=== PATIENT | male | born 1970 | race African-American/Black ===

== ENCOUNTER 2017-11-26 09:29 | Emergency (ER) | payer OTHER, SELFPAY ==
[2017-11-26 09:30] VITALS: BP 174/103; PULSE 100; RESP 16; TEMP 36.9; O2SAT 97; BMI 39.9
--- NOTE | 2017-11-26 09:45 | ED.DCSUM_ITS ---
- ER Visit Summary Date of Service: 11/26/17 Chief Complaint: Left groin pain History of Present Illness: The patient is a 47 M with left groin pain for the past couple of weeks. Patient was seen by a nurse practitioner at his PCPs office. He states he had a urinalysis and a testicular ultrasound done. He states he was called today and told that they saw something on ultrasound that requires follow-up with urology. Patient advised the pain was worse today so they had told him to come to the emergency room. He denies dysuria or hematuria. He denies fever or chills. Physical Examination: His are remarkable for a blood pressure 174/103, otherwise unremarkable. Head neck examination is unremarkable. Heart is regular rate and rhythm. Lung sounds are clear. Abdomen is soft with tenderness in the inferior aspect of the left lower quadrant. No masses are noted in the left inguinal region. He has active bowel sounds throughout. There is no CVA tenderness. Test Results: CBC and chemistry studies are significant only for a creatinine of 1.36. Urinalysis shows protein only. DT flank shows no acute process. There is mild colonic diverticulosis. There is no inguinal hernia. Emergency Department Course and Treatment: Patient was given morphine, Zofran, Toradol, and IV fluids. Ultrasound from the [facility] was obtained. There is prominent size of the epididymis bilaterally. There is a nodule in the tail of the epididymis on the right. There is calcification of the epididymis on the left. Small bilateral hydroceles are noted. On repeat evaluation the patient is resting comfortably. examination was performed he does have mild tenderness over the epididymis on the left. Patient now tells me that he did have antibiotics called into the pharmacy by the [facility]. I called the pharmacy and he has doxycycline as well as Cipro. I will write him a short course of Prosper to help cover pain. Treatment Plan: [] Disposition: Discharge Impression: Left-sided epididymitis This note was generated with [employer] dictation software. It may contain incorrect words, spelling, and punctuation that were not noted in review of the chart prior to signing ED Disposition - Plan for ED Patient: Chief Complaint: Other, Pain/Inj Referrals: Colton Hammond MD [Primary Care Provider] -
[2017-11-26] MEDS: Morphine 4 MG/ML Syringe IV (09:59)
[2017-11-26] MEDS: Ondansetron 4 MG/2 ML Vial IV (09:59)
[2017-11-26] MEDS: 0.9% Normal Saline 1,000 ML 150 ML IV (09:59)
[2017-11-26] MEDS: Ketorolac 30 MG/ML Syringe IV (09:59)
--- NOTE | 2017-11-26 10:05 | CT_ITS ---
STUDY: CT ABDOMEN AND PELVIS WITHOUT CONTRAST REASON FOR EXAM: Male, 47 years old. Groin pain for 2 weeks. RADIATION DOSAGE (If Supplied By Facility): CTDIvol = ( 22.58 ) mGy, DLP = ( 1212.81 ) mGycm TECHNIQUE: Transaxial images were obtained from the dome of the diaphragm to the symphysis pubis without oral contrast, and without intravenous contrast. Sagittal and coronal images were reconstructed. Individualized dose optimization techniques were used for this CT. COMPARISON: None. FINDINGS: The visualized lung bases are unremarkable. The visualized portions of the heart are within normal limits. Normal liver. Normal gallbladder and extrahepatic biliary system. Normal spleen. Normal pancreas. Normal bilateral adrenal glands. Normal right kidney. Normal left kidney. Normal visualized stomach. There is no evidence for dilated bowel, ascites or pneumoperitoneum. Small bowel has a grossly normal appearance. Stool is visible throughout the colon. There are scattered colonic diverticula. The appendix is visualized and appears normal. There is mild atherosclerotic calcification of the abdominal aorta, without a demonstrated aneurysm. Normal inferior vena cava. Normal retroperitoneum. Normal urinary bladder. Normal visualized prostate gland. Normal abdominal wall. Patient has had discectomy at L5-S1 and surgical fusion. CT/Abdomen/Pelvis without Cont IMPRESSION: 1. No CT evidence of acute intra-abdominal disease. 2. Mild colonic diverticulosis. 3. No CT evidence for inguinal hernia. Electronically Signed: Giselle Cordova MD at 10:53 EDT , Service support ,
[2017-11-26 10:15] LABS: Absolute Lymphocyte Count 2.91 X10^3/ul (0.83-4.51); Absolute Neutrophil Count 5.7 X10^3/uL (2.0-7.7); Anion Gap 7 (5-15); BUN 12 mg/dL (7-18); BUN/Creat Ratio 8.8 RATIO (10-20); Basophil# 0.02 X10^3/uL; Basophil% 0.2 % (0-1); Calcium,Total 9.2 mg/dL (8.5-10.1); Chloride 106 mmol/L (98-107); Creatinine, Serum 1.36 mg/dL (0.70-1.30); EST Glomerular Filtration Rate 60 mL/min (>60); Eosinophils% 1.1 % (0-5); Est Glom Filt Rate - Afr Amer 73 mL/min (>60); Estimated Creatinine Clearance 68.59 ml/min; Glucose 107 mg/dL (74-106); Hematocrit 43.3 % (40-54); Lymphocyte # 2.91 X10^3/ul (4.0); Lymphocyte % 31.1 % (19-41); Mean Corp Hgb Conc 34.6 g/gl (32-36); Mean Corpuscular Hgb 31.7 pg (27.0-32.0); Mean Corpuscular Volume 91.5 fL (80-94); Mean Platelet Vol. 11.1 fl (6.2-12.0); Monocyte# 0.59 X10^3/uL; Monocyte% 6.3 % (0-10); Neutrophil # 5.71 X10^3/uL (2.7-7.7); Platelet Count 241 K/mm3 (150-450); RBC Distribution Width CV 12.1 % (11.6-14.6); RBC Distribution Width SD 39.8 fl (35.1-43.9); Red Blood Count 4.73 M/mm3 (4.6-6.2); Sodium Level 140 mmol/L (136-145); White Blood Count 9.4 K/mm3 (4.4-11.0)
[2017-11-26 10:23] LABS: POSITIVE COUNT NO; POSITIVE DIFFERENTIAL NO; POSITIVE MORPHOLOGY NO
[2017-11-26 10:34] LABS: Bacteria 0 SEEN /hpf (None Seen); Mucous, Urine 0 SEEN /hpf (<or=2+); Red Blood Cells-Urine 0 SEEN /hpf (0-5); White Blood Cells 0 SEEN /hpf (0-5)
[2017-11-26 10:36] LABS: Color, Urine Yellow (Yellow); Glucose, Dipstick Normal (Normal); Ketone-Dipstick Negative (Negative); Leukocyte Esterase-Dipstick Negative /ul (Negative); Nitrite-Dipstick Negative (Negative); Occult Blood-Urine Negative /ul (Negative); Protein-Dipstick 15 mg/dl (Negative); Urine Bilirubin Dipstick Negative (Negative); Urine Clarity Clear (Clear); Urine Urobilinogen Normal (Normal)
[2017-11-26 10:51] LABS: Squamous Epithelial Cells - UA 0-5 SEEN /hpf (0-5)
--- NOTE | 2017-11-26 11:41 | DCINST.ED_ITS ---
ED Disposition - Plan for ED Patient: Disposition: Home or Assisted Living Chief Complaint: Other, Pain/Inj Instructions: ED Epididymitis Prescriptions: Hydrocodone Bitart/Apap 5-325 [[place] 5/325] 1 - 2 tablet PO Q6H PRN PRN 3 Days # 12 tablet PRN Reason: Pain Referrals: Colton Hammond MD [Primary Care Provider] - Stefano Enciso MD [STAFF PHYSICIAN] - 1-2 Weeks
[2017-11-26 12:14] VITALS: BP 135/89; PULSE 85; RESP 17
== END 2017-11-26 12:16 | disposition home or self-care (01) ==
PROVIDERS: Emergency Provider Emergency Medicine; Family Provider Family Medicine; PCP Family Medicine
DX: N45.1 Epididymitis (principal); N43.3 Hydrocele, unspecified; K57.30 Diverticulosis of large intestine without perforation or abscess without bleeding; E66.9 Obesity, unspecified; I10 Essential (primary) hypertension; Z86.39 Personal history of other endocrine, nutritional and metabolic disease; M54.9 Dorsalgia, unspecified; G89.29 Other chronic pain; Z79.899 Other long term (current) drug therapy; Z72.0 Tobacco use
CPT/HCPCS: 74176; 80048; 81001; 85025; 96361; 96374; 96375; 99283; J7030; A4216; J2405

== ENCOUNTER → 2020-06-05 17:16 | Outpatient (CLI) | payer BC, SELFPAY | PROVIDERS: PCP Family Medicine; Referring Provider Nurse Practitioner Family; Visit Provider Nurse Practitioner Family | DX: Z20.828 Contact with and (suspected) exposure to other viral communicable diseases (principal) | CPT/HCPCS: 87635; C9803; U0003 ==

== ENCOUNTER 2020-07-14 10:00 | Emergency (ER) | payer BC, SELFPAY ==
[2020-07-14 10:00] VITALS: BP 184/116; PULSE 91; RESP 16; TEMP 36.6; O2SAT 100; BMI 34.4
--- NOTE | 2020-07-14 10:18 | ED.VIS.GEN ---
History of Present Illness Informant: Patient Onset: Days Timing: Continuous Narrative: 49-year-old male with past medical history of hypertension presents with fever, chills, productive cough, body aches, and loss of taste and smell x3 days. He states last night and today he felt short of breath which is what brought him in. He feels wheezy like when he had childhood asthma but states he does not have asthma now or use any inhalers. He does smoke half pack per day. Denies sick contacts. Denies chest pain, nausea, vomiting, or abdominal pain. He did have minor loose stools. He is still eating and drinking normally. Denies recent surgery or travel, leg pain or swelling, hemoptysis, or history of DVT/PE. <Pam Bonner - Last Filed: 07/14/20 11:32> <Vincent Devi - Last Filed: 07/14/20 12:12> Chief Complaint: Shortness of Breath Past Medical History Past Medical History: - - Hypertension Surgical History: noncontributory Smoking Status: Current every day smoker <Pam Bonner - Last Filed: 07/14/20 11:32> <Vincent Devi - Last Filed: 07/14/20 12:12> - Allergies and Home Meds Allergies/Adverse Reactions: Allergies No Known Allergies Allergy (Verified 11/26/17 09:32) Primary Care Physician: Colton Hammond MD [Primary Care Provider] - Review of Systems General: Reports: Chills, Fever, Malaise. Denies: Sweats, Weight loss Eyes: Denies: Visual changes - bilaterally, Diplopia ENT: Denies: Rhinorrhea, Sore throat Cardiovascular: Denies: Chest pain, Palpitations Respiratory: Reports: Dyspnea, Cough, Sputum, Dyspnea on exertion. Denies: Orthopnea Gastrointestinal: Reports: Diarrhea. Denies: Abdominal pain, Nausea, Vomiting, Constipation, Melena, Hematochezia Genitourinary: Denies: Dysuria, Hematuria, Frequency Musculoskeletal: Reports: Myalgias. Denies: Swelling, Extremity Pain Skin: Denies: Rash, Wounds Neurological: Denies: Headache, Weakness, Parasthesia, Numbness <Pam Bonner - Last Filed: 07/14/20 11:32> Physical Exam Vital Signs/Narrative: Vital Signs Temp Pulse Resp BP Pulse Ox 07/14/20 10:00 97.8 F 91 16 184/116 H 100 General: Well nourished, Well developed, No Acute Distress Head: Normocephalic, Atraumatic Eyes: Perrl, EOMI ENT: Moist mucous membranes, No rhinorrhea Neck: Supple, Nontender Cardiovascular: Regular rate, Regular rhythm, No murmurs Respiratory: No distress, Chest nontender, - - Minor expiratory wheezing in right lung base, otherwise clear Abdomen: Soft, Nontender, Nondistended, Normal bowel sounds Back: Nontender, Normal Inspection Extremities: Nontender, No edema Skin: Normal color, No rash Neurological: Alert, Oriented x3, Cranial nerves II-XII grossly intact Psychological: Normal affect, Normal Mood <Pam Bonner - Last Filed: 07/14/20 11:32> Vital Signs/Narrative: Vital Signs Temp Pulse Resp BP Pulse Ox 07/14/20 11:28 81 16 168/84 H 99 07/14/20 10:00 97.8 F 91 16 184/116 H 100 <Vincent Devi - Last Filed: 07/14/20 12:12> Diagnostic/Tx/Re-eval Clinical Impression(s) from Imaging Studies Chest X-Ray 07/14/20 10:35 IMPRESSION: Normal x-ray examination of the chest. Electronically Signed: Davey Ghosh MD at 11:03 EST Tel , Service support , - Medical Decision Making Patient presented with symptoms consistent with Covid x3 days. He appears well nontoxic. Vital signs show BP of 184/116, otherwise normal. 100% on room air. He is conversing in full sentences in no respiratory distress. Lungs had very minor wheezing in the right lung base, otherwise normal exam. Chest x-ray was interpreted by ED attending and myself and shows no acute process. Radiology read agrees. Patient was given an albuterol inhaler and Tylenol. COVID-19 test is pending but I told him his symptoms are consistent with Covid and he needs to assume he has an self quarantine. I have no concern for ACS/PE with his history. He is also Wells and PERC negative. He is stable for outpatient management of his viral illness. I recommended rest, fluids, and [id number] pain medications. Return for new or worsening symptoms. He was agreeable and discharged home in stable condition. <Pam Bonner - Last Filed: 07/14/20 11:32> - Medical Decision Making Patient has cough and shortness of breath. He is a smoker. His vital signs all appear normal. His pulse ox is 100% on room air. Patient's chest x-ray is negative. He will be discharged home. His outpatient Covid test is pending. <Vincent Devi - Last Filed: 07/14/20 12:12> ED Disposition <Pam Bonner - Last Filed: 07/14/20 11:32> <Vincent Devi - Last Filed: 07/14/20 12:12> - Plan for ED Patient: Disposition: Home or Assisted Living Diagnosis: Viral respiratory illness Instructions: ED Upper Resp Infec No Abx Tx Referrals: Colton Hammond MD [Primary Care Provider] -
--- NOTE | 2020-07-14 10:35 | RAD_ITS ---
STUDY: X-RAY CHEST REASON FOR EXAM: Male, 49 years old. loss of taste and smell, sob TECHNIQUE: Single AP portable view of the chest. COMPARISON: 06/20/2016 FINDINGS: The lungs are clear and expanded. There is no demonstrated pleural abnormality. Normal size heart. Normal mediastinum and [place]. Normal visualized pulmonary arteries. Normal visualized aortic arch and descending thoracic aorta. Normal visualized thoracic spine. Normal visualized ribs, clavicles, and shoulders. There is no demonstrated abnormality of the visualized soft tissue structures of the upper abdomen. RAD/Chest 1 View (Portable) IMPRESSION: Normal x-ray examination of the chest. Electronically Signed: Davey Ghosh MD at 11:03 EST Tel , Service support ,
[2020-07-14] MEDS: Acetaminophen 500 MG Tablet 1000 MG PO (10:42)
[2020-07-14 11:28] VITALS: BP 168/84; PULSE 81; RESP 16; O2SAT 99
--- OUTSIDE RECORDS SUMMARY | 2020-08-21 05:23 | XMS RPT_ITS | CCD ---
:1970 External Reference #:[id number] Author Organization [facility] Care Team Providers Name Role Phone AMY VERDUGO Unavailable Unavailable Yocasta VERDUGO Unavailable Unavailable Unavailable Primary Care Provider Unavailable Allergies Reported Allergen Reaction(s) Severity Date of Onset Location LORazepam Translations: [ GI Upset 06-10-2016 - [facility] Other LORAZEPAM] [facility] PARoxetine Translations: GI Upset 12-25-2015 - [facility] Other [ PAROXETINE HCL] Dredge Runner ository sertraline Translations: GI Upset 06-10-2016 - [facility] Other [ SERTRALINE] [facility] Reposit ory Medications Medication Name Sig Date Prescriber Location Atenolol atenolol (TENORMIN) 50 01-19-2017 [facility] mg tablet Indications: (4419 5) Palpitations Take 1 tablet by mouth once daily. 90 tablet 3 01/19/2017 Active Comment: Take 1 tablet by mouth once daily. atorvastatin atorvastatin (LIPITOR) 01-19-2017 [facility] 80 mg tablet Take 1 (86920) tablet by mouth once daily. 90 tablet 1 01/19/2017 Active Comment: Take 1 tablet by mouth once daily. 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 30 capsule 1 02/29/2020 Active Comment: Take 1 capsule by mouth once daily. 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 30 tablet 1 02/29/2020 Active Comment: Take 1 tablet by mouth once daily. Problems Active Problems Category Problem Name Status Date Location Anxiety disorders Agoraphobia Active 01-24-2015 - [facility] ([id number]) Disorders of lipid Mixed hyperlipidemia Active 06-28-2014 [facility] metabolism (13585) Essential hypertension Essential hypertension Active 06-28-20 - [facility] (13073) Other liver diseases Steatosis of liver Active 03-28-2016 [facility] (66258) Substance-related Smoker Active 07-10-2016 - [facility] disorders (42718) Unclassified Unknown / UNK(Unknown) Active 07-02-2017 - [facility] (86392) Unclassified Patient encounter status Active 06-28-2014 - [facility] (64540) Past or Other Problems Category Problem Name Status Date Location Cardiac dysrhythmias Palpitations Completed 06-28-2014 - [facility] ([id number]) Other and unspecified Neurofibroma Completed 08-13-2014 - [facility] benign neoplasm (97455) Other screening for Liver function tests Completed 03-28-2016 - [facility] suspected conditions abnormal (02144) (not mental disorders or infectious disease) Residual codes; Current drinker Completed 07-10-2016 - [facility] unclassified (08654) Spondylosis; Low back pain Completed 07-03-2011 - [facility] ic intervertebral disc (62696) disorders; other back problems Results Result Name Value Range Unit Interpretation Flag Date Location [facility] on 2020-07-30 [facility] Telephone (FAMPWS) Normal 07-30-2020 [facility] JASON MOORE ([id number]) 1970 [facility] Date Time Provider Department ([id number]) 07/30/20 KOTA BARBA ([facility]) FAMPWS During your visit today, we recorded the following informati on about you: Jadon Martinez Cma 07/30/2020 12:49 PM Signed ----- Message from Kota (Dylan.Noel) BALBINA Barba DIMENSION STONE QUARRY SUPERVISOR sent at 07/30/2020 11:38 AM EST ----- Please inform the patient that their COVID19 test results ar e negative. No further testing is needed at this time. They should follow up with their PCP if they have additional concerns, questions or are still experiencing symptoms. Kota Barba DNP.CNP [facility] 07/30/2020 12:51 PM Signed Left message for patient to return call to office [facility] 07/31/2020 2:41 PM Signed No answer mychart message sent to patient [facility] Allergies As of Date: 07/30/2020 Noted Allergy Reaction ATIVAN (LORAZEPAM) 06/10/2016 8 - GI Upset PAXIL (PAROXETINE HCL) 12/25/2015 8 - GI Upset Comments: diarrhea ZOLOFT (SERTRALINE) 06/10/2016 8 - GI Upset Date Reviewed: 06/05/2020 Reviewed by: Oksana Sears LPN - Fully Assessed Reason for Visit: Results [95] Prescriptions as of 07/30/2020 Sig: HYDROCHLOROTHIAZIDE 12.5 MG C* Take 1 capsule by mouth once * LISINOPRIL 10 MG TABLET Take 1 tablet by mouth once d* ATENOLOL 50 MG TABLET Take 1 tablet by mouth once d* Patient not taking: Reported on 02/29/2020 ATORVASTATIN 80 MG TABLET Take 1 tablet by mouth once d* Patient not taking: Reported on 02/29/2020 Problem List As Of Date 07/30/2020 Noted Resolved Left-sided low back pain without sciatica [M54.*07/03/2011 Essential hypertension with goal blood pressure*06/28/2014 Palpitations [R00.2] 06/28/2014 More... Mixed hyperlipidemia [E78.2] 06/28/2014 Well adult exam [Z00.00] 06/28/2014 More... Neurofibroma [D36.10] 08/13/2014 More... Family history of malignant neoplasm of gastroi*09/28/2014 0 09/28/2014 Agoraphobia [F40.00] 01/24/2015 Situational anxiety [F41.8] 01/24/2015 Fatty liver [K76.0] 03/28/2016 Elevated LFTs [R79.89] 03/28/2016 Chronic bilateral low back pain without sciatic*06/10/2016 Prostate cancer screening [Z12.5] 07/10/2016 Smoker [F17.200] 07/10/2016 More... Alcohol use [Z72.89] 07/10/2016 More... Encounter Status:Closed by WORKMAN JADON WHITE on 07/31/20 progress on 2020-06 PROGRESS HNO ID: [id number] Normal 07-23-2020 [facility] Author: Kota (Dnp.Noel) JOSEE Barba [place] [facility] ([id number]) Service: ? Author Type: Nurse Practitioner Type: Progress Notes Filed: 07/23/2020 8:12 AM Note Text: Telemedicine Evaluation for Suspected COVID-19 Infection or COVID19 like symptoms. This Team Access Model visit is a virtual encounter. It requ ired patient-provider interaction for the medical decision making as documented below. Patient was offered a virtual/telemedicine appointmen t in lieu of an office visit due to recommendations to reduce patient exp osure to COVID-19. HIPAA secured video was used for evaluation of this patient. Patient agrees to the visit: Yes Patient Location: [place] Chief Complaint Patient presents with: Covid19 Concern SUBJECTIVE: Jason Moore is an 49 year old who presents with an illness that began 10 day(s) ago and are improving since that time. Reports: Seen at [facility] emergency room on July 15 for Covid-like symptoms. Had Covid symptoms that started on . Was treated at the emergency room at [facility] and tested positive for Covid. He was notified on the that he had tested positive. Had diarrhea, fever, cough, shortness of breath, l oss of taste and smell and just not feeling well. He has been fever free for over 72 hours. He just has a small amount of occasional loose stool/ diarrhea. Still has some loss of taste and smell but that is gradually returning. Currently needs a confirmatory test to return to work. Reque sting that to be completed. Otherwise he is recovering from his symptoms. He is on quarantine through today. Has the patient had any ill contacts? No Does the patient have the following symptoms or signs? *Fever: (Temp 100.4F or greater) No *Coughing: Yes *Shortness of breath: No Chills or shaking with chills: No Muscle aches/pain: No New loss of taste or smell: Yes Headache: No Decreased level of consciousness: No Nasal congestion: No Sore throat: No Vomiting: No Diarrhea: Yes Decreased appetite: No Signs of dehydration (low fluid intake or voiding, diarrhea, dry mucus membranes): No Past medical history, appointments, medications, allergies r miguel angel 07/23/2020 Previous Medical History PAST MEDICAL HISTORY Diagnosis Date - Back pain - Hypertension Previous Surgical History PAST SURGICAL HISTORY Procedure Laterality Date - APPL-INTERVERTEBRAL BIOMECHANICAL DEVICES - COLONOSCOP W/ OR W/O BRSH SPEC 09/28/14 Colonoscopy, repeat 5 yrs - INSERT VERT FIX DEV,ANT,3 SGMTS - PAST SURGICAL HISTORY OF back injections and disc biopsy - SPIN BONE ALLOGRFT STRUCTURAL 2012 FUSION AND REPLACED DISC Review of Symptoms GENERAL: No malaise or fatigue. No fevers. HEENT: Negative for headaches No earaches No sore throat Nose negative for congestion and nasal discharge NECK: Negative for pain or swelling. No lumps RESPIRATORY: No wheezing, SOB, Difficulty breathing. Minimal dry cough CARDIOVASCULAR: Negative for chest pain GI: No nausea, vomiting. Occ diarrhea/loose stool MUSCULOSKELETAL: Negative for bodyaches SKIN: Negative for rash or itching EXAM/OBJECTIVE: There were no vitals taken for this visit. Virtual visit completed using video, limited exam completed. Patient sounds or appears ill: No General Appearance: Well appearing, alert, in no acute distr ess, well-hydrated, well nourished. Skin: Skin color normal Head: Normocephalic. No facial swelling or redness. EENT: Eyes nonreddened. No discharge. External ears nonredde ellis and no swelling. Neck: No mass or lesions. No swelling. FROM Patient is not able to speak in complete sentences: No Patient has labored breathing: No. Is audibly coughing: No Psych: Attitude - Cooperative, easily engaged in conversatio n Affect - Euthymic, normal mood Mental status: Alert. Speech is clear and fluent with good r epetition, comprehension Appearance - Normal hygiene and grooming appropriate Coordination: No abnormal or extraneous movements. Gait/Stance: Posture is normal. Data reviewed Last 5 Encounter BP Readings: Date: BP: 06/05/2020 172/102 02/29/2020 156/100 11/22/2017 150/98 11/13/2016 132/90 07/10/2016 120/70 BMI Readings from Last 5 Encounters: 06/05/20 : 35.25 kg/m? 02/29/20 : 35.52 kg/m? 11/22/17 : 40.32 kg/m? 11/13/16 : 36.39 kg/m? 07/10/16 : 35.26 kg/m? Last 5 Encounter Wt Readings: Date: Wt: 06/05/2020 109.9 kg (242 lb 3.2 oz) 02/29/2020 110.7 kg (244 lb) 11/22/2017 125.6 kg (277 lb) 11/13/2016 113.4 kg (250 lb) 07/10/2016 110.7 kg (244 lb) Medication and allergy list reviewed, reconciled and updated 07/23/2020 ASSESSMENT/PLAN: See encounter diagnoses and orders for additional plan. This patient encounter involved the screening or treatment o f novel coronavirus infection (COVID-19). ASSESSMENT/PLAN: 1. Lab test positive for detection of COVID-19 virus - ICD9: 079.89, ICD10: U07.1 Tested positive at [facility] Symptoms are resolving/improving Needs confirmatory test to return to work - Off quarantine N ovember 25 He has been fever free for greater than 24 hours. Lab test ordered for [facility] to be comple alexandrea there. Orders faxed by nursing staff. Patient will be informed of test results once returned. Kota Barba DNP.PRESIDENT PRACTICING UROLOGIST This note was completed with [employer] dictation software. Note was reviewed for accuracy. There may be minor misspellings or gr ammar miscues with [employer]apter[employer] Dictation. [facility] [address], [place] [address] Total appointment time on virtual with patient = 12 minutes SIGNATURE: Kota Barba DNP.PRESIDENT PRACTICING UROLOGIST DATE: July 23, 2020 cnpn on 2020-07-22 CNPN Telephone (FAMPWS) Normal 07-22-2020 [place] [facility] JASON MOORE ([id number]) 1970 [facility] Date Time Provider Department ([id number]) 07/22/20 KOTA BARBA (DNP.PRESIDENT PRACTICING UROLOGIST) FAMPWS During your visit today, we recorded the following informati on about you: Zane Johnson RN 07/22/2020 11:25 AM Signed Pt called, verified by name and birthdate. Pt states h e was tested at [facility] on 07-14-2020 and was COVID +. Pt scheduled for follow up visit with PCP on 07-23-2020 Zane Johnson RN Allergies As of Date: 07/22/2020 Noted Allergy Reaction ATIVAN (LORAZEPAM) 06/10/2016 8 - GI Upset PAXIL (PAROXETINE HCL) 12/25/2015 8 - GI Upset Comments: diarrhea ZOLOFT (SERTRALINE) 06/10/2016 8 - GI Upset Date Reviewed: 06/05/2020 Reviewed by: Oksana Sears LPN - Fully Assessed Reason for Visit: COVID + [Other] Prescriptions as of 07/22/2020 Sig: HYDROCHLOROTHIAZIDE 12.5 MG C* Take 1 capsule by mouth once * LISINOPRIL 10 MG TABLET Take 1 tablet by mouth once d* ATENOLOL 50 MG TABLET Take 1 tablet by mouth once d* Patient not taking: Reported on 02/29/2020 ATORVASTATIN 80 MG TABLET Take 1 tablet by mouth once d* Patient not taking: Reported on 02/29/2020 Problem List As Of Date 07/22/2020 Noted Resolved Left-sided low back pain without sciatica [M54.*07/03/2011 Essential hypertension with goal blood pressure*06/28/2014 Palpitations [R00.2] 06/28/2014 More... Mixed hyperlipidemia [E78.2] 06/28/2014 Well adult exam [Z00.00] 06/28/2014 More... Neurofibroma [D36.10] 08/13/2014 More... Family history of malignant neoplasm of gastroi*09/28/2014 0 09/28/2014 Agoraphobia [F40.00] 01/24/2015 Situational anxiety [F41.8] 01/24/2015 Fatty liver [K76.0] 03/28/2016 Elevated LFTs [R79.89] 03/28/2016 Chronic bilateral low back pain without sciatic*06/10/2016 Prostate cancer screening [Z12.5] 07/10/2016 Smoker [F17.200] 07/10/2016 More... Alcohol use [Z72.89] 07/10/2016 More... Encounter Status:Closed by ZANE JOHNSON RN on 07/22/20 noeln on 2020-06-09 CNPN Telephone (UCWSTR) Normal 06-09-2020 [place] JASON Phillips ([id number]) 1970 [facility] Date Time Provider Department ([id number]) 06/09/20 YANY LUCERO UCWSTR During your visit today, we recorded the following informati on about you: Yany Lucero APRN.CNP 06/09/2020 9:23 AM Signed Please notify of negative covid test. Continue comfort measures for symptoms as you would for a cold. Any worsening symptoms follow up [facility] PCP or ER. JOSEE Chicas Ma 06/09/2020 10:54 AM Signed Patient notified of results, verbalizes understanding of instructions. Patient requesting a letter in [employer] to return to work. 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 Yany Lucero APRN.CNP 06/09/2020 10:59 AM Signed Letter generated and left at it help desk analyst for patient. Yany Lucero APRN.CNP Allergies As of Date: 06/09/2020 Noted Allergy Reaction ATIVAN (LORAZEPAM) 06/10/2016 8 - GI Upset PAXIL (PAROXETINE HCL) 12/25/2015 8 - GI Upset Comments: diarrhea ZOLOFT (SERTRALINE) 06/10/2016 8 - GI Upset Date Reviewed: 06/05/2020 Reviewed by: Oksana Sears LPN - Fully Assessed Reason for Visit: Results [95] Prescriptions as of 06/09/2020 Sig: HYDROCHLOROTHIAZIDE 12.5 MG C* Take 1 capsule by mouth once * LISINOPRIL 10 MG TABLET Take 1 tablet by mouth once d* ATENOLOL 50 MG TABLET Take 1 tablet by mouth once d* Patient not taking: Reported on 02/29/2020 ATORVASTATIN 80 MG TABLET Take 1 tablet by mouth once d* Patient not taking: Reported on 02/29/2020 Problem List As Of Date 06/09/2020 Noted Resolved Left-sided low back pain without sciatica [M54.*07/03/2011 Essential hypertension with goal blood pressure*06/28/2014 Palpitations [R00.2] 06/28/2014 More... Mixed hyperlipidemia [E78.2] 06/28/2014 Well adult exam [Z00.00] 06/28/2014 More... Neurofibroma [D36.10] 08/13/2014 More... Family history of malignant neoplasm of gastroi*09/28/2014 0 09/28/2014 Agoraphobia [F40.00] 01/24/2015 Situational anxiety [F41.8] 01/24/2015 Fatty liver [K76.0] 03/28/2016 Elevated LFTs [R79.89] 03/28/2016 Chronic bilateral low back pain without sciatic*06/10/2016 Prostate cancer screening [Z12.5] 07/10/2016 Smoker [F17.200] 07/10/2016 More... Alcohol use [Z72.89] 07/10/2016 More... Encounter Status:Closed by YANY LUCERO CNP on 06/09/20 cnco on 2020-06-09 [facility] Letter Text Normal 06-09-2020 [facility] ([id number]) cnpn on 2020-06-08 CNPN Telephone (FAMPWS) Normal 06-08-2020 [facility] JASON MOORE ([id number]) [address] [facility] Time Provider Department ([id number]) 06/08/20 [facility] FAMPWS During your visit today, we recorded the following informati on about you: Alisha Lawton Ma 06/08/2020 11:58 AM Signed Received negative covid test results from [facility] ordered by [facility] ent care Patient was notified Alisha Lawton Ma Allergies As of Date: 06/08/2020 Noted Allergy Reaction ATIVAN (LORAZEPAM) 06/10/2016 8 - GI Upset PAXIL (PAROXETINE HCL) 12/25/2015 8 - GI Upset Comments: diarrhea ZOLOFT (SERTRALINE) 06/10/2016 8 - GI Upset Date Reviewed: 06/05/2020 Reviewed by: Oksana Sears LPN - Fully Assessed Reason for Visit: Covid Follow Up [7216] Cmt: test results- neg Prescriptions as of 06/08/2020 Sig: HYDROCHLOROTHIAZIDE 12.5 MG C* Take 1 capsule by mouth once * LISINOPRIL 10 MG TABLET Take 1 tablet by mouth once d* ATENOLOL 50 MG TABLET Take 1 tablet by mouth once d* Patient not taking: Reported on 02/29/2020 ATORVASTATIN 80 MG TABLET Take 1 tablet by mouth once d* Patient not taking: Reported on 02/29/2020 Problem List As Of Date 06/08/2020 Noted Resolved Left-sided low back pain without sciatica [M54.*07/03/2011 Essential hypertension with goal blood pressure*06/28/2014 Palpitations [R00.2] 06/28/2014 More... Mixed hyperlipidemia [E78.2] 06/28/2014 Well adult exam [Z00.00] 06/28/2014 More... Neurofibroma [D36.10] 08/13/2014 More... Family history of malignant neoplasm of gastroi*09/28/2014 0 09/28/2014 Agoraphobia [F40.00] 01/24/2015 Situational anxiety [F41.8] 01/24/2015 Fatty liver [K76.0] 03/28/2016 Elevated LFTs [R79.89] 03/28/2016 Chronic bilateral low back pain without sciatic*06/10/2016 Prostate cancer screening [Z12.5] 07/10/2016 Smoker [F17.200] 07/10/2016 More... Alcohol use [Z72.89] 07/10/2016 More... Encounter Status:Closed by ALISHA LAWTON MA on 0 progress on 2020-05 PROGRESS HNO ID: [id number] Normal 06-05-2020 [facility] Author: Ronit Morin) [id number] Service: ? Author Type: Nurse Practitioner Type: Progress Notes Filed: 06/05/2020 9:23 AM Note Text: SUBJECTIVE Jason Moore is a 49 year old male who presents with 2 days of symptoms that are stable. Symptoms include: Fever (?100.4F): No or Chills: Yes Cough: Yes Shortness of breath: No or Difficulty breathing: No Fatigue: Yes Muscle aches: Yes Headache: Yes New loss of smell or taste: Yes Sore throat: Yes Nasal congestion: No or Rhinorrhea: No Nausea: Yes or Vomiting: No Diarrhea: No High risk category assessment Hypertension Exposures: Sick contacts? No Contact with anyone confirmed or probable COVID-19 infection in the last 14 days? No Family with confirmed COVID-19 infection? No Traveled or resided in an area with sustained or ongoing com munity transmission of COVID-19? Yes OTC meds/remedies that patient has tried: acetaminophen and NSAIDs. He reports that he has been smoking. He has a 10.50 pack-yea r smoking history. He has never used smokeless tobacco. BP 172/102 Pulse 82 Temp 36.7 ?C (98.1 ?F) (Tympanic) Resp 18 Wt 109.9 kg (242 lb 3.2 oz) BMI 35.25 kg/m? PAST MEDICAL HISTORY Diagnosis Date - Back pain - Hypertension PAST SURGICAL HISTORY Procedure Laterality Date - APPL-INTERVERTEBRAL BIOMECHANICAL DEVICES - COLONOSCOP W/ OR W/O BRSH SPEC 09/28/14 Colonoscopy, repeat 5 yrs - INSERT VERT FIX DEV,ANT,3 SGMTS - PAST SURGICAL HISTORY OF back injections and disc biopsy - SPIN BONE ALLOGRFT STRUCTURAL 2011 FUSION AND REPLACED DISC ALLERGIES Ativan [Lorazepam], Paxil [Paroxetine Hcl], and Zo loft [Sertraline] MEDICATIONS Hydrochlorothiazide 12.5 mg capsule Take 1 capsule by mouth once daily. lisinopril (ZESTRIL, PRINIVIL) 10 mg tablet Take 1 tablet by mouth once daily. atenolol (TENORMIN) 50 mg tablet Take 1 tablet by mouth once daily. atorvastatin (LIPITOR) 80 mg tablet Take 1 tablet by mouth o nce daily. FAMILY HISTORY Problem Relation Age of Onset - Colon Cancer Father 50 - Diabetes Father - Hypertension Father - Prostate Cancer Father 54 - Colon Cancer Paternal Grandfather - Diabetes Paternal Grandfather - Prostate Cancer Paternal Grandfather 50'S - Colon Cancer Paternal Uncle LATE 50'S - Coronary Artery Disease Maternal Aunt - Diabetes Paternal Uncle - Diabetes Paternal Aunt - Hypertension Paternal Grandmother - Hypertension Paternal Aunt - Hypertension Paternal Uncle - Hypertension Maternal Aunt - Hypertension Maternal Aunt - Prostate Cancer Paternal Uncle 50'S Social History Tobacco Use - Smoking status: Current Every Day Smoker Packs/day: 0.50 Years: 21.00 Pack years: 10.50 - Smokeless tobacco: Never Used Substance Use Topics - Alcohol use: Yes Comment: moderate amount of alcohol - Drug use: Not on file Physical Exam Constitutional: Appearance: Normal appearance. HENT: Nose: Nose normal. Mouth/Throat: Mouth: Mucous membranes are moist. Pharynx: Oropharynx is clear. Cardiovascular: Rate and Rhythm: Normal rate and regular rhythm. Heart sounds: Normal heart sounds. Pulmonary: Effort: Pulmonary effort is normal. No respiratory distress. Breath sounds: Normal breath sounds. No wheezing or rales. Skin: General: Skin is warm and dry. Neurological: Mental Status: He is alert. ASSESSMENT/PLAN No diagnosis found. ASSESSMENT/PLAN: 1. Suspected COVID-19 virus infection - ICD9: V01.79, ICD10: Z20.828 (primary diagnosis) - [facility] Advised self-isolation of patient for 10 days from symptom onset or until COVID 19 test is negative. 2. Viral URI with cough - ICD9: 465.9, ICD10: J06.9 - Discussed viral etiology and rationale for treatment. - Symptomatic treatment with prn analgesia - Supportive care with fluids and rest - The patient may also use warm salt water gargles, throat l ozenges and/or OTC throat spray as needed 3. Uncontrolled hypertension - ICD9: 401.9, ICD10: I10 - noncompliance - Recommend home blood pressure monitoring, to bring results in on next visit - Reviewed risks of HTN and principles of treatment - discussed with patient, he admits to not taking his HTN me dication in the last week. Encouraged compliance with medication. - Follow-up with your PCP in 3-5 days if symptoms have not i mproved or sooner if symptoms worsen - Discussed red flags and need for immediate medical evaluat ion if any occur. - Discussed supportive care treatment with fluids, rest and analgesia. - Discussed expected course of illness . Ronit Ghosh APRN.CNP Jason Moore appears to have COVID-19 infection and is high risk or with concerning symptoms, recommend COVID-19 testing. This patient encounter involved the screening or treatment o f novel coronavirus infection (COVID-19). - Red flags for in person care discussed - All questions answered SIGNATURE: Ronit Ghosh APRN.CNP PATIENT NAME: Jason Moore DATE: June 05, 2020 TIME: 9:00 AM cnov on 2020-06-05 CNOV Office Visit (UCWSTR) Normal 06-05-[address] [place] [address] [facility] JASON MOORE ([id number]) [address] [facility] Time Provider Department ([id number]) 06/05/20 8:45 AM RONIT GHOSH (PRESIDENT PRACTICING UROLOGIST) WSTR During your visit today, we recorded the following informati on about you: Temperature Pulse Respiration Blood pressure 98.1 degrees 82/minute 18/minute 172/102 Weight 109.9 kg Ronit Ghosh APRN.CNP 06/05/2020 9:23 AM Signed SUBJECTIVE Jason Moore is a 49 year old male who presents with 2 days of symptoms that are stable. Symptoms include: Fever (?100.4F): No or Chills: Yes Cough: Yes Shortness of breath: No or Difficulty breathing: No Fatigue: Yes Muscle aches: Yes Headache: Yes New loss of smell or taste: Yes Sore throat: Yes Nasal congestion: No or Rhinorrhea: No Nausea: Yes or Vomiting: No Diarrhea: No High risk category assessment Hypertension Exposures: Sick contacts? No Contact with anyone confirmed or probable COVID-19 infecti on in the last 14 days? No Family with confirmed COVID-19 infection? No Traveled or resided in an area with sustained or ongoing com munity transmission of COVID-19? Yes OTC meds/remedies that patient has tried: acetaminophen and NSAIDs. He reports that he has been smoking. He has a 10.50 pack-year smoking history. He has never used smokeless tobacco. BP 172/102 Pulse 82 Temp 36.7 ?C (98.1 ?F) (Tympanic) Resp 18 Wt 109.9 kg (242 lb 3.2 oz) BMI 35.25 kg/m? PAST MEDICAL HISTORY Diagnosis Date - Back pain - Hypertension PAST SURGICAL HISTORY Procedure Laterality Date - APPL-INTERVERTEBRAL BIOMECHANICAL DEVICES - COLONOSCOP W/ OR W/O BRSH SPEC 09/28/14 Colonoscopy, repeat 5 yrs - INSERT VERT FIX DEV,ANT,3 SGMTS - PAST SURGICAL HISTORY OF back injections and disc biopsy - SPIN BONE ALLOGRFT STRUCTURAL 2012 FUSION AND REPLACED DISC ALLERGIES Ativan [Lorazepam], Paxil [Paroxetine Hcl], and Zoloft [Sertraline] MEDICATIONS Hydrochlorothiazide 12.5 mg capsule Take 1 capsule by mouth once daily. lisinopril (ZESTRIL, PRINIVIL) 10 mg tab let Take 1 tablet by mouth once daily. atenolol (TENORMIN) 50 mg tablet Take 1 tablet by mouth once daily. atorvastatin (LIPITOR) 80 mg tablet Take 1 tablet by mouth o nce daily. FAMILY HISTORY Problem Relation Age of Onset - Colon Cancer Father 50 - Diabetes Father - Hypertension Father - Prostate Cancer Father 54 - Colon Cancer Paternal Grandfather - Diabetes Paternal Grandfather - Prostate Cancer Paternal Grandfather 50'S - Colon Cancer Paternal Uncle LATE 50'S - Coronary Artery Disease Maternal Aunt - Diabetes Paternal Uncle - Diabetes Paternal Aunt - Hypertension Paternal Grandmother - Hypertension Paternal Aunt - Hypertension Paternal Uncle - Hypertension Maternal Aunt - Hypertension Maternal Aunt - Prostate Cancer Paternal Uncle 50'S Social History Tobacco Use - Smoking status: Current Every Day Smoker Packs/day: 0.50 Years: 21.00 Pack years: 10.50 - Smokeless tobacco: Never Used Substance Use Topics - Alcohol use: Yes Comment: moderate amount of alcohol - Drug use: Not on file Physical Exam Constitutional: Appearance: Normal appearance. HENT: Nose: Nose normal. Mouth/Throat: Mouth: Mucous membranes are moist. Pharynx: Oropharynx is clear. Cardiovascular: Rate and Rhythm: Normal rate and regular rhythm. Heart sounds: Normal heart sounds. Pulmonary: Effort: Pulmonary effort is normal. No respiratory distress. Breath sounds: Normal breath sounds. No wheezing or rales. Skin: General: Skin is warm and dry. Neurological: Mental Status: He is alert. ASSESSMENT/PLAN No diagnosis found. ASSESSMENT/PLAN: 1. Suspected COVID-19 virus infection - ICD9: V0 1.79, ICD10: Z20.828 (primary diagnosis) - 2019 CORONAVIRUS- test ordered at [facility]. Advised self-isolation of patient fo r 10 days from symptom onset or until COVID 19 test is negative. 2. Viral URI with cough - ICD9: 465.9, ICD10: J06.9 - Discussed viral etiology and rationale for treatment. - Symptomatic treatment with prn analgesia - Supportive care with fluids and rest - The patient may also use warm salt haresh er gargles, throat lozenges and/or OTC throat spray as needed 3. Uncontrolled hypertension - ICD9: 401.9, ICD10: I10 - noncompliance - Recommend home blood pressure monitoring, to b ring results in on next visit - Reviewed risks of HTN and principles of treatment - discussed with patient, he admits to not taking his HTN medication in the last week. Encouraged compliance with medication. - Follow-up with your PCP in 3-5 days if symptom s have not improved or sooner if symptoms worsen - Discussed red flags and need for immediate med ical evaluation if any occur. - Discussed supportive care treatment with fluids, rest and analgesia. - Discussed expected course of illness . Ronit Ghosh APRN.PRESIDENT PRACTICING UROLOGIST Jason Moore appears to have COVID-19 infection and is high risk or with concerning symptoms, recommend COVID-19 testing. This patient encounter invol kiersten the screening or treatment of novel coronavirus infection (COVID-19). - Red flags for in person care discussed - All questions answered SIGNATURE: Ronit Ghosh APRN.CNP PATIENT NAME: Jason Moore DATE: June 05, 2020 TIME: 9:00 AM Ronit Ghosh APRN.CNP 06/05/2020 9:14 AM Signed ASSESSMENT/PLAN: 1. Suspected COVID-19 virus infection - ICD9: V0 1.79, ICD10: Z20.828 (primary diagnosis) - 2018 CORONAVIRUS- test ordered at [facility] [place] [facility]. Advised self-isolation of patient fo r 10 days from symptom onset or until COVID 19 test is negative. 2. Viral URI with cough - ICD9: 465.9, ICD10: J06.9 - Discussed viral etiology and rationale for treatment. - Symptomatic treatment with prn analgesia - Supportive care with fluids and rest - The patient may also use warm salt haresh er gargles, throat lozenges and/or OTC throat spray as needed - Follow-up with your PCP in 3-5 days if symptom s have not improved or sooner if symptoms worsen - Discussed red flags and need for immediate med ical evaluation if any occur. - Discussed supportive care treatment with fluids, rest and analgesia. - Discussed expected course of illness . Ronit Ghosh APRN.CNP Separate yourself from other people in your home, this is kn own as home isolation. Stay away from others: As mu ch as possible, you should stay in a specific ?sick room? and away from other people in your home. Use a separat e bathroom, if available. Limit contact with pets AND animals: You should restrict contact with pets and other animals, just like you would around other people. Although there have not been reports of pets or other anim als becoming sick with COVID-19, it is still r ecommended that people with the virus limit contact with animals until more information is known. When possible, have another member of your household care fo r your animals while you are sick with COVID-19. If you must care for your pet or be around animals while you are sick, wash your zayas nds before and after you interact with them. Treatment for Viral Upper Respiratory Tract Infections Your body will kill off the virus by itself. Add itionally, you can prime your body's immune system. This may help you get better more irma desai. 1. Drink lots of fluids - at least one gallon of non-caffeinated liquids per day 2. Make sure you are eating well 3. Get plenty of rest - at l east 8 hours of sleep per night for adults and more for children We do not have any medications that kill off these viruses . Antibiotics are used to treat bacterial infections; marie beth, they are not active against viral infections. There are some things that might help you feel b michael, though. 1. Vaporizers, humidifiers, hot showers, and hot fluids help open respiratory and sinus passages 2. Sudafed is a safe and effective decongestant 3. Ferry Nasal Amado may offer relief of nasal and head guido estion 4. Dick's Vapor Rub placed on a hot towe l and draped over the head may relieve congestion 5. Tylenol and Advil help control fevers and headaches 6. Salt water gargles help relieve sore throats 7. Chloraceptic spray or throat lozenges may also help relie ve sore throat symptoms 8. Robitussin DM will help loosen up sec retions and also provide relief from a cough Occasionally, viral infections turn into something more se rious. You should see your doctor or return to the Urgent Care if: 1. You have fevers for longer than five days 2. You have fevers above 102 degrees 3. You are still sick after 10 days 4. You have shortness of breath or wheezing 5. After several days you are getting worse rather than bett er Referring Provider: SELF [200] Allergies As of Date: 06/05/2020 Noted Allergy Reaction ATIVAN (LORAZEPAM) 06/10/2016 8 - GI Upset PAXIL (PAROXETINE HCL) 12/25/2015 8 - GI Upset Comments: diarrhea ZOLOFT (SERTRALINE) 06/10/2016 8 - GI Upset Date Reviewed: 06/05/2020 Reviewed by: Oksana Sears LPN - Fully Assessed Reason for Visit: Sore Throat [200] Cmt: ST, cough, ZAYAS, crampy x 2 days Primary Visit Diagnosis:Suspected COVID-19 virus infection [ Z20.828] Other Visit Diagnoses:Viral URI with cough [J06.9] Uncontrolled hypertension [I10] Order(s):2019 CORONAVIRUS [SQCOVID] Order #: [id number] [facility] 2019 CORONAVIRUS [SQCOVID] Order #: [id number] Prescriptions as of 06/05/2020 Sig: HYDROCHLOROTHIAZIDE 12.5 MG C* Take 1 capsule by mouth once * LISINOPRIL 10 MG TABLET Take 1 tablet by mouth once d* ATENOLOL 50 MG TABLET Take 1 tablet by mouth once d* Patient not taking: Reported on 02/29/2020 ATORVASTATIN 80 MG TABLET Take 1 tablet by mouth once d* Patient not taking: Reported on 02/29/2020 Problem List As Of Date 06/05/2020 Noted Resolved Left-sided low back pain without sciatica [M54.*07/03/2011 Essential hypertension with goal blood pressure*06/28/2014 Palpitations [R00.2] 06/28/2014 More... Mixed hyperlipidemia [E78.2] 06/28/2014 Well adult exam [Z00.00] 06/28/2014 More... Neurofibroma [D36.10] 08/13/2014 More... Family history of malignant neoplasm of gastroi*09/28/2014 0 09/28/2014 Agoraphobia [F40.00] 01/24/2015 Situational anxiety [F41.8] 01/24/2015 Fatty liver [K76.0] 03/28/2016 Elevated LFTs [R79.89] 03/28/2016 Chronic bilateral low back pain without sciatic*06/10/2016 Prostate cancer screening [Z12.5] 07/10/2016 Smoker [F17.200] 07/10/2016 More... Alcohol use [Z72.89] 07/10/2016 More... Other instructions from your clinician: ASSESSMENT/PLAN: 1. Suspected COVID-19 virus infection - ICD9: V01.79, ICD10: Z20.828 (primary diagnosis) - [facility] Advised self-isolation of patient for 10 days from symptom onset or until COVID 19 test is negative. 2. Viral URI with cough - ICD9: 465.9, ICD10: J06.9 - Discussed viral etiology and rationale for treatment. - Symptomatic treatment with prn analgesia - Supportive care with fluids and rest - The patient may also use warm salt water gargles, throat l ozenges and/or OTC throat spray as needed - Follow-up with your PCP in 3-5 days if symptoms have not i mproved or sooner if symptoms worsen - Discussed red flags and need for immediate medical evaluat ion if any occur. - Discussed supportive care treatment with fluids, rest and analgesia. - Discussed expected course of illness . Ronit Ghosh APRN.PRESIDENT PRACTICING UROLOGIST Separate yourself from other people in your home, this is kn own as home isolation. Stay away from others: As much as possible, you should stay in a specific ?sick room? and away from other people in your home. Use a s eparate bathroom, if available. Limit contact with pets AND animals: You should restrict con tact with pets and other animals, just like you would around other people. Although there have not been reports of pets or other animal s becoming sick with COVID-19, it is still recommended that people with the virus limit contact with animals until more information is known. When possible, have another member of your household care fo r your animals while you are sick with COVID-19. If you must care for your pet or be around animals while you are sick, wash your hands before an d after you interact with them. Treatment for Viral Upper Respiratory Tract Infections Your body will kill off the virus by itself. Additionally, y ou can prime your body's immune system. This may help you get better more quickly. 1. Drink lots of fluids - at least one gallon of non-caffein ated liquids per day 2. Make sure you are eating well 3. Get plenty of rest - at least 8 hours of sleep per night for adults and more for children We do not have any medications that kill off these viruses. Antibiotics are used to treat bacterial infections; however, they are no t active against viral infections. There are some things that might h elp you feel better, though. 1. Vaporizers, humidifiers, hot showers, and hot fluids help open respiratory and sinus passages 2. Sudafed is a safe and effective decongestant 3. Ferry Nasal Amado may offer relief of nasal and head guido estion 4. Dick's Vapor Rub placed on a hot towel and draped over th e head may relieve congestion 5. Tylenol and Advil help control fevers and headaches 6. Salt water gargles help relieve sore throats 7. Chloraceptic spray or throat lozenges may also help relie ve sore throat symptoms 8. Robitussin DM will help loosen up secretions and also pro vide relief from a cough Occasionally, viral infections turn into something more seri ous. You should see your doctor or return to the Urgent Care if: 1. You have fevers for longer than five days 2. You have fevers above 102 degrees 3. You are still sick after 10 days 4. You have shortness of breath or wheezing 5. After several days you are getting worse rather than bett er Disposition: Return if symptoms worsen or fail to improve. Follow-up and Disposition History Recorded Letter Text Encounter Status:Closed by RONIT GHOSH on 06/05/20 nusrat on 2020-03-13 NUSRAT Telephone (FAMPWS) Normal 03-13-2020 [facility] JASON MOORE ([id number]) 1970 [facility] Date Time Provider Department ([id number]) 03/13/20 KOTA BARBA (YOLI[facility] During your visit today, we recorded the following informati on about you: Kota Barba DNP.NOEL, AGRICULTURE SPECIALIST.NOEL 03/13/2020 9:14 AM Signed Team - He had a small amount of protein in his urine. Lara pizano have him repeat this in 1 week. ASSESSMENT/PLAN: 1. Proteinuria, unspecified type - ICD9: 791.0, ICD10: R80.9 Repeat in 1 week - URINALYSIS, WITH MICROSCOPIC Kota Barba DNP.CNP This note was completed with [employer] software. Note was reviewed for accuracy. There may be minor misspellings or gramm ar miscues with [employer] Dictation. [place] [id number] Elle Salazar CMA, MA 03/13/2020 9:41 AM Signed Detailed message left for patient. Elle Salazar CMA Allergies As of Date: 03/13/2020 Noted Allergy Reaction ATIVAN (LORAZEPAM) 06/10/2016 8 - GI Upset PAXIL (PAROXETINE HCL) 12/25/2015 8 - GI Upset Comments: diarrhea ZOLOFT (SERTRALINE) 06/10/2016 8 - GI Upset Date Reviewed: 02/29/2020 Reviewed by: Kota (Dylan.Tour Production Supervisor) JOSEE Barba - Fully Assesse d Reason for Visit: Results [95] Primary Visit Diagnosis:Proteinuria, unspecified type [R80.9 ] Order(s):URINALYSIS, WITH MICROSCOPIC [SQUAWMIC] Order #: [id number] FUTURE Prescriptions as of 03/13/2020 Sig: HYDROCHLOROTHIAZIDE 12.5 MG C* Take 1 capsule by mouth once * LISINOPRIL 10 MG TABLET Take 1 tablet by mouth once d* ATENOLOL 50 MG TABLET Take 1 tablet by mouth once d* Patient not taking: Reported on 02/29/2020 ATORVASTATIN 80 MG TABLET Take 1 tablet by mouth once d* Patient not taking: Reported on 02/29/2020 Problem List As Of Date 03/13/2020 Noted Resolved Left-sided low back pain without sciatica [M54.*07/03/2011 Essential hypertension with goal blood pressure*06/28/2014 Palpitations [R00.2] 06/28/2014 More... Mixed hyperlipidemia [E78.2] 06/28/2014 Well adult exam [Z00.00] 06/28/2014 More... Neurofibroma [D36.10] 08/13/2014 More... Family history of malignant neoplasm of gastroi*09/28/2014 0 09/28/2014 Agoraphobia [F40.00] 01/24/2015 Situational anxiety [F41.8] 01/24/2015 Fatty liver [K76.0] 03/28/2016 Elevated LFTs [R79.89] 03/28/2016 Chronic bilateral low back pain without sciatic*06/10/2016 Prostate cancer screening [Z12.5] 07/10/2016 Smoker [F17.200] 07/10/2016 More... Alcohol use [Z72.89] 07/10/2016 More... Encounter Status:Closed by ELLE SALAZAR CMA on 03/13/20 NUSRAT Telephone (FAMPWS) Normal 03-13-2020 [facility] JASON MOORE ([id number]) 1970 [facility] Date Time Provider Department ([id number]) 03/13/20 NOPCP (HISTORICAL) FAMPWS During your visit today, we recorded the following informati on about you: Viktoria Parrish LPN, CINTHIA 03/13/2020 11:17 AM Signed ----- Message from Kota Reed) JOSEE Barba t at 03/13/2020 9:09 AM EDT ----- Please inform the patient: Lab results show: Slight elevatio n in his liver enzymes but they are improved compared to his last rosa er enzyme check. lipid profile has improved compared to last lab draw and lipid pro file. Continue with therapeutic lifestyle changes. Adhere to a low-cholesterol, low-fat diet. Pleas e ensure that they are eating lots of fruits and vegetables, eat lean cuts of meat, and limit surgry drinks. Perform regular physical act ivity and limit fast food. Recheck cholesterol/labs in 12 months. The rest of his lab work was unremarkabl e. He has the diagnosis of fatty liver so at this point there is no indication to repeat a right up per quadrant ultrasound. YOLI Islas LPN, CINTHIA 03/13/2020 11:19 AM Signed Message sent via my chart. Allergies As of Date: 03/13/2020 Noted Allergy Reaction ATIVAN (LORAZEPAM) 06/10/2016 8 - GI Upset PAXIL (PAROXETINE HCL) 12/25/2015 8 - GI Upset Comments: diarrhea ZOLOFT (SERTRALINE) 06/10/2016 8 - GI Upset Date Reviewed: 02/29/2020 Reviewed by: Kota (Yoli) JOSEE Barba - Fully Assesse d Reason for Visit: Results [95] Prescriptions as of 03/13/2020 Sig: HYDROCHLOROTHIAZIDE 12.5 MG C* Take 1 capsule by mouth once * LISINOPRIL 10 MG TABLET Take 1 tablet by mouth once d* ATENOLOL 50 MG TABLET Take 1 tablet by mouth once d* Patient not taking: Reported on 02/29/2020 ATORVASTATIN 80 MG TABLET Take 1 tablet by mouth once d* Patient not taking: Reported on 02/29/2020 Problem List As Of Date 03/13/2020 Noted Resolved Left-sided low back pain without sciatica [M54.*07/03/2011 Essential hypertension with goal blood pressure*06/28/2014 Palpitations [R00.2] 06/28/2014 More... Mixed hyperlipidemia [E78.2] 06/28/2014 Well adult exam [Z00.00] 06/28/2014 More... Neurofibroma [D36.10] 08/13/2014 More... Family history of malignant neoplasm of gastroi*09/28/2014 0 09/28/2014 Agoraphobia [F40.00] 01/24/2015 Situational anxiety [F41.8] 01/24/2015 Fatty liver [K76.0] 03/28/2016 Elevated LFTs [R79.89] 03/28/2016 Chronic bilateral low back pain without sciatic*06/10/2016 Prostate cancer screening [Z12.5] 07/10/2016 Smoker [F17.200] 07/10/2016 More... Alcohol use [Z72.89] 07/10/2016 More... Encounter Status:Closed by VIKTORIA PARRISH LPN on 03/13/20 urinalysis with microscopic on 2020-03-12 Bilirubin, Urine Negative Negative Normal 03-12-2020 [facility] ([id number]) Comment: Performed By: #### UAWMIC ## ##[facility] [place], [place] [phone] Clarity (U) Clear Clear Normal 03-12-2020 [facility] ([id number]) Comment: Performed By: #### UAWMIC ## ##[facility] [id number] [facility] [phone]- [phone] Color (U) Yellow Yellow Normal 03-12-2020 [facility] ([id number]) Comment: Performed By: #### UAWMIC ## ##[place] [address] [address], [place] [id number]- [phone] Comments SEE COMMENT Normal 03-12-2020 [facility] (28003) Comment: Result Comment: N/A Performed By: #### UAWMIC ## ##[place] [address], [place] [phone]- [phone] Glucose Ql (U) Negative Negative Normal 03-12-2020 [facility] (89243) Comment: Performed By: #### UAWMIC ## ##[place] [address] [place], [place] [phone]- [phone] Hemoglobin/Blood,Ur Negative Negative Normal 03-12-2020 [facility] (96870) Comment: Performed By: #### UAWMIC ## ##[place] [address], [place] [phone]- [phone] Ketones Ql (U) Negative Negative Normal 03-12-2020 [facility] ([id number]) Comment: Performed By: #### UAWMIC ## ##[place] [address], [place] [phone]- [phone] Leukest Negative Negative Normal 03-12-2020 [facility] (54355) Comment: Performed By: #### UAWMIC ## ##[place] [address], [place] [phone] Nitrite Ql (U) Negative Negative Normal 03-12-2020 [facility] ([id number]) Comment: Performed By: #### UAWMIC ## ##[place] [address], [place] [phone]- [phone] pH (Bld) 6.0 5.0-8.0 Normal 03-12-2020 [facility] (40353) Comment: Performed By: #### UAWMIC ## ##[facility], [place] [phone] Protein (U) 2+ Negative Critically abnormal 03-12-20 20 [facility] [Mass/Vol] [place] ([address]) Comment: Performed By: #### UAWMIC ## ##[facility], [place] [phone] RBC (U) [#/Vol] 0-3 0-3 Normal 03-12-2020 [facility] (77875) Comment: Performed By: #### UAWMIC ## ##[place] [address], [place] [phone] Specific [place], Ur 1.023 1.005-1.030 Normal 020 [facility] (28501) Comment: Performed By: #### UAWMIC ## ##[place] [address], [place] [phone] Urine Andi Comment SEE COMMENT Normal 03-12-2020 [facility] (48891) Comment: Result Comment: N/A Performed By: #### UAWMIC ## ##[place] [address] [address], [place] [phone] Urobilinogen Qn (U) 1+ Negative E.U./dL Critically 0 [facility] (60183) Comment: Performed By: #### UAWMIC ## ##[place] [id number], [place] [phone] WBC (Bld) [#/Vol] 0-5 0-5 Normal 03-12-2020 [facility] (68076) Comment: Performed By: #### UAWMIC ## ##[facility], [place] [phone]- [phone] lipid panel, basic on 2020-03-12 Cholesterol [Mass/Vol] 265 <200 mg/dL High 020 [facility] (34463) Comment: Result Comment: <200 mg/dL, Desirable 200-239 mg/dL, Borderline hi gh >239 mg/dL, High Performed By: #### HIV12C, C BCDIF, CMP, LIPB, HBA1C ####[facility] [place], [place] [phone] Cholesterol in HDL 53 >39 mg/dL Normal 03-12-2020 [facility] [Mass/Vol] (43496) Comment: Result Comment: 40-59 mg/dL, Acceptable >59 mg/dL, High: Negative ri sk factor for coronary heart disease <40 mg/dL, Low: Positive ris k factor for coronary heart disease Performed By: #### HIV12C, C BCDIF, CMP, LIPB, HBA1C ####[facility] [place], [place] [phone] Cholesterol in LDL 172 <100 mg/dL High 03-12-2020 [facility] [Mass/Vol] (66134) Comment: Result Comment: <100 mg/dL, Optimal 100-129 mg/dL, Near optimal/ above optimal 130-159 mg/dL, Borderline hi gh 160-189 mg/dL, High >189 mg/dL, Very high Secondary prevention optimal LDL Cholesterol levels are recommended to be < 70 mg/dL Performed By: #### HIV12C, C BCDIF, CMP, LIPB, HBA1C ####[facility] [address] [place], [place] [phone] Fasting Time 12 hrs Normal 03-12-2020 [facility] (28254) Comment: Performed By: #### HIV12C, C BCDIF, CMP, LIPB, HBA1C ####[facility] [place], [place] [phone] LDL:HDL Ratio 3.25 <2.54 High 03-12-2020 [facility] [place] [facility] (39378) Comment: Result Comment: Reference: 1. National Cholesterol Educ ation Program ATP III Guideline At-A-Glance Quick Desk Reference: National Heart, Lung, and Blood [place]. National Institutes of Health. 2001: NIH Publication No. 01-3305. 2. An International Atherosc lerosis Society position paper: global recommendations for the management of dyslipidemia: executive summary, Atherosclerosis. 2014: 232(2):410-413. Performed By: #### HIV12C, C BCDIF, CMP, LIPB, HBA1C ####[facility] [place] [phone] Non HDL Cholesterol 212 <130 mg/dL High 03-12-2020 [facility] (23167) Comment: Result Comment: <130 mg/dL, Optimal 130-159 mg/dL, Near optimal/ above optimal 160-189 mg/dL, Borderline hi gh 190-219 mg/dL, High >219 mg/dL, Very high Secondary prevention optimal non HDL Cholesterol levels are recommended to be < 100 mg/dL Performed By: #### HIV12C, C BCDIF, CMP, LIPB, HBA1C ####[facility] [place] [phone] TC:HDL Ratio 5.00 <5.10 Normal 03-12-2020 [facility] ([id number]) Comment: Performed By: #### HIV12C, C BCDIF, CMP, LIPB, HBA1C ####[facility] [place] [phone] Triglyceride [Mass/Vol] 198 <150 mg/dL High 2019 [facility] ([id number]) Comment: Result Comment: <150 mg/dL, Normal 150-199 mg/dL, Borderline hi gh 200-499 mg/dL, High >499 mg/dL, Very high Performed By: #### HIV12C, C BCDIF, CMP, LIPB, HBA1C ####[facility] [address] [place] [phone] VLDL Cholesterol 40 <30 mg/dL High 03-12-2020 [facility] (72907) Comment: Performed By: #### HIV12C, C BCDIF, CMP, LIPB, HBA1C ####[facility] [place] [phone] [id number] ag +[id number] ab on 2020-03-12 HIV 12 Ag/Ab Non Reactive Non Reactive Normal 03-12-2020 [facility] ([id number]) Comment: Performed By: #### HIV12C, C BCDIF, CMP, LIPB, HBA1C ####[place] [address] [place], [place] [phone] HIV-1/2 Antibody Normal 03-12-2020 [facility] (37694) Comment: Result Comment: Test Not Ind icated Negative No evidence of HIV-1 or HIV- 2 infection. Should recent infection be suspected, repeat testing may be considered 2-3 weeks after this draw. HIV Information: [place] Rev. C ode 3701.243(E): This information has been di sclosed to you from confidential records protected from disclosure by state law. You shall make no further disclosure of this information without the specific, written, and i nformed release of the indiv idual to whom it pertains or as otherwise permitted by state law. A general authorization for the release of medical or other information is not sufficient for the purpose of the release of HIV test results or diagnoses. Performed By: #### HIV12C, C BCDIF, CMP, LIPB, HBA1C ####[place] [address] [place], [place] [phone] hemoglobin a1c on 2 HbA1c (Bld) [Mass fraction] 5.4 4.3-5.6 % Normal [facility] (49905) Comment: Result Comment: [place] Jeremiah betes Association guidelines indicate that patients with HgbA1c in the range 5.7-6.4% are at increased risk for development of diabetes, and intervention by lifestyle modification may be beneficial. HgbA1c greater o r equal to 6.5% is considered diagnostic of diabetes. Performed By: #### HIV12C, C BCDIF, CMP, LIPB, HBA1C ####[facility], [place] [phone] HbA1c (Bld) [Mass fraction] 108 mg/dL Normal [facility] ([id number]) Comment: Result Comment: eAG: (Estima alexandrea average glucose) is a calculated value from HgbA1c and is district representative of the average blood glucose level in the last 2-3 month period. Performed By: #### HIV12C, C BCDIF, CMP, LIPB, HBA1C ####[place] [address] [place], [place] [phone] comp metabolic panel on 2020-03-12 Albumin [Mass/Vol] 4.4 3.9-4.9 g/dL Normal 03-12-2020 [facility] (74482) Comment: Performed By: #### HIV12C, C BCDIF, CMP, LIPB, HBA1C ####[place] [address] [place], [place] [phone] ALP [Catalytic activity/Vol] 73 38-113 U/L Normal 0 03-12-2020 [facility] (96297) Comment: Performed By: #### HIV12C, C BCDIF, CMP, LIPB, HBA1C ####[place] [address] [place] [phone] ALT [Catalytic activity/Vol] 59 10-54 U/L High 0 03-12-2020 [facility] (82057) Comment: Performed By: #### HIV12C, C BCDIF, CMP, LIPB, HBA1C ####[place] [address] [place], [place] [phone] Anion gap [Moles/Vol] 12 9-18 mmol/L Normal 03-12-20 [facility] (69697) Comment: Performed By: #### HIV12C, C BCDIF, CMP, LIPB, HBA1C ####[place] [address] [place], [place] [phone] AST [Catalytic activity/Vol] 49 14-40 U/L High 0 03-12-2020 [facility] (02735) Comment: Performed By: #### HIV12C, C BCDIF, CMP, LIPB, HBA1C ####[facility] [place], [place] [phone] Bilirubin [Mass/Vol] 1.0 0.2-1.3 mg/dL Normal 0 [facility] (59550) Comment: Performed By: #### HIV12C, C BCDIF, CMP, LIPB, HBA1C ####[place] [address] [place] [phone] Calcium [Mass/Vol] 9.7 8.5-10.2 mg/dL Normal 03-12-2020 [facility] (45936) Comment: Performed By: #### HIV12C, C BCDIF, CMP, LIPB, HBA1C ####[place] [address] [place] [phone] Chloride [Moles/Vol] 102 97-105 mmol/L Normal 0 [facility] (71094) Comment: Performed By: #### HIV12C, C BCDIF, CMP, LIPB, HBA1C ####[place] [address] [place], [place] [phone] CO2 [Moles/Vol] 24 22-30 mmol/L Normal 03-12-2020 [facility] (16272) Comment: Performed By: #### HIV12C, C BCDIF, CMP, LIPB, HBA1C ####[place] [address] [place] [phone] Creatinine [Mass/Vol] 1.09 0.73-1.22 mg/dL Normal 03-12-20 20 [facility] (02102) Comment: Performed By: #### HIV12C, C BCDIF, CMP, LIPB, HBA1C ####[place] [address] [place], [place] [phone] eGFR- Amer. >60 Normal 03-12-2020 [facility] (82131) Comment: Performed By: #### HIV12C, C BCDIF, CMP, LIPB, HBA1C ####[facility] [address] [place], [place] [phone] GFR/1.73 sq M predicted >60 mL/min/{1.73_m2} Normal 03-12-2020 [facility] among non-blacks MDRD [place] (67766) (S/P/Bld) [Vol rate/Area] Comment: Result Comment: eGFR (Estima alexandrea GFR) Units of measure: mL/min/1.73 meters squared eGFR is derived from the ree xpressed MDRD Study equation using the following parameters: serum creatinine, age, gender and race. The creatinine assay has been calibrated to be traceable to IDMS. An eGFR <60 mL/min/1.73m2 fo r >3 months is consistent with chronic kidney disease. Refer to KDOQI guidelines for clinical interpretation. In patients with unstable re nal function, e.g. those with acute kidney injury, the eGFR may not accurately reflect actual GFR. Performed By: #### HIV12C, C BCDIF, CMP, LIPB, HBA1C ####[facility] [address] [place], [place] [phone] Glucose [Mass/Vol] 99 74-99 mg/dL Normal 03-12-2020 [facility] (68339) Comment: Result Comment: The [place] Diabetes Association (ADA) provides guidance for cutoff values for fasting glucose and random glucose. The ADA defines fasting as no caloric intake for at least 8 hours. Fas ting plasma glucose results between 100 to 125 mg/dL indicate increased risk for diabetes (prediabetes). Fasting plasma glucose resul ts greater than or equal to 126 mg/dL meet the criteria for diagnosis of diabetes. In the absence of unequivocal hyperglycemia, results should be confirmed by repeat testing. In a patient with classic s ymptoms of hyperglycemia or hyperglycemic crisis, random plasma glucose results greater than or equal to 200 mg/dL meet the criteria for diagnosis of diabetes. Reference: Standards of [facility] Care in Diabetes 2016, [place] Diabetes Association. Diabetes Care. 2016.39(Suppl 1). Performed By: #### HIV12C, C BCDIF, CMP, LIPB, HBA1C ####[facility] [address], [place] [phone] Potassium [Moles/Vol] 3.7 3.7-5.1 mmol/L Normal 03-12-20 [facility] (50037) Comment: Performed By: #### HIV12C, C BCDIF, CMP, LIPB, HBA1C ####[facility] [place], [place] [phone] Protein [Mass/Vol] 7.1 6.3-8.0 g/dL Normal 03-12-2020 [facility] (20531) Comment: Performed By: #### HIV12C, C BCDIF, CMP, LIPB, HBA1C ####[facility] [place] [phone] Sodium [Moles/Vol] 138 136-144 mmol/L Normal 03-12-2020 [facility] (74159) Comment: Performed By: #### HIV12C, C BCDIF, CMP, LIPB, HBA1C ####[facility] [place] [phone] Urea nitrogen [Mass/Vol] 9 9-24 mg/dL Normal 03-12 [facility] (29115) Comment: Performed By: #### HIV12C, C BCDIF, CMP, LIPB, HBA1C ####[place] [address] [place] [phone] cbc and differential on 2020-03-12 Abs Baso 0.05 <0.11 k/uL Normal 03-12-2020 [facility] (17284) Comment: Performed By: #### HIV12C, C BCDIF, CMP, LIPB, HBA1C ####[facility] [place] [phone] Abs Plumas 0.51 <0.87 k/uL Normal 03-12-2020 [facility] (87487) Comment: Performed By: #### HIV12C, C BCDIF, CMP, LIPB, HBA1C ####[facility] [place], [place] [phone] Abs Neut 4.11 1.45-7.50 k/uL Normal 03-12-2020 [facility] (95565) Comment: Performed By: #### HIV12C, C BCDIF, CMP, LIPB, HBA1C ####[facility] [place], [place] [phone] Absolute nRBC <0.01 <0.01 Normal 03-12-2020 [facility] [place] [facility] (25251) Comment: Performed By: #### HIV12C, C BCDIF, CMP, LIPB, HBA1C ####[facility] [place], [place] [phone] Basophils/100 WBC (Bld) 0.8 % Normal 2019 [facility] (65998) Comment: Performed By: #### HIV12C, C BCDIF, CMP, LIPB, HBA1C ####[facility] [place], [place] [phone] DTYPE Auto Diff Normal 03-12-2020 [facility] (23653) Comment: Performed By: #### HIV12C, C BCDIF, CMP, LIPB, HBA1C ####[facility] [place], [place] [phone] Eosinophils (Bld) [#/Vol] 0.05 <0.46 k/uL Normal 02-27 [facility] (94822) Comment: Performed By: #### HIV12C, C BCDIF, CMP, LIPB, HBA1C ####[facility] [place], [place] [phone] Eosinophils/100 WBC (Bld) 0.8 % Normal 02-27 [facility] (04277) Comment: Performed By: #### HIV12C, C BCDIF, CMP, LIPB, HBA1C ####[facility] [place], [place] [phone] Erythrocyte distribution 11.6 11.5-15.0 % Normal 03-12 [facility] width (RBC) [Ratio] [place] (32164) Comment: Performed By: #### HIV12C, C BCDIF, CMP, LIPB, HBA1C ####[facility] [address] [place], [place] [phone] Hematocrit (Bld) [Volume 45.4 39.0-51.0 % Normal 03-12 [facility] fraction] [place] (95816) Comment: Performed By: #### HIV12C, C BCDIF, CMP, LIPB, HBA1C ####[facility] [place] [phone] Hemoglobin (Bld) 15.6 13.0-17.0 g/dL Normal 03-12-2020 [facility] [place] [facility] [Mass/Vol] [place] (88866) Comment: Performed By: #### HIV12C, C BCDIF, CMP, LIPB, HBA1C ####[facility] [address] [place] [phone] Lymphocytes (Bld) [#/Vol] 1.61 1.00-4.00 k/uL Normal 02-27 [facility] (17504) Comment: Performed By: #### HIV12C, C BCDIF, CMP, LIPB, HBA1C ####[facility] [address] [place] [phone] Lymphocytes/100 WBC (Bld) 25.4 % Normal 02-27 [facility] (19422) Comment: Performed By: #### HIV12C, C BCDIF, CMP, LIPB, HBA1C ####[facility] [address] [place], [place] [phone] MCH (RBC) [Entitic mass] 33.2 26.0-34.0 pG Normal 03-12 [facility] (05519) Comment: Performed By: #### HIV12C, C BCDIF, CMP, LIPB, HBA1C ####[facility] [place], [place] [phone] MCHC (RBC) [Mass/Vol] 34.4 30.5-36.0 g/dL Normal 03-12-20 [facility] (25250) Comment: Performed By: #### HIV12C, C BCDIF, CMP, LIPB, HBA1C ####[facility] [place], [place] [phone] MCV (RBC) [Entitic vol] 96.6 80.0-100.0 fL Normal 03-12 [facility] (85769) Comment: Performed By: #### HIV12C, C BCDIF, CMP, LIPB, HBA1C ####[place] [address] [place], [place] [phone] Monocytes/100 WBC (Bld) 8.1 % Normal 2019 [facility] (79547) Comment: Performed By: #### HIV12C, C BCDIF, CMP, LIPB, HBA1C ####[facility] [place], [place] [phone] Neutrophils/100 WBC (Bld) 64.9 % Normal 02-27 [facility] (66590) Comment: Performed By: #### HIV12C, C BCDIF, CMP, LIPB, HBA1C ####[facility] [place], [place] [phone] NRBCs 0.0 0 /100 WBC Normal 03-12-2020 [facility] (39565) Comment: Performed By: #### HIV12C, C BCDIF, CMP, LIPB, HBA1C ####[facility] [place], [place] [phone] Platelet mean volume 12.1 9.0-12.7 fL Normal 0 [facility] (Bld) [Entitic vol] [place] (47110) Comment: Performed By: #### HIV12C, C BCDIF, CMP, LIPB, HBA1C ####[facility] [address] [place], [place] [phone] Platelets (Bld) [#/Vol] 184 150-400 k/uL Normal 2019 [facility] (65634) Comment: Performed By: #### HIV12C, C BCDIF, CMP, LIPB, HBA1C ####[facility] [address] [place], [place] [phone] RBC (Bld) [#/Vol] 4.70 4.20-6.00 m/uL Normal 03-12-2020 [facility] (12529) Comment: Performed By: #### HIV12C, C BCDIF, CMP, LIPB, HBA1C ####[facility] [address] [place], [place] [phone] WBC (Bld) [#/Vol] 6.33 3.70-11.00 k/uL Normal 03-12-2020 [facility] (63987) Comment: Performed By: #### HIV12C, C BCDIF, CMP, LIPB, HBA1C ####[facility] [address] [place], [place] [phone] progress on 2020-02 PROGRESS HNO ID: [id number] Normal 02-29-2020 [facility] Author: Kota (Dylan.Kai Barba APRN.[facility] ([id number]) Service: ? Author Type: Nurse Practitioner Type: Progress Notes Filed: 02/29/2020 5:02 PM Note Text: Chief Complaint Patient presents with: Physical HPI Jason Moore is a 49 year old male who presents here today f or a established physical exam. Presents to the [facility] as an established patient of Dr. Hammond, this is a new patient to me. No recent urgent care visits, ER visits, or hospitalizations. Has a past medical history of high blood pressure, high chol esterol and impaired fasting glucose. Additionally has a history of obes ity, tobacco use and alcohol use. Has been noncompliant with his blood pr essure and cholesterol medications. Has not taken them for several year s. Denies headaches, lightheadedness or dizziness. No chest ottoniel n, difficulty breathing or shortness of breath. No chronic pain or chronic muscle or joint pain. No history of chronic constipation or diarrhea. Last colonoscopy was 08/2014 and patient was advised to have a repeat colonoscopy in 5 years due to family history, but denies any abdominal pain, nausea/vomiting, weight loss, or blood in stools. Complains of acute left shoulder pain x2 weeks. Denies any r ecent injury, pain is described as sharp and worse with movement. No recen t injury or trauma to the left shoulder or arm. 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 He has been using Motrin for his back pain but has not noticed any improvement for his shoulder. Past medical history, appointments, medications, allergies r eviewed 02/29/2020 Previous Medical History PAST MEDICAL HISTORY Diagnosis Date - Back pain - Hypertension Previous Surgical History PAST SURGICAL HISTORY Procedure Laterality Date - APPL-INTERVERTEBRAL BIOMECHANICAL DEVICES - COLONOSCOP W/ OR W/O BRSH SPEC 09/28/14 Colonoscopy, repeat 5 yrs - INSERT VERT FIX DEV,ANT,3 SGMTS - PAST SURGICAL HISTORY OF back injections and disc biopsy - SPIN BONE ALLOGRFT STRUCTURAL 2012 FUSION AND REPLACED DISC Family History FAMILY HISTORY Problem Relation Age of Onset - Colon Cancer Father 50 - Diabetes Father - Hypertension Father - Prostate Cancer Father 54 - Colon Cancer Paternal Grandfather - Diabetes Paternal Grandfather - Prostate Cancer Paternal Grandfather 50'S - Colon Cancer Paternal Uncle LATE 50'S - Coronary Artery Disease Maternal Aunt - Diabetes Paternal Uncle - Diabetes Paternal Aunt - Hypertension Paternal Grandmother - Hypertension Paternal Aunt - Hypertension Paternal Uncle - Hypertension Maternal Aunt - Hypertension Maternal Aunt - Prostate Cancer Paternal Uncle 50'S Patient Allergies ALLERGIES Allergen Reactions - Ativan [Lorazepam] GI Upset - Paxil [Paroxetine H* GI Upset diarrhea - Zoloft [Sertraline] GI Upset Current Medications Current Outpatient Medications on File Prior to Visit Medication Sig - hydroCHLOROthiazide (HYDRODIURIL, ESIDRIX) 25 mg tablet Ta ke 1 tablet by mouth once daily. (Patient not taking: Reported on 02/29/2020 ) - atenolol (TENORMIN) 50 mg tablet Take 1 tablet by mouth on ce daily. (Patient not taking: Reported on 02/29/2020 ) - lisinopril (ZESTRIL, PRINIVIL) 20 mg tablet Take 1 tablet by mouth once daily. (Patient not taking: Reported on 02/29/2020 ) - atorvastatin (LIPITOR) 80 mg tablet Take 1 tablet by mouth once daily. (Patient not taking: Reported on 02/29/2020 ) No current facility-administered medications on file prior t o visit. Social History Social History Tobacco Use - Smoking status: Current Every Day Smoker Packs/day: 0.50 Years: 21.00 Pack years: 10.50 - Smokeless tobacco: Never Used Substance Use Topics - Alcohol use: Yes Comment: moderate amount of alcohol - Drug use: Not on file Review of Symptoms PAIN ASSESSMENT: CURRENTLY HAVING PAIN in the left shoulder with movement GENERAL: No unintentional weight loss, malaise or fevers. No night sweats HEENT: Negative for frequent or significant headaches No significant change in vision. No blurry vision, double vi ruben, or vision loss. No nasal discharge No sore throat, difficulty swallowing, mouth lesions or hoar seness No hearing loss. NECK: Negative for lumps, pain and significant neck swelling RESPIRATORY: Negative for cough or hemoptysis. No wheezing, dyspnea or shortness of breath CARDIOVASCULAR: Negative for chest pain, leg swelling, or pa lpitations GI: No nausea, vomiting, or diarrhea. No blood in stool MUSCULOSKELETAL: + left shoulder pain, negative for generali zed joint pain, swelling, back pain or muscle aches SKIN: Negative for lesions, rash, and itching EXAM: BP 156/100 (BP Site: Right Arm, BP Position: Sitting, BP Cuf f Size: Large Adult) Pulse 95 Temp 37.1 ?C (98.7 ?F) (Right Tympanic) Resp 16 Wt 110.7 kg (244 lb) SpO2 97% BMI 35.52 kg/m? General Appearance: Well appearing, alert, in no acute distr ess, well-hydrated, well nourished.. Skin: Skin color, texture, turgor normal, no suspicious rash es or lesions. Head: Normocephalic, no masses Eyes: Anicteric sclera. Pupils are equally round and reactiv e to light. Ears: External ears normal, canals clear, TM's clear with ad equate light reflex. Nose/Sinuses: Nares normal, septum midline, mucosa normal, n o drainage or sinus tenderness. Oropharynx: Lips, mucosa, and tongue normal, teeth and gums normal, oropharynx nonreddened. Neck: Supple, no adenopathy; thyroid symmetric, normal size Lymph Nodes: No cervical lymphadenopathy, No supraclavicular lymphadenopathy Lungs: Lungs clear to auscultation. No wheezing, rhonchi, ra les. Heart: RRR without murmur, gallop, or rubs. No ectopy. Eboni l S1 and S2. Abdomen: Abdomen soft, non-tender. Bowel sounds normal. No m asses, organomegaly. No epigastric tenderness. No upper quadrant ab dominal tenderness. No lower quadrant abdominal tenderness. No rebou nd tenderness. Extremities: No deformities, edema, skin discolo ration, clubbing or cyanosis. MSK: FROM of upper and lower extremities. No joint swelling or redness. Shoulder Exam (Bilateral) Inspection/Palpation UE (R/L): Non-tender bilaterally. No ma sses, swelling or bruise. No deformity noted. External Rotation and Internal Rotation motion: No pain FROM bilaterally Shoulder Tests: Cross Arm (L): neg Morgan Test (L): neg Neer Impingement Test (L): Pos Empty Can (L): neg Speeds (L): neg Lift Off Test (L): Pos Apprehension (L): neg Strength: Full on the Right and Left Abduction (R/L): 5/5 / 5/5 ER(R/L): 5/5 / 5/5 IR (R/L): 5/5 / 5/5 Biceps (R/L):5/5 / 5/5 Triceps (R/L):5/5 / 5/5 Sensation: Grossly intact bilaterally UE Skin (R/L): No rashes or lesions. C-spine Flexion: 45 C-spine Extension: 45 C-spine Right Rotation: 70 C-spine Left Rotation: 70 C-Spine Tenderness: non-tender Psych: Attitude - cooperative, easily engaged in conversatio n Appearance - normal, hygiene and grooming appropriate Affect - euthymic (normal mood), Mental status: Alert, attentive. Speech is clear and fluent with good repetition, comprehension Coordination: There are no abnormal or extraneous movements, reflexes 2+ at patella and achilles. Gait/Stance: Posture is normal. Gait is steady with normal s teps Health Maintenance List ANNUAL PCP TEAM CHRONIC DISEASE VISIT due on 1990 HIV SCREENING due on 1990 BP CONTROLLED (<130/80) due on 1990 ONE PNEUMOVAX PRIOR TO AGE 67 due on 11/19/1991 COLORECTAL CANCER SCREENING,SEE MODIFIER due on 09/28/2019 DIABETES SCREEN due on 11/14/2019 INFLUENZA(1) due on 04/30/2020 LIPID SCREEN due on 11/13/2021 DTAP,TDAP,TD(2 - Td) due on 06/28/2024 HEPATITIS C SCREENING Completed Data reviewed Last 5 Encounter BP Readings: Date: BP: 02/29/2020 156/100 11/22/2017 150/98 11/13/2016 132/90 07/10/2016 120/70 06/10/2016 142/94 BMI Readings from Last 5 Encounters: 02/29/20 : 35.52 kg/m? 11/22/17 : 40.32 kg/m? 11/13/16 : 36.39 kg/m? 07/10/16 : 35.26 kg/m? 06/10/16 : 35.74 kg/m? Last 5 Encounter Wt Readings: Date: Wt: 02/29/2020 110.7 kg (244 lb) 11/22/2017 125.6 kg (277 lb) 11/13/2016 113.4 kg (250 lb) 07/10/2016 110.7 kg (244 lb) 06/10/2016 109.8 kg (242 lb) Medication and allergy list reviewed, reconciled and updated 02/29/2020 [facility] Gastrointestinal Endoscopy Patient Name: Jason Moore Procedure Date: 09/28/2014 2:47 PM Date of : 1970 Admit Type: Ambulatory Age: 43 Gender: Male Note Status: Finalized Procedure: ? Colonoscopy Indications: ? FH of Colon Cancer - 1st degree relativ e Providers: ? Gerald Hillman MD Findings: ?? ? The colon (entire examined portion) appeared normal. Impression: ?- The entire examined colon is normal. Recommendation: ? ? ?- Discharge patient to home (ambulatory ). ? - Regular diet. ? - Continue present medications. ? - Return to primary care physician PRN. ? - Repeat colonoscopy in 5 years for scr eening purposes. ? - Refer to hereditary colon cancer prog chaz (Dr Woods) ? [facility]. ? - Patient has a contact number availabl e for ? emergencies. The signs and symptoms of potential delayed ? complications were discussed with the p atient. Return to ? normal activities tomorrow. Written dis charge ? instructions were provided to the patie nt. Attending Participation: ?? ? I personally performed the entire procedure. MD Gerald Gomez MD 09/28/2014 3:32 PM This report has been signed electronically by Gerald Hillman MD Number of Addenda: 0 Note Initiated On: 09/28/2014 2:47 PM Procedure Start: 3:12:24 PM Procedure End: 3:26:01 PM Component Latest Ref Rng AND Units 07/02/2017 11/22/2017 Glucose 74 - 106 mg/dL 113 (H) BUN 9 - 20 mg/dL 12 Sodium 137 - 145 mmol/L 137 Potassium 3.5 - 5.1 mmol/L 3.7 Chloride 98 - 107 mmol/L 100 CO2 22 - 30 mmol/L 25 Anion Gap 0 - 15 16 (H) Amylase 30 - 110 U/L 69 AST 17 - 59 U/L 54 ALT 21 - 72 U/L 71 Alkaline Phosphatase 38 - 125 U/L 67 GGT 15 - 73 U/L 199 (H) Bilirubin, Total 0.2 - 1.3 mg/dL 1.6 (H) Calcium 8.4 - 10.2 mg/dL 10.0 Phosphorus 2.5 - 4.5 mg/dL 2.9 Uric Acid 3.5 - 8.5 mg/dL 7.0 Cholesterol, Total 100 - 199 mg/dL 308 (H) Triglyceride 35 - 150 mg/dL 253 (H) Protein, Total 6.2 - 8.2 g/dL 7.9 Albumin 3.5 - 5.0 g/dL 4.5 LD 318 - 618 U/L 515 Creatinine 0.66 - 1.25 mg/dL 1.14 eGFR-All Other Races >60 mL/min/1.73 2 >60 eGFR- >60 mL/min/1.73 2 >60 WBC 4.5 - 11.0 k/uL 9.41 RBC 4.50 - 5.90 m/uL 4.71 Hemoglobin 13.5 - 17.5 g/dL 15.5 Hematocrit 41.0 - 53.0 % 45.1 MCV 80 - 100 fL 95.8 MCH 26 - 34 pG 32.9 MCHC 31 - 37 g/dL 34.4 RDW-CV 11.5 - 14.5 % 11.9 Platelet Count 150 - 450 k/uL 220 NRBC 0 - 0.9 /100 WBC 0 Neut% 40 - 70 % 67.3 Abs Neut (ANC) 1.8 - 7.7 k/uL 6.33 Lymph% 22 - 44 % 24.2 Abs Lymph 1.0 - 4.0 k/uL 2.28 Plumas% 4 - 12 % 6.6 Abs Plumas 0 - 0.8 k/uL 0.62 Eosin% 0 - 4 % 1.1 Abs Eosin 0 - 0.4 k/uL 0.10 Baso% 0 - 1 % 0.4 Abs Baso 0 - 0.2 k/uL 0.04 Immature Gran 0 - 1.9 % 0.40 Color Yellow Yellow Clarity Clear Clear Specific Buchanan, Ur 1.005 - 1.030 1.012 1.020 pH, Urine 4.5 - 8.0 6.0 6.0 Protein, Urine Neg mg/dL Negative Negative Glucose, Urine Neg mg/dL Negative Negative Ketones, Urine Neg Negative Negative Bilirubin, Urine Neg Negative Negative Hemoglobin/Blood,Ur Neg Negative Negative Nitrites Neg Negative Negative Urobilinogen 0.0 - 1.0 mg/dl <2.0 Leukest Negative Negative Comment MICROSCOPIC ANALYSIS NOT DONE ON URINES WITH NEGATIV E BIOCHEMICAL TESTS Urobilinogen, Urine Normal (<1.1) EU Normal Leukocytes Neg Negative Color/Appearance comment: Yellow/Clear Quality Check yes/no Yes GC/Chlam Amp Source Urine GC Amplification Negative for Neisseria gonorrhoeae by ampli fication. Chlamydia Amplification Negative for Chlamydia trachomatis b y amplification. PT Sec 11.8 - 14.1 sec 12.8 PT INR 0.6 - 1.1 1.0 RPR Nonreactive Nonreactive GB TSH 0.465 - 4.680 uU/mL 5.060 (H) Magnesium 1.3 - 2.3 mg/dL 1.8 Medication and allergy list reviewed, reconciled and updated 02/29/2020 ASSESSMENT/PLAN: 1. Well adult exam - ICD9: V70.0, ICD10: Z00.00 (primary jeremiah gnosis) - Check CBC with diff, CMP, HbA1C, fasting lipid panel, chol esterol, HDL and urinalysis - COMP METABOLIC PANEL - HGB A1C - URINALYSIS, WITH MICROSCOPIC - CBC + DIFF - LIPID PANEL BASIC - HIV 1 2 COMBO(AG/AB),WITH REFLEX TO DIFFERENTIATION 2. Essential hypertension with goal blood pressure less than 140/90 - ICD9: 401.9, ICD10: I10 - poor control - noncompliance - Begin HCTZ 12.5 mg PO daily, lisinopril (Zestril/Prinivil) 10 mg PO daily - Recommend home blood pressure monitoring, to bring results in on next visit - Follow up in 1 month for BP recheck. - Reviewed risks of HTN and principles of treatment - Goal of BP <130/80 - COMP METABOLIC PANEL - HGB A1C - URINALYSIS, WITH MICROSCOPIC - CBC + DIFF - LIPID PANEL BASIC - HIV 1 2 COMBO(AG/AB),WITH REFLEX TO DIFFERENTIATION - HYDROCHLOROTHIAZIDE 12.5 MG CAPSULE - LISINOPRIL 10 MG TABLET 3. Mixed hyperlipidemia - ICD9: 272.2, ICD10: E78.2 - noncompliance, will recheck lipid panel prior to starting any lipid agent - Check fasting lipid panel and ALT. - COMP METABOLIC PANEL - HGB A1C - URINALYSIS, WITH MICROSCOPIC - CBC + DIFF - LIPID PANEL BASIC - HIV 1 2 COMBO(AG/AB),WITH REFLEX TO DIFFERENTIATION 4. Obesity, Class II, BMI 35-39.9 - ICD9: 278.00, ICD10: E66 .9 Stable - Check labs, screen for diabetes, and cholesterol - Discussed excessive alcohol usage - COMP METABOLIC PANEL - HGB A1C - URINALYSIS, WITH MICROSCOPIC - CBC + DIFF - LIPID PANEL BASIC - HIV 1 2 COMBO(AG/AB),WITH REFLEX TO DIFFERENTIATION 5. Acute pain of left shoulder - ICD9: 719.41, ICD10: M25.51 2 - Probable supraspinatus tendinitis based off of exam findin gs. - Rest, ice or heat as needed for comfort. - Use Motrin or Aleve as needed for pain. Limit heavy liftin g and overuse repetitive actions. - Follow-up in 2 to 4 weeks if pain would continue. Consider left shoulder x-ray and physical therapy consultati on if no improvement 6. Alcohol use - ICD9: V49.89, ICD10: Z72.89 -Drink in moderation, recommendation of 2 drinks/day for mal es 7. Screening for HIV (human immunodeficiency virus) - ICD9: V73.89, ICD10: Z11.4 - Screening - HIV 1 2 COMBO(AG/AB),WITH REFLEX TO DIFFERENTIATION 8. Screening for colon cancer - ICD9: V76.51, ICD10: Z12.11 - Screening with family history of colon cancer - PEG 3350-ELECTROLYTES 236 GRAM-22.74 GRAM-6.74 GRAM-5.86 G CHAZ SOLUTION - INSERT IV ([place]) - IV DISCONTINUE 9. Tobacco use disorder - ICD9: 305.1, ICD10: F17.200 - Will address at follow up appointment Kota Barba DNP.PRESIDENT PRACTICING UROLOGIST This note was completed with Taptera dictation software. Note was reviewed for accuracy. There may be minor misspellings or gr ammar miscues with Taptera Dictation. [address] [place], [place] [address] cnov on 2020-02-29 CNOV Office Visit (FAMPWS) Normal 02-29-[address] [place] [address] JASON Phillips ([id number]) 1970 [facility] Date Time Provider Department ([id number]) 02/29/20 3:20 PM KOTA BARBA ([email or web address]) DEMETRA During your visit today, we recorded the following informati on about you: Temperature Pulse Respiration Blood pressure 98.7 degrees 95/minute 16/minute 156/100 Weight 110.7 kg Kota Barba DNP.NOEL, AGRICULTURE SPECIALIST.NOEL 02/29/2020 5:02 PM Signed Chief Complaint Patient presents with: Physical HPI Jason Moore is a 49 year old male who presents here t magdi for a established physical exam. Presents to the [facility] as an established patient of Dr. Hammond, this is a new patient to me. No recent [facility] care visits, ER visits, or hospitalizations. Has a past medical history of high blood pressure, high chol esterol and impaired fasting glucose. Additionally has a history o f obesity, tobacco use and alcohol use. Has been noncompliant w ith his blood pressure and cholesterol medications. Has not taken them for several years. Denies headaches, lightheadedness or dizziness. No chest ottoniel n, difficulty breathing or shortness of breath. No chronic pain or c hronic muscle or joint pain. No history of chronic constipation or diarrhea. Last colonoscopy was 08/2014 and patient was advised to have a repeat colonoscopy in 5 years due to family history, but roma es any abdominal pain, nausea/vomiting, weight loss, or blood in stools. Complains of acute left shoulder pain x2 weeks. Denies any recent injury, pain is described as sharp and worse with movement. No rece nt injury or trauma to the left shoulder or arm. 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 He has been using Motrin for his ba ck pain but has not noticed any improvement for his shoulder. Past medical history, appointments, medications, aller gies reviewed 02/29/2020 Previous Medical History PAST MEDICAL HISTORY Diagnosis Date - Back pain - Hypertension Previous Surgical History PAST SURGICAL HISTORY Procedure Laterality Date - APPL-INTERVERTEBRAL BIOMECHANICAL DEVICES - COLONOSCOP W/ OR W/O BRSH SPEC 09/28/14 Colonoscopy, repeat 5 yrs - INSERT VERT FIX DEV,ANT,3 SGMTS - PAST SURGICAL HISTORY OF back injections and disc biopsy - SPIN BONE ALLOGRFT STRUCTURAL 2012 FUSION AND REPLACED DISC Family History FAMILY HISTORY Problem Relation Age of Onset - Colon Cancer Father 50 - Diabetes Father - Hypertension Father - Prostate Cancer Father 54 - Colon Cancer Paternal Grandfather - Diabetes Paternal Grandfather - Prostate Cancer Paternal Grandfather 50'S - Colon Cancer Paternal Uncle LATE 50'S - Coronary Artery Disease Maternal Aunt - Diabetes Paternal Uncle - Diabetes Paternal Aunt - Hypertension Paternal Grandmother - Hypertension Paternal Aunt - Hypertension Paternal Uncle - Hypertension Maternal Aunt - Hypertension Maternal Aunt - Prostate Cancer Paternal Uncle 50'S Patient Allergies ALLERGIES Allergen Reactions - Ativan [Lorazepam] GI Upset - Paxil [Paroxetine H* GI Upset diarrhea - Zoloft [Sertraline] GI Upset Current Medications Current Outpatient Medications on File Prior to Visit Medication Sig - hydroCHLOROthiazide (HYDRODIURIL, ESIDRIX) 25 mg tablet Ta ke 1 tablet by mouth once daily. (Patient not taking: Reported on 02/29/2020 ) - atenolol (TENORMIN) 50 mg tablet Take 1 tablet by mouth once daily. (Patient not taking: Reported on 02/29/2020 ) - lisinopril (ZESTRIL, PRINIVIL) 20 mg tablet Take 1 tablet by mouth once daily. (Patient not taking: Reported on 02/29/2020 ) - atorvastatin (LIPITOR) 80 mg tablet Take 1 tablet by mouth once daily. (Patient not taking: Reported on 02/29/2020 ) No current facility-administered medications on file prior t o visit. Social History Social History Tobacco Use - Smoking status: Current Every Day Smoker Packs/day: 0.50 Years: 21.00 Pack years: 10.50 - Smokeless tobacco: Never Used Substance Use Topics - Alcohol use: Yes Comment: moderate amount of alcohol - Drug use: Not on file Review of Symptoms PAIN ASSESSMENT: CURRENTLY HAVING PAIN in the left shoulder with movement GENERAL: No unintentional weight loss, malaise or fevers. No night sweats HEENT: Negative for frequent or significant headaches No significant change in vision. No blurry vision, double vision, or vision loss. No nasal discharge No sore throat, difficulty swallowing, mouth lesions or hoar seness No hearing loss. NECK: Negative for lumps, pain and significant neck swelling RESPIRATORY: Negative for cough or hemoptysis. No wheezing, dyspnea or shortness of breath CARDIOVASCULAR: Negative for chest pain, leg swelling, or pa lpitations GI: No nausea, vomiting, or diarrhea. No blood in stool MUSCULOSKELETAL: + left shoulder pain, negative for genera lized joint pain, swelling, back pain or muscle aches SKIN: Negative for lesions, rash, and itching EXAM: BP 156/100 (BP Site: Right Arm, BP Position: Sitting, BP Cuf f Size: Large Adult) Pulse 95 Temp 37.1 ?C (98.7 ?F) (Right Tympanic) Resp 16 Wt 110.7 kg (244 lb) SpO2 97% BMI 35.52 kg/m? General Appearance: Well flaca earing, alert, in no acute distress, well-hydrated, well nourished.. Skin: Skin color, texture, turgor normal, no suspicious rash es or lesions. Head: Normocephalic, no masses Eyes: Anicteric sclera. Pupils are equally round and reactiv e to light. Ears: External ears normal, canals clear, TM's clear with adequate light reflex. Nose/Sinuses: Nares normal, septum midline, mucosa normal, no drainage or sinus tenderness. Oropharynx: Lips, mucosa, and tongue nor mal, teeth and gums normal, oropharynx nonreddened. Neck: Supple, no adenopathy; thyroid symmetric, normal size Lymph Nodes: No cervical lymphadenopathy, No supraclav icular lymphadenopathy Lungs: Lungs clear to auscultation. No wheezing, rhonchi, ra les. Heart: RRR without murmur, gallop, or rubs. No ectopy. Eboni l S1 and S2. Abdomen: Abdomen soft, non-tender. Bowel sounds normal. No m asses, organomegaly. No epigastric tenderness. No upper quadrant ab dominal tenderness. No lower quadrant abdominal tenderness. No rebou nd tenderness. Extremities: No deformities, edema, skin discolo ration, clubbing or cyanosis. MSK: FROM of upper and lower extremities. No joint swelling or redness. Shoulder Exam (Bilateral) Inspection/Palpation UE (R/L): Non-tender bilate rally. No masses, swelling or bruise. No deformity noted. External Rotation and Internal Rotation motion: No pain FROM bilaterally Shoulder Tests: Cross Arm (L): neg Morgan Test (L): neg Neer Impingement Test (L): Pos Empty Can (L): neg Speeds (L): neg Lift Off Test (L): Pos Apprehension (L): neg Strength: Full on the Right and Left Abduction (R/L): 5 / /5 ER(R/L): 01/01 IR (R/L): 01/01 Biceps (R/L):01/01 Triceps (R/L):01/01 Sensation: Grossly intact bilaterally UE Skin (R/L): No rashes or lesions. C-spine Flexion: 45 C-spine Extension: 45 C-spine Right Rotation: 70 C-spine Left Rotation: 70 C-Spine Tenderness: non-tender Psych: Attitude - cooperative, easily engaged in conversatio n Appearance - normal, hygiene and grooming appropriate Affect - euthymic (normal mood), Mental status: Alert, attentive. Speech is clear and fluent with good repetition, comprehension Coordination: There are no abnormal or extraneous movement s, reflexes 2+ at patella and achilles. Gait/Stance: Posture is normal. Gait is steady with normal s [facility] Health Maintenance List ANNUAL PCP TEAM CHRONIC DISEASE VISIT due on 1990 HIV SCREENING due on 1990 BP CONTROLLED (<130/80) due on 1990 ONE PNEUMOVAX PRIOR TO AGE 65 due on 11/19/1991 COLORECTAL CANCER SCREENING,SEE MODIFIER due on 09/28/2019 DIABETES SCREEN due on 11/14/2019 INFLUENZA(1) due on 04/30/2020 LIPID SCREEN due on 11/13/2021 DTAP,TDAP,TD(2 - Td) due on 06/28/2024 HEPATITIS C SCREENING Completed Data reviewed Last 5 Encounter BP Readings: Date: BP: 02/29/2020 156/100 11/22/2017 150/98 11/13/2016 132/90 07/10/2016 120/70 06/10/2016 142/94 BMI Readings from Last 5 Encounters: 02/29/20 : 35.52 kg/m? 11/22/17 : 40.32 kg/m? 11/13/16 : 36.39 kg/m? 07/10/16 : 35.26 kg/m? 06/10/16 : 35.74 kg/m? Last 5 Encounter Wt Readings: Date: Wt: 02/29/2020 110.7 kg (244 lb) 11/22/2017 125.6 kg (277 lb) 11/13/2016 113.4 kg (250 lb) 07/10/2016 110.7 kg (244 lb) 06/10/2016 109.8 kg (242 lb) Medication and allergy list reviewed, reconciled and updated 02/29/2020 Adrián [facility] Gastrointestinal Endoscopy Patient Name: Jason Moore Procedure Date: 09/28/2014 2:47 PM Date of : 1970 Admit Type: Ambulatory Age: 43 Gender: Male Note Status: Finalized Procedure: ? Colonoscopy Indications: ? FH of Colon Cancer - 1st degree relativ e Providers: ? Gerald Hillman MD Findings: ?? ? The colon (entire examined portion) appeared normal. Impression: ?- The entire examined colon is normal. Recommendation: ? ? ?- Discharge patient to home (ambulatory ). ? - Regular diet. ? - Continue present medications. ? - Return to primary care physician PRN. ? - Repeat colonoscopy in 5 years f or screening purposes. ? - Refer to hereditary colon cancer prog chaz (Dr Woods) ? [facility]. ? - Patient has a contact number availabl e for ? emergencies. The signs and symptoms of potential delayed ? complications were discusse d with the patient. Return to ? normal activities tomorrow. Written dis charge ? instructions were provided to the patie nt. Attending Participation: ?? ? I personally performed the entire procedure. MD Gerald Gomez MD 09/28/2014 3:32 PM This report has been signed electronically by Gerald Hillman MD Number of Addenda: 0 Note Initiated On: 09/28/2014 2:47 PM Procedure Start: 3:12:24 PM Procedure End: 3:26:01 PM Component Latest Ref Rng AND Units 07/02/2017 11/22/2017 Glucose 74 - 106 mg/dL 113 (H) BUN 9 - 20 mg/dL 12 Sodium 137 - 145 mmol/L 137 Potassium 3.5 - 5.1 mmol/L 3.7 Chloride 98 - 107 mmol/L 100 CO2 22 - 30 mmol/L 25 Anion Gap 0 - 15 16 (H) Amylase 30 - 110 U/L 69 AST 17 - 59 U/L 54 ALT 21 - 72 U/L 71 Alkaline Phosphatase 38 - 125 U/L 67 GGT 15 - 73 U/L 199 (H) Bilirubin, Total 0.2 - 1.3 mg/dL 1.6 (H) Calcium 8.4 - 10.2 mg/dL 10.0 Phosphorus 2.5 - 4.5 mg/dL 2.9 Uric Acid 3.5 - 8.5 mg/dL 7.0 Cholesterol, Total 100 - 199 mg/dL 308 (H) Triglyceride 35 - 150 mg/dL 253 (H) Protein, Total 6.2 - 8.2 g/dL 7.9 Albumin 3.5 - 5.0 g/dL 4.5 LD 318 - 618 U/L 515 Creatinine 0.66 - 1.25 mg/dL 1.14 eGFR-All Other Races >60 mL/min/1.73 2 >60 eGFR- >60 mL/min/1.73 2 >60 WBC 4.5 - 11.0 k/uL 9.41 RBC 4.50 - 5.90 m/uL 4.71 Hemoglobin 13.5 - 17.5 g/dL 15.5 Hematocrit 41.0 - 53.0 % 45.1 MCV 80 - 100 fL 95.8 MCH 26 - 34 pG 32.9 MCHC 31 - 37 g/dL 34.4 RDW-CV 11.5 - 14.5 % 11.9 Platelet Count 150 - 450 k/uL 220 NRBC 0 - 0.9 /100 WBC 0 Neut% 40 - 70 % 67.3 Abs Neut (ANC) 1.8 - 7.7 k/uL 6.33 Lymph% 22 - 44 % 24.2 Abs Lymph 1.0 - 4.0 k/uL 2.28 Plumas% 4 - 12 % 6.6 Abs Plumas 0 - 0.8 k/uL 0.62 Eosin% 0 - 4 % 1.1 Abs Eosin 0 - 0.4 k/uL 0.10 Baso% 0 - 1 % 0.4 Abs Baso 0 - 0.2 k/uL 0.04 Immature Gran 0 - 1.9 % 0.40 Color Yellow Yellow Clarity Clear Clear Specific Buchanan, Ur 1.005 - 1.030 1.012 1.020 pH, Urine 4.5 - 8.0 6.0 6.0 Protein, Urine Neg mg/dL Negative Negative Glucose, Urine Neg mg/dL Negative Negative Ketones, Urine Neg Negative Negative Bilirubin, Urine Neg Negative Negative Hemoglobin/Blood,Ur Neg Negative Negative Nitrites Neg Negative Negative Urobilinogen 0.0 - 1.0 mg/dl <2.0 Leukest Negative Negative Comment MICROSCOPIC ANALYSIS NOT DONE ON URINES WITH NEGATIV E BIOCHEMICAL TESTS Urobilinogen, Urine Normal (<1.1) EU Normal Leukocytes Neg Negative Color/Appearance comment: Yellow/Clear Quality Check yes/no Yes GC/Chlam Amp Source Urine GC Amplification Negative for Neisseria gonorrhoeae by ampli fication. Chlamydia Amplification Negative for Chlamydia trachom atis by amplification. PT Sec 11.8 - 14.1 sec 12.8 PT INR 0.6 - 1.1 1.0 RPR Nonreactive Nonreactive GB TSH 0.465 - 4.680 uU/mL 5.060 (H) Magnesium 1.3 - 2.3 mg/dL 1.8 Medication and allergy list reviewed, reconciled and updated 02/29/2020 ASSESSMENT/PLAN: 1. Well adult exam - ICD9: V70.0, ICD10: Z00.00 (primary jeremiah gnosis) - Check CBC with diff, CMP, HbA1C, fasting lipid panel , cholesterol, HDL and urinalysis - COMP METABOLIC PANEL - HGB A1C - URINALYSIS, WITH MICROSCOPIC - CBC + DIFF - LIPID PANEL BASIC - HIV 1 2 COMBO(AG/AB),WITH REFLEX TO DIFFERENTIATION 2. Essential hypertension with goal blood pressure less th an 140/90 - ICD9: 401.9, ICD10: I10 - poor control - noncompliance - Begin HCTZ 12.5 mg PO daily, lisinopril (Zestril/Prinivi l) 10 mg PO daily - Recommend home blood pressure monitoring, to b ring results in on next visit - Follow up in 1 month for BP recheck. - Reviewed risks of HTN and principles of treatment - Goal of BP <130/80 - COMP METABOLIC PANEL - HGB A1C - URINALYSIS, WITH MICROSCOPIC - CBC + DIFF - LIPID PANEL BASIC - HIV 1 2 COMBO(AG/AB),WITH REFLEX TO DIFFERENTIATION - HYDROCHLOROTHIAZIDE 12.5 MG CAPSULE - LISINOPRIL 10 MG TABLET 3. Mixed hyperlipidemia - ICD9: 272.2, ICD10: E78.2 - noncompliance, will recheck lipid panel prior to startin g any lipid agent - Check fasting lipid panel and ALT. - COMP METABOLIC PANEL - HGB A1C - URINALYSIS, WITH MICROSCOPIC - CBC + DIFF - LIPID PANEL BASIC - HIV 1 2 COMBO(AG/AB),WITH REFLEX TO DIFFERENTIATION 4. Obesity, Class II, BMI 35-39.9 - ICD9: 278.00, ICD10: E66 .9 Stable - Check labs, screen for diabetes, and cholesterol - Discussed excessive alcohol usage - COMP METABOLIC PANEL - HGB A1C - URINALYSIS, WITH MICROSCOPIC - CBC + DIFF - LIPID PANEL BASIC - HIV 1 2 COMBO(AG/AB),WITH REFLEX TO DIFFERENTIATION 5. Acute pain of left shoulder - ICD9: 719.41, ICD10: M25.51 2 - Probable supraspinatus tendinitis based off of exam findin gs. - Rest, ice or heat as needed for comfort. - Use Motrin or Aleve as needed for pain. Limit heavy liftin g and overuse repetitive actions. - Follow-up in 2 to 4 weeks if pain would continue. Consider left shoulder x-ray and physical therapy consultation if no improvement 6. Alcohol use - ICD9: V49.89, ICD10: Z72.89 -Drink in moderation, recommendation of 2 drinks/day for mal es 7. Screening for HIV (human immunodeficiency virus) - ICD9: V73.89, ICD10: Z11.4 - Screening - HIV 1 2 COMBO(AG/AB),WITH REFLEX TO DIFFERENTIATION 8. Screening for colon cancer - ICD9: V76.51, ICD10: Z12.11 - Screening with family history of colon cancer - PEG 3350-ELECTROLYTES 236 GRAM-22.74 GRAM-6.74 GRAM-5.86 G CHAZ SOLUTION - INSERT IV ([place]) - IV DISCONTINUE 9. Tobacco use disorder - ICD9: 305.1, ICD10: F17.200 - Will address at follow up appointment Kota Barba DNP.PRESIDENT PRACTICING UROLOGIST This note was completed with Dragon 360 dictatio n software. Note was reviewed for accuracy. There may be minor misspellings or gramm ar miscues with Taptera Dictation. [facility] [address] [id number] Kota Barba DNP.NOEL, JOSEE 02/29/2020 4:23 PM Addendum Restart lisinopril hydrochlorothiazide for blood pressure Continue to monitor blood pressure daily at home Perform fasting lab work. No appointment is needed for lab work. Please fast 12 hours prior to blood work. You may zayas ve water, medications and black coffee during that fasting time. Lab hours are from 7:30 - 5:30 pm - and from 8:00 am -12:0 0pm Wednesday. Clinic to call with lab results Complete colonoscopy and shira edule your appointment instructions are listed below For acute shoulder pain rest, ice or hea t as needed for comfort. Use Motrin or Aleve as needed for pain. Limit heavy lifting an d overuse repetitive actions. Follow-up in [address] Hammond or Kota Barba DNP.NOEL Return to the clinic for any worsening signs or symptoms. Fo r any fevers, chills, nausea, or diarrhea. Counseled patient on plan of care, medicaiton side effects and management. Patient verbalizes understanding. Bowel Preparation Instructions for: Golytely, Nulytely, Tril yte or Colyte (polyethylene glycol 3350 and electrolytes) IF YOU DO NOT FOLLOW THESE DIRECTIONS, YOUR COLONOSCOPY WILL BE CANCELLED. Yanez Instructions: ? Your bowel must be empty so that your doctor can clearly view your colon. Follow all of the instructions in this handout EXACTLY as they are written. ? Do NOT eat any solid food the ENTIRE d ay before your colonoscopy. Drink only clear liquids. ? Buy your bowel preparation at least 5 days before your col onoscopy. TRANSPORTATION on the Day of Your Exam A responsible person MUST be present with you at Check In pr ior to your colonoscopy and REMAIN in the endoscopy area until you are discharged. You are NOT ALLOWED to drive, take a taxi or bus , or leave the Endoscopy Center ALONE. If you do not have a responsible driver/refuse collector (family member or friend) with you to take you home, your exam cannot be done with sedation and will be cancelled. Please bring a list of all of your curre nt medications, including any Over-the Counter medications with you. Medications If you take insulin, diabetic medications or blood thi nners such as Coumadin (warfarin), Plavix (clopidogrel), Ticlid (ticlop idine hydrochloride), Agrylin (anagrelide), Xarelto (Rivaroxaban), Pra renan (Dabigatran), Eliquis (Apixaban), and Effient (Prasugrel). You MUST call the docto rs who orders those medicines for instructions on altering the dosage before your colonosc opy. All other medications should be taken the day of the exam with a sip of water including ASPIRIN. Five (5) Days Before Your Colonoscopy ? Do NOT take medicines that stop diarrhea - such as I modium, Kaopectate, or Pepto Bismol. ? Do NOT take fiber supplements - such as Metamucil, Citruce l, or Perdiem. ? Do NOT take products that contain iron - such as mul ti-vitamins (the label lists what is in the products). ? Do NOT take Vitamin E. Buy the prescription bowel preparation solution at your [facility] or drugstore pharmacy. 07/2019 Bowel Preparation Instructions for: Golytely, Nulytely, Tril yte or Colyte (polyethylene glycol 3350 and electrolytes) Three (3) Days Before Your Colonoscopy ? Do NOT eat high-fiber food s - such as popcorn, beans, seeds (flax, sunflower, quinoa), multigrain bread, nuts, salad/vegetables, or fresh and dried fruit. One (1) Day Before Your Colonoscopy ? Only drink clear liquids the ENTIRE DAY before your colonoscopy. Do NOT eat any solid foods. Drink at least 8 ounces of clear liquids ev sasha hour after waking up. The clear liquids you can drink include: Clear Liquid (NO RED LIQUIDS) DO NOT DRINK Gatorade, Pedialyte or Powerade Clear broth or bouillon Coffee or tea (no milk or non-dairy creamer) Carbonated and non-carbonated soft drinks Obdulio-Aid or other fruit flavored drinks Strained fruit juices (no pulp) Jell-O, popsicles, hard candy Water Alcohol Milk or non-dairy creamers Noodles or vegetables in soup Juice with pulp Liquid you cannot see through The bowel preparation solution will be consumed in two parts . Mix the solution the evening before your colonoscopy and r efrigerate before drinking. You may add the flavor pack th at came with the bowel preparation. Do NOT add ice, sugar or any other flavorings to the solution. Part 1 ? At 6:00 PM - Evening before your colonoscopy ? Drink an 8-oz glass of bowel preparation every 10 mi nutes for a total of 8 glasses. ? You may continue to drink clear liquids until midnight. Part 2 ? On the day of your colonoscopy you may drink clear l iquids up to (three) 3 hours before your procedure. ? 4 hours before your colonoscopy ? Drink an 8-oz glass of bowel preparation every 10 mi nutes for a total of 8 glasses. ? Fifteen (15) minutes later, drink an 8-oz glass of clear liquids every 15 minutes for a total of 2 glasses. ? You may continue to drink clear liquids up to (three) 3 hours before your exam. 3 07/2019 Referring Provider: SELF [200] Allergies As of Date: 02/29/2020 Noted Allergy Reaction ATIVAN (LORAZEPAM) 06/10/2016 8 - GI Upset PAXIL (PAROXETINE HCL) 12/25/2015 8 - GI Upset Comments: diarrhea ZOLOFT (SERTRALINE) 06/10/2016 8 - GI Upset Date Reviewed: 02/29/2020 Reviewed by: Kota (Dnp.Tour Production Supervisor) TACOS Barba.PRESIDENT PRACTICING UROLOGIST - Fully Assesse d Reason for Visit: Physical [83] Primary Visit Diagnosis:Well adult exam [Z00.00] Other Visit Diagnoses:Essential hypertension with goal blood pressure less than 140/90 [I10] Mixed hyperlipidemia [E78.2] Obesity, Class II, BMI 35-39.9 [E66.9] Acute pain of left shoulder [M25.512] Alcohol use [Z72.89] Screening for HIV (human immunodeficiency virus) [Z11.4] Screening for colon cancer [Z12.11] Tobacco use disorder [F17.200] Order(s):peg 3350-Electrolytes (GOLYTELY) 236-22.74-6.74 -5. 86 gram suspensionTake 4,000 mL by mouth one time only for 1 dose. R efer to printed prep instructions from your doctor.Disp: 1 BottleRfl : 0 INSERT IV ([place]) [3753450] Order #: [id number]: 1 FUTURE IV DISCONTINUE [2559803] Order #: [id number]: 1 FUTURE INSERT IV ([place]) [3296850] Order #: [id number]: 1 COMP METABOLIC PANEL [SQCMP] Order #: [id number] FUTURE HGB A1C [ERGBL6K] Order #: [id number] FUTURE URINALYSIS, WITH MICROSCOPIC [SQUAWMIC] Order #: [id number] CBC + DIFF [SQCBCDIF] Order #: [id number] FUTURE LIPID PANEL BASIC [SQLIPB] Order #: [id number] FUTURE HIV 1 2 COMBO(AG/AB),WITH REFLEX TO DIFFERENTIATION [SQHIV12 ] Order #: [id number] FUTURE Hydrochlorothiazide 12.5 mg capsuleTake 1 capsule by mouth o nce daily.Disp: 30 capsuleRfl: 1 lisinopril (ZESTRIL, PRINIVIL) 10 mg tabletTake 1 tablet by mouth once daily.Disp: 30 tabletRfl: 1 Prescriptions as of 02/29/2020 Sig: PEG 3350-ELECTROLYTES 236 GRA* Take 4,000 mL by mouth one ti * HYDROCHLOROTHIAZIDE 12.5 MG C* Take 1 capsule by mouth once * LISINOPRIL 10 MG TABLET Take 1 tablet by mouth once d* ATENOLOL 50 MG TABLET Take 1 tablet by mouth once d* Patient not taking: Reported on 02/29/2020 ATORVASTATIN 80 MG TABLET Take 1 tablet by mouth once d* Patient not taking: Reported on 02/29/2020 Problem List As Of Date 02/29/2020 Noted Resolved Left-sided low back pain without sciatica [M54.*07/03/2011 Essential hypertension with goal blood pressure*06/28/2014 Palpitations [R00.2] 06/28/2014 More... Mixed hyperlipidemia [E78.2] 06/28/2014 Well adult exam [Z00.00] 06/28/2014 More... Neurofibroma [D36.10] 08/13/2014 More... Family history of malignant neoplasm of gastroi*09/28/2014 0 09/28/2014 Agoraphobia [F40.00] 01/24/2015 Situational anxiety [F41.8] 01/24/2015 Fatty liver [K76.0] 03/28/2016 Elevated LFTs [R79.89] 03/28/2016 Chronic bilateral low back pain without sciatic*06/10/2016 Prostate cancer screening [Z12.5] 07/10/2016 Smoker [F17.200] 07/10/2016 More... Alcohol use [Z72.89] 07/10/2016 More... Other instructions from your clinician: Restart lisinopril hydrochlorothiazide for blood pressure Continue to monitor blood pressure daily at home Perform fasting lab work. No appointment is needed for lab w ork. Please fast 12 hours prior to blood work. You may have water, medic ations and black coffee during that fasting time. Lab hours are from 7:30 - 5:30 pm - and from 8:00 am -12:0 0pm Wednesday. Clinic to call with lab results Complete colonoscopy and schedule your appointment instructi ons are listed below For acute shoulder pain rest, ice or heat as needed for comf ort. Use Motrin or Aleve as needed for pain. Limit heavy lifting and overuse repetitive actions. Follow-up in [address] Hammond or Kota Barba DNP.PRESIDENT PRACTICING UROLOGIST Return to the clinic for any worsening signs or symptoms. Fo r any fevers, chills, nausea, or diarrhea. Counseled patient on plan of ca re, medicaiton side effects and management. Patient verbalizes martin moss Bowel Preparation Instructions for: Golytely, Nulytely, Tril yte or Colyte (polyethylene glycol 3350 and electrolytes) IF YOU DO NOT FOLLOW THESE DIRECTIONS, YOUR COLONOSCOPY WILL BE CANCELLED. Yanez Instructions: ? Your bowel must be empty so that your doctor can clearly v iew your colon. Follow all of the instructions in this handout EXACTL Y as they are written. ? Do NOT eat any solid food the ENTIRE day before your colon oscopy. Drink only clear liquids. ? Buy your bowel preparation at least 5 days before your col onoscopy. TRANSPORTATION on the Day of Your Exam A responsible person MUST be present with you at Check In pr ior to your colonoscopy and REMAIN in the endoscopy area until you are d ischarged. You are NOT ALLOWED to drive, take a taxi or bus, or leave [facility] ALONE. If you do not have a responsible driver/refuse collector (famil y member or friend) with you to take you home, your exam cannot be done with sedation and will be cancelled. Please bring a list of all of your current medications, incl uding any Over-the Counter medications with you. Medications If you take insulin, diabetic medications or blood thinners such as Coumadin (warfarin), Plavix (clopidogrel), Ticlid (ticlopidi ne hydrochloride), Agrylin (anagrelide), Xarelto (Rivaroxaban), Pradaxa (Dabigatran), Eliquis (Apixaban), and Effient (Prasugrel). Y ou MUST call the doctors who orders those medicines for instructions on a ltering the dosage before your colonoscopy. All other medications should be taken the day of the exam wi th a sip of water including ASPIRIN. Five (5) Days Before Your Colonoscopy ? Do NOT take medicines that stop diarrhea - such as Imodium , Kaopectate, or Pepto Bismol. ? Do NOT take fiber supplements - such as Metamucil, Citruce l, or Perdiem. ? Do NOT take products that contain iron - such as multi-vit amins (the label lists what is in the products). ? Do NOT take Vitamin E. Buy the prescription bowel preparation solution at your [facility] or drugstore pharmacy. 07/2019 Bowel Preparation Instructions for: Golytely, Nulytely, Tril yte or Colyte (polyethylene glycol 3350 and electrolytes) Three (3) Days Before Your Colonoscopy ? Do NOT eat high-fiber foods - such as popcorn, beans, seed s (flax, sunflower, quinoa), multigrain bread, nuts, salad/vegetables , or fresh and dried fruit. One (1) Day Before Your Colonoscopy ? Only drink clear liquids the ENTIRE DAY before your colono scopy. Do NOT eat any solid foods. Drink at least 8 ounces of clear liquid s every hour after waking up. The clear liquids you can drink include: Clear Liquid (NO RED LIQUIDS) DO NOT DRINK Gatorade, Pedialyte or Powerade Clear broth or bouillon Coffee or tea (no milk or non-dairy creamer) Carbonated and non-carbonated soft drinks Obdulio-Aid or other fruit flavored drinks Strained fruit juices (no pulp) Jell-O, popsicles, hard candy Water Alcohol Milk or non-dairy creamers Noodles or vegetables in soup Juice with pulp Liquid you cannot see through The bowel preparation solution will be consumed in two parts . Mix the solution the evening before your colonoscopy and ref rigerate before drinking. You may add the flavor pack that came with the bowel preparation. Do NOT add ice, sugar or any other flavorings t o the solution. Part 1 ? At 6:00 PM - Evening before your colonoscopy ? Drink an 8-oz glass of bowel preparation every 10 minutes for a total of 8 glasses. ? You may continue to drink clear liquids until midnight. Part 2 ? On the day of your colonoscopy you may drink clear liquids up to (three) 3 hours before your procedure. ? 4 hours before your colonoscopy ? Drink an 8-oz glass of bowel preparation every 10 minutes for a total of 8 glasses. ? Fifteen (15) minutes later, drink an 8-oz glass of clear l iquids every 15 minutes for a total of 2 glasses. ? You may continue to drink clear liquids up to (three) 3 ho urs before your exam. 3 07/2019 Prescriptions ordered this encounter Disp Refills Start End PEG 3350-ELECTROLYTES 236 GRAM-22.74* 1 Ru* 0 02/29/202009/2019 Route: ORAL Sig: Take 4,000 mL by mouth one time only for 1 dose. Refe r to printed prep instructions from your doctor. HYDROCHLOROTHIAZIDE 12.5 MG CAPSULE 30 c* 1 02/29/2020 Route: ORAL Sig: Take 1 capsule by mouth once daily. LISINOPRIL 10 MG TABLET 30 t* 1 02/29/2020 Route: ORAL Sig: Take 1 tablet by mouth once daily. Medications Discontinued During This Encounter hydroCHLOROthiazide (HYDRODIURIL, ES* 90 t* 3 01/19/20172019 Route: ORAL Sig: Take 1 tablet by mouth once daily. Patient not taking: Reported on 02/29/2020 Disc: Changing Therapy/Dosage Form lisinopril (ZESTRIL, PRINIVIL) 20 mg* 90 t* 3 01/19/20172019 Route: ORAL Sig: Take 1 tablet by mouth once daily. Patient not taking: Reported on 02/29/2020 Disc: Changing Therapy/Dosage Form Disposition: Return in about 4 weeks (around 03/28/2020). Follow-up and Disposition History Recorded Letter Text Encounter Status:Closed by KOTA BARBA DNP PRESIDENT PRACTICING UROLOGIST on 02/29/20 cnpn on 2019-12-20 CNPN Telephone (ASWSTR) Normal 12-20-2019 [place] [facility] SARATHJASON ([id number]) 1970 [facility] Date Time Provider Department ([id number]) 12/20/19 NOPCP (HISTORICAL) ASWSTR During your visit today, we recorded the following informati on about you: Kaylie Florian RN, RN 12/20/2019 7:47 AM Signed Pt is overdue for 5 yr colonoscopy due to family hx of colon cancer in his father. Patient needs to have consult with Mary corona rst please due to last visit >2 years ago to daniel plunkett weight and BP and update HANDP. Please call and schedule appt. ERASTO Fay Pss 12/21/2019 2:[address] failed attempt to contact patient. Left message to geneva gomez and schedule a colonoscopy consultation or update records if he had one done elsewhere. -Taylor Youngblood Pss Taylor Rylie Pss 12/25/2019 4:16 PM Signed 2 nd failed attempt to contact patient. Left message -Taylor ellison Pss Taylor Rylie Pss 01/16/2020 1:55 PM Signed 3rd failed attempt, patient is scheduled for a physical 2 with Fifi Villafuerte. -Taylor Rylie Pss Allergies As of Date: 12/20/2019 Noted Allergy Reaction ATIVAN (LORAZEPAM) 06/10/2016 8 - GI Upset PAXIL (PAROXETINE HCL) 12/25/2015 8 - GI Upset Comments: diarrhea ZOLOFT (SERTRALINE) 06/10/2016 8 - GI Upset Date Reviewed: 11/23/2017 Reviewed by: Fifi Pierre (Pa) - Fully Assessed Reason for Visit: Outpatient Colonoscopy [482] Prescriptions as of 12/20/2019 Sig: HYDROCHLOROTHIAZIDE 25 MG TAB* Take 1 tablet by mouth once d * ATENOLOL 50 MG TABLET Take 1 tablet by mouth once d* LISINOPRIL 20 MG TABLET Take 1 tablet by mouth once d* ATORVASTATIN 80 MG TABLET Take 1 tablet by mouth once d* Problem List As Of Date 12/20/2019 Noted Resolved Left-sided low back pain without sciatica [M54.*07/03/2011 Essential hypertension with goal blood pressure*06/28/2014 Palpitations [R00.2] 06/28/2014 More... Mixed hyperlipidemia [E78.2] 06/28/2014 Well adult exam [Z00.00] 06/28/2014 More... Neurofibroma [D36.10] 08/13/2014 More... Family history of malignant neoplasm of gastroi*09/28/2014 0 09/28/2014 Agoraphobia [F40.00] 01/24/2015 Situational anxiety [F41.8] 01/24/2015 Fatty liver [K76.0] 03/28/2016 Elevated LFTs [R79.89] 03/28/2016 Chronic bilateral low back pain without sciatic*06/10/2016 Prostate cancer screening [Z12.5] 07/10/2016 Smoker [F17.200] 07/10/2016 More... Alcohol use [Z72.89] 07/10/2016 More... Encounter Status:Closed by TAYLOR LASSITER on 01/16/20 progress on 2019-07 PROGRESS HNO ID: [id number] Normal 08-21-2019 [facility] Author: Lisa Parsons ([id number]) Service: ? Author Type: Armature Tester Type: Progress Notes Filed: 08/21/2019 11:35 AM Note Text: POPULATION HEALTH CHIEF DATA OFFICER QUICKNOTE Provider Action/FYI: Letter mailed to patient. Patient identified by name and . Lisa Parsons CMA PROGRESS HNO ID: [id number] Normal 08-21-2019 [facility] Author: Lisa Parsons ([id number]) Service: ? Author Type: Armature Tester Type: Progress Notes Filed: 08/21/2019 11:35 AM Note Text: POPULATION HEALTH CHIEF DATA OFFICER QUICKNOTE Provider Action/FYI: 3rd attempt - Left message for patient to return call #[phone] Mailing letter to patient. Patient identified by name and . Lisa Parsons CMA progress on 2019-07 PROGRESS HNO ID: [id number] Normal 08-18-2019 [facility] Author: Lisa Parsons ([id number]) Service: ? Author Type: Armature Tester Type: Progress Notes Filed: 08/21/2019 11:35 AM Note Text: POPULATION HEALTH CHIEF DATA OFFICER QUICKNOTE Provider Action/FYI: 2nd attempt - Left message for patient to return call #[phone] Patient identified by name and . Lisa Parsons CINDY progress on 2019-07 PROGRESS HNO ID: [id number] Normal 08-16-2019 [facility] Author: Lisa Parsons [place] ([id number]) Service: ? Author Type: Armature Tester Type: Progress Notes Filed: 08/21/2019 11:35 AM Note Text: POPULATION [facility] CHIEF DATA OFFICER QUICKNOTE Provider Action/FYI: 1st attempt - MyChart message sent. Patient identified by name and . Lisa Parsons CMA PROGRESS HNO ID: [id number] Normal 08-16-2019 [facility] Author: Lisa Parsons [place] ([id number]) Service: ? Author Type: Armature Tester Type: Progress Notes Filed: 08/21/2019 11:35 AM Note Text: PHMA CARE GAP REGISTRY DOCUMENTATION (OUTSIDE TEAMLET) Provider Action/FYI: PSR Action/FYI: - due for physical (last PCP appointment 10/2617) Health Maintenance Due: BP CONTROLLED (<130/80) due on 1990 ONE PNEUMOVAX PRIOR TO AGE 67 due on 11/19/1991 ANNUAL PCP TEAM CHRONIC DISEASE VISIT due on 11/22/2018 INFLUENZA(1) due on 04/30/2019 Patient identified by name and date of . Last BP/Labs: Blood Pressure: Last 3 Encounter BP Readings: Date: BP: 11/22/2017 150/98 11/13/2016 132/90 07/10/2016 120/70 Lipids: Cholesterol, Total (mg/dL) Date Value 07/02/2017 308 11/13/2016 277 HDL Cholesterol (mg/dL) Date Value 11/13/2016 66 01/15/2016 70 LDL Cholesterol (mg/dL) Date Value 11/13/2016 189 01/15/2016 166 Triglyceride (mg/dL) Date Value 07/02/2017 253 11/13/2016 109 HGB A1C: No results found for: HBA1C TSH: TSH (uU/mL) Date Value 02/18/2015 1.990 ) ? Patient has the following care gap registry disease diagno sis:HTN ? Patient has the following open care gaps: Health Maintenance Due: BP CONTROLLED (<130/80) due on 1990 ONE PNEUMOVAX PRIOR TO AGE 67 due on 11/19/1991 ANNUAL PCP TEAM CHRONIC DISEASE VISIT due on 11/22/2018 INFLUENZA(1) due on 04/30/2019 ? Last office visit: 11/22/2017 ? Future office visit: Physical next available with pcp or n p Lisa Parsons CMA cnptoutreafrannie on 05-11-18 CNPTOUTREACH Patient Outreach (FAMPWS) Normal 1 10-17-2018 [place] JASON Phillips ([id number]) 1970 [facility] Date Time Provider Department ([id number]) 08/16/19 LISA PARSONS (CINDY) FAMPWS During your visit today, we recorded the following informati on about you: Lisa Parsons CMA 08/21/2019 11:35 AM Signed [facility] CARE GAP REGISTRY DOCUMENTATION (OUTSIDE TEAMLET) Provider Action/FYI: PSR Action/FYI: - due for physical (last PCP appointment 10/2617) Health Maintenance Due: BP CONTROLLED (<130/80) due on 1990 ONE PNEUMOVAX PRIOR TO AGE 67 due on 11/19/1991 ANNUAL PCP TEAM CHRONIC DISEASE VISIT due on 11/22/2018 INFLUENZA(1) due on 04/30/2019 Patient identified by name and date of . Last BP/Labs: Blood Pressure: Last 3 Encounter BP Readings: Date: BP: 11/22/2017 150/98 11/13/2016 132/90 07/10/2016 120/70 Lipids: Cholesterol, Total (mg/dL) Date Value 07/02/2017 308 11/13/2016 277 HDL Cholesterol (mg/dL) Date Value 11/13/2016 66 01/15/2016 70 LDL Cholesterol (mg/dL) Date Value 11/13/2016 189 01/15/2016 166 Triglyceride (mg/dL) Date Value 07/02/2017 253 11/13/2016 109 HGB A1C: No results found for: HBA1C TSH: TSH (uU/mL) Date Value 02/18/2015 1.990 ) ? Patient has the following care gap registry disease diagno sis:HTN ? Patient has the following open care gaps: Health Maintenance Due: BP CONTROLLED (<130/80) due on 1990 ONE PNEUMOVAX PRIOR TO AGE 67 due on 11/19/1991 ANNUAL PCP TEAM CHRONIC DISEASE VISIT due on 11/22/2018 INFLUENZA(1) due on 04/30/2019 ? Last office visit: 11/22/2017 ? Future office visit: Physical next available with pcp or n p CINDY Doherty [facility] 08/21/2019 11:35 AM Signed [facility] ASSISTANT CrowdBouncerNOTE Provider Action/FYI: 1st attempt - MyChart message sent. Patient identified by name and . CINDY Doherty [facility] 08/21/2019 11:35 AM Signed [facility] ASSISTANT QUICKNOTE Provider Action/FYI: 2nd attempt - Left message for patient to return call #[phone] Patient identified by name and . CINDY Doherty [facility] 08/21/2019 11:35 AM Signed [facility] ASSISTANT VIGNESHNOTE Provider Action/FYI: 3rd attempt - Left message for patient to return call #[phone] Mailing letter to patient. Patient identified by name and . CINDY Doherty [facility] 08/21/2019 11:35 AM Signed [facility] ASSISTANT CrowdBouncerNOTE Provider Action/FYI: Letter mailed to patient. Patient identified by name and . Lisa Parsons [facility] Allergies As of Date: 08/16/2019 Noted Allergy Reaction ATIVAN (LORAZEPAM) 06/10/2016 8 - GI Upset PAXIL (PAROXETINE HCL) 12/25/2015 8 - GI Upset Comments: diarrhea ZOLOFT (SERTRALINE) 06/10/2016 8 - GI Upset Date Reviewed: 11/23/2017 Reviewed by: Fifi Guadalupe) Ignacio - Fully Assessed Reason for Visit: PHMA/Care Gap Outreach [[id number]] Prescriptions as of 08/16/2019 Sig: HYDROCHLOROTHIAZIDE 25 MG TAB* Take 1 tablet by mouth once d * ATENOLOL 50 MG TABLET Take 1 tablet by mouth once d* LISINOPRIL 20 MG TABLET Take 1 tablet by mouth once d* ATORVASTATIN 80 MG TABLET Take 1 tablet by mouth once d* Problem List As Of Date 08/16/2019 Noted Resolved Left-sided low back pain without sciatica [M54.*07/03/2011 Essential hypertension with goal blood pressure*06/28/2014 Palpitations [R00.2] 06/28/2014 More... Mixed hyperlipidemia [E78.2] 06/28/2014 Well adult exam [Z00.00] 06/28/2014 More... Neurofibroma [D36.10] 08/13/2014 More... Family history of malignant neoplasm of gastroi*09/28/2014 0 09/28/2014 Agoraphobia [F40.00] 01/24/2015 Situational anxiety [F41.8] 01/24/2015 Fatty liver [K76.0] 03/28/2016 Elevated LFTs [R94.5] 03/28/2016 Chronic bilateral low back pain without sciatic*06/10/2016 Prostate cancer screening [Z12.5] 07/10/2016 Smoker [F17.200] 07/10/2016 More... Alcohol use [Z72.89] 07/10/2016 More... Letter Text Encounter Status:Closed by LISA PARSONS CMA on 08/21/19 rpr on 2017-07-06 Reagin antibody Nonreactive Nonreactive Normal 07-06-2017 [facility] (00 000) Comment: Performed By: #### CBCDIF, U A, PT, GBCHEM, GBTSH, MG, RPR ####[facility] [id number] [address] [place], [place] [phone] urinalysis on 07-02 Bilirubin (total) Negative Negative mg/dL Normal 07-02-2017 [facility] ([id number]) Comment: Performed By: #### CBCDIF, U A, PT, GBCHEM, GBTSH, MG, RPR ####[facility] [id number] [place], [place] [phone] Comments MICROSCOPIC ANALYSIS NOT Normal 07-02 [facility] DONE ON URINES WITH NEGATIVE ([id number]) BIOCHEMICAL TESTS Comment: Performed By: #### CBCDIF, U A, PT, GBCHEM, GBTSH, MG, RPR ####[facility] [id number] [place], [place] [phone] Glucose mass conc Negative Negative mg/dL Normal 07-02-2017 [facility] (28206) Comment: Performed By: #### CBCDIF, U A, PT, GBCHEM, GBTSH, MG, RPR ####[facility] [id number] [place], [place] [phone] Hemoglobin mass conc Negative Negative g/dL Normal [address] [place] [address] ([facility]) [place] (00 000) Comment: Performed By: #### CBCDIF, U A, PT, GBCHEM, GBTSH, MG, RPR ####[facility] [id number] [place], [place] [phone] Ketone Negative Negative Normal 07-02-2017 [facility] ([id number]) Comment: Performed By: #### CBCDIF, U A, PT, GBCHEM, GBTSH, MG, RPR ####[facility] [id number] [place], [place] [phone] Leukest Negative Negative Normal 07-02-2017 [facility] ([id number]) Comment: Performed By: #### CBCDIF, U A, PT, GBCHEM, GBTSH, MG, RPR ####[facility] [id number] [place], [place] [phone] Protein Negative Negative g/dL Normal 07-02-2017 [facility] (13560) Comment: Performed By: #### CBCDIF, U A, PT, GBCHEM, GBTSH, MG, RPR ####[facility] [id number] [place], [place] [phone] Urine Spec [place] 1.012 1.005-1.030 Normal 7 [facility] ([id number]) Comment: Performed By: #### CBCDIF, U A, PT, GBCHEM, GBTSH, MG, RPR ####[facility] [id number] [place], [place] [phone] Urine, clarity Clear Clear Normal 07-02-2017 [facility] (82249) Comment: Performed By: #### CBCDIF, U A, PT, GBCHEM, GBTSH, MG, RPR ####[facility] [id number] [facility] [place], [place] [phone] Urine, color Yellow Yellow Normal 07-02-2017 [facility] (52342) Comment: Performed By: #### CBCDIF, U A, PT, GBCHEM, GBTSH, MG, RPR ####[facility] [id number] [facility] [place], [place] [phone] Urine, nitrite presence Negative Negative Normal 2016 [facility] (71937) Comment: Performed By: #### CBCDIF, U A, PT, GBCHEM, GBTSH, MG, RPR ####[facility] [id number] [place], [place] [phone] Urine, pH 6.0 5-7 [pH] Normal 07-02-2017 [facility] (65563) Comment: Performed By: #### CBCDIF, U A, PT, GBCHEM, GBTSH, MG, RPR ####[facility] [id number] [place], [place] [phone] Urine, urobilinogen <2.0 0.0-1.0 Normal 07-02-2017 [facility] ([id number]) Comment: Performed By: #### CBCDIF, U A, PT, GBCHEM, GBTSH, MG, RPR ####[facility] [id number] [place], [place] [phone] protime on INR Coag RelTime (Bld) 1.0 0.6-1.1 {INR} Normal 017 [facility] (49777) Comment: Result Comment: The PT/INR c an be used to monitor the therapeutic effect of oral anticoagulants, such as warfarin. The recommended therapeutic range is an INR of 2.0 to 3.0 for mos t applications, including treatment and prevention of venous thrombo sis,treatment of pulmonary embolism, prevention of strokes/TIA in patients w ith atrial fibrillation, prevention and treatment of thrombosis in p atients with a lupus anticoagulant and prevention of systemic embol ization in patients with heart valve disorders.There are certain conditions where clinicians may decide to use a lower or higher therapeutic range eg. 1.5 to 1.9 for secondary prevention of idiopathic venous thromboemb olism and an INR 2.5 to 3.5 for older generation mechanical heart valves.Laloe ll, et al. Chest 2004: 126:204S to 233S. Performed By: #### CBCDIF, U A, PT, GBCHEM, GBTSH, MG, RPR ####[facility] [id number] [place], [place] [phone] PT Sec 12.8 11.8-14.1 sec Normal 07-02-2017 [facility] ([id number]) Comment: Performed By: #### CBCDIF, U A, PT, GBCHEM, GBTSH, MG, RPR ####[facility] Vgc71589 [place], [place] [phone] magnesium on 2016-08 Magnesium 1.8 1.3-2.3 mg/dL Normal 07-02-2017 [facility] (67048) Comment: Performed By: #### CBCDIF, U A, PT, GBCHEM, GBTSH, MG, RPR ####[facility] Atq17837 [place], [place] [phone] [facility] tsh on 16-07-03 Thyroid stimulating 5.060 0.465-4.680 uU/mL High 07-02-20 [facility] (54435) Comment: Performed By: #### CBCDIF, U A, PT, GBCHEM, GBTSH, MG, RPR ####[facility] Fww73669 [place], [place] [phone] lola chem prof on 2017-07-02 Alanine aminotransferase (ALT) 71 21-72 U/L Normal 07-02-2017 [facility] (00 000) Comment: Performed By: #### CBCDIF, U A, PT, GBCHEM, GBTSH, MG, RPR ####[facility] Qwy42866 [place], [place] [phone] Albumin 4.5 3.5-5.0 g/dL Normal 07-02-2017 [facility] (34258) Comment: Performed By: #### CBCDIF, U A, PT, GBCHEM, GBTSH, MG, RPR ####[facility] Vir08409 [place], [place] [phone] Alkaline Phos 67 38-125 U/L Normal 07-02-2017 [facility] (98952) Comment: Performed By: #### CBCDIF, U A, PT, GBCHEM, GBTSH, MG, RPR ####[facility] Vel66399 [place], [place] [phone] Amylase 69 30-110 U/L Normal 07-02-2017 [facility] (33346) Comment: Performed By: #### CBCDIF, U A, PT, GBCHEM, GBTSH, MG, RPR ####[facility] Vmt22757 [place], [place] [phone] Anion gap 16 0-15 mmol/L High 07-02-2017 [facility] (22530) Comment: Performed By: #### CBCDIF, U A, PT, GBCHEM, GBTSH, MG, RPR ####[facility] Ftp49046 [place] [phone] Aspartate aminotransferase 54 17-59 U/L Normal [facility] ([facility] [place] (00 000) Comment: Performed By: #### CBCDIF, U A, PT, GBCHEM, GBTSH, MG, RPR ####[facility] Tcp19077 [place], [place] [phone] Bilirubin Ql (U) 1.6 0.2-1.3 mg/dL High 07-02-2017 [facility] (86265) Comment: Performed By: #### CBCDIF, U A, PT, GBCHEM, GBTSH, MG, RPR ####[facility] Wrq21334 [facility] [place], [place] [phone] Calcium 10.0 8.4-10.2 mg/dL Normal 07-02-2017 [facility] (66988) Comment: Performed By: #### CBCDIF, U A, PT, GBCHEM, GBTSH, MG, RPR ####[facility] Una19367 [place], [place] [phone] Chloride 100 98-107 mmol/L Normal 07-02-2017 [facility] (00006) Comment: Performed By: #### CBCDIF, U A, PT, GBCHEM, GBTSH, MG, RPR ####[facility] Wvk04985 [facility] [place], [place] [phone] Cholesterol 308 100-199 mg/dL High 07-02-2017 [facility] (33501) Comment: Performed By: #### CBCDIF, U A, PT, GBCHEM, GBTSH, MG, RPR ####[facility] Ifa63219 [facility] [place], [place] [phone] CO2 25 22-30 mmol/L Normal 07-02-2017 [facility] (73517) Comment: Performed By: #### CBCDIF, U A, PT, GBCHEM, GBTSH, MG, RPR ####[facility] Rgb18266 [place], [place] [phone] Creatinine 1.14 0.66-1.25 mg/dL Normal 07-02-2017 [facility] (10251) Comment: Performed By: #### CBCDIF, U A, PT, GBCHEM, GBTSH, MG, RPR ####[facility] Mef81061 [facility] [place], [place] [phone] eGFR (non-black) >60 >60 mL/min/{1.73_m2} Normal 2016 [facility] (25718) Comment: Performed By: #### CBCDIF, U A, PT, GBCHEM, GBTSH, MG, RPR ####[facility] Iqt83802 [place], [place] [phone] Result Comment: MDRD calcula tion used for eGFR results. GGT 199 15-73 U/L High 07-02-2017 [facility] (55678) Comment: Performed By: #### CBCDIF, U A, PT, GBCHEM, GBTSH, MG, RPR ####[facility] Wls93841 [place], [place] [phone] Glucose mass conc 113 74-106 mg/dL High 07-02-2017 [facility] (26296) Comment: Performed By: #### CBCDIF, U A, PT, GBCHEM, GBTSH, MG, RPR ####[facility] Urt90327 [facility] [place], [place] [phone] LDH 515 318-618 U/L Normal 07-02-2017 [facility] (32301) Comment: Performed By: #### CBCDIF, U A, PT, GBCHEM, GBTSH, MG, RPR ####[facility] Oaz44267 [place], [place] [phone] Phosphate 2.9 2.5-4.5 mg/dL Normal 07-02-2017 [facility] (01892) Comment: Performed By: #### CBCDIF, U A, PT, GBCHEM, GBTSH, MG, RPR ####[facility] Ekr15966 [place], [place] [phone] Potassium molar conc 3.7 3.5-5.1 mmol/L Normal 7 [facility] (91005) Comment: Performed By: #### CBCDIF, U A, PT, GBCHEM, GBTSH, MG, RPR ####[facility] Aui40956 [facility] [place], [place] [phone] Protein 7.9 6.2-8.2 g/dL Normal 07-02-2017 [facility] (87677) Comment: Performed By: #### CBCDIF, U A, PT, GBCHEM, GBTSH, MG, RPR ####[facility] Xki74366 [place], [place] [phone] Sodium 137 137-145 mmol/L Normal 07-02-2017 [facility] (31604) Comment: Performed By: #### CBCDIF, U A, PT, GBCHEM, GBTSH, MG, RPR ####[facility] Szd83730 [place], [place] [phone] Triglyceride 253 35-150 mg/dL High 07-02-2017 [facility] (71971) Comment: Performed By: #### CBCDIF, U A, PT, GBCHEM, GBTSH, MG, RPR ####[facility] Xdw67875 [place], [place] [phone] Urate 7.0 3.5-8.5 mg/dL Normal 07-02-2017 [facility] (70485) Comment: Performed By: #### CBCDIF, U A, PT, GBCHEM, GBTSH, MG, RPR ####[facility] Xis78658 [place], [place] [phone] Urea nitrogen 12 9-20 mg/dL Normal 07-02-2017 [facility] (03730) Comment: Performed By: #### CBCDIF, U A, PT, GBCHEM, GBTSH, MG, RPR ####[facility] Dur57726 [place], [place] [phone] cbcdif on 3 Abs Baso 0.04 0-0.2 k/uL Normal 07-02-2017 [facility] (81081) Comment: Performed By: #### CBCDIF, U A, PT, GBCHEM, GBTSH, MG, RPR ####[facility] Hoy55221 [place], [place] [phone] Abs Plumas 0.62 0-0.8 k/uL Normal 07-02-2017 [facility] (33391) Comment: Performed By: #### CBCDIF, U A, PT, GBCHEM, GBTSH, MG, RPR ####[facility] Clw30128 [place], [place] [phone] Abs Neut 6.33 1.8-7.7 k/uL Normal 07-02-2017 [facility] (05292) Comment: Performed By: #### CBCDIF, U A, PT, GBCHEM, GBTSH, MG, RPR ####[facility] Gzo21694 [place], [place] [phone] Basophils/100 WBC Auto (Bld) 0.4 0-1 % Normal 1 09-01-2016 [facility] (44530) Comment: Performed By: #### CBCDIF, U A, PT, GBCHEM, GBTSH, MG, RPR ####[facility] Ghg13817 [place], [place] [phone] Eosinophils 0.10 0-0.4 k/uL Normal 07-02-2017 [facility] (25451) Comment: Performed By: #### CBCDIF, U A, PT, GBCHEM, GBTSH, MG, RPR ####[facility] Rxv79376 [place], [place] [phone] Eosinophils/100 leukocytes 1.1 0-4 % Normal [facility] (65923) Comment: Performed By: #### CBCDIF, U A, PT, GBCHEM, GBTSH, MG, RPR ####[facility] Kfk44933 [place], [place] [phone] Erythrocyte distribution 11.9 11.5-14.5 % Normal 07-02 [facility] (27737) Comment: Performed By: #### CBCDIF, U A, PT, GBCHEM, GBTSH, MG, RPR ####[facility] Waq20207 [place] [phone] Erythrocytes (RBC) 0 0-0.9 /100 WBC Normal 07-02-2017 [facility] (46043) Comment: Performed By: #### CBCDIF, U A, PT, GBCHEM, GBTSH, MG, RPR ####[facility] Gxr32841 [facility] [place], [place] [phone] Erythrocytes (RBC) 4.71 4.50-5.90 m/uL Normal 07-02-2017 [facility] (22890) Comment: Performed By: #### CBCDIF, U A, PT, GBCHEM, GBTSH, MG, RPR ####[facility] Wfw77287 [facility] [place], [place] [phone] Hematocrit (HCT) 45.1 41.0-53.0 % Normal 07-02-2017 [facility] (03492) Comment: Performed By: #### CBCDIF, U A, PT, GBCHEM, GBTSH, MG, RPR ####[facility] Ekm40339 [facility] [place], [place] [phone] Hemoglobin mass conc 15.5 13.5-17.5 g/dL Normal 7 [facility] (B[facility] [place] (00 000) Comment: Performed By: #### CBCDIF, U A, PT, GBCHEM, GBTSH, MG, RPR ####[facility] Axo71256 [facility] [place], [place] [phone] Immature Gran 0.40 0-1.9 % Normal 07-02-2017 [facility] (46482) Comment: Performed By: #### CBCDIF, U A, PT, GBCHEM, GBTSH, MG, RPR ####[facility] Vrj66761 [facility] [place], [place] [phone] Lymphocytes 2.28 1.0-4.0 k/uL Normal 07-02-2017 [facility] (76030) Comment: Performed By: #### CBCDIF, U A, PT, GBCHEM, GBTSH, MG, RPR ####[facility] Uqw98542 [facility] [place], [place] [phone] Lymphocytes/100 leukocytes 24.2 22-44 % Normal [facility] (34121) Comment: Performed By: #### CBCDIF, U A, PT, GBCHEM, GBTSH, MG, RPR ####[facility] Opm33077 [facility] [place], [place] [phone] MCH 32.9 26-34 pG Normal 07-02-2017 [facility] (54705) Comment: Performed By: #### CBCDIF, U A, PT, GBCHEM, GBTSH, MG, RPR ####[facility] Loh47783 [place], [place] [phone] MCHC mass conc (RBC) 34.4 31-37 g/dL Normal 7 [facility] (70871) Comment: Performed By: #### CBCDIF, U A, PT, GBCHEM, GBTSH, MG, RPR ####[facility] Onm68338 [facility] [place], [place] [phone] MCV 95.8 80-100 fL Normal 07-02-2017 [facility] (78855) Comment: Performed By: #### CBCDIF, U A, PT, GBCHEM, GBTSH, MG, RPR ####[facility] Qse51970 [facility] [place], [place] [phone] Monocytes/100 leukocytes 6.6 4-12 % Normal 07-02 [facility] (64935) Comment: Performed By: #### CBCDIF, U A, PT, GBCHEM, GBTSH, MG, RPR ####[facility] Msh11880 [place], [place] [phone] Neutrophils/100 WBC Auto (Bld) 67.3 40-70 % Normal 07-02-2017 [facility] (57525) Comment: Performed By: #### CBCDIF, U A, PT, GBCHEM, GBTSH, MG, RPR ####[facility] Ozu57931 [place], [place] [phone] Platelets 220 150-450 k/uL Normal 07-02-2017 [facility] (17920) Comment: Performed By: #### CBCDIF, U A, PT, GBCHEM, GBTSH, MG, RPR ####[facility] Lrn97530 [place], [place] [phone] WBC (Leukocytes) 9.41 4.5-11.0 k/uL Normal 07-02-2017 [facility] (31419) Comment: Performed By: #### CBCDIF, U A, PT, GBCHEM, GBTSH, MG, RPR ####[facility] Zgb56203 [place], [place] [phone] Encounters Date Type Reason Provider Location 07-02-2017 [facility] (0000 0) 06-09-2020 - Letter encounter Yany Sampson [facility] ent Care 06-09-2020 08-06-2020 - Patient encounter External Provider [facility] 08-06-2020 procedure 08-06-2020 Results Only External Provider External-N on[facility] 07-30-2020 - Telephone encounter Kota (Dylan.Noel) [facility] Medicine 07-30-2020 Freda Sampson Comment: Results 07-22-2020 - Telephone encounter Kota (Yoli) Freda [facility] Medicine 07-22-2020 Adrián Comment: COVID + 06-09-2020 - 06-09-2020 Telephone encounter Yany Sampson [facility] Comment: Results 06-08-2020 - 06-08-2020 Telephone encounter Urgent Car [facility] Adrián Comment: Covid Follow Up (test result s- neg) Procedures Procedure Name Date Provider Location EXTERNAL LAB 08-06-2020 External Provider [facility] (66088) Colon[facility] 09-28-2014 - [facility]344[facility] Plan of Treatment Plan Description Date Location LIPID SCREEN LIPID SCREEN 03-12-2025 - [facility] 03-12-2025 ([id number]) DTAP,TDAP,TD (2 - Td) DTAP,TDAP,TD (2 - Td) 06-28-2024 - [facility] 06-28-2024 (12665) DIABETES SCREEN DIABETES SCREEN 03-12-2023 - [facility] 03-12-2023 (02475) INFLUENZA (#1) INFLUENZA (#1) 2020 - [facility] 04-30-2020 (40919) COLONOSCOPY COLONOSCOPY 09-28-2019 - [facility] 09-28-2019 (38918) COLONOSCOPY COLONOSCOPY 09-28-2019 [facility] (03301) ONE PNEUMOVAX PRIOR TO ONE PNEUMOVAX PRIOR TO 11-19-1991 - [facility] AGE 67 AGE 67 11-19-1991 ([id number]) ANNUAL PCP TEAM CHRONIC ANNUAL PCP TEAM CHRONIC 1990 - [facility] DISEASE VISIT DISEASE VISIT 1990 (45545) BP CONTROLLED (<130/80) BP CONTROLLED (<130/80) 1990 - [facility] 1990 (11510) no information [facility] (18878) Immunizations Vaccine Notes Status Date Location Tdap (Age 7+) tetanus toxoid, (completed) 06-28-2014 - [facility] linic reduced diphtheria 06-28-2014 (28677) toxoid, and acellular pertussis vaccine, adsorbed Payers Payer Name Policy Number Location [facility] [employer] [facility] (87 278) ANTHBARON [id number] [facility] ([id number] [id number]) The following information is from the original human readable contentNo Payer Records FoundNo Payer Records FoundNo Payer Records Found Social History Type Social History Date Location Description Tobacco smoking status Current every day smoker 06-05-2020 - [facility] NHIS 06-05-2020 (60419) Cigarettes smoked 06-05-2020 - [facility] current (pack per day) 06-05-2020 (49773) - Reported Tobacco use and Never used 06-05-2020 - [facility] exposure 06-05-2020 (03697) Alcohol intake Current drinker of 06-05-2020 - [facility] jo alcohol (finding) 06-05-2020 (89119) Alcohol Comment moderate amount of 07-03-2011 [facility] (81123) Sex Assigned At Not on file 1970 [facility] (48675) Exposure to SARS-CoV-2 Not sure [facility] (event) (27693) The following information is from the original human readable contentNo Social History Records FoundNo Social History Records FoundNo Social History Records Found Summary Purpose Family History No Family History Records FoundNo Family History Records Found Advance Directives No Advanced Directives Records FoundNo Advanced Directives Records Found History of Past Illness Problem Noted Date Resolved Date Family history of malignant neoplasm of gastrointestinal 09/28/2014 tract Problem Noted Date Resolved Date Family history of malignant neoplasm of gastrointestinal 09/28/2014 tract Additional Source Comments FOR RECORDS PERTAINING TO PATIENTS WHO ARE OR HAVE BEEN ENROLLED IN A CHEMICAL DEPENDENCY/SUBSTANCE ABUSE PROGRAM, SOME INFORMATION MAY BE OMITTED. This clinical summary was aggregated from multiple sources. Caution should be exercised in using it in the provision of clinical care. This summary normalizes information from multiple sources, and as a consequence, information in this document may materially changethe coding, format and clinical context of patient data. In addition, data may be omittedin some cases. CLINICAL DECISIONS SHOULD BE BASED ON THE PRIMARY CLINICAL RECORDS. [facility] provides no warranty or guarantee of the accuracy or completeness of information in this document. UNRECOGNIZED CONTENT PROVIDED BELOW FOR UNRECOGNIZED SECTION No Status Records FoundNo Status Records Found UNRECOGNIZED CONTENT PROVIDED BELOW FOR UNRECOGNIZED SECTION INFORMATION SOURCE DATE CREATED AUTHOR AUTHOR'S ORGANIZATIO N 02/22/2018 [facility] DATE CREATED AUTHOR AUTHOR'S ORGANIZATIO N 08/01/2020 [facility] UNRECOGNIZED CONTENT PROVIDED BELOW FOR UNRECOGNIZED SECTION Source Comments In the event this information is protected by the Federal Confidentiality of Alcohol and Drug Abuse Patient Records regulations: The Federal rules restrict any use of the information to criminally investigate or prosecute any alcohol or drug abuse patient.[facility] the event this information is protected by the Federal Confidentiality of Alcohol and Drug Abuse Patient Records regulations: The Federal rules restrict any use of the information to criminally investigate or prosecute any alcohol or drug abuse patient.[facility] the event this information is protected by the Federal Confidentiality of Alcohol and Drug Abuse Patient Records regulations: The Federal rules restrict any use of the information to criminally investigate or prosecute any alcohol or drug abuse patient.[facility] the event this information is protected by the Federal Confidentiality of Alcohol and Drug Abuse Patient Records regulations: The Federal rules restrict any use of the information to criminally investigate or prosecute any alcohol or drug abuse patient.[facility] the event this information is protected by the Federal Confidentiality of Alcohol and Drug Abuse Patient Records regulations: The Federal rules restrict any use of the information to criminally investigate or prosecute any alcohol or drug abuse patient.[facility] the event this information is protected by the Federal Confidentiality of Alcohol and Drug Abuse Patient Records regulations: The Federal rules restrict any use of the information to criminally investigate or prosecute any alcohol or drug abuse patient.[facility] the event this information is protected by the Federal Confidentiality of Alcohol and Drug Abuse Patient Records regulations: The Federal rules restrict any use of the information to criminally investigate or prosecute any alcohol or drug abuse patient.[facility] UNRECOGNIZED CONTENT PROVIDED BELOW FOR UNRECOGNIZED SECTION Reason for Visit Reason Comments Covid Follow Up test results- neg Reason Comments Results Reason Comments COVID + UNRECOGNIZED CONTENT PROVIDED BELOW FOR UNRECOGNIZED SECTION Miscellaneous Notes Telephone Encounter - Alisha Lawton Ma - 06/08/2020 11:56 AM EDTReceived negative covid test results from [facility] ordered by urgent care Patient was notified Alisha Lawton Ma documented in this encounterTelephone Encounter - Alisha Lawton Ma - 06/08/2020 11:56 AM EDTReceived negative covid test results from [facility] ordered by urgent care Patient was notified Alisha Lawton Ma documented in this encounterTelephone Encounter - Yany uLcero - 06/09/2020 10:59 AM EDTLetter generated and left at it help desk analyst for patient. Yany Lucero APRN.PRESIDENT PRACTICING UROLOGIST elephone Encounter - Jadon Starks Ma - 06/09/2020 10:52 AM EDTPatient notified of results, verbalizes understanding of instructions. Patient requesting a letter in writing to return to work. 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 elephone Encounter - Yany Lucero - 06/09/2020 9:23 AM EDTPlease notify of negative covid test. Continue comfort measures for symptoms as you would for a cold. Any worsening symptoms follow up with PCP or ER. Yany Lucero APRN.PRESIDENT PRACTICING UROLOGIST documented in this encounterTelephone Encounter - Zane Johnson RN - 07/22/2020 11:20 AM ESTPt called, verified by name and birthdate. Pt states he was tested at [facility] on 07-14-2020 and was COVID +. Pt scheduled for follow up visit with PCP on 07-23-2020 Zane Johnson RN documented in this encounterTelephone Encounter - Jadon Martinez Cma - 07/31/2020 2:40 PM ESTNo answer mychart message sent to patient Jadon Martinez Cma elephone Encounter - Jadon Martinez Cma - 07/30/2020 12:49 PM ESTLeft message for patient to return call to office Jadon Martinez Cma Telephone Encounter - Jadon Martinez Cma - 07/30/2020 12:49 PM EST----- Message from Kota PrestonDylan.Noel) TACOS Barba.NOEL sent at 07/30/2020 11:38 AM EST ----- Please inform the patient that their COVID19 test results are negative. No further testing is neededat this time. They should follow up with their PCP if they have additional concerns, questions or are still experiencing symptoms. Kota Barba DNP.NOEL documented in this encounter
--- OUTSIDE RECORDS SUMMARY | 2020-08-21 05:26 | XMS RPT_ITS | CCD ---
:1970 External Reference #:[id number] Author Organization [facility] Care Team Providers Name Role Phone AMY VERDUGO Unavailable Unavailable Yocasta VERDUGO Unavailable Unavailable Unavailable Primary Care Provider Unavailable Allergies Reported Allergen Reaction(s) Severity Date of Onset Location LORazepam Translations: [ GI Upset 06-10-2016 - [facility] Other LORAZEPAM] [place] PARoxetine Translations: GI Upset 12-25-2015 - [facility] Other [ PAROXETINE HCL] Harmonic Analyst ository sertraline Translations: GI Upset 06-10-2016 - [facility] Other [ SERTRALINE] [place] Reposit ory Medications Medication Name Sig Date Prescriber Location Atenolol atenolol (TENORMIN) 50 01-19-2017 [facility] mg tablet Indications: (4419 5) Palpitations Take 1 tablet by mouth once daily. 90 tablet 3 01/19/2017 Active Comment: Take 1 tablet by mouth once daily. atorvastatin atorvastatin (LIPITOR) 01-19-2017 [facility] 80 mg tablet Take 1 (19551) tablet by mouth once daily. 90 tablet 1 01/19/2017 Active Comment: Take 1 tablet by mouth once daily. hydroCHLOROthiazide Hydrochlorothiazide 12.5 02-29-2020 Kota Salcedo mg capsule Indications: (Dnp.Insurance Salesperson) [facility] (25791) Essential hypertension with goal blood pressure less than 140/90 Take 1 capsule by mouth once daily. 30 capsule 1 02/29/2020 Active Comment: Take 1 capsule by mouth once daily. Lisinopril lisinopril (ZESTRIL, 02-29-2020 Kota (Dnp.Insurance Salesperson) [facility] PRINIVIL) 10 mg tablet Blaz (4419 5) Indications: Essential hypertension with goal blood pressure less than 140/90 Take 1 tablet by mouth once daily. 30 tablet 1 02/29/2020 Active Comment: Take 1 tablet by mouth once daily. Problems Active Problems Category Problem Name Status Date Location Anxiety disorders Agoraphobia Active 01-24-2015 - [facility] (89126) Disorders of lipid Mixed hyperlipidemia Active 06-28-2014 [facility] metabolism (71896) Essential hypertension Essential hypertension Active 06-28-20 - [facility] (62112) Other liver diseases Steatosis of liver Active 03-28-2016 [facility] (47871) Substance-related Smoker Active 07-10-2016 - [facility] disorders (72868) Unclassified Unknown / UNK(Unknown) Active 07-02-2017 - [facility] (67429) Unclassified Patient encounter status Active 06-28-2014 - [facility] (42643) Past or Other Problems Category Problem Name Status Date Location Cardiac dysrhythmias Palpitations Completed 06-28-2014 - [facility] (74102) Other and unspecified Neurofibroma Completed 08-13-2014 [facility] (87454) Other screening for Liver function tests Completed 03-28-2016 - [facility] suspected conditions abnormal (73093) (not mental disorders or infectious disease) Residual codes; Current drinker Completed 07-10-2016 - [facility] unclassified (89200) Spondylosis; Low back pain Completed 07-03-2011 - [facility] ic intervertebral disc (05906) disorders; other back problems Results Result Name Value Range Unit Interpretation Flag Date Location [facility] on 2020-07-30 [facility] Telephone (FAMPWS) Normal 07-30-2020 [facility] JASON MOORE ([id number]) 1970 [place] [facility] Date Time Provider Department (28600) 07/30/20 KOTA BARBA ([facility]) FAMPWS During your visit today, we recorded the following informati on about you: Jadon Martinez Cma 07/30/2020 12:49 PM Signed ----- Message from Kota (Dylan.Noel) BALBINA Barba HOSTAGE NEGOTIATOR sent at 07/30/2020 11:38 AM EST ----- Please inform the patient that their COVID19 test results ar e negative. No further testing is needed at this time. They should follow up with their PCP if they have additional concerns, questions or are still experiencing symptoms. Kota Barba DNP.CNP Jadon Martinez [facility] 07/30/2020 12:51 PM Signed Left message for patient to return call to office [facility] 07/31/2020 2:41 PM Signed No answer mychart message sent to patient Jadon Martinez [facility] Allergies As of Date: 07/30/2020 Noted Allergy [...] 07/31/20 progress on 2020-06 PROGRESS HNO ID: [id number] Normal 07-23-2020 [facility] Author: Kota (Dnp.Noel) JOSEE Barba [place] (11227) Service: ? Author Type: Nurse Practitioner Type: [...] agrees to the visit: Yes Patient Location: [place] Chief Complaint Patient presents with: Covid19 Concern SUBJECTIVE: Jason Moore is an 49 year old who presents with an illness that began 10 day(s) ago and are improving since that time. Reports: Seen at [facility] emergency room on July 15 for Covid-like symptoms. Had Covid symptoms that started on . Was treated at the emergency room at [facility] and tested positive for Covid. He was [...] ICD9: 079.89, ICD10: U07.1 Tested positive at [facility] Symptoms are resolving/improving Needs confirmatory test to return to work - Off quarantine N ovember 25 He has been fever free for greater than 24 hours. Lab test ordered for [facility] to be comple alexandrea there. Orders faxed by nursing staff. Patient will be informed of test results once returned. Kota Barba DNP.LINOTYPIST This note was completed with Lionseek dictation software. Note was reviewed for accuracy. There may be minor misspellings or gr ammar miscues with Lionseek Dictation. [facility] [address] [place], [place] [address] Total appointment time on virtual with patient = 12 minutes SIGNATURE: Kota Barba DNP.LINOTYPIST DATE: July 23, 2020 cnpn on 2020-07-22 CNPN Telephone (FAMPWS) Normal 07-22-[address] [place] [facility] JASON MOORE ([id number]) 1970 [facility] Date Time Provider Department (68531) 07/22/20 KOTA BARBA (DNP.LINOTYPIST) FAMPWS During your visit today, we recorded the following informati on about you: Zane Johnson RN 07/22/2020 11:25 AM Signed Pt called, verified by name and birthdate. Pt states h e was tested at [facility] on 07-14-2020 and was COVID +. [...] on 2020-06-09 CNPN Telephone (UCWSTR) Normal 06-09-2020 [place] JASON Phillips ([id number]) 1970 [facility] Date Time Provider Department (37533) 06/09/20 YANY LUCERO UCWSTR During your visit today, we recorded the following informati on about you: Yany Lucero APRN.CNP 06/09/2020 9:23 AM Signed Please notify of negative covid test. Continue comfort measures for symptoms as you would for a cold. Any worsening symptoms follow up [facility] PCP or ER. JOSEE Chicas Ma 06/09/2020 10:54 AM Signed Patient notified of results, verbalizes understanding of instructions. Patient requesting a letter in [facility] to return to work. 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 Yany Lucero APRN.CNP 06/09/2020 10:59 AM Signed Letter 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 Yany Lucero APRN.CNP Allergies As [...] on 2020-06-09 [facility] Letter Text Normal 06-09-2020 [facility] (05486) cnpn on 2020-06-08 CNPN Telephone (FAMPWS) Normal 06-08-2020 [facility] JASON MOORE ([id number]) 1970 [facility] Time Provider Department (18797) 06/08/20 [facility]RG[facility]ARE FAMPWS During your visit today, we recorded the following informati on about you: Alisha Lawton Ma 06/08/2020 11:58 AM Signed Received negative covid test results from [facility] ordered by [facility] ent care Patient was notified Alisha Lawton Ma Allergies As of Date: 06/08/2020 Noted Allergy Reaction ATIVAN (LORAZEPAM) 06/10/2016 8 - GI Upset PAXIL (PAROXETINE HCL) 12/25/2015 8 - GI Upset Comments: diarrhea ZOLOFT (SERTRALINE) 06/10/2016 8 - GI Upset Date Reviewed: 06/05/2020 Reviewed by: Oksana Sears LPN - Fully Assessed Reason for Visit: Covid Follow Up [8992] Cmt: test results- neg Prescriptions as of [...] 0 progress on 2020-05 PROGRESS HNO ID: [id number] Normal 06-05-2020 [facility] Author: Ronit Morin) [facility] (06217[facility] Service: ? Author Type: Nurse Practitioner Type: [...] diagnosis) - [facility] Advised self-isolation of patient for [...] 2020-06-05 CNOV Office Visit (UCWSTR) Normal 06-05-[address] [place] [address] [facility] JASON MOORE ([id number]) 1970 [facility] Time Provider Department (08833) 06/05/20 8:45 AM RONIT GHOSH (LINOTYPIST) WSTR During your visit today, we recorded [...] diagnosis) - 2019 CORONAVIRUS- test ordered at [facility] Advised self-isolation of patient fo r 10 [...] expected course of illness . Ronit Ghosh APRN.LINOTYPIST Jason Moore appears to have COVID-19 infection [...] diagnosis) - 2018 CORONAVIRUS- test ordered at [facility]. Advised self-isolation of patient fo r [...] is a safe and effective decongestant 3. Isabela [place]al [place] may offer relief of nasal and head [...] hypertension [I10] Order(s):2019 CORONAVIRUS [SQCOVID] Order #: [id number] [facility] 2019 CORONAVIRUS [SQCOVID] Order #: [id number] Prescriptions as of 06/05/2020 Sig: HYDROCHLOROTHIAZIDE 12.5 [...] diagnosis) - 2019 [facility] Advised self-isolation of patient for [...] expected course of illness . Ronit Ghosh APRN.LINOTYPIST Separate yourself from other people in your [...] is a safe and effective decongestant 3. Isabela Nasal [place] may offer relief of nasal and head [...] on 2020-03-13 NUSRAT Telephone (FAMPWS) Normal 03-13-[address] [place] [facility] JASON MOORE ([id number]) 1970 [place] [facility] Date Time Provider Department (75730) 03/13/20 [facility]OLI[facility] During your visit today, we recorded the following informati on about you: Kota Barba DNP.NOEL, RELATIONSHIP COUNSELOR.NOEL 03/13/2020 9:14 AM Signed Team - He had a small amount of protein in his urine. Lara pizano have him repeat this in 1 week. ASSESSMENT/PLAN: 1. Proteinuria, unspecified type - ICD9: 791.0, ICD10: R80.9 Repeat in 1 week - URINALYSIS, WITH MICROSCOPIC Kota Barba DNP.CNP This note was completed with [employer] software. Note was reviewed for accuracy. There may be minor misspellings or gramm ar miscues with Lionseek Dictation. [place] [id number] Elle Salazar CMA, MA 03/13/2020 9:41 AM Signed Detailed message left for patient. Elle Salazar CMA Allergies As of Date: 03/13/2020 Noted Allergy Reaction ATIVAN (LORAZEPAM) 06/10/2016 8 - GI Upset PAXIL (PAROXETINE HCL) 12/25/2015 8 - GI Upset Comments: diarrhea ZOLOFT (SERTRALINE) 06/10/2016 8 - GI Upset Date Reviewed: 02/29/2020 Reviewed by: Kota (Dylan.Insurance Salesperson) JOSEE Barba - Fully Assesse d Reason for Visit: Results [95] Primary Visit Diagnosis:Proteinuria, unspecified type [R80.9 ] Order(s):URINALYSIS, WITH MICROSCOPIC [SQUAWMIC] Order #: [id number] FUTURE Prescriptions as of 03/13/2020 Sig: HYDROCHLOROTHIAZIDE [...] on 03/13/20 NUSRAT Telephone (FAMPWS) Normal 03-13-[address] [place] [facility] JASON MOORE ([id number]) 1970 [place] [facility] Date Time Provider Department (51615) 03/13/20 NOPCP (HISTORICAL) FAMPWS During your visit [...] 2020-03-12 Bilirubin, Urine Negative Negative Normal 03-12-2020 [facility] (90027) Comment: Performed By: #### UAWMIC ## ##[facility] [place], [place] [phone] Clarity (U) Clear Clear Normal 03-12-2020 [facility] (40131) Comment: Performed By: #### UAWMIC ## ##[facility] [id number] [facility] [place] [phone] Color (U) Yellow Yellow Normal 03-12-2020 [facility] (59736) Comment: Performed By: #### UAWMIC ## ##[place] [address] [place], [place] [phone] Comments SEE COMMENT Normal 03-12-2020 [facility] (75405) Comment: Result Comment: N/A Performed By: #### UAWMIC ## ##[place] [address] [place], [place] [phone] Glucose Ql (U) Negative Negative Normal 03-12-2020 [facility] (51582) Comment: Performed By: #### UAWMIC ## ##[place] [address] [place], [place] [phone] Hemoglobin/Blood,Ur Negative Negative Normal 03-12-2020 [facility] (88110) Comment: Performed By: #### UAWMIC ## ##[place] [address] [place], [place] [phone] Ketones Ql (U) Negative Negative Normal 03-12-2020 [facility] (10123) Comment: Performed By: #### UAWMIC ## ##[place] [address] [place], [place] [phone] Leukest Negative Negative Normal 03-12-2020 [facility] (39702) Comment: Performed By: #### UAWMIC ## ##[place] [address] [place], [place] [phone] Nitrite Ql (U) Negative Negative Normal 03-12-2020 [facility] (40418) Comment: Performed By: #### UAWMIC ## ##[place] [address] [place], [place] [phone] pH (Bld) 6.0 5.0-8.0 Normal 03-12-2020 [facility] (65051) Comment: Performed By: #### UAWMIC ## ##[facility] [place], [place] [phone] Protein (U) 2+ Negative Critically abnormal 03-12-[address] [facility] [Mass/Vol] [place] (17693) Comment: Performed By: #### UAWMIC ## ##[facility] [place], [place] [phone] RBC (U) [#/Vol] 0-3 0-3 Normal 03-12-2020 [facility] (18656) Comment: Performed By: #### UAWMIC ## ##[place] [address] [place], [place] [phone] Specific [place], Ur 1.023 1.005-1.030 Normal 020 [facility] (76478) Comment: Performed By: #### UAWMIC ## ##[place] [address] [place], [place] [phone] Urine Andi Comment SEE COMMENT Normal 03-12-2020 [facility] (20976) Comment: Result Comment: N/A Performed By: #### UAWMIC ## ##[place] [address] [place], [place] [phone] Urobilinogen Qn (U) 1+ Negative E.U./dL Critically 0 [facility] (32496) Comment: Performed By: #### UAWMIC ## ##[place] [address] [place], [place] [phone] WBC (Bld) [#/Vol] 0-5 0-5 Normal 03-12-2020 C [facility] (89336) Comment: Performed By: #### UAWMIC ## ##[facility] [place], [place] [phone] lipid panel, basic on 2020-03-12 Cholesterol [Mass/Vol] 265 <200 mg/dL High 020 [facility] (72485) Comment: Result Comment: <200 mg/dL, Desirable 200-239 mg/dL, Borderline hi gh >239 mg/dL, High Performed By: #### HIV12C, C BCDIF, CMP, LIPB, HBA1C ####[facility] [place], [place] [phone] Cholesterol in HDL 53 >39 mg/dL Normal 03-12-2020 [facility] [Mass/Vol] (29263) Comment: Result Comment: 40-59 mg/dL, Acceptable >59 mg/dL, High: Negative ri sk factor for coronary heart disease <40 mg/dL, Low: Positive ris k factor for coronary heart disease Performed By: #### HIV12C, C BCDIF, CMP, LIPB, HBA1C ####[facility] [place], [place] [phone] Cholesterol in LDL 172 <100 mg/dL High 03-12-2020 [facility] [Mass/Vol] (82263) Comment: Result Comment: <100 mg/dL, Optimal 100-129 mg/dL, Near optimal/ above optimal 130-159 mg/dL, Borderline hi gh 160-189 mg/dL, High >189 mg/dL, Very high Secondary prevention optimal LDL Cholesterol levels are recommended to be < 70 mg/dL Performed By: #### HIV12C, C BCDIF, CMP, LIPB, HBA1C ####[facility] [address] levelS[place], [place] [phone] Fasting Time 12 hrs Normal 03-12-2020 [facility] (67847) Comment: Performed By: #### HIV12C, C BCDIF, CMP, LIPB, HBA1C ####[facility] [place], [place] [phone] LDL:HDL Ratio 3.25 <2.54 High 03-12-2020 [facility] (54659) Comment: Result Comment: Reference: 1. National Cholesterol Educ ation Program ATP III Guideline At-A-Glance Quick Desk Reference: National Heart, Lung, and Blood [place]. National Institutes of Health. 2001: NIH Publication No. 01-3305. 2. An International Atherosc lerosis Society position paper: global recommendations for the management of dyslipidemia: executive summary, Atherosclerosis. 2014: 232(2):410-413. Performed By: #### HIV12C, C BCDIF, CMP, LIPB, HBA1C ####[facility] [place]Lau[place] [phone] Non HDL Cholesterol 212 <130 mg/dL High 03-12-2020 [facility] (68188) Comment: Result Comment: <130 mg/dL, Optimal 130-159 mg/dL, Near optimal/ above optimal 160-189 mg/dL, Borderline hi gh 190-219 mg/dL, High >219 mg/dL, Very high Secondary prevention optimal non HDL Cholesterol levels are recommended to be < 100 mg/dL Performed By: #### HIV12C, C BCDIF, CMP, LIPB, HBA1C ####[facility] [place] [phone] TC:HDL Ratio 5.00 <5.10 Normal 03-12-2020 [facility] (74822) Comment: Performed By: #### HIV12C, C BCDIF, CMP, LIPB, HBA1C ####[facility] [place] [phone] Triglyceride [Mass/Vol] 198 <150 mg/dL High 2019 [facility] (15386) Comment: Result Comment: <150 mg/dL, Normal 150-199 mg/dL, Borderline hi gh 200-499 mg/dL, High >499 mg/dL, Very high Performed By: #### HIV12C, C BCDIF, CMP, LIPB, HBA1C ####[facility] [address] levelandMatthew [place] [phone] VLDL Cholesterol 40 <30 mg/dL High 03-12-2020 [facility] (22158) Comment: Performed By: #### HIV12C, C BCDIF, CMP, LIPB, HBA1C ####[facility] levelandMatthew [place] [phone] [id number] ag +hiv12 ab on 2020-03-12 HIV 12 Ag/Ab Non Reactive Non Reactive Normal 03-12-2020 [facility] (31886) Comment: Performed By: #### HIV12C, C BCDIF, CMP, LIPB, HBA1C ####[place] [address] [place], [place] [phone] HIV-1/2 Antibody Normal 03-12-2020 [facility] (54552) Comment: Result Comment: Test Not Ind icated Negative No evidence of HIV-1 or HIV- 2 infection. Should recent infection be suspected, repeat testing may be considered 2-3 weeks after this draw. HIV Information: [place] Rev. C ode 3701.243(E): This information has [...] #### HIV12C, C BCDIF, CMP, LIPB, HBA1C ####[place] [address] [place], [place] [phone] hemoglobin a1c on 2 HbA1c (Bld) [Mass fraction] 5.4 4.3-5.6 % Normal [facility] (88621) Comment: Result Comment: [place] Jeremiah betes Association guidelines indicate that patients with HgbA1c in the range 5.7-6.4% are at increased risk for development of diabetes, and intervention by lifestyle modification may be beneficial. HgbA1c greater o r equal to 6.5% is considered diagnostic of diabetes. Performed By: #### HIV12C, C BCDIF, CMP, LIPB, HBA1C ####[facility], [place] [phone] HbA1c (Bld) [Mass fraction] 108 mg/dL Normal [facility] (51696) Comment: Result Comment: eAG: (Estima alexandrea average glucose) is a calculated value from HgbA1c and is chain sales representative of the average blood glucose level in the last 2-3 month period. Performed By: #### HIV12C, C BCDIF, CMP, LIPB, HBA1C ####[place] [address] [place], [place] [phone] comp metabolic panel on 2020-03-12 Albumin [Mass/Vol] 4.4 3.9-4.9 g/dL Normal 03-12-2020 [facility] (59693) Comment: Performed By: #### HIV12C, C BCDIF, CMP, LIPB, HBA1C ####[place] [address] [place], [place] [phone] ALP [Catalytic activity/Vol] 73 38-113 U/L Normal 0 03-12-2020 [facility] (44406) Comment: Performed By: #### HIV12C, C BCDIF, CMP, LIPB, HBA1C ####[place] [address] [place] [phone] ALT [Catalytic activity/Vol] 59 10-54 U/L High 0 03-12-2020 [facility] (66922) Comment: Performed By: #### HIV12C, C BCDIF, CMP, LIPB, HBA1C ####[place] [address] [place], [place] [phone] Anion gap [Moles/Vol] 12 9-18 mmol/L Normal 03-12-20 [facility] (76379) Comment: Performed By: #### HIV12C, C BCDIF, CMP, LIPB, HBA1C ####[place] [address] [place], [place] [phone] AST [Catalytic activity/Vol] 49 14-40 U/L High 0 03-12-2020 [facility] (18829) Comment: Performed By: #### HIV12C, C BCDIF, CMP, LIPB, HBA1C ####[facility] [place], [place] [phone] Bilirubin [Mass/Vol] 1.0 0.2-1.3 mg/dL Normal 0 [facility] (58356) Comment: Performed By: #### HIV12C, C BCDIF, CMP, LIPB, HBA1C ####[place] [address] [place]and[place] [phone] Calcium [Mass/Vol] 9.7 8.5-10.2 mg/dL Normal 03-12-2020 [facility] (87893) Comment: Performed By: #### HIV12C, C BCDIF, CMP, LIPB, HBA1C ####[place] [address] [place] [phone] Chloride [Moles/Vol] 102 97-105 mmol/L Normal 0 [facility] (35831) Comment: Performed By: #### HIV12C, C BCDIF, CMP, LIPB, HBA1C ####[place] [address] [place], [place] [phone] CO2 [Moles/Vol] 24 22-30 mmol/L Normal 03-12-2020 [facility] (14659) Comment: Performed By: #### HIV12C, C BCDIF, CMP, LIPB, HBA1C ####[place] [address] [place] [phone] Creatinine [Mass/Vol] 1.09 0.73-1.22 mg/dL Normal 03-12-20 20 [facility] (59705) Comment: Performed By: #### HIV12C, C BCDIF, CMP, LIPB, HBA1C ####[place] [address] [place], [place] [phone] eGFR- Amer. >60 Normal 03-12-2020 [facility] (56236) Comment: Performed By: #### HIV12C, C BCDIF, CMP, LIPB, HBA1C ####[facility] [address] [place], [place] [phone] GFR/1.73 sq M predicted >60 mL/min/{1.73_m2} Normal 03-12-2020 [facility] among non-blacks MDRD [place] (88346) (S/P/Bld) [Vol rate/Area] Comment: Result Comment: eGFR [...] #### HIV12C, C BCDIF, CMP, LIPB, HBA1C ####[facility] [address] [place], [place] [phone] Glucose [Mass/Vol] 99 74-99 mg/dL Normal 03-12-2020 [facility] (86887) Comment: Result Comment: The [place] Diabetes Association (ADA) provides guidance for cutoff [...] for diagnosis of diabetes. Reference: Standards of [facility] Care in Diabetes 2016, [place] Diabetes Association. Diabetes Care. 2016.39(Suppl 1). Performed By: #### HIV12C, C BCDIF, CMP, LIPB, HBA1C ####[facility] [address], [place] [phone] Potassium [Moles/Vol] 3.7 3.7-5.1 mmol/L Normal 03-12-20 [facility] (26750) Comment: Performed By: #### HIV12C, C BCDIF, CMP, LIPB, HBA1C ####[facility] [place], [place] [phone] Protein [Mass/Vol] 7.1 6.3-8.0 g/dL Normal 03-12-2020 [facility] [facility] ([address]69) Comment: Performed By: #### HIV12C, C BCDIF, CMP, LIPB, HBA1C ####[facility] [place] [phone] Sodium [Moles/Vol] 138 136-144 mmol/L Normal 03-12-2020 [facility] (39988) Comment: Performed By: #### HIV12C, C BCDIF, CMP, LIPB, HBA1C ####[facility] [place] [phone] Urea nitrogen [Mass/Vol] 9 9-24 mg/dL Normal 03-12 [facility] (84367) Comment: Performed By: #### HIV12C, C BCDIF, CMP, LIPB, HBA1C ####[place] [address] [place] [phone] cbc and differential on 2020-03-12 Abs Baso 0.05 <0.11 k/uL Normal 03-12-2020 [facility] (02955) Comment: Performed By: #### HIV12C, C BCDIF, CMP, LIPB, HBA1C ####[facility] [place] [phone] Abs [place] 0.51 <0.87 k/uL Normal 03-12-2020 [facility] (40113) Comment: Performed By: #### HIV12C, C BCDIF, CMP, LIPB, HBA1C ####[facility] [place], [place] [phone] Abs Neut 4.11 1.45-7.50 k/uL Normal 03-12-2020 [facility] (64674) Comment: Performed By: #### HIV12C, C BCDIF, CMP, LIPB, HBA1C ####[facility] [place], [place] [phone] Absolute nRBC <0.01 <0.01 Normal 03-12-2020 [facility] (31706) Comment: Performed By: #### HIV12C, C BCDIF, CMP, LIPB, HBA1C ####[facility] [place], [place] [phone] Basophils/100 WBC (Bld) 0.8 % Normal 2019 [facility] (77128) Comment: Performed By: #### HIV12C, C BCDIF, CMP, LIPB, HBA1C ####[facility] [place], [place] [phone] DTYPE Auto Diff Normal 03-12-2020 [facility] (28365) Comment: Performed By: #### HIV12C, C BCDIF, CMP, LIPB, HBA1C ####[facility] [place], [place] [phone] Eosinophils (Bld) [#/Vol] 0.05 <0.46 k/uL Normal 02-27 [facility] (39309) Comment: Performed By: #### HIV12C, C BCDIF, CMP, LIPB, HBA1C ####[facility] [place], [place] [phone] Eosinophils/100 WBC (Bld) 0.8 % Normal 02-27 [facility] (90726) Comment: Performed By: #### HIV12C, C BCDIF, CMP, LIPB, HBA1C ####[facility] [place], [place] [phone] Erythrocyte distribution 11.6 11.5-15.0 % Normal 03-12 [facility] width (RBC) [Ratio] [place] (10451) Comment: Performed By: #### HIV12C, C BCDIF, CMP, LIPB, HBA1C ####[facility] [address] [place], [place] [phone] Hematocrit (Bld) [Volume 45.4 39.0-51.0 % Normal 03-12 [facility] fraction] [place] (53150) Comment: Performed By: #### HIV12C, C BCDIF, CMP, LIPB, HBA1C ####[facility] [place] [phone] Hemoglobin (Bld) 15.6 13.0-17.0 g/dL Normal 03-12-2020 [facility] [Mass/Vol] [place] (87459) Comment: Performed By: #### HIV12C, C BCDIF, CMP, LIPB, HBA1C ####[facility] [address] [place] [phone] Lymphocytes (Bld) [#/Vol] 1.61 1.00-4.00 k/uL Normal 02-27 [facility] (08529) Comment: Performed By: #### HIV12C, C BCDIF, CMP, LIPB, HBA1C ####[facility] [address] [place] [phone] Lymphocytes/100 WBC (Bld) 25.4 % Normal 02-27 [facility] (32806) Comment: Performed By: #### HIV12C, C BCDIF, CMP, LIPB, HBA1C ####[facility] [address] [place], [place] [phone] MCH (RBC) [Entitic mass] 33.2 26.0-34.0 pG Normal 03-12 [facility] (81232) Comment: Performed By: #### HIV12C, C BCDIF, CMP, LIPB, HBA1C ####[facility] [place], [place] [phone] MCHC (RBC) [Mass/Vol] 34.4 30.5-36.0 g/dL Normal 03-12-20 [facility] (45184) Comment: Performed By: #### HIV12C, C BCDIF, CMP, LIPB, HBA1C ####[facility] [place], [place] [phone] MCV (RBC) [Entitic vol] 96.6 80.0-100.0 fL Normal 03-12 [facility] (54784) Comment: Performed By: #### HIV12C, C BCDIF, CMP, LIPB, HBA1C ####[place] [address] [place], [place] [phone] Monocytes/100 WBC (Bld) 8.1 % Normal 2019 [facility] (82543) Comment: Performed By: #### HIV12C, C BCDIF, CMP, LIPB, HBA1C ####[facility] [place], [place] [phone] Neutrophils/100 WBC (Bld) 64.9 % Normal 02-27 [facility] (45896) Comment: Performed By: #### HIV12C, C BCDIF, CMP, LIPB, HBA1C ####[facility] [place], [place] [phone] NRBCs 0.0 0 /100 WBC Normal 03-12-2020 [facility] (00489) Comment: Performed By: #### HIV12C, C BCDIF, CMP, LIPB, HBA1C ####[facility] [place], [place] [phone] Platelet mean volume 12.1 9.0-12.[address] [facility] (Bld) [Entitic vol] [place] (35664) Comment: Performed By: #### HIV12C, C BCDIF, CMP, LIPB, HBA1C ####[facility] [address] [place], [place] [phone] Platelets (Bld) [#/Vol] 184 150-400 k/uL Normal 2019 [facility] (45242) Comment: Performed By: #### HIV12C, C BCDIF, CMP, LIPB, HBA1C ####[facility] [address] [place], [place] [phone] RBC (Bld) [#/Vol] 4.70 4.20-6.00 m/uL Normal 03-12-2020 [facility] (32231) Comment: Performed By: #### HIV12C, C BCDIF, CMP, LIPB, HBA1C ####[facility] [address] [place], [place] [phone] WBC (Bld) [#/Vol] 6.33 3.70-11.00 k/uL Normal 03-12-2020 [facility] (23560) Comment: Performed By: #### HIV12C, C BCDIF, CMP, LIPB, HBA1C ####[facility] [address] [place], [place] [phone] progress on 2020-02 PROGRESS HNO ID: [id number] Normal 02-29-2020 [facility] Author: Kota (Dylan.Kai Barba APRN.[facility] ([id number]) Service: ? Author Type: Nurse Practitioner Type: Progress Notes Filed: 02/29/2020 5:02 PM Note Text: Chief Complaint Patient presents with: Physical HPI Jason Moore is a 49 year old male who presents here today f or a established physical exam. Pres[facility] as an established patient of [...] allergy list reviewed, reconciled and updated 02/29/2020 [facility] Gastrointestinal Endoscopy Patient Name: Jason Moore Procedure [...] cancer prog chaz (Dr Woods) ? [place]. ? - Patient has a contact number [...] Abs Lymph 1.0 - 4.0 k/uL 2.28 [place]% 4 - 12 % 6.6 Abs [place] 0 - 0.8 k/uL 0.62 Eosin% 0 - 4 % 1.1 Abs Eosin 0 - 0.4 k/uL 0.10 Baso% 0 - 1 % 0.4 Abs Baso 0 - 0.2 k/uL 0.04 Immature Gran 0 - 1.9 % 0.40 Color Yellow Yellow Clarity Clear Clear Specific Sula, Ur 1.005 - 1.030 1.012 1.020 pH, [...] GRAM-5.86 G CHAZ SOLUTION - INSERT IV ([place]) - IV DISCONTINUE 9. Tobacco use disorder - ICD9: 305.1, ICD10: F17.200 - Will address at follow up appointment Kota Barba DNP.LINOTYPIST This note was completed with Lionseek dictation software. Note was reviewed for accuracy. There may be minor misspellings or gr ammar miscues with Lionseek Dictation. [place] [address] [place], [place] [address] cnov on 2020-02-29 CNOV Office Visit (FAMPWS) Normal 02-29-[address] [place] [address] JASON Phillips ([id number]) 1970 [facility] Date Time Provider Department ([id number]) 02/29/20 3:20 PM KOTA BARBA (DYLAN.NOEL) DEMETRA During your visit today, we recorded the following informati on about you: Temperature Pulse Respiration Blood pressure 98.7 degrees 95/minute 16/minute 156/100 Weight 110.7 kg Kota Barba DNP.NOEL, RELATIONSHIP COUNSELOR.NOEL 02/29/2020 5:02 PM Signed Chief Complaint Patient presents with: Physical HPI Jason Moore is a 49 year old male who presents here t magdi for a established physical exam. Presents to the [facility] as an established patient of Dr. Hammond, this is a new patient to me. No recent [facility] care visits, ER visits, or hospitalizations. [...] normal. Gait is steady with normal s [facility] Health Maintenance List ANNUAL PCP TEAM CHRONIC [...] list reviewed, reconciled and updated 02/29/2020 Adrián [facility] Gastrointestinal Endoscopy Patient Name: Jason Moore [...] cancer prog chaz (Dr Woods) ? [place]. ? - Patient has a contact number [...] Abs Lymph 1.0 - 4.0 k/uL 2.28 [place]% 4 - 12 % 6.6 Abs [place] 0 - 0.8 k/uL 0.62 Eosin% 0 - 4 % 1.1 Abs Eosin 0 - 0.4 k/uL 0.10 Baso% 0 - 1 % 0.4 Abs Baso 0 - 0.2 k/uL 0.04 Immature Gran 0 - 1.9 % 0.40 Color Yellow Yellow Clarity Clear Clear Specific [place], Ur 1.005 - 1.030 1.012 1.020 pH, [...] address at follow up appointment Kota Barba DNP.LINOTYPIST This note was completed with Dragon 360 dictatio n software. Note was reviewed for accuracy. There may be minor misspellings or gramm ar miscues with Lionseek Dictation. [facility] [address] [place] [phone] Kota Barba DNP.NOEL, JOSEE 02/29/2020 4:23 PM [...] If you do not have a responsible courtesy driver (family member or friend) with you to [...] the prescription bowel preparation solution at your [facility] pharmacy or drugstore pharmacy. 07/2019 Bowel Preparation [...] Upset Date Reviewed: 02/29/2020 Reviewed by: Kota (Dnp.Insurance Salesperson) TACOS Barba.LINOTYPIST - Fully Assesse d Reason for Visit: [...] 1 BottleRfl : 0 INSERT IV ([place]) [3067761] Order #: [id number]: 1 FUTURE IV DISCONTINUE [[id number]] Order #: [id number]: 1 FUTURE INSERT IV ([place]) [[id number]] Order #: [id number]: 1 COMP METABOLIC PANEL [SQCMP] Order #: [id number] FUTURE HGB A1C [IIFQA8B] Order #: [id number] FUTURE URINALYSIS, WITH MICROSCOPIC [SQUAWMIC] Order #: [id number] CBC + DIFF [SQCBCDIF] Order #: [id number] FUTURE LIPID PANEL BASIC [SQLIPB] Order #: [id number] FUTURE HIV 1 2 COMBO(AG/AB),WITH REFLEX TO DIFFERENTIATION [SQHIV12 ] Order #: [id number] FUTURE Hydrochlorothiazide 12.5 mg capsuleTake 1 capsule [...] weeks with Dr. Hammond or Kota Barba DNP.LINOTYPIST Return to the clinic for any worsening [...] take a taxi or bus, or leave [facility] ALONE. If you do not have a responsible courtesy driver (famil y member or friend) with you [...] the prescription bowel preparation solution at your [facility] pharmacy or drugstore pharmacy. 07/2019 Bowel Preparation [...] Text Encounter Status:Closed by KOTA BARBA DNP LINOTYPIST on 02/29/20 cnpn on 2019-12-20 CNPN Telephone (ASWSTR) Normal 12-20-[address] [place] [facility] SARATHJASON ([id number]) 1970 [facility] Date Time Provider Department ([id number]) 12/20/19 NOPCP (HISTORICAL) ASWSTR During your visit [...] 01/16/20 progress on 2019-07 PROGRESS HNO ID: [id number] Normal 08-21-2019 [facility] Author: Lisa Parsons ([id number]) Service: ? Author Type: Safety Sealer Type: Progress Notes Filed: 08/21/2019 11:35 AM Note Text: POPULATION HEALTH HEAD OF HOUSEKEEPING QUICKNOTE Provider Action/FYI: Letter mailed to patient. Patient identified by name and . Lisa Parsons CMA PROGRESS HNO ID: [id number] Normal 08-21-2019 [facility] Author: Lisa Parsons ([id number]) Service: ? Author Type: Safety Sealer Type: Progress Notes Filed: 08/21/2019 11:35 AM Note Text: POPULATION HEALTH HEAD OF HOUSEKEEPING QUICKNOTE Provider Action/FYI: 3rd attempt - Left message for patient to return call #[phone] Mailing letter to patient. Patient identified by name and . Lisa Parsons CMA progress on 2019-07 PROGRESS HNO ID: [id number] Normal 08-18-2019 [facility] Author: Lisa Parsons ([id number]) Service: ? Author Type: Safety Sealer Type: Progress Notes Filed: 08/21/2019 11:35 AM Note Text: POPULATION HEALTH HEAD OF HOUSEKEEPING QUICKNOTE Provider Action/FYI: 2nd attempt - Left message for patient to return call #[phone] Patient identified by name and . Lisa Parsons CINDY progress on 2019-07 PROGRESS HNO ID: [id number] Normal 08-16-2019 [facility] Author: Lisa Parsons [place] ([id number]) Service: ? Author Type: Safety Sealer Type: Progress Notes Filed: 08/21/2019 11:35 AM Note Text: POPULATION [facility] HEAD OF HOUSEKEEPING QUICKNOTE Provider Action/FYI: 1st attempt - MyChart message sent. Patient identified by name and . Lisa Parsons CMA PROGRESS HNO ID: [id number] Normal 08-16-2019 [facility] Author: Lisa Parsons [place] ([id number]) Service: ? Author Type: Safety Sealer Type: Progress Notes Filed: 08/21/2019 11:35 AM [...] CNPTOUTREACH Patient Outreach (FAMPWS) Normal 1 10-17-2018 [place] JASON Phillips ([id number]) 1970 [facility] Date Time Provider Department ([id number]) 08/16/19 LISA PARSONS (CINDY) FAMPWS During your visit today, we recorded the following informati on about you: Lisa Parsons CMA 08/21/2019 11:35 AM Signed [facility] GAP REGISTRY DOCUMENTATION (OUTSIDE TEAMLET) [...] with pcp or n p CINDY Doherty [facility] 08/21/2019 11:35 AM Signed [facility] ASSISTANT TelensiusNOTE Provider Action/FYI: 1st attempt - MyChart message sent. Patient identified by name and . CINDY Doherty [facility] 08/21/2019 11:35 AM Signed [facility] ASSISTANT QUICKNOTE Provider Action/FYI: 2nd attempt - Left message for patient to return call #[phone] Patient identified by name and . CINDY Doherty [facility] 08/21/2019 11:35 AM Signed [facility] ASSISTANT VIGNESHNOTE Provider Action/FYI: 3rd attempt - Left message for patient to return call #[phone] Mailing letter to patient. Patient identified by name and . CINDY Doherty [facility] 08/21/2019 11:35 AM Signed [facility] ASSISTANT TelensiusNOTE Provider Action/FYI: Letter mailed to patient. Patient identified by name and . Lisa Parsnos [facility] Allergies As of Date: 08/16/2019 Noted Allergy [...] 2017-07-06 Reagin antibody Nonreactive Nonreactive Normal 07-06-2017 [facility] (00 000) Comment: Performed By: #### CBCDIF, U A, PT, GBCHEM, GBTSH, MG, RPR ####[facility] Mck62131 [address] [place], [place] [phone] urinalysis on 07-02 Bilirubin (total) Negative Negative mg/dL Normal 07-02-2017 [facility] (97068) Comment: Performed By: #### CBCDIF, U A, PT, GBCHEM, GBTSH, MG, RPR ####[facility] Psz62841 [place], [place] [phone] Comments MICROSCOPIC ANALYSIS NOT Normal 07-02 [facility] DONE ON URINES WITH NEGATIVE (97891) BIOCHEMICAL TESTS Comment: Performed By: #### CBCDIF, U A, PT, GBCHEM, GBTSH, MG, RPR ####[facility] Nmg31654 [place], [place] [phone] Glucose mass conc Negative Negative mg/dL Normal 07-02-2017 [facility] (90341) Comment: Performed By: #### CBCDIF, U A, PT, GBCHEM, GBTSH, MG, RPR ####[facility] Epj42763 [place], [place] [phone] Hemoglobin mass conc Negative Negative g/dL Normal [address] [place] [address] ([facility]) [place] (00 000) Comment: Performed By: #### CBCDIF, U A, PT, GBCHEM, GBTSH, MG, RPR ####[facility] Zaw41888 [place], [place] [phone] Ketone Negative Negative Normal 07-02-2017 [facility] (82294) Comment: Performed By: #### CBCDIF, U A, PT, GBCHEM, GBTSH, MG, RPR ####[facility] Wdw61515 [place], [place] [phone] Leukest Negative Negative Normal 07-02-2017 [facility] (50959) Comment: Performed By: #### CBCDIF, U A, PT, GBCHEM, GBTSH, MG, RPR ####[facility] Dcm31969 [place], [place] [phone] Protein Negative Negative g/dL Normal 07-02-2017 [facility] (54420) Comment: Performed By: #### CBCDIF, U A, PT, GBCHEM, GBTSH, MG, RPR ####[facility] [address] [place] [address] [place], [place] [phone] Urine Spec Sula 1.012 1.005-1.030 Normal 7 [facility] (40414) Comment: Performed By: #### CBCDIF, U A, PT, GBCHEM, GBTSH, MG, RPR ####[facility] Uvj[address] [place], [place] [phone] Urine, clarity Clear Clear Normal 07-02-2017 [facility] (89881) Comment: Performed By: #### CBCDIF, U A, PT, GBCHEM, GBTSH, MG, RPR ####[facility] Zxd75998 [facility] [place], [place] [phone] Urine, color Yellow Yellow Normal 07-02-2017 [facility] (00725) Comment: Performed By: #### CBCDIF, U A, PT, GBCHEM, GBTSH, MG, RPR ####[facility] Fdv09288 [facility] [place], [place] [phone] Urine, nitrite presence Negative Negative Normal 2016 [facility] (88963) Comment: Performed By: #### CBCDIF, U A, PT, GBCHEM, GBTSH, MG, RPR ####[facility] Oju26813 [place], [place] [phone] Urine, pH 6.0 5-7 [pH] Normal 07-02-2017 [facility] (84790) Comment: Performed By: #### CBCDIF, U A, PT, GBCHEM, GBTSH, MG, RPR ####[facility] Fzn15331 [place], [place] [phone] Urine, urobilinogen <2.0 0.0-1.0 Normal 07-02-2017 [facility] (71591) Comment: Performed By: #### CBCDIF, U A, PT, GBCHEM, GBTSH, MG, RPR ####[facility] Ywb05334 [place], [place] [phone] protime on INR Coag RelTime (Bld) 1.0 0.6-1.1 {INR} Normal 017 [facility] (60673) Comment: Result Comment: The PT/INR c an [...] PT, GBCHEM, GBTSH, MG, RPR ####[facility] Jmc04661 [place], [place] [phone] PT Sec 12.8 11.8-14.1 sec Normal 07-02-2017 [facility] (43266) Comment: Performed By: #### CBCDIF, U A, PT, GBCHEM, GBTSH, MG, RPR ####[facility] Nfu62912 [place], [place] [phone] magnesium on 2016-08 Magnesium 1.8 1.3-2.3 mg/dL Normal 07-02-2017 [facility] (30522) Comment: Performed By: #### CBCDIF, U A, PT, GBCHEM, GBTSH, MG, RPR ####[facility] Qaf08237 [place], [place] [phone] [facility] tsh on 16-07-03 Thyroid stimulating 5.060 0.465-4.680 uU/mL High 07-02-20 [facility] (72964) Comment: Performed By: #### CBCDIF, U A, PT, GBCHEM, GBTSH, MG, RPR ####[facility] Rjl36714 [place], [place] [phone] lola chem prof on 2017-07-02 Alanine aminotransferase (ALT) 71 21-72 U/L Normal 07-02-2017 [facility] (00 000) Comment: Performed By: #### CBCDIF, U A, PT, GBCHEM, GBTSH, MG, RPR ####[facility] Sod09323 [place], [place] [phone] Albumin 4.5 3.5-5.0 g/dL Normal 07-02-2017 [facility] (18575) Comment: Performed By: #### CBCDIF, U A, PT, GBCHEM, GBTSH, MG, RPR ####[facility] Hnm15276 [place] [phone] Alkaline Phos 67 38-125 U/L Normal 07-02-2017 [facility] (95681) Comment: Performed By: #### CBCDIF, U A, PT, GBCHEM, GBTSH, MG, RPR ####[facility] Hgl89809 [place] [phone] Amylase 69 30-110 U/L Normal 07-02-2017 [facility] (89909) Comment: Performed By: #### CBCDIF, U A, PT, GBCHEM, GBTSH, MG, RPR ####[facility] Txa64171 [place], [place] [phone] Anion gap 16 0-15 mmol/L High 07-02-2017 [facility] (47380) Comment: Performed By: #### CBCDIF, U A, PT, GBCHEM, GBTSH, MG, RPR ####[facility] Hfy37295 [place], [place] [phone] Aspartate aminotransferase 54 17-59 U/L Normal [facility] [place] (00 000) Comment: Performed By: #### CBCDIF, U A, PT, GBCHEM, GBTSH, MG, RPR ####[facility] Mgq07519 [place], [place] [phone] Bilirubin Ql (U) 1.6 0.2-1.3 mg/dL High 07-02-2017 [facility] (04960) Comment: Performed By: #### CBCDIF, U A, PT, GBCHEM, GBTSH, MG, RPR ####[facility] Obs98634 [facility] [place] [phone] Calcium 10.0 8.4-10.2 mg/dL Normal 07-02-2017 [facility] (22612) Comment: Performed By: #### CBCDIF, U A, PT, GBCHEM, GBTSH, MG, RPR ####[facility] Leq72126 [place], [place] [phone] Chloride 100 98-107 mmol/L Normal 07-02-2017 [facility] (30797) Comment: Performed By: #### CBCDIF, U A, PT, GBCHEM, GBTSH, MG, RPR ####[facility] Fgx92490 [facility] [place], [place] [phone] Cholesterol 308 100-199 mg/dL High 07-02-2017 [facility] (21890) Comment: Performed By: #### CBCDIF, U A, PT, GBCHEM, GBTSH, MG, RPR ####[facility] Voj80785 [facility] [place] [phone] CO2 25 22-30 mmol/L Normal 07-02-2017 [facility] (94443) Comment: Performed By: #### CBCDIF, U A, PT, GBCHEM, GBTSH, MG, RPR ####[facility] Uii07972 [place], [place] [phone] Creatinine 1.14 0.66-1.25 mg/dL Normal 07-02-2017 [facility] (53336) Comment: Performed By: #### CBCDIF, U A, PT, GBCHEM, GBTSH, MG, RPR ####[facility] Dbg49427 [facility] [place], [place] [phone] eGFR (non-black) >60 >60 mL/min/{1.73_m2} Normal 2016 [facility] (14402) Comment: Performed By: #### CBCDIF, U A, PT, GBCHEM, GBTSH, MG, RPR ####[facility] Xzh08669 [place], [place] [phone] Result Comment: MDRD calcula tion used for eGFR results. GGT 199 15-73 U/L High 07-02-2017 [facility] (58382) Comment: Performed By: #### CBCDIF, U A, PT, GBCHEM, GBTSH, MG, RPR ####[facility] Zce30841 [place], [place] [phone] Glucose mass conc 113 74-106 mg/dL High 07-02-2017 [facility] (56652) Comment: Performed By: #### CBCDIF, U A, PT, GBCHEM, GBTSH, MG, RPR ####[facility] Qtn47185 [facility] [place], [place] [phone] LDH 515 318-618 U/L Normal 07-02-2017 [facility] (68755) Comment: Performed By: #### CBCDIF, U A, PT, GBCHEM, GBTSH, MG, RPR ####[facility] Zkt40243 [place], [place] [phone] Phosphate 2.9 2.5-4.5 mg/dL Normal 07-02-2017 [facility] (22907) Comment: Performed By: #### CBCDIF, U A, PT, GBCHEM, GBTSH, MG, RPR ####[facility] Xnb40369 [place], [place] [phone] Potassium molar conc 3.7 3.5-5.1 mmol/L Normal 7 [facility] (23197) Comment: Performed By: #### CBCDIF, U A, PT, GBCHEM, GBTSH, MG, RPR ####[facility] Yhc17927 [facility] [place] [phone] Protein 7.9 6.2-8.2 g/dL Normal 07-02-2017 [facility] (67322) Comment: Performed By: #### CBCDIF, U A, PT, GBCHEM, GBTSH, MG, RPR ####[facility] [id number] [place], [place] [phone] Sodium 137 137-145 mmol/L Normal 07-02-2017 [facility] ([id number]) Comment: Performed By: #### CBCDIF, U A, PT, GBCHEM, GBTSH, MG, RPR ####[facility] [id number] [place], [place] [phone] Triglyceride 253 35-150 mg/dL High 07-02-2017 [facility] ([id number]) Comment: Performed By: #### CBCDIF, U A, PT, GBCHEM, GBTSH, MG, RPR ####[facility] [id number] [place], [place] [phone] Urate 7.0 3.5-8.5 mg/dL Normal 07-02-2017 [facility] ([id number]) Comment: Performed By: #### CBCDIF, U A, PT, GBCHEM, GBTSH, MG, RPR ####[facility] [id number] [place], [place] [phone] Urea nitrogen 12 9-20 mg/dL Normal 07-02-2017 [facility] ([id number]) Comment: Performed By: #### CBCDIF, U A, PT, GBCHEM, GBTSH, MG, RPR ####[facility] [id number] [place], [place] [phone] cbcdif on 3 Abs Baso 0.04 0-0.2 k/uL Normal 07-02-2017 [facility] ([id number]) Comment: Performed By: #### CBCDIF, U A, PT, GBCHEM, GBTSH, MG, RPR ####[facility] [id number] [place], [place] [phone] Abs [place] 0.62 0-0.8 k/uL Normal 07-02-2017 [facility] ([id number]) Comment: Performed By: #### CBCDIF, U A, PT, GBCHEM, GBTSH, MG, RPR ####[facility] [id number] [place], [place] [phone] Abs Neut 6.33 1.8-7.7 k/uL Normal 07-02-2017 [facility] ([id number]) Comment: Performed By: #### CBCDIF, U A, PT, GBCHEM, GBTSH, MG, RPR ####[facility] [id number] [place], [place] [phone] Basophils/100 WBC Auto (Bld) 0.4 0-1 % Normal 1 09-01-2016 [facility] ([id number]) Comment: Performed By: #### CBCDIF, U A, PT, GBCHEM, GBTSH, MG, RPR ####[facility] [id number] [place], [place] [phone] Eosinophils 0.10 0-0.4 k/uL Normal 07-02-2017 [facility] ([id number]) Comment: Performed By: #### CBCDIF, U A, PT, GBCHEM, GBTSH, MG, RPR ####[facility] [id number] [place], [place] [phone] Eosinophils/100 leukocytes 1.1 0-4 % Normal [facility] ([id number]) Comment: Performed By: #### CBCDIF, U A, PT, GBCHEM, GBTSH, MG, RPR ####[facility] [id number] [place], [place] [phone] Erythrocyte distribution 11.9 11.5-14.5 % Normal 07-02 [facility] ([id number]) Comment: Performed By: #### CBCDIF, U A, PT, GBCHEM, GBTSH, MG, RPR ####[facility] [id number] [place], [place] [phone] Erythrocytes (RBC) 0 0-0.9 /100 WBC Normal 07-02-2017 [facility] ([id number]) Comment: Performed By: #### CBCDIF, U A, PT, GBCHEM, GBTSH, MG, RPR ####[facility] [id number] [facility] [place], [place] [phone] Erythrocytes (RBC) 4.71 4.50-5.90 m/uL Normal 07-02-2017 [facility] ([id number]) Comment: Performed By: #### CBCDIF, U A, PT, GBCHEM, GBTSH, MG, RPR ####[facility] [id number] [facility] [place], [place] [phone] Hematocrit (HCT) 45.1 41.0-53.0 % Normal 07-02-2017 [facility] ([id number]) Comment: Performed By: #### CBCDIF, U A, PT, GBCHEM, GBTSH, MG, RPR ####[facility] [id number] [facility] [place], [place] [phone] Hemoglobin mass conc 15.5 13.5-17.5 g/dL Normal 7 [facility] (Bld) [place] (00 000) Comment: Performed By: #### CBCDIF, U A, PT, GBCHEM, GBTSH, MG, RPR ####[facility] [id number] [facility] [place], [place] [phone] Immature Gran 0.40 0-1.9 % Normal 07-02-2017 [facility] ([id number]) Comment: Performed By: #### CBCDIF, U A, PT, GBCHEM, GBTSH, MG, RPR ####[facility] [id number] [facility] [place], [place] [phone] Lymphocytes 2.28 1.0-4.0 k/uL Normal 07-02-2017 [facility] ([id number]) Comment: Performed By: #### CBCDIF, U A, PT, GBCHEM, GBTSH, MG, RPR ####[facility] [id number] [facility] [place], [place] [phone] Lymphocytes/100 leukocytes 24.2 22-44 % Normal [facility] (32289) Comment: Performed By: #### CBCDIF, U A, PT, GBCHEM, GBTSH, MG, RPR ####[facility] [id number] [facility] [place], [place] [phone] MCH 32.9 26-34 pG Normal 07-02-2017 [facility] ([id number]) Comment: Performed By: #### CBCDIF, U A, PT, GBCHEM, GBTSH, MG, RPR ####[facility] [id number] [place], [place] [phone] MCHC mass conc (RBC) 34.4 31-37 g/dL Normal 7 [facility] ([id number]) Comment: Performed By: #### CBCDIF, U A, PT, GBCHEM, GBTSH, MG, RPR ####[facility] [id number] [facility] [place], [place] [phone] MCV 95.8 80-100 fL Normal 07-02-2017 [facility] ([id number]) Comment: Performed By: #### CBCDIF, U A, PT, GBCHEM, GBTSH, MG, RPR ####[facility] [id number] [facility] [place], [place] [phone] Monocytes/100 leukocytes 6.6 4-12 % Normal 07-02 [facility] (66194) Comment: Performed By: #### CBCDIF, U A, PT, GBCHEM, GBTSH, MG, RPR ####[facility] [id number] [place], [place] [phone] Neutrophils/100 WBC Auto (Bld) 67.3 40-70 % Normal 07-02-2017 [facility] ([id number]) Comment: Performed By: #### CBCDIF, U A, PT, GBCHEM, GBTSH, MG, RPR ####[facility] [id number] [place], [place] [phone] Platelets 220 150-450 k/uL Normal 07-02-2017 [facility] ([id number]) Comment: Performed By: #### CBCDIF, U A, PT, GBCHEM, GBTSH, MG, RPR ####[facility] [id number] [place], [place] [phone] WBC (Leukocytes) 9.41 4.5-11.0 k/uL Normal 07-02-2017 [facility] (61252) Comment: Performed By: #### CBCDIF, U A, PT, GBCHEM, GBTSH, MG, RPR ####[facility] [id number] [place], [place] [phone] Encounters Date Type Reason Provider Location 07-02-2017 [facility] (0000 0) 06-09-2020 - Letter encounter Yany Sampson [facility] ent Care 06-09-2020 08-06-2020 - Patient encounter External Provider [facility] 08-06-2020 procedure 08-06-2020 Results Only External Provider External-N [facility] 07-30-2020 - Telephone encounter Kota (Dylan.Noel) [facility] Medicine 07-30-2020 Freda Sampson Comment: Results 07-22-2020 - Telephone encounter Kota (Yoli) Freda [facility] Medicine 07-22-2020 Adrián Comment: COVID + 06-09-2020 - 06-09-2020 Telephone encounter Yany Sampson [facility] Comment: Results 06-08-2020 - 06-08-2020 Telephone encounter Urgent [facility] Adrián Comment: Covid Follow Up (test result s- neg) Procedures Procedure Name Date Provider Location EXTERNAL LAB 08-06-2020 External Provider [facility] ([id number]) Colon[facility] 09-28-2014 [facility]90229[facility] Plan of Treatment Plan Description Date Location LIPID SCREEN LIPID SCREEN 03-12-2025 - [facility] 03-12-2025 ([id number]) DTAP,TDAP,TD (2 - Td) DTAP,TDAP,TD (2 - Td) 06-28-2024 - [facility] 06-28-2024 ([id number]) DIABETES SCREEN DIABETES SCREEN 03-12-2023 - [facility] 03-12-2023 ([id number]) INFLUENZA (#1) INFLUENZA (#1) 2020 - [facility] 04-30-2020 ([id number]) COLONOSCOPY COLONOSCOPY 09-28-2019 - [facility] 09-28-2019 ([id number]) COLONOSCOPY COLONOSCOPY 09-28-2019 [facility] (71771) ONE PNEUMOVAX PRIOR TO ONE PNEUMOVAX PRIOR TO 11-19-1991 - [facility] AGE 67 AGE 67 11-19-1991 ([id number]) ANNUAL PCP TEAM CHRONIC ANNUAL PCP TEAM CHRONIC 1990 - [facility] DISEASE VISIT DISEASE VISIT 1990 (23171) BP CONTROLLED (<130/80) BP CONTROLLED (<130/80) 1990 - [facility] 1990 (16246) no information [facility] (43082) Immunizations Vaccine Notes Status Date Location Tdap (Age 7+) tetanus toxoid, (completed) 06-28-2014 - [facility] reduced diphtheria 06-28-2014 (60313) toxoid, and acellular pertussis vaccine, adsorbed Payers Payer Name Policy Number [facility] ([id number]) ANTH[address] [id number] [facility] ([phone]) The following information is from the original human readable contentNo Payer Records FoundNo Payer Records FoundNo Payer Records Found Social History Type Social History Date Location Description Tobacco smoking status Current every day smoker 06-05-2020 - [facility] NHIS 06-05-2020 ([id number]) Cigarettes smoked 06-05-2020 - [facility] current (pack per day) 06-05-2020 ([id number]) - Reported Tobacco use and Never used 06-05-2020 - [facility] exposure 06-05-2020 (60219) Alcohol intake Current drinker of 06-05-2020 - [facility] jo alcohol (finding) 06-05-2020 (64397) Alcohol Comment [facility] (30181) Sex Assigned At Not on file 1970 [facility] (57523) Exposure to SARS-CoV-[address] [facility] (event) (49943) The following information is from the original [...] BE BASED ON THE PRIMARY CLINICAL RECORDS. [facility] provides no warranty or guarantee of the accuracy or completeness of information in this document. UNRECOGNIZED CONTENT PROVIDED BELOW FOR UNRECOGNIZED SECTION No Status Records FoundNo Status Records Found UNRECOGNIZED CONTENT PROVIDED BELOW FOR UNRECOGNIZED SECTION INFORMATION SOURCE DATE CREATED AUTHOR AUTHOR'S ORGANIZATIO N 02/22/2018 [facility] nter DATE CREATED AUTHOR AUTHOR'S ORGANIZATIO N 08/01/2020 [facility] UNRECOGNIZED CONTENT PROVIDED BELOW FOR UNRECOGNIZED SECTION Source Comments In the event this information is protected by the Federal Confidentiality of Alcohol and Drug Abuse Patient Records regulations: The Federal rules restrict any use of the information to criminally investigate or prosecute any alcohol or drug abuse patient.[facility] the event this information is protected by the Federal Confidentiality of Alcohol and Drug Abuse Patient Records regulations: The Federal rules restrict any use of the information to criminally investigate or prosecute any alcohol or drug abuse patient.[facility] the event this information is protected by the Federal Confidentiality of Alcohol and Drug Abuse Patient Records regulations: The Federal rules restrict any use of the information to criminally investigate or prosecute any alcohol or drug abuse patient.[facility] the event this information is protected by the Federal Confidentiality of Alcohol and Drug Abuse Patient Records regulations: The Federal rules restrict any use of the information to criminally investigate or prosecute any alcohol or drug abuse patient.[facility] the event this information is protected by the Federal Confidentiality of Alcohol and Drug Abuse Patient Records regulations: The Federal rules restrict any use of the information to criminally investigate or prosecute any alcohol or drug abuse patient.[facility] the event this information is protected by the Federal Confidentiality of Alcohol and Drug Abuse Patient Records regulations: The Federal rules restrict any use of the information to criminally investigate or prosecute any alcohol or drug abuse patient.[facility] the event this information is protected by the Federal Confidentiality of Alcohol and Drug Abuse Patient Records regulations: The Federal rules restrict any use of the information to criminally investigate or prosecute any alcohol or drug abuse patient.[facility] UNRECOGNIZED CONTENT PROVIDED BELOW FOR UNRECOGNIZED SECTION Reason for Visit Reason Comments Covid Follow Up test results- neg Reason Comments Results Reason Comments COVID + UNRECOGNIZED CONTENT PROVIDED BELOW FOR UNRECOGNIZED SECTION Miscellaneous Notes Telephone Encounter - Alisha Lawton Ma - 06/08/2020 11:56 AM EDTReceived negative covid test results from [facility] ordered by urgent care Patient was notified Alisha Lawton Ma documented in this encounterTelephone Encounter - Alisha Lawton Ma - 06/08/2020 11:56 AM EDTReceived negative covid test results from [facility] ordered by urgent care Patient was notified Alisha Lawton Ma documented in this encounterTelephone Encounter - Yany Lucero - 06/09/2020 10:59 AM EDTLetter 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 Yany Lucero APRN.LINOTYPIST elephone Encounter - Jadon Starks Ma - 06/09/2020 10:52 AM EDTPatient notified of results, verbalizes understanding of instructions. Patient requesting a letter in writing to return to work. 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 elephone Encounter - Yany Lucero - 06/09/2020 9:23 AM EDTPlease notify of negative covid test. Continue comfort measures for symptoms as you would for a cold. Any worsening symptoms follow up with PCP or ER. Yany Lucero APRN.LINOTYPIST documented in this encounterTelephone Encounter - Zane Johnson RN - 07/22/2020 11:20 AM ESTPt called, verified by name and birthdate. Pt states he was tested at [facility] on 07-14-2020 and was COVID +. [...]
== END 2020-07-14 11:29 | disposition home or self-care (01) ==
PROVIDERS: Emergency Provider Physician Assistant; PCP Family Medicine
DX: U07.1 COVID-19 (principal); I10 Essential (primary) hypertension; Z79.899 Other long term (current) drug therapy; F17.200 Nicotine dependence, unspecified, uncomplicated
CPT/HCPCS: 71045; 87635; 99282; U0003

== ENCOUNTER → 2020-07-23 17:27 | Outpatient (CLI) | payer BC, SELFPAY ==
[2020-07-14 10:00] VITALS: BMI 34.4
== END ==
PROVIDERS: PCP Nurse Practitioner Family; Referring Provider Nurse Practitioner Family; Visit Provider Nurse Practitioner Family
DX: Z20.828 Contact with and (suspected) exposure to other viral communicable diseases (principal)
CPT/HCPCS: 87635; C9803; U0003

== ENCOUNTER 2022-03-01 09:54 | Inpatient (IN) | payer BC, SELFPAY ==
[2022-03-01] VITALS (8 sets, daily range): BP systolic 134–152; BP diastolic 92–100; PULSE 106–144; RESP 16–40; TEMP 36.2–37.3; O2SAT 94–97; BMI 33.5; BMI 34.8
--- NOTE | 2022-03-01 10:11 | CT_ITS ---
STUDY: CT BRAIN WITHOUT CONTRAST REASON FOR EXAM: Male, 51 years old. Slurred speech RADIATION DOSAGE (If Supplied By Facility): CTDIvol = ( 47.06 ) mGy, DLP = ( 819.74 ) mGycm TECHNIQUE: Transaxial CT imaging of the brain was performed without administration of intravenous contrast material. Individualized dose optimization techniques were used for this CT. COMPARISON: No relevant priors. FINDINGS: Normal soft tissue structures. Normal calvarium. Normal size ventricles and extra-axial spaces for the patient''s age. Normal white matter tracts of the cerebral hemispheres. Normal basal ganglia and thalami. Normal brainstem. Normal cerebellum. There is no intracranial hemorrhage. There are no findings of an acute ischemic infarction. Normal visualized paranasal sinuses. CT/Brain/Head without Contrast IMPRESSION: No acute intracranial process. Electronically Signed: Lindsay Tamayo MD at 11:54 EDT ,
--- NOTE | 2022-03-01 10:11 | RAD_ITS ---
STUDY: X-RAY CHEST REASON FOR EXAM: Male, 51 years old. Shortness of breath TECHNIQUE: Single frontal view of the chest. COMPARISON: 06/20/2016 and 07/14/2020 FINDINGS: There are nonspecific vague opacities within the lower lungs. Normal size heart. Normal mediastinum and [place]. Normal visualized pulmonary arteries. Normal visualized aortic arch and descending thoracic aorta. Normal visualized thoracic spine. Normal visualized ribs, clavicles, and shoulders. There is no demonstrated abnormality of the visualized soft tissue structures of the upper abdomen. RAD/Chest 1 View (Portable) IMPRESSION: Indeterminate opacities within the lower lungs, may be secondary to confluence of shadows however cannot exclude underlying atelectasis and/or pneumonia. Electronically Signed: Lindsay Tamayo MD at 11:29 EDT ,
--- NOTE | 2022-03-01 10:12 | EKG12_ITS ---
Test Reason : Blood Pressure : / mmHG Vent. Rate : 126 BPM Atrial Rate : 126 BPM P-R Int : 158 ms QRS Dur : 084 ms QT Int : 312 ms P-R-T Axes : 040 -10 043 degrees QTc Int : 451 ms Sinus tachycardia Poor R wave progression Septal NM, age undetermined, cannot be excluded Confirmed by LASHELL CAZARES, RL ([id number]), health editor MAINOR SANCHEZ ([id number]) on 03/03/2022 9:45:47 AM Referred By: RICHARD Confirmed By:RL LOBO MD
--- NOTE | 2022-03-01 10:13 | EDS_ITS ---
HPI History of Present Illness Chief Complaint: Shortness of Breath Detail of Chief Complaint: Short of breath, diarrhea, slurred speech Informant: patient and spouse/S.O. Onset/Context/Timing Onset: Days Context: Gradual Onset Current Severity: Moderate Maximum Severity: Moderate Narrative Narrative: Patient presents for evaluation of shortness of breath, cough, diarrhea, slurred speech. Patient reportedly went to an urgent care last Wednesday secondary to back pain. He was given a prescription for steroids and cyclobenzaprine. states has had both of these in the past. The following day she started noticing some diarrhea and slurred speech. He was not wanting to eat and drink. She attributed this to the medication but symptoms have continued. He has not taken any of those medications since Wednesday. Patient denies fever. He does feel that his speech is slurred. He feels slightly short of breath with a productive cough. No chest pain. He denies abdominal pain or vomiting. He does report diarrhea. [facility] Medical History Agitated depression Benign essential HTN Chronic back pain HLD (hyperlipidemia) Home Medications hydrochlorothiazide 12.5 mg capsule 12.5 mg PO DAILY 12/10/15 [History Last Taken Unknown] lisinopril 10 mg tablet 10 mg PO DAILY 07/14/20 [History Last Taken Unknown] Allergy/AdvReac Type Severity Reaction Status Date / Time No Known Allergies Allergy Verified 03/01/22 09:57 Social History Smoking Status: Current every day smoker tobacco type: cigarettes ROS ROS ED Constitutional Constitutional ED: Denies chills or fever(s) Eyes Eyes: Denies change in vision or discharge from eye(s) ENT ENT ED: Denies discharge from eye(s), rhinorrhea or sore throat Cardiovascular Cardiovascular: Denies chest pain or palpitations Respiratory/Chest Respiratory/Chest: Reports cough and dyspnea Gastrointestinal Gastrointestinal: Reports diarrhea and nausea; Denies abdominal pain or vomiting Genitourinary Genitourinary ED: Denies difficulty urinating or dysuria Musculoskeletal Musculoskeletal: Reports back pain; Denies extremity pain Integumentary Denies Abrasions or rash Neurologic Neurologic: Reports other Details: Slurred speech ; Denies headache(s) or weakness Allergic/Immunologic Allergic/Immunologic ED: Denies lip swelling or urticaria EXAM Physical Exam Const Vital Signs: 03/01/22 09:55 03/01/22 10:48 03/01/22 10:48 Temperature 97.2 F L Temperature Source Temporal Pulse Rate 144 H 118 H Respiratory Rate 24 H 40 H Respiratory Effort Short of Breath Respiratory Depth Normal Respiratory Pattern Normal Blood Pressure 134/96 H 148/100 H Blood Pressure Mean 108 116 Pulse Ox 95 97 Oxygen Delivery Method Room Air Room Air Nasal Cannula Oxygen Flow Rate (L/min) 2 Positive well nourished and well developed General Appearance ED: well developed HEENT Reports normocephalic and head/scalp atraumatic Eyes PERRL and EOMs intact bilaterally Neck supple Chest Wall inspection of chest normal and palpation of chest normal Resp normal respiratory effort and clear to auscultation bilaterally Cardio regular rhythm Rate: tachycardic GI non-tender Auscultation: hypoactive bowel sounds Palpation: soft Extremity normal to inspection Neuro oriented x3 and no sensory deficits noted Neuro Narrative: Slight slurred speech noted. No facial droop. Strength and sensation normal throughout. Sensorium / Orientation: alert Motor Exam: strength 5/5 throughout Psych mental status grossly normal Skin no rashes or lesions noted MDM MDM MDM Narrative Medical decision making narrative: EKG and portable chest x-ray obtained. Head CT ordered secondary to report of slurred speech. Lab work obtained. Lab Data Attestation: I reviewed the patient's lab results. Labs: Laboratory Results - last 24 hr 03/01/22 03/01/22 03/01/22 10:38 10:38 10:38 WBC 16.9 H RBC 4.91 Hgb 16.5 Hct 47.7 MCV 97.1 H MCH 33.6 H MCHC 34.6 RDW Std Deviation 43.2 RDW Coeff of María 11.9 Plt Count 198 MPV 11.2 Immature Gran % (Auto) 1.400 H Neut % (Auto) 85.3 H Lymph % (Auto) 5.3 L [place] % (Auto) 7.0 Eos % (Auto) 0.4 Baso % (Auto) 0.6 Absolute Neuts (auto) 14.4 H Absolute Lymphs (auto) 0.90 Nucleated RBC % 0 D-Dimer Quant (PE/DVT) 3.16 H* Sodium 131 L Potassium 2.8 L Chloride 97 L Carbon Dioxide 17.0 L Anion Gap 17 H BUN 25 H Creatinine 2.55 H Estim Creat Clear Calc 36.18 Est GFR (MDRD) Af Amer 35 L Est GFR (MDRD) Non-Af 29 L BUN/Creatinine Ratio 9.8 L Glucose 132 H Calcium 9.2 Total Bilirubin 0.80 Direct Bilirubin 0.33 H AST 141 H ALT 79 H Alkaline Phosphatase 78 Troponin I High Sens 44 B-Natriuretic Peptide Total Protein 8.1 Albumin 2.6 L Globulin 5.5 H 03/01/22 10:38 WBC RBC Hgb Hct MCV MCH MCHC RDW Std Deviation RDW Coeff of María Plt Count MPV Immature Gran % (Auto) Neut % (Auto) Lymph % (Auto) [place] % (Auto) Eos % (Auto) Baso % (Auto) Absolute Neuts (auto) Absolute Lymphs (auto) Nucleated RBC % D-Dimer Quant (PE/DVT) Sodium Potassium Chloride Carbon Dioxide Anion Gap BUN Creatinine Estim Creat Clear Calc Est GFR (MDRD) Af Amer Est GFR (MDRD) Non-Af BUN/Creatinine Ratio Glucose Calcium Total Bilirubin Direct Bilirubin AST ALT Alkaline Phosphatase Troponin I High Sens B-Natriuretic Peptide 23.9 Total Protein Albumin Globulin Radiography Chest X-Ray - ED: 1 View, Read by ED Physician and Chronic Changes (Chronic changes with questionable left lower lobe infiltrate.) Diagnostic Testing: Clinical Impression(s) from Imaging Studies Brain CT 03/01/22 10:11 IMPRESSION: No acute intracranial process. Electronically Signed: Lindsay Tamayo MD at 11:54 EDT Reading Location ID and State: [facility] / [place] Tel , Service support , Chest X-Ray 03/01/22 10:11 IMPRESSION: Indeterminate opacities within the lower lungs, may be secondary to confluence of shadows however cannot exclude underlying atelectasis and/or pneumonia. Electronically Signed: Lindsay Tamayo MD at 11:29 EDT , EKG Initial EKG: Attestation: I personally reviewed and interpreted this EKG as follows: Interpretation: Sinus Tachycardia (Sinus tach at 126. No acute ST change.) Treatment and Re-Evaluation Narrative: Patient has been given IV fluids. Heart rate is now around 110. CBC reveals elevated white count at 16.9 with a left shift. Hemoglobin 16.5. Chemistry nena dies significant for dehydration with a BUN of 25 and a creatinine of 2.55. His bicarb is low at 17 and his sodium is 131. Potassium is low at 2.8. Anion gap is 17. Glucose is 132. D-dimer is elevated at 3.16. Troponin and BNP are both normal. While patient was in CT scan for head imaging a CTA of the chest was added as well. Patient is ordered blood cultures and Rocephin and Zithromax for left lower lobe infiltrate. Patient was given potassium replacement. He continues with IV fluid hydration. CT scan of the head reveals no acute findings. CTA of the chest reveals a left lower lobe infiltrate but no evidence of PE. Patient be discussed with hospitalist for admission. Discharge Plan Triage Chief Complaint: Shortness of Breath Other Complaint: General Illness ED Provider: Alexa Carbone Dx/Rx/DC Orders Clinical Impression: Acute renal failure, Pneumonia, Hypokalemia, Diarrhea Prescriptions: No Action hydrochlorothiazide 12.5 MG capsule 12.5 mg PO DAILY lisinopril 10 MG tablet 10 mg PO DAILY Primary Care Provider: Kota Barba NP Referrals: Kota Barba NP, SIGNAL HELPER-C [Primary Care Provider] - Disposition Disposition: Acute Care [facility]
[2022-03-01 10:49] LABS: Absolute Neutrophil Count 14.4 X10^3/uL (2.0-7.7); Basophil% 0.6 % (0-1); Eosinophil# 0.06 X10^3/uL; Eosinophils% 0.4 % (0-5); Hematocrit 47.7 % (40-54); Hemoglobin 16.5 g/dL (13.0-16.5); Lymphocyte % 5.3 % (19-41); Mean Corp Hgb Conc 34.6 g/dL (32-36); Mean Corpuscular Hgb 33.6 pg (27.0-32.0); Mean Corpuscular Volume 97.1 fL (80-94); Mean Platelet Vol. 11.2 fl (6.2-12.0); Monocyte# 1.18 X10^3/uL; NRBC Flagged by Analyzer 0 % (0-5); Neutrophil % 85.3 % (47-70); Platelet Count 198 K/mm3 (150-450); RBC Distribution Width CV 11.9 % (11.6-14.6); RBC Distribution Width SD 43.2 fl (35.1-43.9); Red Blood Count 4.91 M/mm3 (4.6-6.2); White Blood Count 16.9 K/mm3 (4.4-11.0)
[2022-03-01] MEDS: 0.9% Normal Saline 1,000 ML 1000 ML IV (10:50)
[2022-03-01 11:03] LABS: BNP,B-Type NATRIURETIC PEPTIDE 23.9 pg/mL (0-100)
[2022-03-01 11:04] LABS: D-Dimer Quantitative (DVT/PE) 3.16 FEU/ug/m (0.27-0.49)
[2022-03-01 11:07] LABS: AST(SGOT) 141 U/L (15-37); Alanine Aminotransfer ALT/SGPT 79 U/L (16-61); Albumin, Serum 2.6 g/dL (3.2-5.0); Alkaline Phosphatase 78 U/L (45-117); Anion Gap 17 (5-15); BUN 25 mg/dL (7-18); BUN/Creat Ratio 9.8 RATIO (10-20); Bilirubin, Direct 0.33 mg/dL (0.00-0.30); Calcium,Total 9.2 mg/dL (8.5-10.1); Chloride 97 mmol/L (98-107); Creatinine, Serum 2.55 mg/dL (0.70-1.30); EST Glomerular Filtration Rate 29 mL/min (>60); Est Glom Filt Rate - Afr Amer 35 mL/min (>60); Estimated Creatinine Clearance 36.18 ml/min; Globulin 5.5 g/dL (2.2-4.2); Glucose 132 mg/dL (74-106); Potassium 2.8 mmol/L (3.5-5.1); Protein, Total 8.1 g/dL (6.4-8.2); Sodium Level 131 mmol/L (136-145); Troponin-I HS (w/2H Reflex) 44 pg/mL (3.0-78.0)
--- NOTE | 2022-03-01 11:17 | CT_ITS ---
STUDY: CTA CHEST REASON FOR EXAM: Male, 51 years old. Shortness of breath, elevated d-dimer RADIATION DOSAGE (If Supplied By Facility): CTDIvol = ( 11.65 ) mGy, DLP = ( 456.38 ) mGycm TECHNIQUE: The examination was performed with the intravenous administration of IV 100mL Isovue-[id number]. Post-processing of the angiographic images was performed, with multiplanar reformation and 3D reconstruction. Individualized dose optimization techniques were used for this CT. COMPARISON: CT of the abdomen and pelvis dated 11/26/2017 FINDINGS: Motion artifact grades anatomic detail. There are patchy and groundglass opacities within the left lower lobe. Normal enhancement of the main pulmonary artery and right and left pulmonary arteries. Normal enhancement of the bilateral peripheral pulmonary arteries. There is no demonstrated pulmonary embolism. Normal thoracic aorta and visualized great vessels. There is no demonstrated aortic dissection. There are calcifications of the coronary arteries. There are enlarged mediastinal and left hilar lymph nodes. Normal visualized trachea and bronchi. Normal chest wall structures. Normal osseous structures. The limited images of the upper abdomen demonstrate a diffusely low in attenuation liver consistent with fatty infiltration. CT/CTA Chest W/WO Contrast IMPRESSION: No demonstrated pulmonary embolism or arterial dissection. Left lower lobe patchy and groundglass opacities concerning for underlying pneumonia and/or edema, recommend follow-up chest CT in 10-12 weeks to assess for resolution. Enlarged mediastinal and left hilar lymph nodes, likely reactive however cannot entirely exclude a neoplastic process. Atherosclerosis. Fatty infiltration of the liver. Electronically Signed: Lindsay Tamayo MD at 12:09 EDT ,
[2022-03-01] MEDS: 0.9% Normal Saline 1,000 ML 150 ML IV (11:45)
[2022-03-01] MEDS: Ceftriaxone 1 GM/50 ML BAG IV (12:39)
[2022-03-01 12:40] LABS: Allen Test Positive; Base Excess -8 mmol/L (-2 to +2); Bicarbonate 16.7 mmol/L (22-26); Blood Gas Specimen Type ART; O2 Delivery Device Cannula; PO2 79 mmHG (75-100); SITE R Radial; SO2 96 % (95-99); Total Carbon Dioxide 18 mmol/L; pCO2 25.2 mmHg (35-45); pH 7.43 (7.35-7.45)
[2022-03-01] MEDS: Potassium Chloride 10mEq/100mL 10 MEQ/100 ML IV.SOLN. 100 MEQ IV BOLUS ×8 (12:40→21:29)
[2022-03-01 12:45] LABS: Reflex Troponin-HS? (from REC) Y
[2022-03-01 13:08] LABS: Acetaminophen (Tylenol) Level < 2.0 ug/mL (10.0-30.0); Salicylate < 1.7 mg/dL (2.8-20.0)
[2022-03-01 13:18] LABS: Anion Gap 15 (5-15); BUN 24 mg/dL (7-18); BUN/Creat Ratio 10.7 RATIO (10-20); Calcium,Total 8.4 mg/dL (8.5-10.1); Chloride 102 mmol/L (98-107); Creatinine, Serum 2.24 mg/dL (0.70-1.30); EST Glomerular Filtration Rate 33 mL/min (>60); Est Glom Filt Rate - Afr Amer 40 mL/min (>60); Estimated Creatinine Clearance 41.19 ml/min; Glucose 118 mg/dL (74-106); Potassium 2.9 mmol/L (3.5-5.1); Sodium Level 135 mmol/L (136-145)
[2022-03-01 13:20] LABS: Troponin-I HS 48 pg/mL (3.0-78.0)
--- NOTE | 2022-03-01 13:25 | HP.PCM.HOS_ITS ---
Documented by User: Dr. Corry Tovar DO 03/01/22 15:51 HPI - General General Date of Admission: 03/01/22 Chief Complaint: Weakness/diarrhea/slurred speech HPI Narrative Dr. Tovar Mr. Clemens is a 51-year-old -[place] male who presented to emergency department [facility] on 03/01/2022 for weakness, diarrhea, and slurred speech. His presents with him and assist with most of the history. 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 They went to an urgent care and diagnosed him with a low back strain and put him on steroids as well as Flexeril. He states his back pain is since resolved but on 02/25/2022 he developed diarrhea and general malaise. He describes the diarrhea as severe and when I asked him how much he was having he stated a lot.. He did not remark on the particular smell of the diarrhea however he did report that it was green and yellow-colored. He had no nausea or vomiting but his p.o. intake has decreased as he reports when he eats or drinks he has severe diarrhea following so has been trying not to eat as much because of this. He was to be on lisinopril and hydrochlorothiazide at baseline for his blood pressure however he has been noncompliant with these for some time. Initially felt his symptoms were related to the medications given to him as he reports previous sensitivity to medications however symptoms were persistent and unresolving and worsening with time. His is concerned because he developed some slurred speech and was more sluggish and sleepy with increased weakness over time and they decided to present to the emergency department today because so. His last meal was yesterday where he ate a solid but they indicate overall his p.o. intake has been poor. He has been drinking some water and Gatorade as well however these have been on a limited basis secondary to them making him have worsening diarrhea per his thoughts. Per the he does drink alcohol daily with 3-4 beers and 2 shots of whiskey but has not had any alcoholic drink since of last week. He currently shows no sign of alcohol withdrawal. Upon presentation emergency department his temperature was 97.2 his heart rate was 144, blood pressure 134/96, respiratory rate 24, oxygen saturations were 95% on room air. He was placed on supplemental oxygen for comfort however the patient was never hypoxic during his time in the emergency department. His CBC shows a elevated white count at 16.9 with normal hemoglobin and an elevated MCV at 97.1 with platelet count of 198,000. His initial BMP showed a sodium of 131, potassium of 2.8, chloride of 97, carbon dioxide of 17, anion gap of 17, BUN of 25, serum creatinine of 1.55, glucose of 132, normal bilirubin, AST of 141, ALT of 79. A D-dimer was obtained secondary to his tachypnea and tachycardia and was elevated at 3.16 and therefore a CTA of his chest was performed and demonstrated no PE or arterial dissection a left lower lobe patchy infiltrate and enlarged mediastinal and hilar lymph nodes that were suspected to be reactive, atherosclerosis, and fatty liver. Request an ABG be done given his anion gap elevation and he was found to have a pH of 7.43 PCO2 of 25.2 and a PO2 of 79 on 2 L nasal cannula indicating somewhat of an AA mismatch and a compensated metabolic acidosis. In the emergency department he was hydrated aggressively with IV fluids, given 40 mill equivalents of IV potassium, and request for admission was made [employer] Student KRISTIN CLEMENS, is a 51 M who presents the hospital emergency department on 03/01/2022 for weakness, diarrhea, and slurred speech. Per the patient and , the symptoms began last 02/25/2022. 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 The back pain developed the following day, described as bilateral lower back pain. While the patient does have history of chronic back pain, this pain prompted a visit to the urgent care on 02/25/2022 where he received a prescription for steroid and cyclobenzaprine. The patient has also been taking ibuprofen at approximately 4 tablets twice per daily for the pain. This medication did not seem to improve the patient's pain however, and by Wednesday, the patient developed weakness, diarrhea, and slurred speech. The attributed this to a reaction to the prescriptions, although he has taken both in the past. She states that he is very sensitive to medications. The patient was becoming increasingly weak and tired with decreased intake. The patient's last meal was a salad yesterday, but he has been drinking water and Gatorade. The patient states he has been having diarrhea every hour, a green/yellow- colored stool. Today, the patient became increasingly weak and off balance, so he was brought to the emergency department. On arrival to the emergency department, the patient's vital signs as were temperature 97.2, blood pressure 134/96, heart rate 144, respiratory rate of 24, and 95% on room air. CBC was significant for white blood cell count of 16.9 with a left shift, neutrophils at 85%. CMP demonstrated a sodium of 131, potassium 2.8, bicarb of 17 with anion gap of 17. Renal function was decreased with a creatinine of 2.55 and BUN of 25. LFTs were elevated with AST at 141 and ALT at 79. Glucose was 132. D-dimer was elevated at 3.16. CTA of the chest, however, was negative for PE, but demonstrated left lower lobe patchy and groundglass opacities. This was consistent with a chest x-ray which also showed lower lobe opacities, but no other acute cardiopulmonary process. Rapid COVID was negative. Troponin and BNP were both normal. A CT of the head was also obtained which revealed no acute findings. The patient was given 1 L normal saline bolus with maintenance at 150 MLS per hour. Potassium was replaced with 40 mEq IV. Rocephin and azithromycin were also administered. Recent repeat vital signs show heart rate at 108 and respiratory rate at 35. Patient was placed on 2 L of oxygen for comfort, but was never hypoxic. The case was discussed with Dr. Carbone in the emergency department; a set of blood cultures and ABG will be obtained. The patient will be admitted to telemetry unit for further work-up and monitoring. 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 current occupational exposures/hazards: No Smoking Status: Current every day smoker tobacco type: cigarettes alcohol intake: current alcohol intake frequency: 3 or more drinks per day details: 3-4 beers and a few shots of whiskey per day on average substance use type: does not use ROS Constitutional Constitutional: Reports anorexia, fatigue and weakness; Denies change in weight, chills, fever(s), malaise, night sweats or other Eyes Eyes: Reports blurry vision; Denies change in eye color, change in vision, discharge from eye(s), double vision, erythema, eye pain, loss of vision or other ENT HEENT: Reports headache(s); Denies abnormal hearing, dysphagia, ear pain, epistaxis, hearing loss, nasal congestion, nasal discharge, post nasal drip, sinus pressure, sore throat or other Cardiovascular Cardiovascular: Denies chest pain, claudication, dyspnea on exertion, edema, l ightheadedness, orthopnea, palpitations, paroxysmal nocturnal dyspnea, rapid heart rate, syncope or other Respiratory/Chest Respiratory/Chest: Reports cough; Denies dyspnea, excessive phlegm production, hemoptysis, productive cough, shortness of breath at rest, shortness of breath with exertion, wheezing or other Gastrointestinal Gastrointestinal: Denies abdominal pain, coffee ground emesis, constipation, dyspepsia, hematemesis, hematochezia, loose stools, melena, nausea or vomiting Genitourinary Genitourinary: Reports other; Denies burning urination, difficulty urinating, dysuria, hematuria, nocturia, urinary frequency, urinary hesitancy, urinary incontinence or urinary urgency Musculoskeletal Musculoskeletal: Denies arthralgias, back pain, joint pain, joint stiffness, joint swelling, myalgias, neck pain or other Neurologic Neurologic: Reports abnormal gait, abnormal speech and disequilibrium; Denies confusion, dizziness, focal weakness, numbness, paresthesias, seizure-like activity, seizures, syncope, tingling, tremor(s) or other Psychiatric Psychiatric: Denies anxiety, depression, homicidal ideation, suicidal ideation or other Endocrine Endocrinology: Denies change in body appearance, cold intolerance, excessive sweating, heat intolerance, polydipsia, polyuria or other Hematologic/Lymphatic Hematologic/Lymphatic: Denies anemia, easy bleeding, easy bruising, lymphadenopathy or other Allergic/Immunologic Allergic/Immunologic: Denies rhinitis, hives, eczemia, asthma or other Vital Signs Vital Signs Vital Signs: 03/01/22 09:55 03/01/22 10:48 03/01/22 10:48 Temperature 97.2 F L Temperature Source Temporal Pulse Rate 144 H 118 H Respiratory Rate 24 H 40 H Respiratory Effort Short of Breath Respiratory Depth Normal Respiratory Pattern Normal Blood Pressure 134/96 H 148/100 H Blood Pressure Mean 108 116 Pulse Ox 95 97 Oxygen Delivery Method Room Air Room Air Nasal Cannula Oxygen Flow Rate (L/min) 2 03/01/22 12:57 Temperature 98.2 F Temperature Source Oral Pulse Rate 108 H Respiratory Rate 35 H Respiratory Effort Respiratory Depth Respiratory Pattern Blood Pressure 138/96 H Blood Pressure Mean 110 Pulse Ox 97 Oxygen Delivery Method Nasal Cannula Oxygen Flow Rate (L/min) 2 Weight Weight: 106.141 kg Body Mass Index (BMI) 33.5 Physical Exam Const alert, oriented x3, no apparent distress and well nourished Constitutional Narrative: Obese middle-aged -[place] male sitting up in bed, appears ill but nontoxic, at bedside, patient interacts appropriately however does not seem all that interested in giving a lot of history or talking much General Appearance: cooperative Orientation / Consciousness: Negative for confused, disoriented or lethargic HEENT normocephalic, head/scalp atraumatic, hearing grossly normal bilaterally, moist oral mucous membranes, oropharynx normal and dentition normal HEENT Narrative: Mallampati 2-3, no thrush Eyes PERRL, EOMs intact bilaterally and conjunctivae normal Neck no lymphadenopathy, supple, no JVD and no carotid bruits Resp normal respiratory effort, no retractions, no use of accessory muscles and clear to auscultation bilaterally Auscultation: Negative for crackles, rales, rhonchi or wheezes Cardio regular rhythm, S1 normal heart sound, S2 normal heart sound, no murmurs, no rub, no gallops, no clicks and no JVD; Negative for regular rate GI GI Narrative: Bowel sounds are markedly hyperactive Auscultation: hyperactive bowel sounds Palpation: Negative for tender, guarding or hernia Extremity normal to inspection, full ROM and no clubbing, cyanosis or edema Neuro oriented x3, CN's II-XII intact bilaterally, moves all extremities and no focal motor deficits Sensorium / Orientation: awake, alert, oriented to person, oriented to place and oriented to time Speech: speech normal Motor Exam: strength 5/5 throughout Psych Negative for affect normal Results Lab / Micro Data Attestation: I reviewed the patient's lab results. Result Diagrams: 03/01/22 10:38 03/01/22 12:55 Labs: Laboratory Results - last 24 hr 03/01/22 10:38: WBC 16.9 H, RBC 4.91, Hgb 16.5, Hct 47.7, MCV 97.1 H, MCH 33.6 H , MCHC 34.6, RDW Std Deviation 43.2, RDW Coeff of María 11.9, Plt Count 198, MPV 11.2, Immature Gran % (Auto) 1.400 H, Neut % (Auto) 85.3 H, Lymph % (Auto) 5.3 L , [place] % (Auto) 7.0, Eos % (Auto) 0.4, Baso % (Auto) 0.6, Absolute Neuts (auto) 14.4 H, Absolute Lymphs (auto) 0.90, Nucleated RBC % 0 03/01/22 10:38: D-Dimer Quant (PE/DVT) 3.16 H* 03/01/22 10:38: Sodium 131 L, Potassium 2.8 L, Chloride 97 L, Carbon Dioxide 17.0 L, Anion Gap 17 H, BUN 25 H, Creatinine 2.55 H, Estim Creat Clear Calc 36.18, Est GFR (MDRD) Af Amer 35 L, Est GFR (MDRD) Non-Af 29 L, BUN/Creatinine Ratio 9.8 L, Glucose 132 H, Calcium 9.2, Total Bilirubin 0.80, Direct Bilirubin 0.33 H, AST 141 H, ALT 79 H, Alkaline Phosphatase 78, Troponin I High Sens 44, Total Protein 8.1, Albumin 2.6 L, Globulin 5.5 H 03/01/22 10:38: B-Natriuretic Peptide 23.9 03/01/22 12:30: Salicylates < 1.7 L, Acetaminophen < 2.0 L 03/01/22 12:55: Sodium 135 L, Potassium 2.9 L, Chloride 102, Carbon Dioxide 18.0 L, Anion Gap 15, BUN 24 H, Creatinine 2.24 H, Estim Creat Clear Calc 41.19, Est GFR (MDRD) Af Amer 40 L, Est GFR (MDRD) Non-Af 33 L, BUN/Creatinine Ratio 10.7, Glucose 118 H, Calcium 8.4 L 03/01/22 12:55: Troponin I High Sens 48 Micro: Microbiology 03/01/22 11:04 Nasal Secretion SARS-CoV-2 Antigen (Rapid) - Final ABG Data ABG results: ABG 03/01/22 12:34 Specimen Type ART Sample Site R Radial pH 7.43 Bicarbonate Actual 16.7 L Total CO2 18 Base Excess -8 L O2 Saturation 96 ABG pCO2 25.2 L ABG pO2 79 Lei Test Positive O2 Delivery Device Cannula Liter Flow 2.[address] 03/01/22 10:11 IMPRESSION: No acute intracranial process. Electronically Signed: Lindsay Tamayo MD at 11:54 EDT , Chest X-Ray 03/01/22 10:11 IMPRESSION: Indeterminate opacities within the lower lungs, may be secondary to confluence of shadows however cannot exclude underlying atelectasis and/or pneumonia. Electronically Signed: Lindsay Tamayo MD at 11:29 EDT , Chest CTA 03/01/22 11:17 IMPRESSION: No demonstrated pulmonary embolism or arterial dissection. Left lower lobe patchy and groundglass opacities concerning for underlying pneumonia and/or edema, recommend follow-up chest CT in 10-12 weeks to assess for resolution. Enlarged mediastinal and left hilar lymph nodes, likely reactive however cannot entirely exclude a neoplastic process. Atherosclerosis. Fatty infiltration of the liver. Electronically Signed: Lindsay Tamayo MD at 12:09 EDT , Assessment & Plan Assessment/Plan (1) Acute renal failure: (2) Abnormal CT scan, chest: (3) Hypokalemia: (4) Diarrhea: (5) Metabolic acidosis: (6) High anion gap metabolic acidosis: (7) Transaminitis: (8) Metabolic encephalopathy: PLAN: Plan Dr. Tovar RTEVON -Baseline creatinine unknown however upon previous reviews from remote lab it appears his baseline creatinine runs between 1.1 and 1.3 -Creatinine admission was 2.55 -Likely related to severe dehydration from ongoing diarrhea and decreased p.o. intake -Aggressive hydration -We will not pursue any further work-up at this time however if serum creatinine does not appropriately come down with aggressive hydration would consider further work-up -Avoid nephrotoxins -Patient had lisinopril and hydrochlorothiazide on his initial med rec however he reports has not been compliant with these at home -Repeat lab in a.m. Severe diarrhea -Etiology unclear -Check C. difficile -Check enteric stool panel -Check ova and parasites/Giardia -Aggressive hydration -We will start empiric antibiotics with IV Flagyl and oral vancomycin -Discontinue if C. difficile is negative Anion gap metabolic acidosis -Likely related to TREVON and ongoing diarrhea -Should improve with hydration and improvement of his diarrhea -Continue to monitor -ABG shows no uncompensated acidosis however serum bicarb was low on presentation -May also have some starvation ketosis Abnormal chest CT -Suggestive of left lower lobe infiltrate -Patient with only mild cough and on oxygen for comfort however blood gas does demonstrate an AA gradient -If pneumonia present may blossom with time given need for aggressive hydration -We will start empiric azithromycin and ceftriaxone for now -COVID-19 negative-rapid -Check sputum culture if able Hypokalemia -Related to decreased p.o. intake and diarrhea losses -Aggressive supplementation -40 mill equivalents IV given in the emergency department and will give another 40 mill equivalents on top of that -Check a.m. magnesium level/Phos level -Repeat lab in a.m. Leukocytosis -Hemoconcentration/diarrheal illness/reactive -We will trend -Blood cultures and sputum culture pending -Empiric antibiotics ordered -Repeat CBC in a.m. Mild metabolic encephalopathy -Likely related to TREVON and diarrheal illness -Is alert and oriented x3 however mentation appears to be somewhat slowed -Speech is normal -Continue to monitor and anticipate resolution with improved renal function and hydration Transaminitis -CT of the abdomen pelvis is suggestive of hepatic steatosis -Patient does also consume alcohol on a regular basis however no intake since last -We will trend -Anticipate will improve with time -Repeat in a.m. Hypertension -Patient has history of hypertension however is not been compliant with his medications at home. Has previously been on hydrochlorothiazide and lisinopril -Will not restart these for now secondary to TREVON -May need to initiate antihypertensives prior to discharge or sooner depending on blood pressures -Monitor Alcohol abuse -Patient drinks 4-6 beers a day along with 2 shots of whiskey -Last drink was -No current signs of alcohol withdrawal -We will monitor Tobacco abuse -Recommend tobacco cessation -Patient declines need for nicotine replacement at this time will make available if patient desires Obesity -Complicates treatment, prognosis, outcomes -Recommend weight loss -BMI 34.8 DVT prophylaxis -Heparin subcu every 8 hours -SCDs CODE STATUS -Full code [employer]PER[employer] student TREVON ? Likely secondary to diarrhea/decreased intake and resulting dehydration ? Creatinine 2.55-->2.24 on repeat BMP ? Continue aggressive hydration with normal saline at 200 mL/hour ? Trend CMP Diarrhea ? Unclear etiology ? Enteric panel, ova and parasites, and C. difficile ? Start Flagyl IV ? Start Vanco p.o. ? NPO ? Contact precautions Metabolic acidosis with high anion gap ? Likely secondary to the above ? ABG shows compensated metabolic acidosis with pH of 7.43 ? KCl replacement continues ? Repeat BMP ? Aggressive hydration with normal saline at 200 mL/hr ? Check Mg/Phos/TSH and tox screen ? Salicylates/acetaminophen levels both normal ? Treat diarrhea as precipitating factor, see below ? Trend CMP Abnormal CTA of the chest with pneumonia ? CTA shows left lower lobe opacities concerning for pneumonia and/or edema ? There is also evidence of enlarged lymph nodes, with recommendation for follow-up chest CT in 10 to 12 weeks ? Patient remains largely asymptomatic, with only dry cough ? Continue azithromycin and ceftriaxone ? Obtain sputum culture, if cough becomes productive cough ? Guaifenesin as needed for cough Hypokalemia ? Suspect this is secondary to diarrhea and decreased intake ? K 2.8-->KCl 40 mEq in ED-->2.9 on repeat BMP ? KCl 40mEq IV ordered ? Trend CMP Leukocytosis ? WBC 16.9 ? Possibly secondary to pneumonia and/or diarrhea infectious process ? Patient is also hemoconcentrated ? Blood cultures ordered ? Sputum culture and enteric panel ordered ? Treating infectious empirically until, if/when, organisms identified ? Continue hydration ? Trend CBC Transaminitis ? Patient's previous AST/ALT in 2016 also elevated but not as severely ? Continue to follow on CMP Tobacco abuse ? Encourage smoking cessation ? Declines need for nicotine replacement Alcohol abuse ? Drinks 3-4 beers and couple shots of whiskey daily ? Last drink 02/26/2022 ? No signs of withdrawal Obesity ? BMI 34.8 ? Encourage weight loss DVT prophylaxis ? SCDs ? Heparin SQ twice daily, creatinine 2.24 CODE STATUS ? Full code Charges/Coding Visit Charges Inpatient E&M: 03517 Init Hosp L3 Documented by User: DELVIS ROMAN 03/01/22 15:30 HPI - General General Date of Admission: 03/01/22 Date of Service: 03/01/22 HPI Narrative [employer] Student KRISTIN CLEMENS, is a 51 M who presents the hospital emergency department on 03/01/2022 for weakness, diarrhea, and slurred speech. Per the patient and , the symptoms began last 02/25/2022. 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 The back pain developed the following day, described as bilateral lower back pain. While the patient does have history of chronic back pain, this pain prompted a visit to the urgent care on 02/25/2022 where he received a prescription for steroid and cyclobenzaprine. The patient has also been taking ibuprofen at approximately 4 tablets twice per daily for the pain. This medication did not seem to improve the patient's pain however, and by Wednesday, the patient developed weakness, diarrhea, and slurred speech. The attributed this to a reaction to the prescriptions, although he has taken both in the past. She states that he is very sensitive to medications. The patient was becoming increasingly weak and tired with decreased intake. The patient's last meal was a salad yesterday, but he has been drinking water and Gatorade. The patient states he has been having diarrhea every hour, a green/yellow- colored stool. Today, the patient became increasingly weak and off balance, so he was brought to the emergency department. On arrival to the emergency department, the patient's vital signs as were temperature 97.2, blood pressure 134/96, heart rate 144, respiratory rate of 24, and 95% on room air. CBC was significant for white blood cell count of 16.9 with a left shift, neutrophils at 85%. CMP demonstrated a sodium of 131, potassium 2.8, bicarb of 17 with anion gap of 17. Renal function was decreased with a creatinine of 2.55 and BUN of 25. LFTs were elevated with AST at 141 and ALT at 79. Glucose was 132. D-dimer was elevated at 3.16. CTA of the chest, however, was negative for PE, but demonstrated left lower lobe patchy and groundglass opacities. This was consistent with a chest x-ray which also showed lower lobe opacities, but no other acute cardiopulmonary process. Rapid COVID was negative. Troponin and BNP were both normal. A CT of the head was also obtained which revealed no acute findings. The patient was given 1 L normal saline bolus with maintenance at 150 MLS per hour. Potassium was replaced with 40 mEq IV. Rocephin and azithromycin were also administered. Recent repeat vital signs show heart rate at 108 and respiratory rate at 35. Patient was placed on 2 L of oxygen for comfort, but was never hypoxic. The case was discussed with Dr. Carbone in the emergency department; a set of blood cultures and ABG will be obtained. The patient will be admitted to telemetry unit for further work-up and monitoring. 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 current occupational exposures/hazards: No Smoking Status: Current every day smoker tobacco type: cigarettes alcohol intake: current alcohol intake frequency: 3 or more drinks per day details: 3-4 beers and a few shots of whiskey per day on average substance use type: does not use ROS Constitutional Constitutional: Reports anorexia, fatigue and weakness; Denies change in weight, chills, fever(s), malaise or night sweats Eyes Eyes: Reports blurry vision bilateral (Intermittently without consistent precipitating factor.); Denies discharge from eye(s), double vision, erythema, eye pain or loss of vision ENT HEENT: Reports headache(s); Denies abnormal hearing, dysphagia, ear pain, epistaxis, hearing loss, nasal congestion, nasal discharge, post nasal drip, sinus pressure or sore throat Cardiovascular Cardiovascular: Denies chest pain, claudication, dyspnea on exertion, edema, lightheadedness, orthopnea, palpitations, paroxysmal nocturnal dyspnea, rapid heart rate or syncope Respiratory/Chest Respiratory/Chest: Reports cough; Denies dyspnea, excessive phlegm production, hemoptysis, productive cough, shortness of breath at rest, shortness of breath with exertion or wheezing Gastrointestinal Gastrointestinal: Reports diarrhea, loose stools and other Details: Denies sick contacts, recent travel, recent antibiotic use. ; Denies abdominal pain, coffee ground emesis, constipation, dyspepsia, hematemesis, hematochezia, melena, nausea or vomiting Genitourinary Genitourinary: Denies burning urination, difficulty urinating, dysuria, hematuria, nocturia, urinary frequency, urinary hesitancy, urinary incontinence or urinary urgency Musculoskeletal Musculoskeletal: Reports back pain; Denies arthralgias, joint pain, joint stiffness, joint swelling, myalgias or neck pain Neurologic Neurologic: Reports abnormal gait, abnormal speech, disequilibrium and headache(s); Denies confusion, dizziness, focal weakness, numbness, paresthesias, seizure-like activity, seizures, syncope, tingling or tremor(s) Psychiatric Psychiatric: Denies anxiety, depression, homicidal ideation or suicidal ideation Endocrine Endocrinology: Denies change in body appearance, cold intolerance, excessive sweating, heat intolerance, polydipsia or polyuria Hematologic/Lymphatic Hematologic/Lymphatic: Denies anemia, easy bleeding, easy bruising or lymphadenopathy Allergic/Immunologic Allergic/Immunologic: Denies rhinitis, hives, eczemia or asthma Physical Exam Const alert, oriented x3, no apparent distress and well nourished Constitutional Narrative: Middle-aged obese male sitting upright in the bed. Patient appears tired and visibly tachypneic, but is alert and interactive. General Appearance: cooperative Orientation / Consciousness: Negative for confused, disoriented or lethargic HEENT normocephalic, head/scalp atraumatic, hearing grossly normal bilaterally, moist oral mucous membranes, oropharynx normal and dentition normal Eyes PERRL, EOMs intact bilaterally and conjunctivae normal Eyes Narrative: No scleral icterus Neck no lymphadenopathy, supple, no JVD and no carotid bruits Neck Narrative: Trachea midline, no thyroid enlargement. Resp normal respiratory effort, no retractions, no use of accessory muscles and clear to auscultation bilaterally Resp Narrative: Diminished lung sounds in the left lower base. Auscultation: Negative for crackles, rales, rhonchi or wheezes Cardio regular rhythm, S1 normal heart sound, S2 normal heart sound, no murmurs, no rub, no gallops, no clicks and no JVD Cardio Narrative: Tachycardic GI soft to palpation, non-tender and non-distended; Negative for hepatosplenomegaly Inspection: central obesity Auscultation: hyperactive bowel sounds Palpation: Negative for tender, guarding or hernia Extremity normal to inspection, full ROM and no clubbing, cyanosis or edema Extremity Narrative: Pedal pulses 2+ bilaterally Skin no rashes or lesions noted, no wounds, skin turgor normal, no jaundice, no pet echiae and no mottling Neuro oriented x3, CN's II-XII intact bilaterally, moves all extremities and no focal motor deficits Neuro Narrative: Patient speech is slow, but coherent and appropriate. Sensorium / Orientation: awake, alert, oriented to person, oriented to place and oriented to time Speech: speech normal Motor Exam: strength 5/5 throughout Psych affect normal Psych Narrative: Patient appears tired with flat affect. Results Lab / Micro Data Attestation: I reviewed the patient's lab results. Result Diagrams: 03/01/22 10:38 03/01/22 12:55 ABG Data Attestation: I personally reviewed and interpreted this ABG as follows: Interpretation: Fully compensated metabolic acidosis. 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 Likely secondary to diarrhea/decreased intake and resulting dehydration ? Creatinine 2.55-->2.24 on repeat BMP ? Continue aggressive hydration with normal saline at 200 mL/hour ? Trend CMP Diarrhea ? Unclear etiology ? Enteric panel, ova and parasites, and C. difficile ? Start Flagyl IV ? Start Vanco p.o. ? NPO ? Contact precautions Metabolic acidosis with high anion gap ? Likely secondary to the above ? ABG shows compensated metabolic acidosis with pH of 7.43 ? KCl replacement continues ? Repeat BMP ? Aggressive hydration with normal saline at 200 mL/hr ? Check Mg/Phos/TSH and tox screen ? Salicylates/acetaminophen levels both normal ? Treat diarrhea as precipitating factor, see below ? Trend CMP Abnormal CTA of the chest with pneumonia ? CTA shows left lower lobe opacities concerning for pneumonia and/or edema ? There is also evidence of enlarged lymph nodes, with recommendation for follow-up chest CT in 10 to 12 weeks ? Patient remains largely asymptomatic, with only dry cough ? Continue azithromycin and ceftriaxone ? Obtain sputum culture, if cough becomes productive cough ? Guaifenesin as needed for cough Hypokalemia ? Suspect this is secondary to diarrhea and decreased intake ? K 2.8-->KCl 40 mEq in ED-->2.9 on repeat BMP ? KCl 40mEq IV ordered ? Trend CMP Leukocytosis ? WBC 16.9 ? Possibly secondary to pneumonia and/or diarrhea infectious process ? Patient is also hemoconcentrated ? Blood cultures ordered ? Sputum culture and enteric panel ordered ? Treating infectious empirically until, if/when, organisms identified ? Continue hydration ? Trend CBC Transaminitis ? Patient's previous AST/ALT in 2016 also elevated but not as severely ? Continue to follow on CMP Tobacco abuse ? Encourage smoking cessation ? Declines need for nicotine replacement Alcohol abuse ? Drinks 3-4 beers and couple shots of whiskey daily ? Last drink 02/26/2022 ? No signs of withdrawal Obesity ? BMI 34.8 ? Encourage weight loss DVT prophylaxis ? SCDs ? Heparin SQ twice daily, creatinine 2.24 CODE STATUS ? Full code
[2022-03-01] MEDS: Heparin Injection (Vial) 5,000 UNIT/ML VIAL 5000 UNIT SC ×2 (14:50→20:23)
[2022-03-01] MEDS: metroNIDAZOLE 500 MG/100 ML BAG 100 MG IV ×2 (15:30→20:23)
[2022-03-01 16:23] LABS: Mucous, Urine 0 SEEN /hpf (<or=2+)
[2022-03-01 16:36] LABS: Color, Urine Yellow (Yellow); Glucose, Dipstick Normal (Normal); Ketone-Dipstick Negative (Negative); Leukocyte Esterase-Dipstick Negative /ul (Negative); Nitrite-Dipstick Negative (Negative); Occult Blood-Urine 250 /ul (Negative); Protein-Dipstick 100 mg/dl (Negative); Urine Bilirubin Dipstick Negative (Negative); Urine Clarity Sl. Cloudy (Clear); Urine Urobilinogen Normal (Normal)
[2022-03-01 16:49] LABS: White Blood Cells 0-5 SEEN /hpf (0-5)
[2022-03-01 16:50] LABS: Bacteria 1+ /hpf (None Seen); Coarse Granular Cast 5-10 SEEN /lpf (0-5 /lpf); Red Blood Cells-Urine 10-25 SEEN /hpf (0-5); Squamous Epithelial Cells - UA 0-5 SEEN /hpf (0-5)
[2022-03-01 17:02] LABS: Amphetamine Urine VISTA NEGATIVE (<1000 ng/mL); Barbiturate Urine VISTA NEGATIVE (< 200 ng/mL); Benzodiazepine Urine VISTA NEGATIVE (< 200 ng/mL); Cocaine Urine VISTA NEGATIVE (< 300 ng/mL); Ecstacy Urine VISTA NEGATIVE (< 500 ng/mL); Methadone Urine VISTA NEGATIVE (< 300 ng/mL); PCP Urine VISTA NEGATIVE (< 25 ng/mL); THC Urine VISTA NEGATIVE (< 50 ng/mL); Vista UDS pH Range 5
[2022-03-01] MEDS: Vancomycin 125 MG/5 ML Susp PO.SYRINGE PO ×2 (17:40→23:48)
[2022-03-01] MEDS: 0.9% Saline Lock 10 ML Syringe IV (20:31)
[2022-03-01] MEDS: 0.9% Normal Saline 1,000 ML 200 ML IV (22:50)
[2022-03-02] VITALS (10 sets, daily range): BP systolic 130–150; BP diastolic 68–98; PULSE 82–103; RESP 16–18; TEMP 36.4–37.5; O2SAT 95–99
[2022-03-02] MEDS: 0.9% Normal Saline 1,000 ML 200 ML IV ×2 (03:56→09:03)
[2022-03-02 05:44] LABS: Absolute Lymphocyte Count 1.03 X10^3/uL (0.83-4.51); Absolute Neutrophil Count 9.1 X10^3/uL (2.0-7.7); Basophil# 0.04 X10^3/uL; Basophil% 0.4 % (0-1); Hematocrit 40.8 % (40-54); Lymphocyte # 1.03 X10^3/ul (0.83-4.51); Lymphocyte % 9.1 % (19-41); Mean Corp Hgb Conc 34.3 g/dL (32-36); Mean Corpuscular Volume 96.2 fL (80-94); Mean Platelet Vol. 11.1 fl (6.2-12.0); Monocyte# 1.01 X10^3/uL; Monocyte% 8.9 % (0-10); NRBC Flagged by Analyzer 0 % (0-5); Neutrophil # 9.06 X10^3/uL (2.7-7.7); Neutrophil % 80.1 % (47-70); Platelet Count 186 K/mm3 (150-450); RBC Distribution Width CV 12.4 % (11.6-14.6); Red Blood Count 4.24 M/mm3 (4.6-6.2); White Blood Count 11.3 K/mm3 (4.4-11.0)
--- NOTE | 2022-03-02 06:15 | PCM.HOSP.N ---
Hospitalist Note Cdiff assay negative, enteric pathogens negative. Will d/c oral vanc and IV flagyl and add loperamide.
[2022-03-02] MEDS: Heparin Injection (Vial) 5,000 UNIT/ML VIAL 5000 UNIT SC ×3 (06:25→21:00)
[2022-03-02 06:27] LABS: ALB/GLOB Ratio 0.4 RATIO (0.9-2.4); AST(SGOT) 129 U/L (15-37); Alanine Aminotransfer ALT/SGPT 76 U/L (16-61); Albumin, Serum 2.1 g/dL (3.2-5.0); Alkaline Phosphatase 64 U/L (45-117); Anion Gap 10 (5-15); BUN 25 mg/dL (7-18); BUN/Creat Ratio 10.9 RATIO (10-20); Calcium,Total 9.1 mg/dL (8.5-10.1); Chloride 104 mmol/L (98-107); EST Glomerular Filtration Rate 32 mL/min (>60); Est Glom Filt Rate - Afr Amer 39 mL/min (>60); Estimated Creatinine Clearance 38.85 ml/min; Globulin 4.9 g/dL (2.2-4.2); Glucose 111 mg/dL (74-106); Magnesium 2.1 mg/dL (1.6-2.6); Phosphorus 2.5 mg/dL (2.5-4.9); Potassium 3.5 mmol/L (3.5-5.1); Sodium Level 133 mmol/L (136-145); Thyroid Stim Hormone (TSH) 2.67 uIU/mL (0.358-3.74)
[2022-03-02] MEDS: Loperamide 2 MG Capsule PO (06:35)
[2022-03-02] MEDS: 0.9% Saline Lock 10 ML Syringe IV (09:04)
[2022-03-02] MEDS: 0.9% Normal Saline 1,000 ML 150 ML IV ×2 (15:23→22:01)
--- NOTE | 2022-03-02 15:23 | PN.HOSP_ITS ---
Subjective Subjective Follow-up on acute kidney injury/acute gastroenteritis: Patient was seen and examined. He has had 2 large bowel movement. He received loperamide this morning. Denied any nausea or vomiting. Objective Data Objective Data Vital Signs: Vital Signs Temp Pulse Resp BP Pulse Ox O2 Del Method O2 Flow Rate 98.9 F 89 18 150/98 H 98 Room Air 2 03/02/22 15:22 03/02/22 15:22 03/02/22 15:22 03/02/22 15:22 03/02/22 15:22 03/02/22 15:22 03/01/22 18:25 Oxygen Flow Rate (L/min) 2 Oxygen Delivery Method Room Air Weight: 106.9 kg Body Mass Index (BMI) 34.8 Intake & Output: Intake and Output for Last 24 Hours 02/28/22 03/01/22 03/02/22 23:59 23:59 23:59 Intake Total 3305 / 3305 2974.16 / 2974.16 Balance 3305 / 3305 2974.16 / 2974.16 Lab / Micro Data Result Diagrams: 03/02/22 05:34 03/02/22 05:34 Labs: Laboratory Results - last 24 hr 03/01/22 16:00: Urine Opiates Screen NEGATIVE, Urine Methadone Screen NEGATIVE, Ur Barbiturates Screen NEGATIVE, Ur Phencyclidine Scrn NEGATIVE, Ur Amphetamines Screen NEGATIVE, MDMA (Ecstasy) Screen NEGATIVE, U Benzodiazepines Scrn NEGATIVE, Urine Cocaine Screen NEGATIVE, U Cannabinoids Screen NEGATIVE, Ur Drug Screen Comment 03/01/22 16:00: Urine Color Yellow, Urine Clarity Sl. Cloudy, Urine pH 5.0, Ur Specific [place] 1.020, Urine Protein 100 H, Urine Glucose (UA) Normal, Urine Ketones Negative, Urine Occult Blood 250 H, Urine Nitrite Negative, Urine Bilirubin Negative, Urine Urobilinogen Normal, Ur Leukocyte Esterase Negative, Urine RBC 10-25 SEEN, Urine WBC 0-5 SEEN, Ur Squamous Epith Cells 0-5 SEEN, Urine Bacteria 1+, Coarse Granular Casts 5-10 SEEN, Urine Mucus 0 SEEN 03/02/22 05:34: WBC 11.3 H, RBC 4.24 L, Hgb 14.0, Hct 40.8, MCV 96.2 H, MCH 33.0 H, MCHC 34.3, RDW Std Deviation 44.0 H, RDW Coeff of María 12.4, Plt Count 186, MPV 11.1, Immature Gran % (Auto) 1.500 H, Neut % (Auto) 80.1 H, Lymph % (Auto) 9.1 L, [place] % (Auto) 8.9, Eos % (Auto) 0.0, Baso % (Auto) 0.4, Absolute Neuts (auto) 9.1 H, Absolute Lymphs (auto) 1.03, Nucleated RBC % 0 03/02/22 05:34: Sodium 133 L, Potassium 3.5, Chloride 104, Carbon Dioxide 19.0 L , Anion Gap 10, BUN 25 H, Creatinine 2.30 H, Estim Creat Clear Calc 38.85, Est GFR (MDRD) Af Amer 39 L, Est GFR (MDRD) Non-Af 32 L, BUN/Creatinine Ratio 10.9, Glucose 111 H, Calcium 9.1, Phosphorus 2.5, Magnesium 2.1, Total Bilirubin 0.40, AST 129 H, ALT 76 H, Alkaline Phosphatase 64, Total Protein 7.0, Albumin 2.1 L, Globulin 4.9 H, Albumin/Globulin Ratio 0.4 L, TSH 2.67 Micro: Microbiology 03/01/22 16:00 Stool C. difficile DNA Amplification - Final 03/01/22 16:00 Stool Enteric Bacteriology - Final 03/01/22 16:00 Stool Stool Lactoferrin - Final 03/01/22 11:04 Nasal Secretion SARS-CoV-2 Antigen (Rapid) - Final Physical Exam Narrative Physical exam: General: Alert, Oriented x3, Cooperative, not on oxygen, not pale HEENT: Atraumatic Oral: Moist Mucosa Neck: Supple Lungs: Diminsihed to auscultation Cardiovascular: HS I+II, regular, no murmurs Abdomen: Bowel Sounds Present, Soft, Non Tender Extremities: No edema Skin: No rashes, No breakdown Neurological: Grossly intact Psych/Mental Status: Appropriate Assessment & Plan Assessment/Plan (1) Acute renal failure: (2) Abnormal CT scan, chest: (3) Hypokalemia: (4) Diarrhea: (5) Metabolic acidosis: (6) High anion gap metabolic acidosis: (7) Transaminitis: (8) Metabolic encephalopathy: PLAN: Plan 1. TREVON, prerenal likely secondary to dehydration from diarrhea Creatinine was 2.30, creatinine admission was 2.55, baseline creatinine between 1.2-1.3 Continue to hold lisinopril and hydrochlorothiazide Continue IV fluids, repeat blood work in a.m. 2. Acute gastroenteritis, unclear etiology, stool for enteric panel and C. difficile negative. Stool for ova and parasites are pending Continue loperamide as needed 3. Anion gap metabolic acidosis, likely secondary to #1 Slowly improving, continue to monitor Repeat blood work in a.m. 4. Pneumonia, continue on IV ceftriaxone and azithromycin 5. Hypokalemia, resolved, repeat blood in a.m. 6. Mild metabolic encephalopathy secondary to #1 and 2, resolved 7. Mild transaminitis, CT of the abdomen and pelvis shows hepatic steatosis, improving 8. Alcohol abuse, monitor for acute alcohol withdrawal 9. Nicotine abuse, declines replacement 10. DVT prophylaxis?heparin subcu Charges/Coding Visit Charges Inpatient E&M: 62131 Subs Hosp L2
[2022-03-03 02:59] VITALS: BP 152/65; PULSE 87; RESP 17; TEMP 36.6; O2SAT 99
[2022-03-03 03:07] VITALS: PULSE 86
[2022-03-03] MEDS: 0.9% Normal Saline 1,000 ML 150 ML IV (04:51)
[2022-03-03] MEDS: Heparin Injection (Vial) 5,000 UNIT/ML VIAL 5000 UNIT SC (04:53)
[2022-03-03 07:00] VITALS: PULSE 96
[2022-03-03 07:22] VITALS: O2SAT 98
[2022-03-03 08:47] LABS: Absolute Neutrophil Count 6.3 X10^3/uL (2.0-7.7); Basophil# 0.06 X10^3/uL; Basophil% 0.7 % (0-1); Eosinophil# 0.05 X10^3/uL; Eosinophils% 0.6 % (0-5); Hematocrit 36.2 % (40-54); Hemoglobin 12.5 g/dL (13.0-16.5); Lymphocyte % 12.9 % (19-41); Mean Corp Hgb Conc 34.5 g/dL (32-36); Mean Corpuscular Hgb 33.6 pg (27.0-32.0); Mean Corpuscular Volume 97.3 fL (80-94); Mean Platelet Vol. 11.6 fl (6.2-12.0); Monocyte# 0.75 X10^3/uL; Monocyte% 8.8 % (0-10); NRBC Flagged by Analyzer 0 % (0-5); Neutrophil # 6.33 X10^3/uL (2.7-7.7); Neutrophil % 74.3 % (47-70); POSITIVE MORPHOLOGY YES; Platelet Count 211 K/mm3 (150-450); RBC Distribution Width CV 12.6 % (11.6-14.6); RBC Distribution Width SD 44.9 fl (35.1-43.9); Red Blood Count 3.72 M/mm3 (4.6-6.2); White Blood Count 8.5 K/mm3 (4.4-11.0)
[2022-03-03 08:50] LABS: Differential Indicated SCAN CRITERIA MET
[2022-03-03 09:17] LABS: ALB/GLOB Ratio 0.4 RATIO (0.9-2.4); AST(SGOT) 111 U/L (15-37); Alanine Aminotransfer ALT/SGPT 79 U/L (16-61); Alkaline Phosphatase 57 U/L (45-117); Anion Gap 8 (5-15); BUN 20 mg/dL (7-18); BUN/Creat Ratio 14.5 RATIO (10-20); Calcium,Total 9.1 mg/dL (8.5-10.1); Chloride 108 mmol/L (98-107); Creatinine, Serum 1.38 mg/dL (0.70-1.30); EST Glomerular Filtration Rate 58 mL/min (>60); Est Glom Filt Rate - Afr Amer 70 mL/min (>60); Estimated Creatinine Clearance 64.75 ml/min; Globulin 4.6 g/dL (2.2-4.2); Glucose 107 mg/dL (74-106); Potassium 3.5 mmol/L (3.5-5.1); Protein, Total 6.6 g/dL (6.4-8.2); Sodium Level 135 mmol/L (136-145)
[2022-03-03 10:17] VITALS: BP 141/92; PULSE 86; RESP 18; TEMP 37.1; O2SAT 99
--- NOTE | 2022-03-03 10:40 | CASEMGMT ---
RN LAURO Face to Face with patient for initial transition planning/care coordination assessment. RN CM introduced self and role at [facility]. Patient lying in bed, alert and oriented, at bedsdie. Patient willing to participate in assessment and is able to answer all questions appropriately. Care providers, pharmacy, and demographics verified. Patient wishes to discharge home, denies need for home health at this time. Patient states he has no further needs or concerns at this time. CM to follow for discharge planning needs that may arise. PCP: Freda BENAVIDES Specialists: none Preferred Pharmacy: [facility] Insurance: [employer] Prescription Benefit: yes Living Will/HPOA: none LNOK: Living Arrangements: Patient lives in a single story home with 2 steps to enter. Patient states he is independent at home. Transportation: self, DME/HHC: Patient states he has grab bars at home. No previous HHC Disposition Plan: Patient to discharge home with family support and follow-up plans in place. Taylor CURRAN, RN, CM
--- NOTE | 2022-03-03 10:46 | PCM.DC ---
Discharge Instructions Diet Discharge Diet: 2000 mg Sodium Diet Activity Discharge Activity: Return to Normal Activity Weight Bearing Status: Weight bearing as tolerated Follow Up Care Test Results: Test results from this visit will be discussed in further detail at your follow-up appointment, if applicable. Discharge Plan Admission Admit Date/Time: 03/01/22 12:18 Primary Reason for Your Visit: TREVON/acute gastroenteritis Attending Provider: Katherin Nixon Primary Care Provider: Kota Barba NP Consulting Providers: Corry Tovar Instructions Additional Instructions / Restrictions: Continue to keep yourself hydrated. Follow-up with your primary care doctor within 1 week to have repeat blood work to check on your kidneys. Take note of your new blood pressure medication and measure blood pressure every day. Show a log of her blood pressure readings to your primary care doctor. Discharge Orders/Prescriptions Prescriptions: New amoxicillin-pot clavulanate [Augmentin] 500-125 mg tablet 1 tab PO BID 5 Days Qty: 10 0RF Referrals / Follow Up: Kota Barba NP, EDITING COMPUTER PUBLISHER[employer] [Primary Care Provider] - In 1 Week Disposition Disposition (needs filled in before D/C Order can be placed): Home, Self Care
--- NOTE | 2022-03-03 10:52 | DS.PCM_ITS ---
Providers Date of Admission: 03/01/22 Date of Discharge: 03/03/22 Primary Care Physician: CHARLENE Islas Reason For Visit: TREVON/PNEUMONIA Diagnosis Discharge Diagnosis (1) Acute renal failure: Status: Acute Code(s): N17.9 - Acute kidney failure, unspecified (2) Abnormal CT scan, chest: Status: Acute Code(s): R93.89 - Abnormal findings on diagnostic imaging of other specified body structures (3) Hypokalemia: Status: Resolved Code(s): E87.6 - Hypokalemia (4) Diarrhea: Status: Resolved Code(s): R19.7 - Diarrhea, unspecified (5) Metabolic acidosis: Status: Deleted Code(s): E87.2 - Acidosis (6) High anion gap metabolic acidosis: Status: Acute Code(s): E87.2 - Acidosis (7) Transaminitis: Status: Resolved Code(s): R74.01 - Elevation of levels of liver transaminase levels (8) Metabolic encephalopathy: Status: Resolved Code(s): G93.41 - Metabolic encephalopathy Medications at Discharge Home Medications amlodipine 5 mg tablet 5 mg PO DAILY 30 days #30 tabs 03/03/22 amoxicillin 500 mg-potassium clavulanate 125 mg tablet (Augmentin) 1 tab PO BID 5 days #10 tabs 03/03/22 Hospital Course Operations None Procedures None Summary of Care Provided Minutes Spent on Discharge: 40 Hospital Course: 51-year-old male who presented with weakness, diarrhea and slurred speech. 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 He was seen in the urgent care or diagn osed with back strain and put on steroids as well as Flexeril. His back pain has resolved at time of being admitted but he had diarrhea with generalized weakness. He denied any recent travel or eating anything unusual or any sick contact. Patient was found to be very weak and having some slurred speech as well as lethargy. He had poor p.o. intake and drinking some water. In the emergency department, he was tachycardic, his admitting blood work showed leukocytosis of 16.9, sodium was 131, potassium 2.8, BUN 25, creatinine 1.55. A D-dimer was obtained because of his tachypnea and tachycardia and it was elevated at 3.16. CTA of the chest was negative for acute PE but showed left lower lobe patchy infiltrate. Patient was admitted to the progressive care unit and received IV hydration and replacement of electrolytes. Patient continued to improve. Stool studies were negative for acute C. diff or enteric organisms. Creatinine came down from 2.55 to 1.38 at discharge. He was discharged on Augmentin for 5 more days making a total of 1 week antibiotics treatment. Patient had slight elevated blood pressure. He has not been taking his losartan or hydrochlorothiazide. Patient was started on amlodipine and discharged home. He was asked to measure his blood pressure. He knows to follow-up with his primary care doctor within a week Physical Exam Narrative Physical exam: General: Alert, Oriented x3, Cooperative, not on oxygen, not pale HEENT: Atraumatic Oral: Moist Mucosa Neck: Supple Lungs: Diminsihed to auscultation Cardiovascular: HS I+II, regular, no murmurs Abdomen: Bowel Sounds Present, Soft, Non Tender Extremities: No edema Skin: No rashes, No breakdown Neurological: Grossly intact Psych/Mental Status: Appropriate Weight / BMI Weight Weight: 106.9 kg Body Mass Index (BMI) 34.8 ABG / Lab / Microbiology Data Result Diagrams: 03/03/22 08:25 03/03/22 08:25 Laboratory: Laboratory Results - last 24 hr 03/03/22 08:25: WBC 8.5, RBC 3.72 L, Hgb 12.5 L, Hct 36.2 L, MCV 97.3 H, MCH 33.6 H, MCHC 34.5, RDW Std Deviation 44.9 H, RDW Coeff of María 12.6, Plt Count 211, MPV 11.6, Immature Gran % (Auto) 2.700 H, Neut % (Auto) 74.3 H, Lymph % (Auto) 12.9 L, [place] % (Auto) 8.8, Eos % (Auto) 0.6, Baso % (Auto) 0.7, Absolute Neuts (auto) 6.3, Absolute Lymphs (auto) 1.10, Nucleated RBC % 0 03/03/22 08:25: Sodium 135 L, Potassium 3.5, Chloride 108 H, Carbon Dioxide 19.0 L, Anion Gap 8, BUN 20 H, Creatinine 1.38 H, Estim Creat Clear Calc 64.75, Est GFR (MDRD) Af Amer 70, Est GFR (MDRD) Non-Af 58 L, BUN/Creatinine Ratio 14.5, Glucose 107 H, Calcium 9.1, Total Bilirubin 0.40, AST 111 H, ALT 79 H, Alkaline Phosphatase 57, Total Protein 6.6, Albumin 2.0 L, Globulin 4.6 H, Albumin/Globulin Ratio 0.4 L Microbiology: Microbiology 03/02/22 11:35 Sputum, Expectorated/Coughed Gram Stain - Final 03/02/22 11:35 Sputum, Expectorated/Coughed Respiratory Culture - Preliminary Staphylococcus species 03/01/22 12:30 Blood Culture (Wb) - Left Forearm Blood Culture - Preliminary No growth in 48 hours. 03/01/22 12:20 Blood Culture (Wb) - Right Forearm Blood Culture - Preliminary No growth in 48 hours. 03/01/22 16:00 Stool C. difficile DNA Amplification - Final 03/01/22 16:00 Stool Enteric Bacteriology - Final 03/01/22 16:00 Stool Stool Lactoferrin - Final 03/01/22 11:04 Nasal Secretion SARS-CoV-2 Antigen (Rapid) - Final D/C Instructions Discharge Diet: 2000 mg Sodium Diet Weight Bearing Status: Weight bearing as tolerated Meaningful Use Info Meaningful Use Diagnoses (Choose all that apply): None applicable Discharge Plan Admission Admit Date/Time: 03/01/22 12:18 Primary Reason for Your Visit: TREVON/acute gastroenteritis Attending Provider: Katherin Nixon Primary Care Provider: Kota Barba NP Consulting Providers: Corry Tovar Instructions Additional Instructions / Restrictions: Continue to keep yourself hydrated. Follow-up with your primary care doctor within 1 week to have repeat blood work to check on your kidneys. Take note of your new blood pressure medication and measure blood pressure every day. Show a log of her blood pressure readings to your primary care doctor. Discharge Orders/Prescriptions Prescriptions: New amoxicillin-pot clavulanate [Augmentin] 500-125 mg tablet 1 tab PO BID 5 Days Qty: 10 0RF amlodipine 5 mg Tablet 5 mg PO DAILY 30 Days Qty: 30 0RF Referrals / Follow Up: Kota Barba NP, MANAGER INSIDE[employer] [Primary Care Provider] - In 1 Week Disposition Disposition (needs filled in before D/C Order can be placed): Home, Self Care Charges/Coding Visit Charges Inpatient E&M: 35547 Disch Hosp
[2022-03-03] MEDS: amLODIPine 5 MG Tablet PO (11:21)
--- NOTE | 2022-03-03 12:01 | PHA.DC.MC ---
Pharmacy Service has performed discharge medication reconciliation and counseling for this patient. 1. AMLODIPINE 5MG PO DAILY 2. AUGMENTIN 500/125MG PO BID X 5 DAYS The patient's discharge medication list was reviewed for discrepancies and discrepancies were resolved. Home Medications amlodipine 5 mg tablet 5 mg PO DAILY 30 days #30 tabs 03/03/22 amoxicillin 500 mg-potassium clavulanate 125 mg tablet (Augmentin) 1 tab PO BID 5 days #10 tabs 03/03/22 The patient was counseled on the following discharge medications and changes in medications for homegoing were reviewed. The Reason for Use, instructions for use, and potential side effects were reviewed for all new medications. The patient's questions regarding all of their medications were answered. The patient was able to verbally demonstrate an understanding of their discharge medications.
[2022-03-04 20:43] LABS: Giardia Lamblia, Stool EIA Negative (Negative)
== END 2022-03-03 13:14 | disposition home or self-care (01) | DRG 391 ==
LOC: ED 12:10 → PCU 12:32
PROVIDERS: Admitting Provider Internal Medicine; Emergency Provider Emergency Medicine; PCP Nurse Practitioner Family; Visit Provider Internal Medicine
DX: A09 Infectious gastroenteritis and colitis, unspecified (principal); G93.41 Metabolic encephalopathy; J18.9 Pneumonia, unspecified organism; N17.9 Acute kidney failure, unspecified; E87.2 Acidosis; K76.0 Fatty (change of) liver, not elsewhere classified; E86.0 Dehydration; E78.5 Hyperlipidemia, unspecified; M54.9 Dorsalgia, unspecified; I10 Essential (primary) hypertension; F17.210 Nicotine dependence, cigarettes, uncomplicated; E87.6 Hypokalemia; F10.10 Alcohol abuse, uncomplicated; G89.29 Other chronic pain; Z79.899 Other long term (current) drug therapy; E66.9 Obesity, unspecified; Z68.33 Body mass index [BMI] 33.0-33.9, adult
CPT/HCPCS: 36415; 36600; 70450; 71045; 71275; 80048; 80053; 80076; 80307; 80329; 81001; 82803; 83630; 83735; 83880; 84100; 84443; 84484; 85025; 85379; 87040; 87070; 87077; 87177; 87186; 87205; 87209; 87329; 87493; 87506; 87811; 93005; 99285; 99406; J7030; J7040; J7050; Q9967; A4216; G0480; J0696

== ENCOUNTER 2022-10-06 08:06 | Inpatient (IN) | payer OTHER, SELFPAY ==
[2022-10-06] VITALS (10 sets, daily range): BP systolic 173–206; BP diastolic 88–130; PULSE 70–95; RESP 14–24; TEMP 36.4–36.9; O2SAT 96–99; BMI 37.5; BMI 38.2
--- NOTE | 2022-10-06 08:18 | EKG12_ITS ---
Test Reason : ABN EKG Blood Pressure : / mmHG Vent. Rate : 085 BPM Atrial Rate : 085 BPM P-R Int : 174 ms QRS Dur : 086 ms QT Int : 382 ms P-R-T Axes : 028 -24 113 degrees QTc Int : 454 ms Normal sinus rhythm Nonspecific T wave abnormality Abnormal ECG Confirmed by JUDY CAZARES, BASSAM ([id number]), videotape editor MAINOR SANCHEZ ([id number]) on 10/08/2022 11:33:37 AM Referred By: Confirmed By:BASSAM KIM MD
--- NOTE | 2022-10-06 08:20 | EX.ED.DYSGE1 ---
HPI History of Present Illness Chief Complaint: Hypertension Detail of Chief Complaint: High blood pressure and abnormal EKG Informant: patient Narrative Narrative: Patient presents the emergency department with complaint of elevated blood pressure. Patient states that he was having a yearly checkup at the primary care physician's office where they noticed he had elevated blood pressure and they did an EKG which appeared abnormal so he was referred to the emergency department. Patient denies chest pain. He denies shortness of breath out of the ordinary other than he is put on some weight and he attributes some mild dyspnea to that. Patient has no heart history. Patient states that he was supposed to be on blood pressure medicine including hydrochlorothiazide and amlodipine but has not been taking it for months. Patient denies recent illness. 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 current occupational exposures/hazards: No Smoking Status: Current every day smoker tobacco type: cigarettes alcohol intake: current alcohol intake frequency: 3 or more drinks per day details: 3-4 beers and a few shots of whiskey per day on average substance use type: does not use ROS ROS ED Review of Systems ROS Unobtainable: other Constitutional Constitutional ED: Reports lethargy; Denies chills, fever(s), sweats or weight loss Eyes Eyes: Denies blurry vision, change in vision or diplopia ENT ENT ED: Denies rhinorrhea or sore throat Cardiovascular Cardiovascular: Denies chest pain, orthopnea or racing heartbeat Respiratory/Chest Respiratory/Chest: Reports dyspnea on exertion; Denies cough, dyspnea, orthopnea or sputum Gastrointestinal Gastrointestinal: Denies abdominal pain, diarrhea, nausea or vomiting Genitourinary Genitourinary ED: Denies dysuria, hematuria or urinary frequency Musculoskeletal Musculoskeletal: Denies arthralgias, back pain, myalgias or neck pain Integumentary Denies abscess, Abrasions or rash Neurologic Neurologic: Denies headache(s) or weakness Psychiatric Psychiatric: Denies anxiety, depression or suicidal thoughts Endocrine Endocrinology: Denies polydipsia, polyphagia or polyuria Hematologic/Lymphatic Hematologic/Lymphatic: Denies easy bleeding, easy bruising or lymphadenopathy Allergic/Immunologic Allergic/Immunologic ED: Denies mouth swelling, tongue swelling or urticaria EXAM Physical Exam Const Vital Signs: 10/06/22 08:08 10/06/22 08:42 10/06/22 09:22 Temperature 97.6 F L Temperature Source Temporal Pulse Rate 95 88 Respiratory Rate 14 Respiratory Pattern Normal Blood Pressure 186/125 H 199/130 H Blood Pressure Mean 145 153 Pulse Ox 98 Oxygen Delivery Method Room Air Positive well nourished and well developed General Appearance ED: well developed and NAD HEENT Reports TM's clear and moist mucous membranes normocephalic and atraumatic; Negative for trauma or tenderness Tympanic Membrane ED: Yes TM's clear Eyes PERRL and EOMs intact bilaterally General Eye ED: Negative for pale conjunctiva or scleral icterus Neck no lymphadenopathy, supple and no JVD General: Negative for tenderness Chest Wall inspection of chest normal and palpation of chest normal Chest: Negative for tenderness Resp normal respiratory effort and clear to auscultation bilaterally Effort and Inspection: Negative for respiratory distress or pain with movement Auscultation: Negative for rhonchi, wheezes or diminished lung sounds Cardio regular rate, regular rhythm, S1 normal heart sound, S2 normal heart sound and no murmurs Peripheral Pulses: pulses 2+ throughout GI normal to inspection, nondistended, normoactive bowel sounds, soft to palpation, non-tender, non-distended and no masses Back/Spine no CVA tenderness and no thoracic nor lumbar tenderness Extremity normal to inspection General Extremety ED: Negative for edema General Extremity: Negative for edema Neuro oriented x3, CN's II-XII intact bilaterally, no sensory deficits noted and gait normal Sensorium / Orientation: awake, alert, oriented to person, oriented to place and oriented to time Motor Exam: strength 5/5 throughout and strength abnormal Psych mental status grossly normal Skin no rashes or lesions noted and no wounds MDM MDM MDM Narrative Medical decision making narrative: InterimLine established on arrival. Patient placed on a vehicle monitor technician. Showed sinus rhythm with a rate of [address] changes noted laterally and when compared with prior EKG from 2020 these changes are new. Patient was given hydralazine 5 mg IV. CBC with differential was unremarkable. Chemistries were unremarkable. He did have some chronic renal insufficiency with a creatinine 1.36. Troponin was normal at 49. Despite 5 mg of hydralazine blood pressure systolic still in the low 200s and diastolic in the 120s. He was given another dose of hydralazine. At this point Case will be discussed with hospitalist evaluate patient for admission for hypertensive urgency and abnormal EKG changes. Lab Data Attestation: I reviewed the patient's lab results. Labs: Laboratory Results - last 24 hr 10/06/22 10/06/22 08:30 08:30 WBC 6.9 RBC 5.27 Hgb 17.8 H Hct 50.5 MCV 95.8 H MCH 33.8 H MCHC 35.2 RDW Std Deviation 41.6 RDW Coeff of María 11.9 Plt Count 212 MPV 11.0 Immature Gran % (Auto) 0.400 Neut % (Auto) 63.7 Lymph % (Auto) 28.2 [place] % (Auto) 6.6 Eos % (Auto) 0.4 Baso % (Auto) 0.7 Absolute Neuts (auto) 4.4 Absolute Lymphs (auto) 1.95 Nucleated RBC % 0 Sodium 138 Potassium 3.4 L Chloride 106 Carbon Dioxide 25.0 Anion Gap 7 BUN 15 Creatinine 1.36 H Estim Creat Clear Calc 65.70 Est GFR (MDRD) Af Amer 71 Est GFR (MDRD) Non-Af 59 L BUN/Creatinine Ratio 11.0 Glucose 117 H Calcium 9.6 Troponin I High Sens 49 EKG Initial EKG: Attestation: I personally reviewed and interpreted this EKG as follows: Comments: Sinus rhythm with a ventricular rate of [address] changes Prior EKG tracings: available for review Prior: Changed Discharge Plan Triage Chief Complaint: Hypertension ED Provider: Willie Terry Dx/Rx/DC Orders Clinical Impression: Hypertensive urgency, Abnormal ECG, Chronic renal insufficiency Prescriptions: No Action amlodipine 5 mg Tablet 5 mg PO DAILY 30 Days Qty: 30 0RF Primary Care Provider: Colton Hammond Referrals: Kota Barba RN CLINICAL DOCUMENTATION SPECIALIST, RN CLINICAL DOCUMENTATION SPECIALIST-C [Non-Staff] - Disposition Disposition: Acute Care [facility]
[2022-10-06 08:40] LABS: Absolute Lymphocyte Count 1.95 X10^3/uL (0.83-4.51); Absolute Neutrophil Count 4.4 X10^3/uL (2.0-7.7); Basophil# 0.05 X10^3/uL; Basophil% 0.7 % (0-1); Eosinophil# 0.03 X10^3/uL; Eosinophils% 0.4 % (0-5); Hematocrit 50.5 % (40-54); Hemoglobin 17.8 g/dL (13.0-16.5); Lymphocyte # 1.95 X10^3/ul (0.83-4.51); Lymphocyte % 28.2 % (19-41); Mean Corp Hgb Conc 35.2 g/dL (32-36); Mean Corpuscular Hgb 33.8 pg (27.0-32.0); Mean Corpuscular Volume 95.8 fL (80-94); Monocyte# 0.46 X10^3/uL; Monocyte% 6.6 % (0-10); NRBC Flagged by Analyzer 0 % (0-5); Neutrophil % 63.7 % (47-70); Platelet Count 212 K/mm3 (150-450); RBC Distribution Width CV 11.9 % (11.6-14.6); RBC Distribution Width SD 41.6 fl (35.1-43.9); Red Blood Count 5.27 M/mm3 (4.6-6.2); White Blood Count 6.9 K/mm3 (4.4-11.0)
[2022-10-06 08:59] LABS: Anion Gap 7 (5-15); BUN 15 mg/dL (7-18); Calcium,Total 9.6 mg/dL (8.5-10.1); Chloride 106 mmol/L (98-107); Creatinine, Serum 1.36 mg/dL (0.70-1.30); EST Glomerular Filtration Rate 59 mL/min (>60); Est Glom Filt Rate - Afr Amer 71 mL/min (>60); Glucose 117 mg/dL (74-106); Potassium 3.4 mmol/L (3.5-5.1); Sodium Level 138 mmol/L (136-145); Troponin-I HS 49 pg/mL (3.0-78.0)
[2022-10-06] MEDS: 0.9% Normal Saline 1,000 ML 150 ML IV ×2 (09:19→13:42)
[2022-10-06] MEDS: hydrALAZINE 20 MG/ML Vial 5 MG IV ×2 (09:19→09:57)
[2022-10-06] MEDS: Labetalol (Prefilled) 20 MG/4 ML IV (14:34)
--- NOTE | 2022-10-06 15:13 | HP.PCM.HOS_ITS ---
[facility] - General General Date of Admission: 10/06/22 Date of Service: 10/06/22 HPI Narrative KRISTIN CLEMENS, is a 51 M with a PMH as outlined who presents via the ED on after being referred from his PCPs office with markedly elevated blood pressure. Patient has a history of high blood pressure but has not been compliant with his medication for at least 6 months. He states he was in his usual state of health and went to her PCP appointment because his made him go. When he went that his blood pressure was checked and his blood pressure was markedly elevated with a systolic over 200. He was therefore referred to the ED. He denied any headaches, blurred vision, chest pain, palpitations, dizziness, nausea vomiting or diarrhea. Review of systems otherwise negative. Vitals in the ED with blood pressure of 194/123, pulse rate of 75 respirate rate of 18 and he was on room air. CBC showed hemoglobin of 17.8 but was otherwise unremarkable. Chemistry was significant for potassium of 3.4 and creatinine of 1.36. Initial troponin was 49. Has been admitted to be managed for hypertensive urgency due to noncompliance. 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 current occupational exposures/hazards: No Smoking Status: Current every day smoker tobacco type: cigarettes alcohol intake: current alcohol intake frequency: 3 or more drinks per day details: 3-4 beers and a few shots of whiskey per day on average substance use type: does not use ROS Constitutional Constitutional: Denies anorexia, chills, fatigue, fever(s), malaise or weakness ENT HEENT: Denies dysphagia or headache(s) Cardiovascular Cardiovascular: Denies chest pain, dyspnea on exertion, edema, lightheadedness, orthopnea, palpitations, rapid heart rate or syncope Respiratory/Chest Respiratory/Chest: Denies cough, dyspnea, shortness of breath at rest or shortness of breath with exertion Gastrointestinal Gastrointestinal: Denies abdominal pain, constipation, nausea or vomiting Genitourinary Genitourinary: Denies burning urination or dysuria Musculoskeletal Musculoskeletal: Denies arthralgias Neurologic Neurologic: Denies confusion, dizziness, focal weakness, headache(s), seizures or syncope Psychiatric Psychiatric: Denies anxiety or depression Endocrine Endocrinology: Denies change in body appearance Vital Signs Vital Signs Vital Signs: 10/06/22 08:08 10/06/22 08:42 10/06/22 09:22 Temperature 97.6 F L Temperature Source Temporal Pulse Rate 95 88 Respiratory Rate 14 Respiratory Pattern Normal Blood Pressure 186/125 H 199/130 H Blood Pressure Mean 145 153 Pulse Ox 98 Oxygen Delivery Method Room Air 10/06/22 09:57 10/06/22 11:13 10/06/22 13:00 Temperature 97.6 F L Temperature Source Temporal Pulse Rate 74 88 75 Respiratory Rate 17 16 18 Respiratory Pattern Blood Pressure 206/124 H 188/110 H 194/123 H Blood Pressure Mean 151 136 146 Pulse Ox 96 Oxygen Delivery Method Room Air Room Air Weight Weight: 254 lb Body Mass Index (BMI) 37.5 Physical Exam Const alert, oriented x3 and no apparent distress General Appearance: cooperative HEENT normocephalic, head/scalp atraumatic, hearing grossly normal bilaterally and moist oral mucous membranes Mouth: oral and palatal mucosa normal Eyes PERRL and EOMs intact bilaterally Neck no lymphadenopathy and supple Resp normal respiratory effort, no retractions, no use of accessory muscles and clear to auscultation bilaterally Cardio regular rate, regular rhythm, S1 normal heart sound and S2 normal heart sound GI normal to inspection, nondistended, normoactive bowel sounds, soft to palpation, non-tender and non-distended Extremity normal to inspection, full ROM and no clubbing, cyanosis or edema Neuro oriented x3, CN's II-XII intact bilaterally, moves all extremities and no focal motor deficits Sensorium / Orientation: awake and alert Motor Exam: strength 5/5 throughout Psych affect normal Results Lab / Micro Data Result Diagrams: 10/07/22 06:35 10/07/22 06:35 Labs: Laboratory Results - last 24 hr 10/06/22 08:30: WBC 6.9, RBC 5.27, Hgb 17.8 H, Hct 50.5, MCV 95.8 H, MCH 33.8 H, MCHC 35.2, RDW Std Deviation 41.6, RDW Coeff of María 11.9, Plt Count 212, MPV 11.0, Immature Gran % (Auto) 0.400, Neut % (Auto) 63.7, Lymph % (Auto) 28.2, [place] % (Auto) 6.6, Eos % (Auto) 0.4, Baso % (Auto) 0.7, Absolute Neuts (auto) 4.4, Absolute Lymphs (auto) 1.95, Nucleated RBC % 0 10/06/22 08:30: Sodium 138, Potassium 3.4 L, Chloride 106, Carbon Dioxide 25.0, Anion Gap 7, BUN 15, Creatinine 1.36 H, Estim Creat Clear Calc 65.70, Est GFR (MDRD) Af Amer 71, Est GFR (MDRD) Non-Af 59 L, BUN/Creatinine Ratio 11.0, Glucose 117 H, Calcium 9.6, Troponin I High Sens 49 Assessment & Plan Assessment/Plan (1) Hypertensive urgency: PLAN: Plan #Hypertensive urgency due to noncompliance * admit to PCU * resume patient's BP meds- lisinopril, HCTZ and metoprolol * IV hydralazine prn * 2D echo ordered * EKG showed some t wave inversions in the lateral leads not present in previous EKGs * cycle troponins * #Hypokalemia: K is 3.4. Will replace and trend #CKD IIIa: Cr is 1.36, which is around his baseline from 2018. Will monitor #Nicotine dependence: smokes at least half a pack daily. counseled to quit. Nicotine patch 21mg daily. DVT prophylaxis: lovenox COde status: full code * Patient counseled extensively about different types of CODE STATUS including full code, DNR CCA and DNR CCA. Patient elects to be full code. * Total [id number] time 17 minutes. Charges/Coding Visit Charges Inpatient E&M: 85588 Init Hosp L3 Procedures Hospitalists Procedures: 99003 Advncd Care Plan 30 Min
--- NOTE | 2022-10-06 15:43 | ECHOD_ITS ---
Reason For Study: HYPERTENSION Procedure This was a 2D Doppler, Color Flow transthoracic echocardiogram. Myocardial strain analysis was performed in this exam to aid in the assessment of cardiac function. Exam performed portable in patient room. Left Ventricle Normal LV size. Severe concentric left ventricular hypertrophy. Left ventricular systolic function is normal. The estimated ejection fraction is 65 %. Stage 1 diastolic dysfunction. No regional wall motion abnormalities noted. Right Ventricle Normal RV size. Normal systolic function. Atria The left atrium is mildly enlarged. Normal right atrium. Mitral Valve Normal mitral valve. Tricuspid Valve Normal tricuspid valve. Aortic Valve Trisinus/trileaflet aortic valve. Pulmonic Valve Normal pulmonic valve. Great Vessels Normal aortic root. The pulmonary artery is normal size. Normal inferior vena cava. Pericardium/Pleural No pericardial effusion. MMode/2D Measurements & Calculations LVIDd: 4.1 cm IVSd: 1.8 cm Ao root diam: 3.2 cm LVIDs: 1.9 cm LVPWd: 1.8 cm RVDd: 2.6 cm FS: 54.7 % LAV(MOD-bp): 55.6 ml LVAd ap4: 22.4 cm2 LVAd ap2: 19.2 cm2 LAV(MOD-bp) Indexed: 24.3 ml/m2 LVLd ap4: 8.4 cm LVLd ap2: 8.0 cm LAV(MOD-sp2): 38.8 ml EDV(MOD-sp4): 53.9 ml EDV(MOD-sp2): 42.2 ml LAV(MOD-sp4): 71.8 ml EDV(sp4-el): 51.1 ml EDV(sp2-el): 39.5 ml LVAs ap4: 10.6 cm2 LVAs ap2: 9.5 cm2 LVLs ap4: 7.1 cm LVLs ap2: 6.8 cm ESV(MOD-sp4): 13.7 ml ESV(MOD-sp2): 12.1 ml ESV(sp4-el): 13.4 ml ESV(sp2-el): 11.2 ml EF(MOD-sp4): 74.6 % EF(MOD-sp2): 71.2 % EF(sp4-el): 73.8 % SV(MOD-sp4): 40.2 ml SV(MOD-sp2): 30.1 ml SV(sp4-el): 37.7 ml LA dimension(2D): 4.1 cm LA A4 area: 23.0 cm2 RA A4 area: 11.4 cm2 Time Measurements MV dec time: 0.22 sec Doppler Measurements & Calculations MV E max raman: 76.2 cm/sec Lat Peak E' Raman: 6.8 cm/sec Med Peak E' Raman: 6.4 cm/sec MV A max raman: 91.1 cm/sec E/E' lat: 11.2 E/E' med: 11.9 MV E/A: 0.84 MV dec slope: 341.8 cm/sec2 Ao V2 max: 196.2 cm/sec LV V1 max: 154.5 cm/sec Ao max P.4 mmHg LV V1 max P.5 mmHg PA V2 max: 103.1 cm/sec ECHO/Echo Complete Interpretation Summary Normal LV size. Severe concentric left ventricular hypertrophy. Left ventricular systolic function is normal. The estimated ejection fraction is 65 %. Stage 1 diastolic dysfunction. Apical sparing noted on the myocardial strain pattern. Cannot completely exclud e amyloid. The global longitudinal strain = -12.4% (abnormal). The global longitudinal str ain is severely abnormal. Apical sparing noted on the myocardial strain pattern. Cannot complet ayaz exclude amyloid. Ordering Physician: Ludy Salazar Performed By: Lona Zepeda
[2022-10-06] MEDS: amLODIPine 10 MG Tablet PO (16:38)
[2022-10-06 17:24] LABS: Troponin-I HS 29 pg/mL (3.0-78.0)
[2022-10-06] MEDS: hydrALAZINE 20 MG/ML Vial 10 MG IV (20:01)
[2022-10-06 20:27] LABS: Troponin-I HS 27 pg/mL (3.0-78.0)
[2022-10-06 23:14] LABS: Troponin-I HS 27 pg/mL (3.0-78.0)
[2022-10-07] VITALS (11 sets, daily range): BP systolic 114–179; BP diastolic 75–108; PULSE 73–93; RESP 16–17; TEMP 36.6–36.9; O2SAT 95–98
[2022-10-07] MEDS: hydrALAZINE 20 MG/ML Vial 10 MG IV ×3 (01:20→08:14)
[2022-10-07 06:53] LABS: Absolute Neutrophil Count 3.9 X10^3/uL (2.0-7.7); Basophil# 0.03 X10^3/uL; Basophil% 0.5 % (0-1); Eosinophil# 0.05 X10^3/uL; Eosinophils% 0.8 % (0-5); Hemoglobin 16.8 g/dL (13.0-16.5); Lymphocyte % 27.9 % (19-41); Mean Corp Hgb Conc 34.3 g/dL (32-36); Mean Corpuscular Hgb 33.3 pg (27.0-32.0); Mean Platelet Vol. 11.2 fl (6.2-12.0); Monocyte# 0.34 X10^3/uL; Monocyte% 5.6 % (0-10); NRBC Flagged by Analyzer 0 % (0-5); Neutrophil # 3.94 X10^3/uL (2.7-7.7); Neutrophil % 64.5 % (47-70); Platelet Count 200 K/mm3 (150-450); RBC Distribution Width CV 11.9 % (11.6-14.6); RBC Distribution Width SD 42.4 fl (35.1-43.9); Red Blood Count 5.05 M/mm3 (4.6-6.2); White Blood Count 6.1 K/mm3 (4.4-11.0)
[2022-10-07 07:20] LABS: Anion Gap 7 (5-15); BUN 8 mg/dL (7-18); BUN/Creat Ratio 7.6 RATIO (10-20); Calcium,Total 9.4 mg/dL (8.5-10.1); Chloride 108 mmol/L (98-107); Creatinine, Serum 1.05 mg/dL (0.70-1.30); EST Glomerular Filtration Rate 80 mL/min (>60); Est Glom Filt Rate - Afr Amer 96 mL/min (>60); Glucose 116 mg/dL (74-106); Potassium 3.5 mmol/L (3.5-5.1); Sodium Level 138 mmol/L (136-145)
[2022-10-07] MEDS: oxyCODONE 5 MG Tablet PO ×2 (08:14→14:11)
[2022-10-07] MEDS: amLODIPine 10 MG Tablet PO (08:14)
[2022-10-07] MEDS: Lisinopril 40 MG Tablet PO (09:50)
[2022-10-07] MEDS: hydroCHLOROthiazide 25 MG Tablet PO (09:50)
--- NOTE | 2022-10-07 10:50 | PN.HOSP_ITS ---
Reason for Visit Reason for Visit: Patient seen and examined. He had no active complaints and had an uneventful night. BP still not very well controlled. REview of systems is otherwise negative. Objective Data Objective Data Vital Signs: Vital Signs Temp Pulse Resp BP Pulse Ox O2 Del Method 97.9 F 93 16 158/90 H 98 Room Air 10/07/22 09:49 10/07/22 09:49 10/07/22 09:49 10/07/22 09:49 10/07/22 09:49 10/07/22 09:49 Oxygen Delivery Method Room Air Weight: 259 lb 0.69 oz Body Mass Index (BMI) 38.2 Intake & Output: Intake and Output for Last 24 Hours 10/05/22 10/06/22 10/07/22 23:59 23:59 23:59 Intake Total 1490.0 / 1490.0 Balance 1490.0 / 1490.0 Lab / Micro Data Result Diagrams: 10/07/22 06:35 10/07/22 06:35 Labs: Laboratory Results - last 24 hr 10/06/22 16:56: Troponin I High Sens 29 10/06/22 19:30: Troponin I High Sens 27 10/06/22 22:45: Troponin I High Sens 27 10/07/22 06:35: WBC 6.1, RBC 5.05, Hgb 16.8 H, Hct 49.0, MCV 97.0 H, MCH 33.3 H, MCHC 34.3, RDW Std Deviation 42.4, RDW Coeff of María 11.9, Plt Count 200, MPV 11.2, Immature Gran % (Auto) 0.700, Neut % (Auto) 64.5, Lymph % (Auto) 27.9, [place] % (Auto) 5.6, Eos % (Auto) 0.8, Baso % (Auto) 0.5, Absolute Neuts (auto) 3.9, Absolute Lymphs (auto) 1.70, Nucleated RBC % 0 10/07/22 06:35: Sodium 138, Potassium 3.5, Chloride 108 H, Carbon Dioxide 23.0, Anion Gap 7, BUN 8, Creatinine 1.05, Estim Creat Clear Calc 85.10, Est GFR (MDRD) Af Amer 96, Est GFR (MDRD) Non-Af 80, BUN/Creatinine Ratio 7.6 L, Glucose 116 H, Calcium 9.4 Physical Exam Const alert, oriented x3 and no apparent distress General Appearance: cooperative HEENT normocephalic, head/scalp atraumatic, hearing grossly normal bilaterally and moist oral mucous membranes Head and Scalp: normocephalic Mouth: oral and palatal mucosa normal Eyes PERRL, EOMs intact bilaterally and conjunctivae normal Neck no lymphadenopathy and supple Resp normal respiratory effort, no retractions, no use of accessory muscles and clear to auscultation bilaterally Cardio regular rate, regular rhythm, S1 normal heart sound and S2 normal heart sound GI normal to inspection, nondistended, normoactive bowel sounds, soft to palpation, non-tender and non-distended Extremity normal to inspection, full ROM and no clubbing, cyanosis or edema Neuro oriented x3, CN's II-XII intact bilaterally, moves all extremities and no focal motor deficits Sensorium / Orientation: awake and alert Motor Exam: strength 5/5 throughout Psych affect normal Assessment & Plan Assessment/Plan (1) Hypertensive urgency: PLAN: Plan #Hypertensive urgency due to noncompliance * BP still remains poorly controlled * on amlodipine 10mg daily; started on lisinopril 40mg daily and HCTZ 25mg daily. * 2D echo ordered and pending * IV hydralazine prn * troponins x 3 were negative * * #Hypokalemia: resolved. potassiuim is 3.5 today. #CKD IIIa: Cr has trended down to 1.05. He may therefore have had TREVON rather than CKD III though his baseline has been ~ 1.3 #Nicotine dependence: smokes at least half a pack daily. counseled to quit. Nicotine patch 21mg daily. DVT prophylaxis; lovenox Charges/Coding Visit Charges Inpatient E&M: 14489 Subs Hosp L2
--- NOTE | 2022-10-07 11:50 | CASEMGMT ---
ERASTO RESTREPO DC Planning Assessment: Face to Face with patient for initial transition planning/care coordination. ERASTO RESTREPO introduced self and role at [facility], pt's at bedside and voiced understanding. Pt sleeping soundly and woke up briefly but returned back to sleep. Pt's agreeable to participating in the assessment. Care providers, pharmacy and demographics verified. Admitting Dx: HTN PCP: Stephany Specialists: none Preferred Pharmacy: [facility] Insurance: [employer] with prescription benefit Living will/HPOA: none LNOK: [place] Living arrangements: Pt lives with his and 11yo son in a single story home with 2steps to enter. Pt is independent with all ADLs including self care and household tasks. Transportation:pt drives, is able to drive if needed DME/HHC/SNF: denies Plan: Per pt's , the plan is for pt to return home at discharge. No discharge needs are anticipated. Pt's denies any needs or concerns at this time. Janis Castillo RN CM
--- NOTE | 2022-10-07 16:34 | CHAPLAIN ---
Type of Pastoral Visit _x__ Initial Visit ___ Follow-up Visit ___ On-call Visit ___ General Patient Visit ___ Spiritual Assessment ___ Family Conference ___ Bereavement ___ Rapid Response ___ Code Blue ___ Other (describe below) Pastoral Care Referral From _x__ Patient ___ Family ___ Nurse ___ Physician ___ Armored Machine Operator ___ Health And Safety Tech ___ Other (describe below) Sacrament/Intervention ___ Active listening ___ Anointing ___ Adventism ___ Bereavement ___ Communion ___ Kendy exploration ___ ___ Life review _x__ Prayer ___ Reconciliation ___ Sacrament of Sick ___ Supportive presence ___ Wedding ___ Other (describe below) Pastoral Comments patient was sleeping but awoke easily to his name; pt states that he needs sleep but would welcome a prayer at this time; pt is pleasant but states no other needs at this time
[2022-10-08 03:15] VITALS: BP 147/99; PULSE 67; RESP 15; TEMP 36.8; O2SAT 99
[2022-10-08 06:40] LABS: Absolute Lymphocyte Count 1.55 X10^3/uL (0.83-4.51); Absolute Neutrophil Count 4.5 X10^3/uL (2.0-7.7); Basophil# 0.04 X10^3/uL; Basophil% 0.6 % (0-1); Eosinophil# 0.09 X10^3/uL; Eosinophils% 1.3 % (0-5); Hematocrit 48.3 % (40-54); Hemoglobin 16.5 g/dL (13.0-16.5); Lymphocyte # 1.55 X10^3/ul (0.83-4.51); Lymphocyte % 22.9 % (19-41); Mean Corp Hgb Conc 34.2 g/dL (32-36); Mean Corpuscular Hgb 33.5 pg (27.0-32.0); Mean Corpuscular Volume 98.2 fL (80-94); Monocyte# 0.51 X10^3/uL; Monocyte% 7.5 % (0-10); NRBC Flagged by Analyzer 0 % (0-5); Neutrophil # 4.54 X10^3/uL (2.7-7.7); Platelet Count 201 K/mm3 (150-450); RBC Distribution Width CV 11.9 % (11.6-14.6); RBC Distribution Width SD 42.9 fl (35.1-43.9); Red Blood Count 4.92 M/mm3 (4.6-6.2); White Blood Count 6.8 K/mm3 (4.4-11.0)
[2022-10-08 07:15] LABS: Anion Gap 6 (5-15); BUN 9 mg/dL (7-18); BUN/Creat Ratio 7.4 RATIO (10-20); Calcium,Total 9.6 mg/dL (8.5-10.1); Chloride 102 mmol/L (98-107); Creatinine, Serum 1.22 mg/dL (0.70-1.30); EST Glomerular Filtration Rate 67 mL/min (>60); Est Glom Filt Rate - Afr Amer 81 mL/min (>60); Estimated Creatinine Clearance 73.24 ml/min; Glucose 105 mg/dL (74-106); Potassium 3.4 mmol/L (3.5-5.1); Sodium Level 135 mmol/L (136-145)
[2022-10-08 08:37] VITALS: BP 150/96; PULSE 89; RESP 17; TEMP 36.6; O2SAT 96
[2022-10-08] MEDS: Potassium Chloride Oral Tablet 20 MEQ 40 MEQ PO (08:40)
[2022-10-08] MEDS: hydroCHLOROthiazide 25 MG Tablet PO (08:40)
[2022-10-08] MEDS: amLODIPine 10 MG Tablet PO (08:40)
[2022-10-08] MEDS: Lisinopril 40 MG Tablet PO (08:40)
--- NOTE | 2022-10-08 09:28 | DS.PCM_ITS ---
Providers Date of Admission: 10/06/22 Date of Discharge: 10/08/22 Primary Care Physician: Dr. Colton Hammond MD Reason For Visit: HYPERTENSIVE URGENCY Diagnosis Discharge Diagnosis (1) Hypertensive urgency: Status: Acute Code(s): I16.0 - Hypertensive urgency Plan #Hypertensive urgency due to noncompliance * admit to PCU * resume patient's BP meds- lisinopril, HCTZ and metoprolol * IV hydralazine prn * 2D echo ordered * EKG showed some t wave inversions in the lateral leads not present in previous EKGs * cycle troponins * #Hypokalemia: K is 3.4. Will replace and trend #CKD IIIa: Cr is 1.36, which is around his baseline from 2018. Will monitor #Nicotine dependence: smokes at least half a pack daily. counseled to quit. Nicotine patch 21mg daily. DVT prophylaxis: lovenox COde status: full code * Patient counseled extensively about different types of CODE STATUS including full code, DNR CCA and DNR CCA. Patient elects to be full code. * Total [id number] time 17 minutes. Medications at Discharge Home Medications amlodipine 10 mg tablet 10 mg PO DAILY #30 tabs 10/08/22 hydrochlorothiazide 25 mg tablet 25 mg PO DAILY #30 tabs 10/08/22 lisinopril 40 mg tablet 40 mg PO DAILY #30 tabs 10/08/22 Hospital Course Procedures 2-D Echocardiogram Summary of Care Provided Minutes Spent on Discharge: 47 Hospital Course: KRISTIN CLEMENS, is a 51 M with a PMH as outlined who presents via the ED on 10/06/2022 after being referred from his PCPs office with markedly elevated blood pressure.? Patient has a history of high blood pressure but has not been compliant with his medication for at least 6 months.? He states he was in his usual state of health and went to her PCP appointment because his made him go.? When he went that his blood pressure was checked and his blood pressure was markedly elevated with a systolic over 200.? He was therefore referred to the ED.? He denied any headaches, blurred vision, chest pain, palpitations, dizziness, nausea vomiting or diarrhea.? Review of systems otherwise negative. Vitals in the ED with blood pressure of 194/123, pulse rate of 75 respirate rate of 18 and he was on room air.? CBC showed hemoglobin of 17.8 but was otherwise unremarkable.? Chemistry was significant for potassium of 3.4 and creatinine of 1.36.? Initial troponin was 49.?He was admitted to be managed for hypertensive urgency due to noncompliance. He was started on amlodipine, lisinopril and HCTZ. He had a 2D echo which showed severe left ventricular hypertrophy and EF of 65% and normal LVSF as well as stage I diastolic function, and apical sparing noted on the myocardial strain pattern; cannot completely exclude amyloid. he remained stable and was discharged home on 10/08/2022. He was counseled to follow up with his PCP and was referred to cardiology o/.a of the abnormal 2D echo. HE was also counseled to keep a twice daily BP log and to present it to his PCP for a djustment of his BP meds as needed. Patient seen and examined prior to discharge. He felt much better and had no active complaints. BP had improved. Review of systems was otherwise negative. Labs and vitals reviewed Home meds reviewed and reconciled. Physical Exam Const alert, oriented x3 and no apparent distress General Appearance: cooperative and comfortable Orientation / Consciousness: awake Exam Limitations: no limitations HEENT normocephalic, head/scalp atraumatic, hearing grossly normal bilaterally and moist oral mucous membranes Mouth: oral and palatal mucosa normal Eyes PERRL, EOMs intact bilaterally and conjunctivae normal Neck no lymphadenopathy and supple Resp normal respiratory effort, no retractions, no use of accessory muscles and clear to auscultation bilaterally Cardio regular rate, regular rhythm, S1 normal heart sound and S2 normal heart sound GI normal to inspection, nondistended, normoactive bowel sounds, soft to palpation, non-tender and non-distended Extremity normal to inspection, full ROM and no clubbing, cyanosis or edema Skin no rashes or lesions noted Neuro oriented x3, CN's II-XII intact bilaterally, moves all extremities and no focal motor deficits Sensorium / Orientation: awake and alert Motor Exam: strength 5/5 throughout Psych affect normal Weight / BMI Weight Weight: 259 lb 0.69 oz Body Mass Index (BMI) 38.2 ABG / Lab / Microbiology Data Result Diagrams: 10/08/22 06:20 10/08/22 06:20 Laboratory: Laboratory Results - last 24 hr 10/08/22 06:20: WBC 6.8, RBC 4.92, Hgb 16.5, Hct 48.3, MCV 98.2 H, MCH 33.5 H, MCHC 34.2, RDW Std Deviation 42.9, RDW Coeff of María 11.9, Plt Count 201, MPV 11.0, Immature Gran % (Auto) 0.700, Neut % (Auto) 67.0, Lymph % (Auto) 22.9, Stone % (Auto) 7.5, Eos % (Auto) 1.3, Baso % (Auto) 0.6, Absolute Neuts (auto) 4.5, Absolute Lymphs (auto) 1.55, Nucleated RBC % 0 10/08/22 06:20: Sodium 135 L, Potassium 3.4 L, Chloride 102, Carbon Dioxide 27.0, Anion Gap 6, BUN 9, Creatinine 1.22, Estim Creat Clear Calc 73.24, Est GFR (MDRD) Af Amer 81, Est GFR (MDRD) Non-Af 67, BUN/Creatinine Ratio 7.4 L, Glucose 105, Calcium 9.6 Radiography Diagnostic Testing: Radiology Impression Echocardiogram 10/06/22 15:43 Interpretation Summary Normal LV size. Severe concentric left ventricular hypertrophy. Left ventricular systolic function is normal. The estimated ejection fraction is 65 %. Stage 1 diastolic dysfunction. Apical sparing noted on the myocardial strain pattern. Cannot completely exclude amyloid. The global longitudinal strain = -12.4% (abnormal). The global longitudinal strain is severely abnormal. Apical sparing noted on the myocardial strain pattern. Cannot completely exclude amyloid. Ordering Physician: Ludy Salazar Performed By: Lona Zepeda D/C Instructions Discharge Diet: Low fat / Low cholesterol Discharge Activity: Return to Normal Activity Weight Bearing Status: Weight bearing as tolerated Call your doctor if you observe: Fever of 101 or Higher, Shortness of breath, Dizziness, Swelling in the ankles, Chest pain and Increased palpitations (irregular heartbeat) Meaningful Use Info Meaningful Use Diagnoses (Choose all that apply): None applicable Discharge Plan Admission Admit Date/Time: 10/06/22 10:58 Primary Reason for Your Visit: hypertensive urgency Attending Provider: Ludy Salazar Primary Care Provider: Colton Hammond Instructions Patient Instructions: ED Hypertension, Established, ED High Blood Pressure Hypertension Discharge Orders/Prescriptions Prescriptions: New amlodipine 10 mg Tablet 10 mg PO DAILY Qty: 30 2RF hydrochlorothiazide 25 mg Tablet 25 mg PO DAILY Qty: 30 2RF lisinopril 40 mg Tablet 40 mg PO DAILY Qty: 30 2RF Discontinued amlodipine 5 mg tablet 5 mg PO DAILY Referrals / Follow Up: Colton Hammond MD [Primary Care Provider] - Within 2 Weeks Kota Barba NP, [employer] [Non-Staff] - Natanael Dunn MD [Med Staff - Active Staff] - Within 1 Month (follow for abnormal 2D echo, with concern for amyloid.) Disposition Disposition (needs filled in before D/C Order can be placed): Home, Self Care Charges/Coding Visit Charges Inpatient E&M: 46540 Disch Hosp >30min
--- NOTE | 2022-10-08 09:28 | DCINST_ITS ---
Discharge Instructions Diet Discharge Diet: Low fat / Low cholesterol Activity Discharge Activity: Return to Normal Activity Weight Bearing Status: Weight bearing as tolerated Dressing / Incision Call your doctor if you observe: Fever of 101 or Higher, Shortness of breath, Dizziness, Swelling in the ankles, Chest pain and Increased palpitations (irregular heartbeat) Follow Up Care Test Results: Test results from this visit will be discussed in further detail at your follow- up appointment, if applicable. Discharge Plan Admission Admit Date/Time: 10/06/22 10:58 Primary Reason for Your Visit: hypertensive urgency Attending Provider: Ludy Salazar Primary Care Provider: Colton Hammond Instructions Patient Instructions: ED Hypertension, Established, ED High Blood Pressure Hypertension Discharge Orders/Prescriptions Prescriptions: New amlodipine 10 mg Tablet 10 mg PO DAILY Qty: 30 2RF hydrochlorothiazide 25 mg Tablet 25 mg PO DAILY Qty: 30 2RF lisinopril 40 mg Tablet 40 mg PO DAILY Qty: 30 2RF Discontinued amlodipine 5 mg tablet 5 mg PO DAILY Referrals / Follow Up: Colton Hammond MD [Primary Care Provider] - Within 2 Weeks Kota Barba NP, [employer] [Non-Staff] - Disposition Disposition (needs filled in before D/C Order can be placed): Home, Self Care
== END 2022-10-08 11:24 | disposition home or self-care (01) | DRG 305 ==
LOC: ED 09:53 → PCU 14:25
PROVIDERS: Admitting Provider Student in an Organized Health Care Education/Training Program; Emergency Provider Emergency Medicine; PCP Family Medicine; Visit Provider Student in an Organized Health Care Education/Training Program
DX: I16.0 Hypertensive urgency (principal); E78.5 Hyperlipidemia, unspecified; N18.31 Chronic kidney disease, stage 3a; E87.6 Hypokalemia; F17.210 Nicotine dependence, cigarettes, uncomplicated; I12.9 Hypertensive chronic kidney disease with stage 1 through stage 4 chronic kidney disease, or unspecified chronic kidney disease; R94.31 Abnormal electrocardiogram [ECG] [EKG]; Z66 Do not resuscitate; Z91.14 Patient's other noncompliance with medication regimen
CPT/HCPCS: 36415; 80048; 84484; 85025; 93005; 93306; 99285; 99406; J7030; A4216

== ENCOUNTER 2025-02-08 19:58 | Emergency (ER) | payer BC, SELFPAY ==
[2025-02-08 19:59] VITALS: BP 173/108; PULSE 93; RESP 15; TEMP 36.2; O2SAT 100; BMI 36.2
[2025-02-08 20:55] VITALS: BP 155/99; PULSE 91; RESP 18; O2SAT 100
[2025-02-08 21:49] VITALS: BP 146/98; PULSE 85; RESP 18; O2SAT 98
[2025-02-08 22:00] VITALS: BP 133/83; PULSE 85; RESP 18; O2SAT 100
--- NOTE | 2025-02-08 22:00 | CT_ITS ---
PROCEDURE: SPINE LUMBAR WITHOUT CONTRAST 02/08/2025 REASON FOR EXAM: BACK PAIN TECHNIQUE: Lumbar spine CT without contrast. Coronal and Sagittal reconstruction series were provided. One or more dose reduction techniques were used (e.g., Automated exposure control, adjustment of the mA and/or kV according to patient size, use of iterative reconstruction technique COMPARISON: None. RADIATION DOSE SUMMARY: CTDlvol: 26.35 mGy DLP: A 1029.24 mGycm FINDINGS: No evidence of acute fracture or dislocation. L5-S1 anterior fusion and discectomy. Mild discogenic degenerative changes of the non fused levels. Vertebral body heights are maintained. Moderate atherosclerosis. CT/Spine Lumbar without Contrast IMPRESSION: L5-S1 fusion. Spondylosis. Reading Location: [place] [id number]
--- OUTSIDE RECORDS SUMMARY | 2025-02-08 22:01 | XMS RPT_ITS | CCD ---
Author Organization [facility] ion [facility] Care Team Providers Care Molder Shoulder Pad Name Role Phone AMY VERDUGO Unavailable Unavailable AMY VERDUGO Unavailable Unavailable Freda INTRAVENOUS THERAPY NURSE.YDLAN TORRES Daniel Primary Care Provider Freda BENAVIDES, CHARLENE Escudero Primary Care Provider Dr. Alexa Carbone Emergency Provider Dr. Corry Tovar Admit Provider Dr. Corry Tovar Attending Provider Dr. Corry Tovar Other Provider Dr. Josefa Bautista Attending Provider Freda INTRAVENOUS THERAPY NURSE.DYLAN TORRES Daniel Primary Care Provider Freda INTRAVENOUS THERAPY NURSE.DYLAN TORRES Daniel Primary Care Provider Colton Rosario MD Primary Care Provider [phone] Dr. Willie Terry Emergency Provider Dr. Colton Rosaroi Primary Care Provider Dr. Ludy Salazar Admit Provider Dr. Ludy Salazar Attending Provider Dr. Ludy Salazar Other Provider Dr. Natanael Dunn Attending Provider COLTON ROSARIO Primary Care Unavailable SHUN HOUSTON Attending Unavailable MAINOR PANDEY Referring Unavailable Rachel Morales Attending Unavail able Colton Rosario Referring Unavailable Stephany, Colton Primary Care Unavailable Rachel Morales Attending Unavail able Rachel Morales Referring Unavail able Stephany, Colton Primary Care Unavailable Koram, Ludy Juliana Attending Unavailable Koram, Ludy Juliana Admitting Unavailable Stephany, Colton Primary Care Unavailable Natanael Dunn Attending Unavailable Stephany, Colton Referring Unavailable Stephany, Colton Primary Care Unavailable Mona, [place] Attending Unavailable Stephany, Colton Primary Care Unavailable Koram, Ludy Juliana Admitting Unavailable Stephany, Colton Primary Care Unavailable Koram, Ludy Juliana Consulting Unavailable Koram, Ludy Juliana Attending Unavailable Colton Rosario MD A Primary Care Provider Colton Rosario MD A Primary Care Provider Natanael Dunn MD Unavailable Provider Quinn CAZARES Unavailable Unavailable Freda INTRAVENOUS THERAPY NURSE.SONOGRAPHY TECHNICIAN, Kota RICHARDSON Primary Care Provider Lexy INTRAVENOUS THERAPY NURSE.Ashley TORERS Unavailable Fifi Pierre PA-C Unavailable STEPHANY, COLTON A Primary Care Unavailable ZENAIDA, PELON E Attending Unavailable ZENAIDA, PELON E Referring Unavailable STEPHANY, COLTON A Primary Care Unavailable STEPHANY, COLTON A Attending Unavailable STEPHANY, COLTON A Primary Care Unavailable STEPHANY, COLTON A Primary Care Unavailable ZENAIDA, PELON E Attending Unavailable ZENAIDA, PELON E Referring Unavailable ZENAIDA, PELON E Attending Unavailable ZENAIDA, PELON E Admitting Unavailable STEPHANY, COLTON A Primary Care Unavailable STEPHANY, COLTON A Primary Care Unavailable LEXY, ASHLEY Referring Unavailable STEPHANY, COLTON A Primary Care Unavailable KNOBLE, ASHLEY Attending Unavailable STEPHANY, COLTON A Primary Care Unavailable STEPHANY, COLTON A Attending Unavailable STEPHANY, COLTON A Primary Care Unavailable STEPHANY, COLTON A Attending Unavailable ZENAIDA, PEOLN E Referring Unavailable LEONEL LONGO Attending Unavailable STEPHANY, COLTON A Primary Care Unavailable STEPHANY, COLTON A Primary Care Unavailable ZENAIDA, PELON E Referring Unavailable ZENAIDA, PELON E Attending Unavailable STEPHANY, COLTON A Primary Care Unavailable STEPHANY, COLTON A Primary Care Unavailable TARIK ZHENG Referring Unavailable STEPHANY, COLTON A Primary Care Unavailable CLAUS HINTON Referring Unavailable STEPHANY, COLTON A Primary Care Unavailable LEONEL LONGO Referring Unavailable COLTON ROSARIO Primary Care Unavailable ASHLEY PUGH Attending Unavailable COLTON ROSARIO Primary Care Unavailable COLTON ROSARIO Primary Care Unavailable COLTON ROSARIO Primary Care Unavailable COLTON ROSARIO Referring Unavailable COLTON ROSARIO Primary Care Unavailable COLTON ROSARIO Attending Unavailable COLTON ROSARIO Referring Unavailable COLTON ROSARIO Primary Care Unavailable PELON [place] Referring Unavailable COLTON ROSARIO Primary Care Unavailable Colton Rosario MD Primary Care Provider [phone] Lexy INTRAVENOUS THERAPY NURSE.MELISSA, Ashley Unavailable Fifi Pierre PA-C Unavailable Allergies Allergy Classification Reported Allergen(s) Allergy Type Date of Onset Reaction(s) Facility Benzodiazepines (2 sources) LORazepam Drug Allergy 6 GI Upset [facility] Serotonin Reuptake Inhibitors (SSRIs) (4 sources) PARoxetine Drug Allergy 6 GI Upset [facility] Unclassified (20 sources) Thiazides; Translations: [THIAZIDES] Drug Intolerance 4 Other: See [facility] (20 sources) LORazepam; Translations: [LORAZEPAM] Drug Allergy 6 GI Upset [facility] (20 sources) PARoxetine; Translations: [PAROXETINE HCL] Drug Allergy 6 GI Upset [facility] (20 sources) sertraline; Translations: [SERTRALINE] Drug Allergy 6 GI Upset [facility] (1 source) PARoxetine Drug Allergy 3 [facility] Repository Medications Current Medications Medication Drug Class(es) Dates Sig (Normalized) Sig (Original) amLODIPine 10 mg oral tablet (20 sources) Dihydropyridine Calcium Channel Bhavin Start: 12-21-2024 take 1 tablet by mouth once daily amLODIPine (NORVASC) 10 mg tablet Indications: Hypertension, essential Take 1 tablet by mouth once daily. 90 tablet 1 12/21/2024 Active Start: 01-28-2023 End: 09-17-2024 take 1 tablet by mouth once daily amLODIPine (NORVASC) 10 mg tablet Take 1 tablet by mouth once daily. 90 tablet 1 09/18/2024 Active Start: 10-08-2022 take 10 mg by mouth once daily Amlodipine Active 10 MG PO DAILY October 08, 2022 12:00am Start: 03-03-2022 End: 01-28-2023 take 5 mg by mouth once daily Amlodipine Discontinued 5 MG PO DAILY October 06, 2022 12:48pm October 08, 2022 9:26am Comment on above: Take by mouth once d aily. Take 1 tablet daily Take 1 tablet by tomeka th once daily. amoxicillin 500 mg oral capsule (1 source) Penicillin-class Antibacterial Start: End: take 1 capsule by mouth twice daily amoxicillin (AMOXIL) 500 mg capsule Indications: Strep throat Take 1 capsule by mouth two times a day for 10 days. 20 capsule 07/17/2024 07/27/2024 Active amoxicillin 500 mg / clavulanate 125 mg oral tablet (1 source) Penicillin-class Antibacterial Start: take 1 tablet by mouth twice daily Amoxicillin-Pot Clavulanate (Augmentin) 500-125 mg tablet Active 1 TABLET PO TWICE A DAY 10 March 03, 2022 12:00am cyclobenzaprine hydrochloride 10 mg oral tablet (14 sources) Muscle Relaxant Start: End: take 1 tablet by mouth every eight hours as needed cyclobenzaprine (FLEXERIL) 10 mg tablet Take 1 tablet by mouth three times daily as needed for muscle spasm. 15 tablet 0 02/26/2022 10/06/2022 Discontinued Start: 06-18-2021 End: 10-06-2022 take 1 tablet by mouth every eight hours as needed cyclobenzaprine (FLEXERIL) 5 mg tablet Take 1 tablet by mouth three times daily as needed for muscle spasm. 12 tablet 06/18/2021 10/06/2022 Discontinued Start: 12-16-2020 End: 12-31-2020 take 1 tablet by mouth three times daily as needed for muscle spasms cyclobenzaprine (FLEXERIL) 10 mg tablet Indications: Cervical radiculopathy , Acute pain of right shoulder Take 1 tablet by mouth three times daily as needed for Muscle Spasm for up to 15 days. 45 tablet 12/16/2020 12/31/2020 Comment on above: Take 1 tablet by tomeka th three times daily as needed for muscle spasm. diazePAM 5 mg oral tablet (8 sources) Benzodiazepine Start: 10-22-2023 End: 11-12-2023 diazePAM (VALIUM) 5 mg tablet Indications: Claustrophobia Take one tablet one hour prior to MRI. May repeat times one if needed. Will need airport driver. 2 tablet 0 10/22/2023 11/12/2023 Active Start: 09-24-2023 End: 10-15-2023 diazePAM (VALIUM) 5 mg table t Indications: Claustrophobia Take one tablet one hour prior to MRI. May repeat times one if needed. Will need airport driver. 2 tablet 0 09/24/2023 10/15/2023 Active Start: 06-30-2023 End: 07-21-2023 diazePAM (VALIUM) 5 mg table t Indications: Claustrophobia Take one tablet one hour prior to MRI. May repeat times one if needed. Will need airport driver. 2 tablet 0 06/30/2023 07/21/2023 Active Comment on above: Take one tablet one hour prior to MRI. May repeat times one if needed. Will need airport driver. lisinopril 40 mg oral tablet (20 sources) Angiotensin Converting Enzyme Inhibitor Start: 12-21-2024 take 1 tablet by mouth once daily lisinopril (ZESTRIL) 40 mg tablet Indications: Hypertension, essential Take 1 tablet by mouth once daily. 90 tablet 1 12/21/2024 Active Start: 01-28-2023 End: 09-17-2024 take 1 tablet by mouth once daily lisinopril (ZESTRIL) 40 mg tablet Take 1 tablet by mouth once daily. 90 tablet 1 09/18/2024 Active Start: 10-08-2022 take 40 mg by mouth once daily Lisinopril Active 40 MG PO DAILY October 08, 2022 12:00am Start: 07-14-2020 take 10 mg by mouth once daily Lisinopril Active 10 MG PO DAILY July 14, 2020 1:00am Comment on above: Take 1 tablet by tomeka th once daily. methocarbamol 750 mg oral tablet (18 sources) Muscle Relaxant Start: take 1 tablet by mouth every eight hours as needed for muscle spasms methocarbamol (ROBAXIN) 750 mg tablet Indications: Chronic bilateral low back pain without sciatica , Degeneration of intervertebral disc of lumbar region, unspecified whether pain present 1 tablet by ORAL/FEEDING TUBE route every 8 hours as needed (muscle spasms). 40 tablet 12/21/2024 Active Start: 03-04-2024 take 1 tablet entera l route every eight hours as needed methocarbamol (ROBAXIN) 750 mg tablet 1 tablet by ORAL/FEEDING TUBE route every 8 hours as needed (muscle spasms). 40 tablet 03/04/2024 Active oxyCODONE hydrochloride 5 mg oral tablet (1 source) Opioid Agonist Start: 03-04-2024 End: 03-11-2024 take 1 tablet by mouth every four hours as needed for pain oxyCODONE IR (ROXICODONE) 5 mg immediate release tablet Indications: Post-op pain Take 1 tablet by mouth every 4 hours as needed (severe pain) for up to 30 doses. 30 tablet 0 03/04/2024 03/11/2024 Active rosuvastatin calcium 10 mg oral tablet (20 sources) HMG-CoA Reductase Inhibitor Start: 12-21-2024 take 1 tablet by mouth once daily at bedtime rosuvastatin (CRESTOR) 10 mg tablet Indications: Hypertension, essential Take 1 tablet by mouth daily at bedtime. 30 tablet 5 12/21/2024 Active Start: 02-25-2024 End: 09-17-2024 take 1 tablet by mouth once daily at bedtime rosuvastatin (CRESTOR) 10 mg tablet Take 1 tablet by mouth daily at bedtime. 30 tablet 5 09/18/2024 Active sildenafil 100 mg oral tablet (20 sources) Phosphodiesterase 5 Inhibitor Start: 02-21-2024 End: 09-17-2024 take 1 tablet by mouth once daily as needed sildenafil (VIAGRA) 100 mg tablet Take 1 tablet by mouth once daily as needed. Take 30-60 minutes before sexual activity. 30 tablet 3 09/18/2024 Active spironolactone 50 mg oral tablet (20 sources) Aldosterone Antagonist Start: 12-21-2024 take 1 tablet by mouth once daily spironolactone (ALDACTONE) 50 mg tablet Indications: Bilateral leg edema , Hypertension, essential Take 1 tablet by mouth once daily. 30 tablet 12/21/2024 Active Start: 04-20-2024 End: 09-17-2024 take 1 tablet by mouth once daily spironolactone (ALDACTONE) 50 mg tablet Indications: Bilateral leg edema Take 1 tablet by mouth once daily. 30 tablet 09/18/2024 Active Start: 02-25-2024 End: 04-20-2024 take 1 tablet by mouth once daily spironolactone (ALDACTONE) 25 mg tablet Take 1 tablet by mouth once daily. 30 tablet 5 02/25/2024 04/20/2024 Discontinued Completed/Discontinued Medications Medication Drug Class(es) Dates Sig (Normalized) Sig (Original) atenolol 50 mg oral tablet (1 source) beta-Adrenergic Bhavin Start: 01-19-2017 End: 02-18-2021 take 1 tablet by mouth once daily atenolol (TENORMIN) 50 mg tablet Indications: Palpitations Take 1 tablet by mouth once daily. 90 tablet 3 01/19/2017 02/18/2021 Discontinued atorvastatin 80 mg oral tablet (1 source) HMG-CoA Reductase Inhibitor Start: 01-19-2017 End: 03-17-2021 take 1 tablet by mouth once daily atorvastatin (LIPITOR) 80 mg tablet Take 1 tablet by mouth once daily. 90 tablet 1 01/19/2017 03/17/2021 Discontinued (Course of therapy completed) gabapentin 300 mg oral capsule (20 sources) Anti-epileptic Agent Start: 03-04-2024 End: 11-02-2024 take 1 capsule by mouth three times daily gabapentin (NEURONTIN) 300 mg capsule Take 1 capsule by mouth three times a day for 30 days. 90 capsule 06/21/2024 11/02/2024 Discontinued (Course of therapy completed) Start: 05-05-2023 End: 09-27-2024 take 1 capsule by mouth once daily at bedtime, then take 1 capsule by mouth twice daily, then take 1 capsule by mouth three times daily gabapentin (NEURONTIN) 300 mg capsule Take 1 capsule by mouth daily at bedtime. For 3 days and then one twice a day for three days and then one three times a day as tolerated. 90 capsule 2 09/28/2023 09/27/2024 Active Start: 06-09-2021 End: 10-06-2022 take 1 capsule by mouth three times daily gabapentin (NEURONTIN) 300 mg capsule Indications: Cervical radiculopathy Take 1 capsule by mouth three times daily for 90 days. 90 capsule 2 06/09/2021 10/06/2022 Discontinued Comment on above: Take 1 capsule by mo uth three times daily for 90 days. Take 1 capsule by mo uth daily at bedtime. For 3 days and then one twice a day for three days and then one three times a day as tolerated. hydroCHLOROthiazide 25 mg oral tablet (20 sources) Thiazide Diuretic Start: End: take 1 tablet by mouth once daily hydroCHLOROthiazide 25 mg tablet Take 1 tablet by mouth once daily. 90 tablet 1 01/28/2023 12/08/2023 Discontinued Start: 10-08-2022 take 25 mg by mouth once daily Hydrochlorothiazide Active 25 MG PO DAILY October 08, 2022 12:00am Start: 12-10-2015 take 12.5 mg by mout h once daily Hydrochlorothiazide Active 12.5 MG PO DAILY December 10, 2015 12:00am Comment on above: Take 1 tablet by tomeka th once daily. hydroCHLOROthiazide 12.5 mg / lisinopril 20 mg oral tablet (12 sources) Thiazide Diuretic, Angiotensin Converting Enzyme Inhibitor Start: End: take 1 tablet by mouth once daily in the morning lisinopril-hydroCHL OROthiazide (PRINZIDE,ZESTORETI C) 20-12.5 mg per tablet Indications: Essential hypertension with goal blood pressure less than 140/90 Take 1 tablet by mouth every morning. 90 tablet 1 03/31/2021 10/06/2022 Discontinued Start: 12-16-2020 End: 02-27-2021 take 1 tablet by mouth once daily in the morning lisinopril-hydroCHLOROthiazide (PRINZIDE,ZESTORETIC) 20-12.5 mg per tablet Indications: Essential hypertension with goal blood pressure less than 140/90 Take 1 tablet by mouth every morning. 30 tablet 2 12/16/2020 02/27/2021 Discontinued Comment on above: Take 1 tablet by tomeka th every morning. 2 ml ketorolac tromethamine 30 mg/ml injection (1 source) Nonsteroidal Anti-inflammatory Drug, Cyclooxygenase Inhibitor Start: 04-13-2023 End: 04-13-2023 keTORolac 60 mg injection (Toradol) Start: 04-13-2023 End: 04-13-2023 keTORolac 60 mg injection (T oradol) meloxicam 15 mg oral tablet (1 source) Nonsteroidal Anti-inflammatory Drug Start: 12-16-2020 End: 02-14-2021 take 1 tablet by mouth once daily at mealtime meloxicam (MOBIC) 15 mg tablet Indications: Cervical radiculopathy , Acute pain of right shoulder Take 1 tablet by mouth once daily. With food. 30 tablet 1 12/16/2020 02/14/2021 24 hr metoprolol succinate 50 mg extended release oral tablet (6 sources) beta-Adrenergic Bhavin Start: 06-09-2021 End: 11-05-2022 take 1 tablet by mouth once daily metoprolol succinate ER (TOPROL XL) 50 mg 24 hr tablet Indications: Essential hypertension with goal blood pressure less than 140/90 , Tachycardia, unspecified Take 1 tablet by mouth once daily. 90 tablet 1 06/09/2021 11/05/2022 Discontinued Comment on above: Take 1 tablet by tomeka once daily. polyethylene glycol 3350 430331 mg / potassium chloride 2970 mg / sodium bicarbonate 6740 mg / sodium chloride 5860 mg / sodium sulfate 82512 mg powder for oral solution (1 source) Osmotic Laxative Start: 11-17-2022 End: 11-17-2022 peg 3350-Electrolytes (GOLYTELY) 236-22.74-6.74 -5.86 gram suspension Take 4,000 mL by mouth one time only for 1 dose. 1 Each 0 11/17/2022 11/17/2022 Comment on above: Take 4,000 mL by tomeka one time only for 1 dose. predniSONE 10 mg oral tablet (7 sources) Start: 09-20-2024 End: 11-02-2024 predniSONE (DELTASONE) 10 mg tablet Take 6 tabs by mouth for 3 days then 4 tabs a day for 3 days then 2 tabs a day for 3 days and then 1 tab a day for 3 days. 39 tablet 09/20/2024 11/02/2024 Discontinued (Course of therapy completed) Start: 04-13-2023 End: 04-25-2023 predniSONE (DELTASONE) 10 mg tablet Indications: Acute midline low back pain without sciatica Take 6 tabs for 3 days, then 4 tabs for 3 days, then 2 tabs for 3 days then 1 tab for 3 days with food. 39 tablet 0 04/13/2023 04/25/2023 Active Start: 03-31-2023 End: 04-09-2023 predniSONE (DELTASONE) 10 mg tablet Take 4 tabs daily for 3 days, then 2 tabs daily for 3 days, then 1 tab daily for 3 days with food. 21 tablet 03/31/2023 04/09/2023 Start: 02-26-2022 End: 03-03-2022 take 2 tablets by mouth once daily predniSONE (DELTASONE) 20 mg tablet Take 2 tablets by mouth once daily for 5 days. 10 tablet 0 02/26/2022 03/03/2022 Active Start: 12-07-2020 End: 12-16-2020 predniSONE (DELTASONE) 10 mg tablet Take 4 tabs daily for 3 days, then 2 tabs daily for 3 days, then 1 tab daily for 3 days with food. 21 tablet 12/07/2020 12/16/2020 Comment on above: Take 2 tablets by [facility] once daily for 5 days. Take 6 tabs for 3 da ys, then 4 tabs for 3 days, then 2 tabs for 3 days then 1 tab for 3 days with food. tadalafil 20 mg oral tablet (20 sources) Phosphodiesterase 5 Inhibitor Start: 11-06-19 End: 02-21-20 24 take 1 tablet by mouth once daily as needed Tadalafil (CIALIS) 20 mg tablet Take 1 tablet by mouth once daily. As needed. 30 tablet 2 09/14/2023 02/21/2024 Discontinued (Changing Therapy/Dosage Form) Comment on above: Take [address] [facility] once daily. As needed. varenicline 1 mg oral tablet (14 sources) Partial Cholinergic Nicotinic Agonist Start: 01-19-20 End: 02-21-20 24 take 1 tablet by mouth once daily varenicline (CHANTIX STARTING MONTH BOX) 0.5 mg (11)- 1 mg (42) tablet Take 0.5 mg by mouth once daily on Days 1 through 3, THEN 0.5 mg twice daily on Days 4 through 7, THEN 1 mg twice daily on Day 8 and thereafter 53 tablet 0 01/19/2024 02/21/2024 Discontinued Start: 01-19-2024 End: 02-21-2024 take 1 tablet by mouth twice daily at mealtime varenicline (CHANTIX CONTINUING MONTH BOX) 1 mg tablet Take 1 tablet by mouth two times a day with meals. Start the month after the starter pack 60 tablet 4 01/19/2024 02/21/2024 Discontinued Problems Active Problems Problem Classification Problem Date Documented Da te Episodic/Chronic Acute and unspecified renal failure (6 sources) Acute renal failure syndrome; Translations: [Acute kidney failure, unspecified] Episodic Administrative/social admission (1 source) Patient encounter status; Translations: [Tobacco abuse counseling] 01-19-2024 Episodic Anxiety disorders (20 sources) Agoraphobia; Translations: [Agoraphobia, unspecified] Onset: 01-24-2015 02-20-2015 Chronic Chronic kidney disease (20 sources) Chronic renal insufficiency; Translations: [Chronic kidney disease, unspecified] Onset: 03-03-2024 10-06-2022 Chronic Disorders of lipid metabolism (20 sources) Mixed hyperlipidemia; Translations: [Mixed hyperlipidemia] Onset: 06-28-2014 12-25-2015 Chronic Essential hypertension (20 sources) Essential hypertension; Translations: [Essential (primary) hypertension] Onset: 06-28-2014 12-25-2015 Chronic Fluid and electrolyte disorders (10 sources) Hypokalemia; Translations: [Hypokalemia] Episodic Hepatitis (20 sources) Steatohepatitis; Translations: [Nonalcoholic steatohepatitis (TORRES)] Onset: 03-28-2016 02-21-2024 Chronic Hypertension with complications and secondary hypertension (6 sources) Hypertensive urgency ; Translations: [Hypertensive urgency] Onset: 10-08-2022 10-06-2022 Chronic Immunizations and screening for infectious disease (2 sources) Vaccination needed; Translations: [Encounter for immunization] Onset: 11-02-2024 11-02-2024 Episodic Mood disorders (4 sources) Agitated depression; Translations: [Major depressive disorder, single episode, severe without psychotic features] 03-01-2022 Chronic Other and ill-defined heart disease (20 sources) Left ventricular hypertrophy; Translations: [Cardiomegaly] Onset: 11-05-2022 11-05-2022 Chronic Other and ill-defined heart disease (1 source) Cardiomegaly; Translations: [LVH (left ventricular hypertrophy)] Onset: 11-05-2022 Chronic Other connective tissue disease (1 source) Pain in left lower limb; Translations: [Pain in left leg] 04-08-2023 Episodic Other connective tissue disease (1 source) Diastasis recti; Translations: [Separation of muscle (nontraumatic), other site] 09-20-2024 Episodic Other connective tissue disease (1 source) Tendonitis of left shoulder; Translations: [Other enthesopathies, not elsewhere classified] 09-20-2024 Episodic Other fractures (4 sources) Pseudoarthrosis of spine; Translations: [Fracture of neck, unspecified, subsequent encounter] 01-14-2024 Episodic Other gastrointestinal disorders (4 sources) Diarrhea; Translations: [Diarrhea, unspecified] 03-11-2022 Episodic Other gastrointestinal disorders (2 sources) Diarrhea, unspecified; Translations: [Diarrhea] Episodic Other hematologic conditions (1 source) Erythrocytosis; Translations: [Secondary polycythemia] Episodic Other liver diseases (4 sources) Enzyme level - finding; Translations: [Elevated transaminase measurement] Episodic Other lower respiratory disease (4 sources) Viral respiratory infection; Translations: [Other specified respiratory disorders] 07-15-2020 Episodic Other lower respiratory disease (2 sources) Dyspnea; Translations: [Shortness of breath] 04-20-2024 Episodic Other lower respiratory disease (2 sources) Cough; Translations: [Acute cough] 07-17-2024 Episodic Other male genital disorders (20 sources) Secondary erectile dysfunction; Translations: [Male erectile dysfunction, unspecified] Onset: 11-05-2022 11-05-2022 Chronic Other nervous system disorders (3 sources) Metabolic encephalopathy; Translations: [Metabolic encephalopathy] 03-03-2022 Chronic Other nervous system disorders (1 source) Metabolic encephalopathy; Translations: [Metabolic encephalopathy] Chronic Other nervous system disorders (1 source) Slurred speech; Translations: [Slurred speech] Episodic Other nervous system disorders (1 source) Paresthesia; Translations: [Paresthesia of skin] 05-28-2023 Episodic Other non-traumatic joint disorders (1 source) Pain in left shoulder; Translations: [Pain in joint, shoulder region] 09-20-2024 Episodic Other nutritional; endocrine; and metabolic disorders (20 sources) Obese class II; Translations: [Obesity, unspecified] Onset: 12-16-2020 12-16-2020 Chronic Other nutritional; endocrine; and metabolic disorders (4 sources) Obesity; Translations: [Obesity, unspecified] 03-01-2022 Chronic Other nutritional; endocrine; and metabolic disorders (1 source) Amyloidosis, unspecified; Translations: [Amyloidosis, unspecified] Onset: 07-13-2023 Chronic Other nutritional; endocrine; and metabolic disorders (20 sources) Morbid obesity; Translations: [Morbid (severe) obesity due to excess calories] Onset: 02-16-2024 02-16-2024 Chronic Other nutritional; endocrine; and metabolic disorders (20 sources) Hypercalcemia; Translations: [Hypercalcemia] Onset: 02-23-2024 02-21-2024 Chronic Other nutritional; endocrine; and metabolic disorders (1 source) Morbid (severe) obesity due to excess calories; Translations: [Morbid obesity (HCC)] Onset: 02-16-2024 Chronic Other nutritional; endocrine; and metabolic disorders (1 source) Hypercalcemia; Translations: [Hypercalcemia] Onset: 02-23-2024 Chronic Other screening for suspected conditions (not mental disorders or infectious disease) (4 sources) CT of chest abnormal; Translations: [Abnormal findings on diagnostic imaging of other specified body structures] Chronic Other upper respiratory infections (2 sources) Sore throat symptom; Translations: [Acute pharyngitis, unspecified] 07-17-2024 Episodic Pneumonia (except that caused by tuberculosis or sexually transmitted disease) (2 sources) Pneumonia; Translations: [Pneumonia, unspecified organism] Episodic Residual codes; unclassified (20 sources) Obstructive sleep apnea syndrome; Translations: [Obstructive sleep apnea (adult) (pediatric)] 04-29-2021 Chronic Residual codes; unclassified (1 source) Obstructive sleep apnea (adult) (pediatric); Translations: [JOSELITO (obstructive sleep apnea)] Onset: 04-29-2021 Chronic Residual codes; unclassified (3 sources) Tobacco user; Translations: [Tobacco use] 03-01-2022 Episodic Residual codes; unclassified (1 source) Family history of prostate cancer; Translations: [Family history of malignant neoplasm of prostate] Episodic Residual codes; unclassified (1 source) Family history of malignant neoplasm of digestive organs; Translations: [Family history of colon cancer] Onset: 02-03-2023 Episodic Residual codes; unclassified (1 source) History of operative procedure on lumbosacral spinal structure; Translations: [Other specified postprocedural states] 12-15-2023 Episodic Residual codes; unclassified (3 sources) Bilateral lower limb edema; Translations: [Localized edema] 04-20-2024 Episodic Spondylosis; intervertebral disc disorders; other back problems (20 sources) Degeneration of lumbar intervertebral disc; Translations: [Other intervertebral disc degeneration, lumbar region] Onset: 05-17-2023 04-08-2023 Chronic Substance-related disorders (20 sources) Smoker; Translations: [Nicotine dependence, unspecified, uncomplicated] Onset: 07-10-2016 08-26-2021 Chronic Unclassified (1 source) Unknown / UNK(Unknown) Onset: 07-02-2017 Unclassified (1 source) Obesity, Class II, BMI 35-39.9; Translations: [Obesity, Class II, BMI 35-39.9] Onset: 11-02-2024 Unclassified (1 source) Acute cough; Translations: [Acute cough] Onset: 07-17-2024 Viral infection (1 source) Viral disease; Translations: [Viral infection, unspecified] Episodic Past or Other Problems Problem Classification Problem Date Documented Date Episodic/Chronic Acute posthemorrhagic anemia (18 sources) Acute posthemorrhagic anemia; Translations: [Acute posthemorrhagic anemia] Onset: 03-03-2024 03-03-2024 Episodic Alcohol-related disorders (1 source) Current drinker; Translations: [Alcohol use] Onset: 07-10-2016 Resolved: 01-22-2023 01-22-2023 Chronic Cardiac dysrhythmias (20 sources) Palpitations; Translations: [Palpitations] Onset: 06-28-2014 Resolved: 01-22-2023 08-25-2021 Episodic Complications of surgical procedures or medical care (18 sources) Pulmonary insufficiency following surgery; Translations: [Acute pulmonary insufficiency following nonthoracic surgery] Onset: 03-03-2024 Resolved: 03-04-2024 03-04-2024 Episodic Diabetes mellitus without complication (20 sources) Abnormal glucose tolerance test; Translations: [Other abnormal glucose] Onset: 02-16-2024 02-09-2024 Episodic Other and unspecified benign neoplasm (20 sources) Neurofibroma; Translations: [Benign neoplasm of peripheral nerves and autonomic nervous system, unspecified] Onset: 08-13-2014 08-25-2021 Episodic Other connective tissue disease (20 sources) Mass of forearm; Translations: [Other specified soft tissue disorders] Onset: 05-17-2023 05-05-2023 Episodic Other liver diseases (20 sources) Steatosis of liver; Translations: [Fatty (change of) liver, not elsewhere classified] Onset: 03-28-2016 Resolved: 02-21-2024 03-28-2016 Chronic Other lower respiratory disease (1 source) Shortness of breath; Translations: [SOB (shortness of breath)] Onset: 04-20-2024 Episodic Other nervous system disorders (20 sources) Numbness of hand; Translations: [Anesthesia of skin] Onset: 05-17-2023 05-05-2023 Episodic Other nervous system disorders (18 sources) Postoperative pain ; Translations: [Other acute postprocedural pain] Onset: 03-03-2024 03-03-2024 Episodic Other nervous system disorders (1 source) Other acute postprocedural pain; Translations: [Post-op pain] Onset: 03-03-2024 Episodic Other non-traumatic joint disorders (20 sources) Pain in right shoulder; Translations: [Pain in joint, shoulder region] Onset: 12-18-2020 Resolved: 03-28-2021 03-28-2021 Episodic Other nutritional; endocrine; and metabolic disorders (18 sources) Body mass index 40+ - severely obese; Translations: [Morbid (severe) obesity due to excess calories] Onset: 03-02-2024 Resolved: 11-02-2024 03-02-2024 Chronic Other screening for suspected conditions (not mental disorders or infectious disease) (20 sources) Other specified abnormal findings of blood chemistry; Translations: [Other abnormal blood chemistry] Onset: 03-28-2016 03-28-2016 Episodic Residual codes; unclassified (20 sources) Current drinker; Translations: [Other problems related to lifestyle] Onset: 07-10-2016 Resolved: 01-22-2023 08-26-2021 Episodic Residual codes; unclassified (20 sources) Family history of cancer of colon; Translations: [Family history of malignant neoplasm of digestive organs] Onset: 09-28-2014 Episodic Residual codes; unclassified (20 sources) History of surgical procedure on cervical spine; Translations: [Other specified postprocedural states] Onset: 06-17-2021 05-05-2023 Episodic Residual codes; unclassified (1 source) Localized edema; Translations: [Bilateral leg edema] Onset: 04-20-2024 Episodic Screening and history of mental health and substance abuse codes (20 sources) Ex-smoker; Translations: [Personal history of nicotine dependence] Onset: 02-16-2024 02-16-2024 Episodic Shock (18 sources) Cardiogenic shock; Translations: [Cardiogenic shock] Onset: 03-03-2024 Resolved: 03-04-2024 03-04-2024 Episodic Spondylosis; intervertebral disc disorders; other back problems (20 sources) Acute back pain with sciatica; Translations: [Lumbago with sciatica, left side] Onset: 07-03-2011 Resolved: 01-22-2023 Episodic Results Test Name Value Interpretation Reference Range Facility [facility] 12-21-2024 CN Office Visit (DEMETRA ) -- JASON MOORE CLAYTON ([id number]) 1970 M Date Time Provider Department 12/21/24 11:00 AM ASHLEY PUGH During your visit today, we recorded the following information about you: Pulse Blood pressure Weight 89/minute 171/107 116 kg Ashley Pugh APRN.SONOGRAPHY TECHNICIAN 12/21/2024 11:21 AM Signed Chief Complaint Patient presents with: Back Pain: Low back pain X 6 days HPI Jason Moore is a 54 year old male who presents here today for Above Complaints.. Patient presents for acute on chronic low back pain x6 days. Upon initial eval BP 171/107. Patient reports he has not taken his BP meds for over a week as he has been out of them. Reports he has been using biofreeze, ibuprofen, heat and foam roller with no improvement in symptoms. Denies numbness/tingling to lower extremities. Past medical history, appointments, medications, allergies reviewed. Previous Medical History PAST MEDICAL HISTORY Diagnosis Date Abnormal echocardiogram 02/16/2024 Alcohol use 07/10/2016 3-5 day Back pain Cervical radiculopathy 12/16/2020 DDD (degenerative disc disease), lumbar 05/17/2023 ED (erectile dysfunction) of organic origin 11/05/2022 Elevated hemoglobin A1c 02/21/2024 Family history of colon cancer 09/28/2014 Fatty liver 03/28/2016 Former smoker 02/16/2024 H/O cervical spine surgery 06/17/2021 Heart rate fast on BB Hypercalcemia 02/23/2024 Possibly HCTZ related Hypertension Hypertension, essential 06/28/2014 LVH (left ventricular hypertrophy) 11/05/2022 With grade 1 Solomon dysfunction. Metabolic dysfunction-associated steatohepatitis (MASH) 03/28/2016 Mixed hyperlipidemia 06/28/2014 Morbid obesity (HCC) 02/16/2024 Obesity, Class II, BMI 35-39.9 12/16/2020 JOSELITO (obstructive sleep apnea) resolved with weight loss Spinal stenosis in cervical region Spinal stenosis of cervical region 03/26/2021 Tachycardia, unspecified on BB Previous Surgical History PAST SURGICAL HISTORY Procedure Laterality Date ALLOGRAFT FOR SPINE SURGERY ONLY STRUCTURAL 08/30/2011 FUSION AND REPLACED DISC lumbar ANTERIOR INSTRUMENTATION 2-3 VERTEBRAL SEGMENTS APPL-INTERVERTEBRAL BIOMECHANICAL DEVICES COLONOSCOPY FLX DX W/COLLJ SPEC WHEN PFRMD 09/28/2014 Colonoscopy, repeat 5 yrs PAST SURGICAL HISTORY OF back injections and disc biopsy PAST SURGICAL HISTORY OF 06/17/2021 C5-C6, C6-C7 anterior cervical discectomy and fusion, Insertion of intervertebral interbody device at C5-C6, C6-C7, anterior spinal instrumentation C5-C7, Use of structural allograft Family History FAMILY HISTORY Problem Relation Age of Onset Colon Cancer Father 50 Diabetes Father Hypertension Father Prostate Cancer Father 54 Colon Cancer Paternal Grandfather Diabetes Paternal Grandfather Prostate Cancer Paternal Grandfather 50'S Hypertension Paternal Grandmother Coronary Artery Disease Maternal Aunt Hypertension Maternal Aunt Hypertension Maternal Aunt Diabetes Paternal Aunt Hypertension Paternal Aunt Colon Cancer Paternal Uncle LATE 50'S Diabetes Paternal Uncle Hypertension Paternal Uncle Prostate Cancer Paternal Uncle 50'S Anesthesia Problems No Family History Patient Allergies ALLERGIES Allergen Reactions Ativan [Lorazepam] GI Upset Hctz [Thiazides] Other: See Comments hypercalcemia Paxil [Paroxetine H* GI Upset diarrhea Zoloft [Sertraline] GI Upset Current Medications Current Outpatient Medications on File Prior to Visit Medication Sig sildenafil (VIAGRA) 100 mg tablet Take 1 tablet by mouth once daily as needed. Take 30-60 minutes before sexual activity. methocarbamol (ROBAXIN) 750 mg tablet 1 tablet by ORAL/FEEDING TUBE route every 8 hours as needed (muscle spasms). No current facility-administered medications on file prior to visit. Social History Social History Tobacco Use Smoking status: Former Current packs/day: 0.00 Average packs/day: 0.5 packs/day for 21.0 years (10.5 ttl pk-yrs) Types: Cigarettes Start date: 01/13/2003 Quit date: 01/14/2024 Years since quittin.9 Smokeless tobacco: Never Vaping Use Vaping status: Never Used Substance Use Topics Alcohol use: Yes Alcohol/week: 12.0 standard drinks of alcohol Types: 12 Cans of Beer (12oz) per week Comment: x 1 day ago, 2 cocktails and beer Drug use: Never Review of Symptoms REVIEW OF SYSTEMS SEE HPI EXAM: BP 171/107 Pulse 89 Wt 116 kg (255 lb 11.7 oz) BMI 37.22 kg/m? General Appearance: Well appearing, alert, in no acute distress, well-hydrated, well nourished.. Back:Full ROM with flexion, extension limited. Tenderness with palpation of bilateral muscles of the lumbar region. reflexes are 2+ and symmetric, motor and sensory appear to be normal, negative SLR test Health Maintenance List Depression Screening Never done Pneumococcal Vaccine: 50+ (more content not included)... [facility] CNOVon 11-02-2024 CNOV Office Visit (FAMPWS ) -- JASON MOORE ([id number]) 1970 M Date Time Provider Department 3/6/25 3:20 PM COLTON ROSARIO During your visit today, we recorded the following information about you: Pulse Blood pressure Weight Height 90/minute 90/64 117.5 kg 1.765 m Colton Rosario MD 11/02/2024 8:19 PM Signed Chief Complaint [facility] presents with[facility] 53 [facility] who presents here today for routine f/u PMHx: HTN, high cholesterol, impaired fasting glucose, obesity, tobacco use and alcohol use. At last appt patient was placed on prednisone and referred to PHYSICAL THERAPY for left shoulder pain. Patient started doing a HEP program his son gave him who is in PHYSICAL THERAPY school. This has helped and slowly continues to improve. The steroid burst was also helpful. Currently pleased with progression and want to continue with the HEP Patient otherwise has been doing well. Past medical history, appointments, medications, allergies reviewed. Previous Medical History PAST MEDICAL HISTORY Diagnosis Date Abnormal echocardiogram 02/16/2024 Alcohol use 07/10/2016 3-5 day Back pain Cervical radiculopathy 12/16/2020 DDD (degenerative disc disease), lumbar 05/17/2023 ED (erectile dysfunction) of organic origin 11/05/2022 Elevated hemoglobin A1c 02/21/2024 Family history of colon cancer 09/28/2014 Fatty liver 03/28/2016 Former smoker 02/16/2024 H/O cervical spine surgery 06/17/2021 Heart rate fast on BB Hypercalcemia 02/23/2024 Possibly HCTZ related Hypertension Hypertension, essential 06/28/2014 LVH (left ventricular hypertrophy) 11/05/2022 With grade 1 Solomon dysfunction. Metabolic dysfunction-associated steatohepatitis (MASH) 03/28/2016 Mixed hyperlipidemia 06/28/2014 Morbid obesity (HCC) 02/16/2024 Obesity, Class II, BMI 35-39.9 12/16/2020 JOSELITO (obstructive sleep apnea) resolved with weight loss Spinal stenosis in cervical region Spinal stenosis of cervical region 03/26/2021 Tachycardia, unspecified on BB Previous Surgical History PAST SURGICAL HISTORY Procedure Laterality Date ALLOGRAFT FOR SPINE SURGERY ONLY STRUCTURAL 08/30/2011 FUSION AND REPLACED DISC lumbar ANTERIOR INSTRUMENTATION 2-3 VERTEBRAL SEGMENTS APPL-INTERVERTEBRAL BIOMECHANICAL DEVICES COLONOSCOPY FLX DX W/COLLJ SPEC WHEN PFRMD 09/28/2014 Colonoscopy, repeat 5 yrs PAST SURGICAL HISTORY OF back injections and disc biopsy PAST SURGICAL HISTORY OF 06/17/2021 C5-C6, C6-C7 anterior cervical discectomy and fusion, Insertion of intervertebral interbody device at C5-C6, C6-C7, anterior spinal instrumentation C5-C7, Use of structural allograft Family History FAMILY HISTORY Problem Relation Age of Onset Colon Cancer Father 50 Diabetes Father Hypertension Father Prostate Cancer Father 54 Colon Cancer Paternal Grandfather Diabetes Paternal Grandfather Prostate Cancer Paternal Grandfather 50'S Hypertension Paternal Grandmother Coronary Artery Disease Maternal Aunt Hypertension Maternal Aunt Hypertension Maternal Aunt Diabetes Paternal Aunt Hypertension Paternal Aunt Colon Cancer Paternal Uncle LATE 50'S Diabetes Paternal Uncle Hypertension Paternal Uncle Prostate Cancer Paternal Uncle 50'S Anesthesia Problems No Family History Patient Allergies ALLERGIES Allergen Reactions Ativan [Lorazepam] GI Upset Hctz [Thiazides] Other: See Comments hypercalcemia Paxil [Paroxetine H* GI Upset diarrhea Zoloft [Sertraline] GI Upset Current Medications Current Outpatient Medications on File Prior to Visit Medication Sig predniSONE (DELTASONE) 10 mg tablet Take 6 tabs by mouth for 3 days then 4 tabs a day for 3 days then 2 tabs a day for 3 days and then 1 tab a day for 3 days. sildenafil (VIAGRA) 100 mg tablet Take 1 tablet by mouth once daily as needed. Take 30-60 minutes before sexual activity. rosuvastatin (CRESTOR) 10 mg tablet Take 1 tablet by mouth daily at bedtime. amLODIPine (NORVASC) 10 mg tablet Take 1 tablet by mouth once daily. lisinopril (ZESTRIL) 40 mg tablet Take 1 tablet by mouth once daily. spironolactone (ALDACTONE) 50 mg tablet Take 1 tablet by mouth once daily. gabapentin (NEURONTIN) 300 mg capsule Take 1 capsule by mouth three times a day for 30 days. methocarbamol (ROBAXIN) 750 mg tablet 1 tablet by ORAL/FEEDING TUBE route every 8 hours as needed (muscle spasms). No current facility-administered medications on file prior to visit. Social History Social History Tobacco Use Smoking status: Former Current packs/day: 0.00 Average packs/day: 0.5 packs/day for 21.0 years (10.5 ttl pk-yrs) Types: Cigarettes Start date: 01/13/2003 Quit date: 01/14/2024 Years since quittin.8 Smokeless tobacco: Never Vaping Use Vaping status: Never Used Substance Use Topics Alcoh (more content not included)... [facility] CNOVon 09-20-2024 CNOV Office Visit (FAMPWS ) -- JASON MOORE ([id number]) 1970 M Date Time Provider Department 09/20/24 3:40 PM COLTON ROSARIO During your visit today, we recorded the following information about you: Pulse Respiration Blood pressure Weight 92/minute 18/minute 140/88 121.6 kg Colton Rosario MD 09/20/2024 6:58 PM Signed Chief Complaint Patient presents with: Pain: Left shoulder pain HPI Jason Moore is a 53 year old male who presents here today for 6 month follow up PMHx: HTN, high cholesterol, impaired fasting glucose, obesity, tobacco use and alcohol use. Patient has been having left shoulder; stomach swelling. Pain has been 0-1 and up to 5/10 at it's worse. The pain starts in the front of his left shoulder and then crainal nerves be in the upper back (pointing to the supraspinatus area). Certain movent will make it hurt more but not with lifting tings. No arm weakness or numbness. Picu Nurse strength seems ok but if he cardroom plastic card grader something he can feel the discomfort. No pain with laying on it and wont wake him up at night. Has taken ibuprofen, and a bio freeze like roll on. This helps ease up the pain but it has not resolved. Has a bulge from his abdomen when he sits up. Not sure what it is and doesn't hurt. Procedure: ARTHRODESIS CERVICAL POSTERIOR, BELOW C2 1ST SINGLE LEVEL with Surgeon Dr. Pelon Greenfield on 03/03/2024 Past medical history, appointments, medications, allergies reviewed. Previous Medical History PAST MEDICAL HISTORY Diagnosis Date Abnormal echocardiogram 02/16/2024 Alcohol use 07/10/2016 3-5 day Back pain Cervical radiculopathy 12/16/2020 DDD (degenerative disc disease), lumbar 05/17/2023 ED (erectile dysfunction) of organic origin 11/05/2022 Elevated hemoglobin A1c 02/21/2024 Family history of colon cancer 09/28/2014 Fatty liver 03/28/2016 Former smoker 02/16/2024 H/O cervical spine surgery 06/17/2021 Heart rate fast on BB Hypercalcemia 02/23/2024 Possibly HCTZ related Hypertension Hypertension, essential 06/28/2014 LVH (left ventricular hypertrophy) 11/05/2022 With grade 1 Solomon dysfunction. Metabolic dysfunction-associated steatohepatitis (MASH) 03/28/2016 Mixed hyperlipidemia 06/28/2014 Morbid obesity (HCC) 02/16/2024 Obesity, Class II, BMI 35-39.9 12/16/2020 JOSELITO (obstructive sleep apnea) resolved with weight loss Spinal stenosis in cervical region Spinal stenosis of cervical region 03/26/2021 Tachycardia, unspecified on BB Previous Surgical History PAST SURGICAL HISTORY Procedure Laterality Date ALLOGRAFT FOR SPINE SURGERY ONLY STRUCTURAL 08/30/2011 FUSION AND REPLACED DISC lumbar ANTERIOR INSTRUMENTATION 2-3 VERTEBRAL SEGMENTS APPL-INTERVERTEBRAL BIOMECHANICAL DEVICES COLONOSCOPY FLX DX W/COLLJ SPEC WHEN PFRMD 09/28/2014 Colonoscopy, repeat 5 yrs PAST SURGICAL HISTORY OF back injections and disc biopsy PAST SURGICAL HISTORY OF 06/17/2021 C5-C6, C6-C7 anterior cervical discectomy and fusion, Insertion of intervertebral interbody device at C5-C6, C6-C7, anterior spinal instrumentation C5-C7, Use of structural allograft Family History FAMILY HISTORY Problem Relation Age of Onset Colon Cancer Father 50 Diabetes Father Hypertension Father Prostate Cancer Father 54 Colon Cancer Paternal Grandfather Diabetes Paternal Grandfather Prostate Cancer Paternal Grandfather 50'S Hypertension Paternal Grandmother Coronary Artery Disease Maternal Aunt Hypertension Maternal Aunt Hypertension Maternal Aunt Diabetes Paternal Aunt Hypertension Paternal Aunt Colon Cancer Paternal Uncle LATE 50'S Diabetes Paternal Uncle Hypertension Paternal Uncle Prostate Cancer Paternal Uncle 50'S Anesthesia Problems No Family History Patient Allergies ALLERGIES Allergen Reactions Ativan [Lorazepam] GI Upset Hctz [Thiazides] Other: See Comments hypercalcemia Paxil [Paroxetine H* GI Upset diarrhea Zoloft [Sertraline] GI Upset Current Medications Current Outpatient Medications on File Prior to Visit Medication Sig sildenafil (VIAGRA) 100 mg tablet Take 1 tablet by mouth once daily as needed. Take 30-60 minutes before sexual activity. rosuvastatin (CRESTOR) 10 mg tablet Take 1 tablet by mouth daily at bedtime. amLODIPine (NORVASC) 10 mg tablet Take 1 tablet by mouth once daily. lisinopril (ZESTRIL) 40 mg tablet Take 1 tablet by mouth once daily. spironolactone (ALDACTONE) 50 mg tablet Take 1 tablet by mouth once daily. gabapentin (NEURONTIN) 300 mg capsule Take 1 capsule by mouth three times a day for 30 days. methocarbamol (ROBAXIN) 750 mg tablet 1 tablet by ORAL/FEEDING TUBE route every 8 hours as needed (muscle spasms). No current facility-administered medications on file prior to visit. Social History Social History Tobacco Use Smoking status: Former Current packs/day: 0.00 (more content not included)... [facility] CNOVon 07-17-2024 [facility] Office Visit (UCWSTR ) -- JASON MOORE SHANEPAM ([id number]) 1970 M Date Time Provider Department 07/17/24 9:00 AM TARIK ZHENG [facility] During your visit today, we recorded the following information about you: Temperature Pulse Respiration Blood pressure 99.1 degrees 88/minute 18/minute 168/102 Weight 122.9 kg Tarik Zheng APRN.CNP 07/17/2024 9:46 AM Signed CC: Patient presents with: Chest Congestion: cough and sore throat x 2 weeks HPI: Jason Moore is a 53 year old male who presents to the office with complaint of chest congestion, cough, nonproductive, and sore throat for 2 weeks. Symptoms are staying the same. Associated symptoms includes wheezing and dyspnea. Denies nausea, vomiting , and diarrhea. Treatments tried include nothing so far. with no relief of symptoms. Sick contacts: unknown. History of asthma, frequent episodes of bronchitis, chronic bronchitis, bronchiectasis or COPD: No Smoker: No Seasonal/environmental allergies: No The ROS is otherwise negative. The patient's pmh, medications, allergies, and past visits are reviewed. PHYSICAL EXAM: BP 168/102 Pulse 88 Temp 37.3 ?C (99.1 ?F) Resp 18 Wt 122.9 kg (270 lb 15.1 oz) SpO2 95% BMI 39.44 kg/m? General appearance: alert, cooperative, pleasant, in no acute distress Head: Normocephalic Eyes: EOM's intact, conjunctiva pink and moist, no icterus, sclera white, non-injected Ears: Right ear: External ear/canal- Normal, TM - clear with good landmarks. Left ear: External ear/canal- Normal, TM - clear with good landmarks Oropharynx:mild erythema, without exudates present Heart: Negative. RRR without obvious murmur, gallop, or rubs. No ectopy. Lungs: moderate wheezing diffusely PAST MEDICAL HISTORY Diagnosis Date Abnormal echocardiogram 02/16/2024 Alcohol use 07/10/2016 3-5 day Back pain Cervical radiculopathy 12/16/2020 DDD (degenerative disc disease), lumbar 05/17/2023 ED (erectile dysfunction) of organic origin 11/05/2022 Elevated hemoglobin A1c 02/21/2024 Family history of colon cancer 09/28/2014 Fatty liver 03/28/2016 Former smoker 02/16/2024 H/O cervical spine surgery 06/17/2021 Heart rate fast on BB Hypercalcemia 02/23/2024 Possibly HCTZ related Hypertension Hypertension, essential 06/28/2014 LVH (left ventricular hypertrophy) 11/05/2022 With grade 1 Solomon dysfunction. Metabolic dysfunction-associated steatohepatitis (MASH) 03/28/2016 Mixed hyperlipidemia 06/28/2014 Morbid obesity (HCC) 02/16/2024 Obesity, Class II, BMI 35-39.9 12/16/2020 JOSELITO (obstructive sleep apnea) resolved with weight loss Spinal stenosis in cervical region Spinal stenosis of cervical region 03/26/2021 Tachycardia, unspecified on BB PAST SURGICAL HISTORY Procedure Laterality Date ALLOGRAFT FOR SPINE SURGERY ONLY STRUCTURAL 08/30/2011 FUSION AND REPLACED DISC lumbar ANTERIOR INSTRUMENTATION 2-3 VERTEBRAL SEGMENTS APPL-INTERVERTEBRAL BIOMECHANICAL DEVICES COLONOSCOPY FLX DX W/COLLJ SPEC WHEN PFRMD 09/28/2014 Colonoscopy, repeat 5 yrs PAST SURGICAL HISTORY OF back injections and disc biopsy PAST SURGICAL HISTORY OF 06/17/2021 C5-C6, C6-C7 anterior cervical discectomy and fusion, Insertion of intervertebral interbody device at C5-C6, C6-C7, anterior spinal instrumentation C5-C7, Use of structural allograft ALLERGIES Ativan [Lorazepam], Hctz [Thiazides], Paxil [Paroxetine Hcl], and Zoloft [Sertraline] MEDICATIONS gabapentin (NEURONTIN) 300 mg capsule Take 1 capsule by mouth three times a day for 30 days. spironolactone (ALDACTONE) 50 mg tablet Take 1 tablet by mouth once daily. methocarbamol (ROBAXIN) 750 mg tablet 1 tablet by ORAL/FEEDING TUBE route every 8 hours as needed (muscle spasms). rosuvastatin (CRESTOR) 10 mg tablet Take 1 tablet by mouth daily at bedtime. sildenafil (VIAGRA) 100 mg tablet Take 1 tablet by mouth once daily as needed. Take 30-60 minutes before sexual activity. amLODIPine (NORVASC) 10 mg tablet Take 1 tablet by mouth once daily. lisinopril (ZESTRIL) 40 mg tablet Take 1 tablet by mouth once daily. FAMILY HISTORY Problem Relation Age of Onset Colon Cancer Father 50 Diabetes Father Hypertension Father Prostate Cancer Father 54 Colon Cancer Paternal Grandfather Diabetes Paternal Grandfather Prostate Cancer Paternal Grandfather 50'S Hypertension Paternal Grandmother Coronary Artery Disease Maternal Aunt Hypertension Maternal Aunt Hypertension Maternal Aunt Diabetes Paternal Aunt Hypertension Paternal Aunt Colon Cancer Paternal Uncle LATE 50'S Diabetes Paternal Uncle Hypertension Paternal Uncle Prostate Cancer Paternal Uncle 50'S Anesthesia Problems No Family History Social History Tobacco Use Smoking status: Former Current packs/day: 0.00 Average packs/day: 0.5 packs/day for 21.0 years (10.5 ttl pk-yrs) (more content not included)... [facility] STREP A MOLECULAR (POC)on Interpretation and review of laboratory results Abnormal [facility] Procedural Control Valid [facility] Strep A (POCT) Positive Abnormal Negative [facility] XR CHEST 2V FRONTAL/LATon XR CHEST 2V FRONTAL/LAT * * *Final Report* * * DATE OF EXAM: Jul 17 2024 9:36AM WOX [id number] - XR CHEST 2V FRONTAL/LAT / PROCEDURE REASON: Acute cough * * * * Physician Interpretation * * * * EXAMINATION: CHEST RADIOGRAPH (2 VIEW FRONTAL and LATERAL) CLINICAL HISTORY: Acute cough MQ: XC2_6 EXAM DATE/TIME: 07/17/2024 9:36 AM COMPARISON: Chest x-ray 04/20/2024 RESULT: Lines, tubes, and devices: None. Lungs and pleura: No consolidation. No lung mass. No pleural effusion. No pneumothorax. Cardiomediastinal silhouette: Normal cardiomediastinal silhouette. Bones and soft tissues: Unremarkable. IMPRESSION: No acute radiographic abnormality. Parachute Manufacturing Supervisor: [facility] Transcribe Date/Time: Jul 17 2024 9:38A Dictated by : PAVEL SCOTT MD This examination was interpreted and the report reviewed and electronically signed by: PAVEL SCOTT MD on Jul 17 2024 9:39AM EST [id number] [facility] XR Chest PA and Lateralon IMPRESSION: No acute radiographic abnormality. [employer]achute Manufacturing Supervisor[facility] Transcribe Date/Time: Jul 17 2024 9:38A Dictated by : PAVEL SCOTT MD This examination was interpreted and the report reviewed and electronically signed by: PAVEL SCOTT MD on Jul 17 2024 9:39AM EST DIVISION OF RADIOLOGY * * *Final Report* * * DATE OF EXAM: Jul 17 2024 9:36AM WOX [id number] - XR CHEST 2V FRONTAL/LAT / PROCEDURE REASON: Acute cough * * * * Physician Interpretation * * * * EXAMINATION: CHEST RADIOGRAPH (2 VIEW FRONTAL & LATERAL) CLINICAL HISTORY: Acute cough MQ: XC2_6 EXAM DATE/TIME: 07/17/2024 9:36 AM COMPARISON: Chest x-ray 04/20/2024 RESULT: Lines, tubes, and devices: None. Lungs and pleura: No consolidation. No lung mass. No pleural effusion. No pneumothorax. Cardiomediastinal silhouette: Normal cardiomediastinal silhouette. Bones and soft tissues: Unremarkable. DIVISION OF RADIOLOGY Provider, [facility] - 07/17/2024 * * *Final Report* * * DATE OF EXAM: Jul 17 2024 9:36AM WOX [id number] - XR CHEST 2V FRONTAL/LAT / PROCEDURE REASON: Acute cough * * * * Physician Interpretation * * * * EXAMINATION: CHEST RADIOGRAPH (2 VIEW FRONTAL & LATERAL) CLINICAL HISTORY: Acute cough MQ: XC2_6 EXAM DATE/TIME: 07/17/2024 9:36 AM COMPARISON: Chest x-ray 04/20/2024 RESULT: Lines, tubes, and devices: None. Lungs and pleura: No consolidation. No lung mass. No pleural effusion. No pneumothorax. Cardiomediastinal silhouette: Normal cardiomediastinal silhouette. Bones and soft tissues: Unremarkable. IMPRESSION IMPRESSION: No acute radiographic abnormality. Parachute Manufacturing Supervisor: [facility] Transcribe Date/Time: Jul 17 2024 9:38A Dictated by : PAVEL SCOTT MD This examination was interpreted and the report reviewed and electronically signed by: PAVEL SCOTT MD on Jul 17 2024 9:39AM EST [facility] Radiology Study observation (narrative) [facility] XR Chest PA and LateralOrder ed By: [facility] JASON MOORE CLAYTON ([id number]) 1970 M Date Time Provider Department 06/20/24 [facility] During your visit today, we recorded the following information about you: Mainor Maldonado, ERASTO 06/20/2024 4:49 PM Signed Pt states he was weaning himself off the medication and he thinks he weaned himself off too early. He states Dr Rosario and his surgeon told him not to get off too early. Pt states he has been off for a month, and he isn't ok any more. Pt reports the nerve pain is a 4/10 tingling and the muscle pain is a 5/10 pulsating/jumping. Pt states if provider needs to see him that is fine. Pt asks that provider call and leave hi a VM or MyChart message to let him know if he called in medication, or if he needs an appointment. The patient has been identified by name and date of : Yes Caregiver verified no other encounters exist for this prescription request: Yes Caregiver confirmed with patient/requestor that no other refills are due, in the near future, with this provider at this time: Yes The last office visit in the department: 04/20/2024 Does the patient have a future office visit with this provider/department: Yes 08/14/2024 Requested Prescriptions Pending Prescriptions Disp Refills gabapentin (NEURONTIN) 300 mg capsule 90 capsule 0 Sig: Take 1 capsule by mouth three times a day for 30 days. Mainor Maldonado RN June 20, 2024 4:45 PM Colton Rosario MD 06/21/2024 8:43 AM Signed This should be addressed by [facility]. Will forward. Mainor Maldonado RN 06/21/2024 10:18 AM Signed Called and left a detailed voicemail notifying patient of providers message that medication should be addressed by [facility]. I let hi know that the message had been sent to his spine surgery team that he is still working with. Clinic phone number was left in case patient had any questions. ERASTO Trivedi Alfred J, PA-C 06/21/2024 1:48 PM Signed Contacted patient to discuss issues with stopping gabapentin, advised to contact our office to discuss symptoms and re-starting gabapentin. Refill sent to pharmacy as requested by patient Patient's request for medication is as follows: Requested Prescriptions Pending Prescriptions Disp Refills gabapentin (NEURONTIN) 300 mg capsule 90 capsule 0 Sig: Take 1 capsule by mouth three times a day for 30 days. Leonel Longo PA-C Spine Surgery ЮлияAraseli 06/21/2024 3:31 PM Signed Pt returned call. Please call back. [phone] Oksana Diaz RN 06/22/2024 10:50 AM Signed Neuro SPINE CARE COORDINATION QUICK NOTE Returned call to patient with no answer. Left message on identified VM. Informed patient that gabapentin was sent to pharmacy. Requested call back to office for update on symptoms. Allergies As of Date: 06/20/2024 Noted Allergy Reaction ATIVAN (LORAZEPAM) 06/10/2016 8 - GI Upset HCTZ (THIAZIDES) 02/25/2024 14 - Other: See Comments Comments: hypercalcemia PAXIL (PAROXETINE HCL) 12/25/2015 8 - GI Upset Comments: diarrhea ZOLOFT (SERTRALINE) 06/10/2016 8 - GI Upset Date Reviewed: 04/20/2024 Reviewed by: Jadon Martinez MA - Fully Assessed Reason for Visit: Refill Request [94] Order(s):gabapentin (NEURONTIN) 300 mg capsuleTake 1 capsule by mouth three times a day for 30 days.Disp: 90 capsuleRfl: 0 Prescriptions as of 06/26/2024 - gabapentin (NEURONTIN) 300 mg capsule Take 1 capsule by mouth three times a day for 30 days. - spironolactone (ALDACTONE) 50 mg tablet Take 1 tablet by mouth once daily. - methocarbamol (ROBAXIN) 750 mg tablet 1 tablet by ORAL/FEEDING TUBE route every 8 hours as needed (muscle spasms). - rosuvastatin (CRESTOR) 10 mg tablet Take 1 tablet by mouth daily at bedtime. - sildenafil (VIAGRA) 100 mg tablet Take 1 tablet by mouth once daily as needed. Take 30-60 minutes before sexual activity. - amLODIPine (NORVASC) 10 mg tablet Take 1 tablet by mouth once daily. - lisinopril (ZESTRIL) 40 mg tablet Take 1 tablet by mouth once daily. Problem List As Of Date 06/20/2024 Noted Resolved Left-sided low back pain without sciatica [M54.*07/03/2011 Hypertension, essential [I10] 06/28/2014 Palpitations [R00.2] 06/28/2014 01/22/2023 Mixed hyperlipidemia [E78.2] 06/28/2014 Well adult exam [Z00.00] 06/28/2014 Neurofibroma [D36.10] 08/13/2014 Family history of colon cancer [Z80.0] 09/28/2014 Agoraphobia [F40.00] 01/24/2015 Situational anxiety [F41.8] 01/24/2015 Fatty liver [K76.0] 03/28/2016 02/21/2024 Metabolic dysfunction-associated steatohepatiti*03/28/2016 Chronic bilateral low back pain without sciatic*06/10/2016 Prostate cancer screening [Z12.5] 07/10/2016 Smoker [F17.200] 07/10/2016 Alcohol use [Z78.9] 07/10/2016 01/22/2023 Cervical radiculopathy [M54.12] 12/16/2020 Acute pain of right shoulder [M25.511] 12/18/2020 03/28/2021 Spinal (more content not included)... [facility] JASON MOORE ([id number]) 1970 M Date Time Provider Department 04/25/24 [facility]SHLEY PUGH [facility] During your visit today, we recorded the following information about you: Ashley Pugh APRN.[facility] 04/25/2024 9:48 AM Signed Please let patient know his labs are stable. His potassium is slightly low at 3.6. I would encourage him to increase intake of potassium rich foods. Jadon Martinez MA 04/25/2024 9:54 AM Signed Left message for patient to return call to office DANIELLE Calderon Lori, LPN 04/25/2024 3:31 PM Signed Pt was given results AND voiced understanding. Pt states the swelling is more in his ankles AND feet now AND not so much in his legs, denies any pain. States he has been back to work X 2 days AND maybe up AND moving around is help reduce the swelling. Pt is asking what his next step is? CINTHIA Salvador Danielle, APRN.[facility] 04/25/2024 3:34 PM Signed Would encourage patient to continue to stay active as this seems to be helping the swelling. When sitting patient should have legs elevated. Supports socks can also be very helpful with swelling. Jadon Martinez MA 04/25/2024 4:01 PM Signed Pt notified and verbalized understanding Jadon Martinez MA Allergies As of Date: 04/25/2024 Noted Allergy Reaction ATIVAN (LORAZEPAM) 06/10/2016 8 - GI Upset HCTZ (THIAZIDES) 02/25/2024 14 - Other: See Comments Comments: hypercalcemia PAXIL (PAROXETINE HCL) 12/25/2015 8 - GI Upset Comments: diarrhea ZOLOFT (SERTRALINE) 06/10/2016 8 - GI Upset Date Reviewed: 04/20/2024 Reviewed by: Jadon Martinez MA - Fully Assessed Reason for Visit: Results [95] Prescriptions as of 04/25/2024 - spironolactone (ALDACTONE) 50 mg tablet Take 1 tablet by mouth once daily. - methocarbamol (ROBAXIN) 750 mg tablet 1 tablet by ORAL/FEEDING TUBE route every 8 hours as needed (muscle spasms). - gabapentin (NEURONTIN) 300 mg capsule Take 1 capsule by mouth three times a day for 30 days. - gabapentin (NEURONTIN) 300 mg capsule Take 1 capsule by mouth three times a day for 30 days. - rosuvastatin (CRESTOR) 10 mg tablet Take 1 tablet by mouth daily at bedtime. - sildenafil (VIAGRA) 100 mg tablet Take 1 tablet by mouth once daily as needed. Take 30-60 minutes before sexual activity. - amLODIPine (NORVASC) 10 mg tablet Take 1 tablet by mouth once daily. - lisinopril (ZESTRIL) 40 mg tablet Take 1 tablet by mouth once daily. Problem List As Of Date 04/25/2024 Noted Resolved Left-sided low back pain without sciatica [M54.*07/03/2011 Hypertension, essential [I10] 06/28/2014 Palpitations [R00.2] 06/28/2014 01/22/2023 Mixed hyperlipidemia [E78.2] 06/28/2014 Well adult exam [Z00.00] 06/28/2014 Neurofibroma [D36.10] 08/13/2014 Family history of colon cancer [Z80.0] 09/28/2014 Agoraphobia [F40.00] 01/24/2015 Situational anxiety [F41.8] 01/24/2015 Fatty liver [K76.0] 03/28/2016 02/21/2024 Metabolic dysfunction-associated steatohepatiti*03/28/2016 Chronic bilateral low back pain without sciatic*06/10/2016 Prostate cancer screening [Z12.5] 07/10/2016 Smoker [F17.200] 07/10/2016 Alcohol use [Z78.9] 07/10/2016 01/22/2023 Cervical radiculopathy [M54.12] 12/16/2020 Acute pain of right shoulder [M25.511] 12/18/2020 03/28/2021 Spinal stenosis of cervical region [M48.02] 03/26/2021 Tachycardia, unspecified [R00.0] 01/22/2023 JOSELITO (obstructive sleep apnea) [G47.33] H/O cervical spine surgery [Z98.890] 06/17/2021 LVH (left ventricular hypertrophy) [I51.7] 11/05/2022 ED (erectile dysfunction) of organic origin [N5*11/05/2022 DDD (degenerative disc disease), lumbar [M51.36]05/17/2023 Hand numbness [R20.0] 05/17/2023 Former smoker [Z87.891] 02/16/2024 Morbid obesity (HCC) [E66.01] 02/16/2024 Abnormal echocardiogram [R93.1] 02/16/2024 Screening for prostate cancer [Z12.5] 02/21/2024 Elevated hemoglobin A1c [R73.09] 02/21/2024 Hypercalcemia [E83.52] 02/23/2024 Obesity, Class III, BMI >= 40 [E66.01] 03/02/2024 Cervical radicular pain [M54.12] 03/03/2024 Cardiogenic shock (HCC) [R57.0] 03/03/2024 03/04/2024 Acute postoperative pulmonary insufficiency (HC*03/03/2024 03/04/2024 Stress hyperglycemia [R73.9] 03/03/2024 Acute blood loss anemia [D62] 03/03/2024 Acute postop pain NEC [G89.18] 03/03/2024 Chronic kidney disease [N18.9] 03/03/2024 Encounter Status:Closed by WORKMAN JADON WHITE on 04/25/24 [facility] CNOVon 04-20-2024 CNOV Office Visit (FAMPWS ) -- JASON MOORE ([id number]) 1970 M Date Time Provider Department 04/20/24 1:40 PM [facility] During your visit today, we recorded the following information about you: Pulse Respiration Blood pressure Weight 102/minute 16/minute 135/82 134.3 kg Ashley Pugh APRN.[facility] 04/20/2024 2:04 PM Signed Chief Complaint Patient presents with: Edema: Leg/ feet swelling X 1.5 weeks HPI Jason Moore is a 53 year old male who presents here today for Above Complaints.. Patient presents for leg swelling for a week and a half. Patient denies any changes to medications. Patient was started on spironolactone in January. Previously on HCTZ which caused hypercalcemia and was discontinued. Past medical history, appointments, medications, allergies reviewed. Previous Medical History PAST MEDICAL HISTORY 02/16/2024: Abnormal echocardiogram 07/10/2016: Alcohol use Comment: 3-5 day No date: Back pain 12/16/2020: Cervical radiculopathy 05/17/2023: DDD (degenerative disc disease), lumbar 11/05/2022: ED (erectile dysfunction) of organic origin 02/21/2024: Elevated hemoglobin A1c 09/28/2014: Family history of colon cancer 03/28/2016: Fatty liver 02/16/2024: Former smoker 06/17/2021: H/O cervical spine surgery No date: Heart rate fast Comment: on BB 02/23/2024: Hypercalcemia Comment: Possibly HCTZ related No date: Hypertension 06/28/2014: Hypertension, essential 11/05/2022: LVH (left ventricular hypertrophy) Comment: With grade 1 Solomon dysfunction. 03/28/2016: Metabolic dysfunction-associated steatohepatitis (MASH) 06/28/2014: Mixed hyperlipidemia 02/16/2024: Morbid obesity (HCC) 12/16/2020: Obesity, Class II, BMI 35-39.9 No date: JOSELITO (obstructive sleep apnea) Comment: resolved with weight loss No date: Spinal stenosis in cervical region 03/26/2021: Spinal stenosis of cervical region No date: Tachycardia, unspecified Comment: on BB Previous Surgical History PAST SURGICAL HISTORY 08/30/2011: ALLOGRAFT FOR SPINE SURGERY ONLY STRUCTURAL Comment: FUSION AND REPLACED DISC lumbar No date: ANTERIOR INSTRUMENTATION 2-3 VERTEBRAL SEGMENTS No date: APPL-INTERVERTEBRAL BIOMECHANICAL DEVICES 09/28/2014: COLONOSCOPY FLX DX W/COLLJ SPEC WHEN PFRMD Comment: Colonoscopy, repeat 5 yrs No date: PAST SURGICAL HISTORY OF Comment: back injections and disc biopsy 06/17/2021: PAST SURGICAL HISTORY OF Comment: C5-C6, C6-C7 anterior cervical discectomy and fusion, Insertion of intervertebral interbody device at C5-C6, C6-C7, anterior spinal instrumentation C5-C7, Use of structural allograft Family History FAMILY HISTORY Problem Relation Age of Onset Colon Cancer Father 50 Diabetes Father Hypertension Father Prostate Cancer Father 54 Colon Cancer Paternal Grandfather Diabetes Paternal Grandfather Prostate Cancer Paternal Grandfather 50'S Hypertension Paternal Grandmother Coronary Artery Disease Maternal Aunt Hypertension Maternal Aunt Hypertension Maternal Aunt Diabetes Paternal Aunt Hypertension Paternal Aunt Colon Cancer Paternal Uncle LATE 50'S Diabetes Paternal Uncle Hypertension Paternal Uncle Prostate Cancer Paternal Uncle 50'S Anesthesia Problems No Family History Patient Allergies ALLERGIES Allergen Reactions Ativan [Lorazepam] GI Upset Hctz [Thiazides] Other: See Comments hypercalcemia Paxil [Paroxetine H* GI Upset diarrhea Zoloft [Sertraline] GI Upset Current Medications Current Outpatient Medications on File Prior to Visit Medication Sig methocarbamol (ROBAXIN) 750 mg tablet 1 tablet by ORAL/FEEDING TUBE route every 8 hours as needed (muscle spasms). gabapentin (NEURONTIN) 300 mg capsule Take 1 capsule by mouth three times a day for 30 days. gabapentin (NEURONTIN) 300 mg capsule Take 1 capsule by mouth three times a day for 30 days. rosuvastatin (CRESTOR) 10 mg tablet Take 1 tablet by mouth daily at bedtime. spironolactone (ALDACTONE) 25 mg tablet Take 1 tablet by mouth once daily. sildenafil (VIAGRA) 100 mg tablet Take 1 tablet by mouth once daily as needed. Take 30-60 minutes before sexual activity. amLODIPine (NORVASC) 10 mg tablet Take 1 tablet by mouth once daily. lisinopril (ZESTRIL) 40 mg tablet Take 1 tablet by mouth once daily. No current facility-administered medications on file prior to visit. Social History Social History Tobacco Use Smoking status: Former Current packs/day: 0.00 Average packs/day: 0.5 packs/day for 21.0 years (10.5 ttl pk-yrs) Types: Cigarettes Start date: 01/13/2003 Quit date: 01/14/2024 Years since quittin.2 Smokeless tobacco: Never Vaping Use Vaping status: Never Used Substance Use Topics Alcohol use: Yes Alcohol/week: 12.0 standard drinks of alcohol Types: 12 Cans of Beer (12oz) per week Comment: x 1 day ago, 2 cocktails and be (more content not included)... [facility] CNOV Office Visit (SPNSST ) -- JASON MOORE ([id number]) 1970 M Date Time Provider Department 04/20/24 10:10 AM PELON GREENFIELD During your visit today, we recorded the following information about you: Weight Height 127 kg 1.765 m Leonel Longo PA-C 04/20/2024 11:10 AM Signed Spine Surgery Post-Op Visit HPI: Returns to clinic 6 weeks s/p cervical foraminotomy DATE OF SURGERY/PROCEDURE: 03/03/2024 SURGEON: Pelon Greenfield M.D. SURGERY/PROCEDURE: 1. Right C5-6 and C6-7 posterior foraminotomy with the use of operating microscope. 2. Exploration of fusion SURGERY/PROCEDURE DATE: 06/17/2021 SURGEON: Flip Gonzalez MD - Primary SURGERY/PROCEDURE(S): C5-C6, C6-C7 anterior cervical discectomy and fusion, Insertion of intervertebral interbody device at C5-C6, C6-C7, anterior spinal instrumentation C5-C7, Use of structural allograft; INSTRUMENTATION: 6mm structural allograft at C5-C6, C6-C7 with a K2M anterior plate. Doing great, RUE pain/numbness resolved since surgery Mild neck/trap pain, likely more muscle pain, manageable, he is not taking any medications Working with his internal medicine MD for his BP issues, improving Exam: Incision is well-healed Motor: 5/5 SILT Assessment/Plan: 6 weeks s/p R C5-6, C6-7 foraminotomy; doing great Continue with neck exercises RTW planned for next week Follow-up 6 months post-op NACHO Coyne MD Spine Surgery Referring Provider: PELON GREENFIELD [[id number]] Allergies As of Date: 04/20/2024 Noted Allergy Reaction ATIVAN (LORAZEPAM) 06/10/2016 8 - GI Upset HCTZ (THIAZIDES) 02/25/2024 14 - Other: See Comments Comments: hypercalcemia PAXIL (PAROXETINE HCL) 12/25/2015 8 - GI Upset Comments: diarrhea ZOLOFT (SERTRALINE) 06/10/2016 8 - GI Upset Date Reviewed: 04/20/2024 Reviewed by: Stephen Baeza OCCA - Fully Assessed Reason for Visit: Follow Up [171] Post Op [174] Neck Pain [135] Cmt: Patient states having 0/10 pain. ROM is good. Primary Visit Diagnosis:Radiculopathy, cervical region [M54.12] Prescriptions as of 04/20/2024 - methocarbamol (ROBAXIN) 750 mg tablet 1 tablet by ORAL/FEEDING TUBE route every 8 hours as needed (muscle spasms). - gabapentin (NEURONTIN) 300 mg capsule Take 1 capsule by mouth three times a day for 30 days. - gabapentin (NEURONTIN) 300 mg capsule Take 1 capsule by mouth three times a day for 30 days. - rosuvastatin (CRESTOR) 10 mg tablet Take 1 tablet by mouth daily at bedtime. - spironolactone (ALDACTONE) 25 mg tablet Take 1 tablet by mouth once daily. - sildenafil (VIAGRA) 100 mg tablet Take 1 tablet by mouth once daily as needed. Take 30-60 minutes before sexual activity. - amLODIPine (NORVASC) 10 mg tablet Take 1 tablet by mouth once daily. - lisinopril (ZESTRIL) 40 mg tablet Take 1 tablet by mouth once daily. Problem List As Of Date 04/20/2024 Noted Resolved Left-sided low back pain without sciatica [M54.*07/03/2011 Hypertension, essential [I10] 06/28/2014 Palpitations [R00.2] 06/28/2014 01/22/2023 Mixed hyperlipidemia [E78.2] 06/28/2014 Well adult exam [Z00.00] 06/28/2014 Neurofibroma [D36.10] 08/13/2014 Family history of colon cancer [Z80.0] 09/28/2014 Agoraphobia [F40.00] 01/24/2015 Situational anxiety [F41.8] 01/24/2015 Fatty liver [K76.0] 03/28/2016 02/21/2024 Metabolic dysfunction-associated steatohepatiti*03/28/2016 Chronic bilateral low back pain without sciatic*06/10/2016 Prostate cancer screening [Z12.5] 07/10/2016 Smoker [F17.200] 07/10/2016 Alcohol use [Z78.9] 07/10/2016 01/22/2023 Cervical radiculopathy [M54.12] 12/16/2020 Acute pain of right shoulder [M25.511] 12/18/2020 03/28/2021 Spinal stenosis of cervical region [M48.02] 03/26/2021 Tachycardia, unspecified [R00.0] 01/22/2023 JOSELITO (obstructive sleep apnea) [G47.33] H/O cervical spine surgery [Z98.890] 06/17/2021 LVH (left ventricular hypertrophy) [I51.7] 11/05/2022 ED (erectile dysfunction) of organic origin [N5*11/05/2022 DDD (degenerative disc disease), lumbar [M51.36]05/17/2023 Hand numbness [R20.0] 05/17/2023 Former smoker [Z87.891] 02/16/2024 Morbid obesity (HCC) [E66.01] 02/16/2024 Abnormal echocardiogram [R93.1] 02/16/2024 Screening for prostate cancer [Z12.5] 02/21/2024 Elevated hemoglobin A1c [R73.09] 02/21/2024 Hypercalcemia [E83.52] 02/23/2024 Obesity, Class III, BMI >= 40 [E66.01] 03/02/2024 Cervical radicular pain [M54.12] 03/03/2024 Cardiogenic shock (HCC) [R57.0] 03/03/2024 03/04/2024 Acute postoperative pulmonary insufficiency (HC*03/03/2024 03/04/2024 Stress hyperglycemia [R73.9] 03/03/2024 Acute blood loss anemia [D62] 03/03/2024 Acute postop pain NEC [G89.18] 03/03/2024 Chronic kidney disease [N18.9] 03/03/2024 Encounter Status:Closed by LEONEL LONGO on 04/20/24 [facility] CNPNon 04-20-2024 CNPN Telephone [facility] -- JASON MOORE ([id number]) 1970 M Date Time Provider Department 04/20/24 ASHLEY PUGH [facility] During your visit today, we recorded the following information about you: Ashley Pugh APRN.[employer] TECHNICIAN 04/20/2024 5:16 PM Signed Please let patient know their xray is normal. Jadon Martinez MA 04/20/2024 5:23 PM Signed Pt notified and verbalized understanding Jadon Martinez MA Allergies As of Date: 04/20/2024 Noted Allergy Reaction ATIVAN (LORAZEPAM) 06/10/2016 8 - GI Upset HCTZ (THIAZIDES) 02/25/2024 14 - Other: See Comments Comments: hypercalcemia PAXIL (PAROXETINE HCL) 12/25/2015 8 - GI Upset Comments: diarrhea ZOLOFT (SERTRALINE) 06/10/2016 8 - GI Upset Date Reviewed: 04/20/2024 Reviewed by: Jadon Martinez MA - Fully Assessed Reason for Visit: Results [95] Prescriptions as of 04/20/2024 - spironolactone (ALDACTONE) 50 mg tablet Take 1 tablet by mouth once daily. - methocarbamol (ROBAXIN) 750 mg tablet 1 tablet by ORAL/FEEDING TUBE route every 8 hours as needed (muscle spasms). - gabapentin (NEURONTIN) 300 mg capsule Take 1 capsule by mouth three times a day for 30 days. - gabapentin (NEURONTIN) 300 mg capsule Take 1 capsule by mouth three times a day for 30 days. - rosuvastatin (CRESTOR) 10 mg tablet Take 1 tablet by mouth daily at bedtime. - sildenafil (VIAGRA) 100 mg tablet Take 1 tablet by mouth once daily as needed. Take 30-60 minutes before sexual activity. - amLODIPine (NORVASC) 10 mg tablet Take 1 tablet by mouth once daily. - lisinopril (ZESTRIL) 40 mg tablet Take 1 tablet by mouth once daily. Problem List As Of Date 04/20/2024 Noted Resolved Left-sided low back pain without sciatica [M54.*07/03/2011 Hypertension, essential [I10] 06/28/2014 Palpitations [R00.2] 06/28/2014 01/22/2023 Mixed hyperlipidemia [E78.2] 06/28/2014 Well adult exam [Z00.00] 06/28/2014 Neurofibroma [D36.10] 08/13/2014 Family history of colon cancer [Z80.0] 09/28/2014 Agoraphobia [F40.00] 01/24/2015 Situational anxiety [F41.8] 01/24/2015 Fatty liver [K76.0] 03/28/2016 02/21/2024 Metabolic dysfunction-associated steatohepatiti*03/28/2016 Chronic bilateral low back pain without sciatic*06/10/2016 Prostate cancer screening [Z12.5] 07/10/2016 Smoker [F17.200] 07/10/2016 Alcohol use [Z78.9] 07/10/2016 01/22/2023 Cervical radiculopathy [M54.12] 12/16/2020 Acute pain of right shoulder [M25.511] 12/18/2020 03/28/2021 Spinal stenosis of cervical region [M48.02] 03/26/2021 Tachycardia, unspecified [R00.0] 01/22/2023 JOSELITO (obstructive sleep apnea) [G47.33] H/O cervical spine surgery [Z98.890] 06/17/2021 LVH (left ventricular hypertrophy) [I51.7] 11/05/2022 ED (erectile dysfunction) of organic origin [N5*11/05/2022 DDD (degenerative disc disease), lumbar [M51.36]05/17/2023 Hand numbness [R20.0] 05/17/2023 Former smoker [Z87.891] 02/16/2024 Morbid obesity (HCC) [E66.01] 02/16/2024 Abnormal echocardiogram [R93.1] 02/16/2024 Screening for prostate cancer [Z12.5] 02/21/2024 Elevated hemoglobin A1c [R73.09] 02/21/2024 Hypercalcemia [E83.52] 02/23/2024 Obesity, Class III, BMI >= 40 [E66.01] 03/02/2024 Cervical radicular pain [M54.12] 03/03/2024 Cardiogenic shock (HCC) [R57.0] 03/03/2024 03/04/2024 Acute postoperative pulmonary insufficiency (HC*03/03/2024 03/04/2024 Stress hyperglycemia [R73.9] 03/03/2024 Acute blood loss anemia [D62] 03/03/2024 Acute postop pain NEC [G89.18] 03/03/2024 Chronic kidney disease [N18.9] 03/03/2024 Encounter Status:Closed by WORKMAN JADON WHITE on 04/20/24 Normal [facility] Comprehensive metabolic 2000 panelon 04-20-2024 Albumin [Mass/Vol] 4.3 g/dL Normal 3.9-4.9 [facility] Comment on above: Order Comment: Speci men Type: SWAB Ordering Facility: [facility] Address: [address] [place] [address] [place] [address] Performed By: #### S APCR #### [facility] CLIA [id number] [address] [place] [address] [place] ALP [Catalytic activity/Vol] 114 U/L High 38-113 [facility] Comment on above: Order Comment: Speci men Type: SWAB Ordering Facility: [facility] Address: [address] [place] [address] Performed By: #### S APCR #### [facility] CLIA [id number] [address] [place] [address] [place] ALT [Catalytic activity/Vol] 47 U/L Normal 10-54 [facility] Comment on above: Order Comment: Speci men Type: SWAB Ordering Facility: [facility] Address: [address] [place] [address] Performed By: #### S APCR #### [facility] CLIA [id number] [address] [place] [address] [place] Anion gap [Moles/Vol] 14 mmol/L Normal 8-15 [facility] Comment on above: Order Comment: Speci men Type: SWAB Ordering Facility: [facility] Address: [address] [place] [address] Performed By: #### S APCR #### [facility] CLIA [id number] [address] [place] [address] [place] AST [Catalytic activity/Vol] 52 U/L High 14-40 [facility] Comment on above: Order Comment: Speci men Type: SWAB Ordering Facility: [facility] Address: [address] [place] [address] Performed By: #### S APCR #### [facility] CLIA [id number] [address] [place] [address] [place] Bilirubin [Mass/Vol] 0.9 mg/dL Normal 0.2-1.3 [facility] Comment on above: Order Comment: Speci men Type: SWAB Ordering Facility: [facility] Address: [address] [place] [address] Performed By: #### S APCR #### [facility] CLIA [id number] [address] [place] [address] [place] Calcium [Mass/Vol] 9.7 mg/dL Normal 8.5-10.2 [facility] Comment on above: Order Comment: Speci men Type: SWAB Ordering Facility: [facility] Address: [address] [place] [address] Performed By: #### S APCR #### [facility] CLIA [id number] [address] [place] [address] [place] Chloride [Moles/Vol] 102 mmol/L Normal 98-107 [facility] Comment on above: Order Comment: Speci men Type: SWAB Ordering Facility: [facility] Address: [address] [place] [address] Performed By: #### S APCR #### [facility] CLIA [id number] [address] [place] [address] [place] CO2 [Moles/Vol] 23 mmol/L Normal 22-30 [facility] Comment on above: Order Comment: Speci men Type: SWAB Ordering Facility: [facility] Address: [address] [place] [address] Performed By: #### S APCR #### [facility] CLIA [id number] [address] [place] [address] [place] Creatinine [Mass/Vol] 1.08 mg/dL Normal 0.73-1.22 [facility] Comment on above: Order Comment: Speci men Type: SWAB Ordering Facility: [facility] Address: [address] [place] [address] Performed By: #### S APCR #### [facility] CLIA [id number] [address] [place] [address] [place] Creatinine and Glomerular filtration rate.predicted panel (S/P/Bld) 83 mL/min/1.73m??? Normal >=60 [facility] Comment on above: Order Comment: Althea romo Type: SWAB Ordering Facility: [facility] Address: [address] [place] [address] Result Comment: Yvette mated Glomerular Filtration Rate (eGFR) is calculated using the 2020 CKD-EPI creatinine equation. This equation utilizes serum creatinine, sex, and age as parameters. The creatinine assay has traceable calibration to isotope dilution-mass spectrometry. Refer to KDIGO guidelines for clinical interpretation. In patients with unstable renal function, e.g. those with acute kidney injury, the eGFR may not accurately reflect actual GFR. Performed By: #### S APCR #### [facility] CLIA [id number] [address] [place] [address] [place] Glucose [Mass/Vol] 127 mg/dL High 74-99 [facility] Comment on above: Order Comment: Althea romo Type: SWAB Ordering Facility: [facility] Address: [address] [place] [address] Result Comment: The [place] Diabetes [employer] (ADA) provides guidance for cutoff values for fasting glucose and random glucose. The ADA defines fasting as no caloric intake for at least 8 hours. Fasting plasma glucose results between 100 to 125 mg/dL indicate increased risk for diabetes (prediabetes). Fasting plasma glucose results greater than or equal to 126 mg/dL meet the criteria for diagnosis of diabetes. In the absence of unequivocal hyperglycemia, results should be confirmed by repeat testing. In a patient with classic symptoms of hyperglycemia or hyperglycemic crisis, random plasma glucose results greater than or equal to 200 mg/dL meet the criteria for diagnosis of diabetes. Reference: Standards of Medical Care in Diabetes 2016, [place] [employer] Association. Diabetes Care. 2016.39(Suppl 1). Performed By: #### S APCR #### [facility] CLIA [id number] [address] [place] [address] [place] Potassium [Moles/Vol] 3.6 mmol/L Low 3.7-5.1 [facility] Comment on above: Order Comment: Althea romo Type: SWAB Ordering Facility: [facility] Address: [address] [place] [address] Performed By: #### S APCR #### [facility] CLIA [id number] [address] [place] [address] [place] Protein [Mass/Vol] 7.2 g/dL Normal 6.3-8.0 [facility] Comment on above: Order Comment: Speci men Type: SWAB Ordering Facility: [facility] Address: [address] [place] [address] Performed By: #### S APCR #### [facility] CLIA [id number] [address] [place] [address] [place] Sodium [Moles/Vol] 139 mmol/L Normal 136-144 [facility] Comment on above: Order Comment: Speci men Type: SWAB Ordering Facility: [facility] Address: [address] [place] [address] Performed By: #### S APCR #### [facility] CLIA [id number] [address] [place] [address] [place] Urea nitrogen [Mass/Vol] 10 mg/dL Normal 9-24 [facility] Comment on above: Order Comment: Speci men Type: SWAB Ordering Facility: [facility] Address: [address] [place] [address] Performed By: #### S APCR #### [facility] CLIA [id number] [address] [place] [address] [place] ECG COMPLETEon 04-20-2024 ECG COMPLETE Ventricular Rate : 9 5 BPM Atrial Rate : 95 BPM P-R Interval : 168 ms QRS Duration : 80 ms Q-T Interval : 388 ms QTC Calculation(Bazett) : 487 ms Calculated P Noel : 36 degrees Calculated R Noel : 8 degrees Calculated T Noel : 34 degrees NORMAL SINUS RHYTHM PROLONGED QT INTERVAL OR TU FUSION, CONSIDER HYPOKALEMIA ABNORMAL ECG Confirmed by MD DAVID, QARAB ([id number]) on 04/21/2024 11:05:35 AM NAME : JASON MOORE PID : [id number] : 1970 Gender : Male Race : ORD : [id number] Procedure Date : Apr 20 2024 14:19:12 Edit Date : Apr 21 2024 11:05:40 Diagnosis: NORMAL SINUS RHYTHM PROLONGED QT INTERVAL OR TU FUSION, CONSIDER HYPOKALEMIA ABNORMAL ECG Confirmed by MD HERNANDEZ QARAB ([id number]) on 04/21/2024 11:05:35 AM Test Reason : R06.02 SOB (shortness of breath) Location : [address] : [place] Overread By : MD HERNANDEZ QARAB Edited By : MD HERNANDEZ QARAB Referred By : ASHLEY PUGH Acquired by : Sari SANTIAGO [facility] Natriuretic peptide.B prohormone N-Terminal [Mass/Vol] 50 pg/mL Normal <125 [facility] Comment on above: Order Comment: Speci men Type: ARTERIAL BLOOD SPECIMEN Ordering Facility: [facility] Address: [address] [place] [address] Performed By: #### A LLMG #### [facility] CLIA [id number] [address] [place] [address] [place] XR CHEST 2V FRONTAL/LATon XR CHEST 2V FRONTAL/LAT * * *Final Report* * * DATE OF EXAM: Apr 20 2024 2:35PM WOX [id number] - XR CHEST 2V FRONTAL/LAT / PROCEDURE REASON: multiple diagnoses * * * * Physician Interpretation * * * * EXAMINATION: CHEST RADIOGRAPH (2 VIEW FRONTAL and LATERAL) CLINICAL HISTORY: SOB (shortness of breath) Bilateral leg edema MQ: XC2_6 EXAM DATE/TIME: 04/20/2024 2:35 PM COMPARISON: Chest x-ray on 03/03/2024 RESULT: Lines, tubes, and devices: None. Lungs and pleura: No consolidation. No lung mass. No pleural effusion. No pneumothorax. Cardiomediastinal silhouette: Unremarkable cardiomediastinal silhouette. Bones and soft tissues: Status post cervical spinal fusion. IMPRESSION: No acute radiographic abnormality. [employer] Supervisor: LAURENT Transcribe Date/Time: Apr 20 2024 4:37P Dictated by : NORTH LABOY MD This examination was interpreted and the report reviewed and electronically signed by: NORTH LABOY MD on Apr 20 2024 4:38PM EST [id number] Normal [facility] XR Chest PA and Lateralon IMPRESSION: No acute radiographic abnormality. [employer] Supervisor: LAURENT Transcribe Date/Time: Apr 20 2024 4:37P Dictated by : NORTH LABOY MD This examination was interpreted and the report reviewed and electronically signed by: NORTH LABOY MD on Apr 20 2024 4:38PM EST DIVISION OF RADIOLOGY * * *Final Report* * * DATE OF EXAM: Apr 20 2024 2:35PM WOX [id number] - XR CHEST 2V FRONTAL/LAT / PROCEDURE REASON: multiple diagnoses * * * * Physician Interpretation * * * * EXAMINATION: CHEST RADIOGRAPH (2 VIEW FRONTAL & LATERAL) CLINICAL HISTORY: SOB (shortness of breath) Bilateral leg edema MQ: XC2_6 EXAM DATE/TIME: 04/20/2024 2:35 PM COMPARISON: Chest x-ray on 03/03/2024 RESULT: Lines, tubes, and devices: None. Lungs and pleura: No consolidation. No lung mass. No pleural effusion. No pneumothorax. Cardiomediastinal silhouette: Unremarkable cardiomediastinal silhouette. Bones and soft tissues: Status post cervical spinal fusion. DIVISION OF RADIOLOGY Provider, [facility] - 04/20/2024 * * *Final Report* * * DATE OF EXAM: Apr 20 2024 2:35PM WOX [id number] - XR CHEST 2V FRONTAL/LAT / PROCEDURE REASON: multiple diagnoses * * * * Physician Interpretation * * * * EXAMINATION: CHEST RADIOGRAPH (2 VIEW FRONTAL & LATERAL) CLINICAL HISTORY: SOB (shortness of breath) Bilateral leg edema MQ: XC2_6 EXAM DATE/TIME: 04/20/2024 2:35 PM COMPARISON: Chest x-ray on 03/03/2024 RESULT: Lines, tubes, and devices: None. Lungs and pleura: No consolidation. No lung mass. No pleural effusion. No pneumothorax. Cardiomediastinal silhouette: Unremarkable cardiomediastinal silhouette. Bones and soft tissues: Status post cervical spinal fusion. IMPRESSION IMPRESSION: No acute radiographic abnormality. [employer] Supervisor: PSCB Transcribe Date/Time: Apr 20 2024 4:37P Dictated by : NORTH LABOY MD This examination was interpreted and the report reviewed and electronically signed by: NORTH LABOY MD on Apr 20 2024 4:38PM EST [facility] Radiology Study observation (narrative) [facility] XR Chest PA and LateralOrder ed By: [facility] Provider on 04-20-2024 [facility] CNCOon 04-06-2024 CNCO Letter Text Normal [facility] CNPNon 03-21-2024 CNPN Telephone (PODCCP) -- JASON MOORE ([id number]) 1970 M Date Time Provider Department 03/21/24 COLTON ROSARIO PODCCP During your visit today, we recorded the following information about you: Irasema Cao 03/21/2024 2:32 PM Signed Transitional Care Management (TCM) [facility] Provider Action / FYI: N/A SUMMARY: Outreach type: INITIAL OUTREACH Discharge Network Status: In-Network Discharge Source of Patient: [facility] TCM Discharge Report Patient discharged from [facility] on 03/04/24. Admitted for Cervical radicular pain. Contact made with patient: No - next outreach attempt will be on next . Irasema Cao March 21, 2024 2:31 PM Allergies As of Date: 03/21/2024 Noted Allergy Reaction ATIVAN (LORAZEPAM) 06/10/2016 8 - GI Upset HCTZ (THIAZIDES) 02/25/2024 14 - Other: See Comments Comments: hypercalcemia PAXIL (PAROXETINE HCL) 12/25/2015 8 - GI Upset Comments: diarrhea ZOLOFT (SERTRALINE) 06/10/2016 8 - GI Upset Date Reviewed: 03/04/2024 Reviewed by: Es Cameron, ERASTO - Fully Assessed Reason for Visit: Transition Of Care [4074] Prescriptions as of 03/21/2024 - methocarbamol (ROBAXIN) 750 mg tablet 1 tablet by ORAL/FEEDING TUBE route every 8 hours as needed (muscle spasms). - gabapentin (NEURONTIN) 300 mg capsule Take 1 capsule by mouth three times a day for 30 days. - gabapentin (NEURONTIN) 300 mg capsule Take 1 capsule by mouth three times a day for 30 days. - rosuvastatin (CRESTOR) 10 mg tablet Take 1 tablet by mouth daily at bedtime. - spironolactone (ALDACTONE) 25 mg tablet Take 1 tablet by mouth once daily. - sildenafil (VIAGRA) 100 mg tablet Take 1 tablet by mouth once daily as needed. Take 30-60 minutes before sexual activity. - amLODIPine (NORVASC) 10 mg tablet Take 1 tablet by mouth once daily. - lisinopril (ZESTRIL) 40 mg tablet Take 1 tablet by mouth once daily. Problem List As Of Date 03/21/2024 Noted Resolved Left-sided low back pain without sciatica [M54.*07/03/2011 Hypertension, essential [I10] 06/28/2014 Palpitations [R00.2] 06/28/2014 01/22/2023 Mixed hyperlipidemia [E78.2] 06/28/2014 Well adult exam [Z00.00] 06/28/2014 Neurofibroma [D36.10] 08/13/2014 Family history of colon cancer [Z80.0] 09/28/2014 Agoraphobia [F40.00] 01/24/2015 Situational anxiety [F41.8] 01/24/2015 Fatty liver [K76.0] 03/28/2016 02/21/2024 Metabolic dysfunction-associated steatohepatiti*03/28/2016 Chronic bilateral low back pain without sciatic*06/10/2016 Prostate cancer screening [Z12.5] 07/10/2016 Smoker [F17.200] 07/10/2016 Alcohol use [Z78.9] 07/10/2016 01/22/2023 Cervical radiculopathy [M54.12] 12/16/2020 Acute pain of right shoulder [M25.511] 12/18/2020 03/28/2021 Spinal stenosis of cervical region [M48.02] 03/26/2021 Tachycardia, unspecified [R00.0] 01/22/2023 JOSELITO (obstructive sleep apnea) [G47.33] H/O cervical spine surgery [Z98.890] 06/17/2021 LVH (left ventricular hypertrophy) [I51.7] 11/05/2022 ED (erectile dysfunction) of organic origin [N5*11/05/2022 DDD (degenerative disc disease), lumbar [M51.36]05/17/2023 Hand numbness [R20.0] 05/17/2023 Former smoker [Z87.891] 02/16/2024 Morbid obesity (HCC) [E66.01] 02/16/2024 Abnormal echocardiogram [R93.1] 02/16/2024 Screening for prostate cancer [Z12.5] 02/21/2024 Elevated hemoglobin A1c [R73.09] 02/21/2024 Hypercalcemia [E83.52] 02/23/2024 Obesity, Class III, BMI >= 40 [E66.01] 03/02/2024 Cervical radicular pain [M54.12] 03/03/2024 Cardiogenic shock (HCC) [R57.0] 03/03/2024 03/04/2024 Acute postoperative pulmonary insufficiency (HC*03/03/2024 03/04/2024 Stress hyperglycemia [R73.9] 03/03/2024 Acute blood loss anemia [D62] 03/03/2024 Acute postop pain NEC [G89.18] 03/03/2024 Chronic kidney disease [N18.9] 03/03/2024 Encounter Status:Closed by IRASEMA CAO on 03/21/24 Normal [facility] Rohan 03-09-2024 CNPN Telephone (PODCCP) -- JASON MOORE ([id number]) 1970 M Date Time Provider Department 03/09/24 COLTON ROSARIO PODCCP During your visit today, we recorded the following information about you: DoyleAnn 03/09/2024 12:54 PM Signed Transitional Care Management (TCM) [facility] Provider Action / FYI: N/a SUMMARY: Outreach type: INITIAL OUTREACH Discharge Network Status: In-Network Discharge Source of Patient: [facility] TCM Discharge Report Patient discharged from [facility] on 03/04/2024. Admitted for Cervical radicular pain. Contact made with patient: No - next outreach attempt will be on next . Ann Berrios March 09, 2024 12:53 PM Allergies As of Date: 03/09/2024 Noted Allergy Reaction ATIVAN (LORAZEPAM) 06/10/2016 8 - GI Upset HCTZ (THIAZIDES) 02/25/2024 14 - Other: See Comments Comments: hypercalcemia PAXIL (PAROXETINE HCL) 12/25/2015 8 - GI Upset Comments: diarrhea ZOLOFT (SERTRALINE) 06/10/2016 8 - GI Upset Date Reviewed: 03/04/2024 Reviewed by: Es Cameron, RN - Fully Assessed Reason for Visit: Transition Of Care [4074] Prescriptions as of 03/09/2024 - methocarbamol (ROBAXIN) 750 mg tablet 1 tablet by ORAL/FEEDING TUBE route every 8 hours as needed (muscle spasms). - oxyCODONE IR (ROXICODONE) 5 mg immediate release tablet Take 1 tablet by mouth every 4 hours as needed (severe pain) for up to 30 doses. - gabapentin (NEURONTIN) 300 mg capsule Take 1 capsule by mouth three times a day for 30 days. - gabapentin (NEURONTIN) 300 mg capsule Take 1 capsule by mouth three times a day for 30 days. - rosuvastatin (CRESTOR) 10 mg tablet Take 1 tablet by mouth daily at bedtime. - spironolactone (ALDACTONE) 25 mg tablet Take 1 tablet by mouth once daily. - sildenafil (VIAGRA) 100 mg tablet Take 1 tablet by mouth once daily as needed. Take 30-60 minutes before sexual activity. - amLODIPine (NORVASC) 10 mg tablet Take 1 tablet by mouth once daily. - lisinopril (ZESTRIL) 40 mg tablet Take 1 tablet by mouth once daily. Problem List As Of Date 03/09/2024 Noted Resolved Left-sided low back pain without sciatica [M54.*07/03/2011 Hypertension, essential [I10] 06/28/2014 Palpitations [R00.2] 06/28/2014 01/22/2023 Mixed hyperlipidemia [E78.2] 06/28/2014 Well adult exam [Z00.00] 06/28/2014 Neurofibroma [D36.10] 08/13/2014 Family history of colon cancer [Z80.0] 09/28/2014 Agoraphobia [F40.00] 01/24/2015 Situational anxiety [F41.8] 01/24/2015 Fatty liver [K76.0] 03/28/2016 02/21/2024 Metabolic dysfunction-associated steatohepatiti*03/28/2016 Chronic bilateral low back pain without sciatic*06/10/2016 Prostate cancer screening [Z12.5] 07/10/2016 Smoker [F17.200] 07/10/2016 Alcohol use [Z78.9] 07/10/2016 01/22/2023 Cervical radiculopathy [M54.12] 12/16/2020 Acute pain of right shoulder [M25.511] 12/18/2020 03/28/2021 Spinal stenosis of cervical region [M48.02] 03/26/2021 Tachycardia, unspecified [R00.0] 01/22/2023 JOSELITO (obstructive sleep apnea) [G47.33] H/O cervical spine surgery [Z98.890] 06/17/2021 LVH (left ventricular hypertrophy) [I51.7] 11/05/2022 ED (erectile dysfunction) of organic origin [N5*11/05/2022 DDD (degenerative disc disease), lumbar [M51.36]05/17/2023 Hand numbness [R20.0] 05/17/2023 Former smoker [Z87.891] 02/16/2024 Morbid obesity (HCC) [E66.01] 02/16/2024 Abnormal echocardiogram [R93.1] 02/16/2024 Screening for prostate cancer [Z12.5] 02/21/2024 Elevated hemoglobin A1c [R73.09] 02/21/2024 Hypercalcemia [E83.52] 02/23/2024 Obesity, Class III, BMI >= 40 [E66.01] 03/02/2024 Cervical radicular pain [M54.12] 03/03/2024 Cardiogenic shock (HCC) [R57.0] 03/03/2024 03/04/2024 Acute postoperative pulmonary insufficiency (HC*03/03/2024 03/04/2024 Stress hyperglycemia [R73.9] 03/03/2024 Acute blood loss anemia [D62] 03/03/2024 Acute postop pain NEC [G89.18] 03/03/2024 Chronic kidney disease [N18.9] 03/03/2024 Encounter Status:Closed by ANN BERRIOS on 03/09/24 Normal [facility] CNCOon 03-06-2024 CNCO Letter Text Normal [facility] CBC panel Auto (Bld)on 03-04 Erythrocyte distribution width (RBC) [Ratio] 11.9 % Normal 11.5-15.0 [facility] Comment on above: Order Comment: Speci men Type: BLOOD SPECIMEN Ordering Facility: [facility] Address: [address] [place] [address] Performed By: #### 5 8410-2 #### [facility] CLIA [id number] [address] [place] [address] [place] Hematocrit (Bld) [Volume fraction] 40.2 % Normal 39.0-51.0 [facility] Comment on above: Order Comment: Speci men Type: BLOOD SPECIMEN Ordering Facility: [facility] Address: [address] [place] [address] Performed By: #### 5 8410-2 #### [facility] CLIA [id number] [address] [place] [address] [place] Hemoglobin (Bld) [Mass/Vol] 13.7 g/dL Normal 13.0-17.0 [facility] Comment on above: Order Comment: Speci men Type: BLOOD SPECIMEN Ordering Facility: [facility] Address: [address] [place] [address] Performed By: #### 5 8410-2 #### [facility] CLIA [id number] [address] [place] [address] [place] MCH (RBC) [Entitic mass] 33.3 pg Normal 26.0-34.0 [facility] Comment on above: Order Comment: Speci men Type: BLOOD SPECIMEN Ordering Facility: [facility] Address: [address] [place] [address] Performed By: #### 5 8410-2 #### [facility] CLIA [id number] [address] [place] [address] [place] MCHC (RBC) [Mass/Vol] 34.1 g/dL Normal 30.5-36.0 [facility] [facility] Comment on above: Order Comment: Speci men Type: BLOOD SPECIMEN Ordering Facility: [facility] Address: [address] [place] [address] Performed By: #### 5 8410-2 #### [facility] CLIA [id number] [address] [place] [address] [place] MCV (RBC) [Entitic vol] 97.6 fL Normal 80.0-100.0 [facility] Comment on above: Order Comment: Speci men Type: BLOOD SPECIMEN Ordering Facility: [facility] Address: [address] [place] [address] Performed By: #### 5 8410-2 #### [facility] CLIA [id number] [address] [place] [address] [place] Nucleated RBC (Bld) [#/Vol] 10*3/uL Normal <0.01 [facility] Comment on above: Order Comment: Speci men Type: BLOOD SPECIMEN Ordering Facility: [facility] Address: [address] [place] [address] Performed By: #### 5 8410-2 #### [facility] CLIA [id number] [address] [place] [address] [place] Platelet mean volume (Bld) [Entitic vol] 10.1 fL Normal 9.0-12.7 [facility] Comment on above: Order Comment: Speci men Type: BLOOD SPECIMEN Ordering Facility: [facility] Address: [address] [place] [address] Performed By: #### 5 8410-2 #### [facility] CLIA [id number] [address] [place] [address] [place] Platelets (Bld) [#/Vol] 227 10*3/uL Normal 150-400 [facility] Comment on above: Order Comment: Speci men Type: BLOOD SPECIMEN Ordering Facility: [facility] Address: [address] [place] [address] Performed By: #### 5 8410-2 #### [facility] CLIA [id number] [address] [place] [address] [place] RBC (Bld) [#/Vol] 4.12 10*6/uL Low 4.20-6.00 [facility] Comment on above: Order Comment: Speci men Type: BLOOD SPECIMEN Ordering Facility: [facility] Address: [address] [place] [address] Performed By: #### 5 8410-2 #### [facility] CLIA [id number] [address] [place] [address] [place] WBC (Bld) [#/Vol] 10.98 10*3/uL Normal 3.70-11.00 [facility] Comment on above: Order Comment: Speci men Type: BLOOD SPECIMEN Ordering Facility: [facility] Address: [address] [place] [address] Performed By: #### 5 8410-2 #### [facility] CLIA [id number] [address] [place] [address] [place] CNDSon 03-04-2024 CNDS HNO ID: [id number] Author: PELON GREENFIELD MD Service: Neurosurgery Author Type: Resident Type: Discharge Summary Filed: 03/14/2024 08:56 Note Text: -- Attestation signed by Pelon Greenfield MD at 03/14/2024 8:56 AM STAFF NOTE: I agree with the above assessment and plan. Pelon Greenfield MD -- [facility] [place] [phone] or [phone]) [facility] C O N F I D E N T I A L I N F O R M A T I O N -- --------- [facility]ICAL [facility] DISCHARGE SUMMARY PATIENT NAME: Jason Moore ADMISSION DATE: 03/03/2024 DISCHARGE DATE: 03/04/2024 Location: G053 003/G053-03 Discharged Against Medical Advice? No Attending Physician: ePlon Greenfield M.D.- PCP: Colton Rosario MD [phone] Reason for Hospitalization: elective surgery Transitions of Care Critical Issues: NEW BASELINE FOR PATIENT: none IMAGING FOLLOW-UP: none LAB MONITORING NEEDED: none SPECIALIST FOLLOW-UP: none RODRIGUEZ MEDICATION CHANGES: post op pain control PROCEDURES SCHEDULED: none Final Diagnoses: Principal Problem: Cervical radicular pain (POA: Yes) Active Problems: Cervical radiculopathy (POA: Yes) Obesity, Class III, BMI >= 40 (POA: Unknown) Stress hyperglycemia (POA: Unknown) Acute blood loss anemia (POA: Unknown) Acute postop pain NEC (POA: Unknown) Chronic kidney disease (POA: Unknown) Resolved Problems: Cardiogenic shock (HCC) (POA: Unknown) Acute postoperative pulmonary insufficiency (HCC) (POA: Unknown) Operations During Hospitalization: 03/03/2024: Procedure: ARTHRODESIS CERVICAL POSTERIOR, BELOW C2 1ST SINGLE LEVEL CPT(R) Code: 70399 - ARTHRD PST/PSTLAT TQ 1NTRSPC CRV BELW C2 SEGMENT Procedure: ARTHRODESIS CERVICAL BELOW C2, 2ND CERVICAL LEVEL CPT(R) Code: 51742 - ARTHRODESIS PST/PSTLAT TQ 1NTRSPC EA ADDL NTRSPC Procedure: POSTERIOR SEGMENTAL INSTRUMENTATION FOLLOWING CERVICAL FUSION 3-6 LEVELS CPT(R) Code: 52610 - POSTERIOR SEGMENTAL INSTRUMENTATION 3-6 VRT SEG Operative Duration: 3 Hr 51 Min 41 Sec Implants Used for Surgery: * No implants in log * Surgical Specimens: * No specimens in log * Incision/Procedure Start Time: 8:56 AM Incision Close/Procedure End Time: 10:16 AM Surgeon(s) and Role: * Pelon Greenfield MD - Primary * Dory Gaffney MD - Resident - Assisting Admissions Director: Es Coyle RN Admissions Director (Relief): Carola Guzman RN Scrub Person: Phylicia Gandhi ST Scrub Person (Relief): Vianney Everett RN Procedures During Hospitalization: none Hospital Course: The patient was [facility] to [facility] 03[facility] for elective surgery of R sided C5-7 foraminotomy. Post operatively, he experienced hypotension requiring brief pressors. Patient was transferred to SICU for closer observation. He was quickly taken off pressors and maintained normal BP. He was also quickly extubated and tolerated room air. His pain was well controlled on PO agents. The patient was discharged on POD # 1 Day Post-Op in stable condition. Complete and comprehensive discharge instructions were provided to the patient as well as necessary prescriptions. The patient had no further questions and was advised to call with any questions, concerns, or problems. Consulting Teams During Hospitalization: None Patient's pain was well controlled with Oral Pain Medications. PT/OT deferred by patient Relevant labs included: CBC: Recent Labs 03/04/24 0037 03/03/24 1158 WBC 10.98 12.49* HB 13.7 13.3 HCT 40.2 39.8 PLT 227 234 MCV 97.6 101.3* RDWCV 11.9 11.9 COAG: Recent Labs 03/04/24 00303/03/24 1158 APTT 25.5 -- INR -- 1.1 BMP: Recent Labs 03/04/24 00303/03/24 1158 GLUC 120* 188* NA 136 138 K 4.8 4.2 CHLOR 102 100 CO2 20* 16* ANION 14 22* BUN 16 23 CREAT 1.25* 1.89* CHEM: Recent Labs 03/04/24 0037 03/03/24 1158 ALB 4.4 4.5 TPROT 7.1 6.8 CA 10.4* 9.0 MG 2.2 1.7 P 2.5* 5.1* HEPATIC: Recent Labs 03/04/24 0037 03/03/24 1158 ALKPHOS 78 79 ALT 39 43 AST 45* 44* TBILI 0.6 0.3 URINALYSIS: Recent Labs 03/03/24 1412 03/03/24 1240 03/03/24 1143 03/03/24 1003 03/03/24 0920 PH 7.34* 7.23* 7.13* 7.25* 7.27* CARDIAC: Recent Labs 03/03/24 1047 PBNP <36 HbA1C: Hemoglobin A1C (%) Date Value 02/16/2024 6.4 03/12/2020 5.4 Blood Glucose Checks: Recent Labs 03/04/24 1137 03/04/24 0541 03/03/24 2342 03/03/24 1747 03/03/24 1248 PCGLUCOSE 123* 125* 129* 125* 148* Vitamin D: No results found for: VITD25 ESR: No results found for: WSR CRP: No results found for: CRP Estimated Creatinine (more content not included)... Normal [facility] Comprehensive metabolic 2000 panelon 03-04-2024 Albumin [Mass/Vol] 4.4 g/dL Normal 3.9-4.9 [facility] Comment on above: Order Comment: Speci men Type: BLOOD SPECIMENOrdering Facility: [facility] Address: [address] [place] [address] Performed By: #### 2 4323-8, , 2776-08 ####[facility] [id number] [place] [address] [place] ALP [Catalytic activity/Vol] 78 U/L Normal 38-113 [facility] Comment on above: Order Comment: Speci men Type: BLOOD SPECIMENOrdering Facility: [facility] Address: [address] [place] [address] Performed By: #### 2 4323-8, , 2776-08 ####[facility] [id number] [place] [address] [place] ALT [Catalytic activity/Vol] 39 U/L Normal 10-54 [facility] Comment on above: Order Comment: Speci men Type: BLOOD SPECIMENOrdering Facility: [facility] Address: [address] [place] [address] Performed By: #### 2 4323-8, , 2776-08 ####[facility] [id number] [address] [address] [place] Anion gap [Moles/Vol] 14 mmol/L Normal 8-15 [facility] Comment on above: Order Comment: Speci men Type: BLOOD SPECIMENOrdering Facility: [facility] Address: [address] [place] [address] Performed By: #### 2 4323-8, 99919-3, 2776- ####[facility] [id number] [place] [address] [place] AST [Catalytic activity/Vol] 45 U/L High 14-40 [facility] Comment on above: Order Comment: Speci men Type: BLOOD SPECIMENOrdering Facility: [facility] Address: [address] [place] [address] Performed By: #### 2 4323-8, , 2776-08 ####[facility] [id number] [place] [address] [place] Bilirubin [Mass/Vol] 0.6 mg/dL Normal 0.2-1.3 [facility] Comment on above: Order Comment: Speci men Type: BLOOD SPECIMENOrdering Facility: [facility] Address: [address] [place] [address] Performed By: #### 2 4323-8, , 2776-08 ####[facility] [id number] [place] [address] [place] Calcium [Mass/Vol] 10.4 mg/dL High 8.5-10.2 [facility] Comment on above: Order Comment: Speci men Type: BLOOD SPECIMENOrdering Facility: [facility] Address: [address] [place] [address] Performed By: #### 2 4323-8, , 2776-08 ####[facility] [id number] [place] [address] [place] Chloride [Moles/Vol] 102 mmol/L Normal 98-107 [facility] Comment on above: Order Comment: Speci men Type: BLOOD SPECIMENOrdering Facility: [facility] Address: [address] [place] [address] Performed By: #### 2 4323-8, , 2776-08 ####[facility] [id number] [place] [address] [place] CO2 [Moles/Vol] 20 mmol/L Low 22-30 [facility] Comment on above: Order Comment: Speci men Type: BLOOD SPECIMENOrdering Facility: [facility] Address: [address] [place] [address] Performed By: #### 2 4323-8, 07057-1, 2776-08 ####[facility] [id number] [place] [address] [place] Creatinine [Mass/Vol] 1.25 mg/dL High 0.73-1.22 [facility] Comment on above: Order Comment: Speci men Type: BLOOD SPECIMENOrdering Facility: [facility] Address: [address] [place] [address] Performed By: #### 2 4323-8, , 2776-08 ####[facility] [id number] [place] [address] [place] Creatinine and Glomerular filtration rate.predicted panel (S/P/Bld) 70 mL/min/1.73m??? Normal >=60 [facility] Comment on above: Order Comment: Speci men Type: BLOOD SPECIMENOrdering Facility: [facility] Address: [address] [place] [address] Result Comment: Yvette mated Glomerular Filtration Rate (eGFR) is calculated using the 2020 CKD-EPI creatinine equation. This equation utilizes serum creatinine, sex, and age as parameters. The creatinine assay has traceable calibration to isotope dilution-mass spectrometry. Refer to KDIGO guidelines for clinical interpretation. In patients with unstable renal function, e.g. those with acute kidney injury, the eGFR may not accurately reflect actual GFR. Performed By: #### 2 4323-8, , 2776-08 ####[facility] [id number] [place] [address] [place] Glucose [Mass/Vol] 120 mg/dL High 74-99 [facility] Comment on above: Order Comment: Speci men Type: BLOOD SPECIMENOrdering Facility: [facility] Address: [address] [place], [place] [address] Result Comment: The [place] Diabetes Association (ADA) provides guidance for cutoff values for fasting glucose and random glucose. The ADA defines fasting as no caloric intake for at least 8 hours. Fasting plasma glucose results between 100 to 125 mg/dL indicate increased risk for diabetes (prediabetes). Fasting plasma glucose results greater than or equal to 126 mg/dL meet the criteria for diagnosis of diabetes. In the absence of unequivocal hyperglycemia, results should be confirmed by repeat testing. In a patient with classic symptoms of hyperglycemia or hyperglycemic crisis, random plasma glucose results greater than or equal to 200 mg/dL meet the criteria for diagnosis of diabetes. Reference: Standards of Medical Care in Diabetes 2016, [place] [employer] Association. Diabetes Care. 2016.39(Suppl 1). Performed By: #### 2 4323-8, , 2776-08 ####[facility] [id number] [place] [address] [place] Potassium [Moles/Vol] 4.8 mmol/L Normal 3.7-5.1 [facility] Comment on above: Order Comment: Speci men Type: BLOOD SPECIMENOrdering Facility: [facility] Address: [address] [place], [place] [address] Performed By: #### 2 4323-8, , 2776-08 ####[facility] [id number] [place] [address] [place] Protein [Mass/Vol] 7.1 g/dL Normal 6.3-8.0 [facility] Comment on above: Order Comment: Speci men Type: BLOOD SPECIMENOrdering Facility: [facility] Address: [address] [place], [place] [address] Performed By: #### 2 4323-8, , 2776-08 ####[facility] [id number] [place] [id number] [place] Sodium [Moles/Vol] 136 mmol/L Normal 136-144 [facility] Comment on above: Order Comment: Speci men Type: BLOOD SPECIMENOrdering Facility: [facility] Address: [address] [place] [id number] Performed By: #### 2 4323-8, 31265-4, 2777-1 ####[facility] [id number] [address] [address] [place] Urea nitrogen [Mass/Vol] 16 mg/dL Normal 9-24 [facility] Comment on above: Order Comment: Speci men Type: BLOOD SPECIMENOrdering Facility: [facility] Address: [address] [place] [id number] Performed By: #### 2 4323-8, 37263-7, 2777-1 ####[facility] [id number] [address] [address] [place] ECHOon 03-04-2024 Echocardiography Echocardiography Rep ort: Transthoracic Echo [facility] Bedside Date of service: 03/04/2024 11:09:27 AM UNLOADER Ordering physician: ADRIANNA SUTTON Indication: Evaluation of known cardiomyopathy with a change in clinical status Technologist: Abiodun Timmons [facility] Interpreting physician: Svetlana Manuel MD PATIENT: Name: MR. JASON MOORE : 1970 Age: 53 years Gender: M History of hypertension and dyslipidemia. Primary rhythm: sinus. Height: 176.50 cm BSA: 2.50 m Weight: 127.01 kg BMI: 40.8 kg/m Heart rate 84 bpm Blood pressure 160/76 mmHg Color Doppler was utilized to interrogate the cardiac valves assessed and spectral Doppler was utilized to determine the flow velocities and pressure gradients reported in this exam. MEASUREMENTS: Value Indexed Normal Max aortic dimension 3.6 cm Ao < 3.8 Left atrial volume 77 ml (4ch A-L) 31 ml/m Namita <= 34 LV ID (diastole) 5.2 cm (2D) 2.08 cm/m LV ID (systole) 3.9 cm (2D) 1.55 cm/m IVS, leaflet tips 1.2 cm (2D) Posterior wall thickness 1.2 cm (2D) Left ventricular mass 257 g (2D) 103 g/m Ejection Fraction 55 % (visual est.) EF > 52 FINDINGS: LEFT VENTRICLE The left ventricle is normal in size. There is mild concentric left ventricular hypertrophy. Left ventricular systolic function is normal. Grade I left ventricular diastolic dysfunction. Mitral annular lateral E/e': 8.5. Mitral annular septal E/e': 9.5. Wall Motion: All scored segments are normal. RIGHT VENTRICLE The right ventricle is normal in size. Right ventricular systolic function is normal. RV systolic tissue Doppler velocity is 18.0 cm/s. Estimated right ventricular systolic pressure is not reported due to an insufficient tricuspid regurgitation signal. Estimated right atrial pressure is 8 mmHg based on IVC assessment. LEFT ATRIUM The left atrial cavity is normal in size. RIGHT ATRIUM The right atrial cavity is normal in size. Inferior Vena Cava: The inferior vena cava appears dilated measuring 2.5 cm. The vessel decreases greater than 50 percent with inspiration. MITRAL VALVE The mitral valve leaflets are structurally normal. There is trace mitral valve regurgitation. The pressure half time is 64 msec. The peak mitral E/A ratio is 0.99. The average mitral E/e' ratio is 9.0. The mitral flow deceleration time is 221 msec. TRICUSPID VALVE The tricuspid valve leaflets are structurally normal. There is trace tricuspid valve regurgitation. The hepatic venous pattern showed normal systolic flow. AORTIC VALVE The aortic valve cusps are structurally normal. There is trace aortic valve regurgitation. Tricuspid aortic valve. PULMONIC VALVE The pulmonic valve cusps are structurally normal. There is trace pulmonic valve regurgitation. AORTA The visualized aorta is normal in size. Measurements - Sinus: 3.6 cm. Mid ascending aorta 3.1 cm. PULMONARY ARTERIES The pulmonary arteries are unseen or not interrogated. PERICARDIUM There is no pericardial effusion. There is an epicardial fat pad. CONCLUSIONS: - Exam indication: Evaluation of known cardiomyopathy with a change in clinical status - The left ventricle is normal in size. There is mild concentric left ventricular hypertrophy. Left ventricular systolic function is normal. EF = 55 5% (visual est.) Grade I left ventricular diastolic dysfunction. - The right ventricle is normal in size. Right ventricular systolic function is normal. - There are no significant valvular abnormalities. - The patient has not had a prior CC echocardiographic exam for comparison. * * * Final * * * [facility] [employer] ([employer]) Medical Image : [id number] Normal [facility] Magnesium SerPl-mCncon 03-04 Magnesium [Mass/Vol] 2.2 mg/dL Normal 1.7-2.3 [facility] Comment on above: Order Comment: Speci men Type: BLOOD SPECIMENOrdering Facility: [facility] Address: [address] [place] [address] Performed By: #### 2 4323-8, 55855-5, 2777-1 ####[facility] [id number] [address] [place] NURSING PROGon 03-04-2024 NURSING PROG HNO ID: [id number] Author: ALEXA SHERMAN RN Service: ? Author Type: Registered Nurse Type: Nursing Progress Note Filed: 03/04/2024 13:48 Note Text: 1345 Patient left unit via bed to transfer to 0 bed 41, accompanied by CT Mulugeta and transporter. Family present at bedside. All belongings returned. Normal [facility] Phosphate SerPl-ncon 03-04 Phosphate [Mass/Vol] 2.5 mg/dL Low 2.7-4.8 [facility] Comment on above: Order Comment: Speci men Type: SWAB Ordering Facility: [facility] Address: [address] [place] [address] Result Comment: Resu lt rechecked. Performed By: #### S APCR #### [facility] CLIA [id number] [address] [place], [place] [address] [address] [place] THERAPY NTon 03-04-2024 THERAPY NT HNO ID: [id number] Author: CHRISTINE FOY, OT/L Service: Occupational Therapy Author Type: Occupational Therapist Type: Therapy (PT/OT/Speech/Resp) Filed: 03/04/2024 10:02 Note Text: Occupational Therapy Evaluation Summary SERVICE DATE: 03/04/2024 SERVICE TIME: 929 to 952 ROOM: [place] [address] OT 6 Clicks Score: 21 DISCHARGE RECOMMENDATIONS Home Recommended Discharge Disposition Comments: Assistance all IADLs; SPV during bathing Anticipated Discharge Needs: Physical Assist at Home Physical Assist at Home for: Laundry, Meals, Medication Management, Transportation, Wheelchair Mobility, Cleaning ASSESSMENT Response to Therapy Interventions: Good Participation in Activities AANDOx3 and CAM- on exam. Reports improvement in RUE numbness. Reviewed FM exercises, and UE AROM exercises. Therasponge provided. PRECAUTIONS Spine CURRENT HOSPITAL COURSE 53 y/o M presents with neck pain and RUE pain/paraesthesias; S/p R C5/6, C6/7 foraminotomy on (03/03) Relevant Past Medical History: HTN, HLD, LVH, EtOH use, former smoker (quit 01/14/2024), morbid obesity, JOSELITO, prior C5-7 ACDF HOME LIVING Patient Lives With: Family Assistance Available: 24-Hour Entry To Home: Stairs, Without Rail Number Of Stairs Into Home: 2 Number Of Stairs To Bed/Bath: 0 Equipment Owned: Grab Bars- Shower PRIOR FUNCTIONAL LEVEL Within Functional Limits Reports indepedence all ADLs/IADLs; No AD. SUBJECTIVE Agreeable to OT COGNITION Communication Deficits: Other: See Comment (Intact) Orientation Deficits: Other: See Comment (AANDOx3) Responsiveness: Alert, Awake Follows Commands: 3-step Commands Cog 6 Start of Session Total Points (Max Score = 24): 24 (03/04/24) Cog 6 End of Session Total Points (Max Score = 24): 24 (03/04/24) Confusion Assessment Method (CAM - ICU Score): Negative (03/04/24) THERAPY DIAGNOSIS Muscle Weakness (generalized) TREATMENT INTERVENTIONS Evaluation, Therapeutic Exercise (54864) Timed Code Treatment (minutes): 8 Skilled Treatment Time (minutes): 23 TRAINING AND EDUCATION PROVIDED Exercise Program, Disease Specific Education, Fine Motor Coordination, Health Management of Chronic Conditions, Positioning, Role of Occupational Therapy, Treatment Protocol THERAPEUTIC SKILLS USED Assessment of Tolerance Including Vitals Response to Activity, Activity Dosing, Cuing Tactile, Cuing Verbal, Cues for Sequencing/Proper Technique for Activity, Facilitation of Joint Range of Motion, Management of Critical Lines, Tubes and/or Drains, Physical Assist, Therapeutic Use of Self FUNCTIONAL STATUS Activities of Daily Living Assist Level Additional Information Feeding Modified Independent Grooming Set Up Bathing Upper Body Stand By Assistance Bathing Lower Body Minimal Assistance Dressing Upper Body Stand By Assistance Dressing Lower Body Minimal Assistance Toileting Minimal Assistance Mobility Assist Level Additional Information Bed Mobility Sit to Stand Stand to Sit Bed to Chair Toilet/Commode Shower Functional Mobility GOALS Patient will demonstrate progress with self-care, cognitive and/or coping needs identified to allow safe discharge to home with available support and/or physical assistance. Progress Toward Goals: Progressing as expected Rehab Potential: Good PLAN OT Frequency: Discontinue Therapy Services Reasons Therapy Services Discontinued: Goals met Treatment Interventions: Education, Self Care/Home Management, Energy Conservation Training, Strengthening, Functional Mobility Training, Balance Training, Neuromuscular Re-education, Pain Management, Coping Strategy Education, Dressing Change/Management, Cognitive Training SIGNATURE: Christine Foy OT/L PATIENT NAME: Jason Moore DATE: March 04, 2024 TIME: 10:01 AM Normal [facility] THERAPY NT HNO ID: [id number] Author: ACACIA RIBEIRO, PT Service: Physical Therapy Author Type: Physical Therapist Type: Therapy (PT/OT/Speech/Resp) Filed: 03/04/2024 08:45 Note Text: Physical Therapy Evaluation Summary SERVICE DATE: 03/04/2024 SERVICE TIME: 802 to 834 ROOM: [place] [address] PT 6 Clicks Score: 24 DISCHARGE RECOMMENDATIONS Home ASSESSMENT Response to Therapy Interventions: Good Participation in Activities Progressed from CGA to SBA with mobility training. Therapist provided all post op mobility education. VSS with activity. The patient is safe to mobilize with nursing. No further skilled PT needs. DC PT. PRECAUTIONS Spine CURRENT HOSPITAL COURSE Presents with neck pain and RUE pain/paraesthesias. S/p R C5/6, C6/7 foraminotomy on 03/03/24. Relevant Past Medical History: HTN, HLD, LVH, EtOH use, former smoker (quit 01/14/2024), morbid obesity, JOSELITO, prior C5-7 ACDF HOME LIVING Patient Lives With: Family Assistance Available: 24-Hour Entry To Home: Stairs, Without Rail Number Of Stairs Into Home: 2 Number Of Stairs To Bed/Bath: 0 Equipment Owned: Grab Bars- Shower PRIOR FUNCTIONAL LEVEL Within Functional Limits Did not drive long distances SUBJECTIVE Agreeable to PT THERAPY DIAGNOSIS Reduced mobility-other TREATMENT INTERVENTIONS Evaluation, Therapeutic Activity (89736), Gait Training (02116) Timed Code Treatment (minutes): 17 Skilled Treatment Time (minutes): 32 TRAINING AND EDUCATION PROVIDED Bed Mobility, Curb Step Navigation, Discharge Planning, Disease Specific Education, Exercise Program, Gait Pattern, Reduction of Deviations, Handout Issued, Patient Exercise/Therapy Program Support Needs, Positioning, Precautions/Restrictions, Role of Physical Therapy, Stair Navigation, Transfers, Treatment Protocol THERAPEUTIC SKILLS USED Assessment of Tolerance Including Vitals Response to Activity, Cues for Sequencing/Proper Technique for Activity, Cuing Verbal, Cuing Tactile, Management of Critical Lines, Tubes and/or Drains, Physical Assist FUNCTIONAL STATUS Bed Mobility Rolling: Verbal Cues Only Supine To Sit: Verbal Cues Only Sit to Supine: Verbal Cues Only Scooting: Stand By Assistance Transfers Sit To Stand: Stand By Assistance, Additional Information Progressed from CGA to SBA Stand To Sit: Stand By Assistance Bed to Chair Stand By Assistance, Additional Information Bed To Chair Transfer Type: Stepping Bed To Chair Transfer Equipment: Gait Belt Progressed from CGA to SBA Gait Stand By Assistance Gait Device: None Gait Distance (feet): 400ft Stairs Curb Step: Stand By Assistance, Additional Information Device: Rail Performed 3x to simulate steps GOALS Patient will demonstrate progress with functional mobility to allow safe discharge to home with available support and/or physical assistance. Rehab Potential: Good Progress Toward Goals: Progressing as expected PLAN PT Frequency: Discontinue Therapy Services Reasons Therapy Services Discontinued: Goals met SIGNATURE: Acacia Ribeiro, PT PATIENT NAME: Jason Moore DATE: March 04, 2024 TIME: 8:45 AM Normal [facility] aPTT PPPon 03-04-2024 aPTT Coag (PPP) [Time] 25.5 s Normal 23.0-32.4 [facility] Comment on above: Order Comment: Speci men Type: SWAB Ordering Facility: [facility] Address: [address] [place] [address] Performed By: #### S APCR #### [facility] CLIA [id number] [address] [place] [address] [place] [address] [place] ANES POSTPROC EVALon 024 ANES POSTPROC EVAL HNO ID: [id number] Author: TITA SIMMS MD Service: ? Author Type: Anesthesiologist Type: Anesthesia Postprocedure Evaluation Filed: 03/03/2024 12:23 Note Text: POST ANESTHESIA EVALUATION NOTE : 1970 Procedure Summary Date: 03/03/24 Room / Location: [address] [facility] Anesthesia Start: 732 Anesthesia Stop: 1126 Procedures: ARTHRODESIS CERVICAL POSTERIOR, BELOW C2 1ST SINGLE LEVEL (Spine Cervical) ARTHRODESIS CERVICAL BELOW C2, 2ND CERVICAL LEVEL (Spine Cervical) POSTERIOR SEGMENTAL INSTRUMENTATION FOLLOWING CERVICAL FUSION 3-6 LEVELS (Spine Cervical) Diagnosis: Pseudoarthrosis of cervical spine, subsequent encounter Radiculopathy, cervical region (Pseudoarthrosis of cervical spine, subsequent encounter [S12.9XXD]) (Radiculopathy, cervical region [M54.12]) Surgeons: Pelon Greenfield MD Responsible Provider: Tita Simms MD Anesthesia Type: general ASA Status: 3 Anesthesia Type: general Airway Type: ETT Last Vitals Vitals Value Taken Time BP 89/48 03/03/24 1150 Temp 37 ?C (98.6 ?F) 03/03/24 1124 Pulse 108 03/03/24 1203 Resp 24 03/03/24 1203 SpO2 95 % 03/03/24 1203 Vitals shown include unfiled device data. Post Anesthesia Patient Status Patient Evaluation: ICU. PACU/ICU Patient Condition: guarded. Anticipated Disposition: ICU planned admission. Neurological Status: sedated. Pulmonary Status: on mechanical ventilation (invasive ventilation) Airway Control: intubated on mechanical ventilation. Cardiovascular Status: guarded. medication administered: inotropes vasopressors Pain Management: clinically adequate Postoperative Hydration: acceptable. Post Operative Nausea/Vomiting Status: no significant post operative nausea or vomiting Recommendation: continue current plan of care, further care per PACU/ICU/floor team and pain control. Other Remarks: Required inotropic support throughout case (Epi gtt 4-6mcg/min combined with norepi 8-12mcg/min). Ararat utilized with initial CI of 1.8 SV 75 and SVR 900-1050). Improved CI (2.5-2.8) with Epi Unable to wean support at conclusion of case. No arrhythmias/ST changes noted intraop. Min. EBL.. Lactate climbing/ PH 7.2 Further cardiac workup warranted. . Anesthesia Observations No notable events were associated with this procedure. Documented by Christiano Hugo SRNA 03/03/2024 11:55 AM EDT SIGNATURE: Tita Simms MD PATIENT NAME: Jason Moore DATE: March 03, 2024 TIME: 12:04 PM CSN: [id number] Normal [facility] ANES PRE-OPon 03-03-2024 ANES PRE-OP HNO ID: [id number] Author: TITA SIMMS MD Service: ? Author Type: Anesthesiologist Type: Anesthesia Preprocedure Evaluation Filed: 03/03/2024 07:14 Note Text: ANESTHESIOLOGY DAY OF SURGERY NOTE : 1970 Procedure Information Date/Time: 03/03/2430 Procedures: ARTHRODESIS CERVICAL POSTERIOR, BELOW C2 1ST SINGLE LEVEL (Spine Cervical) ARTHRODESIS CERVICAL BELOW C2, 2ND CERVICAL LEVEL (Spine Cervical) POSTERIOR SEGMENTAL INSTRUMENTATION FOLLOWING CERVICAL FUSION 3-6 LEVELS (Spine Cervical) Location: [place] [address] / [facility] Surgeons: Pelon Greenfield MD Estimated body mass index is 40.76 kg/m? as calculated from the following: Height as of 02/16/24: 176.5 cm (5' 9.5). Weight as of 02/21/24: 127 kg (280 lb). Most recent hematocrit and potassium results: Hematocrit 46.6 02/16/2024 Potassium 4.3 02/16/2024 Relevant Problems ANESTHESIA (+) JOSELITO (obstructive sleep apnea) CARDIO (+) Hypertension, essential -RENAL (+) Metabolic dysfunction-associated steatohepatitis (MASH) PULMONARY (+) JOSELITO (obstructive sleep apnea) I - PHYSICAL EVALUATION AIRWAY Patient intubated: No. Tracheostomy tube not present Mallampati: IV. TM distance: >3 FB. Neck ROM: full ROM without neurological symptoms. Mouth opening: adequate. Short neck: no. Thick neck: no II - ANESTHESIA PLAN ASA Score: 3 Anesthetic Plan: general Airway type: ETT NPO Status: adequate Beta Bhavin Monitoring Plan Monitoring plan: standard ASA and invasive hemodynamic monitoring. Monitoring method: arterial Line Post Procedure Analgesic Plan Postoperative analgesic plan: multimodal analgesia. Informed Consent Anesthetic risks, benefits, alternatives, personnel and consent discussed: yes. Patient / Responsible Libertarian agrees to proceed: yes Patient / Surrogate agrees to blood products: blood products not planned DNR status not reviewed with patient and/or family prior to surgery. Significant changes in the patient condition since the History and Physical, not otherwise documented in primary service progress note: no. Potential Anesthesia issues that may suggest increased risk of complications or contraindication to planned procedure: none. No vitals data found for the desired time range. No current facility-administered medications on file as of 03/03/2024. Outpatient Medications as of 03/03/2024 Medication Sig amLODIPine (NORVASC) 10 mg tablet Take 1 tablet by mouth once daily. lisinopril (ZESTRIL) 40 mg tablet Take 1 tablet by mouth once daily. gabapentin (NEURONTIN) 300 mg capsule Take 1 capsule by mouth daily at bedtime. For 3 days and then one twice a day for three days and then one three times a day as tolerated. I have interviewed and examined the patient. I have reviewed the medical record and/or the pre-anesthesia evaluation, pertinent labs, and test results. This contains updated information obtained within 48 hours of Surgery/Procedure. SIGNATURE: Tita Simms MD PATIENT NAME: Jason Moore DATE: March 03, 2024 TIME: 7:14 AM CSN: [id number] Normal [facility] ARTERIAL BLOOD GASESon 03-03 Base deficit (BldA) [Moles/Vol] -3 mmol/L Low -2-0 [facility] Comment on above: Order Comment: Althea romo Type: ARTERIAL BLOOD SPECIMEN Ordering Facility: [facility] Address: [address] [place] [address] Performed By: #### A LLMG #### [facility] CLIA [id number] [address] [place], [place] [address] [address] [place] Body temperature 98.6 [degF] Normal [facility] Comment on above: Order Comment: Althea romo Type: ARTERIAL BLOOD SPECIMEN Ordering Facility: [facility] Address: [address] [place] [address] Performed By: #### A LLMG #### [facility] CLIA [id number] [address] [place] [address] [place] Calcium.ionized (Bld) [Mass/Vol] 1.26 mmol/L Normal 1.08-1.30 [facility] Comment on above: Order Comment: Speci men Type: ARTERIAL BLOOD SPECIMEN Ordering Facility: [facility] Address: [address] [place] [address] Performed By: #### A LLMG #### [facility] CLIA [id number] [address] [place] [address] [place] Calcium.ionized adjusted to pH 7.4 (BldA) [Moles/Vol] 1.22 mmol/L Normal 1.08-1.30 [facility] Comment on above: Order Comment: Speci men Type: ARTERIAL BLOOD SPECIMEN Ordering Facility: [facility] Address: [address] [place] [address] Performed By: #### A LLMG #### [facility] CLIA [id number] [address] [place] [address] [place] Carboxyhemoglobin (BldA) [Mass fraction] 1.3 % Normal 0.0-2.0 [facility] Comment on above: Order Comment: Speci men Type: ARTERIAL BLOOD SPECIMEN Ordering Facility: [facility] Address: [address] [place] [address] Result Comment: Carb oxyhemoglobin Reference Range for Smokers: 2.0-8.0% Performed By: #### A LLMG #### [facility] CLIA [id number] [address] [place] [address] [place] CO2 (Bld) [Partial pressure] 42 mm Hg Normal 36-46 [facility] Comment on above: Order Comment: Speci men Type: ARTERIAL BLOOD SPECIMEN Ordering Facility: [facility] Address: [address] [place] [address] Performed By: #### A LLMG #### [facility] CLIA [id number] [address] [place] [address] [place] FIO2 40 % Normal [facility] Comment on above: Order Comment: Speci men Type: ARTERIAL BLOOD SPECIMEN Ordering Facility: [facility] Address: [address] [place] [address] Performed By: #### A LLMG #### [facility] CLIA [id number] [address] [place] [address] [place] Glucose [Mass/Vol] 136 mg/dL High 60-105 [facility] Comment on above: Order Comment: Speci men Type: ARTERIAL BLOOD SPECIMEN Ordering Facility: [facility] Address: [address] [place] [address] Performed By: #### A LLMG #### [facility] CLIA [id number] [address] [place] [address] [place] HCO3 (Bld) [Moles/Vol] 22 mmol/L Normal 22-26 [facility] Comment on above: Order Comment: Speci men Type: ARTERIAL BLOOD SPECIMEN Ordering Facility: [facility] Address: [address] [place] [address] Performed By: #### A LLMG #### [facility] CLIA [id number] [address] [place] [address] [place] Hematocrit (Bld) [Volume fraction] 40.1 % Normal 39.0-51.0 [facility] Comment on above: Order Comment: Speci men Type: ARTERIAL BLOOD SPECIMEN Ordering Facility: [facility] Address: [address] [place] [address] Performed By: #### A LLMG #### [facility] CLIA [id number] [address] [place] [address] [place] Hemoglobin (Bld) [Mass/Vol] 13.1 g/dL Normal 13.0-17.0 [facility] Comment on above: Order Comment: Speci men Type: ARTERIAL BLOOD SPECIMEN Ordering Facility: [facility] Address: [address] [place] [address] Performed By: #### A LLMG #### [facility] CLIA [id number] [address] [place] [address] [place] Lactate [Moles/Vol] 3.0 mmol/L High 0.5-2.2 [facility] Comment on above: Order Comment: Speci men Type: ARTERIAL BLOOD SPECIMEN Ordering Facility: [facility] Address: [address] [place] [address] Performed By: #### A LLMG #### [facility] CLIA [id number] [address] [place] [id number] [place] Methemoglobin (Bld) [Mass fraction] 1.4 % Normal 0.0-1.5 [facility] Comment on above: Order Comment: Speci men Type: ARTERIAL BLOOD SPECIMEN Ordering Facility: [facility] Address: [address] [place] [address] Performed By: #### A LLMG #### [facility] CLIA [id number] [address] [place] [address] [place] O2 THERAPY Ventilator Normal [facility] Comment on above: Order Comment: Speci men Type: ARTERIAL BLOOD SPECIMEN Ordering Facility: [facility] Address: [address] [place] [address] Performed By: #### A LLMG #### [facility] CLIA [id number] [address] [place], [place] [id number] [place] Oxygen (Bld) [Partial pressure] 77 mm Hg Low 85-95 [facility] Comment on above: Order Comment: Speci men Type: ARTERIAL BLOOD SPECIMEN Ordering Facility: [facility] Address: [address] [place], [place] [id number] Performed By: #### A LLMG #### [facility] CLIA [id number] [address] [place], [place] [address] [place] Oxyhemoglobin (BldA) [Mass fraction] 92 % Low 95-98 [facility] Comment on above: Order Comment: Speci men Type: ARTERIAL BLOOD SPECIMEN Ordering Facility: [facility] Address: [address] [place] [address] Performed By: #### A LLMG #### [facility] CLIA [id number] [address] [place] [address] [place] pH (Bld) 7.34 [pH] Low 7.35-7.45 [facility] Comment on above: Order Comment: Speci men Type: ARTERIAL BLOOD SPECIMEN Ordering Facility: [facility] Address: [address] [place] [address] Performed By: #### A LLMG #### [facility] CLIA [id number] [address] [place] [address] [place] PO2 / FIO2 RATIO 193 mmHg Low >300 [facility] Comment on above: Order Comment: Speci men Type: ARTERIAL BLOOD SPECIMEN Ordering Facility: [facility] Address: [address] [place] [address] Performed By: #### A LLMG #### [facility] CLIA [id number] [address] [place] [address] [place] Potassium [Moles/Vol] 4.8 mmol/L Normal 3.5-5.0 [facility] Comment on above: Order Comment: Speci men Type: ARTERIAL BLOOD SPECIMEN Ordering Facility: [facility] Address: [address] [place] [address] Performed By: #### A LLMG #### [facility] CLIA [id number] [address] [place] [address] [place] Sodium [Moles/Vol] 137 mmol/L Normal 136-144 [facility] Comment on above: Order Comment: Speci men Type: ARTERIAL BLOOD SPECIMEN Ordering Facility: [facility] Address: [address] [place] [address] Performed By: #### A LLMG #### [facility] CLIA [id number] [address] [place] [address] [place] Base deficit (BldA) [Moles/Vol] -10 mmol/L Low -2-0 [facility] Comment on above: Order Comment: Speci men Type: ARTERIAL BLOOD SPECIMEN Ordering Facility: [facility] Address: [address] [place] [address] Performed By: #### A LLMG #### [facility] CLIA [id number] [address] [place] [address] [place] Body temperature 98.6 [degF] Normal [facility] Comment on above: Order Comment: Speci men Type: ARTERIAL BLOOD SPECIMEN Ordering Facility: [facility] Address: [address] [place] [address] Performed By: #### A LLMG #### [facility] CLIA [id number] [address] [place] [address] [place] Calcium.ionized (Bld) [Mass/Vol] 1.27 mmol/L Normal 1.08-1.30 [facility] Comment on above: Order Comment: Speci men Type: ARTERIAL BLOOD SPECIMEN Ordering Facility: [facility] Address: [address] [place] [address] Performed By: #### A LLMG #### [facility] CLIA [id number] [address] [place] [address] [place] Calcium.ionized adjusted to pH 7.4 (BldA) [Moles/Vol] 1.15 mmol/L Normal 1.08-1.30 [facility] Comment on above: Order Comment: Speci men Type: ARTERIAL BLOOD SPECIMEN Ordering Facility: [facility] Address: [address] [place] [address] Performed By: #### A LLMG #### [facility] CLIA [id number] [address] [place] [address] [place] Carboxyhemoglobin (BldA) [Mass fraction] 1.0 % Normal 0.0-2.0 [facility] Comment on above: Order Comment: Speci men Type: ARTERIAL BLOOD SPECIMEN Ordering Facility: [facility] Address: [address] [place] [address] Result Comment: Carb oxyhemoglobin Reference Range for Smokers: 2.0-8.0% Performed By: #### A LLMG #### [facility] CLIA [id number] [address] [place] [address] [place] CO2 (Bld) [Partial pressure] 42 mm Hg Normal 36-46 [facility] Comment on above: Order Comment: Speci men Type: ARTERIAL BLOOD SPECIMEN Ordering Facility: [facility] Address: [address] [place] [address] Performed By: #### A LLMG #### [facility] CLIA [id number] [address] [place] [address] [place] FIO2 60 % Normal [facility] Comment on above: Order Comment: Speci men Type: ARTERIAL BLOOD SPECIMEN Ordering Facility: [facility] Address: [address] [place] [address] Performed By: #### A LLMG #### [facility] CLIA [id number] [address] [place] [address] [place] Glucose [Mass/Vol] 172 mg/dL High 60-105 [facility] Comment on above: Order Comment: Speci men Type: ARTERIAL BLOOD SPECIMEN Ordering Facility: [facility] Address: [address] [place] [address] Performed By: #### A LLMG #### [facility] CLIA [id number] [address] [place] [address] [place] HCO3 (Bld) [Moles/Vol] 17 mmol/L Low 22-26 [facility] Comment on above: Order Comment: Speci men Type: ARTERIAL BLOOD SPECIMEN Ordering Facility: [facility] Address: [address] [place] [address] Performed By: #### A LLMG #### [facility] CLIA [id number] [address] [place] [address] [place] Hematocrit (Bld) [Volume fraction] 39.9 % Normal 39.0-51.0 [facility] Comment on above: Order Comment: Speci men Type: ARTERIAL BLOOD SPECIMEN Ordering Facility: [facility] Address: [address] [place] [address] Performed By: #### A LLMG #### [facility] CLIA [id number] [address] [place] [address] [place] Hemoglobin (Bld) [Mass/Vol] 13.0 g/dL Normal 13.0-17.0 [facility] Comment on above: Order Comment: Speci men Type: ARTERIAL BLOOD SPECIMEN Ordering Facility: [facility] Address: [address] [place] [address] Performed By: #### A LLMG #### [facility] CLIA [id number] [address] [place] [address] [place] Lactate [Moles/Vol] 6.3 mmol/L High 0.5-2.2 [facility] Comment on above: Order Comment: Speci men Type: ARTERIAL BLOOD SPECIMEN Ordering Facility: [facility] Address: [address] [place] [address] Performed By: #### A LLMG #### [facility] CLIA [id number] [address] [place] [address] [place] Methemoglobin (Bld) [Mass fraction] 1.4 % Normal 0.0-1.5 [facility] Comment on above: Order Comment: Speci men Type: ARTERIAL BLOOD SPECIMEN Ordering Facility: [facility] Address: [address] [place] [address] Performed By: #### A LLMG #### [facility] CLIA [id number] [address] [place] [address] [place] O2 THERAPY Ventilator Normal [facility] Comment on above: Order Comment: Speci men Type: ARTERIAL BLOOD SPECIMEN Ordering Facility: [facility] Address: [address] [place] [address] Performed By: #### A LLMG #### [facility] CLIA [id number] [address] [place] [address] [place] Oxygen (Bld) [Partial pressure] 140 mm Hg High 85-95 [facility] Comment on above: Order Comment: Speci men Type: ARTERIAL BLOOD SPECIMEN Ordering Facility: [facility] Address: [address] [place] [address] Performed By: #### A LLMG #### [facility] CLIA [id number] [address] [place] [address] [place] Oxyhemoglobin (BldA) [Mass fraction] 96 % Normal 95-98 [facility] Comment on above: Order Comment: Speci men Type: ARTERIAL BLOOD SPECIMEN Ordering Facility: [facility] Address: [address] [place] [address] Performed By: #### A LLMG #### [facility] CLIA [id number] [address] [place] [address] [place] PEEP/CPAP 10 cmH2O Normal [facility] Comment on above: Order Comment: Speci men Type: ARTERIAL BLOOD SPECIMEN Ordering Facility: [facility] Address: [address] [place] [address] Performed By: #### A LLMG #### [facility] CLIA [id number] [address] [place] [address] [place] pH (Bld) 7.23 [pH] Low 7.35-7.45 [facility] Comment on above: Order Comment: Speci men Type: ARTERIAL BLOOD SPECIMEN Ordering Facility: [facility] Address: [address] [place] [address] Performed By: #### A LLMG #### [facility] CLIA [id number] [address] [place] [address] [place] PO2 / FIO2 RATIO 233 mmHg Low >300 [facility] Comment on above: Order Comment: Speci men Type: ARTERIAL BLOOD SPECIMEN Ordering Facility: [facility] Address: [address] [place] [address] Performed By: #### A LLMG #### [facility] CLIA [id number] [address] [place] [address] [place] Potassium [Moles/Vol] 4.5 mmol/L Normal 3.5-5.0 [facility] Comment on above: Order Comment: Speci men Type: ARTERIAL BLOOD SPECIMEN Ordering Facility: [facility] Address: [address] [place] [address] Performed By: #### A LLMG #### [facility] CLIA [id number] [address] [place] [address] [place] Sodium [Moles/Vol] 139 mmol/L Normal 136-144 [facility] Comment on above: Order Comment: Speci men Type: ARTERIAL BLOOD SPECIMEN Ordering Facility: [facility] Address: [address] [place] [address] Performed By: #### A LLMG #### [facility] CLIA [id number] [address] [place] [address] [place] Base deficit (BldA) [Moles/Vol] -12 mmol/L Low -2-0 [facility] Comment on above: Order Comment: Speci men Type: SWAB Ordering Facility: [facility] Address: [address] [place] [address] Performed By: #### S APCR #### [facility] CLIA [id number] [address] [place] [address] [place] Body temperature 98.6 [degF] Normal [facility] Comment on above: Order Comment: Speci men Type: SWAB Ordering Facility: [facility] Address: [address] [place] [address] Performed By: #### S APCR #### [facility] CLIA [id number] [address] [place] [address] [place] Calcium.ionized (Bld) [Mass/Vol] 1.24 mmol/L Normal 1.08-1.30 [facility] Comment on above: Order Comment: Speci men Type: SWAB Ordering Facility: [facility] Address: [address] [place] [address] Performed By: #### S APCR #### [facility] CLIA [id number] [address] [place] [address] [place] Calcium.ionized adjusted to pH 7.4 (BldA) [Moles/Vol] Normal [facility] Comment on above: Order Comment: Speci men Type: SWAB Ordering Facility: [facility] Address: [address] [place] [address] Result Comment: Susie ured pH is <7.20. Unable to report normalized Calcium. Performed By: #### S APCR #### [facility] CLIA [id number] [address] [place] [address] [place] Carboxyhemoglobin (BldA) [Mass fraction] 0.7 % Normal 0.0-2.0 [facility] Comment on above: Order Comment: Speci men Type: SWAB Ordering Facility: [facility] Address: [address] [place] [address] Result Comment: Carb oxyhemoglobin Reference Range for Smokers: 2.0-8.0% Performed By: #### S APCR #### [facility] CLIA [id number] [address] [place] [address] [place] CO2 (Bld) [Partial pressure] 53 mm Hg High 36-46 [facility] Comment on above: Order Comment: Speci men Type: SWAB Ordering Facility: [facility] Address: [address] [place] [address] Performed By: #### S APCR #### [facility] CLIA [id number] [address] [place] [address] [place] COMMENTS Critical Value: PH Normal [facility] Comment on above: Order Comment: Speci men Type: SWAB Ordering Facility: [facility] Address: [address] [place] [address] Performed By: #### S APCR #### [facility] CLIA [id number] [address] [place] [address] [place] DATE/TIME NOTIFIED [id number] AM Normal [facility] Comment on above: Order Comment: Speci men Type: SWAB Ordering Facility: [facility] Address: [address] [place] [address] Performed By: #### S APCR #### [facility] CLIA [id number] [address] [place] [address] [place] FIO2 50 % Normal [facility] Comment on above: Order Comment: Speci men Type: SWAB Ordering Facility: [facility] Address: [address] [place] [address] Performed By: #### S APCR #### [facility] CLIA [id number] [address] [place] [address] [place] Glucose [Mass/Vol] 189 mg/dL High 60-105 [facility] Comment on above: Order Comment: Speci men Type: SWAB Ordering Facility: [facility] Address: [address] [place] [address] Performed By: #### S APCR #### [facility] CLIA [id number] [address] [place] [address] [place] HCO3 (Bld) [Moles/Vol] 17 mmol/L Low 22-26 [facility] Comment on above: Order Comment: Speci men Type: SWAB Ordering Facility: [facility] Address: [address] [place] [address] Performed By: #### S APCR #### [facility] CLIA [id number] [address] [place] [address] [place] Hematocrit (Bld) [Volume fraction] 42.0 % Normal 39.0-51.0 [facility] Comment on above: Order Comment: Speci men Type: SWAB Ordering Facility: [facility] Address: [address] [place] [address] Performed By: #### S APCR #### [facility] CLIA [id number] [address] [place] [address] [place] Hemoglobin (Bld) [Mass/Vol] 13.7 g/dL Normal 13.0-17.0 [facility] Comment on above: Order Comment: Speci men Type: SWAB Ordering Facility: [facility] Address: [address] [place] [address] Performed By: #### S APCR #### [facility] CLIA [id number] [address] [place] [address] [place] Lactate [Moles/Vol] 7.4 mmol/L High 0.5-2.2 [facility] Comment on above: Order Comment: Speci men Type: SWAB Ordering Facility: [facility] Address: [address] [place] [address] Performed By: #### S APCR #### [facility] CLIA [id number] [address] [place] [address] [place] Methemoglobin (Bld) [Mass fraction] 0.7 % Normal 0.0-1.5 [facility] Comment on above: Order Comment: Speci men Type: SWAB Ordering Facility: [facility] Address: [address] [place] [address] Performed By: #### S APCR #### [facility] CLIA [id number] [address] [place] [address] [place] NOTIFIED WHOM Karina Polo RN [id number] Ferdinand Mcneal Normal [facility] Comment on above: Order Comment: Speci men Type: SWAB Ordering Facility: [facility] Address: [address] [place] [id number] Performed By: #### S APCR #### [facility] CLIA [id number] [address] [place] [address] [place] O2 THERAPY Ventilator Normal [facility] Comment on above: Order Comment: Speci men Type: SWAB Ordering Facility: [facility] Address: [address] [place] [address] Performed By: #### S APCR #### [facility] CLIA [id number] [address] [place] [id number] [place] Oxygen (Bld) [Partial pressure] 98 mm Hg High 85-95 [facility] Comment on above: Order Comment: Speci men Type: SWAB Ordering Facility: [facility] Address: [address] [place] [address] Performed By: #### S APCR #### [facility] CLIA [id number] [address] [place] [address] [place] Oxyhemoglobin (BldA) [Mass fraction] 93 % Low 95-98 [facility] Comment on above: Order Comment: Speci men Type: SWAB Ordering Facility: [facility] Address: [address] [place] [address] Performed By: #### S APCR #### [facility] CLIA [id number] [address] [place] [address] [place] pH (Bld) 7.13 [pH] Critically low 7.35-7.45 [facility] Comment on above: Order Comment: Speci men Type: SWAB Ordering Facility: [facility] Address: [address] [place] [address] Performed By: #### S APCR #### [facility] CLIA [id number] [address] [place], [place] [id number] [place] PO2 / FIO2 RATIO 196 mmHg Low >300 [facility] Comment on above: Order Comment: Speci men Type: SWAB Ordering Facility: [facility] Address: [address] [place] [address] Performed By: #### S APCR #### [facility] CLIA [id number] [address] [place] [address] [place] Potassium [Moles/Vol] 4.1 mmol/L Normal 3.5-5.0 [facility] Comment on above: Order Comment: Speci men Type: SWAB Ordering Facility: [facility] Address: [address] [place] [address] Performed By: #### S APCR #### [facility] CLIA [id number] [address] [place] [address] [place] Sodium [Moles/Vol] 137 mmol/L Normal 136-144 [facility] Comment on above: Order Comment: Speci men Type: SWAB Ordering Facility: [facility] Address: [address] [place] [address] Performed By: #### S APCR #### [facility] CLIA [id number] [address] [place] [address] [place] Base deficit (BldA) [Moles/Vol] -9 mmol/L Low -2-0 [facility] Comment on above: Order Comment: Speci men Type: ARTERIAL BLOOD SPECIMENOrdering Facility: [facility] Address: [address] [place] [address] Performed By: #### A LLBG ####[facility] [id number] [place] [address] [place] Calcium.ionized (Bld) [Mass/Vol] 1.29 mmol/L Normal 1.08-1.30 [facility] Comment on above: Order Comment: Speci men Type: ARTERIAL BLOOD SPECIMENOrdering Facility: [facility] Address: [address] [place] [address] Performed By: #### A LLBG ####[facility] [id number] [place] [address] [place] Calcium.ionized adjusted to pH 7.4 (BldA) [Moles/Vol] 1.18 mmol/L Normal 1.08-1.30 [facility] Comment on above: Order Comment: Speci men Type: ARTERIAL BLOOD SPECIMENOrdering Facility: [facility] Address: [address] [place] [address] Performed By: #### A LLBG ####[facility] [id number] [place] [address] [place] Carboxyhemoglobin (BldA) [Mass fraction] 0.9 % Normal 0.0-2.0 [facility] Comment on above: Order Comment: Speci men Type: ARTERIAL BLOOD SPECIMENOrdering Facility: [facility] Address: [address] [place] [address] Result Comment: Carb oxyhemoglobin Reference Range for Smokers: 2.0-8.0% Performed By: #### A LLBG ####[facility] [id number] [place] [address] [place] CO2 (Bld) [Partial pressure] 41 mm Hg Normal 36-46 [facility] Comment on above: Order Comment: Speci men Type: ARTERIAL BLOOD SPECIMENOrdering Facility: [facility] Address: [address] [place] [address] Performed By: #### A LLBG ####[facility] [id number] [place] [address] [place] CO2 adjusted to patient's actual temperature (Bld) [Partial pressure] 41 mmHg Normal 36-46 [facility] Comment on above: Order Comment: Speci men Type: ARTERIAL BLOOD SPECIMENOrdering Facility: [facility] Address: [address] [place] [address] Performed By: #### A LLBG ####[facility] [id number] [place] [address] [place] Glucose [Mass/Vol] 154 mg/dL High 60-105 [facility] Comment on above: Order Comment: Speci men Type: ARTERIAL BLOOD SPECIMENOrdering Facility: [facility] Address: [address] [place] [address] Performed By: #### A LLBG ####[facility] [id number] [place] [address] [place] HCO3 (Bld) [Moles/Vol] 17 mmol/L Low 22-26 [facility] Comment on above: Order Comment: Speci men Type: ARTERIAL BLOOD SPECIMENOrdering Facility: [facility] Address: [address] [place] [address] Performed By: #### A LLBG ####[facility] [id number] [place] [address] [place] Hematocrit (Bld) [Volume fraction] 40.9 % Normal 39.0-51.0 [facility] Comment on above: Order Comment: Speci men Type: ARTERIAL BLOOD SPECIMENOrdering Facility: [facility] Address: [address] [place] [address] Performed By: #### A LLBG ####[facility] [id number] [place] [address] [place] Hemoglobin (Bld) [Mass/Vol] 13.3 g/dL Normal 13.0-17.0 [facility] Comment on above: Order Comment: Speci men Type: ARTERIAL BLOOD SPECIMENOrdering Facility: [facility] Address: [address] [place] [address] Performed By: #### A LLBG ####[facility] [id number] [place] [address] [place] Lactate [Moles/Vol] 5.6 mmol/L High 0.5-2.2 [facility] Comment on above: Order Comment: Speci men Type: ARTERIAL BLOOD SPECIMENOrdering Facility: [facility] Address: [address] [place] [address] Performed By: #### A LLBG ####[facility] [id number] [place] [address] [place] Methemoglobin (Bld) [Mass fraction] 0.8 % Normal 0.0-1.5 [facility] Comment on above: Order Comment: Speci men Type: ARTERIAL BLOOD SPECIMENOrdering Facility: [facility] Address: [address] [place] [address] Performed By: #### A LLBG ####[facility] [id number] [place] [address] [place] Oxygen (Bld) [Partial pressure] 216 mm Hg High 85-95 [facility] Comment on above: Order Comment: Speci men Type: ARTERIAL BLOOD SPECIMENOrdering Facility: [facility] Address: [address] [place] [address] Performed By: #### A LLBG ####[facility] [id number] [place] [address] [place] Oxygen adjusted to patient's actual temperature (Bld) [Partial pressure] 216 mmHg High 85-95 [facility] Comment on above: Order Comment: Speci men Type: ARTERIAL BLOOD SPECIMENOrdering Facility: [facility] Address: [address] [place] [address] Performed By: #### A LLBG ####[facility] [id number] [place] [address] [place] Oxyhemoglobin (BldA) [Mass fraction] 98 % Normal 95-98 [facility] Comment on above: Order Comment: Speci men Type: ARTERIAL BLOOD SPECIMENOrdering Facility: [facility] Address: [address] [place] [address] Performed By: #### A LLBG ####[facility] [id number] [place] [address] [place] pH (Bld) 7.25 [pH] Low 7.35-7.45 [facility] Comment on above: Order Comment: Speci men Type: ARTERIAL BLOOD SPECIMENOrdering Facility: [facility] Address: [address] [place] [address] Performed By: #### A LLBG ####[facility] [id number] [place] [address] [place] pH adjusted to patient's actual temperature (Bld) 7.25 Low 7.35-7.45 [facility] Comment on above: Order Comment: Speci men Type: ARTERIAL BLOOD SPECIMENOrdering Facility: [facility] Address: [address] [place] [address] Performed By: #### A LLBG ####[facility] [id number] [place] [address] [place] Potassium [Moles/Vol] 4.1 mmol/L Normal 3.5-5.0 [facility] Comment on above: Order Comment: Speci men Type: ARTERIAL BLOOD SPECIMENOrdering Facility: [facility] Address: [address] [place] [address] Performed By: #### A LLBG ####[facility] [id number] [place] [address] [place] Sodium [Moles/Vol] 138 mmol/L Normal 136-144 [facility] Comment on above: Order Comment: Speci men Type: ARTERIAL BLOOD SPECIMENOrdering Facility: [facility] Address: [address] [place] [address] Performed By: #### A LLBG ####[facility] [id number] [place] [address] [place] ARTERIAL BLOOD GASES WITH IO NIZED MAGNESIUMon 03-03-2024 Base deficit (BldA) [Moles/Vol] -8 mmol/L Low -2-0 [facility] Comment on above: Order Comment: Speci men Type: ARTERIAL BLOOD SPECIMEN Ordering Facility: [facility] Address: [address] [place] [address] Performed By: #### A LLMG #### [facility] CLIA [id number] [address] [place] [address] [place] Calcium.ionized (Bld) [Mass/Vol] 1.22 mmol/L Normal 1.08-1.30 [facility] Comment on above: Order Comment: Speci men Type: ARTERIAL BLOOD SPECIMEN Ordering Facility: [facility] Address: [address] [place] [address] Performed By: #### A LLMG #### [facility] IA [id number] [address] [place] [address] [place] Calcium.ionized adjusted to pH 7.4 (BldA) [Moles/Vol] 1.14 mmol/L Normal 1.08-1.30 [facility] Comment on above: Order Comment: Speci men Type: ARTERIAL BLOOD SPECIMEN Ordering Facility: [facility] Address: [address] [place] [address] Performed By: #### A LLMG #### [facility] IA [id number] [address] [place] [address] [place] Carboxyhemoglobin (BldA) [Mass fraction] 0.5 % Normal 0.0-2.0 [facility] Comment on above: Order Comment: Speci men Type: ARTERIAL BLOOD SPECIMEN Ordering Facility: [facility] Address: [address] [place] [address] Result Comment: Carb oxyhemoglobin Reference Range for Smokers: 2.0-8.0% Performed By: #### A LLMG #### [facility] IA [id number] [address] [place] [address] [place] CO2 (Bld) [Partial pressure] 40 mm Hg Normal 36-46 [facility] Comment on above: Order Comment: Speci men Type: ARTERIAL BLOOD SPECIMEN Ordering Facility: [facility] Address: [address] [place] [address] Performed By: #### A LLMG #### [facility] CLIA [id number] [address] [place] [address] [place] CO2 adjusted to patient's actual temperature (Bld) [Partial pressure] 40 mmHg Normal 36-46 [facility] Comment on above: Order Comment: Speci men Type: ARTERIAL BLOOD SPECIMEN Ordering Facility: [facility] Address: [address] [place] [address] Performed By: #### A LLMG #### [facility] CLIA [id number] [address] [place] [address] [place] Glucose [Mass/Vol] 131 mg/dL High 60-105 [facility] Comment on above: Order Comment: Speci men Type: ARTERIAL BLOOD SPECIMEN Ordering Facility: [facility] Address: [address] [place] [address] Performed By: #### A LLMG #### [facility] CLIA [id number] [address] [place] [address] [place] HCO3 (Bld) [Moles/Vol] 18 mmol/L Low 22-26 [facility] Comment on above: Order Comment: Speci men Type: ARTERIAL BLOOD SPECIMEN Ordering Facility: [facility] Address: [address] [place] [address] Performed By: #### A LLMG #### [facility] CLIA [id number] [address] [place] [address] [place] Hematocrit (Bld) [Volume fraction] 42.8 % Normal 39.0-51.0 [facility] Comment on above: Order Comment: Speci men Type: ARTERIAL BLOOD SPECIMEN Ordering Facility: [facility] Address: [address] [place] [address] Performed By: #### A LLMG #### [facility] CLIA [id number] [address] [place] [address] [place] Hemoglobin (Bld) [Mass/Vol] 13.9 g/dL Normal 13.0-17.0 [facility] Comment on above: Order Comment: Speci men Type: ARTERIAL BLOOD SPECIMEN Ordering Facility: [facility] Address: [address] [place] [address] Performed By: #### A LLMG #### [facility] CLIA [id number] [address] [place] [address] [place] Lactate [Moles/Vol] 3.6 mmol/L High 0.5-2.2 [facility] Comment on above: Order Comment: Speci men Type: ARTERIAL BLOOD SPECIMEN Ordering Facility: [facility] Address: [address] [place] [address] Performed By: #### A LLMG #### [facility] CLIA [id number] [address] [place] [address] [place] Magnesium [Moles/Vol] 0.60 mmol/L Normal 0.45-0.60 [facility] Comment on above: Order Comment: Speci men Type: ARTERIAL BLOOD SPECIMEN Ordering Facility: [facility] Address: [address] [place] [address] Performed By: #### A LLMG #### [facility] CLIA [id number] [address] [place] [address] [place] Methemoglobin (Bld) [Mass fraction] 0.8 % Normal 0.0-1.5 [facility] Comment on above: Order Comment: Speci men Type: ARTERIAL BLOOD SPECIMEN Ordering Facility: [facility] Address: [address] [place] [address] Performed By: #### A LLMG #### [facility] CLIA [id number] [address] [place] [address] [place] Oxygen (Bld) [Partial pressure] 139 mm Hg High 85-95 [facility] Comment on above: Order Comment: Speci men Type: ARTERIAL BLOOD SPECIMEN Ordering Facility: [facility] Address: [address] [place] [address] Performed By: #### A LLMG #### [facility] CLIA [id number] [address] [place] [address] [place] Oxygen adjusted to patient's actual temperature (Bld) [Partial pressure] 139 mmHg High 85-95 [facility] Comment on above: Order Comment: Speci men Type: ARTERIAL BLOOD SPECIMEN Ordering Facility: [facility] Address: [address] [place] [address] Performed By: #### A [facility]MG #### [facility] CLIA [id number] [address] [place] [address] [place] Oxyhemoglobin (BldA) [Mass fraction] 97 % Normal 95-98 [facility] Comment on above: Order Comment: Speci men Type: ARTERIAL BLOOD SPECIMEN Ordering Facility: [facility] Address: [address] [place] [address] Performed By: #### A LLMG #### [facility] CLIA [id number] [address] [place] [address] [place] pH (Bld) 7.27 [pH] Low 7.35-7.45 [facility] Comment on above: Order Comment: Speci men Type: ARTERIAL BLOOD SPECIMEN Ordering Facility: [facility] Address: [address] [place] [address] Performed By: #### A LLMG #### [facility] CLIA [id number] [address] [place] [address] [place] pH adjusted to patient's actual temperature (Bld) 7.27 Low 7.35-7.45 [facility] Comment on above: Order Comment: Speci men Type: ARTERIAL BLOOD SPECIMEN Ordering Facility: [facility] Address: [address] [place] [address] Performed By: #### A LLMG #### [facility] CLIA [id number] [address] [place] [address] [place] Potassium [Moles/Vol] 4.2 mmol/L Normal 3.5-5.0 [facility] Comment on above: Order Comment: Speci men Type: ARTERIAL BLOOD SPECIMEN Ordering Facility: [facility] Address: [address] [place] [address] Performed By: #### A LLMG #### [facility] CLIA [id number] [address] [place] [address] [place] Sodium [Moles/Vol] 139 mmol/L Normal 136-144 [facility] Comment on above: Order Comment: Speci men Type: ARTERIAL BLOOD SPECIMEN Ordering Facility: [facility] Address: [address] [place] [address] Performed By: #### A LLMG #### [facility] CLIA [id number] [address] [place] [address] [place] B-HYDROXYBUTYRATEon 03-03-20 24 Beta hydroxybutyrate [Moles/Vol] 0.34 mmol/L High <0.28 [facility] Comment on above: Order Comment: Speci men Type: BLOOD SPECIMEN Ordering Facility: [facility] Address: [address] [place] [address] Result Comment: This test was developed and its performance characteristics determined by [facility] ([facility]). It has not been cleared or approved by the FDA. [facility] is regulated under CLIA as qualified to perform high-complexity testing. This test is used for clinical purposes. It should not be regarded as investigational or for research. Performed By: #### B HB #### [facility] CLIA [id number] [address] [place] [address] [place] BRIEF OP NOTon 03-03-2024 BRIEF OP NOT HNO ID: [id number] Author: DORY GAFFNEY MD Service: Neurosurgery Author Type: Resident Type: Brief Op Note Filed: 03/03/2024 10:20 Note Text: BRIEF OPERATIVE / PROCEDURE NOTE LOG ID: [id number] SURGERY/PROCEDURE DATE: 03/03/2024 INCISION/PROCEDURE START TIME: 8:56 AM INCISION CLOSE/PROCEDURE END TIME: 10:16 AM SURGEON(S)/PROCEDURALIST(S ) AND ROUTE JUMPER(S): Surgeon(s) and Role: * Pelon Greenfield MD - Primary * Dory Gaffney MD - Resident - Assisting No Additional Staff SURGERY/PROCEDURE(S): 1) Right C5/6 and C6/7 foraminotomy ANESTHESIA: General FINDINGS: 1) Satisfactory foraminotomy 2) No abnormal motion noted between C5/6 and C6/7; appears to be fused ESTIMATED BLOOD LOSS: 50 mls SPECIMENS: None COMPLICATIONS: None None CLOSURE TECHNIQUE: Primary PRE-OP/PRE-PROCEDURE DIAGNOSIS: Cervical radiculopathy POST-OP/POST-PROCEDURE DIAGNOSIS: Same as Preop SIGNATURE: Dory Gaffney MD PATIENT NAME: Jason Moore DATE: March 03, 2024 TIME: 10:19 AM Normal [facility] CBC panel Auto (Bld)on 03-03 Erythrocyte distribution width (RBC) [Ratio] 11.9 % Normal 11.5-15.0 [facility] Comment on above: Order Comment: Speci men Type: ARTERIAL BLOOD SPECIMEN Ordering Facility: [facility] Address: [address] [place] [address] Performed By: #### A LLMG #### [facility] CLIA [id number] [address] [place] [address] [place] Hematocrit (Bld) [Volume fraction] 39.8 % Normal 39.0-51.0 [facility] Comment on above: Order Comment: Speci men Type: ARTERIAL BLOOD SPECIMEN Ordering Facility: [facility] Address: [address] [place] [address] Performed By: #### A LLMG #### [facility] CLIA [id number] [address] [place] [address] [place] Hemoglobin (Bld) [Mass/Vol] 13.3 g/dL Normal 13.0-17.0 [facility] Comment on above: Order Comment: Speci men Type: ARTERIAL BLOOD SPECIMEN Ordering Facility: [facility] Address: [address] [place] [address] Performed By: #### A LLMG #### [facility] CLIA [id number] [address] [place] [address] [place] MCH (RBC) [Entitic mass] 33.8 pg Normal 26.0-34.0 [facility] Comment on above: Order Comment: Speci men Type: ARTERIAL BLOOD SPECIMEN Ordering Facility: [facility] Address: [address] [place] [address] Performed By: #### A LLMG #### [facility] CLIA [id number] [address] [place] [address] [place] MCHC (RBC) [Mass/Vol] 33.4 g/dL Normal 30.5-36.0 [facility] Comment on above: Order Comment: Speci men Type: ARTERIAL BLOOD SPECIMEN Ordering Facility: [facility] Address: [address] [place] [address] Performed By: #### A LLMG #### [facility] CLIA [id number] [address] [place] [address] [place] MCV (RBC) [Entitic vol] 101.3 fL High 80.0-100.0 [facility] Comment on above: Order Comment: Speci men Type: ARTERIAL BLOOD SPECIMEN Ordering Facility: [facility] Address: [address] [place] [address] Performed By: #### A LLMG #### [facility] CLIA [id number] [address] [place] [address] [place] Nucleated RBC (Bld) [#/Vol] 10*3/uL Normal <0.01 [facility] Comment on above: Order Comment: Speci men Type: ARTERIAL BLOOD SPECIMEN Ordering Facility: [facility] Address: [address] [place] [address] Performed By: #### A LLMG #### [facility] CLIA [id number] [address] [place] [address] [place] Platelet mean volume (Bld) [Entitic vol] 10.6 fL Normal 9.0-12.7 [facility] Comment on above: Order Comment: Speci men Type: ARTERIAL BLOOD SPECIMEN Ordering Facility: [facility] Address: [address] [place] [address] Performed By: #### A LLMG #### [facility] CLIA [id number] [address] [place] [address] [place] Platelets (Bld) [#/Vol] 234 10*3/uL Normal 150-400 [facility] Comment on above: Order Comment: Speci men Type: ARTERIAL BLOOD SPECIMEN Ordering Facility: [facility] Address: [address] [place] [address] Performed By: #### A LLMG #### [facility] CLIA [id number] [address] [place] [address] [place] RBC (Bld) [#/Vol] 3.93 10*6/uL Low 4.20-6.00 [facility] Comment on above: Order Comment: Speci men Type: ARTERIAL BLOOD SPECIMEN Ordering Facility: [facility] Address: [address] [place] [address] Performed By: #### A LLMG #### [facility] CLIA [id number] [address] [place] [address] [place] WBC (Bld) [#/Vol] 12.49 10*3/uL High 3.70-11.00 [facility] Comment on above: Order Comment: Speci men Type: ARTERIAL BLOOD SPECIMEN Ordering Facility: [facility] Address: [address] [place] [address] Performed By: #### A LLMG #### [facility] CLIA [id number] [address] [place] [address] [place] Comprehensive metabolic 2000 panelon 03-03-2024 Albumin [Mass/Vol] 4.5 g/dL Normal 3.9-4.9 [facility] Comment on above: Order Comment: Speci men Type: SWAB Ordering Facility: [facility] Address: [address] [place] [address] Performed By: #### S APCR #### [facility] CLIA [id number] [address] [place] [address] [place] ALP [Catalytic activity/Vol] 79 U/L Normal 38-113 [facility] Comment on above: Order Comment: Speci men Type: SWAB Ordering Facility: [facility] Address: [address] [place] [address] Performed By: #### S APCR #### [facility] CLIA [id number] [address] [place] [address] [place] ALT [Catalytic activity/Vol] 43 U/L Normal 10-54 [facility] Comment on above: Order Comment: Speci men Type: SWAB Ordering Facility: [facility] Address: [address] [place] [address] Performed By: #### S APCR #### [facility] CLIA [id number] [address] [place] [address] [place] Anion gap [Moles/Vol] 22 mmol/L High 8-15 [facility] Comment on above: Order Comment: Speci men Type: SWAB Ordering Facility: [facility] Address: [address] [place] [address] Performed By: #### S APCR #### [facility] CLIA [id number] [address] [place] [address] [place] AST [Catalytic activity/Vol] 44 U/L High 14-40 [facility] Comment on above: Order Comment: Speci men Type: SWAB Ordering Facility: [facility] Address: [address] [place] [address] Performed By: #### S APCR #### [facility] CLIA [id number] [address] [place] [address] [place] Bilirubin [Mass/Vol] 0.3 mg/dL Normal 0.2-1.3 [facility] Comment on above: Order Comment: Speci men Type: SWAB Ordering Facility: [facility] Address: [address] [place] [address] Performed By: #### S APCR #### [facility] CLIA [id number] [address] [place] [address] [place] Calcium [Mass/Vol] 9.0 mg/dL Normal 8.5-10.2 [facility] Comment on above: Order Comment: Speci men Type: SWAB Ordering Facility: [facility] Address: [address] [place] [address] Performed By: #### S APCR #### [facility] CLIA [id number] [address] [place] [address] [place] Chloride [Moles/Vol] 100 mmol/L Normal 98-107 [facility] Comment on above: Order Comment: Speci men Type: SWAB Ordering Facility: [facility] Address: [address] [place] [address] Performed By: #### S APCR #### [facility] CLIA [id number] [address] [place] [address] [place] CO2 [Moles/Vol] 16 mmol/L Low 22-30 [facility] Comment on above: Order Comment: Speci men Type: SWAB Ordering Facility: [facility] Address: [address] [place] [address] Performed By: #### S APCR #### [facility] CLIA [id number] [address] [place] [address] [place] Creatinine [Mass/Vol] 1.89 mg/dL High 0.73-1.22 [facility] Comment on above: Order Comment: Speci men Type: SWAB Ordering Facility: [facility] Address: [address] [place], [place] [id number] Performed By: #### S APCR #### [facility] CLIA [id number] [address] [place] [address] [place] Creatinine and Glomerular filtration rate.predicted panel (S/P/Bld) 42 mL/min/1.73m??? Low >=60 [facility] Comment on above: Order Comment: Speci men Type: SWAB Ordering Facility: [facility] Address: [address] [place] [address] Result Comment: Yvette mated Glomerular Filtration Rate (eGFR) is calculated using the 2020 CKD-EPI creatinine equation. This equation utilizes serum creatinine, sex, and age as parameters. The creatinine assay has traceable calibration to isotope dilution-mass spectrometry. Refer to KDIGO guidelines for clinical interpretation. In patients with unstable renal function, e.g. those with acute kidney injury, the eGFR may not accurately reflect actual GFR. Performed By: #### S APCR #### [facility] CLIA [id number] [address] [place] [address] [place] Glucose [Mass/Vol] 188 mg/dL High 74-99 [facility] Comment on above: Order Comment: Davidi men Type: SWAB Ordering Facility: [facility] Address: [address] [place] [address] Result Comment: The [place] [employer] (ADA) provides guidance for cutoff values for fasting glucose and random glucose. The ADA defines fasting as no caloric intake for at least 8 hours. Fasting plasma glucose results between 100 to 125 mg/dL indicate increased risk for diabetes (prediabetes). Fasting plasma glucose results greater than or equal to 126 mg/dL meet the criteria for diagnosis of diabetes. In the absence of unequivocal hyperglycemia, results should be confirmed by repeat testing. In a patient with classic symptoms of hyperglycemia or hyperglycemic crisis, random plasma glucose results greater than or equal to 200 mg/dL meet the criteria for diagnosis of diabetes. Reference: Standards of Medical Care in Diabetes 2016, [place] [employer]. Diabetes Care. 2016.39(Suppl 1). Performed By: #### S APCR #### [facility] CLIA [id number] [address] [place] [address] [place] Potassium [Moles/Vol] 4.2 mmol/L Normal 3.7-5.1 [facility] Comment on above: Order Comment: Speci men Type: SWAB Ordering Facility: [facility] Address: [address] [place] [address] Performed By: #### S APCR #### [facility] CLIA [id number] [address] [place] [address] [place] Protein [Mass/Vol] 6.8 g/dL Normal 6.3-8.0 [facility] Comment on above: Order Comment: Speci men Type: SWAB Ordering Facility: [facility] Address: [address] [place] [address] Performed By: #### S APCR #### [facility] CLIA [id number] [address] [place] [address] [place] Sodium [Moles/Vol] 138 mmol/L Normal 136-144 [facility] Comment on above: Order Comment: Speci men Type: SWAB Ordering Facility: [facility] Address: [address] [place] [address] Performed By: #### S APCR #### [facility] CLIA [id number] [address] [place] [address] [place] Urea nitrogen [Mass/Vol] 23 mg/dL Normal 9-24 [facility] Comment on above: Order Comment: Speci men Type: SWAB Ordering Facility: [facility] Address: [address] [place] [address] Performed By: #### S APCR #### [facility] CLIA [id number] [address] [place] [address] [place] ECG COMPLETEon 03-03-2024 ECG COMPLETE Ventricular Rate : 1 11 BPM Atrial Rate : 111 BPM P-R Interval : 172 ms QRS Duration : 90 ms Q-T Interval : 332 ms QTC Calculation(Bazett) : 451 ms Calculated P Noel : 144 degrees Calculated R Noel : -20 degrees Calculated T Noel : 130 degrees UNUSUAL P AXIS, POSSIBLE ECTOPIC ATRIAL TACHYCARDIA NONSPECIFIC T WAVE ABNORMALITY ABNORMAL ECG Confirmed by MIYA MIX MD ([id number]) on 03/19/2024 8:59:28 AM NAME : JASON MOORE PID : [id number] : 1970 Gender : Male Race : ORD : [id number] Procedure Date : Mar 03 2024 12:20:53 Edit Date : Mar 19 2024 08:59:29 Diagnosis: UNUSUAL P AXIS, POSSIBLE ECTOPIC ATRIAL TACHYCARDIA NONSPECIFIC T WAVE ABNORMALITY ABNORMAL ECG Confirmed by MIYA MIX MD ([id number]) on 03/19/2024 8:59:28 AM Test Reason : Post-OP Location : 542 : [id number] Overread By : MIYA MIX MD Edited By : MIYA MIX MD Referred By : , Acquired by : Sari prado [facility] Gas and Carbon monoxide pane l (BldV)on 03-03-2024 BASE DEFICIT, VENOUS -12 mmol/L Low -2-0 [facility] Comment on above: Order Comment: Speci men Type: SWAB Ordering Facility: [facility] Address: [address] [place] [address] Performed By: #### S APCR #### [facility] CLIA [id number] [address] [place] [address] [place] Body temperature 98.6 [degF] Normal [facility] Comment on above: Order Comment: Speci men Type: SWAB Ordering Facility: [facility] Address: [address] [place] [address] Performed By: #### S APCR #### [facility] CLIA [id number] [address] [place] [address] [place] Calcium.ionized (Bld) [Mass/Vol] 1.26 mmol/L Normal 1.08-1.30 [facility] Comment on above: Order Comment: Speci men Type: SWAB Ordering Facility: [facility] Address: [address] [place] [address] Performed By: #### S APCR #### [facility] CLIA [id number] [address] [place] [address] [place] Calcium.ionized adjusted to pH 7.4 (BldA) [Moles/Vol] Normal [facility] Comment on above: Order Comment: Speci men Type: SWAB Ordering Facility: [facility] Address: [address] [place] [address] Result Comment: Susie ured pH is <7.20. Unable to report normalized Calcium. Performed By: #### S APCR #### [facility] CLIA [id number] [address] [place] [address] [place] Carboxyhemoglobin (BldV) [Mass fraction] 0.8 % Normal 0.0-2.0 [facility] Comment on above: Order Comment: Speci men Type: SWAB Ordering Facility: [facility] Address: [address] [place] [address] Result Comment: Carb oxyhemoglobin Reference Range for Smokers: 2.0-8.0% Performed By: #### S APCR #### [facility] CLIA [id number] [address] [place] [address] [place] CO2 (BldV) [Partial pressure] 54 mm[Hg] Normal 42-55 [facility] Comment on above: Order Comment: Speci men Type: SWAB Ordering Facility: [facility] Address: [address] [place] [address] Performed By: #### S APCR #### [facility] CLIA [id number] [address] [place] [address] [place] COMMENTS Critical Value: ph Normal [facility] Comment on above: Order Comment: Speci men Type: SWAB Ordering Facility: [facility] Address: [address] [place] [address] Performed By: #### S APCR #### [facility] CLIA [id number] [address] [place] [address] [place] DATE/TIME NOTIFIED [id number] PM Normal [facility] Comment on above: Order Comment: Speci men Type: SWAB Ordering Facility: [facility] Address: [address] [place] [address] Performed By: #### S APCR #### [facility] CLIA [id number] [address] [place] [address] [place] FIO2 60 % Normal [facility] Comment on above: Order Comment: Speci men Type: SWAB Ordering Facility: [facility] Address: [address] [place] [address] Performed By: #### S APCR #### [facility] CLIA [id number] [address] [place] [address] [place] Glucose [Mass/Vol] 190 mg/dL High 60-105 [facility] Comment on above: Order Comment: Speci men Type: SWAB Ordering Facility: [facility] Address: [address] [place] [address] Performed By: #### S APCR #### [facility] CLIA [id number] [address] [place] [address] [place] HCO3 (Bld) [Moles/Vol] 17 mmol/L Low 24-28 [facility] Comment on above: Order Comment: Speci men Type: SWAB Ordering Facility: [facility] Address: [address] [place] [address] Performed By: #### S APCR #### [facility] CLIA [id number] [address] [place] [address] [place] Hematocrit (Bld) [Volume fraction] 40.4 % Normal 39.0-51.0 [facility] Comment on above: Order Comment: Speci men Type: SWAB Ordering Facility: [facility] Address: [address] [place] [address] Performed By: #### S APCR #### [facility] CLIA [id number] [address] [place] [address] [place] Hemoglobin (Bld) [Mass/Vol] 13.2 g/dL Normal 13.0-17.0 [facility] Comment on above: Order Comment: Speci men Type: SWAB Ordering Facility: [facility] Address: [address] [place] [address] Performed By: #### S APCR #### [facility] CLIA [id number] [address] [place] [address] [place] Lactate [Moles/Vol] 7.2 mmol/L High 0.5-2.2 [facility] Comment on above: Order Comment: Speci men Type: SWAB Ordering Facility: [facility] Address: [address] [place] [address] Performed By: #### S APCR #### [facility] CLIA [id number] [address] [place] [address] [place] Methemoglobin (Bld) [Mass fraction] 0.6 % Normal 0.0-1.5 [facility] Comment on above: Order Comment: Speci men Type: SWAB Ordering Facility: [facility] Address: [address] [place] [address] Performed By: #### S APCR #### [facility] CLIA [id number] [address] [place] [address] [place] NOTIFIED WHOM Ferdinand STILL RN G53 Karina ROJAS Normal [facility] Comment on above: Order Comment: Speci men Type: SWAB Ordering Facility: [facility] Address: [address] [place] [address] Performed By: #### S APCR #### [facility] CLIA [id number] [address] [place] [address] [place] O2 THERAPY Ventilator Normal [facility] Comment on above: Order Comment: Speci men Type: SWAB Ordering Facility: [facility] Address: [address] [place] [address] Performed By: #### S APCR #### [facility] CLIA [id number] [address] [place] [address] [place] Oxygen (BldV) [Partial pressure] 69 mm[Hg] High 35-45 [facility] Comment on above: Order Comment: Speci men Type: SWAB Ordering Facility: [facility] Address: [address] [place] [address] Performed By: #### S APCR #### [facility] CLIA [id number] [address] [place] [address] [place] Oxygen saturation in Venous blood 84 % Normal 60-85 [facility] Comment on above: Order Comment: Speci men Type: SWAB Ordering Facility: [facility] Address: [address] [place] [address] Performed By: #### S APCR #### [facility] CLIA [id number] [address] [place] [address] [place] Oxyhemoglobin (BldV) [Mass fraction] 83 % Normal 60-85 [facility] Comment on above: Order Comment: Speci men Type: SWAB Ordering Facility: [facility] Address: [address] [place] [address] Performed By: #### S APCR #### [facility] CLIA [id number] [address] [place] [address] [place] pH (BldV) 7.13 [pH] Critically low 7.32-7.42 [facility] Comment on above: Order Comment: Speci men Type: SWAB Ordering Facility: [facility] Address: [address] [place] [address] Performed By: #### S APCR #### [facility] CLIA [id number] [address] [place] [address] [place] Potassium [Moles/Vol] 4.3 mmol/L Normal 3.5-5.0 [facility] Comment on above: Order Comment: Speci men Type: SWAB Ordering Facility: [facility] Address: [address] [place] [address] Performed By: #### S APCR #### [facility] CLIA [id number] [address] [place] [address] [place] SET VENTILATOR RESPIRATORY RATE (BPM) 22 BPM Normal [facility] Comment on above: Order Comment: Speci men Type: SWAB Ordering Facility: [facility] Address: [address] [place] [address] Performed By: #### S APCR #### [facility] CLIA [id number] [address] [place] [address] [place] Sodium [Moles/Vol] 137 mmol/L Normal 136-144 [facility] Comment on above: Order Comment: Speci men Type: SWAB Ordering Facility: [facility] Address: [address] [place] [address] Performed By: #### S APCR #### [facility] CLIA [id number] [address] [place] [address] [place] HIGH SENSITIVITY TROPONIN To n 03-03-2024 Troponin T.cardiac High sensitivity method [Mass/Vol] 18 ng/L High <12 [facility] Comment on above: Order Comment: Speci men Type: SWAB Ordering Facility: [facility] Address: [address] [place] [address] Performed By: #### S APCR #### [facility] CLIA [id number] [address] [place] [address] [place] Troponin T.cardiac High sensitivity method [Mass/Vol] 22 ng/L High <12 [facility] Comment on above: Order Comment: Speci men Type: BLOOD SPECIMEN Ordering Facility: [facility] Address: [address] [place] [address] Performed By: #### H STNT #### [facility] CLIA [id number] [address] [place] [address] [place] Magnesium SerPl-mCncon 03-03 Magnesium [Mass/Vol] 1.7 mg/dL Normal 1.7-2.3 [facility] Comment on above: Order Comment: Speci men Type: SWAB Ordering Facility: [facility] Address: [address] [place] [address] Performed By: #### S APCR #### [facility] CLIA [id number] [address] [place] [address] [place] NT-proBNP SerPl-mCncon 03-03 Natriuretic peptide.B prohormone N-Terminal [Mass/Vol] <36 Normal <125 [facility] Comment on above: Order Comment: Speci men Type: ARTERIAL BLOOD SPECIMEN Ordering Facility: [facility] Address: [address] [place] [address] Performed By: #### A LLMG #### [facility] CLIA [id number] [address] [place] [address] [place] OPERATIVE NOon 03-03-2024 OPERATIVE NO HNO ID: [id number] Author: PELON GREENFIELD MD Service: Neurosurgery Author Type: Physician Type: Operative Report Filed: 03/08/2024 16:24 Note Text: [facility] - Operative Report [address] [place] [address] [place] JASON MOORE : 1970 AGE: 53. SEX: M PATIENT TYPE: I HOSP SV: [facility] LOCATION: [id number] ATTENDING PHYSICIAN: Pelon Greenfield M.D. CSN NUMBER: [id number] DATE OF SURGERY/PROCEDURE: 03/03/2024 INCISION/PROCEDURE START TIME: 8:56 a.m. INCISION CLOSE/PROCEDURE END TIME: 10:16 a.m. PREOPERATIVE DIAGNOSIS: Cervical radiculopathy C6 and C7, right with possible nonunion. POSTOPERATIVE DIAGNOSIS: Right C6 and C7 radiculopathy. SURGEON: Pelon Greenfield M.D. ROUTE JUMPER: Dory Gaffney M.D., resident. I did the surgery with Dr. Gaffney as my airplane first officer. SURGERY/PROCEDURE: 1. Right C5-6 and C6-7 posterior foraminotomy with the use of operating microscope. 2. Exploration of fusion. ANESTHESIA: General. COMPLICATIONS: None. DESCRIPTION OF PROCEDURE: The patient was taken to the operating room, where a team huddle was performed. He was intubated without difficulty and then cranial tongs were applied. He was very carefully transferred into the prone position and secured on the operative table. The posterior neck was then prepped and draped in usual sterile fashion and an x-ray was taken with a spinal needle in place to help guide the approach. At this point, we then in a subperiosteal manner exposed the C5 to C7 levels in a very meticulous manner. Deep retractors were placed. I then placed a clamp on what I believed to be C5 and then a Highland #4 into the C5-6 facet joint. An x-ray was taken and the staff radiologist called into the room and confirmed that we were at the appropriate levels. I then marked the C5 spinous process on the right side with a blue marking pen as well as a high-speed bur on to the C6 lamina communicated with the team in the room that we were at the appropriate levels and demonstrated to my personnel security assistant the precise levels to be operated upon.. At this point, I then applied a Lorene clamps to C5 and C6, distracted, but there was no motion between the facet joints. I did the same thing between C6 and C7 and there was no motion between the facet joint indicating that this was a solid fusion. Therefore, there was no need for additional fusion. At this point, a microscope was brought in the field and then in an uncomplicated manner, a right C5-6 laminal foraminotomy using my standard L-type technique out to the pedicle of C6 was performed without difficulty under high-power magnification. At no time was there any pressure placed on the neural elements. We then directed our attention to the C6-7 level, at which time an uncomplicated laminoforaminotomy using my standard L-type technique was performed out to the pedicle of C7 without difficulty. There was a very nice decompression of both the C6 and C7 nerve roots was placed. Hemostasis was excellent. There was no leakage of CSF. At no time was there any pressure or traction placed upon the neural elements at either level. We then removed deep retractors and inspected all soft tissues. There was hemostasis at this point was excellent. We then irrigated one more time, placed vancomycin powder and then closed in a layered fashion. All sponge and instrument counts were correct. We then transferred the patient into the supine position. This was the termination of surgery. Pelon Greenfield M.D. TM:[id number] /[id number] Normal [facility] PT panel Coag (PPP)on 2023 INR Coag (PPP) [Relative time] 1.1 {INR} Normal 0.9-1.3 [facility] Comment on above: Order Comment: Speci men Type: ARTERIAL BLOOD SPECIMEN Ordering Facility: [facility] Address: [address] [place] [address] Result Comment: Kimberly min K Antagonist (VKA) Therapeutic Range: INR 2 to 3 (Target INR of 2.5) Note: For patients treated with VKA drugs, such as warfarin, the [employer] 2012 Guideline recommends a therapeutic INR range of 2 to 3 (target INR of 2.5). This recommendation includes high-risk patients with antiphospholipid syndrome with previous arterial or venous thromboembolism, current-generation mechanical or bioprosthetic aortic heart valve replacement. Note: Patients with mechanical aortic valve replacement and additional risk factors for thromboembolic events (atrial fibrillation, previous thromboembolism, LV dysfunction, hypercoagulable conditions) or an older generation mechanical AVR (i.e., ball in-Cage) or any mechanical MVR should have a INR therapeutic range of 2.5 to 3.5 (target INR of 3). Bob GH, et al. Chest 2012, 141:7S-47S Annetta RA et al. [facility] 2017, 70: 252-289 Performed By: #### A [facility] #### [facility] CLIA [id number] [address] [place] [address] OF [facility] PT Coag (PPP) [Time] 11.4 s Normal 9.7-13.0 [facility] Comment on above: Order Comment: Speci men Type: ARTERIAL BLOOD SPECIMEN Ordering Facility: [facility] Address: [address] [place] [address] Performed By: #### A LLMG #### [facility] CLIA [id number] [address] [place] [address] [place] Phosphate SerPl-mCncon 03-03 Phosphate [Mass/Vol] 5.1 mg/dL High 2.7-4.8 [facility] Comment on above: Order Comment: Speci men Type: SWAB Ordering Facility: [facility] Address: [address] [place] [address] Performed By: #### S APCR #### [facility] CLIA [id number] [address] [place] [address] [place] STAPHYLOCOCCUS AUREUS AND MR SA SCREEN, PCR, NASALon 03-03-2024 S. aureus and MRSA panel REINALDO+probe (Nose) Not detected Normal Not Detected [facility] Comment on above: Order Comment: Speci men Type: SWAB Ordering Facility: [facility] Address: [address] [place] [address] Performed By: #### S APCR #### [facility] CLIA [id number] [address] [place] [address] [place] TYPE + SCREENon 03-03-2024 ABO B Normal [facility] Comment on above: Order Comment: Speci men Type: BLOOD SPECIMENOrdering Facility: [facility] Address: [address] [place] [address] Performed By: #### T SCR ####[facility] B[facility] BANKCLIA [id number] [place] [address] [place] HISTORICAL AB SCR STATUS Negative Normal [facility] Comment on above: Order Comment: Speci men Type: BLOOD SPECIMENOrdering Facility: [facility] Address: [address] [place] [address] Performed By: #### T SCR ####[facility] BANKCLIA [id number] [address] Rh Nom (Bld) Positive Normal [facility] Comment on above: Order Comment: Speci men Type: BLOOD SPECIMENOrdering Facility: [facility] Address: [address] [place] [address] Performed By: #### T SCR ####[facility] BANKCLIA [id number] [address] [place] TYPE AND SCREEN EXPIRATION 03/06/2024 23:59 Normal [facility] Comment on above: Order Comment: Speci men Type: BLOOD SPECIMENOrdering Facility: [facility] Address: [address] [place] [address] Performed By: #### T SCR ####[facility] BANKCLIA [id number] [address] OF [place] XR CHEST 1V FRONTAL PORTon 0 03-03-2024 XR CHEST 1V FRONTAL PORT * * *Final Report* * * DATE OF EXAM: Mar 03 2024 2:49PM JANES [id number] - XR CHEST 1V FRONTAL PORT / PROCEDURE REASON: Evaluate tube, line, or lead position * * * * Physician Interpretation * * * * EXAMINATION: CHEST RADIOGRAPH (PORTABLE SINGLE VIEW AP) Exam Date/Time: 03/03/2024 2:49 PM Clinical History: Evaluate tube, line, or lead position MQ: [id number] Comparison: None RESULT: Lines, tubes, and devices: ET tube is satisfactory . Right IJ catheter terminates in the proximal SVC. Lungs and pleura: Lungs are hypoinflated with partial atelectasis at bases. Superimposed infiltrates/infection or edema cannot be entirely excluded. Right hemidiaphragm is mildly elevated. Trace pleural effusions or pleural thickening are present. Cardiomediastinal silhouette: Heart is enlarged. Thoracic aorta is tortuous. Pulmonary vascular redistribution could be secondary to positioning or mild PVH. Other: . IMPRESSION: See result. [employer] Supervisor: LAURENT Transcribe Date/Time: Mar 03 2024 3:21P Dictated by : HUGO SEE MD This examination was interpreted and the report reviewed and electronically signed by: HUGO SEE MD on Mar 03 2024 3:22PM EST [id number] Normal [facility] XR VERIFY LEVEL [id number] 03-03-2024 XR VERIFY LEVEL C-SPINE-NB * * *Final Report* * * DATE OF EXAM: Mar 03 2024 9:14AM ESX [id number] - XR VERIFY LEVEL C-SPINE-NB / PROCEDURE REASON: 24 - localization * * * * Physician Interpretation * * * * INTRAOPERATIVE RADIOGRAPH(S) FOR SPINE LEVEL LOCALIZATION EXAMINATION: XR VERIFY LEVEL C-SPINE-NB HISTORY: 24 - localization. TECHNIQUE: XR VERIFY LEVEL C-SPINE-NB Intraoperative radiologist-surgeon verbal discussion with live image presentation was performed to confirm level of spine localization. COMPARISON: RESULT: Counting reference: Craniocervical junction. Anatomic Variants: None. Surgical instrument seen at the posterior C5-6 level with clamp on the C5 spinous process. IMPRESSION: Intraoperative spine level localization. CRITICAL TEST/RESULTS: Communicated with PELON GREENFIELD on 03/03/2024 9:16 AM. [employer]ach[employer] Supervisor: PSCB Transcribe Date/Time: Mar 03 2024 9:16A Dictated by : ABIODUN NGO MD This examination was interpreted and the report reviewed and electronically signed by: ABIODUN NGO MD on Mar 03 2024 9:20AM EST [id number] CRITICAL!! Invalid Interpretation Code [facility] JASON MOORE ([id number]) 1970 M Date Time Provider Department 02/23/24 [facility] During your visit today, we recorded the following information about you: Colton Rosario MD 02/23/2024 9:01 PM Signed Let patient know lipid panel showed Trigs elevated at 354 (goal<150 and was 652) HDL ok at 45 and LDL elevated at 196 (goal<130). With the liver concerns we definitely need to start a statin. I would like to put him on Crestor 10 mg a day to start. If ok I will send in a script and place orders for a lipid panel and LFT's to be done in 4 months. Prostate lab was good. His parathyroid level is ok. The calcium is improved but still elevated. This maybe due to his water pill, Hydrochlorothiazide. I would like to stop this and put him on aldactone 25 mg a day. If ok will send in a scrip. I would want a repeat calcium panel in a month and order would be placed. Jennifer Plaza MA 02/24/2024 12:09 PM Signed Left message for return call. DANIELLE Flores Laurie Lynn, LPN 02/25/2024 10:14 AM Signed Left a message for pt to call the office and ask to speak to a nurse. CINTHIA Peguero Stephanie, RN 02/25/2024 12:26 PM Signed Patient notified of results and provider's instructions. Patient verbalizes understanding. Patient will to start both medications and stop hydrochlorothiazide. Please place orders for medications and labs. ERASTO Holden Jeffrey A, MD 02/25/2024 12:41 PM Signed The following approved medication requests have been transmitted electronically. Requested Prescriptions Signed Prescriptions Disp Refills rosuvastatin (CRESTOR) 10 mg tablet 30 tablet 5 Sig: Take 1 tablet by mouth daily at bedtime. Authorizing Provider: COLTON ROSARIO spironolactone (ALDACTONE) 25 mg tablet 30 tablet 5 Sig: Take 1 tablet by mouth once daily. Authorizing Provider: COLTON ROSARIO MD Allergies As of Date: 02/23/2024 Noted Allergy Reaction ATIVAN (LORAZEPAM) 06/10/2016 8 - GI Upset PAXIL (PAROXETINE HCL) 12/25/2015 8 - GI Upset Comments: diarrhea ZOLOFT (SERTRALINE) 06/10/2016 8 - GI Upset Date Reviewed: 02/21/2024 Reviewed by: Colton Rosario MD - Fully Assessed Reason for Visit: Results [95] Primary Visit Diagnosis:Mixed hyperlipidemia [E78.2] Other Visit Diagnoses:Metabolic dysfunction-associated steatohepatitis (MASH) [K75.81] Hypertension, essential [I10] Hypercalcemia [E83.52] Order(s):rosuvastatin (CRESTOR) 10 mg tabletTake 1 tablet by mouth daily at bedtime.Disp: 30 tabletRfl: 5 HEPATIC FUNCTION PNL [SQHFP] Order #: [id number] FUTURE LIPID PANEL, NONFASTING [SQLIPNF] Order #: [id number] FUTURE spironolactone (ALDACTONE) 25 mg tabletTake 1 tablet by mouth once daily.Disp: 30 tabletRfl: 5 BASIC METABOLIC PANEL [SQBMP] Order #: [id number] FUTURE Prescriptions as of 02/25/2024 - rosuvastatin (CRESTOR) 10 mg tablet Take 1 tablet by mouth daily at bedtime. - spironolactone (ALDACTONE) 25 mg tablet Take 1 tablet by mouth once daily. - sildenafil (VIAGRA) 100 mg tablet Take 1 tablet by mouth once daily as needed. Take 30-60 minutes before sexual activity. - amLODIPine (NORVASC) 10 mg tablet Take 1 tablet by mouth once daily. - lisinopril (ZESTRIL) 40 mg tablet Take 1 tablet by mouth once daily. - gabapentin (NEURONTIN) 300 mg capsule Take 1 capsule by mouth daily at bedtime. For 3 days and then one twice a day for three days and then one three times a day as tolerated. Medication notes this encounter HYDROCHLOROTHIAZIDE 25 MG TABLET >> Colton Rosario MD 02/25/2024 12:41 PM hypercalcemia Problem List As Of Date 02/23/2024 Noted Resolved Left-sided low back pain without sciatica [M54.*07/03/2011 Hypertension, essential [I10] 06/28/2014 Palpitations [R00.2] 06/28/2014 01/22/2023 Mixed hyperlipidemia [E78.2] 06/28/2014 Well adult exam [Z00.00] 06/28/2014 Neurofibroma [D36.10] 08/13/2014 Family history of colon cancer [Z80.0] 09/28/2014 Agoraphobia [F40.00] 01/24/2015 Situational anxiety [F41.8] 01/24/2015 Fatty liver [K76.0] 03/28/2016 02/21/2024 Metabolic dysfunction-associated steatohepatiti*03/28/2016 Chronic bilateral low back pain without sciatic*06/10/2016 Prostate cancer screening [Z12.5] 07/10/2016 Smoker [F17.200] 07/10/2016 Alcohol use [Z78.9] 07/10/2016 01/22/2023 Cervical radiculopathy [M54.12] 12/16/2020 01/22/2023 Acute pain of right shoulder [M25.511] 12/18/2020 03/28/2021 Spinal stenosis of cervical region [M48.02] 03/26/2021 Tachycardia, unspecified [R00.0] 01/22/2023 JOSELITO (obstructive sleep apnea) [G47.33] H/O cervical spine surgery [Z98.890] 06/17/2021 LVH (left ventricular hypertrophy) [I51.7] 11/05/2022 ED (erectile dysfunction) of organic origin [N5*11/05/2022 DDD (degenerative disc disease), lumbar [M51.36] (more content not included)... Normal [facility] CNOVon 02-21-2024 CNOV Office Visit ([facility] ) -- JASON MOORE CLAYTON ([id number]) 1970 M Date Time Provider Department 02/21/24 10:00 AM COLTON ROSARIO [facility] During your visit today, we recorded the following information about you: Pulse Respiration Blood pressure Weight 82/minute 18/minute 122/70 127 kg Colton Rosario MD 02/21/2024 3:52 PM Signed Chief Complaint Patient presents with: Physical HPI Jason Sadiasolis sOcar is a 53 year old male who presents here today for Physical/pre op. PMHx: HTN, high cholesterol, impaired fasting glucose, obesity, tobacco use and alcohol use. Procedure: ARTHRODESIS CERVICAL POSTERIOR, BELOW C2 1ST SINGLE LEVEL with Surgeon Dr. Pelon Greenfield on 03/03/2024 No new issues or concerns. Patient can walk a flight of stairs and push a piece of furniture without chest pain. Past medical history, appointments, medications, allergies reviewed. Previous Medical History PAST MEDICAL HISTORY Diagnosis Date Abnormal echocardiogram 02/16/2024 Alcohol use 07/10/2016 3-5 day Back pain Cervical radiculopathy 12/16/2020 Fatty liver 03/28/2016 Former smoker 02/16/2024 Heart rate fast on BB Hypertension Hypertension, essential 06/28/2014 LVH (left ventricular hypertrophy) 11/05/2022 With grade 1 Solomon dysfunction. Mixed hyperlipidemia 06/28/2014 Morbid obesity (HCC) 02/16/2024 Obesity, Class II, BMI 35-39.9 12/16/2020 JOSELITO (obstructive sleep apnea) resolved with weight loss Spinal stenosis in cervical region Tachycardia, unspecified on BB Previous Surgical History PAST SURGICAL HISTORY Procedure Laterality Date ALLOGRAFT FOR SPINE SURGERY ONLY STRUCTURAL 08/30/2011 FUSION AND REPLACED DISC lumbar ANTERIOR INSTRUMENTATION 2-3 VERTEBRAL SEGMENTS APPL-INTERVERTEBRAL BIOMECHANICAL DEVICES COLONOSCOPY FLX DX W/COLLJ SPEC WHEN PFRMD 09/28/2014 Colonoscopy, repeat 5 yrs PAST SURGICAL HISTORY OF back injections and disc biopsy PAST SURGICAL HISTORY OF 06/17/2021 C5-C6, C6-C7 anterior cervical discectomy and fusion, Insertion of intervertebral interbody device at C5-C6, C6-C7, anterior spinal instrumentation C5-C7, Use of structural allograft Family History FAMILY HISTORY Problem Relation Age of Onset Colon Cancer Father 50 Diabetes Father Hypertension Father Prostate Cancer Father 54 Colon Cancer Paternal Grandfather Diabetes Paternal Grandfather Prostate Cancer Paternal Grandfather 50'S Hypertension Paternal Grandmother Coronary Artery Disease Maternal Aunt Hypertension Maternal Aunt Hypertension Maternal Aunt Diabetes Paternal Aunt Hypertension Paternal Aunt Colon Cancer Paternal Uncle LATE 50'S Diabetes Paternal Uncle Hypertension Paternal Uncle Prostate Cancer Paternal Uncle 50'S Anesthesia Problems No Family History Patient Allergies ALLERGIES Allergen Reactions Ativan [Lorazepam] GI Upset Paxil [Paroxetine H* GI Upset diarrhea Zoloft [Sertraline] GI Upset Current Medications Current Outpatient Medications on File Prior to Visit Medication Sig varenicline (CHANTIX STARTING MONTH BOX) 0.5 mg (11)- 1 mg (42) tablet Take 0.5 mg by mouth once daily on Days 1 through 3, THEN 0.5 mg twice daily on Days 4 through 7, THEN 1 mg twice daily on Day 8 and thereafter varenicline (CHANTIX CONTINUING MONTH BOX) 1 mg tablet Take 1 tablet by mouth two times a day with meals. Start the month after the starter pack amLODIPine (NORVASC) 10 mg tablet Take 1 tablet by mouth once daily. lisinopril (ZESTRIL) 40 mg tablet Take 1 tablet by mouth once daily. hydroCHLOROthiazide 25 mg tablet Take 1 tablet by mouth once daily. gabapentin (NEURONTIN) 300 mg capsule Take 1 capsule by mouth daily at bedtime. For 3 days and then one twice a day for three days and then one three times a day as tolerated. Tadalafil (CIALIS) 20 mg tablet Take 1 tablet by mouth once daily. As needed. No current facility-administered medications on file prior to visit. Social History Social History Tobacco Use Smoking status: Former Packs/day: 0.50 Years: 21.00 Additional pack years: 0.00 Total pack years: 10.50 Types: Cigarettes Quit date: 01/14/2024 Years since quittin.1 Smokeless tobacco: Never Vaping Use Vaping Use: Never used Substance Use Topics Alcohol use: Yes Alcohol/week: 12.0 standard drinks of alcohol Types: 12 Cans of Beer (12oz) per week Comment: x 1 day ago, 2 cocktails and beer Drug use: Never Review of Symptoms REVIEW OF SYSTEMS GENERAL: No weight loss, malaise or fevers HEENT: Negative for frequent or significant headaches, No changes in hearing or vision, no nose bleeds or other nasal problems NECK: Negative for lumps, goiter, pain and significant neck swelling RESPIRATORY: Negative for cough, hemoptysis, wheezing, COPD, dyspnea or shortness of breath CARDIOVASCULAR: Negative for chest pain, leg swel (more content not included)... Normal [facility] Calcium SerPl-ncon 02-20- 024 Calcium [Mass/Vol] 10.6 mg/dL High 8.5-10.2 [facility] Comment on above: Order Comment: Speci men Type: ARTERIAL BLOOD SPECIMEN Ordering Facility: [facility] Address: [address] [place] [address] Performed By: #### A LLMG #### [facility] CLIA [id number] [address] [place] [address] [facility] [place] LIPID PANEL, NONFASTINGon Cholesterol [Mass/Vol] 312 mg/dL High <200 [facility] Comment on above: Order Comment: Davidi men Type: BLOOD SPECIMEN Ordering Facility: [facility] Address: [address] [place] [address] Result Comment: <200 mg/dL, Desirable 200-239 mg/dL, Borderline high >239 mg/dL, High Performed By: #### B HB #### [facility] CLIA [id number] [address] [place] [address] [place] HDL CHOLESTEROL, NF 45 mg/dL Normal >39 [facility] Comment on above: Order Comment: Althea men Type: BLOOD SPECIMEN Ordering Facility: [facility] Address: [address] [place] [address] Result Comment: 40-5 9 mg/dL, Acceptable >59 mg/dL, High: Negative risk factor for coronary heart disease <40 mg/dL, Low: Positive risk factor for coronary heart disease Performed By: #### B HB #### [facility] CLIA [id number] [address] [place] [address] [place] LDL CHOLESTEROL, NF 196 mg/dL High <100 [facility] Comment on above: Order Comment: Althea men Type: BLOOD SPECIMEN Ordering Facility: [facility] Address: [address] [place] [address] Result Comment: <100 mg/dL, Optimal 100-129 mg/dL, Near optimal/above optimal 130-159 mg/dL, Borderline high 160-189 mg/dL, High >189 mg/dL, Very high Secondary prevention optimal LDL Cholesterol levels are recommended to be < 70 mg/dL Performed By: #### B HB #### [facility] CLIA [id number] [address] [place] [address] [place] LDL/HDL RATIO, NF 4.36 mg/dL High <2.54 [facility] Comment on above: Order Comment: Althea romo Type: BLOOD SPECIMEN Ordering Facility: [facility] Address: [address] [place] [address] Result Comment: Sonny chan: 1. National Cholesterol Education Program ATP III Guideline At-A-Glance Quick Desk Reference: National Heart, Lung, and Blood Keeler. National Institutes of Health. 2001: NIH Publication No. 01-3305. 2. An International Atherosclerosis Society position paper: global recommendations for the management of dyslipidemia: executive summary, Atherosclerosis. 2014: 232(2):410-413. Performed By: #### B HB #### [facility] CLIA [id number] [address] [place] [address] [place] NON HDL CHOL, NF 267 mg/dL High <130 [facility] Comment on above: Order Comment: Althea romo Type: BLOOD SPECIMEN Ordering Facility: [facility] Address: [address] [place] [address] Result Comment: <130 mg/dL, Optimal 130-159 mg/dL, Near optimal/above optimal 160-189 mg/dL, Borderline high 190-219 mg/dL, High >219 mg/dL, Very high Secondary prevention optimal non HDL Cholesterol levels are recommended to be <100 mg/dL Performed By: #### B HB #### [facility] CLIA [id number] [address] [place] [address] [place] T CHOL/HDL RATIO NF 6.93 mg/dL High <5.10 [facility] Comment on above: Order Comment: Althea romo Type: BLOOD SPECIMEN Ordering Facility: [facility] Address: [address] [place] [address] Performed By: #### B HB #### [facility] CLIA [id number] [address] [place] [address] [place] TRIGLYCERIDES, NF 354 mg/dL High <150 [facility] Comment on above: Order Comment: Speci men Type: BLOOD SPECIMEN Ordering Facility: [facility] Address: [address] [place] [address] Result Comment: <150 mg/dL, Normal 150-199 mg/dL, Borderline high 200-499 mg/dL, High >499 mg/dL, Very high Performed By: #### B HB #### [facility] CLIA [id number] [address] [place] [address] [place] VLDL CHOLESTEROL, NF 71 mg/dL High <30 [facility] Comment on above: Order Comment: Speci men Type: BLOOD SPECIMEN Ordering Facility: [facility] Address: [address] [place] [address] Performed By: #### B HB #### [facility] CLIA [id number] [address] [place] [address] [place] PSA SerPl-ncon 02-21-2024 Prostate specific Ag [Mass/Vol] 0.87 ng/mL Normal <2.60 [facility] Comment on above: Order Comment: Speci men Type: BLOOD SPECIMENOrdering Facility: [facility] Address: [address] [place] [address] Result Comment: Tota l PSA test methodology used is the Electrochemiluminescence Immunoassay by [employer]. Total PSA values by differing methodologies cannot be interchanged. Performed By: #### 2 857-1 ####[facility] [id number] [place] [address] [place] PTH-Intact SerPl-mCncon - Parathyrin.intact [Mass/Vol] 61 pg/mL Normal 15-65 [facility] Comment on above: Order Comment: Speci men Type: BLOOD SPECIMEN Ordering Facility: [facility] Address: [address] [place] [address] Performed By: #### B HB #### [facility] CLIA [id number] [address] [place] [address] [place] CBC panel Auto (Bld)on 02-15 Erythrocyte distribution width (RBC) [Ratio] 12.0 % 11.5 - 15.0 % [facility] Hematocrit (Bld) [Volume fraction] 46.6 % 39.0 - 51.0 % [facility] Hemoglobin (Bld) [Mass/Vol] 15.9 g/dL 13.0 - 17.0 g/dL [facility] Interpretation and review of laboratory results Normal [facility] MCH (RBC) [Entitic mass] 33.5 pg 26.0 - 34.0 pg [facility] MCHC (RBC) [Mass/Vol] 34.1 g/dL 30.5 - 36.0 g/dL [facility] MCV (RBC) [Entitic vol] 98.1 fL 80.0 - 100.0 fL [facility] Nucleated RBC (Bld) [#/Vol] NINF [facility] Platelet mean volume (Bld) [Entitic vol] 10.5 fL 9.0 - 12.7 fL [facility] Platelets (Bld) [#/Vol] 282 10*3/uL [facility] RBC (Bld) [#/Vol] 4.75 10*6/uL 4.20 - 6.0 0 m/uL [facility] WBC (Bld) [#/Vol] 8.46 10*3/uL [facility] Erythrocyte distribution width (RBC) [Ratio] 12.0 % Normal 11.5-15.0 [facility] Comment on above: Order Comment: Speci men Type: ARTERIAL BLOOD SPECIMEN Ordering Facility: [facility] Address: [address] [place] [address] Performed By: #### A LLMG #### [facility] CLIA [id number] [address] [place] [address] [place] Hematocrit (Bld) [Volume fraction] 46.6 % Normal 39.0-51.0 [facility] Comment on above: Order Comment: Speci men Type: ARTERIAL BLOOD SPECIMEN Ordering Facility: [facility] Address: [address] [place] [address] Performed By: #### A LLMG #### [facility] CLIA [id number] [address] [place] [address] [place] Hemoglobin (Bld) [Mass/Vol] 15.9 g/dL Normal 13.0-17.0 [facility] Comment on above: Order Comment: Speci men Type: ARTERIAL BLOOD SPECIMEN Ordering Facility: [facility] Address: [address] [place] [address] Performed By: #### A LLMG #### [facility] CLIA [id number] [address] [place] [address] [place] MCH (RBC) [Entitic mass] 33.5 pg Normal 26.0-34.0 [facility] Comment on above: Order Comment: Speci men Type: ARTERIAL BLOOD SPECIMEN Ordering Facility: [facility] Address: [address] [place] [address] Performed By: #### A LLMG #### [facility] CLIA [id number] [address] [place] [address] [place] MCHC (RBC) [Mass/Vol] 34.1 g/dL Normal 30.5-36.0 [facility] Comment on above: Order Comment: Speci men Type: ARTERIAL BLOOD SPECIMEN Ordering Facility: [facility] Address: [address] [place] [address] Performed By: #### A LLMG #### [facility] CLIA [id number] [address] [place] [address] [place] MCV (RBC) [Entitic vol] 98.1 fL Normal 80.0-100.0 [facility] Comment on above: Order Comment: Speci men Type: ARTERIAL BLOOD SPECIMEN Ordering Facility: [facility] Address: [address] [place] [address] Performed By: #### A LLMG #### [facility] CLIA [id number] [address] [place] [address] [place] Nucleated RBC (Bld) [#/Vol] 10*3/uL Normal <0.01 [facility] Comment on above: Order Comment: Speci men Type: ARTERIAL BLOOD SPECIMEN Ordering Facility: [facility] Address: [address] [place] [address] Performed By: #### A LLMG #### [facility] CLIA [id number] [address] [place] [address] [place] Platelet mean volume (Bld) [Entitic vol] 10.5 fL Normal 9.0-12.7 [facility] Comment on above: Order Comment: Speci men Type: ARTERIAL BLOOD SPECIMEN Ordering Facility: [facility] Address: [address] [place] [address] Performed By: #### A LLMG #### [facility] CLIA [id number] [address] [place] [address] [place] Platelets (Bld) [#/Vol] 282 10*3/uL Normal 150-400 [facility] Comment on above: Order Comment: Speci men Type: ARTERIAL BLOOD SPECIMEN Ordering Facility: [facility] Address: [address] [place] [address] Performed By: #### A LLMG #### [facility] CLIA [id number] [address] [place] [address] [place] RBC (Bld) [#/Vol] 4.75 10*6/uL Normal 4.20-6.00 [facility] Comment on above: Order Comment: Speci men Type: ARTERIAL BLOOD SPECIMEN Ordering Facility: [facility] Address: [address] [place] [address] Performed By: #### A LLMG #### [facility] CLIA [id number] [address] [place] [address] [place] WBC (Bld) [#/Vol] 8.46 10*3/uL Normal 3.70-11.00 [facility] Comment on above: Order Comment: Speci men Type: ARTERIAL BLOOD SPECIMEN Ordering Facility: [facility] Address: [address] [place] [address] Performed By: #### A LLMG #### [facility] CLIA [id number] [address] [place] [address] OF [facility] CNOVon 02-16-2024 CNOV Office Visit ([facility] ) -- JASON MOORE ([id number]) 1970 M Date Time Provider Department 02/16/24 11:00 AM PELON GREENFIELD [facility] During your visit today, we recorded the following information about you: Pulse Respiration Blood pressure Weight 100/minute 17/minute 141/85 126.7 kg Height 1.765 m Pelon Greenfield MD 02/16/2024 12:02 PM Signed EST SURGERY/PROCEDURE DATE: 06/17/2021 SURGEON(S)/PROCEDURALIST(S ) AND ROUTE JUMPER(S): Surgeon(s) and Role: * Flip Gonzalez MD - Primary * Doyle Patel MD - Resident - Assistin SURGERY/PROCEDURE(S): C5-C6, C6-C7 anterior cervical discectomy and fusion, Insertion of intervertebral interbody device at C5-C6, C6-C7, anterior spinal instrumentation C5-C7, Use of structural allograft. INSTRUMENTATION: 6mm structural allograft at C5-C6, C6-C7 with a K2M anterior plate. Neck pain: no Weakness: Yes, RUE weakness Arm pain: yes, RIGHT arm, C6 and C7 distribution Arm numbness: yes, RIGHT arm, C6 and C7 distribution Imbalance: no Hand dexterity loss: no OBJECTIVE: PHYSICAL EXAM: BP 141/85 Pulse 100 Resp 17 Ht 5' 9.5 (1.77m) Wt 279 lb 4.8 oz (126.7kg) SpO2 95% BMI 40.67 kg/(m2). GENERAL APPEARANCE: Well nourished, well developed, and no apparent distress. NEURO PSYCH: Patient oriented to person, place, and time. Mood pleasant. Benign affect. MUSCULOSKELETAL VISUAL INSPECTION CERVICAL: WNL THORACIC: WNL LUMBAR: WNL MOTOR: 5/5 in all muscle groups. SENSORY: Normal sensory exam GAIT: Normal. REFLEXES: 1+ UE and absent LE HOFFMANS: no Babinski:no AP: RIGHT C6 and C7 radiculopathies due to foraminal stenosis secondary to subsidence; possible nonunion; neuro as above. Surgery offered; has stopped smoking Consent routed Pelon Greenfield MD Referring Provider: PELON GREENFIELD [[id number]] Allergies As of Date: 02/16/2024 Noted Allergy Reaction ATIVAN (LORAZEPAM) 06/10/2016 8 - GI Upset PAXIL (PAROXETINE HCL) 12/25/2015 8 - GI Upset Comments: diarrhea ZOLOFT (SERTRALINE) 06/10/2016 8 - GI Upset Date Reviewed: 02/16/2024 Reviewed by: Xu Rojas MA - Fully Assessed Reason for Visit: Pre-Op Exam [87] Primary Visit Diagnosis:Pseudoarthrosis of cervical spine, subsequent encounter [S12.9XXD] Other Visit Diagnosis:Radiculopathy, cervical region [M54.12] Prescriptions as of 02/16/2024 - varenicline (CHANTIX STARTING MONTH BOX) 0.5 mg (11)- 1 mg (42) tablet Take 0.5 mg by mouth once daily on Days 1 through 3, THEN 0.5 mg twice daily on Days 4 through 7, THEN 1 mg twice daily on Day 8 and thereafter - varenicline (CHANTIX CONTINUING MONTH BOX) 1 mg tablet Take 1 tablet by mouth two times a day with meals. Start the month after the starter pack - amLODIPine (NORVASC) 10 mg tablet Take 1 tablet by mouth once daily. - lisinopril (ZESTRIL) 40 mg tablet Take 1 tablet by mouth once daily. - hydroCHLOROthiazide 25 mg tablet Take 1 tablet by mouth once daily. - gabapentin (NEURONTIN) 300 mg capsule Take 1 capsule by mouth daily at bedtime. For 3 days and then one twice a day for three days and then one three times a day as tolerated. - Tadalafil (CIALIS) 20 mg tablet Take 1 tablet by mouth once daily. As needed. Problem List As Of Date 02/16/2024 Noted Resolved Left-sided low back pain without sciatica [M54.*07/03/2011 Hypertension, essential [I10] 06/28/2014 Palpitations [R00.2] 06/28/2014 01/22/2023 Mixed hyperlipidemia [E78.2] 06/28/2014 Well adult exam [Z00.00] 06/28/2014 Neurofibroma [D36.10] 08/13/2014 Family history of colon cancer [Z80.0] 09/28/2014 Agoraphobia [F40.00] 01/24/2015 Situational anxiety [F41.8] 01/24/2015 Fatty liver [K76.0] 03/28/2016 Elevated LFTs [R79.89] 03/28/2016 Chronic bilateral low back pain without sciatic*06/10/2016 Prostate cancer screening [Z12.5] 07/10/2016 Smoker [F17.200] 07/10/2016 Alcohol use [Z78.9] 07/10/2016 01/22/2023 Obesity, Class II, BMI 35-39.9 [E66.9] 12/16/2020 Cervical radiculopathy [M54.12] 12/16/2020 01/22/2023 Acute pain of right shoulder [M25.511] 12/18/2020 03/28/2021 ABDULAZIZ (generalized anxiety disorder) [F41.1] 03/17/2021 Spinal stenosis of cervical region [M48.02] 03/26/2021 Tachycardia, unspecified [R00.0] 01/22/2023 JOSELITO (obstructive sleep apnea) [G47.33] H/O cervical spine surgery [Z98.890] 06/17/2021 LVH (left ventricular hypertrophy) [I51.7] 11/05/2022 ED (erectile dysfunction) of organic origin [N5*11/05/2022 DDD (degenerative disc disease), lumbar [M51.36]05/17/2023 Mass of soft tissue of forearm [M79.89] 05/17/2023 Hand numbness [R20.0] 05/17/2023 Encounter Status:Closed by PELON GREENFIELD on 02/16/24 [facility] CNPTosha 02-16-2024 CNPN Telephone ([facility]) -- JASON MOORE ([id number]) 1970 M Date Time Provider Department 02/16/24 CLAUS HINTON [facility] During your visit today, we recorded the following information about you: Claus Hinton PA-C 02/16/2024 5:04 PM Signed Hello, I have sent 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 Dunn for clearance prior to upcoming procedure. Can you please call to make sure this fax was received, and assist in follow-up? Thank you. NACHO Arredondo Tiffany L 02/22/2024 10:27 AM Signed received and scanned into pt's chart Allergies As of Date: 02/16/2024 Noted Allergy Reaction ATIVAN (LORAZEPAM) 06/10/2016 8 - GI Upset PAXIL (PAROXETINE HCL) 12/25/2015 8 - GI Upset Comments: diarrhea ZOLOFT (SERTRALINE) 06/10/2016 8 - GI Upset Date Reviewed: 02/16/2024 Reviewed by: Claus Hinton PA-C - Fully Assessed Reason for Visit: Follow Up [171] Received Outside Medical Records [0851] Cmt: cardiology Prescriptions as of 02/22/2024 - sildenafil (VIAGRA) 100 mg tablet Take 1 tablet by mouth once daily as needed. Take 30-60 minutes before sexual activity. - amLODIPine (NORVASC) 10 mg tablet Take 1 tablet by mouth once daily. - lisinopril (ZESTRIL) 40 mg tablet Take 1 tablet by mouth once daily. - hydroCHLOROthiazide 25 mg tablet Take 1 tablet by mouth once daily. - gabapentin (NEURONTIN) 300 mg capsule Take 1 capsule by mouth daily at bedtime. For 3 days and then one twice a day for three days and then one three times a day as tolerated. Problem List As Of Date 02/16/2024 Noted Resolved Left-sided low back pain without sciatica [M54.*07/03/2011 Hypertension, essential [I10] 06/28/2014 Palpitations [R00.2] 06/28/2014 01/22/2023 Mixed hyperlipidemia [E78.2] 06/28/2014 Well adult exam [Z00.00] 06/28/2014 Neurofibroma [D36.10] 08/13/2014 Family history of colon cancer [Z80.0] 09/28/2014 Agoraphobia [F40.00] 01/24/2015 Situational anxiety [F41.8] 01/24/2015 Fatty liver [K76.0] 03/28/2016 Elevated LFTs [R79.89] 03/28/2016 Chronic bilateral low back pain without sciatic*06/10/2016 Prostate cancer screening [Z12.5] 07/10/2016 Smoker [F17.200] 07/10/2016 Alcohol use [Z78.9] 07/10/2016 01/22/2023 Obesity, Class II, BMI 35-39.9 [E66.9] 12/16/2020 Cervical radiculopathy [M54.12] 12/16/2020 01/22/2023 Acute pain of right shoulder [M25.511] 12/18/2020 03/28/2021 ABDULAZIZ (generalized anxiety disorder) [F41.1] 03/17/2021 Spinal stenosis of cervical region [M48.02] 03/26/2021 Tachycardia, unspecified [R00.0] 01/22/2023 JOSELITO (obstructive sleep apnea) [G47.33] H/O cervical spine surgery [Z98.890] 06/17/2021 LVH (left ventricular hypertrophy) [I51.7] 11/05/2022 ED (erectile dysfunction) of organic origin [N5*11/05/2022 DDD (degenerative disc disease), lumbar [M51.36]05/17/2023 Mass of soft tissue of forearm [M79.89] 05/17/2023 Hand numbness [R20.0] 05/17/2023 Former smoker [Z87.891] 02/16/2024 Morbid obesity (HCC) [E66.01] 02/16/2024 Abnormal echocardiogram [R93.1] 02/16/2024 Encounter Status:Closed by ROSE LEVINE on 02/22/24 Normal [facility] metabolic 2000 panelon 02-16-2024 Albumin [Mass/Vol] 4.4 g/dL 3.9 - 4.9 g/dL [facility] ALP [Catalytic activity/Vol] 93 U/L 38 - 113 U/L [facility] ALT [Catalytic activity/Vol] 92 U/L High 10 - 54 U/L [facility] Anion gap [Moles/Vol] 12 mmol/L 8 - 15 mmol/L [facility] AST [Catalytic activity/Vol] 83 U/L High 14 - 40 U/L [facility] Bilirubin [Mass/Vol] 0.9 mg/dL 0.2 - 1 .3 mg/dL [facility] Calcium [Mass/Vol] 10.9 mg/dL High 8.5 - 10. 2 mg/dL [facility] Chloride [Moles/Vol] 99 mmol/L 98 - 10 7 mmol/L [facility] CO2 [Moles/Vol] 23 mmol/L 22 - 30 mmol/L [facility] Creatinine [Mass/Vol] 1.36 mg/dL High 0.73 - 1.22 mg/dL [facility] GFR/1.73 sq M.predicted among non-blacks MDRD (S/P/Bld) [Vol rate/Area] 63 mL/min/{1.73_m2} - PINF [facility] Comment on above: Estimated Glomerular Filtration Rate (eGFR) is calculated using the 2020 CKD-EPI creatinine equation. This equation utilizes serum creatinine, sex, and age as parameters. The creatinine assay has traceable calibration to isotope dilution-mass spectrometry. Refer to KDIGO guidelines for clinical interpretation. In patients with unstable renal function, e.g. those with acute kidney injury, the eGFR may not accurately reflect actual GFR. Glucose [Mass/Vol] 104 mg/dL High 74 - 99 mg/dL [facility] Comment on above: The [place] Diab[employer] s Association (ADA) provides guidance for cutoff values for fasting glucose and random glucose. The ADA defines fasting as no caloric intake for at least 8 hours. Fasting plasma glucose results between 100 to 125 mg/dL indicate increased risk for diabetes (prediabetes). Fasting plasma glucose results greater than or equal to 126 mg/dL meet the criteria for diagnosis of diabetes. In the absence of unequivocal hyperglycemia, results should be confirmed by repeat testing. In a patient with classic symptoms of hyperglycemia or hyperglycemic crisis, random plasma glucose results greater than or equal to 200 mg/dL meet the criteria for diagnosis of diabetes. Reference: Standards of Medical Care in Diabetes 2016, [place] Diabetes Association. Diabetes Care. 2016.39(Suppl 1). Interpretation and review of laboratory results Abnormal [facility] Potassium [Moles/Vol] 4.3 mmol/L 3.7 - 5.1 mmol/L [facility] Protein [Mass/Vol] 7.4 g/dL 6.3 - 8.0 g/dL [facility] Sodium [Moles/Vol] 134 mmol/L Low 136 - 144 mmol/L [facility] Urea nitrogen [Mass/Vol] 13 mg/dL 9 - 24 mg/dL [facility] Albumin [Mass/Vol] 4.4 g/dL Normal 3.9-4.9 [facility] Comment on above: Order Comment: Speci men Type: SWAB Ordering Facility: [facility] Address: [address] [place] [address] Performed By: #### S APCR #### [facility] CLIA [id number] [address] [place] [address] [place] ALP [Catalytic activity/Vol] 93 U/L Normal 38-113 [facility] Comment on above: Order Comment: Speci men Type: SWAB Ordering Facility: [facility] Address: [address] [place] [address] Performed By: #### S APCR #### [facility] CLIA [id number] [address] [place] [address] [place] ALT [Catalytic activity/Vol] 92 U/L High 10-54 [facility] Comment on above: Order Comment: Speci men Type: SWAB Ordering Facility: [facility] Address: [address] [place] [address] Performed By: #### S APCR #### [facility] CLIA [id number] [address] [place] [address] [place] Anion gap [Moles/Vol] 12 mmol/L Normal 8-15 [facility] Comment on above: Order Comment: Speci men Type: SWAB Ordering Facility: [facility] Address: [address] [place] [address] Performed By: #### S APCR #### [facility] CLIA [id number] [address] [place] [address] [place] AST [Catalytic activity/Vol] 83 U/L High 14-40 [facility] Comment on above: Order Comment: Speci men Type: SWAB Ordering Facility: [facility] Address: [address] [place] [address] Performed By: #### S APCR #### [facility] CLIA [id number] [address] [place] [address] [place] Bilirubin [Mass/Vol] 0.9 mg/dL Normal 0.2-1.3 [facility] Comment on above: Order Comment: Speci men Type: SWAB Ordering Facility: [facility] Address: [address] [place] [address] Performed By: #### S APCR #### [facility] CLIA [id number] [address] [place] [address] [place] Calcium [Mass/Vol] 10.9 mg/dL High 8.5-10.2 [facility] Comment on above: Order Comment: Speci men Type: SWAB Ordering Facility: [facility] Address: [address] [place] [address] Performed By: #### S APCR #### [facility] CLIA [id number] [address] [place] [address] [place] [place] Chloride [Moles/Vol] 99 mmol/L Normal 98-107 [facility] Comment on above: Order Comment: Speci men Type: SWAB Ordering Facility: [facility] Address: [address] [place] [address] Performed By: #### S APCR #### [facility] CLIA [id number] [address] [place] [address] [place] CO2 [Moles/Vol] 23 mmol/L Normal 22-30 [facility] Comment on above: Order Comment: Speci men Type: SWAB Ordering Facility: [facility] Address: [address] [place] [address] Performed By: #### S APCR #### [facility] CLIA [id number] [address] [place] [address] [place] Creatinine [Mass/Vol] 1.36 mg/dL High 0.73-1.22 [facility] Comment on above: Order Comment: Speci men Type: SWAB Ordering Facility: [facility] Address: [address] [place] [address] Performed By: #### S APCR #### [facility] CLIA [id number] [address] [place] [address] [place] Creatinine and Glomerular filtration rate.predicted panel (S/P/Bld) 63 mL/min/1.73m??? Normal >=60 [facility] Comment on above: Order Comment: Speci men Type: SWAB Ordering Facility: [facility] Address: [address] [place] [address] Result Comment: Yvette mated Glomerular Filtration Rate (eGFR) is calculated using the 2020 CKD-EPI creatinine equation. This equation utilizes serum creatinine, sex, and age as parameters. The creatinine assay has traceable calibration to isotope dilution-mass spectrometry. Refer to KDIGO guidelines for clinical interpretation. In patients with unstable renal function, e.g. those with acute kidney injury, the eGFR may not accurately reflect actual GFR. Performed By: #### S APCR #### [facility] CLIA [id number] [address] [place] [address] [place] Glucose [Mass/Vol] 104 mg/dL High 74-99 [facility] Comment on above: Order Comment: Speci men Type: SWAB Ordering Facility: [facility] Address: [address] [place] [address] Result Comment: The [place] Diabetes Association (ADA) provides guidance for cutoff values for fasting glucose and random glucose. The ADA defines fasting as no caloric intake for at least 8 hours. Fasting plasma glucose results between 100 to 125 mg/dL indicate increased risk for diabetes (prediabetes). Fasting plasma glucose results greater than or equal to 126 mg/dL meet the criteria for diagnosis of diabetes. In the absence of unequivocal hyperglycemia, results should be confirmed by repeat testing. In a patient with classic symptoms of hyperglycemia or hyperglycemic crisis, random plasma glucose results greater than or equal to 200 mg/dL meet the criteria for diagnosis of diabetes. Reference: Standards of Medical Care in Diabetes 2016, [place] Diabetes Association. Diabetes Care. 2016.39(Suppl 1). Performed By: #### S APCR #### [facility] CLIA [id number] [address] [place] [address] [place] Potassium [Moles/Vol] 4.3 mmol/L Normal 3.7-5.1 [facility] Comment on above: Order Comment: Speci men Type: SWAB Ordering Facility: [facility] Address: [address] [place] [address] Performed By: #### S APCR #### [facility] CLIA [id number] [address] [place] [address] [place] Protein [Mass/Vol] 7.4 g/dL Normal 6.3-8.0 [facility] Comment on above: Order Comment: Speci men Type: SWAB Ordering Facility: [facility] Address: [address] [place] [address] Performed By: #### S APCR #### [facility] CLIA [id number] [address] [place] [address] [place] Sodium [Moles/Vol] 134 mmol/L Low 136-144 [facility] Comment on above: Order Comment: Speci men Type: SWAB Ordering Facility: [facility] Address: [address] [place] [address] Performed By: #### S APCR #### [facility] CLIA [id number] [address] [place] [address] [place] Urea nitrogen [Mass/Vol] 13 mg/dL Normal 9-24 [facility] Comment on above: Order Comment: Speci men Type: SWAB Ordering Facility: [facility] Address: [address] [place] [address] Performed By: #### S APCR #### [facility] IA [id number] [address] [place] [address] [place] ECG COMPLETEon 02-16-2024 ECG COMPLETE Ventricular Rate : 8 8 BPM Atrial Rate : 88 BPM P-R Interval : 166 ms QRS Duration : 90 ms Q-T Interval : 364 ms QTC Calculation(Bazett) : 440 ms Calculated P Noel : 40 degrees Calculated R Noel : -7 degrees Calculated T Noel : 72 degrees NORMAL SINUS RHYTHM NONSPECIFIC T WAVE ABNORMALITY ABNORMAL ECG Confirmed by TYRON AREVALO MD ([id number]) on 02/21/2024 5:17:27 PM NAME : JASON MOORE PID : [id number] : 1970 Gender : Male Race : ORD : [id number] Procedure Date : Feb 16 2024 13:19:26 Edit Date : Feb 21 2024 17:17:30 Diagnosis: NORMAL SINUS RHYTHM NONSPECIFIC T WAVE ABNORMALITY ABNORMAL ECG Confirmed by TYRON AREVALO MD ([id number]) on 02/21/2024 5:17:27 PM Test Reason : Location : 119 : A17 A17 Overread By : TYRON AREVALO MD Edited By : TYRON AREVALO MD Referred By : CLAUS HINTON Acquired by : ENRRIQUE WHITE [facility] HISTORY PHYSICALon HISTORY PHYSICAL HNO ID: [id number] Author: CLAUS HINTON PA-C Service: ? Author Type: Physician Track Mechanic Type: H&P Filed: 02/22/2024 12:44 Note Text: HISTORY AND PHYSICAL EXAMINATION SERVICE DATE: 02/16/2024 SERVICE TIME: 12:35 PM PRIMARY CARE PHYSICIAN: Colton Rosario MD Assessment Patient has the following medical conditions which may affect marlena-operative course: LVH (left ventricular hypertrophy) -Per echo 10/13/22 severe concentric LVH Stage 1 diastolic dysfunction -Patient with >4 METS, denies cardiac symptoms -EKG pending Hypertension, essential -Managed on amlodipine, lisinopril, hctz -BP today 145/78 -Denies cardiac symptoms -EKG pending Former smoker -Recently quit smoking 01/14/24 -Smoked 1/2 PPD for 21 years Morbid obesity (HCC) -Body mass index is 40.63 kg/m?. JOSELITO (obstructive sleep apnea) -Patient denies, resolved with weight loss, does not use CPAP Abnormal echocardiogram -Reviewed echo from 10/13/22 Apical scaring noted on the myocardial strain pattern. Cannot completely exclude amyloid. The global longitudinal strain is severely abnormal. -Patient follows OP with highway engineering teacher Dr. Dunn of [facility], OV with physician on 12/17/22 We will consider obtaining a technetium PYP scan to exclude amyloid. I would recommend that we screen him for cardiac amyloid. -Most recent OV with Rachel Chinchilla PA-C on 06/15/23, does not appear that patient was yet worked up for amyloid. Called cardiology office, spoke with staff and no imaging found. -Will send optimization request to Dr. Dunn's office. Dang Activity Status Index: METS: Walk indoors, such as around the house (1.75 METs) Do light work around the house, such as dusting or washing dishes (2.70 METs) Take care of self; that is eating, dressing, bathing, using the toilet (2.75 METs) Walk a block or two on level ground (2.75 METs) Do moderate work around the house, such as vacuuming, sweeping floors, or carrying in groceries (3.50 METs) Do yardwork, such as raking leaves, weeding, or pushing a power mower (4.50 METs) Climb a flight of stairs or walk up a hill (5.50 METs) DASI Score: 23.45 (Limited with neck pain/neuropathy) Patient denies any chest pain or undue shortness of breath with the above physical activity. Clinical Frailty Scale: 3. Well, with treated comorbid disease STOP-Bang Score: Has or is being treated for high blood pressure BMI greater than 35 kg/m2 Patient over 50 years old Has a large neck Male patient Denies snoring loudly Denies feeling tired, fatigued, or sleepy during the daytime Has not been observed to stop breathing or choking/gasping during sleep STOP-Bang Score: 5 ANESTHESIA FINDINGS: Intubation History: No history of difficult intubation Significant Anesthesia Considerations: none Airway History: No history of difficult airway I - PHYSICAL EVALUATION AIRWAY Patient intubated: No. Tracheostomy tube not present Mallampati: IV. TM distance: <3 FB. Neck ROM: full ROM without neurological symptoms. Mouth opening: non-adequate. Short neck: no. Thick neck: yes Fernandez present: yes Lip Bite Test: II Microretrognathia/Micronag thia/Recessed Chin: No DENTAL Dental findings: teeth intact. Additional comments: +cap upper left. II - ANESTHESIA PLAN Anesthetic plan additional comments: *PACC/TCI - anesthesia choice. Beta Bhavin Monitoring Plan Post Procedure Analgesic Plan Prepared for Surgery: optimally prepared for surgery. Pending EKG, labs Pending cardiac clearance ADDENDUM 02/22/24: TANDS ordered for DOS EKG, labs reviewed and accepted Cardiac clearance received and copied into note below CONSULTS: The following consults have been initiated at this time: anesthesia (reviewed echo results with staff anesthesiologist Dr. Lexi Tavera, cardiac clearance is requested) and cardiology (letter faxed to Dr. Dunn). Planned Anesthetic: anesthesia choice ADDENDUM 02/22/24: Cardiac clearance received The Following Tests/Procedures Have Been Initiated: Orders Placed This Encounter Comprehensive Metabolic Panel Standing Status: Future Number of Occurrences: 1 Standing Expiration Date: 05/17/2024 Complete Blood Count Standing Status: Future Number of Occurrences: 1 Standing Expiration Date: 05/17/2024 Type and Screen Standing Status: Future Number of Occurrences: 1 Standing Expiration Date: 05/17/2024 ECG (FUTURE) Standing Status: Future Number of Occurrences: 1 Standing Expiration Date: 02/15/2025 REASON FOR VISIT: Jason Moore is a 53 year old male who is scheduled for Procedure(s): ARTHRODESIS CERVICAL POSTERIOR, BELOW C2 1ST SINGLE LEVEL (N/A) ARTHRODESIS CERVICAL BELOW C2, 2ND CERVICAL LEVEL (N/A) POSTERIOR SEGMENTAL INSTRUMENTATION FOLLOWING CERVICAL FUSION 3-6 LEVELS (N/A) at the request of Pelon García MD for consultation. My final recommendation will be communicate (more content not included)... Normal [facility] HbA1c (Bld)on 02-16-2024 Average glucose Estimated from glycated hemoglobin (Bld) [Mass/Vol] 137 mg/dL Normal [facility] Comment on above: Order Comment: Althea romo Type: ARTERIAL BLOOD SPECIMEN Ordering Facility: [facility] Address: [address] [place] [address] Result Comment: eAG: (Estimated average glucose) is a calculated value from HgbA1c and is loan servicing representative of the average blood glucose level in the last 2-3 month period. Performed By: #### A LLMG #### [facility] CLIA [id number] [address] [place] [address] [place] HbA1c (Bld) [Mass fraction] 6.4 % High 4.3-5.6 [facility] Comment on above: Order Comment: Alhtea romo Type: ARTERIAL BLOOD SPECIMEN Ordering Facility: [facility] Address: [address] [place] [address] Result Comment: [place] Diabetes Association guidelines indicate that patients with HgbA1c in the range 5.7-6.4% are at increased risk for development of diabetes, and intervention by lifestyle modification may be beneficial. HgbA1c greater or equal to 6.5% is considered diagnostic of diabetes. Performed By: #### A LLMG #### [facility] CLIA [id number] [address] [place] [address] [place] NICOTINE/COTININEon 02-16-20 24 Cotinine [Mass/Vol] <2 Normal <2 [facility] Comment on above: Order Comment: Althea romo Type: BLOOD SPECIMENOrdering Facility: [facility] Address: [address] [place] [address] Result Comment: Acti ve tobacco product user: Nicotine concentration: 30 - 50 ng/mL Cotinine concentration: 200 - 800 ng/mL Passive exposure to tobacco: Nicotine concentration: < 2 ng/mL Cotinine concentration: < 8 ng/mL Unexposed non-tobacco user or abstinent user for > 2 weeks: Nicotine concentration: < 2 ng/mL Cotinine concentration: < 2 ng/mL This test was developed and its performance characteristics determined by [facility]'s Obdulio Pastor [facility] ([facility]). It has not been cleared or approved by the FDA. [facility] is regulated under CLIA as qualified to perform high-complexity testing. This test is used for clinical purposes. It should not be regarded as investigational or for research. Performed By: #### N ICOT ####[facility] [id number] [place] [address] [place] Nicotine [Mass/Vol] <2 Normal <2 [facility] Comment on above: Order Comment: Speci men Type: BLOOD SPECIMENOrdering Facility: [facility] Address: [address] [place] [address] Performed By: #### N ICOT ####[facility] [id number] [place] [address] [place] STAPHYLOCOCCUS AUREUS AND MR SA SCREEN, PCR, NASALon 02-16-2024 S. aureus and MRSA panel REINALDO+probe (Nose) Not detected Normal Not Detected [facility] Comment on above: Order Comment: Speci men Type: ARTERIAL BLOOD SPECIMEN Ordering Facility: [facility] Address: [address] [place] [address] Performed By: #### A LLMG #### [facility] CLIA [id number] [address] [place] [address] [place] TYPE + SCREENon 02-16-2024 ABO group Nom (Bld) B [facility] Blood group antibody screen Ql Negative [facility] HIstorical Ab Scr Status Negative [facility] Rh Nom (Bld) Positive [facility] Type and Screen Expiration 02/19/2024 23:59 [facility] ABO B Normal [facility] Comment on above: Order Comment: Speci men Type: BLOOD SPECIMENOrdering Facility: [facility] Address: [address] [place] [address] Performed By: #### T SCR ####[facility] B[facility] BANKCLIA [id number] [address] [address] HISTORICAL AB SCR STATUS Negative Normal [facility] Comment on above: Order Comment: Speci men Type: BLOOD SPECIMENOrdering Facility: [facility] Address: [address] [place] [address] Performed By: #### T SCR ####[facility] BANKCLIA [id number] [address] Rh Nom (Bld) Positive Normal [facility] Comment on above: Order Comment: Speci men Type: BLOOD SPECIMENOrdering Facility: [facility] Address: [address] [place] [address] Performed By: #### T SCR ####[facility] BANKCLIA [id number] [address] TYPE AND SCREEN EXPIRATION 02/19/2024 23:59 Normal [facility] Comment on above: Order Comment: Speci men Type: BLOOD SPECIMENOrdering Facility: [facility] Address: [address] [place] [address] Performed By: #### T SCR ####[facility] BANKCLIA [id number] [address] Rohan 02-08-2024 CNPN Telephone (SPNSMN) -- JASON MOORE ([id number]) 1970 M Date Time Provider Department 02/08/24 PELON GREENFIELD [facility] During your visit today, we recorded the following information about you: Oksana Diaz RN 02/08/2024 1:57 PM Signed Called patient to schedule surgery 03/03/[address] Greenfield. No answer, left message on identified VM for patient to return call to office. Neetu Pereira 02/09/2024 9:26 AM Signed Pt returned call; he accepts 03/03/24 for surgery, please call him back to discuss further. Oksana Diaz RN 02/09/2024 9:44 AM Signed Neuro SPINE CARE COORDINATION SURGERY SCHEDULING Patient accepts surgery date of 03/03/[address] Greenfield at [facility]. Planned procedure: Posterior cervical fusion Length of Surgery:3 hours Expected Length of Hospital Stay:3 days Patient's Home Address: [address] [place], [place] [id number] Medications reviewed : Yes. Meds to be stopped prior to surgery : NSAIDS and Vitamins and supplements. Additional pre op clearances needed : None. . Letter Sent: No Any implanted devices (Stimulator, Defibrillator, etc.): No. Transplant History No. Nicotine use: Yes Patient will complete optimization lab work : HgbA1C and nicotine test. Education Sent Via Mail/ ToutApphart: [employer] PACC Questionnaire Completed: Yes Patient placed on cancellation list: No Pre op appts: Hari Chandler: ANUSHA PACC: [facility] 02/16/24 IC: 02/[address] Greenfield Education: VSEA 02/23 @ 2:00 Imaging: N/A Post-op Dates: 2 week Virtual Visit with Kirill Longo PA-C on 03/17/24 at 9 am 6 week post-op with Dr. Greenfield on 04/20/24 at 10:10 am. Questions answered. Patient verbalizes understanding via teach back. Additional comments : none Preoperative Needs Assessment Do you live alone or with someone that can help you? Lives with caregiver Will you have assistance available at home after your surgery to help with physical activities such a toileting or dressing? Always How many steps do you need to climb to get into your home? 0 Once in your home, how many steps do you need to climb to access your bedroom or bathroom? 0 Do you use a mobility aid for walking/getting around? (note, if more than one type of aid is used, select the one that is used more frequently) None Anticipated LOS > 5 days: No Significant home social issues or Current history or past history of substance abuse: No Wheelchair baseline, Homebound baseline, Significant gait instability, or History of significant falls: No Thora/lumbar fusion any level planned or 2+ level posterior cervical fusion planned: Yes Myelopathic or Spine tumor: No Probability of non-home discharge disposition : Low [4.5] Oksana Diaz RN Allergies As of Date: 02/08/2024 Noted Allergy Reaction ATIVAN (LORAZEPAM) 06/10/2016 8 - GI Upset PAXIL (PAROXETINE HCL) 12/25/2015 8 - GI Upset Comments: diarrhea ZOLOFT (SERTRALINE) 06/10/2016 8 - GI Upset Date Reviewed: 01/20/2024 Reviewed by: Colton Rosario MD - Fully Assessed Reason for Visit: Schedule Surgery [1330] Prescriptions as of 02/09/2024 - varenicline (CHANTIX STARTING MONTH BOX) 0.5 mg (11)- 1 mg (42) tablet Take 0.5 mg by mouth once daily on Days 1 through 3, THEN 0.5 mg twice daily on Days 4 through 7, THEN 1 mg twice daily on Day 8 and thereafter - varenicline (CHANTIX CONTINUING MONTH BOX) 1 mg tablet Take 1 tablet by mouth two times a day with meals. Start the month after the starter pack - amLODIPine (NORVASC) 10 mg tablet Take 1 tablet by mouth once daily. - lisinopril (ZESTRIL) 40 mg tablet Take 1 tablet by mouth once daily. - hydroCHLOROthiazide 25 mg tablet Take 1 tablet by mouth once daily. - gabapentin (NEURONTIN) 300 mg capsule Take 1 capsule by mouth daily at bedtime. For 3 days and then one twice a day for three days and then one three times a day as tolerated. - Tadalafil (CIALIS) 20 mg tablet Take 1 tablet by mouth once daily. As needed. Problem List As Of Date 02/08/2024 Noted Resolved Left-sided low back pain without sciatica [M54.*07/03/2011 Hypertension, essential [I10] 06/28/2014 Palpitations [R00.2] 06/28/2014 01/22/2023 Mixed hyperlipidemia [E78.2] 06/28/2014 Well adult exam [Z00.00] 06/28/2014 Neurofibroma [D36.10] 08/13/2014 Family history of colon cancer [Z80.0] 09/28/2014 Agoraphobia [F40.00] 01/24/2015 Situational anxiety [F41.8] 01/24/2015 Fatty liver [K76.0] 03/28/2016 Elevated LFTs [R79.89] 03/28/2016 Chronic bilateral low back pain without sciatic*06/10/2016 Prostate cancer screening [Z12.5] 07/10/2016 Smoker [F17.200] 07/10/2016 Alcohol use [Z78.9] 07/10/2016 01/22/2023 Obesity, Class II, BMI 35-39.9 [E66.9] 12/16/2020 Cervical radiculopathy [M54.12] 12/16/2020 01/22/2023 Acute pain of right shoulder [M25.511] 12/18/2020 03/28/2021 ABDULAZIZ (generalized anxiety disorder) [F41.1] 02/27 (more content not included)... Normal [facility] CNOVon 01-19-2024 CNOV Office Visit (FAMPWS ) -- JASON MOORE SHANEPAM ([id number]) 1970 M Date Time Provider Department 01/19/24 8:00 AM COLTON ROSARIOCATHIE During your visit today, we recorded the following information about you: Pulse Respiration Blood pressure Weight 82/minute 16/minute 122/82 124.3 kg Colton Rosario MD 01/20/2024 8:36 AM Signed Chief Complaint Patient presents with: Follow Up HPI Jason Merritt Oscar is a 53 year old male who presents here today is ready to quit smoking.. Patient is here today because he needs to quit smoking before he can have his surgery. What other methods have you tried in the past? maybe years ago he tried. Does not remember if he was on any medication to aid. How often and how much do you currently smoke a day. Has not been smoking in 3 days. Normally smokes every day; 1/2 pack a day Past medical history, appointments, medications, allergies reviewed. Previous Medical History PAST MEDICAL HISTORY Diagnosis Date Alcohol use 07/10/2016 3-5 day Back pain Cervical radiculopathy 12/16/2020 Fatty liver 03/28/2016 Heart rate fast on BB Hypertension Hypertension, essential 06/28/2014 LVH (left ventricular hypertrophy) 11/05/2022 With grade 1 Solomon dysfunction. Mixed hyperlipidemia 06/28/2014 Obesity, Class II, BMI 35-39.9 12/16/2020 JOSELITO (obstructive sleep apnea) resolved with weight loss Spinal stenosis in cervical region Tachycardia, unspecified on BB Previous Surgical History PAST SURGICAL HISTORY Procedure Laterality Date ALLOGRAFT FOR SPINE SURGERY ONLY STRUCTURAL 08/30/2011 FUSION AND REPLACED DISC lumbar ANTERIOR INSTRUMENTATION 2-3 VERTEBRAL SEGMENTS APPL-INTERVERTEBRAL BIOMECHANICAL DEVICES COLONOSCOPY FLX DX W/COLLJ SPEC WHEN PFRMD 09/28/2014 Colonoscopy, repeat 5 yrs PAST SURGICAL HISTORY OF back injections and disc biopsy PAST SURGICAL HISTORY OF 06/17/2021 C5-C6, C6-C7 anterior cervical discectomy and fusion, Insertion of intervertebral interbody device at C5-C6, C6-C7, anterior spinal instrumentation C5-C7, Use of structural allograft Family History FAMILY HISTORY Problem Relation Age of Onset Colon Cancer Father 50 Diabetes Father Hypertension Father Prostate Cancer Father 54 Colon Cancer Paternal Grandfather Diabetes Paternal Grandfather Prostate Cancer Paternal Grandfather 50'S Colon Cancer Paternal Uncle LATE 50'S Coronary Artery Disease Maternal Aunt Diabetes Paternal Uncle Diabetes Paternal Aunt Hypertension Paternal Grandmother Hypertension Paternal Aunt Hypertension Paternal Uncle Hypertension Maternal Aunt Hypertension Maternal Aunt Prostate Cancer Paternal Uncle 50'S Patient Allergies ALLERGIES Allergen Reactions Ativan [Lorazepam] GI Upset Paxil [Paroxetine H* GI Upset diarrhea Zoloft [Sertraline] GI Upset Current Medications Current Outpatient Medications on File Prior to Visit Medication Sig amLODIPine (NORVASC) 10 mg tablet Take 1 tablet by mouth once daily. lisinopril (ZESTRIL) 40 mg tablet Take 1 tablet by mouth once daily. hydroCHLOROthiazide 25 mg tablet Take 1 tablet by mouth once daily. gabapentin (NEURONTIN) 300 mg capsule Take 1 capsule by mouth daily at bedtime. For 3 days and then one twice a day for three days and then one three times a day as tolerated. Tadalafil (CIALIS) 20 mg tablet Take 1 tablet by mouth once daily. As needed. No current facility-administered medications on file prior to visit. Social History Social History Tobacco Use Smoking status: Every Day Packs/day: 0.50 Years: 21.00 Additional pack years: 0.00 Total pack years: 10.50 Types: Cigarettes Smokeless tobacco: Never Vaping Use Vaping Use: Never used Substance Use Topics Alcohol use: Yes Alcohol/week: 12.0 standard drinks of alcohol Types: 12 Cans of Beer (12oz) per week Drug use: Never Review of Symptoms REVIEW OF SYSTEMS See HPI EXAM: BP 122/82 (BP Site: Left Arm, BP Position: Sitting, BP Cuff Size: Large Adult) Pulse 82 Resp 16 Wt 124.3 kg (274 lb) BMI 40.46 kg/m? General Appearance: Well appearing, alert, in no acute distress, well-hydrated, well nourished.. Lungs: Lungs clear to auscultation. No wheezing, rhonchi, rales.. Health Maintenance List Pneumococcal Vaccine(1 of 2 - PCV) Never done Shingrix Vaccine(1 of 2) Never done Covid-19 Vaccine(3 - season) due on 04/30/2023 Behavioral Health Screening Never done BP Controlled (<130/80) due on 11/06/2023 Annual PCP Team Chronic Disease Visit due on 04/13/2024 Influenza Vaccine(Season Ended) due on 04/30/2024 DTaP,Tdap,Td Vaccine(2 - Td or Tdap) due on 06/28/2024 Diabetes Screening due on 04/08/2026 Lipid Screening due on 10/05/2027 Colorectal Cancer Screening due on 02/04/2028 Hepatitis C Screening Completed HIV Screening Completed Hepatitis B Vaccine Discon (more content not included)... [facility] Rohan 01-18-2024 CNPN Telephone (FAMPWS) -- JASON MOORE ([id number]) 1970 M Date Time Provider Department 01/18/24 JAYLAN ZHENG During your visit today, we recorded the following information about you: Jaylan Zheng MA 01/18/2024 4:45 PM Signed Left message for patient that we will only be seeing him for the smoking. He is actually due for physical. We can assist with scheduling a 40 minute visit for that. DANIELLE Franklin Roxanne, MA 01/19/2024 8:49 AM Signed Patient came in today for his appointment and we were able to schedule his physical. Jaylan Zheng MA Allergies As of Date: 01/18/2024 Noted Allergy Reaction ATIVAN (LORAZEPAM) 06/10/2016 8 - GI Upset PAXIL (PAROXETINE HCL) 12/25/2015 8 - GI Upset Comments: diarrhea ZOLOFT (SERTRALINE) 06/10/2016 8 - GI Upset Date Reviewed: 12/15/2023 Reviewed by: Mackenzie Simon MA - Fully Assessed Reason for Visit: Appointment [[id number]] Prescriptions as of 01/19/2024 - varenicline (CHANTIX STARTING MONTH BOX) 0.5 mg (11)- 1 mg (42) tablet Take 0.5 mg by mouth once daily on Days 1 through 3, THEN 0.5 mg twice daily on Days 4 through 7, THEN 1 mg twice daily on Day 8 and thereafter - varenicline (CHANTIX CONTINUING MONTH BOX) 1 mg tablet Take 1 tablet by mouth two times a day with meals. Start the month after the starter pack - amLODIPine (NORVASC) 10 mg tablet Take 1 tablet by mouth once daily. - lisinopril (ZESTRIL) 40 mg tablet Take 1 tablet by mouth once daily. - hydroCHLOROthiazide 25 mg tablet Take 1 tablet by mouth once daily. - gabapentin (NEURONTIN) 300 mg capsule Take 1 capsule by mouth daily at bedtime. For 3 days and then one twice a day for three days and then one three times a day as tolerated. - Tadalafil (CIALIS) 20 mg tablet Take 1 tablet by mouth once daily. As needed. Problem List As Of Date 01/18/2024 Noted Resolved Left-sided low back pain without sciatica [M54.*07/03/2011 Hypertension, essential [I10] 06/28/2014 Palpitations [R00.2] 06/28/2014 01/22/2023 Mixed hyperlipidemia [E78.2] 06/28/2014 Well adult exam [Z00.00] 06/28/2014 Neurofibroma [D36.10] 08/13/2014 Family history of colon cancer [Z80.0] 09/28/2014 Agoraphobia [F40.00] 01/24/2015 Situational anxiety [F41.8] 01/24/2015 Fatty liver [K76.0] 03/28/2016 Elevated LFTs [R79.89] 03/28/2016 Chronic bilateral low back pain without sciatic*06/10/2016 Prostate cancer screening [Z12.5] 07/10/2016 Smoker [F17.200] 07/10/2016 Alcohol use [Z78.9] 07/10/2016 01/22/2023 Obesity, Class II, BMI 35-39.9 [E66.9] 12/16/2020 Cervical radiculopathy [M54.12] 12/16/2020 01/22/2023 Acute pain of right shoulder [M25.511] 12/18/2020 03/28/2021 ABDULAZIZ (generalized anxiety disorder) [F41.1] 03/17/2021 Spinal stenosis of cervical region [M48.02] 03/26/2021 Tachycardia, unspecified [R00.0] 01/22/2023 JOSELITO (obstructive sleep apnea) [G47.33] H/O cervical spine surgery [Z98.890] 06/17/2021 LVH (left ventricular hypertrophy) [I51.7] 11/05/2022 ED (erectile dysfunction) of organic origin [N5*11/05/2022 DDD (degenerative disc disease), lumbar [M51.36]05/17/2023 Mass of soft tissue of forearm [M79.89] 05/17/2023 Hand numbness [R20.0] 05/17/2023 Encounter Status:Closed by JAYLAN ZHENG on 01/19/24 [facility] MR Lumbar spine WO contrasto n 11-12-2023 [facility] CT Cervical spine by reconst ruction WO contraston 10-07-2023 [facility] No Panel Informationon 10-07 [facility] Cardiology Visit Reporton 10 -17-2023 Cardiology Visit Report [facility] [address] [place] [address] OFFICE VISIT Date of Service: 06/15/23 MR#: [id number] Acct: [id number] Name: JASON MOORE Jr. Rep #: [id number] : 1970 Provider: MIKE Alonzo Age/Sex: 52/M Location: [facility] Status: Signed HPI HPI History of Present Illness Details: Jason Moore is a 52-year-old man with a known history of hypertension who presented to the emergency room recently with markedly elevation in his blood pressure. It was recorded at 194/123 mmHg with a pulse rate of 75 bpm. Hemoglobin was normal potassium was mildly reduced. He had not been taking his medications. He had an echocardiogram performed which demonstrated severe left ventricular hypertrophy, stage I diastolic dysfunction and abnormal myocardial strain pattern with apical sparing suggestive but not diagnostic of amyloid. Pt has been taking his medications. He just took them prior to coming in. He sts that his pressures have been okay at home but can not recall what they have been. From a cardiac standpoint, patient is doing well. He does not have any chest discomfort/heaviness/tight ness. His exercise tolerance is stable for his age. He does not have any worsening symptoms of shortness of breath. He denies any PND. He does not have any orthopnea. He does not have any symptoms of congestive heart failure. He does not have any palpitations that he is aware of. He does not have any lightheadedness or dizziness. He does not have any near-syncope or syncope. He does not have any lower extremity edema. He does not have any symptoms of claudication. Intake Vital Signs 12/17/22 09:28 06/15/23 08:43 06/15/23 09:07 Height 5 ft 9 in 5 ft 9 in Weight: 260 lb BMI 38.4 BP 160/73 H 140/90 H Blood Pressure Location Lt brachial Position Sitting Respiration 18 Pulse 83 Pulse Source Auscultation Intake Visit Reasons: 6 M FU Salvage Determiner Required: No Accompanied by: Self Is patient in pain?: No Allergies lorazepam [From Ativan] Allergy (Unknown, Verified 06/15/23 08:44) GI upset paroxetine [From Paxil] Allergy (Unknown, Verified 06/15/23 08:44) Diarrhea sertraline [From Zoloft] Allergy (Unknown, Verified 06/15/23 08:44) GI Upset Medications amlodipine 10 mg tablet 10 mg PO DAILY #30 tabs 10/08/22 [Rx Confirmed 06/15/23] hydrochlorothiazide 25 mg tablet 25 mg PO DAILY #30 tabs 10/08/22 [Rx Confirmed 06/15/23] lisinopril 40 mg tablet 40 mg PO DAILY #30 tabs 10/08/22 [Rx Confirmed 06/15/23] Ejection fraction %: 65 to 70 PFSH Medical History Abnormal ECG Agitated depression Cervical disc disease Chronic back pain Chronic renal insufficiency Essential hypertension Fatty liver Irregular heart beat Obesity JOSELITO (obstructive sleep apnea) Tobacco abuse Surgical History H/O Spinal surgery History of colonoscopy Family History Father Prostate cancer Diabetes Colon cancer Hypertension Grandfather Colon cancer Diabetes Prostate cancer Grandmother Hypertension Social History household members: family 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 current occupational exposures/hazards: No Smoking Status: Current every day smoker tobacco type: cigarettes alcohol intake: current alcohol intake frequency: 3 or more drinks per day details: 3-4 beers and a few shots of whiskey per day on average substance use type: does not use ROS Const Const: Negative for fatigue, weakness, fever(s) or headache(s) Eyes Eyes: Negative for blind spots, loss of peripheral vision or transient loss of vision ENT ENT: Negative for headache(s), dizziness, tinnitus, Nosebleed/epistaxis or balance problems Cardio Chest Pain: No Palpitations: No Edema: None Muscle aches with walking: None Resp Respiratory: Negative for SOB with activity, SOB at rest, SOB orthopnea SOB lying down or Cough GI GI: Negative nausea, vomiting, heartburn or vomiting blood/hematemesis : Negative for hematuria Musc Musc: Negative for muscle aches/ myalgia, muscle weakness, joint pain or balance problems Neuro Neuro: Negative for dizziness, lightheadedness, near syncope, syncope, orthostatic symptoms, headache(s) or weakness Gaetano Hematologic/Lymphatic: Negative for easy bleeding Endo Endo: Negative for fatigue Cardiology Exam Const Appearance: cooperative, healthy appearing, comfortable, no acute distress and well developed Orientation: alert, awake and oriented x3 Head Head: normal to inspection Ears: hearing grossly normal bilaterally Nose: external nose normal Face and Sinus: face symmetric Mouth: oral mucosae normal, li (more content not included)... [facility] EMG(NEURO/NI)on 05-28-2023 [facility] XR CERV OTHER 4V AP/LAT/FLX/ EXTon 05-05-2023 [facility] XR Lumbar spine Views W flex ion and W extensionon 04-08-2023 IMPRESSION: Postoperative and degenerative changes as described. [employer] Supervisor: LAURENT Transcribe Date/Time: Apr 08 2023 8:39A Dictated by : MICHELLE WARREN DO This examination was interpreted and the report reviewed and electronically signed by: MICHELLE WARREN DO on Apr 08 2023 8:42AM [facility] DIVISION OF RADIOLOGY * * *Final Report* * * DATE OF EXAM: Apr 08 2023 8:34AM WOX [id number] - XR LUMBAR 4V AP/LAT/ FLEX/EXT / PROCEDURE REASON: Left leg pain * * * * Physician Interpretation * * * * EXAMINATION: XR LUMBAR 4V AP/LAT/ FLEX/EXT PATIENT/TECHNOLOGIST PROVIDED HISTORY: Hx of spinal surgery in the past, Left leg numbness x 2 days without injury CLINICAL INFORMATION: 52 years old Male with Left leg pain TECHNIQUE: XR LUMBAR 4V AP/LAT/ FLEX/EXT Laterality: NOT APPLICABLE Number of different views (projections): 4 COMPARISON: Radiographs 02/26/2022 RESULT: Lumbar spine: Counting reference: Lumbosacral junction. For the purposes of this report, L4-5 is considered the level of the iliac crest and there are 5 lumbar-type vertebrae. Anatomic Variants: None. Post-op assessment: Status post L5-S1 anterior discectomy and interbody fusion. 2 additional screws are noted in the region of the L5-S1 posterior elements. Alignment: Alignment is satisfactory and maintained with flexion and extension. Vertebral bodies: Vertebral body heights are maintained. Spine articulations: Interbody graft at L5-S1. Mild disc space narrowing L4-L5 with small endplate osteophytes. Moderate facet degenerative changes in the lower lumbar spine. Other: Sacroiliac joints are symmetric and maintained. Partially assessed hip joint spaces are maintained. DIVISION OF RADIOLOGY Provider, Nelia Murphy - 04/08/2023 * * *Final Report* * * DATE OF EXAM: Apr 08 2023 8:34AM WOX [id number] - XR LUMBAR 4V AP/LAT/ FLEX/EXT / PROCEDURE REASON: Left leg pain * * * * Physician Interpretation * * * * EXAMINATION: XR LUMBAR 4V AP/LAT/ FLEX/EXT PATIENT/TECHNOLOGIST PROVIDED HISTORY: Hx of spinal surgery in the past, Left leg numbness x 2 days without injury CLINICAL INFORMATION: 52 years old Male with Left leg pain TECHNIQUE: XR LUMBAR 4V AP/LAT/ FLEX/EXT Laterality: NOT APPLICABLE Number of different views (projections): 4 COMPARISON: Radiographs 02/26/2022 RESULT: Lumbar spine: Counting reference: Lumbosacral junction. For the purposes of this report, L4-5 is considered the level of the iliac crest and there are 5 lumbar-type vertebrae. Anatomic Variants: None. Post-op assessment: Status post L5-S1 anterior discectomy and interbody fusion. 2 additional screws are noted in the region of the L5-S1 posterior elements. Alignment: Alignment is satisfactory and maintained with flexion and extension. Vertebral bodies: Vertebral body heights are maintained. Spine articulations: Interbody graft at L5-S1. Mild disc space narrowing L4-L5 with small endplate osteophytes. Moderate facet degenerative changes in the lower lumbar spine. Other: Sacroiliac joints are symmetric and maintained. Partially assessed hip joint spaces are maintained. IMPRESSION IMPRESSION: Postoperative and degenerative changes as described. [employer] Supervisor: PSCAngelica Transcribe Date/Time: Apr 08 2023 8:39A Dictated by : MICHELLE WARREN DO This examination was interpreted and the report reviewed and electronically signed by: MICHELLE WARREN DO on Apr 08 2023 8:42AM EST [facility] Radiology Study observation (narrative) [facility] XR Lumbar spine Views W flex ion and W extensionOrdered By: Ccf Provider on 04-08-2023 [facility] ANES POSTPROC EVALon 023 ANES POSTPROC EVAL HNO ID: [id number] Author: Anthony Ocampo MD Service: ? Author Type: Anesthesiologist Type: Anesthesia Postprocedure Evaluation Filed: 02/03/2023 12:55 PM Note Text: POST ANESTHESIA EVALUATION NOTE : 1970 Procedure Summary Date: 02/03/23 Room / Location: [facility] Endoscopy Anesthesia Start: 935 Anesthesia Stop: 957 Procedure: COLONOSCOPY SCREENING Diagnosis: Family history of colon cancer (Screening for colorectal malignant neoplasm) Scheduled Providers: Viktoria Tavera MD; Anthony Ocampo MD; Shun Houston APRN.CRITICAL CARE SPECIALIST Responsible Provider: Anthony Ocampo MD Anesthesia Type: MAC ASA Status: 2 Anesthesia Type: MAC Last Vitals Vitals Value Taken Time BP 153/92 02/03/23 1030 Temp 37 ?C (98.6 ?F) 02/03/23 1003 Pulse 81 02/03/23 1033 Resp 18 02/03/23 1033 SpO2 97 % 02/03/23 1033 Vitals shown include unvalidated device data. Post Anesthesia Patient Status Patient Evaluation: bedside. Anticipated Disposition: phase 2 then home. Neurological Status: aware and responsive. Pulmonary Status: breathing comfortably on room air Airway Control: returned to baseline unsupported. Cardiovascular Status: stable. Pain Management: clinically adequate Postoperative Hydration: acceptable. Intraoperative Events: no significant anesthesia events Post Operative Nausea/Vomiting Status: no significant post operative nausea or vomiting Recommendation: continue current plan of care. Anesthesia Observations No Documentation SIGNATURE: Anthony Ocampo MD PATIENT NAME: Jason Moore DATE: February 03, 2023 TIME: 12:55 PM CSN: [id number] Normal [facility] ANES PRE-OPon 02-03-2023 ANES PRE-OP HNO ID: [id number] Author: Anthony Ocampo MD Service: ? Author Type: Anesthesiologist Type: Anesthesia Preprocedure Evaluation Filed: 02/03/2023 9:43 AM Note Text: ANESTHESIOLOGY DAY OF SURGERY NOTE : 1970 Procedure Information Anesthesia Start Date/Time: 02/03/2336 Scheduled providers: Viktoria Tavera MD; Anthony Ocampo MD; Shun Houston APRN.CRITICAL CARE SPECIALIST Procedure: COLONOSCOPY SCREENING Location: [facility] Endoscopy Estimated body mass index is 36.77 kg/m? as calculated from the following: Height as of this encounter: 175.3 cm (5' 9). Weight as of this encounter: 112.9 kg (249 lb). Most recent hematocrit and potassium results: Hematocrit 54.3 10/05/2022 Potassium 3.9 10/05/2022 Relevant Problems ANESTHESIA (+) JOSELITO (obstructive sleep apnea) CARDIO (+) Hypertension, essential (-) Angina at rest (HCC) (-) Angina of effort (HCC) -RENAL (+) Fatty liver PULMONARY (+) JOSELITO (obstructive sleep apnea) (-) Asthma I - PHYSICAL EVALUATION AIRWAY Patient intubated: No. Tracheostomy tube not present Mallampati: II. Neck ROM: limited extension. Mouth opening: adequate. Short neck: yes. Thick neck: yes Fernandez present: no DENTAL Dental findings: teeth intact. Additional exam findings: yes. CARDIOVASCULAR Rhythm: regular Rate: normal PULMONARY Breath sounds clear to auscultation. II - ANESTHESIA PLAN ASA Score: 2 Anesthetic Plan: MAC The patient is not a current smoker. NPO Status: adequate Beta Bhavin Monitoring Plan Monitoring plan: standard ASA. Post Procedure Analgesic Plan Postoperative analgesic plan: multimodal analgesia. Informed Consent Anesthetic risks, benefits, alternatives, personnel and consent discussed: yes. Patient / Responsible Libertarian agrees to proceed: yes Patient / Surrogate agrees to blood products: Yes DNR status not reviewed with patient and/or family prior to surgery. Significant changes in the patient condition since the History and Physical, not otherwise documented in primary service progress note: no. Potential Anesthesia issues that may suggest increased risk of complications or contraindication to planned procedure: none. Vitals Value Taken Time BP 151/97 02/03/23923 Pulse Resp 20 02/03/23923 Temp 36.8 ?C (98.2 ?F) 02/03/23923 SpO2 99 % 02/03/23923 Outpatient Medications as of 02/03/2023 Medication Sig - amLODIPine (NORVASC) 10 mg tablet Take 1 tablet by mouth once daily. - lisinopril (ZESTRIL) 40 mg tablet Take 1 tablet by mouth once daily. - hydroCHLOROthiazide 25 mg tablet Take 1 tablet by mouth once daily. - Tadalafil (CIALIS) 20 mg tab(s) Take 1 tablet by mouth once daily. As needed. Facility-Administered Medications as of 02/03/2023 Medication Dose Route Frequency - lidocaine (PF) 10 mg/mL (1 %) 1-2 mg injection (XYLOCAINE) 0.1-0.2 mL INTRADERMAL PRN - lactated ringers iv infusion 75 mL/hr INTRAVENOUS CONTINUOUS I have interviewed and examined the patient. I have reviewed the medical record and/or the pre-anesthesia evaluation, pertinent labs, and test results. This contains updated information obtained within 48 hours of Surgery/Procedure. SIGNATURE: Anthony Ocampo MD PATIENT NAME: Jason Moore DATE: February 03, 2023 TIME: 9:43 AM CSN: [id number] [facility] COLONOSCOPY SCREENINGon [facility] Colonoscopyon 02-03-2023 Colonoscopy [facility] Gastrointestinal Endoscopy Patient Name: Jason Moore Procedure Date: 02/03/2023 9:19 AM Date of : 1970 Admit Type: Outpatient Age: 52 Room: [facility] Gender: Male Note Status: Finalized Attending MD: Viktoria Tavera MD Procedure: Colonoscopy Indications: Screening for colorectal malignant neoplasm, Screening in patient at increased risk: Family history of 1st-degree relative with colorectal cancer Providers: Viktoria Tavera MD Patient Profile: Refer to note in patient chart for documentation of history and physical. Last Colonoscopy: 2014. Referring Physician: Mainor Pandey (pa) (Referring MD) Medicines: See the Anesthesia note for documentation of the administered medications Complications: No immediate complications. Requesting Provider: Procedure: Pre-Anesthesia Assessment: - Monitored anesthesia care under the supervision of a CRITICAL CARE SPECIALIST was determined to be medically necessary for this procedure based on review of the patient's medical history, medications, and prior anesthesia history. After I obtained informed consent, the scope was passed under direct vision. Throughout the procedure, the patient's blood pressure, pulse, and oxygen saturations were monitored continuously. The Colonoscope was introduced through the anus and advanced to the cecum, identified by the appendiceal orifice, ileocecal valve and palpation. The colonoscopy was performed without difficulty. The patient tolerated the procedure well. The quality of the bowel preparation was suboptimal. There was still retained fecal material which required lavage and aspiration to visualize the mills adequately. This was done, but took some time, however, the mills were visualized adequately. The appendiceal orifice and the rectum were photographed. Scope Withdrawal Time: 0 hours 7 minutes 20 seconds Moderate Sedation: MAC anesthesia was administered by the anesthesia team. Total Procedure Duration: 0 hours 14 minutes 58 seconds Findings: The perianal and digital rectal examinations were normal. Non-bleeding internal hemorrhoids were found. Multiple small and large-mouthed diverticula were found in the entire colon. Impression: - Non-bleeding internal hemorrhoids. - Diverticulosis in the entire examined colon. - No specimens collected. Recommendation: - Discharge patient to home (ambulatory). - Resume previous diet. - Continue present medications. - Return to primary care physician PRN. - Patient has a contact number available for emergencies. The signs and symptoms of potential delayed complications were discussed with the patient. Return to normal activities tomorrow. Written discharge instructions were provided to the patient. - Repeat colonoscopy in 5 years for screening purposes. - Resume anticoagulant at prior dose. Procedure Code(s): --- Professional --- 12508, Colonoscopy, flexible; diagnostic, including collection of specimen(s) by brushing or washing, when performed (separate procedure) Diagnosis Code(s): --- Professional --- K57.30, Diverticulosis of large intestine without perforation or abscess without bleeding K64.8, Other hemorrhoids CPT copyright 2020 [employer]. All rights reserved. The codes documented in this report are preliminary and upon frit coater review may be revised to meet current compliance requirements. Attending Participation: I personally performed the entire procedure. Scope In: 9:41:36 AM Scope Out: 9:56:34 AM MD Viktoria Chapa MD 02/03/2023 10:01:06 AM This report has been signed electronically by Viktoria Tavera MD Number of Addenda: 0 Note Initiated On: 02/03/2023 9:19 AM Estimated Blood Loss: Estimated blood loss: none. Normal [facility] HISTORY PHYSICALon HISTORY PHYSICAL HNO ID: [id number] Author: Viktoria Tavera MD Service: General Surgery Author Type: Physician Type: HANDP Filed: 02/03/2023 9:27 AM Note Text: HISTORY AND PHYSICAL Jason Merritt Moore 1970 REFERRING PHYSICIAN: Fifi Pierre PA-C CHIEF COMPLAINT: Consult (Colonoscopy consult) HPI: The patient is a 51 year old male referred for endoscopy. Jason notes no colon complaints. Patient denies any change in bowel habits, weight changes, blood in stools, black tarry stools or abdominal pain. Notes family history of colon cancer in father, uncle and grandfather. The patient notes no upper GI complaints. Jason has undergone prior endoscopy. Last colonoscopy 09/28/[address] Hillman. No concerning findings, 5 year repeat colonoscopy recommended based on family history. Patient was sent to ED after recent family med visit on 10/06/22 at which time he had abnormal EKG findings. Notes reviewed. Patient had echo showing severe LVH and normal EF, per patient was felt to be related to his elevated blood pressure. He was advised to follow up with cardiology and have stress test completed, has not yet had this done. Patient denies problems with sedation in the past. PAST MEDICAL HISTORY PAST MEDICAL HISTORY Diagnosis Date Alcohol use 07/10/2016 3-5 day Back pain Cervical radiculopathy 12/16/2020 Fatty liver 03/28/2016 Heart rate fast on BB Hypertension Hypertension, essential 06/28/2014 LVH (left ventricular hypertrophy) 11/05/2022 With grade 1 Solomon dysfunction. Mixed hyperlipidemia 06/28/2014 Obesity, Class II, BMI 35-39.9 12/16/2020 JOSELITO (obstructive sleep apnea) resolved with weight loss Spinal stenosis in cervical region Tachycardia, unspecified on BB PAST SURGICAL HISTORY PAST SURGICAL HISTORY Procedure Laterality Date ALLOGRAFT FOR SPINE SURGERY ONLY STRUCTURAL 08/30/2011 FUSION AND REPLACED DISC lumbar ANTERIOR INSTRUMENTATION 2-3 VERTEBRAL SEGMENTS APPL-INTERVERTEBRAL BIOMECHANICAL DEVICES COLONOSCOPY FLX DX W/COLLJ SPEC WHEN PFRMD 09/28/2014 Colonoscopy, repeat 5 yrs PAST SURGICAL HISTORY OF back injections and disc biopsy PAST SURGICAL HISTORY OF 06/17/2021 C5-C6, C6-C7 anterior cervical discectomy and fusion, Insertion of intervertebral interbody device at C5-C6, C6-C7, anterior spinal instrumentation C5-C7, Use of structural allograft CURRENT MEDICATIONS Current Outpatient Medications Medication Sig amLODIPine (NORVASC) 5 mg tablet Take by mouth once daily. Take 1 tablet daily Tadalafil (CIALIS) 20 mg tab(s) Take 1 tablet by mouth once daily. As needed. lisinopril-hydroCHLOROthia zide (PRINZIDE,ZESTORETIC) 20-12.5 mg per tablet Take 1 tablet by mouth every morning. No current facility-administered medications for this visit. ALLERGIES: Ativan [Lorazepam], Paxil [Paroxetine Hcl], and Zoloft [Sertraline] PERSONAL HISTORY: SOCIAL HISTORY Social History Tobacco Use Smoking status: Every Day Packs/day: 0.50 Years: 21.00 Pack years: 10.50 Types: Cigarettes Smokeless tobacco: Never Vaping Use Vaping Use: Never used Substance Use Topics Alcohol use: Yes Alcohol/week: 8.0 - 12.0 standard drinks Types: 8 - 12 Cans of Beer (12oz) per week Comment: 3-4 beers per day Drug use: Never FAMILY HISTORY: FAMILY HISTORY FAMILY HISTORY Problem Relation Age of Onset Colon Cancer Father 50 Diabetes Father Hypertension Father Prostate Cancer Father 54 Colon Cancer Paternal Grandfather Diabetes Paternal Grandfather Prostate Cancer Paternal Grandfather 50'S Colon Cancer Paternal Uncle LATE 50'S Coronary Artery Disease Maternal Aunt Diabetes Paternal Uncle Diabetes Paternal Aunt Hypertension Paternal Grandmother Hypertension Paternal Aunt Hypertension Paternal Uncle Hypertension Maternal Aunt Hypertension Maternal Aunt Prostate Cancer Paternal Uncle 50'S REVIEW OF SYMPTOMS: The review of systems data was entered by the nurse and reviewed by fl Nursing Notes: Tiana Grissom RN 2022 9:43 AM Signed REVIEW OF SYSTEMS: General: The patient denies fatigue, denies weight loss, denies weight gain, denies feeling hot, and denies feelings of cold. Eyes: The patient denies glaucoma, denies eye injury/surgery, wears glasses or contacts. Ear/Nose/Throat: The patient denies allergies, denies hayfever, denies ear infections, and denies bloody noses. Cardiovascular: The patient denies chest pain, denies heart disease, NOTES high blood pressure,denies cardiac stent, denies prior heart attack, denies irregular heart beat, NOTES high cholesterol, denies poor circulation, NOTES heart failure, other cardiac issues, denies claudication, denies cold feet, denies peripheral arterial stent. Respiratory: The patient denies tuberculosis, denies pneumonia, denies frequent cough, denies pulmonary embolism, denies shortness of breath, and denies coughing up blood. Gastrointestinal: The patient (more content not included)... Normal [facility] Cardiology Visit Reporton Cardiology Visit Report [facility] [address] [place] [address] OFFICE VISIT Date of Service: 12/17/22 MR#: [id number] Acct: [id number] Name: JASON MOORE Jr. Rep #: [id number] : 1970 Provider: Dr. Natanael Dunn MD Age/Sex: 52/M Location: [facility] [place] Status: Signed HPI HPI History of Present Illness Details: 52-year-old man with a known history of hypertension who presented to the emergency room recently with markedly elevation in his blood pressure. It was recorded at 194/123 mmHg with a pulse rate of 75 bpm. Hemoglobin was normal potassium was mildly reduced. He apparently had not been taking his medications. He had an echocardiogram performed which demonstrated severe left ventricular hypertrophy, stage I diastolic dysfunction and abnormal myocardial strain pattern with apical sparing suggestive but not diagnostic of amyloid. He has been back on his blood pressure medications and he says that it has been doing much better. He denies any dizziness or diaphoresis near syncope or syncope. His physical exam demonstrates clear lung min regular rate and rhythm and no pedal edema. His electrocardiogram demonstrates normal sinus rhythm with a rate of 85 bpm no LVH is noted. Intake Vital Signs 10/06/22 15:46 12/17/22 09:28 12/17/22 15:57 Height 5 ft 9 in 5 ft 9 in Weight: 254 lb BP 135/82 H Blood Pressure Location Lt brachial Position Sitting Respiration 16 Pulse 103 H Pulse Source Monitor Intake Visit Reasons: HTN [facility] 10/22 (PREV [employer] PT) Salvage Determiner Required: No Accompanied by: None Is patient in pain?: No Allergies lorazepam [From Ativan] Allergy (Unknown, Verified 12/17/22 15:56) GI upset paroxetine [From Paxil] Allergy (Unknown, Verified 12/17/22 15:56) Diarrhea sertraline [From Zoloft] Allergy (Unknown, Verified 12/17/22 15:56) GI Upset Medications amlodipine 10 mg tablet 10 mg PO DAILY #30 tabs 10/08/22 [Rx Confirmed 12/17/22] hydrochlorothiazide 25 mg tablet 25 mg PO DAILY #30 tabs 10/08/22 [Rx Confirmed 12/17/22] lisinopril 40 mg tablet 40 mg PO DAILY #30 tabs 10/08/22 [Rx Confirmed 12/17/22] Ejection fraction %: 65 to 70 PFSH Medical History Abnormal ECG Agitated depression Cervical disc disease Chronic back pain Chronic renal insufficiency Essential hypertension Fatty liver Irregular heart beat Obesity JOSELITO (obstructive sleep apnea) Tobacco abuse Surgical History H/O Spinal surgery History of colonoscopy Family History Father Prostate cancer Diabetes Colon cancer Hypertension Grandfather Colon cancer Diabetes Prostate cancer Grandmother Hypertension Social History household members: family 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 current occupational exposures/hazards: No Smoking Status: Current every day smoker tobacco type: cigarettes alcohol intake: current alcohol intake frequency: 3 or more drinks per day details: 3-4 beers and a few shots of whiskey per day on average substance use type: does not use ROS Const Const: Negative for fatigue, weakness, headache(s), frequent falls, difficulty sleeping or excessive sweating Eyes Eyes: Negative for loss of peripheral vision, transient loss of vision, blurry vision, double vision or tunnel vision ENT ENT: Negative for headache(s), dizziness, Nosebleed/epistaxis or balance problems Cardio Chest Pain: No Palpitations: No Edema: None Muscle aches with walking: None Resp Respiratory: Negative for SOB with activity, SOB at rest, SOB orthopnea SOB lying down, Cough or paroxysmal nocturnal dyspnea GI GI: Negative nausea, vomiting or heartburn : Negative for hematuria Musc Musc: Negative for muscle aches/ myalgia, muscle weakness, joint pain or balance problems Skin Skin: Negative non-healing lesions, rash or unusual bruising Neuro Neuro: Negative for dizziness, lightheadedness, near syncope, syncope, orthostatic symptoms, frequent falls, headache(s), weakness, confusion, memory loss, blurry vision, double vision, vertigo or lack of coordination Gaetano Hematologic/Lymphatic: Negative for easy bleeding or easy bruising Endo Endo: Negative for fatigue, excessive sweating, flushing or increased thirst/drinking Psych Psych: Negative for anxiety or depression Allergy Allergy/Immunology: Negative for hives and Negative for rash Cardiology Exam Const Appearance: cooperative, healthy appearing, no acute distress, well developed and well groomed Nutritional Appearance: average body habitus and well nourished Orientation: alert, awake and oriented x3 Head Head: normal to (more content not included)... Normal [facility] Basic Metabolic Profile (BMP )on 10-15-2022 BUN Normal 7-18 [facility] Comment on above: Result Comment: Canc elled via OM: Order cancelled - Patient discharged Performed By: #### L 500.2500, L100.0100 #### [facility] [address] [place], [address] BUN/CRE Normal 10-20 [facility] Comment on above: Result Comment: Canc elled via OM: Order cancelled - Patient discharged Performed By: #### L 500.2500, L100.0100 #### [facility] [address] [place], [address] CA,Total Normal 8.5-10.1 [facility] Comment on above: Result Comment: Canc elled via OM: Order cancelled - Patient discharged Performed By: #### L 500.2500, L100.0100 #### [facility] [address] [place], [address] CL Normal 98-107 [facility] Comment on above: Result Comment: Canc elled via OM: Order cancelled - Patient discharged Performed By: #### L 500.2500, L100.0100 #### [facility] [address] [place], [address] CO2 Normal 21.0-32.0 [facility] Comment on above: Result Comment: Canc elled via OM: Order cancelled - Patient discharged Performed By: #### L 500.2500, L100.0100 #### [facility] [address] [place], [address] CREAT,SERUM Normal 0.70-1.30 [facility] Comment on above: Result Comment: Canc elled via OM: Order cancelled - Patient discharged Performed By: #### L 500.2500, L100.0100 #### [facility] [address] [place], [address] EST GFR Normal >60 [facility] Comment on above: Result Comment: Canc elled via OM: Order cancelled - Patient discharged Performed By: #### L 500.2500, L100.0100 #### [facility] [address] [place], [address] EST GFR - AA Normal >60 [facility] Comment on above: Result Comment: Canc elled via OM: Order cancelled - Patient discharged Performed By: #### L 500.2500, L100.0100 #### [facility] [address] [place], [address] GAP Normal 5-15 [facility] Comment on above: Result Comment: Canc elled via OM: Order cancelled - Patient discharged Performed By: #### L 500.2500, L100.0100 #### [facility] [address] [place], [address] GLU Normal 74-106 [facility] Comment on above: Result Comment: Canc elled via OM: Order cancelled - Patient discharged Performed By: #### L 500.2500, L100.0100 #### [facility] [address] [place], [address] Potassium Normal 3.5-5.1 [facility] Comment on above: Result Comment: Canc elled via OM: Order cancelled - Patient discharged Performed By: #### L 500.2500, L100.0100 #### [facility] [address] [place], [address] Basic Metabolic Profile (BMP) Normal 136-145 [facility] Comment on above: Result Comment: Canc elled via OM: Order cancelled - Patient discharged Performed By: #### L 500.2500, L100.0100 #### [facility] [address] [place], [address] CBC W/Diff, Automatedon 09-30 Absolute Neut Normal 2.0-7.7 [facility] Comment on above: Result Comment: Canc elled via OM: Order cancelled - Patient discharged Performed By: #### L 500.2500, L100.0100 #### [facility] [address] [place], [address] HCT Normal 40-54 [facility] Comment on above: Result Comment: Canc elled via OM: Order cancelled - Patient discharged Performed By: #### L 500.2500, L100.0100 #### [facility] [address] [place], [address] HGB Normal 13.0-16.5 [facility] Comment on above: Result Comment: Canc elled via OM: Order cancelled - Patient discharged Performed By: #### L 500.2500, L100.0100 #### [facility] [address] [place], [address] MCH Normal 27.0-32.0 [facility] Comment on above: Result Comment: Canc elled via OM: Order cancelled - Patient discharged Performed By: #### L 500.2500, L100.0100 #### [facility] [address] [place], [address] MCHC Normal 32-36 [facility] Comment on above: Result Comment: Canc elled via OM: Order cancelled - Patient discharged Performed By: #### L 500.2500, L100.0100 #### [facility] [address] [place], [address] MCV Normal 80-94 [facility] Comment on above: Result Comment: Canc elled via OM: Order cancelled - Patient discharged Performed By: #### L 500.2500, L100.0100 #### [facility] [address] [place], [address] NEUT% Normal 47-70 [facility] Comment on above: Result Comment: Canc elled via OM: Order cancelled - Patient discharged Performed By: #### L 500.2500, L100.0100 #### [facility] [address] [place], [address] PLT Normal 150-450 [facility] Comment on above: Result Comment: Canc elled via OM: Order cancelled - Patient discharged Performed By: #### L 500.2500, L100.0100 #### [facility] [address] [place], [address] RBC Normal 4.6-6.2 [facility] Comment on above: Result Comment: Canc elled via OM: Order cancelled - Patient discharged Performed By: #### L 500.2500, L100.0100 #### [facility] [address] [place], [address] RDW CV Normal 11.6-14.6 [facility] Comment on above: Result Comment: Canc elled via OM: Order cancelled - Patient discharged Performed By: #### L 500.2500, L100.0100 #### [facility] [address] [place], [address] RDW SD Normal 35.1-43.9 [facility] Comment on above: Result Comment: Canc elled via OM: Order cancelled - Patient discharged Performed By: #### L 500.2500, L100.0100 #### [facility] [address] [place], [address] WBC Normal 4.4-11.0 [facility] Comment on above: Result Comment: Canc elled via OM: Order cancelled - Patient discharged Performed By: #### L 500.2500, L100.0100 #### [facility] [address] [place], [address] Basic Metabolic Profile (BMP )on 10-14-2022 BUN Normal 7-18 [facility] Comment on above: Result Comment: Canc elled via OM: Order cancelled - Patient discharged Performed By: #### L 100.0100, L500.2500 #### [facility] [address] [place], [address] BUN/CRE Normal 10-20 [facility] Comment on above: Result Comment: Canc elled via OM: Order cancelled - Patient discharged Performed By: #### L 100.0100, L500.2500 #### [facility] [address] [place], [address] CA,Total Normal 8.5-10.1 [facility] Comment on above: Result Comment: Canc elled via OM: Order cancelled - Patient discharged Performed By: #### L 100.0100, L500.2500 #### [facility] [address] [place], [address] CL Normal 98-107 [facility] Comment on above: Result Comment: Canc elled via OM: Order cancelled - Patient discharged Performed By: #### L 100.0100, L500.2500 #### [facility] [address] [place], [address] CO2 Normal 21.0-32.0 [facility] Comment on above: Result Comment: Canc elled via OM: Order cancelled - Patient discharged Performed By: #### L 100.0100, L500.2500 #### [facility] [address] [place], [address] CREAT,SERUM Normal 0.70-1.30 [facility] Comment on above: Result Comment: Canc elled via OM: Order cancelled - Patient discharged Performed By: #### L 100.0100, L500.2500 #### [facility] [address] [place], [address] EST GFR Normal >60 [facility] Comment on above: Result Comment: Canc elled via OM: Order cancelled - Patient discharged Performed By: #### L 100.0100, L500.2500 #### [facility] [address] [place], [address] EST GFR - AA Normal >60 [facility] Comment on above: Result Comment: Canc elled via OM: Order cancelled - Patient discharged Performed By: #### L 100.0100, L500.2500 #### [facility] [address] [place], [address] GAP Normal 5-15 [facility] Comment on above: Result Comment: Canc elled via OM: Order cancelled - Patient discharged Performed By: #### L 100.0100, L500.2500 #### [facility] [address] [place], [address] GLU Normal 74-106 [facility] Comment on above: Result Comment: Canc elled via OM: Order cancelled - Patient discharged Performed By: #### L 100.0100, L500.2500 #### [facility] [address] [place], [address] Potassium Normal 3.5-5.1 [facility] Comment on above: Result Comment: Canc elled via OM: Order cancelled - Patient discharged Performed By: #### L 100.0100, L500.2500 #### [facility] [address] [place], [address] Basic Metabolic Profile (BMP) Normal 136-145 [facility] Comment on above: Result Comment: Canc elled via OM: Order cancelled - Patient discharged Performed By: #### L 100.0100, L500.2500 #### [facility] [address] [place], [address] CBC W/Diff, Automatedon 09-30 Absolute Neut Normal 2.0-7.7 [facility] Comment on above: Result Comment: Canc elled via OM: Order cancelled - Patient discharged Performed By: #### L 100.0100, L500.2500 #### [facility] [address] [place], [address] HCT Normal 40-54 [facility] Comment on above: Result Comment: Canc elled via OM: Order cancelled - Patient discharged Performed By: #### L 100.0100, L500.2500 #### [facility] [address] [place], [address] HGB Normal 13.0-16.5 [facility] Comment on above: Result Comment: Canc elled via OM: Order cancelled - Patient discharged Performed By: #### L 100.0100, L500.2500 #### [facility] [address] [place], [address] MCH Normal 27.0-32.0 [facility] Comment on above: Result Comment: Canc elled via OM: Order cancelled - Patient discharged Performed By: #### L 100.0100, L500.2500 #### [facility] [address] [place], [address] MCHC Normal 32-36 [facility] Comment on above: Result Comment: Canc elled via OM: Order cancelled - Patient discharged Performed By: #### L 100.0100, L500.2500 #### [facility] [address] [place], [address] MCV Normal 80-94 [facility] Comment on above: Result Comment: Canc elled via OM: Order cancelled - Patient discharged Performed By: #### L 100.0100, L500.2500 #### [facility] [address] [place], [address] NEUT% Normal 47-70 [facility] Comment on above: Result Comment: Canc elled via OM: Order cancelled - Patient discharged Performed By: #### L 100.0100, L500.2500 #### [facility] [address] [place], [address] PLT Normal 150-450 [facility] Comment on above: Result Comment: Canc elled via OM: Order cancelled - Patient discharged Performed By: #### L 100.0100, L500.2500 #### [facility] [address] [place], [address] RBC Normal 4.6-6.2 [facility] Comment on above: Result Comment: Canc elled via OM: Order cancelled - Patient discharged Performed By: #### L 100.0100, L500.2500 #### [facility] [address] [place], [address] RDW CV Normal 11.6-14.6 [facility] Comment on above: Result Comment: Canc elled via OM: Order cancelled - Patient discharged Performed By: #### L 100.0100, L500.2500 #### [facility] [address] [place], [address] RDW SD Normal 35.1-43.9 [facility] Comment on above: Result Comment: Canc elled via OM: Order cancelled - Patient discharged Performed By: #### L 100.0100, L500.2500 #### [facility] [address] [place], [address] WBC Normal 4.4-11.0 [facility] Comment on above: Result Comment: Canc elled via OM: Order cancelled - Patient discharged Performed By: #### L 100.0100, L500.2500 #### [facility] [address] [place], [address] Basic Metabolic Profile (BMP )on 10-13-2022 BUN Normal 7-18 [facility] Comment on above: Result Comment: Canc elled via OM: Order cancelled - Patient discharged Performed By: #### L 500.2500, L100.0100 #### [facility] [address] [place], [address] BUN/CRE Normal 10-20 [facility] Comment on above: Result Comment: Canc elled via OM: Order cancelled - Patient discharged Performed By: #### L 500.2500, L100.0100 #### [facility] [address] [place], [address] CA,Total Normal 8.5-10.1 [facility] Comment on above: Result Comment: Canc elled via OM: Order cancelled - Patient discharged Performed By: #### L 500.2500, L100.0100 #### [facility] [address] [place], [address] CL Normal 98-107 [facility] Comment on above: Result Comment: Canc elled via OM: Order cancelled - Patient discharged Performed By: #### L 500.2500, L100.0100 #### [facility] [address] [place], [address] CO2 Normal 21.0-32.0 [facility] Comment on above: Result Comment: Canc elled via OM: Order cancelled - Patient discharged Performed By: #### L 500.2500, L100.0100 #### [facility] [address] [place], [address] CREAT,SERUM Normal 0.70-1.30 [facility] Comment on above: Result Comment: Canc elled via OM: Order cancelled - Patient discharged Performed By: #### L 500.2500, L100.0100 #### [facility] [address] [place], [address] EST GFR Normal >60 [facility] Comment on above: Result Comment: Canc elled via OM: Order cancelled - Patient discharged Performed By: #### L 500.2500, L100.0100 #### [facility] [address] [place], [address] EST GFR - AA Normal >60 [facility] Comment on above: Result Comment: Canc elled via OM: Order cancelled - Patient discharged Performed By: #### L 500.2500, L100.0100 #### [facility] [address] [place], [address] GAP Normal 5-15 [facility] Comment on above: Result Comment: Canc elled via OM: Order cancelled - Patient discharged Performed By: #### L 500.2500, L100.0100 #### [facility] [address] [place], [address] GLU Normal 74-106 [facility] Comment on above: Result Comment: Canc elled via OM: Order cancelled - Patient discharged Performed By: #### L 500.2500, L100.0100 #### [facility] [address] [place], [address] Potassium Normal 3.5-5.1 [facility] Comment on above: Result Comment: Canc elled via OM: Order cancelled - Patient discharged Performed By: #### L 500.2500, L100.0100 #### [facility] [address] [place], [address] Basic Metabolic Profile (BMP) Normal 136-145 [facility] Comment on above: Result Comment: Canc elled via OM: Order cancelled - Patient discharged Performed By: #### L 500.2500, L100.0100 #### [facility] [address] [place], [address] CBC W/Diff, Automatedon 02- Absolute Neut Normal 2.0-7.7 [facility] Comment on above: Result Comment: Canc elled via OM: Order cancelled - Patient discharged Performed By: #### L 500.2500, L100.0100 #### [facility] [address] [place], [address] HCT Normal 40-54 [facility] Comment on above: Result Comment: Canc elled via OM: Order cancelled - Patient discharged Performed By: #### L 500.2500, L100.0100 #### [facility] [address] [place], [address] HGB Normal 13.0-16.5 [facility] Comment on above: Result Comment: Canc elled via OM: Order cancelled - Patient discharged Performed By: #### L 500.2500, L100.0100 #### [facility] [address] [place], [address] MCH Normal 27.0-32.0 [facility] Comment on above: Result Comment: Canc elled via OM: Order cancelled - Patient discharged Performed By: #### L 500.2500, L100.0100 #### [facility] [address] [place], [address] MCHC Normal 32-36 [facility] Comment on above: Result Comment: Canc elled via OM: Order cancelled - Patient discharged Performed By: #### L 500.2500, L100.0100 #### [facility] [address] [place], [address] MCV Normal 80-94 [facility] Comment on above: Result Comment: Canc elled via OM: Order cancelled - Patient discharged Performed By: #### L 500.2500, L100.0100 #### [facility] [address] [place], [address] NEUT% Normal 47-70 [facility] Comment on above: Result Comment: Canc elled via OM: Order cancelled - Patient discharged Performed By: #### L 500.2500, L100.0100 #### [facility] [address] [place], [address] PLT Normal 150-450 [facility] Comment on above: Result Comment: Canc elled via OM: Order cancelled - Patient discharged Performed By: #### L 500.2500, L100.0100 #### [facility] [address] [place], [address] RBC Normal 4.6-6.2 [facility] Comment on above: Result Comment: Canc elled via OM: Order cancelled - Patient discharged Performed By: #### L 500.2500, L100.0100 #### [facility] [address] [place], [address] RDW CV Normal 11.6-14.6 [facility] Comment on above: Result Comment: Canc elled via OM: Order cancelled - Patient discharged Performed By: #### L 500.2500, L100.0100 #### [facility] [address] [place], [address] RDW SD Normal 35.1-43.9 [facility] Comment on above: Result Comment: Canc elled via OM: Order cancelled - Patient discharged Performed By: #### L 500.2500, L100.0100 #### [facility] [address] [place], [address] WBC Normal 4.4-11.0 [facility] Comment on above: Result Comment: Canc elled via OM: Order cancelled - Patient discharged Performed By: #### L 500.2500, L100.0100 #### [facility] [address] [place], [address] Basic Metabolic Profile (BMP )on 10-12-2022 BUN Normal 7-18 [facility] Comment on above: Result Comment: Canc elled via OM: Order cancelled - Patient discharged Performed By: #### L 500.2500, L100.0100 #### [facility] [address] [place], [address] BUN/CRE Normal 10-20 [facility] Comment on above: Result Comment: Canc elled via OM: Order cancelled - Patient discharged Performed By: #### L 500.2500, L100.0100 #### [facility] [address] [place], [address] CA,Total Normal 8.5-10.1 [facility] Comment on above: Result Comment: Canc elled via OM: Order cancelled - Patient discharged Performed By: #### L 500.2500, L100.0100 #### [facility] [address] [place], [address] CL Normal 98-107 [facility] Comment on above: Result Comment: Canc elled via OM: Order cancelled - Patient discharged Performed By: #### L 500.2500, L100.0100 #### [facility] [address] [place], [address] CO2 Normal 21.0-32.0 [facility] Comment on above: Result Comment: Canc elled via OM: Order cancelled - Patient discharged Performed By: #### L 500.2500, L100.0100 #### [facility] [address] [place], [address] CREAT,SERUM Normal 0.70-1.30 [facility] Comment on above: Result Comment: Canc elled via OM: Order cancelled - Patient discharged Performed By: #### L 500.2500, L100.0100 #### [facility] [address] [place] [place], [address] EST GFR Normal >60 [facility] Comment on above: Result Comment: Canc elled via OM: Order cancelled - Patient discharged Performed By: #### L 500.2500, L100.0100 #### [facility] [address] [place], [address] EST GFR - AA Normal >60 [facility] Comment on above: Result Comment: Canc elled via OM: Order cancelled - Patient discharged Performed By: #### L 500.2500, L100.0100 #### [facility] [address] [place], [address] GAP Normal 5-15 [facility] Comment on above: Result Comment: Canc elled via OM: Order cancelled - Patient discharged Performed By: #### L 500.2500, L100.0100 #### [facility] [address] [place], [address] GLU Normal 74-106 [facility] Comment on above: Result Comment: Canc elled via OM: Order cancelled - Patient discharged Performed By: #### L 500.2500, L100.0100 #### [facility] [address] [place], [address] Potassium Normal 3.5-5.1 [facility] Comment on above: Result Comment: Canc elled via OM: Order cancelled - Patient discharged Performed By: #### L 500.2500, L100.0100 #### [facility] [address] [place], [address] Basic Metabolic Profile (BMP) Normal 136-145 [facility] Comment on above: Result Comment: Canc elled via OM: Order cancelled - Patient discharged Performed By: #### L 500.2500, L100.0100 #### [facility] [address] [place], [address] CBC W/Diff, Automatedon - Absolute Neut Normal 2.0-7.7 [facility] Comment on above: Result Comment: Canc elled via OM: Order cancelled - Patient discharged Performed By: #### L 500.2500, L100.0100 #### [facility] [address] [place], [address] HCT Normal 40-54 [facility] Comment on above: Result Comment: Canc elled via OM: Order cancelled - Patient discharged Performed By: #### L 500.2500, L100.0100 #### [facility] [address] [place], [address] HGB Normal 13.0-16.5 [facility] Comment on above: Result Comment: Canc elled via OM: Order cancelled - Patient discharged Performed By: #### L 500.2500, L100.0100 #### [facility] [address] [place], [address] MCH Normal 27.0-32.0 [facility] Comment on above: Result Comment: Canc elled via OM: Order cancelled - Patient discharged Performed By: #### L 500.2500, L100.0100 #### [facility] [address] [place], [address] MCHC Normal 32-36 [facility] Comment on above: Result Comment: Canc elled via OM: Order cancelled - Patient discharged Performed By: #### L 500.2500, L100.0100 #### [facility] [address] [place], [address] MCV Normal 80-94 [facility] Comment on above: Result Comment: Canc elled via OM: Order cancelled - Patient discharged Performed By: #### L 500.2500, L100.0100 #### [facility] [address] [place], [address] NEUT% Normal 47-70 [facility] Comment on above: Result Comment: Canc elled via OM: Order cancelled - Patient discharged Performed By: #### L 500.2500, L100.0100 #### [facility] [address] [place], [address] PLT Normal 150-450 [facility] Comment on above: Result Comment: Canc elled via OM: Order cancelled - Patient discharged Performed By: #### L 500.2500, L100.0100 #### [facility] [address] [place], [address] RBC Normal 4.6-6.2 [facility] Comment on above: Result Comment: Canc elled via OM: Order cancelled - Patient discharged Performed By: #### L 500.2500, L100.0100 #### [facility] [address] [place], [address] RDW CV Normal 11.6-14.6 [facility] Comment on above: Result Comment: Canc elled via OM: Order cancelled - Patient discharged Performed By: #### L 500.2500, L100.0100 #### [facility] [address] [place], [address] RDW SD Normal 35.1-43.9 [facility] Comment on above: Result Comment: Canc elled via OM: Order cancelled - Patient discharged Performed By: #### L 500.2500, L100.0100 #### [facility] [address] [place], [address] WBC Normal 4.4-11.0 [facility] Comment on above: Result Comment: Canc elled via OM: Order cancelled - Patient discharged Performed By: #### L 500.2500, L100.0100 #### [facility] [address] [place], [address] Basic Metabolic Profile (BMP )on 10-11-2022 BUN Normal 7-18 [facility] Comment on above: Result Comment: Canc elled via OM: Order cancelled - Patient discharged Performed By: #### L 500.2500, L100.0100 #### [facility] [address] [place], [address] BUN/CRE Normal 10-20 [facility] Comment on above: Result Comment: Canc elled via OM: Order cancelled - Patient discharged Performed By: #### L 500.2500, L100.0100 #### [facility] [address] [place], [address] CA,Total Normal 8.5-10.1 [facility] Comment on above: Result Comment: Canc elled via OM: Order cancelled - Patient discharged Performed By: #### L 500.2500, L100.0100 #### [facility] [address] [place], [address] CL Normal 98-107 [facility] Comment on above: Result Comment: Canc elled via OM: Order cancelled - Patient discharged Performed By: #### L 500.2500, L100.0100 #### [facility] [address] [place], [address] CO2 Normal 21.0-32.0 [facility] Comment on above: Result Comment: Canc elled via OM: Order cancelled - Patient discharged Performed By: #### L 500.2500, L100.0100 #### [facility] [address] [place], [address] CREAT,SERUM Normal 0.70-1.30 [facility] Comment on above: Result Comment: Canc elled via OM: Order cancelled - Patient discharged Performed By: #### L 500.2500, L100.0100 #### [facility] [address] [place], [address] EST GFR Normal >60 [facility] Comment on above: Result Comment: Canc elled via OM: Order cancelled - Patient discharged Performed By: #### L 500.2500, L100.0100 #### [facility] [address] [place], [address] EST GFR - AA Normal >60 [facility] Comment on above: Result Comment: Canc elled via OM: Order cancelled - Patient discharged Performed By: #### L 500.2500, L100.0100 #### [facility] [address] [place], [address] GAP Normal 5-15 [facility] Comment on above: Result Comment: Canc elled via OM: Order cancelled - Patient discharged Performed By: #### L 500.2500, L100.0100 #### [facility] [address] [place], [address] GLU Normal 74-106 [facility] Comment on above: Result Comment: Canc elled via OM: Order cancelled - Patient discharged Performed By: #### L 500.2500, L100.0100 #### [facility] [address] [place], [address] Potassium Normal 3.5-5.1 [facility] Comment on above: Result Comment: Canc elled via OM: Order cancelled - Patient discharged Performed By: #### L 500.2500, L100.0100 #### [facility] [address] [place], [address] Basic Metabolic Profile (BMP) Normal 136-145 [facility] Comment on above: Result Comment: Canc elled via OM: Order cancelled - Patient discharged Performed By: #### L 500.2500, L100.0100 #### [facility] [address] [place], [address] CBC W/Diff, Automatedon - Absolute Neut Normal 2.0-7.7 [facility] Comment on above: Result Comment: Canc elled via OM: Order cancelled - Patient discharged Performed By: #### L 500.2500, L100.0100 #### [facility] [address] [place], [address] HCT Normal 40-54 [facility] Comment on above: Result Comment: Canc elled via OM: Order cancelled - Patient discharged Performed By: #### L 500.2500, L100.0100 #### [facility] [address] [place], [address] HGB Normal 13.0-16.5 [facility] Comment on above: Result Comment: Canc elled via OM: Order cancelled - Patient discharged Performed By: #### L 500.2500, L100.0100 #### [facility] [address] [place], [address] MCH Normal 27.0-32.0 [facility] Comment on above: Result Comment: Canc elled via OM: Order cancelled - Patient discharged Performed By: #### L 500.2500, L100.0100 #### [facility] [address] [place], [address] MCHC Normal 32-36 [facility] Comment on above: Result Comment: Canc elled via OM: Order cancelled - Patient discharged Performed By: #### L 500.2500, L100.0100 #### [facility] [address] [place], [address] MCV Normal 80-94 [facility] Comment on above: Result Comment: Canc elled via OM: Order cancelled - Patient discharged Performed By: #### L 500.2500, L100.0100 #### [facility] [address] [place], [address] NEUT% Normal 47-70 [facility] Comment on above: Result Comment: Canc elled via OM: Order cancelled - Patient discharged Performed By: #### L 500.2500, L100.0100 #### [facility] [address] [place], [address] PLT Normal 150-450 [facility] Comment on above: Result Comment: Canc elled via OM: Order cancelled - Patient discharged Performed By: #### L 500.2500, L100.0100 #### [facility] [address] [place], [address] RBC Normal 4.6-6.2 [facility] Comment on above: Result Comment: Canc elled via OM: Order cancelled - Patient discharged Performed By: #### L 500.2500, L100.0100 #### [facility] [address] [place], [address] RDW CV Normal 11.6-14.6 [facility] Comment on above: Result Comment: Canc elled via OM: Order cancelled - Patient discharged Performed By: #### L 500.2500, L100.0100 #### [facility] [address] [place], [address] RDW SD Normal 35.1-43.9 [facility] Comment on above: Result Comment: Canc elled via OM: Order cancelled - Patient discharged Performed By: #### L 500.2500, L100.0100 #### [facility] [address] [place], [address] WBC Normal 4.4-11.0 [facility] Comment on above: Result Comment: Canc elled via OM: Order cancelled - Patient discharged Performed By: #### L 500.2500, L100.0100 #### [facility] [address] [place], [address] Basic Metabolic Profile (BMP )on 10-10-2022 BUN Normal 7-18 [facility] Comment on above: Result Comment: Canc elled via OM: Order cancelled - Patient discharged Performed By: #### L 500.2500, L100.0100 #### [facility] [address] [place], [address] BUN/CRE Normal 10-20 [facility] Comment on above: Result Comment: Canc elled via OM: Order cancelled - Patient discharged Performed By: #### L 500.2500, L100.0100 #### [facility] [address] [place], [address] CA,Total Normal 8.5-10.1 [facility] Comment on above: Result Comment: Canc elled via OM: Order cancelled - Patient discharged Performed By: #### L 500.2500, L100.0100 #### [facility] [address] [place], [address] CL Normal 98-107 [facility] Comment on above: Result Comment: Canc elled via OM: Order cancelled - Patient discharged Performed By: #### L 500.2500, L100.0100 #### [facility] [address] [place], [address] CO2 Normal 21.0-32.0 [facility] Comment on above: Result Comment: Canc elled via OM: Order cancelled - Patient discharged Performed By: #### L 500.2500, L100.0100 #### [facility] [address] [place], [address] CREAT,SERUM Normal 0.70-1.30 [facility] Comment on above: Result Comment: Canc elled via OM: Order cancelled - Patient discharged Performed By: #### L 500.2500, L100.0100 #### [facility] [address] [place], [address] EST GFR Normal >60 [facility] Comment on above: Result Comment: Canc elled via OM: Order cancelled - Patient discharged Performed By: #### L 500.2500, L100.0100 #### [facility] [address] [place], [address] EST GFR - AA Normal >60 [facility] Comment on above: Result Comment: Canc elled via OM: Order cancelled - Patient discharged Performed By: #### L 500.2500, L100.0100 #### [facility] [address] [place], [address] GAP Normal 5-15 [facility] Comment on above: Result Comment: Canc elled via OM: Order cancelled - Patient discharged Performed By: #### L 500.2500, L100.0100 #### [facility] [address] [place], [address] GLU Normal 74-106 [facility] Comment on above: Result Comment: Canc elled via OM: Order cancelled - Patient discharged Performed By: #### L 500.2500, L100.0100 #### [facility] [address] [place], [address] Potassium Normal 3.5-5.1 [facility] Comment on above: Result Comment: Canc elled via OM: Order cancelled - Patient discharged Performed By: #### L 500.2500, L100.0100 #### [facility] [address] [place], [address] Basic Metabolic Profile (BMP) Normal 136-145 [facility] Comment on above: Result Comment: Canc elled via OM: Order cancelled - Patient discharged Performed By: #### L 500.2500, L100.0100 #### [facility] [address] [place], [address] CBC W/Diff, Automatedon 02- Absolute Neut Normal 2.0-7.7 [facility] Comment on above: Result Comment: Canc elled via OM: Order cancelled - Patient discharged Performed By: #### L 500.2500, L100.0100 #### [facility] [address] [place], [address] HCT Normal 40-54 [facility] Comment on above: Result Comment: Canc elled via OM: Order cancelled - Patient discharged Performed By: #### L 500.2500, L100.0100 #### [facility] [address] [place], [address] HGB Normal 13.0-16.5 [facility] Comment on above: Result Comment: Canc elled via OM: Order cancelled - Patient discharged Performed By: #### L 500.2500, L100.0100 #### [facility] [address] [place], [address] MCH Normal 27.0-32.0 [facility] Comment on above: Result Comment: Canc elled via OM: Order cancelled - Patient discharged Performed By: #### L 500.2500, L100.0100 #### [facility] [address] [place], [address] MCHC Normal 32-36 [facility] Comment on above: Result Comment: Canc elled via OM: Order cancelled - Patient discharged Performed By: #### L 500.2500, L100.0100 #### [facility] [address] [place], [address] MCV Normal 80-94 [facility] Comment on above: Result Comment: Canc elled via OM: Order cancelled - Patient discharged Performed By: #### L 500.2500, L100.0100 #### [facility] [address] [place], [address] NEUT% Normal 47-70 [facility] Comment on above: Result Comment: Canc elled via OM: Order cancelled - Patient discharged Performed By: #### L 500.2500, L100.0100 #### [facility] [address] [place], [address] PLT Normal 150-450 [facility] Comment on above: Result Comment: Canc elled via OM: Order cancelled - Patient discharged Performed By: #### L 500.2500, L100.0100 #### [facility] [address] [place], [address] RBC Normal 4.6-6.2 [facility] Comment on above: Result Comment: Canc elled via OM: Order cancelled - Patient discharged Performed By: #### L 500.2500, L100.0100 #### [facility] [address] [place], [address] RDW CV Normal 11.6-14.6 [facility] Comment on above: Result Comment: Canc elled via OM: Order cancelled - Patient discharged Performed By: #### L 500.2500, L100.0100 #### [facility] [address] [place], [address] RDW SD Normal 35.1-43.9 [facility] Comment on above: Result Comment: Canc elled via OM: Order cancelled - Patient discharged Performed By: #### L 500.2500, L100.0100 #### [facility] [address] [place], [address] WBC Normal 4.4-11.0 [facility] Comment on above: Result Comment: Canc elled via OM: Order cancelled - Patient discharged Performed By: #### L 500.2500, L100.0100 #### [facility] [address] [place], [address] Basic Metabolic Profile (BMP )on 10-09-2022 BUN Normal 7-18 [facility] Comment on above: Result Comment: Canc elled via OM: Order cancelled - Patient discharged Performed By: #### L 500.2500, L100.0100 #### [facility] [address] [place], [address] BUN/CRE Normal 10-20 [facility] Comment on above: Result Comment: Canc elled via OM: Order cancelled - Patient discharged Performed By: #### L 500.2500, L100.0100 #### [facility] [address] [place], [address] CA,Total Normal 8.5-10.1 [facility] Comment on above: Result Comment: Canc elled via OM: Order cancelled - Patient discharged Performed By: #### L 500.2500, L100.0100 #### [facility] [address] [place], [address] CL Normal 98-107 [facility] Comment on above: Result Comment: Canc elled via OM: Order cancelled - Patient discharged Performed By: #### L 500.2500, L100.0100 #### [facility] [address] [place], [address] CO2 Normal 21.0-32.0 [facility] Comment on above: Result Comment: Canc elled via OM: Order cancelled - Patient discharged Performed By: #### L 500.2500, L100.0100 #### [facility] [address] [place], [address] CREAT,SERUM Normal 0.70-1.30 [facility] Comment on above: Result Comment: Canc elled via OM: Order cancelled - Patient discharged Performed By: #### L 500.2500, L100.0100 #### [facility] [address] [place], [address] EST GFR Normal >60 [facility] Comment on above: Result Comment: Canc elled via OM: Order cancelled - Patient discharged Performed By: #### L 500.2500, L100.0100 #### [facility] [address] [place], [address] EST GFR - AA Normal >60 [facility] Comment on above: Result Comment: Canc elled via OM: Order cancelled - Patient discharged Performed By: #### L 500.2500, L100.0100 #### [facility] [address] [place], [address] GAP Normal 5-15 [facility] Comment on above: Result Comment: Canc elled via OM: Order cancelled - Patient discharged Performed By: #### L 500.2500, L100.0100 #### [facility] [address] [place], [address] GLU Normal 74-106 [facility] Comment on above: Result Comment: Canc elled via OM: Order cancelled - Patient discharged Performed By: #### L 500.2500, L100.0100 #### [facility] [address] [place], [address] Potassium Normal 3.5-5.1 [facility] Comment on above: Result Comment: Canc elled via OM: Order cancelled - Patient discharged Performed By: #### L 500.2500, L100.0100 #### [facility] [address] [place], [address] Basic Metabolic Profile (BMP) Normal 136-145 [facility] Comment on above: Result Comment: Canc elled via OM: Order cancelled - Patient discharged Performed By: #### L 500.2500, L100.0100 #### [facility] [address] [place], [address] CBC W/Diff, Automatedon 02- 0-2022 Absolute Neut Normal 2.0-7.7 [facility] Comment on above: Result Comment: Canc elled via OM: Order cancelled - Patient discharged Performed By: #### L 500.2500, L100.0100 #### [facility] [address] [place], [address] HCT Normal 40-54 [facility] Comment on above: Result Comment: Canc elled via OM: Order cancelled - Patient discharged Performed By: #### L 500.2500, L100.0100 #### [facility] [address] [place], [address] HGB Normal 13.0-16.5 [facility] Comment on above: Result Comment: Canc elled via OM: Order cancelled - Patient discharged Performed By: #### L 500.2500, L100.0100 #### [facility] [address] [place], [address] MCH Normal 27.0-32.0 [facility] Comment on above: Result Comment: Canc elled via OM: Order cancelled - Patient discharged Performed By: #### L 500.2500, L100.0100 #### [facility] [address] [place], [address] MCHC Normal 32-36 [facility] Comment on above: Result Comment: Canc elled via OM: Order cancelled - Patient discharged Performed By: #### L 500.2500, L100.0100 #### [facility] [address] [place], [address] MCV Normal 80-94 [facility] Comment on above: Result Comment: Canc elled via OM: Order cancelled - Patient discharged Performed By: #### L 500.2500, L100.0100 #### [facility] [address] [place], [address] NEUT% Normal 47-70 [facility] Comment on above: Result Comment: Canc elled via OM: Order cancelled - Patient discharged Performed By: #### L 500.2500, L100.0100 #### [facility] [address] [place], [address] PLT Normal 150-450 [facility] Comment on above: Result Comment: Canc elled via OM: Order cancelled - Patient discharged Performed By: #### L 500.2500, L100.0100 #### [facility] [address] [place], [address] RBC Normal 4.6-6.2 [facility] Comment on above: Result Comment: Canc elled via OM: Order cancelled - Patient discharged Performed By: #### L 500.2500, L100.0100 #### [facility] [address] [place], [address] RDW CV Normal 11.6-14.6 [facility] Comment on above: Result Comment: Canc elled via OM: Order cancelled - Patient discharged Performed By: #### L 500.2500, L100.0100 #### [facility] [address] [place], [address] RDW SD Normal 35.1-43.9 [facility] Comment on above: Result Comment: Canc elled via OM: Order cancelled - Patient discharged Performed By: #### L 500.2500, L100.0100 #### [facility] [address] [place], [address] WBC Normal 4.4-11.0 [facility] Comment on above: Result Comment: Canc elled via OM: Order cancelled - Patient discharged Performed By: #### L 500.2500, L100.0100 #### [facility] [address] [place], [address] Absolute lymphocyte countOrd ered By: Dr. Salazar on 10-08-2022 Lymphocytes Auto (Unsp spec) [#/Vol] 1.55 10*3/uL 0.83-4.51 [facility] Basic Metabolic Profile (BMP )on 10-08-2022 BUN/CRE 7.4 RATIO Low 10-20 [facility] Comment on above: Performed By: #### L 500.2500, L100.0100 #### [facility] [address] [place], [address] CA,Total 9.6 mg/dL Normal 8.5-10.1 [facility] Comment on above: Performed By: #### L 500.2500, L100.0100 #### [facility] [address] [place], [address] Chloride [Moles/Vol] 102 mmol/L Normal 98-107 [facility] Comment on above: Performed By: #### L 500.2500, L100.0100 #### [facility] [address] [place], [address] CO2 [Moles/Vol] 27.0 mmol/L Normal 21.0-32.0 [facility] Comment on above: Performed By: #### L 500.2500, L100.0100 #### [facility] [address] [place], [address] Creatinine [Mass/Vol] 1.22 mg/dL Normal 0.70-1.30 [facility] Comment on above: Result Comment: The validity of the calculated GFR GFRAA in patients over 70 years has not been determined. Clinical correlation is essential. Performed By: #### L 500.2500, L100.0100 #### [facility] [address] [place], [address] ECRCL 73.24 ml/min Normal [facility] Comment on above: Performed By: #### L 500.2500, L100.0100 #### [facility] [address] [place], [address] EST GFR - AA 81 mL/min Normal >60 [facility] Comment on above: Result Comment: Afri can Polish GFR Calc Performed By: #### L 500.2500, L100.0100 #### [facility] [address] [place], [address] GAP 6 Normal 5-15 [facility] Comment on above: Performed By: #### L 500.2500, L100.0100 #### [facility] [address] [place], [address] GFR/1.73 sq M.predicted among non-blacks MDRD (S/P/Bld) [Vol rate/Area] 67 mL/min/{1.73_m2} Normal >60 [facility] Comment on above: Result Comment: Non- GFR Calc Performed By: #### L 500.2500, L100.0100 #### [facility] [address] [place], [address] Glucose [Mass/Vol] 105 mg/dL Normal 74-106 [facility] Comment on above: Result Comment: Fast ing Glucose result from 100 to 125 mg/dL suggests IMPAIRED HOMEOSTASIS per A.D.A. criteria. Performed By: #### L 500.2500, L100.0100 #### [facility] [address] [place], [address] Potassium [Moles/Vol] 3.4 mmol/L Low 3.5-5.1 [facility] Comment on above: Result Comment: Slig ht Hemolysis, Result may be falsely increased. Performed By: #### L 500.2500, L100.0100 #### [facility] [address] [place], [address] Sodium [Moles/Vol] 135 mmol/L Low 136-145 [facility] Comment on above: Performed By: #### L 500.2500, L100.0100 #### [facility] [address] [place], [address] Urea nitrogen [Mass/Vol] 9 mg/dL Normal 7-18 [facility] Comment on above: Performed By: #### L 500.2500, L100.0100 #### [facility] [address] [place], [address] Basophil percentageOrdered B y: Dr. Salazar on 10-08-2022 Basophils/100 WBC (Bld) 0.6 % 0-1 [facility] Chloride [Moles/Vol] 102 mmol/L 98-107 [facility] Eosinophils/100 WBC (Bld) 1.3 % 0-5 [facility] Glucose [Mass/Vol] 105 mg/dL 74-106 [facility] Comment on above: Fasting Glucose resu lt from 100 to 125 mg/dL suggests IMPAIRED HOMEOSTASIS per A.D.A. criteria. Neutrophils (Bld) [#/Vol] 4.5 10*3/uL 2.0-7.7 [facility] Neutrophils/100 WBC (Bld) 67.0 % 47-70 [facility] Potassium [Moles/Vol] 3.4 mmol/L 3.5-5.1 [facility] Comment on above: Slight Hemolysis, Re sult may be falsely increased. Sodium [Moles/Vol] 135 mmol/L 136-145 [facility] WBC (Bld) [#/Vol] 6.8 10*3/uL 4.4-11.0 [facility] Blood erythrocytes count (nu mber/volume)Ordered By: Dr. Salazar on 10-08-2022 RBC (Bld) [#/Vol] 4.92 10*6/uL 4.6-6.2 [facility] Blood hemoglobin measurement (mass/volume)Ordered By: Dr. Salazar on 10-08-2022 Hemoglobin (Bld) [Mass/Vol] 16.5 g/dL 13.0-16.5 [facility] Blood lymphocytes/100 leukoc ytesOrdered By: Dr. Salazar on 10-08-2022 Lymphocytes/100 WBC (Bld) 22.9 % 19-41 [facility] Blood monocytes/100 leukocyt esOrdered By: Dr. Salazar on 10-08-2022 Monocytes/100 WBC (Bld) 7.5 % 0-10 [facility] Blood platelet mean volumeOr dered By: Dr. Salazar on 10-08-2022 Platelet mean volume (Bld) [Entitic vol] 11.0 fL 6.2-12.0 [facility] CBC W/Diff, Automatedon 02-0 Absolute Lymph 1.55 X10 3/uL Normal 0.83-4.51 [facility] Comment on above: Performed By: #### L 500.2500, L100.0100 #### [facility] [address] [place], [address] Absolute Neut 4.5 X10 3/uL Normal 2.0-7.7 [facility] Comment on above: Performed By: #### L 500.2500, L100.0100 #### [facility] [address] [place], [address] Basophils/100 WBC (Bld) 0.6 % Normal 0-1 [facility] Comment on above: Performed By: #### L 500.2500, L100.0100 #### [facility] [address] [place], [address] Eosinophils/100 WBC (Bld) 1.3 % Normal 0-5 [facility] Comment on above: Performed By: #### L 500.2500, L100.0100 #### [facility] [address] [place], [address] Erythrocyte distribution width (RBC) [Ratio] 11.9 % Normal 11.6-14.6 [facility] Comment on above: Performed By: #### L 500.2500, L100.0100 #### [facility] [address] [place], [address] Hematocrit (Bld) [Volume fraction] 48.3 % Normal 40-54 [facility] Comment on above: Performed By: #### L 500.2500, L100.0100 #### [facility] [address] [place], [address] Hemoglobin (Bld) [Mass/Vol] 16.5 g/dL Normal 13.0-16.5 [facility] Comment on above: Performed By: #### L 500.2500, L100.0100 #### [facility] [address] [place], [address] IG% 0.700 Normal 0.0-0.9 [facility] Comment on above: Result Comment: IG% - Immature Granulocytes (promyelocytes, myelocytes and metamyelocytes) > 1% indicates that a LEFT SHIFT is Present. Performed By: #### L 500.2500, L100.0100 #### [facility] [address] [place], [address] Lymphocytes/100 WBC (Bld) 22.9 % Normal 19-41 [facility] Comment on above: Performed By: #### L 500.2500, L100.0100 #### [facility] [address] [place], [address] MCH (RBC) [Entitic mass] 33.5 pg High 27.0-32.0 [facility] Comment on above: Performed By: #### L 500.2500, L100.0100 #### [facility] [address] [place], [address] MCHC (RBC) [Mass/Vol] 34.2 g/dL Normal 32-36 [facility] Comment on above: Performed By: #### L 500.2500, L100.0100 #### [facility] [address] [place], [address] MCV (RBC) [Entitic vol] 98.2 fL High 80-94 [facility] Comment on above: Performed By: #### L 500.2500, L100.0100 #### [facility] [address] [place], [address] Monocytes/100 WBC (Bld) 7.5 % Normal 0-10 [facility] Comment on above: Performed By: #### L 500.2500, L100.0100 #### [facility] [address] [place], [address] Neutrophils/100 WBC (Bld) 67.0 % Normal 47-70 [facility] Comment on above: Performed By: #### L 500.2500, L100.0100 #### [facility] [address] [place], [address] Nucleated RBC (Bld) [#/Vol] 0 10*3/uL Normal 0-5 [facility] Comment on above: Performed By: #### L 500.2500, L100.0100 #### [facility] [address] [place], [address] Platelet mean volume (Bld) [Entitic vol] 11.0 fL Normal 6.2-12.0 [facility] Comment on above: Performed By: #### L 500.2500, L100.0100 #### [facility] [address] [place], [address] Platelets (Bld) [#/Vol] 201 10*3/uL Normal 150-450 [facility] Comment on above: Performed By: #### L 500.2500, L100.0100 #### [facility] [address] [place], [address] RBC (Bld) [#/Vol] 4.92 10*6/uL Normal 4.6-6.2 [facility] Comment on above: Performed By: #### L 500.2500, L100.0100 #### [facility] [address] [place], [address] RDW SD 42.9 fl Normal 35.1-43.9 [facility] Comment on above: Performed By: #### L 500.2500, L100.0100 #### [facility] [address] [place], [address] WBC (Bld) [#/Vol] 6.8 10*3/uL Normal 4.4-11.0 [facility] Comment on above: Performed By: #### L 500.2500, L100.0100 #### [facility] [address] [place], [address] Determination of erythrocyte mean corpuscular volume (MCV)Ordered By: Dr. Salazar on 10-08-2022 MCV (RBC) [Entitic vol] 98.2 fL 80-94 [facility] Discharge Instructionon Discharge Instruction [facility] Medical Records Department [address] [place] [address] Instructions for Home/Discharge Instructions 10/08/22 0928 MR#: [id number] Acct: [id number] Name: OSCARJASON Jr. Rep #: [id number] : 1970 51 From: Ludy Salazar MD PCP: Dr. Colton Rosario MD Status:ADM IN Discharge Instructions Diet Discharge Diet: Low fat / Low cholesterol Activity Discharge Activity: Return to Normal Activity Weight Bearing Status: Weight bearing as tolerated Dressing / Incision Call your doctor if you observe: Fever of 101 or Higher, Shortness of breath, Dizziness, Swelling in the ankles, Chest pain and Increased palpitations (irregular heartbeat) Follow Up Care Test Results: Test results from this visit will be discussed in further detail at your follow-up appointment, if applicable. Discharge Plan Admission Admit Date/Time: 10/06/22 10:58 Primary Reason for Your Visit: hypertensive urgency Attending Provider: Ludy Salazar Primary Care Provider: Colton Rosario Instructions Patient Instructions: ED Hypertension, Established, ED High Blood Pressure Hypertension Discharge Orders/Prescriptions Prescriptions: New amlodipine 10 mg Tablet 10 mg PO DAILY Qty: 30 2RF hydrochlorothiazide 25 mg Tablet 25 mg PO DAILY Qty: 30 2RF lisinopril 40 mg Tablet 40 mg PO DAILY Qty: 30 2RF Discontinued amlodipine 5 mg tablet 5 mg PO DAILY Referrals / Follow Up: Colton Rosario MD [Primary Care Provider] - Within 2 Weeks Kota Barba NP, [facility] [Non-Staff] - Disposition Disposition (needs filled in before D/C Order can be placed): Home, Self Care 10/08/22927 Ludy Salazar MD CC: Dr. Colton Rosario MD Signed Normal [facility] Hematocrit Auto (Bld) [Volum e fraction]Ordered By: Dr. Salazar on 10-08-2022 Hematocrit (Bld) [Volume fraction] 48.3 % 40-54 [facility] - Chemistry and C hemistry - challengeOrdered By: Dr. Salazar on 10-08-2022 CO2 [Moles/Vol] 27.0 mmol/L 21.0-32.0 [facility] Urea nitrogen/Creatinine [Mass ratio] 7.4 mg/mg 10-20 [facility] - Hematology and Cell countsOrdered By: Dr. Salazar on 10-08-2022 Erythrocyte distribution width (RBC) [Entitic vol] 42.9 fL 35.1-43.9 [facility] Erythrocyte distribution width (RBC) [Ratio] 11.9 % 11.6-14.6 [facility] Immature granulocytes/100 WBC (Bld) 0.700 % 0.0-0.9 [facility] Comment on above: IG% - Immature Granu locytes (promyelocytes, myelocytes and metamyelocytes) > 1% indicates that a LEFT SHIFT is Present. MCH (RBC) [Entitic mass] 33.5 pg 27.0-32.0 [facility] Nucleated RBC/100 WBC (Bld) [Ratio] 0 % 0-5 [facility] MCHC Auto (RBC) [Mass/Vol]Or dered By: Dr. Salazar on 10-08-2022 MCHC (RBC) [Mass/Vol] 34.2 g/dL 32-36 [facility] No Panel InformationOrdered By: Dr. Salazar on 10-08-2022 Estimated Creatinine Clearance Calc 73.24 ml/min [facility] Estimated GFR (MDRD) Amer 81 mL/min >60 [facility] Comment on above: GFR Calc Estimated GFR (MDRD) Non-Af Amer 67 mL/min >60 [facility] Comment on above: Non- GFR Calc Platelets bldOrdered By: Dr. Salazar on 10-08-2022 Platelets (Bld) [#/Vol] 201 10*3/uL 150-450 [facility] Serum or plasma calcium susie urement (mass/volume)Ordered By: Dr. Salazar on 10-08-2022 Calcium [Mass/Vol] 9.6 mg/dL 8.5-10.1 [facility] Serum or plasma creatinine m easurement (mass/volume)Ordered By: Dr. Salazar on 10-08-2022 Creatinine [Mass/Vol] 1.22 mg/dL 0.70-1.30 [facility] Comment on above: The validity of the calculated GFR & GFRAA in patients over 70 years has not been determined. Clinical correlation is essential. Serum or plasma urea nitroge n measurement (mass/volume)Ordered By: Dr. Salazar on 10-08-2022 Urea nitrogen [Mass/Vol] 9 mg/dL 7-18 [facility] Thin prep Papanicolaou smear with manual screeningOrdered By: Dr. Salazar on 10-08-2022 Thin prep Papanicolaou smear with manual screening 6 5-15 [facility] Basic Metabolic Profile (BMP )on 10-07-2022 BUN/CRE 7.6 RATIO Low 10-20 [facility] Comment on above: Performed By: #### L 100.0100, L500.2500 #### [facility] [address] [place], [address] CA,Total 9.4 mg/dL Normal 8.5-10.1 [facility] Comment on above: Performed By: #### L 100.0100, L500.2500 #### [facility] [address] [place], [address] Chloride [Moles/Vol] 108 mmol/L High 98-107 [facility] Comment on above: Performed By: #### L 100.0100, L500.2500 #### [facility] [address] [place], [address] CO2 [Moles/Vol] 23.0 mmol/L Normal 21.0-32.0 [facility] Comment on above: Performed By: #### L 100.0100, L500.2500 #### [facility] [address] [place], [address] Creatinine [Mass/Vol] 1.05 mg/dL Normal 0.70-1.30 [facility] Comment on above: Result Comment: The validity of the calculated GFR GFRAA in patients over 70 years has not been determined. Clinical correlation is essential. Performed By: #### L 100.0100, L500.2500 #### [facility] [address] [place], [address] ECRCL 85.10 ml/min Normal [facility] Comment on above: Performed By: #### L 100.0100, L500.2500 #### [facility] [address] [place], [address] EST GFR - AA 96 mL/min Normal >60 [facility] Comment on above: Result Comment: Afri can Polish GFR Calc Performed By: #### L 100.0100, L500.2500 #### [facility] [address] [place], [address] GAP 7 Normal 5-15 [facility] Comment on above: Performed By: #### L 100.0100, L500.2500 #### [facility] [address] [place], [address] GFR/1.73 sq M.predicted among non-blacks MDRD (S/P/Bld) [Vol rate/Area] 80 mL/min/{1.73_m2} Normal >60 [facility] Comment on above: Result Comment: Non- GFR Calc Performed By: #### L 100.0100, L500.2500 #### [facility] [address] [place], [address] Glucose [Mass/Vol] 116 mg/dL High 74-106 [facility] Comment on above: Result Comment: Fast ing Glucose result from 100 to 125 mg/dL suggests IMPAIRED HOMEOSTASIS per A.D.A. criteria. Performed By: #### L 100.0100, L500.2500 #### [facility] [address] [place], [address] Potassium [Moles/Vol] 3.5 mmol/L Normal 3.5-5.1 [facility] Comment on above: Result Comment: Slig ht Hemolysis, Result may be falsely increased. Performed By: #### L 100.0100, L500.2500 #### [facility] [address] [place], [address] Sodium [Moles/Vol] 138 mmol/L Normal 136-145 [facility] Comment on above: Performed By: #### L 100.0100, L500.2500 #### [facility] [address] [place], [address] Urea nitrogen [Mass/Vol] 8 mg/dL Normal 7-18 [facility] Comment on above: Performed By: #### L 100.0100, L500.2500 #### [facility] [address] [place], [address] CBC W/Diff, Automatedon 02-0 8-2022 Absolute Lymph 1.70 X10 3/uL Normal 0.83-4.51 [facility] Comment on above: Performed By: #### L 100.0100, L500.2500 #### [facility] [address] [place], [address] Absolute Neut 3.9 X10 3/uL Normal 2.0-7.7 [facility] Comment on above: Performed By: #### L 100.0100, L500.2500 #### [facility] [address] [place], [address] Basophils/100 WBC (Bld) 0.5 % Normal 0-1 [facility] Comment on above: Performed By: #### L 100.0100, L500.2500 #### [facility] [address] [place], [address] Eosinophils/100 WBC (Bld) 0.8 % Normal 0-5 [facility] Comment on above: Performed By: #### L 100.0100, L500.2500 #### [facility] [address] [place], [address] Erythrocyte distribution width (RBC) [Ratio] 11.9 % Normal 11.6-14.6 [facility] Comment on above: Performed By: #### L 100.0100, L500.2500 #### [facility] [address] [place], [address] Hematocrit (Bld) [Volume fraction] 49.0 % Normal 40-54 [facility] Comment on above: Performed By: #### L 100.0100, L500.2500 #### [facility] [address] [place], [address] Hemoglobin (Bld) [Mass/Vol] 16.8 g/dL High 13.0-16.5 [facility] Comment on above: Performed By: #### L 100.0100, L500.2500 #### [facility] [address] [place], [address] IG% 0.700 Normal 0.0-0.9 [facility] Comment on above: Result Comment: IG% - Immature Granulocytes (promyelocytes, myelocytes and metamyelocytes) > 1% indicates that a LEFT SHIFT is Present. Performed By: #### L 100.0100, L500.2500 #### [facility] [address] [place], [address] Lymphocytes/100 WBC (Bld) 27.9 % Normal 19-41 [facility] Comment on above: Performed By: #### L 100.0100, L500.2500 #### [facility] [address] [place], [address] MCH (RBC) [Entitic mass] 33.3 pg High 27.0-32.0 [facility] Comment on above: Performed By: #### L 100.0100, L500.2500 #### [facility] [address] [place], [address] MCHC (RBC) [Mass/Vol] 34.3 g/dL Normal 32-36 [facility] Comment on above: Performed By: #### L 100.0100, L500.2500 #### [facility] [address] [place], [address] MCV (RBC) [Entitic vol] 97.0 fL High 80-94 [facility] Comment on above: Performed By: #### L 100.0100, L500.2500 #### [facility] [address] [place], [address] Monocytes/100 WBC (Bld) 5.6 % Normal 0-10 [facility] Comment on above: Performed By: #### L 100.0100, L500.2500 #### [facility] [address] [place], [address] Neutrophils/100 WBC (Bld) 64.5 % Normal 47-70 [facility] Comment on above: Performed By: #### L 100.0100, L500.2500 #### [facility] [address] [place], [address] Nucleated RBC (Bld) [#/Vol] 0 10*3/uL Normal 0-5 [facility] Comment on above: Performed By: #### L 100.0100, L500.2500 #### [facility] [address] [place], [address] Platelet mean volume (Bld) [Entitic vol] 11.2 fL Normal 6.2-12.0 [facility] Comment on above: Performed By: #### L 100.0100, L500.2500 #### [facility] [address] [place], [address] Platelets (Bld) [#/Vol] 200 10*3/uL Normal 150-450 [facility] Comment on above: Performed By: #### L 100.0100, L500.2500 #### [facility] [address] [place], [address] RBC (Bld) [#/Vol] 5.05 10*6/uL Normal 4.6-6.2 [facility] Comment on above: Performed By: #### L 100.0100, L500.2500 #### [facility] [address] [place], [address] RDW SD 42.4 fl Normal 35.1-43.9 [facility] Comment on above: Performed By: #### L 100.0100, L500.2500 #### [facility] [address] [place], [address] WBC (Bld) [#/Vol] 6.1 10*3/uL Normal 4.4-11.0 [facility] Comment on above: Performed By: #### L 100.0100, L500.2500 #### [facility] [address] [place], [address] L501.4020on 10-07-2022 TROPONIN-I HS 27 pg/mL Normal 3.0-78.0 [facility] Comment on above: Order Comment: Comme nts: SPECIMEN #3'TROP' Serial specimen #1, #2 or #3: 3 Result Comment: Plea se Note: New Test Units and Gender Specific Reference Ranges. For more information see Policy Stat Procedure Otis High Sensitivity Troponin (TNIH) and attachments. Performed By: #### L 500.2500, L100.0100 #### [facility] [address] [facility] [place], [address] 12 Lead EKGon 10-06-2022 12 Lead EKG [facility] [address] [place] [address] 12 Lead EKG 10/06/22 0827 MR#: [id number] Acct: [id number] Name: JASON MOORE Jr. Rep #: [id number] : 1970 51 From: Natanael Dunn MD Attending Dr: Dr. Ludy Salazar MD Status: DI S IN Ordering Dr: Willie Terry DO Date: 10/06/22 Location: [facility] Sex: M AA Admitted: 10/06/22 Test Reason : ABN EKG Blood Pressure : / mmHG Vent. Rate : 085 BPM Atrial Rate : 085 BPM P-R Int : 174 ms QRS Dur : 086 ms QT Int : 382 ms P-R-T Axes : 028 -24 113 degrees QTc Int : 454 ms Normal sinus rhythm Nonspecific T wave abnormality Abnormal ECG Confirmed by NATANAEL DUNN MD ([id number]), proposal editor MAINOR SANCHEZ ([id number]) on 10/08/2022 11:33:37 AM Referred By: Confirmed By:NATANAEL DUNN MD 10/08/22 1133 Date Natanael Dunn MD CC: Dr. Colton Rosario MD; Dr. Ludy Salazar MD; Dr. Willie Terry DO Signed Normal [facility] Absolute lymphocyte countOrd ered By: Dr. Terry on 10-06-2022 Lymphocytes Auto (Unsp spec) [#/Vol] 1.95 10*3/uL 0.83-4.51 [facility] Basic Metabolic Profile (BMP )on 10-06-2022 BUN/CRE 11.0 RATIO Normal 10-20 [facility] Comment on above: Order Comment: 'TROP ' Serial specimen #1, #2 or #3: 1 Performed By: #### L 500.2500, L100.0100 #### [facility] [address] [place], [address] CA,Total 9.6 mg/dL Normal 8.5-10.1 [facility] Comment on above: Order Comment: 'TROP ' Serial specimen #1, #2 or #3: 1 Performed By: #### L 500.2500, L100.0100 #### [facility] [address] [place], [address] Chloride [Moles/Vol] 106 mmol/L Normal 98-107 [facility] Comment on above: Order Comment: 'TROP ' Serial specimen #1, #2 or #3: 1 Performed By: #### L 500.2500, L100.0100 #### [facility] [address] [place], [address] CO2 [Moles/Vol] 25.0 mmol/L Normal 21.0-32.0 [facility] Comment on above: Order Comment: 'TROP ' Serial specimen #1, #2 or #3: 1 Performed By: #### L 500.2500, L100.0100 #### [facility] [address] [place], [address] Creatinine [Mass/Vol] 1.36 mg/dL High 0.70-1.30 [facility] Comment on above: Order Comment: 'TROP ' Serial specimen #1, #2 or #3: 1 Result Comment: The validity of the calculated GFR GFRAA in patients over 70 years has not been determined. Clinical correlation is essential. Performed By: #### L 500.2500, L100.0100 #### [facility] [address] [place], [address] ECRCL 65.70 ml/min Normal [facility] Comment on above: Order Comment: 'TROP ' Serial specimen #1, #2 or #3: 1 Performed By: #### L 500.2500, L100.0100 #### [facility] [address] [place], [address] EST GFR - AA 71 mL/min Normal >60 [facility] Comment on above: Order Comment: 'TROP ' Serial specimen #1, #2 or #3: 1 Result Comment: Afri can Polish GFR Calc Performed By: #### L 500.2500, L100.0100 #### [facility] [address] [place], [address] GAP 7 Normal 5-15 [facility] Comment on above: Order Comment: 'TROP ' Serial specimen #1, #2 or #3: 1 Performed By: #### L 500.2500, L100.0100 #### [facility] [address] [place], [address] GFR/1.73 sq M.predicted among non-blacks MDRD (S/P/Bld) [Vol rate/Area] 59 mL/min/{1.73_m2} Low >60 [facility] Comment on above: Order Comment: 'TROP ' Serial specimen #1, #2 or #3: 1 Result Comment: Non- GFR Calc Performed By: #### L 500.2500, L100.0100 #### [facility] [address] [place], [address] Glucose [Mass/Vol] 117 mg/dL High 74-106 [facility] Comment on above: Order Comment: 'TROP ' Serial specimen #1, #2 or #3: 1 Result Comment: Fast ing Glucose result from 100 to 125 mg/dL suggests IMPAIRED HOMEOSTASIS per A.D.A. criteria. Performed By: #### L 500.2500, L100.0100 #### [facility] [address] [place], [address] Potassium [Moles/Vol] 3.4 mmol/L Low 3.5-5.1 [facility] Comment on above: Order Comment: 'TROP ' Serial specimen #1, #2 or #3: 1 Performed By: #### L 500.2500, L100.0100 #### [facility] [address] [place], [address] Sodium [Moles/Vol] 138 mmol/L Normal 136-145 [facility] Comment on above: Order Comment: 'TROP ' Serial specimen #1, #2 or #3: 1 Performed By: #### L 500.2500, L100.0100 #### [facility] [address] [place], [address] Urea nitrogen [Mass/Vol] 15 mg/dL Normal 7-18 [facility] Comment on above: Order Comment: 'TROP ' Serial specimen #1, #2 or #3: 1 Performed By: #### L 500.2500, L100.0100 #### [facility] [address] [place], [address] Basophil percentageOrdered B y: Dr. Terry on 10-06-2022 Basophils/100 WBC (Bld) 0.7 % 0-1 [facility] Chloride [Moles/Vol] 106 mmol/L 98-107 [facility] Eosinophils/100 WBC (Bld) 0.4 % 0-5 [facility] Glucose [Mass/Vol] 117 mg/dL 74-106 [facility] Comment on above: Fasting Glucose resu lt from 100 to 125 mg/dL suggests IMPAIRED HOMEOSTASIS per A.D.A. criteria. Neutrophils (Bld) [#/Vol] 4.4 10*3/uL 2.0-7.7 [facility] Neutrophils/100 WBC (Bld) 63.7 % 47-70 [facility] Potassium [Moles/Vol] 3.4 mmol/L 3.5-5.1 [facility] Sodium [Moles/Vol] 138 mmol/L 136-145 [facility] WBC (Bld) [#/Vol] 6.9 10*3/uL 4.4-11.0 [facility] Blood erythrocytes count (nu mber/volume)Ordered By: Dr. Terry on 10-06-2022 RBC (Bld) [#/Vol] 5.27 10*6/uL 4.6-6.2 [facility] Blood hemoglobin measurement (mass/volume)Ordered By: Dr. Terry on 10-06-2022 Hemoglobin (Bld) [Mass/Vol] 17.8 g/dL 13.0-16.5 [facility] Blood lymphocytes/100 leukoc ytesOrdered By: Dr. Terry on 10-06-2022 Lymphocytes/100 WBC (Bld) 28.2 % 19-41 [facility] Blood monocytes/100 leukocyt esOrdered By: [address] Terry on 10-06-2022 Monocytes/100 WBC (Bld) 6.6 % 0-10 [facility] Blood platelet mean volumeOr dered By: Dr. Terry on 10-06-2022 Platelet mean volume (Bld) [Entitic vol] 11.0 fL 6.2-12.0 [facility] CBC W/Diff, Automatedon Absolute Lymph 1.95 X10 3/uL Normal 0.83-4.51 [facility] Comment on above: Performed By: #### L 500.2500, L100.0100 #### [facility] [address] [place], [address] Absolute Neut 4.4 X10 3/uL Normal 2.0-7.7 [facility] Comment on above: Performed By: #### L 500.2500, L100.0100 #### [facility] [address] [place], [address] Basophils/100 WBC (Bld) 0.7 % Normal 0-1 [facility] Comment on above: Performed By: #### L 500.2500, L100.0100 #### [facility] [address] [place], [address] Eosinophils/100 WBC (Bld) 0.4 % Normal 0-5 [facility] Comment on above: Performed By: #### L 500.2500, L100.0100 #### [facility] [address] [place], [address] Erythrocyte distribution width (RBC) [Ratio] 11.9 % Normal 11.6-14.6 [facility] Comment on above: Performed By: #### L 500.2500, L100.0100 #### [facility] [address] [place], [address] Hematocrit (Bld) [Volume fraction] 50.5 % Normal 40-54 [facility] Comment on above: Performed By: #### L 500.2500, L100.0100 #### [facility] [address] [place], [address] Hemoglobin (Bld) [Mass/Vol] 17.8 g/dL High 13.0-16.5 [facility] Comment on above: Performed By: #### L 500.2500, L100.0100 #### [facility] [address] [place], [address] IG% 0.400 Normal 0.0-0.9 [facility] Comment on above: Result Comment: IG% - Immature Granulocytes (promyelocytes, myelocytes and metamyelocytes) > 1% indicates that a LEFT SHIFT is Present. Performed By: #### L 500.2500, L100.0100 #### [facility] [address] [place], [address] Lymphocytes/100 WBC (Bld) 28.2 % Normal 19-41 [facility] Comment on above: Performed By: #### L 500.2500, L100.0100 #### [facility] [address] [place], [address] MCH (RBC) [Entitic mass] 33.8 pg High 27.0-32.0 [facility] Comment on above: Performed By: #### L 500.2500, L100.0100 #### [facility] [address] [place], [address] MCHC (RBC) [Mass/Vol] 35.2 g/dL Normal 32-36 [facility] Comment on above: Performed By: #### L 500.2500, L100.0100 #### [facility] [address] [place], [address] MCV (RBC) [Entitic vol] 95.8 fL High 80-94 [facility] Comment on above: Performed By: #### L 500.2500, L100.0100 #### [facility] [address] [place], [address] Monocytes/100 WBC (Bld) 6.6 % Normal 0-10 [facility] Comment on above: Performed By: #### L 500.2500, L100.0100 #### [facility] [address] [place], [address] Neutrophils/100 WBC (Bld) 63.7 % Normal 47-70 [facility] Comment on above: Performed By: #### L 500.2500, L100.0100 #### [facility] [address] [place], [address] Nucleated RBC (Bld) [#/Vol] 0 10*3/uL Normal 0-5 [facility] Comment on above: Performed By: #### L 500.2500, L100.0100 #### [facility] [address] [place], [address] Platelet mean volume (Bld) [Entitic vol] 11.0 fL Normal 6.2-12.0 [facility] Comment on above: Performed By: #### L 500.2500, L100.0100 #### [facility] [address] [place], [address] Platelets (Bld) [#/Vol] 212 10*3/uL Normal 150-450 [facility] Comment on above: Performed By: #### L 500.2500, L100.0100 #### [facility] [address] [place], [address] RBC (Bld) [#/Vol] 5.27 10*6/uL Normal 4.6-6.2 [facility] Comment on above: Performed By: #### L 500.2500, L100.0100 #### [facility] [address] [place], [address] RDW SD 41.6 fl Normal 35.1-43.9 [facility] Comment on above: Performed By: #### L 500.2500, L100.0100 #### [facility] [address] [place], [address] WBC (Bld) [#/Vol] 6.9 10*3/uL Normal 4.4-11.0 [facility] Comment on above: Performed By: #### L 500.2500, L100.0100 #### [facility] [address] [place], [address] Determination of erythrocyte mean corpuscular volume (MCV)Ordered By: Dr. Terry on 10-06-2022 MCV (RBC) [Entitic vol] 95.8 fL 80-94 [facility] Echo Completeon 10-06-2022 Echo Complete [facility] [address] [place] [address] Echo Complete 10/07/2238 MR#: [id number] Acct: [id number] Name: JASON MOORE Jr. Rep #: [id number] : 1970 51 From: Natanael Dunn MD Attending Dr: Dr. Ludy Salazar MD Status: AD M IN Ordering Dr: Ludy Salazar MD Date: 10/06/22 Location: [facility] Sex: M AA Admitted: 10/06/22 Reason For Study: HYPERTENSION Procedure This was a 2D Doppler, Color Flow transthoracic echocardiogram. Myocardial strain analysis was performed in this exam to aid in the assessment of cardiac function. Exam performed portable in patient room. Left Ventricle Normal LV size. Severe concentric left ventricular hypertrophy. Left ventricular systolic function is normal. The estimated ejection fraction is 65 %. Stage 1 diastolic dysfunction. No regional wall motion abnormalities noted. Right Ventricle Normal RV size. Normal systolic function. Atria The left atrium is mildly enlarged. Normal right atrium. Mitral Valve Normal mitral valve. Tricuspid Valve Normal tricuspid valve. Aortic Valve Trisinus/trileaflet aortic valve. Pulmonic Valve Normal pulmonic valve. Great Vessels Normal aortic root. The pulmonary artery is normal size. Normal inferior vena cava. Pericardium/Pleural No pericardial effusion. MMode/2D Measurements Calculations LVIDd: 4.1 cm IVSd: 1.8 cm Ao root diam: 3.2 cm LVIDs: 1.9 cm LVPWd: 1.8 cm RVDd: 2.6 cm FS: 54.7 % ___ LAV(MOD-bp): 55.6 ml LVAd ap4: 22.4 cm2 LVAd ap2: 19.2 cm2 LAV(MOD-bp) Indexed: 24.3 ml/m2 LVLd ap4: 8.4 cm LVLd ap2: 8.0 cm LAV(MOD-sp2): 38.8 ml EDV(MOD-sp4): 53.9 ml EDV(MOD-sp2): 42.2 ml LAV(MOD-sp4): 71.8 ml EDV(sp4-el): 51.1 ml EDV(sp2-el): 39.5 ml LVAs ap4: 10.6 cm2 LVAs ap2: 9.5 cm2 LVLs ap4: 7.1 cm LVLs ap2: 6.8 cm ESV(MOD-sp4): 13.7 ml ESV(MOD-sp2): 12.1 ml ESV(sp4-el): 13.4 ml ESV(sp2-el): 11.2 ml EF(MOD-sp4): 74.6 % EF(MOD-sp2): 71.2 % EF(sp4-el): 73.8 % ___ SV(MOD-sp4): 40.2 ml SV(MOD-sp2): 30.1 ml SV(sp4-el): 37.7 ml ___ LA dimension(2D): 4.1 cm LA A4 area: 23.0 cm2 RA A4 area: 11.4 cm2 Time Measurements MV dec time: 0.22 sec Doppler Measurements Calculations MV E max arsen: 76.2 cm/sec Lat Peak E' Arsen: 6.8 cm/sec Med Peak E' Arsen: 6.4 cm/sec MV A max arsen: 91.1 cm/sec E/E' lat: 11.2 E/E' med: 11.9 MV E/A: 0.84 ___ MV dec slope: 341.8 cm/sec2 Ao V2 max: 196.2 cm/sec LV V1 max: 154.5 cm/sec Ao max P.4 mmHg LV V1 max P.5 mmHg ___ PA V2 max: 103.1 cm/sec ECHO/Echo Complete Interpretation Summary Normal LV size. Severe concentric left ventricular hypertrophy. Left ventricular systolic function is normal. The estimated ejection fraction is 65 %. Stage 1 diastolic dysfunction. Apical sparing noted on the myocardial strain pattern. Cannot completely exclude amyloid. The global longitudinal strain = -12.4% (abnormal). The global longitudinal strain is severely abnormal. Apical sparing noted on the myocardial strain pattern. Cannot completely exclude amyloid. Ordering Physician: Ludy Salazar Performed By: Lona Zepeda 10/07/22 1232 Date Natanael Dunn MD CC: Dr. Colton Rosario MD; Dr. Ludy Salazar MD Date Dictated: 10/07/2238 Date Transcribed: 10/07/22 1232 [employer] Supervisor: Signed Normal [facility] Emergency Department Summary on 10-06-2022 Emergency Department Summary [facility] Medical Records Department [address] [place] [address] Emergency Department Summary 10/06/22 MR#: [id number] Acct: [id number] Name: JASON MOORE Jr. Rep #: [id number] : 1970 51 From: Willie Terry DO PCP: Dr. Colton Rosario MD Status:ADM IN Location: [address] History of Present Illness Chief Complaint: Hypertension Detail of Chief Complaint: High blood pressure and abnormal EKG Informant: patient Narrative Narrative: Patient presents the emergency department with complaint of elevated blood pressure. Patient states that he was having a yearly checkup at the primary care physician's office where they noticed he had elevated blood pressure and they did an EKG which appeared abnormal so he was referred to the emergency department. Patient denies chest pain. He denies shortness of breath out of the ordinary other than he is put on some weight and he attributes some mild dyspnea to that. Patient has no heart history. Patient states that he was supposed to be on blood pressure medicine including hydrochlorothiazide and amlodipine but has not been taking it for months. Patient denies recent illness. 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 current occupational exposures/hazards: No Smoking Status: Current every day smoker tobacco type: cigarettes alcohol intake: current alcohol intake frequency: 3 or more drinks per day details: 3-4 beers and a few shots of whiskey per day on average substance use type: does not use ROS ROS ED Review of Systems ROS Unobtainable: other Constitutional Constitutional ED: Reports lethargy; Denies chills, fever(s), sweats or weight loss Eyes Eyes: Denies blurry vision, change in vision or diplopia ENT ENT ED: Denies rhinorrhea or sore throat Cardiovascular Cardiovascular: Denies chest pain, orthopnea or racing heartbeat Respiratory/Chest Respiratory/Chest: Reports dyspnea on exertion; Denies cough, dyspnea, orthopnea or sputum Gastrointestinal Gastrointestinal: Denies abdominal pain, diarrhea, nausea or vomiting Genitourinary Genitourinary ED: Denies dysuria, hematuria or urinary frequency Musculoskeletal Musculoskeletal: Denies arthralgias, back pain, myalgias or neck pain Integumentary Denies abscess, Abrasions or rash Neurologic Neurologic: Denies headache(s) or weakness Psychiatric Psychiatric: Denies anxiety, depression or suicidal thoughts Endocrine Endocrinology: Denies polydipsia, polyphagia or polyuria Hematologic/Lymphatic Hematologic/Lymphatic: Denies easy bleeding, easy bruising or lymphadenopathy Allergic/Immunologic Allergic/Immunologic ED: Denies mouth swelling, tongue swelling or urticaria EXAM Physical Exam Const Vital Signs: 10/06/22 08:08 10/06/22 08:42 10/06/22 09:22 Temperature 97.6 F L Temperature Source Temporal Pulse Rate 95 88 Respiratory Rate 14 Respiratory Pattern Normal Blood Pressure 186/125 H 199/130 H Blood Pressure Mean 145 153 Pulse Ox 98 Oxygen Delivery Method Room Air Positive well nourished and well developed General Appearance ED: well developed and NAD HEENT Reports TM's clear and moist mucous membranes normocephalic and atraumatic; Negative for trauma or tenderness Tympanic Membrane ED: Yes TM's clear Eyes PERRL and EOMs intact bilaterally General Eye ED: Negative for pale conjunctiva or scleral icterus Neck no lymphadenopathy, supple and no JVD General: Negative for tenderness Chest Wall inspection of chest normal and palpation of chest normal Chest: Negative for tenderness Resp normal respiratory effort and clear to auscultation bilaterally Effort and Inspection: Negative for respiratory distress or pain with movement Auscultation: Negative for rhonchi, wheezes or diminished lung sounds Cardio regular rate, regular rhythm, S1 normal heart sound, S2 normal heart sound and no murmurs Peripheral Pulses: pulses 2+ throughout GI normal to inspection, nondistended, normoactive bowel sounds, soft to palpation, non-tender, non- distended and no masses Back/Spine no CVA tenderness and no thoracic nor lumbar tenderness E (more content not included)... Normal [facility] H AND P Exam - [facility]iston 10-06-2022 H&P Exam - Hospitalist [facility] Medical Records Department [address] [place] [address] H P Exam - Hospitalist 10/06/22 1513 MR#: [id number] Acct: [id number] Name: JASON MOORE Jr. Rep #: [id number] : 1970 51 From: Ludy Salazar MD PCP: Dr. Colton Rosario MD Status:ADM IN Location: [place] [id number] HPI - General General Date of Admission: 10/06/22 Date of Service: 10/06/22 HPI Narrative JASON MOORE, is a 51 M with a PMH as outlined who presents via the ED on 10/06/2022 after being referred from his PCPs office with markedly elevated blood pressure. Patient has a history of high blood pressure but has not been compliant with his medication for at least 6 months. He states he was in his usual state of health and went to her PCP appointment because his made him go. When he went that his blood pressure was checked and his blood pressure was markedly elevated with a systolic over 200. He was therefore referred to the ED. He denied any headaches, blurred vision, chest pain, palpitations, dizziness, nausea vomiting or diarrhea. Review of systems otherwise negative. Vitals in the ED with blood pressure of 194/123, pulse rate of 75 respirate rate of 18 and he was on room air. CBC showed hemoglobin of 17.8 but was otherwise unremarkable. Chemistry was significant for potassium of 3.4 and creatinine of 1.36. Initial troponin was 49. Has been admitted to be managed for hypertensive urgency due to noncompliance. 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 current occupational exposures/hazards: No Smoking Status: Current every day smoker tobacco type: cigarettes alcohol intake: current alcohol intake frequency: 3 or more drinks per day details: 3-4 beers and a few shots of whiskey per day on average substance use type: does not use ROS Constitutional Constitutional: Denies anorexia, chills, fatigue, fever(s), malaise or weakness ENT HEENT: Denies dysphagia or headache(s) Cardiovascular Cardiovascular: Denies chest pain, dyspnea on exertion, edema, lightheadedness, orthopnea, palpitations, rapid heart rate or syncope Respiratory/Chest Respiratory/Chest: Denies cough, dyspnea, shortness of breath at rest or shortness of breath with exertion Gastrointestinal Gastrointestinal: Denies abdominal pain, constipation, nausea or vomiting Genitourinary Genitourinary: Denies burning urination or dysuria Musculoskeletal Musculoskeletal: Denies arthralgias Neurologic Neurologic: Denies confusion, dizziness, focal weakness, headache(s), seizures or syncope Psychiatric Psychiatric: Denies anxiety or depression Endocrine Endocrinology: Denies change in body appearance Vital Signs Vital Signs Vital Signs: 10/06/22 08:08 10/06/22 08:42 10/06/22 09:22 Temperature 97.6 F L Temperature Source Temporal Pulse Rate 95 88 Respiratory Rate 14 Respiratory Pattern Normal Blood Pressure 186/125 H 199/130 H Blood Pressure Mean 145 153 Pulse Ox 98 Oxygen Delivery Method Room Air 10/06/22 09:57 10/06/22 11:13 10/06/22 13:00 Temperature 97.6 F L Temperature Source Temporal Pulse Rate 74 88 75 Respiratory Rate 17 16 18 Respiratory Pattern Blood Pressure 206/124 H 188/110 H 194/123 H Blood Pressure Mean 151 136 146 Pulse Ox 96 Oxygen Delivery Method Room Air Room Air Weight Weight: 254 lb Body Mass Index (BMI) 37.5 Physical Exam Const alert, oriented x3 and no apparent distress General Appearance: cooperative HEENT normocephalic, head/scalp atraumatic, hearing grossly normal bilaterally and moist oral mucous membranes Mouth: oral and palatal mucosa normal Eyes PERRL and EOMs intact bilaterally Neck no lymphadenopathy and supple Resp normal respiratory effort, no retractions, no use of accessory muscles and clear to auscultation bilaterally Cardio regular rate, regular rhythm, S1 normal heart sound and S2 normal heart sound GI normal to inspection, nondistended, normoactive bowel sounds, soft to palpation, non-tender and non- distended Extremity normal to inspection, full ROM and no clubbi (more content not included)... Normal [facility] Hematocrit Auto (Bld) [Volum e fraction]Ordered By: Dr. Terry on 10-06-2022 Hematocrit (Bld) [Volume fraction] 50.5 % 40-54 [facility] [id number] 10-06-2022 TROPONIN-I HS 27 pg/mL Normal 3.0-78.0 [facility] Comment on above: Order Comment: Comme nts: SPECIMEN #2'TROP' Serial specimen #1, #2 or #3: 2 Result Comment: Plea se Note: New Test Units and Gender Specific Reference Ranges. For more information see Policy Stat Procedure [place] High Sensitivity Troponin (TNIH) and attachments. Performed By: #### L 500.2500, L100.0100 #### [facility] [address] [facility] [place], [place], [id number] [phone] TROPONIN-I HS 29 pg/mL Normal 3.0-78.0 [facility] Comment on above: Order Comment: 'TROP ' Serial specimen #1, #2 or #3: 1 Result Comment: Plea se Note: New Test Units and Gender Specific Reference Ranges. For more information see Policy Stat Procedure [place] High Sensitivity Troponin (TNIH) and attachments. Performed By: #### L 500.2500, L100.0100 #### [facility] [address] [place], [address] TROPONIN-I HS 49 pg/mL Normal 3.0-78.0 [facility] Comment on above: Order Comment: 'TROP ' Serial specimen #1, #2 or #3: 1 Result Comment: Plea se Note: New Test Units and Gender Specific Reference Ranges. For more information see Policy Stat Procedure [place] High Sensitivity Troponin (TNIH) and attachments. Performed By: #### L 500.2500, L100.0100 #### [facility] [address] [place], [address] Laboratory - Chemistry and C hemistry - challengeOrdered By: Dr. Terry on 10-06-2022 CO2 [Moles/Vol] 25.0 mmol/L 21.0-32.0 [facility] Urea nitrogen/Creatinine [Mass ratio] 11.0 mg/mg 10-20 [facility] Laboratory - Hematology and Cell countsOrdered By: Dr. Terry on 10-06-2022 Erythrocyte distribution width (RBC) [Entitic vol] 41.6 fL 35.1-43.9 [facility] Erythrocyte distribution width (RBC) [Ratio] 11.9 % 11.6-14.6 [facility] Immature granulocytes/100 WBC (Bld) 0.400 % 0.0-0.9 [facility] Comment on above: IG% - Immature Granu locytes (promyelocytes, myelocytes and metamyelocytes) > 1% indicates that a LEFT SHIFT is Present. MCH (RBC) [Entitic mass] 33.8 pg 27.0-32.0 [facility] Nucleated RBC/100 WBC (Bld) [Ratio] 0 % 0-5 [facility] MCHC Auto (RBC) [Mass/Vol]Or dered By: Dr. Terry on 10-06-2022 MCHC (RBC) [Mass/Vol] 35.2 g/dL 32-36 [facility] No Panel InformationOrdered By: Dr. Salazar on 10-06-2022 Troponin I High Sensitivity 27 pg/mL 3.0-78.0 [facility] Comment on above: Please Note: New Vian[place] t Units and Gender Specific Reference Ranges. For more information see Policy Stat Procedure [place] High Sensitivity Troponin (TNIH) and attachments. No Panel InformationOrdered By: Dr. Terry on 10-06-2022 Estimated Creatinine Clearance Calc 65.70 ml/min [facility] Estimated GFR (MDRD) Amer 71 mL/min >60 [facility] Comment on above: GFR Calc Estimated GFR (MDRD) Non-Af Amer 59 mL/min >60 [facility] Comment on above: Non- GFR Calc Troponin I High Sensitivity 49 pg/mL 3.0-78.0 [facility] Comment on above: Please Note: New [place]ian[place] t Units and Gender Specific Reference Ranges. For more information see Policy Stat Procedure [place] High Sensitivity Troponin (TNIH) and attachments. Platelets bldOrdered By: Dr. Terry on 10-06-2022 Platelets (Bld) [#/Vol] 212 10*3/uL 150-450 [facility] Serum or plasma calcium susie urement (mass/volume)Ordered By: Dr. Terry on 10-06-2022 Calcium [Mass/Vol] 9.6 mg/dL 8.5-10.1 [facility] Serum or plasma creatinine m easurement (mass/volume)Ordered By: Dr. Terry on 10-06-2022 Creatinine [Mass/Vol] 1.36 mg/dL 0.70-1.30 [facility] Comment on above: The validity of the calculated GFR & GFRAA in patients over 70 years has not been determined. Clinical correlation is essential. Serum or plasma urea nitroge n measurement (mass/volume)Ordered By: Dr. Terry on 10-06-2022 Urea nitrogen [Mass/Vol] 15 mg/dL 7-18 [facility] Thin prep Papanicolaou smear with manual screeningOrdered By: Dr. Terry on 10-06-2022 Thin prep Papanicolaou smear with manual screening 7 5-15 [facility] Absolute lymphocyte counton 03-03-2022 Lymphocytes Auto (Unsp spec) [#/Vol] 1.10 10*3/uL 0.83-4.51 [facility] Work Phone: Basophil percentageon 2021 Basophils/100 WBC (Bld) 0.7 % 0-1 [facility] Work Phone: Bilirubin [Mass/Vol] 0.40 mg/dL 0.20-1.00 [facility] Work Phone: Comment on above: For patients on eltr ombopag therapy, use of Dimension [place] TBIL is not recommended. Chloride [Moles/Vol] 108 mmol/L 98-107 [facility] Work Phone: Eosinophils/100 WBC (Bld) 0.6 % 0-5 [facility] Work Phone: Glucose [Mass/Vol] 107 mg/dL 74-106 [facility] Work Phone: Comment on above: Fasting Glucose resu lt from 100 to 125 mg/dL suggests IMPAIRED HOMEOSTASIS per A.D.A. criteria. Neutrophils (Bld) [#/Vol] 6.3 10*3/uL 2.0-7.7 [facility] Work Phone: Neutrophils/100 WBC (Bld) 74.3 % 47-70 [facility] Work Phone: Potassium [Moles/Vol] 3.5 mmol/L 3.5-5.1 [facility] Work Phone: Protein [Mass/Vol] 6.6 g/dL 6.4-8.2 [facility] Work Phone: Sodium [Moles/Vol] 135 mmol/L 136-145 [facility] Work Phone: WBC (Bld) [#/Vol] 8.5 10*3/uL 4.4-11.0 [facility] Work Phone: Blood erythrocytes count (nu mber/volume)on 03-03-2022 RBC (Bld) [#/Vol] 3.72 10*6/uL 4.6-6.2 [facility] Work Phone: Blood hemoglobin measurement (mass/volume)on 03-03-2022 Hemoglobin (Bld) [Mass/Vol] 12.5 g/dL 13.0-16.5 [facility] Work Phone: Blood lymphocytes/100 leukoc yteson 03-03-2022 Lymphocytes/100 WBC (Bld) 12.9 % 19-41 [facility] Work Phone: Blood monocytes/100 leukocyt eson 03-03-2022 Monocytes/100 WBC (Bld) 8.8 % 0-10 [facility] Work Phone: Blood platelet mean volumeon 03-03-2022 Platelet mean volume (Bld) [Entitic vol] 11.6 fL 6.2-12.0 [facility] Work Phone: [phone] Determination of erythrocyte mean corpuscular volume (MCV)on 03-03-2022 MCV (RBC) [Entitic vol] 97.3 fL 80-94 [facility] Work Phone: Hematocrit Auto (Bld) [Volum e fraction]on 03-03-2022 Hematocrit (Bld) [Volume fraction] 36.2 % 40-54 [facility] Work Phone: Laboratory - Chemistry and C hemistry - challengeon 03-03-2022 ALP [Catalytic activity/Vol] 57 U/L 45-117 [facility] Work Phone: ALT [Catalytic activity/Vol] 79 U/L 16-61 [facility] Work Phone: CO2 [Moles/Vol] 19.0 mmol/L 21.0-32.0 [facility] Work Phone: Globulin (S) [Mass/Vol] 4.6 g/dL 2.2-4.2 [facility] Work Phone: Urea nitrogen/Creatinine [Mass ratio] 14.5 mg/mg 10-20 [facility] Work Phone: Laboratory - Hematology and Cell countson 03-03-2022 Erythrocyte distribution width (RBC) [Entitic vol] 44.9 fL 35.1-43.9 [facility] Work Phone: Erythrocyte distribution width (RBC) [Ratio] 12.6 % 11.6-14.6 [facility] Work Phone: Immature granulocytes/100 WBC (Bld) 2.700 % 0.0-0.9 [facility] Work Phone: Comment on above: IG% - Immature Granu locytes (promyelocytes, myelocytes and metamyelocytes) > 1% indicates that a LEFT SHIFT is Present. MCH (RBC) [Entitic mass] 33.6 pg 27.0-32.0 [facility] Work Phone: Nucleated RBC/100 WBC (Bld) [Ratio] 0 % 0-5 [facility] Work Phone: MCHC Auto (RBC) [Mass/Vol]on 03-03-2022 MCHC (RBC) [Mass/Vol] 34.5 g/dL 32-36 [facility] Work Phone: No Panel Informationon 03-03 Estimated Creatinine Clearance Calc 64.75 ml/min [facility] Work Phone: Estimated GFR (MDRD) Amer 70 mL/min >60 [facility] Work Phone: Comment on above: GFR Calc Estimated GFR (MDRD) Non-Af Amer 58 mL/min >60 [facility] Work Phone: Comment on above: Non- GFR Calc Platelets bldon 03-03-2022 Platelets (Bld) [#/Vol] 211 10*3/uL 150-450 [facility] Work Phone: Serum or plasma albumin susie urement (mass/volume)on 03-03-2022 Albumin [Mass/Vol] 2.0 g/dL 3.2-5.0 [facility] Work Phone: Serum or plasma albumin/glob ulin mass ratioon 03-03-2022 Albumin/Globulin [Mass ratio] 0.4 {ratio} 0.9-2.4 [facility] Work Phone: Serum or plasma calcium susie urement (mass/volume)on 03-03-2022 Calcium [Mass/Vol] 9.1 mg/dL 8.5-10.1 [facility] Work Phone: Serum or plasma creatinine m easurement (mass/volume)on 03-03-2022 Creatinine [Mass/Vol] 1.38 mg/dL 0.70-1.30 [facility] Work Phone: Comment on above: The validity of the calculated GFR & GFRAA in patients over 70 years has not been determined. Clinical correlation is essential. Serum or plasma urea nitroge n measurement (mass/volume)on 03-03-2022 Urea nitrogen [Mass/Vol] 20 mg/dL 7-18 [facility] Work Phone: Thin prep Papanicolaou smear with manual screeningon 03-03-2022 Thin prep Papanicolaou smear with manual screening 111 U/L 15-37 [facility] Work Phone: [phone] Thin prep Papanicolaou smear with manual screening 8 5-15 [facility] Work Phone: Basophil percentageon 2021 Basophil percentage 2.5 mg/dL 2.5-4.9 [facility] Work Phone: Laboratory - Chemistry and C hemistry - challengeon 03-02-2022 Magnesium [Mass/Vol] 2.1 mg/dL 1.6-2.6 [facility] Work Phone: No Panel Informationon 03-02 Thyroid Stimulating Hormone (TSH) 2.67 uIU/mL 0.358-3.74 [facility] Work Phone: [phone] Absolute lymphocyte counton 03-01-2022 Lymphocytes Auto (Unsp spec) [#/Vol] 0.90 10*3/uL 0.83-4.51 [facility] Work Phone: Acetaminophen level (mass/vo lume)on 03-01-2022 Acetaminophen (Unsp spec) [Mass/Vol] < 2.0 ug/mL 10.0-30.0 [facility] Work Phone: Assessment of wrist artery p atency prior to arterial punctureon 03-01-2022 Arterial patency Wrist artery --pre arterial puncture Positive [facility] Work Phone: [phone] Base excesson 03-01-2022 Base excess Calc (BldV) [Moles/Vol] -8 mmol/L -2-2 [facility] Work Phone: Basophil percentageon 2021 Basophil percentage 0-5 SEEN /hpf 0-5 [facility] Work Phone: [phone] Basophil percentage 16.7 mmol/L 22-26 [facility] Work Phone: Basophils/100 WBC (Bld) 96 % 95-99 [facility] Work Phone: Basophils/100 WBC (Bld) 0.6 % 0-1 [facility] Work Phone: Bilirubin [Mass/Vol] 0.80 mg/dL 0.20-1.00 [facility] Work Phone: Comment on above: For patients on eltr ombopag therapy, use of Dimension [place] TBIL is not recommended. Chloride [Moles/Vol] 97 mmol/L 98-107 [facility] Work Phone: Eosinophils/100 WBC (Bld) 0.4 % 0-5 [facility] Work Phone: Glucose [Mass/Vol] 132 mg/dL 74-106 [facility] Work Phone: Comment on above: Fasting Glucose resu lt greater than or equal to 126 mg/dL suggests DIABETES MELLITUS per A.D.A. criteria. Neutrophils (Bld) [#/Vol] 14.4 10*3/uL 2.0-7.7 [facility] Work Phone: Neutrophils/100 WBC (Bld) 85.3 % 47-70 [facility] Work Phone: Potassium [Moles/Vol] 2.8 mmol/L 3.5-5.1 [facility] Work Phone: Protein [Mass/Vol] 8.1 g/dL 6.4-8.2 [facility] Work Phone: Sodium [Moles/Vol] 131 mmol/L 136-145 [facility] Work Phone: WBC (Bld) [#/Vol] 16.9 10*3/uL 4.4-11.0 [facility] Work Phone: [phone] Bilirubin Test strip Ql (U)o n 03-01-2022 Bilirubin Ql (U) Negative Negative [facility] Work Phone: [phone] Blood erythrocytes count (nu mber/volume)on 03-01-2022 RBC (Bld) [#/Vol] 4.91 10*6/uL 4.6-6.2 [facility] Work Phone: [phone] Blood hemoglobin measurement (mass/volume)on 03-01-2022 Hemoglobin (Bld) [Mass/Vol] 16.5 g/dL 13.0-16.5 [facility] Work Phone: Blood lymphocytes/100 leukoc yteson 03-01-2022 Lymphocytes/100 WBC (Bld) 5.3 % 19-41 [facility] Work Phone: Blood monocytes/100 leukocyt eson 03-01-2022 Monocytes/100 WBC (Bld) 7.0 % 0-10 [facility] Work Phone: Blood platelet mean volumeon 03-01-2022 Platelet mean volume (Bld) [Entitic vol] 11.2 fL 6.2-12.0 [facility] Work Phone: [phone] CO2 (BldA) [Partial pressure ]on 03-01-2022 CO2 (Bld) [Partial pressure] 25.2 mm[Hg] 35-45 [facility] Work Phone: [phone] Determination of erythrocyte mean corpuscular volume (MCV)on 03-01-2022 MCV (RBC) [Entitic vol] 97.1 fL 80-94 [facility] Work Phone: [phone] Direct bilirubinon Bilirubin.direct [Mass/Vol] 0.33 mg/dL 0.00-0.30 [facility] Work Phone: [phone] Hematocrit Auto (Bld) [Volum e fraction]on 03-01-2022 Hematocrit (Bld) [Volume fraction] 47.7 % 40-54 [facility] Work Phone: [phone] Ketones Test strip Ql (U)on 03-01-2022 Ketones Ql (U) Negative Negative [facility] Work Phone: Laboratory - Chemistry and C hemistry - challengeon 03-01-2022 ALP [Catalytic activity/Vol] 78 U/L 45-117 [facility] Work Phone: ALT [Catalytic activity/Vol] 79 U/L 16-61 [facility] Work Phone: CO2 [Moles/Vol] 17.0 mmol/L 21.0-32.0 [facility] Work Phone: [phone] Globulin (S) [Mass/Vol] 5.5 g/dL 2.2-4.2 [facility] Work Phone: [phone] Natriuretic peptide B (Bld) [Mass/Vol] 23.9 pg/mL 0-100 [facility] Work Phone: [phone] Urea nitrogen/Creatinine [Mass ratio] 9.8 mg/mg 10-20 [facility] Work Phone: Laboratory - Drug toxicology on 03-01-2022 Amphetamines Ql (U) Negative <1000 ng/mL [facility] Work Phone: [phone] Benzodiazepines Ql (U) Negative < 200 ng/mL [facility] Work Phone: [phone] Cannabinoids Screen Ql (U) Negative < 50 ng/mL [facility] Work Phone: Cocaine Ql (U) Negative < 300 ng/mL [facility] Work Phone: Opiates Ql (U) Negative < 300 ng/mL [facility] Work Phone: Laboratory - Hematology and Cell countson 03-01-2022 Erythrocyte distribution width (RBC) [Entitic vol] 43.2 fL 35.1-43.9 [facility] Work Phone: Erythrocyte distribution width (RBC) [Ratio] 11.9 % 11.6-14.6 [facility] Work Phone: [phone] Immature granulocytes/100 WBC (Bld) 1.400 % 0.0-0.9 [facility] Work Phone: Comment on above: IG% - Immature Granu locytes (promyelocytes, myelocytes and metamyelocytes) > 1% indicates that a LEFT SHIFT is Present. MCH (RBC) [Entitic mass] 33.6 pg 27.0-32.0 [facility] Work Phone: Nucleated RBC/100 WBC (Bld) [Ratio] 0 % 0-5 [facility] Work Phone: MCHC Auto (RBC) [Mass/Vol]on 03-01-2022 MCHC (RBC) [Mass/Vol] 34.6 g/dL 32-36 [facility] Work Phone: Mucus LM Ql (Urine sed)on Mucus Ql (Urine sed) 0 SEEN /hpf [facility] Work Phone: Nitrite Test strip Ql (U)on 03-01-2022 Nitrite Ql (U) Negative Negative [facility] Work Phone: No Panel Informationon 03-01 MDMA (Ecstasy) Screen Negative < 500 ng/mL [facility] Work Phone: Urine Barbiturates Screen Negative < 200 ng/mL [facility] Work Phone: Urine Drug Screen Comment [facility] Work Phone: Comment on above: CONFIRMATORY TESTING FOR ALL POSITIVE URINE DRUG SCREENRESULTS WILL ONLY BE SENT OUT UPON PHYSICIAN ORDER. VISTA Urine Drug Screen methods provide only preliminaryanalytical test results. A more specific alternate chemicalmethod must be used in order to obtain a confirmedanalytical result. Gas chromatography/mass spectrometery(GC/MS) is the preferred confirmatory method. Clinicalconsideration and professional judgement should be appliedto any drug of abuse test result, particularly whenpreliminary positive results are used. URINE TCA TESTING MUST BE ORDERED SEPARATELY. USE TESTMNEMONIC: [facility] Urine Methadone Screen Negative < 300 ng/mL [facility] Work Phone: Troponin I High Sensitivity 48 pg/mL 3.0-78.0 [facility] Work Phone: Comment on above: Please Note: New [place]ian[place] t Units and Gender Specific Reference Ranges. For more information see Policy Stat Procedure [place] High Sensitivity Troponin (TNIH) and attachments. Blood Gas Liter Flow 2.0 /min [facility] Work Phone: Blood Gas Sample Site R Radial [facility] Work Phone: Blood Gas Specimen Type ART [facility] Work Phone: Blood Gas Total CO2 18 mmol/L [facility] Work Phone: Oxygen Delivery Device Cannula [facility] Work Phone: D-Dimer Quantitative (PE/DVT) 3.16 FEU/ug/m 0.27-0.49 [facility] Work Phone: Comment on above: D-Dimer ELEVATED (>0 .49): Additional studies and clinicalassessments are indicated to conclude diagnosis of:Deep Vein Thrombosis (DVT) or Pulmonary Embolism (PE)CRITICAL VALUE VERIFIED. CALLED TO [id number]/03/22 1104 Maria Dolores Gonzalez.RESULTS READ BACK BY SAME . Estimated Creatinine Clearance Calc 36.18 ml/min [facility] Work Phone: Estimated GFR (MDRD) Amer 35 mL/min >60 [facility] Work Phone: Comment on above: GFR Calc Estimated GFR (MDRD) Non-Af Amer 29 mL/min >60 [facility] Work Phone: Comment on above: Non- GFR Calc Troponin I High Sensitivity 44 pg/mL 3.0-78.0 [facility] Work Phone: Comment on above: Please Note: New [place] t Units and Gender Specific Reference Ranges. For more information see Policy Stat Procedure [place] High Sensitivity Troponin (TNIH) and attachments. Oxygen (BldA) [Partial press ure]on 03-01-2022 Oxygen (Bld) [Partial pressure] 79 mmHG 75-100 [facility] Work Phone: Platelets bldon 03-01-2022 Platelets (Bld) [#/Vol] 198 10*3/uL 150-450 [facility] Work Phone: Protein Test strip Ql (U)on 03-01-2022 Protein Ql (U) 100 mg/dl Negative [facility] Work Phone: Serum or plasma albumin susie urement (mass/volume)on 03-01-2022 Albumin [Mass/Vol] 2.6 g/dL 3.2-5.0 [facility] Work Phone: Serum or plasma calcium susie urement (mass/volume)on 03-01-2022 Calcium [Mass/Vol] 9.2 mg/dL 8.5-10.1 [facility] Work Phone: Serum or plasma creatinine m easurement (mass/volume)on 03-01-2022 Creatinine [Mass/Vol] 2.55 mg/dL 0.70-1.30 [facility] Work Phone: Comment on above: The validity of the calculated GFR & GFRAA in patients over 70 years has not been determined. Clinical correlation is essential. Serum or plasma salicylates measurement (mass/volume)on 03-01-2022 Salicylates [Mass/Vol] mg/dL 2.8-20.0 [facility] Work Phone: Serum or plasma urea nitroge n measurement (mass/volume)on 03-01-2022 Urea nitrogen [Mass/Vol] 25 mg/dL 7-18 [facility] Work Phone: Squamous epithelial cells de tection in urine sediment by light microscopyon 03-01-2022 Epithelial cells.squamous LM Ql (Urine sed) 0-5 SEEN /hpf 0-5 [facility] Work Phone: Thin prep Papanicolaou smear with manual screeningon 03-01-2022 Thin prep Papanicolaou smear with manual screening 141 U/L 15-37 [facility] Work Phone: Thin prep Papanicolaou smear with manual screening 17 5-15 [facility] Work Phone: Urine blood detectionon RBC Ql (U) 250 /ul Negative [facility] [facility] Work Phone: RBC Ql (U) 10-25 SEEN /hpf 0-5 [facility] Work Phone: Urine clarityon 03-01-2022 Clarity (U) Sl. Cloudy Clear [facility] Work Phone: [phone] Urine coarse granular cast d etectionon 03-01-2022 Coarse Granular Casts LM Ql (Urine sed) 5-10 SEEN /lpf 0-5 /lpf [facility] Work Phone: Urine color determinationon 03-01-2022 Color (U) Yellow Yellow [facility] Work Phone: [phone] Urine glucose detectionon Glucose Ql (U) Normal mg/dl Normal [facility] Work Phone: [phone] Urine leukocyte esterase det ection by dipstickon 03-01-2022 Leukocyte esterase Test strip Ql (U) Negative Negative [facility] Work Phone: [phone] Urine pHon 03-01-2022 pH (U) 5.0 [pH] 5.0 - 8.0 [facility] Work Phone: Urine phencyclidine (PCP) de tectionon 03-01-2022 Phencyclidine Ql (U) Negative < 25 ng/mL [facility] Work Phone: Urine sediment bacteria coun t by microscopy (number/high power field)on 03-01-2022 Bacteria LM.HPF (Urine sed) [#/Area] 1 /[HPF] None Seen [facility] Work Phone: Urine specific gravity measu rementon 03-01-2022 Specific gravity (U) [Rel density] 1.020 1.002-1.030 [facility] Work Phone: Urobilinogen Auto test strip Ql (U)on 03-01-2022 Urobilinogen Ql (U) Normal mg/dl Normal [facility] Work Phone: pH measurementon 03-01-2022 pH (Unsp spec) 7.43 [pH] 7.35-7.45 [facility] Work Phone: XR LUMBAR GENERAL 3V AP/LAT/ L5-S1on 02-26-2022 [facility] XR Lumbar spine 3 Viewson IMPRESSION: Status p ost L5 and S1 anterior spinal fusion. Lumbar spine degenerative changes with L4-5 disc space narrowing. [employer] Supervisor: PSCB Transcribe Date/Time: Feb 26 2022 10:26A Dictated by : NORTH LABOY MD This examination was interpreted and the report reviewed and electronically signed by: NORTH LABOY MD on Feb 26 2022 10:29AM EST ZZZ_DO_NOT _USE_DIVIS ION OF RADIOLOGY * * *Final Report* * * DATE OF EXAM: Feb 26 2022 10:21AM WOX [id number] - XR LUMBAR 3V AP/LAT/L5-S1 / PROCEDURE REASON: Acute left-sided low back pain with left-sided sciatica * * * * Physician Interpretation * * * * EXAM TITLE: XR LUMBAR 3V AP/LAT/L5-S1 EXAM DATE/TIME: 02/26/2022 10:21 AM COMPARISON: None. CLINICAL INDICATION/HISTORY: Low back pain. TECHNIQUE: AP, lateral and cone down lateral views of the lumbar spine are presented. FINDINGS: Status post L5 and S1 anterior spinal fusion, with disc spacer in place. There appears be minimal L4 on L5 anterolisthesis. L4-5 disc space narrowing is demonstrated, with osteophyte formation. There is facet arthrosis in the lower lumbar spine. Kissing spine seen on lateral view. ZZZ_DO_NOT _USE_DIVIS ION OF RADIOLOGY Provider, [facility] - 02/26/2022 * * *Final Report* * * DATE OF EXAM: Feb 26 2022 10:21AM WOX [id number] - XR LUMBAR 3V AP/LAT/L5-S1 / PROCEDURE REASON: Acute left-sided low back pain with left-sided sciatica * * * * Physician Interpretation * * * * EXAM TITLE: XR LUMBAR 3V AP/LAT/L5-S1 EXAM DATE/TIME: 02/26/2022 10:21 AM COMPARISON: None. CLINICAL INDICATION/HISTORY: Low back pain. TECHNIQUE: AP, lateral and cone down lateral views of the lumbar spine are presented. FINDINGS: Status post L5 and S1 anterior spinal fusion, with disc spacer in place. There appears be minimal L4 on L5 anterolisthesis. L4-5 disc space narrowing is demonstrated, with osteophyte formation. There is facet arthrosis in the lower lumbar spine. Kissing spine seen on lateral view. IMPRESSION IMPRESSION: Status post L5 and S1 anterior spinal fusion. Lumbar spine degenerative changes with L4-5 disc space narrowing. [employer] Supervisor: LAURENT Transcribe Date/Time: Feb 26 2022 10:26A Dictated by : NORTH LABOY MD This examination was interpreted and the report reviewed and electronically signed by: NORTH LABOY MD on Feb 26 2022 10:29AM EST [facility] Radiology Study observation (narrative) [facility] XR Lumbar spine 3 ViewsOrder ed By: Ccf Provider on 02-26-2022 [facility] CNCOon 09-01-2021 CNCO Letter Text Normal [facility] CNCOon 08-28-2021 CNCO Letter Text Normal [facility] CNOVon 08-28-2021 CNOV Office Visit (AGPOB3 ) -- JASON MOORE ([id number]) 1970 M Date Time Provider Department 08/28/21 10:45 AM FLIP GONZALEZ AGPOB3 During your visit today, we recorded the following information about you: Respiration Weight Height 18/minute 115.2 kg 1.753 m Flip Gonzalez MD 08/28/2021 11:26 AM Signed Flip Gonzalez M.D. [facility] Orthopedics - Orthopedic Spine Surgeon [address] [place] [address], [address] [facility] [address] [address], [facility] [id number], [facility], [facility] [address] Phone: [phone] ([facility]) FAX: [phone] ([place]) Date of visit: August 28, 2021 Patient Name: Mr.Henry Clayton Moore Date of : 1970 Current Age: [age] year old Sex: male MRN/E# [id number] Last Office Visit: Visit date not found Postop Cervical ASSESSMENT: Surgery Date: 06/17/21 Surgery Type: C5-C7 ACDF Incision: Healed PLAN: 1.) Activity: As tolerated. 2.) Brace: None 3.) Scripts: None required Proper use and precautions discussed for prescribed medications. 5.) Follow up: 3 months 6.) Comments: Doing well, much improved strength CC: Neck surgery HPI: Brace type: None Postop pain control?: None Postop pain control current medications: None Progress: Patient is extremely pleased with his progress. Reports significant improvement of pre-operative symptoms. Reports improved strength of right arm. He is able to make a three-pointer basketball shot which he could not do before surgery. He has no complaints at today's visit. ROS: No fevers, chills night sweats, excessive drainage from incision, new neurologic issues. No chest pain, shortness of breath, leg swelling, changes in bowel/bladder. No dysphagia (or within acceptable range for postoperative stage). PHYSICAL EXAM: Neck: Well approximated. No erythema, drainage, or swelling noted. Appearance within normal limits for stage of surgery. Appearance within normal limits for stage of surgery. Trachea midline Upper extremities: Sensation: Intact to light touch Upper Extremity Strength Exam Right Left Deltoid 5 5 Biceps 5 5 Triceps 5 5 Wrist Extension 5 5 Interossei 5 5 Lower Extremity Strength Exam Right Left Psoas 5 5 Quadriceps 5 5 DF 5 5 EHL 5 5 PF 5 5 Lower extremities: Stable examination. No swelling. No calf tenderness. TESTING/IMAGING: Cervical lateral and AP Alignment: Stable. Hardware: Intact. No gross failure. C5-C7 anterior cervical plate and screws in stable position Fusion status: No mc pseudoarthrosis Referring Provider: FLIP GONZALEZ [[id number]] Allergies As of Date: 08/28/2021 Noted Allergy Reaction ATIVAN (LORAZEPAM) 06/10/2016 8 - GI Upset PAXIL (PAROXETINE HCL) 12/25/2015 8 - GI Upset Comments: diarrhea ZOLOFT (SERTRALINE) 06/10/2016 8 - GI Upset Date Reviewed: 08/28/2021 Reviewed by: Teodoro Davila - Fully Assessed Reason for Visit: Post Op [174] Primary Visit Diagnosis:Cervical radiculopathy [M54.12] Order(s):XR CERV GENERAL 2V AP/LAT [[id number]] Order #: [id number] Prescriptions as of 08/28/2021 - cyclobenzaprine (FLEXERIL) 5 mg tablet Take 1 tablet by mouth three times daily as needed for muscle spasm. - metoprolol succinate ER (TOPROL XL) 50 mg 24 hr tablet Take 1 tablet by mouth once daily. - gabapentin (NEURONTIN) 300 mg capsule Take 1 capsule by mouth three times daily for 90 days. - lisinopril-hydroCHLOROthia zide (PRINZIDE,ZESTORETIC) 20-12.5 mg per tablet Take 1 tablet by mouth every morning. Problem List As Of Date 08/28/2021 Noted Resolved Left-sided low back pain without sciatica [M54.*07/03/2011 Essential hypertension with goal blood pressure*06/28/2014 Palpitations [R00.2] 06/28/2014 Mixed hyperlipidemia [E78.2] 06/28/2014 Well adult exam [Z00.00] 06/28/2014 Neurofibroma [D36.10] 08/13/2014 Family history of malignant neoplasm of gastroi*09/28/2014 09/28/2014 Agoraphobia [F40.00] 01/24/2015 Situational anxiety [F41.8] 01/24/2015 Fatty liver [K76.0] 03/28/2016 Elevated LFTs [R79.89] 03/28/2016 Chronic bilateral low back pain without sciatic*06/10/2016 Prostate cancer screening [Z12.5] 07/10/2016 Smoker [F17.200] 07/10/2016 Alcohol use [Z72.89] 07/10/2016 Obesity, Class II, BMI 35-39.9 [E66.9] 12/16/2020 Cervical radiculopathy [M54.12] 12/16/2020 Acute pain of right shoulder [M25.511] 12/18/2020 03/28/2021 ABDULAZIZ (generalized anxiety disorder) [F41.1] 03/17/2021 Spinal stenosis of cervical region [M48.02] 03/26/2021 Tachycardia, unspecified [R00.0] JOSELITO (obstructive sleep apnea) [G47.33] Status post cervical discectomy [Z98.890] 06/17/2021 06/18/2021 Encounter Status:Closed by FLIP GONZALEZ on 08/28/21 [facility] CNOVon 07-07-2021 CNOV Office Visit (AGHWN) -- JASON MOORE ([id number]) 1970 M Date Time Provider Department 07/07/21 1:15 PM FLIP GONZALEZ AGHWN During your visit today, we recorded the following information about you: Respiration Weight Height 17/minute 115.2 kg 1.753 m Lola Hernandez 07/07/2021 4:01 PM Signed REVIEW OF SYSTEMS: GENERAL: Well developed, well nourished. No acute distress PAIN: Pain neck CARDIOVASCULAR: HTN MSK: Negative for joint swelling SKIN: Negative for lesions, rash, itching, metal sensitivity NEURO: Negative for seizure, trauma, numbness/tingling of extremities. ENDOCRINE: Negative for diabetic associated symptoms HEMATOLOGY: Negative for excessive bleeding, clots, bleeding disorders. Flip Gonzalez MD 07/07/2021 4:01 PM Signed Jason Moore 50 year old male Employer And Job Title: None on file Years Of Education Completed: Not specified Marital Status: Flip Gonzalez MD [facility] Orthoped[facility] Spine Surgery Postop Cervical ASSESSMENT: Surgery Date: 06/17/21 Surgery Type: C5-C7 ACDF Pre-operative symptoms: right arm pain, numbness, and weakness PLAN: 1.) Activity: As tolerated and Avoid bending, lifting > 10 lbs. 2.) Brace: for comfort 3.) Scripts: none required Proper use and precautions discussed for prescribed medications. 5.) Follow up: 6 weeks CC: Neck surgery HPI: Brace type: Farina Postop pain control?: Controlled Postop pain control current medications: Acetaminophen Progress: Patient reports resolution of right arm symptoms. He reports increased strength in right arm. Denies swallowing issues. Reports mild posterior neck pain with extension (2/10). Otherwise patient is doing well and has no complaints today. ROS: No fevers, chills night sweats, excessive drainage from incision, new neurologic issues. No chest pain, shortness of breath, leg swelling, changes in bowel/bladder. No dysphagia (or within acceptable range for postoperative stage). PHYSICAL EXAM: Neck: Well approximated. No erythema, drainage, or swelling noted. Appearance within normal limits for stage of surgery. Appearance within normal limits for stage of surgery. Trachea midline Upper extremities: Sensation: Intact to light touch Upper Extremity Strength Exam Right Left Deltoid 5 5 Biceps 5 5 Triceps 5 5 Wrist Extension 5 5 Interossei 5 5 Lower Extremity Strength Exam Right Left Psoas 5 5 Quadriceps 5 5 DF 5 5 EHL 5 5 PF 5 5 Lower extremities: Stable examination. No swelling. No calf tenderness. TESTING/IMAGING: Cervical lateral and AP Alignment: Stable compared to previous radiographs Hardware: Intact. No gross failure. C5-C7 ACDF with interbodies. Fusion status: No mc pseudoarthrosis Referring Provider: FLIP GONZALEZ [[id number]] Allergies As of Date: 07/07/2021 Noted Allergy Reaction ATIVAN (LORAZEPAM) 06/10/2016 8 - GI Upset PAXIL (PAROXETINE HCL) 12/25/2015 8 - GI Upset Comments: diarrhea ZOLOFT (SERTRALINE) 06/10/2016 8 - GI Upset Date Reviewed: 07/07/2021 Reviewed by: Lola Hernandez - Fully Assessed Reason for Visit: Post Op [174] Primary Visit Diagnosis:Cervical radiculopathy [M54.12] Order(s):XR CERV GENERAL 2V AP/LAT [[id number]] Order #: [id number] Prescriptions as of 07/21/2021 - cyclobenzaprine (FLEXERIL) 5 mg tablet Take 1 tablet by mouth three times daily as needed for muscle spasm. - metoprolol succinate ER (TOPROL XL) 50 mg 24 hr tablet Take 1 tablet by mouth once daily. - gabapentin (NEURONTIN) 300 mg capsule Take 1 capsule by mouth three times daily for 90 days. - lisinopril-hydroCHLOROthia zide (PRINZIDE,ZESTORETIC) 20-12.5 mg per tablet Take 1 tablet by mouth every morning. Problem List As Of Date 07/07/2021 Noted Resolved Left-sided low back pain without sciatica [M54.*07/03/2011 Essential hypertension with goal blood pressure*06/28/2014 Palpitations [R00.2] 06/28/2014 Mixed hyperlipidemia [E78.2] 06/28/2014 Well adult exam [Z00.00] 06/28/2014 Neurofibroma [D36.10] 08/13/2014 Family history of malignant neoplasm of gastroi*09/28/2014 09/28/2014 Agoraphobia [F40.00] 01/24/2015 Situational anxiety [F41.8] 01/24/2015 Fatty liver [K76.0] 03/28/2016 Elevated LFTs [R79.89] 03/28/2016 Chronic bilateral low back pain without sciatic*06/10/2016 Prostate cancer screening [Z12.5] 07/10/2016 Smoker [F17.200] 07/10/2016 Alcohol use [Z72.89] 07/10/2016 Obesity, Class II, BMI 35-39.9 [E66.9] 12/16/2020 Cervical radiculopathy [M54.12] 12/16/2020 Acute pain of right shoulder [M25.511] 12/18/2020 03/28/2021 ABDULAZIZ (generalized anxiety disorder) [F41.1] 03/17/2021 Spinal stenosis of cervical region [M48.02] 03/26/2021 Tachycardia, unspecified [R00.0] JOSELITO (obstructive sleep apnea) [G47.33] Status post cervical discectomy [Z98.890] 06/17/2021 06/18/2021 (more content not included)... Normal [facility] ALLIED HEALTHon 06-18-2021 ALLIED HEALTH HNO ID: [id number] Author: RT Zohra(R) Service: Radiology Author Type: Technologist Type: Allied Health Filed: 06/18/2021 7:24 AM Note Text: Radiology Service Progress Note PATIENT NAME: Jason Moore DATE OF SERVICE: June 18, 2021 TIME: 7:23 AM PATIENT IDENTITY VERIFICATION COMPLETED USING TWO (2) IDENTIFIERS: Name and Date of confirmed by patient verbally and Name and Date of confirmed by identification band. FALL SCREENING: Has the patient had 2 falls in the last year or 1 fall with injury or currently using an Ambulatory Assistive Device (Walker, Cane, Wheelchair, Crutches, etc.)? Inpatient: Screened on floor PATIENT GENDER DATA: Male PATIENT RELEVANT IMPLANT DATA REVIEWED: Not Applicable RADIOLOGY DEPARTMENT: General X-ray: Exam(s) Completed: Spine X-Ray(s): Cervical AP / LAT Standing upright in collar PERIPHERAL IV DATA: Not applicable SIGNED BY: Isha Thomas RT(R) June 18, 2021 7:23 AM Normal [facility] CNDSon 06-18-2021 [facility] HNO ID: [id number] Author: Flip Gonzalez MD Service: Orthopaedic Surgery Author Type: Physician Type: Discharge Summary Filed: 06/18/2021 12:37 PM Note Text: Orthopaedic Surgery Discharge Summary Admission Date: 06/17/2021 Discharge Date: 06/18/2021 Attending Physician: Flip Gonzalez MD Admitting Diagnosis: Cervical Radiculopathy, Congenital cervical stenosis Discharge Diagnosis: Same as admitting Additional Diagnoses: ACTIVE PROBLEM LIST Left-Sided Low Back Pain Without Sciatica Essential Hypertension With Goal Blood Pressure Less Than 140/90 Palpitations Mixed Hyperlipidemia Well Adult Exam Neurofibroma Agoraphobia Situational Anxiety Fatty Liver Elevated Lfts Chronic Bilateral Low Back Pain Without Sciatica Prostate Cancer Screening Smoker Alcohol Use Obesity, Class II, Bmi 35-39.9 Cervical Radiculopathy Abdulaziz (Generalized Anxiety Disorder) Spinal Stenosis of Cervical Region Tachycardia, Unspecified Joselito (Obstructive Sleep Apnea) Status Post Cervical Discectomy Surgeries During Hospitalization: Procedure(s) (LRB): C5-C6 ANTERIOR CERVICAL DISCECTOMY AND FUSION (N/A) C6-C7 ANTERIOR CERVICAL DISCECTOMY AND FUSION (N/A) Consultations: Occupational Therapy Physical Therapy Case Management Hospital Course: The patient is a 50 year old male who has been followed by Dr. Flip Gonzalez MD. It was determined he would benefit from surgery. The procedure, its risks, benefits, and potential complications were discussed in detail with the patient or POA prior to surgery. Understanding of all topics was conveyed by the patient or POA, and consent was given for surgery. The patient was electively admitted to [facility] on 06/17/2021. Surgery was scheduled and on 06/17/2021 he underwent a C5-C6, C6-C7 ACDF. The procedure was tolerated well and he was sent to the post operative recovery room in stable condition, where he also did well. He was subsequently sent to his hospital room for postoperative management. Once on the floor his postoperative course was unremarkable and he did well. His diet was advanced which he tolerated. His pain was well controlled. He worked with Physical and Occupational Therapy who recommended he be discharged to home. He remained afebrile with stable vital signs throughout his stay. He was stable for discharge on POD #1. Complete and comprehensive discharge instructions were provided to the patient as well as necessary prescriptions. The patient had no further questions and was advised to call with any questions, concerns, or problems. Hemodynamics: Patient was hemodynamically stable postoperatively. Relevant Labs Included: CBC, Coags, BMP, Mg, Phos Discharge Antibiotics: None. The patient received 24 hours of antibiotic coverage marlena-operatively. DVT Prophylaxis: Sequential Compression Devices and Early ambulation Complications: Continued throughout the hospital course without complications. Patient Condition @ Discharge: Stable Vital Signs: BP 132/85 Pulse 89 Temp 36.6 ?C (97.9 ?F) (Oral) Resp 18 Ht 175.3 cm (5' 9) Wt 115.2 kg (254 lb) SpO2 97% BMI 37.51 kg/m? Discharge Disposition: Home/Self Care The patient was instructed to follow-up in: Future Appointments Date Time Provider Department Center 07/01/2021 8:00 AM Lab Covid [facility] 07/23/2021 10:15 AM Flip Gonzalez MD [facility] Highest Readmission Risk Score: 9 The 30 day readmissions risk score is derived from an internally validated risk model which evaluates patient level characteristics, utilization history, medication orders and lab results up until the day of discharge. Patients with a score of 40 or above are considered highest risk for readmission. Specific patient level drivers will be listed at the bottom of the summary. The 30 day readmissions risk score is derived from an internally validated risk model which evaluates patient level characteristics, utilization history, medication orders and lab results up until the day of discharge. Patients with a score of 40 or above are considered highest risk for readmission. Specific patient level drivers will be listed at the bottom of the summary. Discharge Medications: Current Discharge Medication List START taking these medications cyclobenzaprine (FLEXERIL) 5 mg Take 5 mg by mouth three times daily as needed for muscle spasm. Qty: 12 tablet Refills: 0 docusate sodium (COLACE) 100 mg Take 100 mg by mouth twice daily. Qty: 14 capsule Refills: 0 oxyCODONE IR (ROXICODONE) 5 mg Take 5 mg by mouth every 6 hours as needed for pain. Qty: 28 tablet Refills: 0 Associated Diagnoses:Status post cervical discectomy CONTINUE these medications which have NOT CHANGED metoprolol succinate ER (TOPROL XL) 50 mg Take 50 mg by mouth once daily. Qty: 90 tablet Refills: 1 Associated Diagnoses:Essential hypertension with goal blood pressure less ellen (more content not included)... Normal [facility] THERAPY NTon 06-18-2021 THERAPY NT HNO ID: [id number] Author: Yahaira Iyer, PT Service: Physical Therapy Author Type: Physical Therapist Type: Therapy (PT/OT/Speech/Resp) Filed: 06/18/2021 11:39 AM Note Text: Physical Therapy Evaluation SERVICE DATE: 06/18/2021 SERVICE TIME: 854 to 912 ROOM: [place] [address] Recommended Discharge Disposition: Home Anticipated Discharge Needs: Physical Assist at Home Physical Assist at Home for: Transportation;Shopping Patient demo good understanding of spinal precautions after education. Safe for home going. No further need for acute care PT at this time. 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 Entry To Home: Stairs Number Of Stairs Into Home: 2 Number Of Stairs To Bed/Bath: 0 Equipment Owned: (none) Prior Functional Level: Within Functional Limits Prior Functional Level Comments: Independent Patient Report: Agreeable to PT CURRENT FUNCTIONAL STATUS: Most recent performance Current Functional Mobility Assist Level Additional Information Rolling Supervision cues for log roll to maintain precautions Supine to Sit Supervision Sit to Supine Supervision Scooting Sit to Stand Supervision Stand to Sit Supervision Bed to Chair Toilet/Commode Gait Contact Guard Assistance Gait Device: None Gait Distance (feet): 150 Stairs Contact Guard Assistance Stairs Device: Rail Number of Stairs: 4 Curb Step Car Transfer Blank min indicate activity not attempted Range of Motion: WFL (within precautions) Strength: WFL JH-HLM: 7: Walk 25 feet or more Learning/Educational Needs: Plan of Care;Precautions Goals for Plan of Care: Patient /Caregiver Goals: Go Home Goal: Demo good understanding of spinal precautions during functional mobility Patient will be discontinued from Physical Therapy when no further skilled needs are identified in this setting. PLAN: PT Frequency: Discontinue therapy services Reasons Therapy Services Discontinued: Goals met Plan of Care developed with: Patient TREATMENT INTERVENTIONS: Therapy Diagnosis: No Skilled Need Interventions Provided: Evaluation $ Evaluation-Low (99090) Billed Units: 1 unit Education on spinal precautions - limiting bending, lifting, twisting. Issued and reviewed handout of post op spinal precautions. Pt demo good understanding. Education on donning/doffing brace. Pt demo good understanding. Training AND education provided in: Precautions/restrictions The following therapeutic skills were used: Activity dosing, Movement facilitation Skilled Treatment Time (minutes): 18 Please see discipline specific clinical documentation flowsheet for complete details for this therapy evaluation/treatment. SIGNATURE: Yahaira Iyer PT PATIENT NAME: Jason Moore DATE: June 18, 2021 TIME: 11:38 AM Normal [facility] THERAPY NT HNO ID: [id number] Author: Diane Thayer OTR/L Service: Occupational Therapy Author Type: Occupational Therapist Type: Therapy (PT/OT/Speech/Resp) Filed: 06/18/2021 9:41 AM Note Text: Occupational Therapy Evaluation SERVICE DATE: 06/18/2021 SERVICE TIME: 809 to 832 ROOM: [place] [address] Recommended Discharge Disposition: Home Anticipated Discharge Needs: Physical Assist at Home Physical Assist at Home for: Transportation;Shopping OT 6 Clicks Score: 21 Precautions/Activity Restrictions: Brace;Spine Isolation Type: None Current Hospital Course: s/p: ACDF C5-7 06/17 Reason for Hospital Admission: neck surgery Relevant Past Medical History: spinal stenosis, HTN Response to Therapy Interventions: Good participation in activities Continue skilled needs due to: Functional impairment, Safety concerns Occupational Therapy Problem List: Safety Deficits;Impaired Self Care Cognition/Communication Deficits Responsiveness: Alert Follows Commands: 2-step Commands Executive Function Deficits: Safety Awareness Safety Awareness Deficit: Minimal impairment Treatment Interventions: Education;Self Care / Home Management Plan for next visit: Bathing training, Dressing training Home Environment Patient Lives With: Family Assistance Available: flight crew time clerk Entry To Home: Stairs Number Of Stairs Into Home: 2 Prior Functional Level: Within Functional Limits Prior Functional Level Comments: 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 Patient Report: agreeable to session CURRENT FUNCTIONAL STATUS: Most recent performance Current Activities of Daily Living Assist Level Additional Information Feeding Independent Grooming Set Up see below Bathing Upper Body Stand By Assistance Bathing Lower Body Minimal Assistance Dressing Upper Body Stand By Assistance Dressing Lower Body Minimal Assistance Toileting Stand By Assistance Functional Mobility Assist Level Additional Information Rolling Supine to Sit Supervision Sit to Supine Supervision Scooting Supervision Sit to Stand Stand By Assistance Stand to Sit Stand By Assistance Bed to Chair Toilet/Commode Stand By Assistance Shower Functional Mobility Stand By Assistance;Additional Information mobility to bathroom and back Blank min indicate activity not attempted Range of Motion: WFL Strength: Strength Limitation Comments Strength Limitation Comments: not tested due to spine precautions. Patient reports being weaker on the R side Balance: Static Standing;Dynamic Standing Static Standing Balance: Good Patient able to maintain balance without handhold support, limited postural sway Dynamic Standing Balance: Good Patient accepts moderate challenge, able to maintain balance while picking up object off floor Learning/Educational Needs: Rehabilitation Techniques and Procedures;Self Care Goals for Plan of Care: Patient /Caregiver Goals: Go Home Progress Toward Goals: Progressing as expected Rehab Potential: Excellent Patient will be discontinued from Occupational Therapy when no further skilled needs are identified in this setting. PLAN: OT Frequency: 1 time per week Plan of Care developed with: Patient TREATMENT INTERVENTIONS: Therapy Diagnosis: Decreased activities of daily living (ADL) Interventions Provided: Evaluation;Self Chcf Management (81726) $ Evaluation-Low (27859) Billed Units: 1 unit Self Chcf Management (64498) Treatment Minutes: 8 $ Self Chcf Management (87352) Billed Units: 1 unit Educated on the role of OT in the acute care setting. Instructed in post-op instructions during ADLs after neck surgery. Discussed 3/3 cervical precautions during self care activities. Provided instruction, cuing and facilitation for upper body dressing (c-collar), educated on wear schedule, appropriate don/doff technique and idenifying good fit. Provided instruction, cuing and facilitation for lower body dressing using the figure four technique to avoid excessive leaning forward. Education in step by step sequence for shower and car transfer technique within cervical restrictions. Educated on proper bathing technique with neck precautions, encouraged the use of long handled sponge. Training AND education provided in: Bed mobility, Benefits of in-hospital mobility, Disease specific education, Energy conservation, Lower extremity bathing, Lower extremity dressing, Positioning, Precautions/restrictions, Role of Occupational Therapy, Transfer - Bed to chair, Transfer - Toilet/commode, Transfer - Sit to stand, Treatment protocol, Sling/Brace management The following therapeutic skills were used: Activity dosing, Cues for sequencing/proper technique for activity Timed Code Treatment (minutes): 8 Skilled Treatment Time (minutes): 23 Please see discipline specific clinical documentation flowsheet for complete details for this therapy evaluation/treatment. SIGNATURE: EMELIA Nixon/True CARMONA (more content not included)... Normal [facility] XR CERVICAL 2V AP/LATon 10-2 XR CERVICAL 2V AP/LAT * * *Final Report* * * DATE OF EXAM: Jun 18 2021 7:31AM [facility] [id number] - XR CERVICAL 2V AP/LAT / PROCEDURE REASON: Post-operative / post-procedure assessment, asymptomatic * * * * Physician Interpretation * * * * EXAM TITLE: CERVICAL SPINE 2 VIEWS DATE: 06/18/2021 COMPARISON: Cervical spine 4 views 12/16/2020. Intraoperative images of the cervical spine 06/17/2021. CLINICAL INDICATION/HISTORY: Postoperative/postprocedur e assessment, asymptomatic. TECHNIQUE: Upright AP and lateral views were obtained of the cervical spine. FINDINGS: Counting reference: Craniocervical junction. Anatomic Variants: None. A cervical collar is noted to be in place. Postoperative changes of anterior cervical discectomy are noted at the C5-C6 and C6-C7 levels. There is anterior metallic plate and screw fixation along with interbody spacer placement. C5-C6 minimal retrolisthesis, stable. Cervical vertebral alignment is otherwise unremarkable. Prevertebral soft tissue swelling is noted consistent with recent surgery. IMPRESSION: Postsurgical changes of C5-C6 and C6-C7 anterior cervical discectomy with fusion. No definite surgical complication. Stable C5-C6 minimal retrolisthesis. Parachute Manufacturing Supervisor: LAURENT Transcribe Date/Time: Jun 18 2021 7:34A Dictated by : MAYE CRUZ MD This examination was interpreted and the report reviewed and electronically signed by: MAYE CRUZ MD on Jun 18 2021 7:44AM EST [id number] Normal [facility] ANES POSTPROC EVALon 021 ANES POSTPROC EVAL HNO ID: [id number] Author: Claus Smyth MD Service: Anesthesiology Author Type: Physician Type: Anesthesia Postprocedure Evaluation Filed: 06/17/2021 4:10 PM Note Text: POST ANESTHESIA EVALUATION NOTE : 1970 Procedure Summary Date: 06/17/21 Room / Location: HI OR / HI OR Anesthesia Start: 815 Anesthesia Stop: 120 Procedures: C5-C6 ANTERIOR CERVICAL DISCECTOMY AND FUSION (N/A Neck) C6-C7 ANTERIOR CERVICAL DISCECTOMY AND FUSION (N/A Neck) Diagnosis: Cervical radiculopathy Spinal stenosis in cervical region (Cervical radiculopathy [M54.12]) (Spinal stenosis in cervical region [M48.02]) Surgeons: Flip Gonzalez MD Responsible Provider: Claus Smyth MD Anesthesia Type: general ASA Status: 3 Anesthesia Type: general Last vitals Vitals Value Taken Time BP 107/73 06/17/21 1600 Temp 36.1 ?C (97 ?F) 06/17/21 1400 HR SpO2 79 06/17/21 1609 Resp 22 06/17/21 1609 SpO2 100 % 06/17/21 1609 Vitals shown include unvalidated device data. Post Anesthesia Patient Status Patient Evaluation: PACU. Anticipated Disposition: inpatient floor planned admission. Neurological Status: aware and responsive. Pulmonary Status: breathing comfortably on supplemental oxygen Airway Control: returned to baseline unsupported. Cardiovascular Status: stable. Pain Management: clinically adequate Postoperative Hydration: acceptable. Intraoperative Events: no significant anesthesia events Post Operative Nausea/Vomiting Status: no significant post operative nausea or vomiting Anesthetic Observations: Recommendation: continue current plan of care and further care per PACU/ICU/floor team. Anesthesia Observations No Documentation SIGNATURE: Claus Smyth MD PATIENT NAME: Jason Moore DATE: June 17, 2021 TIME: 4:09 PM CSN: [id number] Normal [facility] ANES PRE-OPon 06-17-2021 ANES PRE-OP HNO ID: [id number] Author: Claus Smyth MD Service: Anesthesiology Author Type: Physician Type: Anesthesia Preprocedure Evaluation Filed: 06/17/2021 8:54 AM Note Text: ANESTHESIOLOGY DAY OF SURGERY NOTE : 1970 Procedure(s) (LRB): C5-C6 ANTERIOR CERVICAL DISCECTOMY AND FUSION (N/A) C6-C7 ANTERIOR CERVICAL DISCECTOMY AND FUSION (N/A) Surgeon(s): Flip Gonzalez MD Estimated body mass index is 37.51 kg/m? as calculated from the following: Height as of 06/05/21: 175.3 cm (5' 9). Weight as of 06/09/21: 115.2 kg (254 lb). Most recent hematocrit and potassium results: Hematocrit 45.2 06/05/2021 Potassium 3.4 06/05/2021 50yo male with HTN, fatty liver, HL, obesity, cervical spinal stenosis, tobacco abuse, JOSELITO (none since losing weight), moderate to heavy EtOH use Relevant Problems ANESTHESIA (+) JOSELITO (obstructive sleep apnea) CARDIO (+) Essential hypertension with goal blood pressure less than 140/90 -RENAL (+) Fatty liver PULMONARY (+) JOSELITO (obstructive sleep apnea) I - PHYSICAL EVALUATION AIRWAY Patient intubated: No. Mallampati: III. TM distance: >3 FB. Neck ROM: full ROM without neurological symptoms. Mouth opening: adequate. DENTAL Dental findings: teeth intact. II - ANESTHESIA PLAN ASA Score: 3 Anesthetic Plan: general Airway type: ETT The patient is a current smoker. NPO Status: adequate Monitoring plan: standard ASA. Postoperative analgesic plan: parenteral or oral opioids. Anesthetic Risks, Benefits, Alternatives, Personnel Discussed. Consent obtained from: patient.Patient / Surrogate agrees to blood products: Yes Significant changes in the patient condition since the History and Physical, not otherwise documented in primary service progress note: no. Potential Anesthesia issues that may suggest increased risk of complications or contraindication to planned procedure: none. Vitals Value Taken Time BP 153/101 06/17/21 0656 Pulse 99 06/17/21 0656 Resp 18 06/17/21 0656 Temp 36.2 ?C (97.2 ?F) 06/17/21655 SpO2 100 % 06/17/21655 No current facility-administered medications on file as of 06/17/2021. Outpatient Medications as of 06/17/2021 Medication Sig - lisinopril-hydroCHLOROthia zide (PRINZIDE,ZESTORETIC) 20-12.5 mg per tablet Take 1 tablet by mouth every morning. I have interviewed and examined the patient. I have reviewed the medical record and/or the pre-anesthesia evaluation, pertinent labs, and test results. This contains updated information obtained within 48 hours of Surgery/Procedure. SIGNATURE: Claus Smyth MD PATIENT NAME: Jason Moore DATE: June 17, 2021 TIME: 7:11 AM CSN: [id number] [facility] BRIEF OP NOTon 06-17-2021 BRIEF OP NOT HNO ID: [id number] Author: Doyle Patel MD Service: Orthopaedic Surgery Author Type: Resident Type: Brief Op Note Filed: 06/17/2021 12:18 PM Note Text: Orthopaedic Surgery Brief Operative Note Log ID: [id number] Surgery/Procedure Date: 06/17/2021 Incision/Procedure Start Time: 8:53 AM Incision Close/Procedure End Time: 11:45 AM Surgeon(s)/Proceduralist(s ) and Track Mechanic(s): Surgeon(s) and Role: * Flip Gonzalez MD - Primary * Doyle Patel MD - Resident - Assisting No Additional Staff Procedure(s): C5-6, C6-7 ACDF Anesthesia: General Pre-Op/Pre-Procedure Diagnosis: 1) Cervical radiculopathy, 2) congenital cervical stenosis Post-Op/Post-Procedure Diagnosis: Same Implant: Implant Name Type Inv. Item Serial No. Wholesale Loan Processor Lot No. [id number] No. Used Action SPACER AVS 4D 6MM SPINAL BONE PLUG - [id number] Graft SPACER AVS 4D 6MM SPINAL BONE PLUG [id number] LANI SPINE N/A 1 Implanted SPACER AVS 4D 6MM SPINAL BONE PLUG - [id number] Graft SPACER AVS 4D 6MM SPINAL BONE PLUG [id number] LANI SPINE N/A 1 Implanted Fluids: 1,300 mL Estimated Blood Loss: 25 mL Bowles: Yes, removed at conclusion of case Specimens: None Drains: 1/8 Hemovac Findings: See operative report. Complications: None Special medications: 2 g Ancef Assessment: 50 year old male status-post C5-6, C6-7 ACDF. Post op plan: 1. Pain control. 2. Weight Bearing Status: WBAT BLE. Limit lifting with BUE to <10 lbs. 3. Dressing(s): Gauze + Tegaderm. Change when removing drain. 4. Drain(s): / Hemovac. Remove on morning of POD #1. 5. PT/OT: Evaluation AND recommendations. 6. DVT PPx: SCDs. No chemoprophylaxis. 7. Antibiotic PPx: Acnef 2 g Q8H for 24 hours. 8. Bowles: Removed. 9. Imaging: XR of cervical spine at 0700 on POD #1.. 10. Anticipated Length of Stay/Disposition: 1-2 days/Home. Doyle Patel MD Orthopaedic Surgery, PGY-5 Pager: [phone] Ortho Pager: [phone] [facility] OPERATIVE NOon 06-17-2021 OPERATIVE NO HNO ID: [id number] Author: Flip Gonzalez MD Service: Orthopaedic Surgery Author Type: Physician Type: Operative Report Filed: 06/17/2021 8:19 PM Note Text: OPERATIVE/PROCEDURE REPORT LOG ID: [id number] SURGERY/PROCEDURE DATE: 06/17/2021 INCISION/PROCEDURE START TIME: 8:53 AM INCISION CLOSE/PROCEDURE END TIME: SURGEON(S)/PROCEDURALIST(S ) AND ROUTE JUMPER(S): Surgeon(s) and Role: * Flip Gonzalez MD - Primary * Doyle Patel MD - Resident - Assisting No Additional Staff SURGERY/PROCEDURE(S): C5-C6, C6-C7 anterior cervical discectomy and fusion, Insertion of intervertebral interbody device at C5-C6, C6-C7, anterior spinal instrumentation C5-C7, Use of structural allograft. PRE-OP/PRE-PROCEDURE DIAGNOSIS: cervical disc herniation C6-C7, foraminal stenosis C5-C6, congenital cervical stenosis, severe right arm pain POST-OP/POST-PROCEDURE DIAGNOSIS: same INSTRUMENTATION: 6mm structural allograft at C5-C6, C6-C7 with a K2M anterior plate. SURGERY/PROCEDURE DETAILS: INDICATIONS: The patient is a 50-year-old male, [place] complaining of severe neck and right arm pain. Imaging studies including an MRI revealed cervical congenital stenosis, cervical disc herniation at C6-C7, and formainal stenosis at C5-C6 . Their symptoms were refractory to conservative treatment including anti-inflammatory medications and physical therapy. The nonoperative and operative treatment options were discussed at great length with the patient. The patient elected to move forward out with surgery. We discussed various surgical options including an anterior and posterior approach to decompress his cervical congential stenosis. Patient elected to move forward with anterior surgery only at this time. We recommended a C5-C7 ACDF with instrumentation allograft. The risks and benefits of procedure were discussed at great length with the patient. The patient expressed understanding of these risks and informed consent was obtained. DESCRIPTION OF PROCEDURE: The patient was met in the preoperative area by myself, my resident, circulating OR nurse staff, and the Anesthesia staff. Standard institutional pre-operative huddle then occurred. The patient's anterior cervical spine was marked. The patient received antibiotic prophylaxis. After induction of general anesthesia, the patient was carefully placed in the supine position on a regular OR bed. A small bump was placed underneath the scapula. The neck was placed in slight extension. The patients arms were tucked and taped to the side. Baseline neuromonitoring signals were obtained. Their anterior cervical spine was then prepped and draped in normal sterile fashion. We then marked out the incision using intraoperative fluoroscopy. An incision was then made approximately 3 finger breadths above the clavicle from midline to the left in the skin crease. The skin was incised using a #15 blade scalpel. The subcutaneous tissues were divided using electrocautery. The platysma was incised in line with the incision and a plane was developed along the anteromedial aspect of the sternocleidomastoid muscle. We then used blunt dissection to expose the anterior aspect of the spine. We localized the level. We then elevated the longus colli muscles on the right and left hand side from the inferior aspect of the C5 , superior aspect of C7. We then placed Pile Driving Superintendent retractors underneath the longus colli muscle flaps at C5-C6. Ashburn pins were placed in the vertebral body of C5 and C6. We then performed a C5-C6 ACDF. The disk and endplate cartilage were then removed in its entirety from gratdptj-lq-wkjhtgjx in an anterior-posterior fashion using a combination of pituitary rongeurs, curettes, and Kerrison's. We then drilled down the posterior osteophyte using a high-speed vincenzo, the disc was completely collapsed and calcified. We then created parallel endplates using a high-speed vincenzo. A 6 mm trial was used from the Lani set. A 6 mm structural allograft was then placed in the disk space at C5-C6. The graft had excellent interference fit. We then performed a C6-C7 ACDF. The disk and endplate cartilage were then removed in its entirety from xxqfwwcs-co-jolkxpge in an anterior-posterior fashion using a combination of pituitary rongeurs, curettes, and Kerrison's. We then drilled down the posterior osteophyte using a high-speed bur. We used up-angled curette to get posterior to the posterior longitudinal ligament. The posterior longitudinal ligament was then resected in its entirety. The osteophytes was removed in its entirety using #2 Kerrison and bilateral C7 foraminotomies were performed. At completion of this, a nerve hook was easily passed behind the vertebral body of C6 and C7 into the foramina of C7 on the right and left hand side. We then created parallel endplates using a high-speed vincenzo. A 6 mm trial was used from the Ladd set. A 6 mm struct (more content not included)... Normal [facility] XR CERVICAL 2V AP/LATon 05-30 XR CERVICAL 2V AP/LAT * * *Final Report* * * DATE OF EXAM: Jun 17 2021 11:48AM [facility] 5308 - XR CERVICAL 2V AP/LAT / PROCEDURE REASON: ACDF * * * * Physician Interpretation * * * * EXAM TITLE: INTRAOPERATIVE SPOT VIEWS OF THE CERVICAL SPINE DATE: June 17, 2021 at 11:02 AM COMPARISON: CT scan of the cervical spine from April 09, 2021 and MRI of the cervical spine from January 23, 2021. CLINICAL INDICATION/HISTORY: The patient is a 50-year-old male with cervical spinal stenosis in the lower cervical spine TECHNIQUE: 0 minutes and 18 seconds of fluoroscopy time was available in the OR. 2 spot films were obtained. Fluoroscopy Radiation dose: Integrated dose-area product (DAP) for this visit = 10.82 mGy*cm. FINDINGS: There are changes of anterior discectomy and fusion with anterior plate fixation extending from C5 through C7 with anatomic alignment achieved. Endotracheal tube and nasogastric tube are positioned appropriately. Retractors identified anteriorly. The rest of the visualized disc spaces are within normal limits. IMPRESSION: Intraoperative spot view documents anterior discectomy and fusion with anterior plate fixation from C5 through C7 with anatomic alignment achieved. Parachute Manufacturing Supervisor: LAURENT Transcribe Date/Time: Jun 18 2021 2:56P Dictated by : OMA CH MD This examination was interpreted and the report reviewed and electronically signed by: OMA CH MD on Jun 18 2021 2:59PM EST [id number] Normal [facility] XR VERIFY LEVEL [id number] 06-17-2021 XR VERIFY LEVEL C-SPINE-NB * * *Final Report* * * DATE OF EXAM: Jun 17 2021 9:25AM [facility] [id number] - XR VERIFY LEVEL C-SPINE-NB / PROCEDURE REASON: LEVEL * * * * Physician Interpretation * * * * EXAMINATION: XR VERIFY LEVEL C-SPINE-NB CLINICAL HISTORY: Cervical spine surgery Intraoperative localization. Technique: XR VERIFY LEVEL C-SPINE-NB Comparison: CT cervical spine 04/09/2021 RESULT: A single intraoperative lateral view of the cervical spine was obtained for localization. There is a probe noted with tip overlying the anterior C5-C6 intervertebral disc level. Findings were relayed to the OR via telephone with agreement by Dr. Gonzalez on 06/17/2021 at 9:27 AM. IMPRESSION: Intraoperative localization as described above. Fluoroscopic Radiation Summary: Plane A, Air Kerma: 1.8 mGy Dose Area Product (DAP): Fluoro time: 0:08 min:sec Parachute Manufacturing Supervisor: [facility] Transcribe Date/Time: Jun 17 2021 9:26A Dictated by : SCARLETT GODINEZ MD This examination was interpreted and the report reviewed and electronically signed by: SCARLETT GODINEZ MD on Jun 17 2021 9:27AM EST [id number] Normal [facility] CBC panel Auto (Bld)on 06-05 Erythrocyte distribution width (RBC) [Ratio] 11.9 % Normal 11.5-15.0 [facility] Comment on above: Order Comment: Speci men Type: BLOOD SPECIMEN Performed By: #### 5 8410-2 #### [facility] CLIA [id number] [address] Hematocrit (Bld) [Volume fraction] 45.2 % Normal 39.0-51.0 [facility] Comment on above: Order Comment: Speci men Type: BLOOD SPECIMEN Performed By: #### 5 8410-2 #### [facility] CLIA [id number] [address] Hemoglobin (Bld) [Mass/Vol] 15.4 g/dL Normal 13.0-17.0 [facility] Comment on above: Order Comment: Speci men Type: BLOOD SPECIMEN Performed By: #### 5 8410-2 #### [facility] CLIA [id number] [address] MCH (RBC) [Entitic mass] 33.4 pg Normal 26.0-34.0 [facility] Comment on above: Order Comment: Speci men Type: BLOOD SPECIMEN Performed By: #### 5 8410-2 #### [facility] CLIA [id number] [address] MCHC (RBC) [Mass/Vol] 34.1 g/dL Normal 30.5-36.0 [facility] Comment on above: Order Comment: Speci men Type: BLOOD SPECIMEN Performed By: #### 5 8410-2 #### [facility] CLIA [id number] [address] MCV (RBC) [Entitic vol] 98.0 fL Normal 80.0-100.0 [facility] Comment on above: Order Comment: Speci men Type: BLOOD SPECIMEN Performed By: #### 5 8410-2 #### [facility] CLIA [id number] [address] Nucleated RBC (Bld) [#/Vol] 10*3/uL Normal <0.01 [facility] Comment on above: Order Comment: Speci men Type: BLOOD SPECIMEN Performed By: #### 5 8410-2 #### [facility] CLIA [id number] [address] Platelet mean volume (Bld) [Entitic vol] 11.0 fL Normal 9.0-12.7 [facility] Comment on above: Order Comment: Speci men Type: BLOOD SPECIMEN Performed By: #### 5 8410-2 #### [facility] CLIA [id number] [address] Platelets (Bld) [#/Vol] 308 10*3/uL Normal 150-400 [facility] Comment on above: Order Comment: Speci men Type: BLOOD SPECIMEN Performed By: #### 5 8410-2 #### [facility] CLIA [id number] [address] RBC (Bld) [#/Vol] 4.61 10*6/uL Normal 4.20-6.00 [facility] Comment on above: Order Comment: Speci men Type: BLOOD SPECIMEN Performed By: #### 5 8410-2 #### [facility] CLIA [id number] [address] WBC (Bld) [#/Vol] 9.10 10*3/uL Normal 3.70-11.00 [facility] Comment on above: Order Comment: Speci men Type: BLOOD SPECIMEN Performed By: #### 5 8410-2 #### [facility] CLIA [id number] [address] Comprehensive metabolic 2000 panelon 06-05-2021 Albumin [Mass/Vol] 4.6 g/dL Normal 3.9-4.9 [facility] Comment on above: Order Comment: Speci men Type: BLOOD SPECIMEN Performed By: #### 2 4323-8 #### [facility] CLIA [id number] [address] ALP [Catalytic activity/Vol] 100 U/L Normal 38-113 [facility] Comment on above: Order Comment: Speci men Type: BLOOD SPECIMEN Performed By: #### 2 4323-8 #### [facility] CLIA [id number] [address] ALT With P-5'-P [Catalytic activity/Vol] 66 U/L High 10-54 [facility] Comment on above: Order Comment: Speci men Type: BLOOD SPECIMEN Performed By: #### 2 4323-8 #### [facility] CLIA [id number] [address] Anion gap [Moles/Vol] 17 mmol/L Normal 9-18 [facility] Comment on above: Order Comment: Speci men Type: BLOOD SPECIMEN Performed By: #### 2 4323-8 #### [facility] CLIA [id number] [address] AST With P-5'-P [Catalytic activity/Vol] 68 U/L High 14-40 [facility] Comment on above: Order Comment: Speci men Type: BLOOD SPECIMEN Performed By: #### 2 4323-8 #### [facility] CLIA [id number] [address] [facility] Bilirubin [Mass/Vol] 0.5 mg/dL Normal 0.2-1.3 [facility] Comment on above: Order Comment: Speci men Type: BLOOD SPECIMEN Performed By: #### 2 4323-8 #### [facility] CLIA [id number] [address] Calcium [Mass/Vol] 10.2 mg/dL Normal 8.5-10.2 [facility] Comment on above: Order Comment: Speci men Type: BLOOD SPECIMEN Performed By: #### 2 4323-8 #### [facility] CLIA [id number] [address] [facility] [facility] Chloride [Moles/Vol] 97 mmol/L Normal 97-105 [facility] Comment on above: Order Comment: Speci men Type: BLOOD SPECIMEN Performed By: #### 2 4323-8 #### [facility] CLIA [id number] [address] [facility] CO2 [Moles/Vol] 22 mmol/L Normal 22-30 [facility] Comment on above: Order Comment: Speci men Type: BLOOD SPECIMEN Performed By: #### 2 4323-8 #### [facility] CLIA [id number] [address] [place] Creatinine [Mass/Vol] 1.47 mg/dL High 0.73-1.22 [facility] Comment on above: Order Comment: Speci men Type: BLOOD SPECIMEN Performed By: #### 2 4323-8 #### [facility] CLIA [id number] [address] [place] GFR/1.73 sq M.predicted MDRD (S/P/Bld) [Vol rate/Area] mL/min/{1.73_m2} Normal [facility] Comment on above: Order Comment: Speci men Type: BLOOD SPECIMEN Result Comment: 51 eGFR (Estimated GFR) Units of measure: mL/min/1.73 meters squared eGFR is derived from the reexpressed MDRD Study equation using the following parameters: serum creatinine, age, gender and race. The creatinine assay has been calibrated to be traceable to IDMS. An eGFR <60 mL/min/1.73m2 for >3 months is consistent with chronic kidney disease. Refer to KDOQI guidelines for clinical interpretation. In patients with unstable renal function, e.g. those with acute kidney injury, the eGFR may not accurately reflect actual GFR. Performed By: #### 2 4323-8 #### [facility] CLIA [id number] [address] [place] Glucose [Mass/Vol] 108 mg/dL High 74-99 [facility] Comment on above: Order Comment: Speci men Type: BLOOD SPECIMEN Result Comment: The [place] Diabetes Association (ADA) provides guidance for cutoff values for fasting glucose and random glucose. The ADA defines fasting as no caloric intake for at least 8 hours. Fasting plasma glucose results between 100 to 125 mg/dL indicate increased risk for diabetes (prediabetes). Fasting plasma glucose results greater than or equal to 126 mg/dL meet the criteria for diagnosis of diabetes. In the absence of unequivocal hyperglycemia, results should be confirmed by repeat testing. In a patient with classic symptoms of hyperglycemia or hyperglycemic crisis, random plasma glucose results greater than or equal to 200 mg/dL meet the criteria for diagnosis of diabetes. Reference: Standards of Medical Care in Diabetes 2016, [place] Diabetes Association. Diabetes Care. 2016.39(Suppl 1). Performed By: #### 2 4323-8 #### [facility] CLIA [id number] [address] STATES OF [facility] Potassium [Moles/Vol] 3.4 mmol/L Low 3.7-5.1 [facility] Comment on above: Order Comment: Speci men Type: BLOOD SPECIMEN Performed By: #### 2 4323-8 #### [facility] CLIA [id number] [address] [facility] Protein [Mass/Vol] 7.5 g/dL Normal 6.3-8.0 [facility] Comment on above: Order Comment: Speci men Type: BLOOD SPECIMEN Performed By: #### 2 4323-8 #### [facility] CLIA [id number] [address] STATES OF [facility] Sodium [Moles/Vol] 136 mmol/L Normal 136-144 [facility] Comment on above: Order Comment: Speci men Type: BLOOD SPECIMEN Performed By: #### 2 4323-8 #### [facility] CLIA [id number] [address] [place] Urea nitrogen [Mass/Vol] 22 mg/dL Normal 9-24 [facility] Comment on above: Order Comment: Speci men Type: BLOOD SPECIMEN Performed By: #### 2 4323-8 #### [facility] CLIA [id number] [address] [place] HISTORY PHYSICALon 1 HISTORY PHYSICAL HNO ID: [id number] Author: Solange Sedlacko, PA-C Service: ? Author Type: Physician Track Mechanic Type: HANDP Filed: 06/05/2021 4:50 PM Note Text: HISTORY AND PHYSICAL EXAMINATION SERVICE DATE: 06/05/2021 SERVICE TIME: 2:20 PM PRIMARY CARE PHYSICIAN: Kota Barba APRN.SONOGRAPHY TECHNICIAN, DNP REASON FOR VISIT: Jason Moore is a 50 year old male who is scheduled for Procedure(s): C5-C6 ANTERIOR CERVICAL DISCECTOMY AND FUSION (N/A) C6-C7 ANTERIOR CERVICAL DISCECTOMY AND FUSION (N/A) at the request of Dr. Flip Gonzalez MD for routine HANDP. My final recommendation will be communicated back to the requesting physician by way of shared medical record or letter. Subjective The patient has the following: CHIEF COMPLAINT: I'm here for surgery on my neck HPI: 50 year old male presents to PST in preparation for a C5-6 anterior cervical discectomy and fusion. The patient has noted persistent neck pain and right arm radicular symptoms since October of 2020. He denies any antecedent trauma or injury. He notes right sided neck pain which radiates into the right shoulder, down the lateral aspect of his arm; associated with numbness of the right hand. He also notes weakness of the right tricep. He has undergone treatment with PT, NSAIDs, muscle relaxants, and steroid injections; all have provided mild, but incomplete pain relief and no difference in his numbness and weakness. An MRI showed Multilevel degenerative changes throughout the cervical spine.?Of significance, right paracentral disc extrusion at C6-C7 contributes to severe narrowing of the right proximal neural foramen at this level. ?Severe left foraminal narrowing seen at C5-C6. ?Foraminal narrowing of up to a moderate degree at additional cervical levels. ?Canal stenosis of up to a moderate degree seen at multiple levels. The patient denies any left sided symptoms, no bladder or bowel control issues, and no difficulty with balance. He has discussed the planned procedure with the surgeon and has agreed to proceed. REVIEW OF SYSTEMS: General: Negative for: unintentional weight change and malaise. Neurological: Negative for: headaches, Parkinson's disease, seizures, TIA and strokes. Respiratory: Positive for: tobacco use. Negative for: asthma, COPD, current cough, bronchodilator used daily for the last 3 months, dyspnea, home oxygen, pneumonia within 6 weeks and obstructive sleep apnea. Cardiovascular: Positive for: hypertension Negative for: arrhythmia, CAD, chest pain, CHF, DVT/PE, hyperlipidemia and murmur/valvular heart disease. GI: History of fatty liver Negative for: abdominal pain, GERD, liver disease, nausea and vomiting. : Negative for: BPH, decreased stream, dysuria, flank pain, frequent urination, hematuria and urinary incontinence. Endocrine: Negative for: diabetes mellitus, hyperthyroidism and hypothyroidism. Psych: Negative for: anxiety and depression. Musculoskeletal: See HPI Skin: Negative for: lesions, itching and rash. PAST MEDICAL HISTORY Diagnosis Date - Alcohol use 07/10/2016 3-5 day - Back pain - Cervical radiculopathy 12/16/2020 - Fatty liver 03/28/2016 - Heart rate fast on BB - Hypertension - Mixed hyperlipidemia 06/28/2014 - Obesity, Class II, BMI 35-39.9 12/16/2020 - JOSELITO (obstructive sleep apnea) resolved with weight loss - Spinal stenosis in cervical region PAST SURGICAL HISTORY Procedure Laterality Date - APPL-INTERVERTEBRAL BIOMECHANICAL DEVICES - COLONOSCOP W/ OR W/O BRSH SPEC 09/28/2014 Colonoscopy, repeat 5 yrs - INSERT VERT FIX DEV,ANT,3 SGMTS - PAST SURGICAL HISTORY OF back injections and disc biopsy - SPIN BONE ALLOGRFT STRUCTURAL 08/30/2011 FUSION AND REPLACED DISC lumbar FAMILY HISTORY Problem Relation Age of Onset [...] years: 10.50 - Smokeless tobacco: Never Used Vaping Use - Vaping Use: Never used Substance Use Topics - Alcohol use: Yes Comment: moderate amount of alcohol, 1-2 drinks a day - Drug use: Never Prior to Admission medications as of 04/29/21 1119 Medication Sig Last Dose Taking metoprolol succinate ER (TOPROL XL) 25 mg 24 hr tablet Take 1 tablet by mouth once daily. lisinopril-hydroCHLOROthia zide (PRINZIDE,ZESTORETIC) 20-12.5 mg per tablet Take 1 tablet by tomeka (more content not included)... Normal [facility] NICOTINE/COTININEon 06-05-20 21 Cotinine [Mass/Vol] 65 ng/mL High <2 [facility] Comment on above: Order Comment: Speci men Type: BLOOD SPECIMEN Result Comment: (NOT E) WHILE USING A TOBACCO PRODUCT: Peak Nicotine concentration: 30 ng/mL to 50 ng/mL Peak Cotinine concentration: 200 ng/mL to 800 ng/mL (Higher Cotinine values may be seen in subjects with high cytochrome P450 2D6 activity.) TOBACCO USER AFTER TWO WKS OF COMPLETE ABSTINENCE: Nicotine concentration: <2.0 ng/mL Cotinine concentration: <2.0 ng/mL NONTOBACCO USER WITH PASSIVE EXPOSURE: Nicotine concentration: <2.0 ng/mL Cotinine concentration: <8.0 ng/mL NONTOBACCO USER WITH NO PASSIVE EXPOSURE: Nicotine concentration: <2.0 ng/mL Cotinine concentration: <2.0 ng/mL To discriminate if a patient on nicotine replacement therapy is actively using a tobacco product, the presence of anabasine in URINE indicates recent tobacco use. Anabasine is a tobacco alkaloid not present in nicotine replacement products. This test was developed and its performance characteristics determined by [facility]'s Obdulio Pastor [facility]. It has not been cleared or approved by the FDA. [facility] is authorized under CLIA to perform high-complexity testing. This test is used for clinical purposes. It should not be regarded as investigational or for research. Performed By: #### 2 4323-8 #### [facility] CLIA [id number] 1 [place] [address] [place] Nicotine [Mass/Vol] <2 Normal <2 [facility] Comment on above: Order Comment: Speci men Type: BLOOD SPECIMEN Performed By: #### 2 4323-8 #### [facility] CLIA [id number] 1 [place] [address] [place] STAPH AUREUS PCRon 1 S. aureus and MRSA panel REINALDO+probe (Nose) Normal Negative [facility] Comment on above: Order Comment: Speci men Type: BLOOD SPECIMEN Result Comment: Nega tive for Staphylococcus aureus by PCR. Negative for MRSA by PCR Performed By: #### 5 8410-2 #### [facility] CLIA [id number] [address] TYPE AND SCREEN,30 DAYon ABO B Normal [facility] Comment on above: Order Comment: Speci men Type: BLOOD SPECIMEN Performed By: #### T SCR30 #### [facility] CLIA [id number] [address] HISTORICAL AB SCR STATUS Negative [facility] Comment on above: Order Comment: Speci men Type: BLOOD SPECIMEN Performed By: #### T SCR30 #### [facility] CLIA [id number] [address] Rh Nom (Bld) Positive [facility] Comment on above: Order Comment: Speci men Type: BLOOD SPECIMEN Performed By: #### T SCR30 #### [facility] CLIA [id number] [address] TYPE AND SCREEN EXPIRATION 07/05/2021 23:59 Normal [facility] Comment on above: Order Comment: Speci men Type: BLOOD SPECIMEN Performed By: #### T SCR30 #### [facility] CLIA [id number] [address] CNCOon 06-02-2021 CNCO Letter Text [facility] CNPNon 05-02-2021 CNPN Telephone (AGPOB1) -- JASON MOORE ([id number]) 1970 M Date Time Provider Department 05/02/21 MARCK, FLIP C AGPOB1 During your visit today, we recorded the following information about you: Sean Bose 05/02/2021 9:40 AM Signed Voicemail left for patient to return my call to reschedule surgery per Dr. Gonzalez. Sean Bose May 02, 2021 9:40 AM Allergies As of Date: 05/02/2021 Noted Allergy Reaction ATIVAN (LORAZEPAM) 06/10/2016 8 - GI Upset PAXIL (PAROXETINE HCL) 12/25/2015 8 - GI Upset Comments: diarrhea ZOLOFT (SERTRALINE) 06/10/2016 8 - GI Upset Date Reviewed: 04/29/2021 Reviewed by: Shikha Kan APRN.SONOGRAPHY TECHNICIAN - Fully Assessed Reason for Visit: Schedule Surgery [1330] Cmt: reschedule Prescriptions as of 05/02/2021 - chlorhexidine (HIBICLENS) 4 % external liquid Apply to affected area once daily for 5 days. Wash from the neck down once daily for 5 days. Start on 05/01/21 - mupirocin (BACTROBAN) 2% oint Use 0.5 g in the nose twice daily for 5 days. - metoprolol succinate ER (TOPROL XL) 25 mg 24 hr tablet Take 1 tablet by mouth once daily. - lisinopril-hydroCHLOROthia zide (PRINZIDE,ZESTORETIC) 20-12.5 mg per tablet Take 1 tablet by mouth every morning. - gabapentin (NEURONTIN) 300 mg capsule Take 1 capsule by mouth three times daily for 90 days. Problem List As Of Date 05/02/2021 Noted Resolved Left-sided low back pain without sciatica [M54.*07/03/2011 Essential hypertension with goal blood pressure*06/28/2014 Palpitations [R00.2] 06/28/2014 Mixed hyperlipidemia [E78.2] 06/28/2014 Well adult exam [Z00.00] 06/28/2014 Neurofibroma [D36.10] 08/13/2014 Family history of malignant neoplasm of gastroi*09/28/2014 09/28/2014 Agoraphobia [F40.00] 01/24/2015 Situational anxiety [F41.8] 01/24/2015 Fatty liver [K76.0] 03/28/2016 Elevated LFTs [R79.89] 03/28/2016 Chronic bilateral low back pain without sciatic*06/10/2016 Prostate cancer screening [Z12.5] 07/10/2016 Smoker [F17.200] 07/10/2016 Alcohol use [Z72.89] 07/10/2016 Obesity, Class II, BMI 35-39.9 [E66.9] 12/16/2020 Cervical radiculopathy [M54.12] 12/16/2020 Acute pain of right shoulder [M25.511] 12/18/2020 03/28/2021 ABDULAZIZ (generalized anxiety disorder) [F41.1] 03/17/2021 Spinal stenosis of cervical region [M48.02] 03/26/2021 Heart rate fast [R00.0] JOSELITO (obstructive sleep apnea) [G47.33] Encounter Status:Closed by SEAN BOSE on 05/02/21 [facility] CNPN Telephone (AGPOB1) -- JASON MOORE ([id number]) 1970 M Date Time Provider Department 05/02/21 [facility] During your visit today, we recorded the following information about you: Sean Bose 05/02/2021 2:38 PM Signed Employer forms faxed as requested. Sean Bose May 02, 2021 2:38 PM Allergies As of Date: 05/02/2021 Noted Allergy Reaction ATIVAN (LORAZEPAM) 06/10/2016 8 - GI Upset PAXIL (PAROXETINE HCL) 12/25/2015 8 - GI Upset Comments: diarrhea ZOLOFT (SERTRALINE) 06/10/2016 8 - GI Upset Date Reviewed: 04/29/2021 Reviewed by: Shikha Kan APRN.SONOGRAPHY TECHNICIAN - Fully Assessed Reason for Visit: Forms [913] Prescriptions as of 05/02/2021 - chlorhexidine (HIBICLENS) 4 % external liquid Apply to affected area once daily for 5 days. Wash from the neck down once daily for 5 days. Start on 05/01/21 - mupirocin (BACTROBAN) 2% oint Use 0.5 g in the nose twice daily for 5 days. - metoprolol succinate ER (TOPROL XL) 25 mg 24 hr tablet Take 1 tablet by mouth once daily. - lisinopril-hydroCHLOROthia zide (PRINZIDE,ZESTORETIC) 20-12.5 mg per tablet Take 1 tablet by mouth every morning. - gabapentin (NEURONTIN) 300 mg capsule Take 1 capsule by mouth three times daily for 90 days. Problem List As Of Date 05/02/2021 Noted Resolved Left-sided low back pain without sciatica [M54.*07/03/2011 Essential hypertension with goal blood pressure*06/28/2014 Palpitations [R00.2] 06/28/2014 Mixed hyperlipidemia [E78.2] 06/28/2014 Well adult exam [Z00.00] 06/28/2014 Neurofibroma [D36.10] 08/13/2014 Family history of malignant neoplasm of gastroi*09/28/2014 09/28/2014 Agoraphobia [F40.00] 01/24/2015 Situational anxiety [F41.8] 01/24/2015 Fatty liver [K76.0] 03/28/2016 Elevated LFTs [R79.89] 03/28/2016 Chronic bilateral low back pain without sciatic*06/10/2016 Prostate cancer screening [Z12.5] 07/10/2016 Smoker [F17.200] 07/10/2016 Alcohol use [Z72.89] 07/10/2016 Obesity, Class II, BMI 35-39.9 [E66.9] 12/16/2020 Cervical radiculopathy [M54.12] 12/16/2020 Acute pain of right shoulder [M25.511] 12/18/2020 03/28/2021 ABDULAZIZ (generalized anxiety disorder) [F41.1] 03/17/2021 Spinal stenosis of cervical region [M48.02] 03/26/2021 Heart rate fast [R00.0] JOSELITO (obstructive sleep apnea) [G47.33] Encounter Status:Closed by SEAN BOSE on 05/02/21 [facility] OBSOLETEon 05-01-2021 OBSOLETE Refill (AGPOB1) -- MOOREJASON ([id number]) 1970 M Date Time Provider Department 05/01/21 FLIP GONZALEZ AGPOB1 During your visit today, we recorded the following information about you: Sean Juice 05/01/2021 9:59 AM Signed Presurgical labs - patient is positive for MRSA. MRSA protocol routed to Dr. Gonzalez to review/sign. Sean Bose May 01, 2021 9:59 AM Allergies As of Date: 05/01/2021 Noted Allergy Reaction ATIVAN (LORAZEPAM) 06/10/2016 8 - GI Upset PAXIL (PAROXETINE HCL) 12/25/2015 8 - GI Upset Comments: diarrhea ZOLOFT (SERTRALINE) 06/10/2016 8 - GI Upset Date Reviewed: 04/29/2021 Reviewed by: Shikha Kan APRN.SONOGRAPHY TECHNICIAN - Fully Assessed Primary Visit Diagnosis:MRSA (methicillin resistant staph aureus) culture positive [Z22.322] Order(s):chlorhexidine (HIBICLENS) 4 % external liquidApply to affected area once daily for 5 days. Wash from the neck down once daily for 5 days. Start on 05/01/21Disp: 472 mLRfl: 0 mupirocin (BACTROBAN) 2% ointUse 0.5 g in the nose twice daily for 5 days.Disp: 5 gRfl: 0 Prescriptions as of 05/01/2021 - chlorhexidine (HIBICLENS) 4 % external liquid Apply to affected area once daily for 5 days. Wash from the neck down once daily for 5 days. Start on 05/01/21 - mupirocin (BACTROBAN) 2% oint Use 0.5 g in the nose twice daily for 5 days. - metoprolol succinate ER (TOPROL XL) 25 mg 24 hr tablet Take 1 tablet by mouth once daily. - lisinopril-hydroCHLOROthia zide (PRINZIDE,ZESTORETIC) 20-12.5 mg per tablet Take 1 tablet by mouth every morning. - gabapentin (NEURONTIN) 300 mg capsule Take 1 capsule by mouth three times daily for 90 days. Problem List As Of Date 05/01/2021 Noted Resolved Left-sided low back pain without sciatica [M54.*07/03/2011 Essential hypertension with goal blood pressure*06/28/2014 Palpitations [R00.2] 06/28/2014 Mixed hyperlipidemia [E78.2] 06/28/2014 Well adult exam [Z00.00] 06/28/2014 Neurofibroma [D36.10] 08/13/2014 Family history of malignant neoplasm of gastroi*09/28/2014 09/28/2014 Agoraphobia [F40.00] 01/24/2015 Situational anxiety [F41.8] 01/24/2015 Fatty liver [K76.0] 03/28/2016 Elevated LFTs [R79.89] 03/28/2016 Chronic bilateral low back pain without sciatic*06/10/2016 Prostate cancer screening [Z12.5] 07/10/2016 Smoker [F17.200] 07/10/2016 Alcohol use [Z72.89] 07/10/2016 Obesity, Class II, BMI 35-39.9 [E66.9] 12/16/2020 Cervical radiculopathy [M54.12] 12/16/2020 Acute pain of right shoulder [M25.511] 12/18/2020 03/28/2021 ABDULAZIZ (generalized anxiety disorder) [F41.1] 03/17/2021 Spinal stenosis of cervical region [M48.02] 03/26/2021 Heart rate fast [R00.0] JOSELITO (obstructive sleep apnea) [G47.33] Prescriptions ordered this encounter Disp Refills Start End CHLORHEXIDINE GLUCONATE 4 % TOPICAL * 472 * 0 05/01/2021 05/06/2021 Route: TOPICAL Sig: Apply to affected area once daily for 5 days. Wash from the neck down once daily for 5 days. Start on 05/01/21 MUPIROCIN 2 % NASAL OINTMENT (BACTRO* 5 g 0 05/01/2021 05/06/2021 Class: Print RX Route: NASAL Sig: Use 0.5 g in the nose twice daily for 5 days. Encounter Status:Closed by FLIP GONZALEZ on 05/01/21 Normal [facility] CBC panel Auto (Bld)on 04-29 Erythrocyte distribution width (RBC) [Ratio] 11.9 % Normal 11.5-15.0 [facility] Comment on above: Order Comment: Speci men Type: BLOOD SPECIMEN Performed By: #### 5 8410-2 #### [facility] CLIA [id number] [address] Hematocrit (Bld) [Volume fraction] 47.4 % Normal 39.0-51.0 [facility] Comment on above: Order Comment: Speci men Type: BLOOD SPECIMEN Performed By: #### 5 8410-2 #### [facility] CLIA [id number] [address] Hemoglobin (Bld) [Mass/Vol] 16.2 g/dL Normal 13.0-17.0 [facility] Comment on above: Order Comment: Speci men Type: BLOOD SPECIMEN Performed By: #### 5 8410-2 #### [facility] CLIA [id number] [address] MCH (RBC) [Entitic mass] 34.0 pg Normal 26.0-34.0 [facility] Comment on above: Order Comment: Speci men Type: BLOOD SPECIMEN Performed By: #### 5 8410-2 #### [facility] CLIA [id number] [address] MCHC (RBC) [Mass/Vol] 34.2 g/dL Normal 30.5-36.0 [facility] Comment on above: Order Comment: Speci men Type: BLOOD SPECIMEN Performed By: #### 5 8410-2 #### [facility] CLIA [id number] [address] MCV (RBC) [Entitic vol] 99.4 fL Normal 80.0-100.0 [facility] Comment on above: Order Comment: Speci men Type: BLOOD SPECIMEN Performed By: #### 5 8410-2 #### [facility] CLIA [id number] [address] Nucleated RBC (Bld) [#/Vol] 10*3/uL Normal <0.01 [facility] Comment on above: Order Comment: Speci men Type: BLOOD SPECIMEN Performed By: #### 5 8410-2 #### [facility] CLIA [id number] [address] Platelet mean volume (Bld) [Entitic vol] 11.4 fL Normal 9.0-12.7 [facility] Comment on above: Order Comment: Speci men Type: BLOOD SPECIMEN Performed By: #### 5 8410-2 #### [facility] CLIA [id number] [address] Platelets (Bld) [#/Vol] 237 10*3/uL Normal 150-400 [facility] Comment on above: Order Comment: Speci men Type: BLOOD SPECIMEN Performed By: #### 5 8410-2 #### [facility] CLIA [id number] [address] RBC (Bld) [#/Vol] 4.77 10*6/uL Normal 4.20-6.00 [facility] Comment on above: Order Comment: Speci men Type: BLOOD SPECIMEN Performed By: #### 5 8410-2 #### [facility] CLIA [id number] [address] WBC (Bld) [#/Vol] 7.08 10*3/uL Normal 3.70-11.00 [facility] Comment on above: Order Comment: Speci men Type: BLOOD SPECIMEN Performed By: #### 5 8410-2 #### [facility] CLIA [id number] [address] CONFIRM BLOOD TYPEon 021 ABO B Normal [facility] Comment on above: Order Comment: Speci men Type: BLOOD SPECIMEN Performed By: #### C ONABO ####[facility] [id number] [address] Rh Nom (Bld) Positive Normal [facility] Comment on above: Order Comment: Speci men Type: BLOOD SPECIMEN Performed By: #### C ONABO ####[facility] [id number] [address] Comprehensive metabolic 2000 panelon 04-29-2021 Albumin [Mass/Vol] 4.6 g/dL Normal 3.9-4.9 [facility] Comment on above: Order Comment: Speci men Type: BLOOD SPECIMEN Performed By: #### 2 4323-8 #### [facility] CLIA [id number] [address] ALP [Catalytic activity/Vol] 81 U/L Normal 38-113 [facility] Comment on above: Order Comment: Speci men Type: BLOOD SPECIMEN Performed By: #### 2 4323-8 #### [facility] CLIA [id number] [address] ALT With P-5'-P [Catalytic activity/Vol] 80 U/L High 10-54 [facility] Comment on above: Order Comment: Speci men Type: BLOOD SPECIMEN Performed By: #### 2 4323-8 #### [facility] CLIA [id number] [address] Anion gap [Moles/Vol] 10 mmol/L Normal 9-18 [facility] Comment on above: Order Comment: Speci men Type: BLOOD SPECIMEN Performed By: #### 2 4323-8 #### [facility] CLIA [id number] [address] AST With P-5'-P [Catalytic activity/Vol] 74 U/L High 14-40 [facility] Comment on above: Order Comment: Speci men Type: BLOOD SPECIMEN Performed By: #### 2 4323-8 #### [facility] CLIA [id number] [address] Bilirubin [Mass/Vol] 0.6 mg/dL Normal 0.2-1.3 [facility] Comment on above: Order Comment: Speci men Type: BLOOD SPECIMEN Performed By: #### 2 4323-8 #### [facility] CLIA [id number] [address] Calcium [Mass/Vol] 10.1 mg/dL Normal 8.5-10.2 [facility] Comment on above: Order Comment: Speci men Type: BLOOD SPECIMEN Performed By: #### 2 4323-8 #### [facility] CLIA [id number] [address] Chloride [Moles/Vol] 97 mmol/L Normal 97-105 [facility] Comment on above: Order Comment: Speci men Type: BLOOD SPECIMEN Performed By: #### 2 4323-8 #### [facility] CLIA [id number] [address] CO2 [Moles/Vol] 28 mmol/L Normal 22-30 [facility] Comment on above: Order Comment: Speci men Type: BLOOD SPECIMEN Performed By: #### 2 4323-8 #### [facility] CLIA [id number] [address] Creatinine [Mass/Vol] 1.36 mg/dL High 0.73-1.22 [facility] Comment on above: Order Comment: Speci men Type: BLOOD SPECIMEN Performed By: #### 2 4323-8 #### [facility] CLIA [id number] [address] GFR/1.73 sq M.predicted MDRD (S/P/Bld) [Vol rate/Area] mL/min/{1.73_m2} Normal [facility] Comment on above: Order Comment: Speci men Type: BLOOD SPECIMEN Result Comment: 56 eGFR (Estimated GFR) Units of measure: mL/min/1.73 meters squared eGFR is derived from the reexpressed MDRD Study equation using the following parameters: serum creatinine, age, gender and race. The creatinine assay has been calibrated to be traceable to IDMS. An eGFR <60 mL/min/1.73m2 for >3 months is consistent with chronic kidney disease. Refer to KDOQI guidelines for clinical interpretation. In patients with unstable renal function, e.g. those with acute kidney injury, the eGFR may not accurately reflect actual GFR. Performed By: #### 2 4323-8 #### [facility] CLIA [id number] 1 [place] [address] [place] Glucose [Mass/Vol] 150 mg/dL High 74-99 [facility] Comment on above: Order Comment: Althea men Type: BLOOD SPECIMEN Result Comment: The [place] Diabetes Association (ADA) provides guidance for cutoff values for fasting glucose and random glucose. The ADA defines fasting as no caloric intake for at least 8 hours. Fasting plasma glucose results between 100 to 125 mg/dL indicate increased risk for diabetes (prediabetes). Fasting plasma glucose results greater than or equal to 126 mg/dL meet the criteria for diagnosis of diabetes. In the absence of unequivocal hyperglycemia, results should be confirmed by repeat testing. In a patient with classic symptoms of hyperglycemia or hyperglycemic crisis, random plasma glucose results greater than or equal to 200 mg/dL meet the criteria for diagnosis of diabetes. Reference: Standards of Medical Care in Diabetes 2016, [place] Diabetes Association. Diabetes Care. 2016.39(Suppl 1). Performed By: #### 2 4323-8 #### [facility] CLIA [id number] 1 [place] [address] [place] Potassium [Moles/Vol] 4.0 mmol/L Normal 3.7-5.1 [facility] Comment on above: Order Comment: Althea clarissa Type: BLOOD SPECIMEN Performed By: #### 2 4323-8 #### [facility] CLIA [id number] 1 [place] [address] [place] Protein [Mass/Vol] 7.9 g/dL Normal 6.3-8.0 [facility] Comment on above: Order Comment: Speci men Type: BLOOD SPECIMEN Performed By: #### 2 4323-8 #### [facility] CLIA [id number] [address] Sodium [Moles/Vol] 135 mmol/L Low 136-144 [facility] Comment on above: Order Comment: Speci men Type: BLOOD SPECIMEN Performed By: #### 2 4323-8 #### [facility] CLIA [id number] [address] Urea nitrogen [Mass/Vol] 15 mg/dL Normal 9-24 [facility] Comment on above: Order Comment: Speci men Type: BLOOD SPECIMEN Performed By: #### 2 4323-8 #### [facility] CLIA [id number] [address] HISTORY PHYSICALon HISTORY PHYSICAL HNO ID: [id number] Author: Shikha Kan APRN.MELISSA Service: ? Author Type: Nurse Practitioner Type: HANDP Filed: 04/29/2021 11:52 AM Note Text: HISTORY AND PHYSICAL EXAMINATION SERVICE DATE: 04/29/2021 SERVICE TIME: 1120 PRIMARY CARE PHYSICIAN: Kota Barba APRN.SONOGRAPHY TECHNICIAN, DNP REASON FOR VISIT: Jason Moore is a 50 year old male who is scheduled for Procedure(s): C5-C6 ANTERIOR CERVICAL DISCECTOMY AND FUSION (N/A) C6-C7 ANTERIOR CERVICAL DISCECTOMY AND FUSION (N/A) at the request of Dr. Flip Gonzalez for routine HANDP. My final recommendation will be communicated back to the requesting physician by way of shared medical record or letter. Subjective The patient has the following: ACTIVE PROBLEM LIST Left-Sided Low Back Pain Without Sciatica Essential Hypertension With Goal Blood Pressure Less Than 140/90 Palpitations Mixed Hyperlipidemia Well Adult Exam Neurofibroma Agoraphobia Situational Anxiety Fatty Liver Elevated Lfts Chronic Bilateral Low Back Pain Without Sciatica Prostate Cancer Screening Smoker Alcohol Use Obesity, Class II, Bmi 35-39.9 Cervical Radiculopathy Abdulaziz (Generalized Anxiety Disorder) Spinal Stenosis of Cervical Region Heart Rate Fast Joselito (Obstructive Sleep Apnea) CHIEF COMPLAINT: Neck pain HPI: This is a 50 year old male that presents today for presurgical testing with c/o above. Patient has a h/o cervical spine stenosis. He has had discs replaced and cervical fusions in 2011. He has had injections in his cervical spine for pain control, most recently 02/18/2021. Patient denies any known injury or trauma to area. Patient reports pain today is about a 2/10, reports numbness, tingling, and weakness radiating down arms, more so on the right. Patient is right-handed. He takes Neurontin for symptom control. Denies any recent fevers or chills. Patient has met with surgeon and has agreed to surgical intervention. REVIEW OF SYSTEMS: General: No weight loss, malaise or fevers. Neurological: No history of TIA's, stroke, [employer] HE[employer] DENTIST tumor, impaired sensorium, hemiplegia, paraplegia or quadraplegia. No neurological symptoms or problems. Respiratory: Positive for: tobacco use and obstructive sleep apnea (resolved weight loss ). Negative for: asthma, COPD, dyspnea, home oxygen, pneumonia within 6 weeks and URI < 2 weeks. Cardiovascular: tachycardia Positive for: hyperlipidemia and hypertension Negative for: atrial fibrillation, CAD, chest pain, CHF and DVT/PE. GI: Positive for: liver disease (fatty liver ) Negative for: nausea and vomiting. : No history of dysuria, frequency or incontinence, stones or chronic kidney disease. No difficulty urinating, nocturia > 1 time per night or hematuria. Endocrine: No history of diabetes. Has not taken steroids within the past 30 days. No history of endocrinological symptoms or problems. Hematology: No history of bleeding or clotting disorder. Patient is not taking anti-coagulation or platelet medications. No history of hematological symptoms or problems. Oncology: No history of CA metastasis, chemo within 30 days, or radiotherapy within 90 days. No history of oncological symptoms or problems. Psych: Positive for: anxiety. Negative for: drug dependency. Musculoskeletal: See HPI Skin: Negative for lesions, rash and itching. PAST MEDICAL HISTORY Diagnosis Date - Alcohol use 07/10/2016 3-5 day - Back pain - Cervical radiculopathy 12/16/2020 - Fatty liver 03/28/2016 - Heart rate fast on BB - Hypertension - Mixed hyperlipidemia 06/28/2014 - Obesity, Class II, BMI 35-39.9 12/16/2020 - JOSELITO (obstructive sleep apnea) resolved with weight loss - Spinal stenosis in cervical region PAST SURGICAL HISTORY Procedure Laterality Date - APPL-INTERVERTEBRAL BIOMECHANICAL DEVICES - COLONOSCOP W/ OR W/O BRSH SPEC 09/28/2014 Colonoscopy, repeat 5 yrs - INSERT VERT FIX DEV,ANT,3 SGMTS - PAST SURGICAL HISTORY OF back injections and disc biopsy - SPIN BONE ALLOGRFT STRUCTURAL 08/30/2011 FUSION AND REPLACED DISC lumbar FAMILY HISTORY Problem Relation Age of Onset [...] years: 10.50 - Smokeless tobacco: Never Used Vaping Use - Vaping Use: Never used Substance Use Topics - Alcohol use: Yes Comment: moderate amount (more content not included)... Normal [facility] NICOTINE/COTININEon 04-29-20 21 Cotinine [Mass/Vol] 13 ng/mL High <2 [facility] Comment on above: Order Comment: Speci men Type: BLOOD SPECIMEN Performed By: #### 5 8410-2 #### [facility] CLIA [id number] 1 [place] [address] [place] Nicotine [Mass/Vol] <2 Normal <2 [facility] Comment on above: Order Comment: Speci men Type: BLOOD SPECIMEN Performed By: #### 5 8410-2 #### [facility] CLIA [id number] 1 [place] [address] [place] NORNICOTINE Absent Normal AB [facility] Comment on above: Order Comment: Speci men Type: BLOOD SPECIMEN Result Comment: (NOT E) WHILE USING A TOBACCO PRODUCT: Peak Nicotine concentration: 30 ng/mL to 50 ng/mL Peak Cotinine concentration: 200 ng/mL to 800 ng/mL (Higher Cotinine values may be seen in subjects with high cytochrome P450 2D6 activity.) TOBACCO USER AFTER TWO WKS OF COMPLETE ABSTINENCE: Nicotine concentration: <2.0 ng/mL Cotinine concentration: <2.0 ng/mL NONTOBACCO USER WITH PASSIVE EXPOSURE: Nicotine concentration: <2.0 ng/mL Cotinine concentration: <8.0 ng/mL NONTOBACCO USER WITH NO PASSIVE EXPOSURE: Nicotine concentration: <2.0 ng/mL Cotinine concentration: <2.0 ng/mL The presence of nornicotine indicates tobacco or nicotine exposure while its absence does not rule out the exposure. To discriminate if a patient on nicotine replacement therapy is actively using a tobacco product, the presence of anabasine in URINE indicates recent tobacco use. Anabasine is a tobacco alkaloid not present in nicotine replacement products. This test was developed and its performance characteristics determined by [facility]'s Obdulio Dawit [facility]. It has not been cleared or approved by the FDA. [facility] is authorized under CLIA to perform high-complexity testing. This test is used for clinical purposes. It should not be regarded as investigational or for research. Performed By: #### 5 8410-2 #### [facility] CLIA [id number] [address] STAPH AUREUS PCRon S. aureus and MRSA panel REINALDO+probe (Nose) Abnormal Negative [facility] Comment on above: Order Comment: Speci men Type: BLOOD SPECIMEN Result Comment: Posi tive for Staphylococcus aureus by PCR. Negative for MRSA by PCR Performed By: #### 5 8410-2 #### [facility] CLIA [id number] [address] TYPE AND SCREEN,30 DAYon ABO B Normal [facility] Comment on above: Order Comment: Speci men Type: BLOOD SPECIMEN Performed By: #### T SCR30 #### [facility] CLIA [id number] [address] HISTORICAL AB SCR STATUS Negative Normal [facility] Comment on above: Order Comment: Speci men Type: BLOOD SPECIMEN Performed By: #### T SCR30 #### [facility] CLIA [id number] [address] Rh Nom (Bld) Positive Normal [facility] Comment on above: Order Comment: Speci men Type: BLOOD SPECIMEN Performed By: #### T SCR30 #### [facility] CLIA [id number] 1 [place] [address] [facility] TYPE AND SCREEN EXPIRATION 05/29/2021 23:59 Normal [facility] Comment on above: Order Comment: Speci men Type: BLOOD SPECIMEN Performed By: #### T SCR30 #### [facility] CLIA [id number] [address] CNCOon 04-08-2021 CNCO Letter Text [facility] CNPNon 03-28-2021 CNPN Telephone (WALDEMARAGACarmudi) -- JASON MOORE ([id number]) 1970 M Date Time Provider Department 03/28/21 FLIP GONZALEZ During your visit today, we recorded the following information about you: Alexa Huddleston MA 03/28/2021 8:54 AM Signed Spoke to patient informed him of CT Cervical Spine scheduled at [place] on 04/11/2021 @ 9:00am, and f/u with Dr. Marcos scheduled 04/16/21 @ 10:45am. Allergies As of Date: 03/28/2021 Noted Allergy Reaction ATIVAN (LORAZEPAM) 06/10/2016 8 - GI Upset PAXIL (PAROXETINE HCL) 12/25/2015 8 - GI Upset Comments: diarrhea ZOLOFT (SERTRALINE) 06/10/2016 8 - GI Upset Date Reviewed: 03/26/2021 Reviewed by: Mirta Valderrama MA - Fully Assessed Reason for Visit: Future Appointment [256] Cmt: for CT Cervical and f/u with Dr. Larios as of 03/28/2021 - lisinopril-hydroCHLOROthia zide (PRINZIDE,ZESTORETIC) 20-12.5 mg per tablet Take 1 tablet by mouth every morning. - gabapentin (NEURONTIN) 300 mg capsule Take 1 capsule by mouth three times daily for 90 days. - metoprolol succinate ER (TOPROL XL) 25 mg 24 hr tablet Take 1 tablet by mouth once daily. Problem List As Of Date 03/28/2021 Noted Resolved Left-sided low back pain without sciatica [M54.*07/03/2011 Essential hypertension with goal blood pressure*06/28/2014 Palpitations [R00.2] 06/28/2014 Mixed hyperlipidemia [E78.2] 06/28/2014 Well adult exam [Z00.00] 06/28/2014 Neurofibroma [D36.10] 08/13/2014 Family history of malignant neoplasm of gastroi*09/28/2014 09/28/2014 Agoraphobia [F40.00] 01/24/2015 Situational anxiety [F41.8] 01/24/2015 Fatty liver [K76.0] 03/28/2016 Elevated LFTs [R79.89] 03/28/2016 Chronic bilateral low back pain without sciatic*06/10/2016 Prostate cancer screening [Z12.5] 07/10/2016 Smoker [F17.200] 07/10/2016 Alcohol use [Z72.89] 07/10/2016 Obesity, Class II, BMI 35-39.9 [E66.9] 12/16/2020 Cervical radiculopathy [M54.12] 12/16/2020 Acute pain of right shoulder [M25.511] 12/18/2020 03/28/2021 ABDULAZIZ (generalized anxiety disorder) [F41.1] 03/17/2021 Spinal stenosis of cervical region [M48.02] 03/26/2021 Encounter Status:Closed by ALEXA HUDDLESTNO on 03/28/21 [facility] Jose 03-26-2021 CNOV Office Visit (AGCMR) -- JASON MOORE ([id number]) 1970 M Date Time Provider Department 03/26/21 11:00 AM FLIP GONZALEZ During your visit today, we recorded the following information about you: Temperature Pulse Respiration Blood pressure 98.5 degrees 85/minute 18/minute 146/101 Weight Height 112 kg 1.753 m Flip Gonzalez MD 03/26/2021 11:30 AM Signed Flip Gonzalez M.D. [facility] General Orthopedics - Orthopedic Spine Surgeon [address] [facility], [facility] [address] [facility] [address] [address] [facility] [address], [facility] [address] Phone: [phone] ([employer]) FAX: [phone] ([employer]) SPINE SURGERY OUTPATIENT CONSULT SERVICE DATE: 03/26/2021 PCP: Kota Barba APRN.SONOGRAPHY TECHNICIAN, DNP CHIEF COMPLAINT: neck pain HISTORY OF PRESENT ILLNESS Jason Moore is a 50 year old male presenting with spouse. Mr. Moore presents as a new patient, referred by the [facility] for complaints of neck pain and right arm radicular symptoms since October. He describes neck pain with radiation into his right trapezius, down into his right lateral arm with weakness in his right tricep and numbness in the hand. He has undergone multiple sessions of Physical Therapy with some relief. He has also had a C7-T1 injection with some relief of the pain however still having persistent weakness of his hand and numbness/tingling. He has some mild upper extremity weakness in his triceps. He denies left arm symptoms, bowel or bladder issues, or balance problems. PREVIOUS CONSERVATIVE TREATMENTS: Physical Therapy: 01/09/2021, 01/06/2021, 01/03/2021, 12/31/2020, 12/26/2020, 12/23/2020, 12/20/2020, Mobic Flexeril HEP Gabapentin Right C7-T1 paramedian injection 02/18/2021 PREVIOUS SPINE SURGERIES: Low back fusion by [facility]. Umanzor in [facility]- 2010 The following portions of the patient's history were reviewed and updated as appropriate: allergies, current medications, past family history, past medical history, past social history, past surgical history and problem list. ACTIVE PROBLEM LIST Left-Sided Low Back Pain Without Sciatica Essential Hypertension With Goal Blood Pressure Less Than 140/90 Palpitations Mixed Hyperlipidemia Well Adult Exam Neurofibroma Agoraphobia Situational Anxiety Fatty Liver Elevated Lfts Chronic Bilateral Low Back Pain Without Sciatica Prostate Cancer Screening Smoker Alcohol Use Obesity, Class II, Bmi 35-39.9 Cervical Radiculopathy Acute Pain of Right Shoulder Abdulaziz (Generalized Anxiety Disorder) PAST MEDICAL HISTORY Diagnosis Date - Alcohol use 07/10/2016 3-5 day - Back pain - Cervical radiculopathy 12/16/2020 - Fatty liver 03/28/2016 - Hypertension - Mixed hyperlipidemia 06/28/2014 - Obesity, Class II, BMI 35-39.9 12/16/2020 PAST SURGICAL HISTORY Procedure Laterality Date - APPL-INTERVERTEBRAL BIOMECHANICAL DEVICES - COLONOSCOP W/ OR W/O BRSH SPEC 09/28/14 Colonoscopy, repeat 5 yrs - INSERT VERT FIX DEV,ANT,3 SGMTS - PAST SURGICAL HISTORY OF back injections and disc biopsy - SPIN BONE ALLOGRFT STRUCTURAL 2012 FUSION AND REPLACED DISC FAMILY HISTORY Problem Relation Age of Onset [...] alcohol - Drug use: Not on file ALLERGIES Allergen Reactions - Ativan [Lorazepam] GI Upset - Paxil [Paroxetine H* GI Upset diarrhea - Zoloft [Sertraline] GI Upset MEDICATIONS: lisinopril-hydroCHLOROthia zide (PRINZIDE,ZESTORETIC) 20-12.5 mg per tablet Take 1 tablet by mouth every morning. gabapentin (NEURONTIN) 300 mg capsule Take 1 capsule by mouth three times daily for 90 days. metoprolol succinate ER (TOPROL XL) 25 mg 24 hr tablet Take 1 tablet by mouth once daily. REVIEW OF SYSTEMS Review of Systems Constitutional: Negative for chills, diaphoresis and fever. HENT: Negative for congestion, drooling and tinnitus. Eyes: Negative for photophobia, redness and visual disturbance. Respiratory: Negative for cough, shortness of breath and wheezing. Cardiovascular: Negative for chest pain, palpitations and leg swelling. Gastrointestin (more content not included)... Normal [facility] No Panel Informationon 12-16 Radiology Study observation (narrative) [facility] XR CERV OTHER 4V AP/LAT/FLX/ EXTon 12-16-2020 IMPRESSION: REVERSAL OF THE NORMAL LORDOSIS. DEGENERATIVE CHANGES MOST PRONOUNCED AT C5-6 [employer] Supervisor: LAURENT Transcribe Date/Time: Dec 16 2020 2:43P Dictated by : STORMY JURADO MD This examination was interpreted and the report reviewed and electronically signed by: STORMY JURADO MD on Dec 16 2020 2:46PM [facility] DIVISION OF RADIOLOGY * * *Final Report* * * DATE OF EXAM: Dec 16 2020 2:26PM WOX 5310 - XR CERVICAL 4V AP/LAT/FLX/EXT / PROCEDURE REASON: Cervical radiculopathy * * * * Physician Interpretation * * * * Examination: XR CERVICAL 4V AP/LAT/FLX/EXT History: Cervical radiculopathy 50-year-old male with a 1 month history of right cervical radiculopathy and righ t shoulder pain. Pain within the triceps region. No improvement with steroid d osing, rest and conservative treatment. No trauma. Please evaluate Technique: XR CERVICAL 4V AP/LAT/FLX/EXT Comparison: None RESULT: Straightening of the normal lordosis with reversal of the curve. Moderate spondylosis, osteophytosis and disc space narrowing is seen at C5-6. No significant dynamic instability in flexion or extension. No fracture or prevertebral swelling. Normal mineralization DIVISION OF RADIOLOGY Provider, [facility] - 12/16/2020 * * *Final Report* * * DATE OF EXAM: Dec 16 2020 2:26PM WOX 5310 - XR CERVICAL 4V AP/LAT/FLX/EXT / PROCEDURE REASON: Cervical radiculopathy * * * * Physician Interpretation * * * * Examination: XR CERVICAL 4V AP/LAT/FLX/EXT History: Cervical radiculopathy 50-year-old male with a 1 month history of right cervical radiculopathy and righ t shoulder pain. Pain within the triceps region. No improvement with steroid d osing, rest and conservative treatment. No trauma. Please evaluate Technique: XR CERVICAL 4V AP/LAT/FLX/EXT Comparison: None RESULT: Straightening of the normal lordosis with reversal of the curve. Moderate spondylosis, osteophytosis and disc space narrowing is seen at C5-6. No significant dynamic instability in flexion or extension. No fracture or prevertebral swelling. Normal mineralization IMPRESSION IMPRESSION: REVERSAL OF THE NORMAL LORDOSIS. DEGENERATIVE CHANGES MOST PRONOUNCED AT C5-6 [employer] Supervisor: [facility] Transcribe Date/Time: Dec 16 2020 2:43P Dictated by : STORMY JURADO MD This examination was interpreted and the report reviewed and electronically signed by: STORMY JURADO MD on Dec 16 2020 2:46PM EST [facility] XR CERV OTHER 4V AP/LAT/FLX/ EXTOrdered By: [facility] Provider on 12-16-2020 [facility] XR Shoulder - right 2 Viewso n 12-16-2020 IMPRESSION: NORMAL RIGHT SHOULDER [employer] Supervisor: [facility] Transcribe Date/Time: Dec 16 2020 2:47P Dictated by : STORMY JURADO MD This examination was interpreted and the report reviewed and electronically signed by: STORMY JURADO MD on Dec 16 2020 2:48PM EST DIVISION OF RADIOLOGY * * *Final Report* * * DATE OF EXAM: Dec 16 2020 2:26PM WOX 5255 - XR SHOULDER 2V AP/TRUE AP RT / PROCEDURE REASON: Acute pain of right shoulder * * * * Physician Interpretation * * * * Examination: XR SHOULDER 2V AP/TRUE AP RT History: Acute pain of right shoulder 50-year-old male with a 1 month history of right cervical radiculopathy and righ t shoulder pain. Pain within the triceps region. No improvement with steroid d osing, rest and conservative treatment. No trauma. Please evaluate Technique: XR SHOULDER 2V AP/TRUE AP RT Comparison: None RESULT: Normal mineralization and alignment. No fracture or focal bony abnormality. Humeral head appears in good position within the glenoid fossa. DIVISION OF RADIOLOGY Provider, [facility] - 12/16/2020 * * *Final Report* * * DATE OF EXAM: Dec 16 2020 2:26PM WOX 5255 - XR SHOULDER 2V AP/TRUE AP RT / PROCEDURE REASON: Acute pain of right shoulder * * * * Physician Interpretation * * * * Examination: XR SHOULDER 2V AP/TRUE AP RT History: Acute pain of right shoulder 50-year-old male with a 1 month history of right cervical radiculopathy and righ t shoulder pain. Pain within the triceps region. No improvement with steroid d osing, rest and conservative treatment. No trauma. Please evaluate Technique: XR SHOULDER 2V AP/TRUE AP RT Comparison: None RESULT: Normal mineralization and alignment. No fracture or focal bony abnormality. Humeral head appears in good position within the glenoid fossa. IMPRESSION IMPRESSION: NORMAL RIGHT SHOULDER [employer] Supervisor: [facility] Transcribe Date/Time: Dec 16 2020 2:47P Dictated by : STORMY JURADO MD This examination was interpreted and the report reviewed and electronically signed by: STORMY JURADO MD on Dec 16 2020 2:48PM [facility] RPRon 07-06-2017 Reagin antibody presence Nonreactive Normal Nonreactive [facility] Comment on above: Performed By: #### C BCDIF, UA, PT, GBCHEM, GBTSH, MG, RPR ####[facility] [id number] [place], [place] [phone] CBCDIFon 07-02-2017 Abs Baso 0.04 k/uL Normal 0-0.2 [facility] Comment on above: Performed By: #### C BCDIF, UA, PT, GBCHEM, GBTSH, MG, RPR ####[facility] [id number] [place], [place] [phone] Abs Banner 0.62 k/uL Normal 0-0.8 [facility] Comment on above: Performed By: #### C BCDIF, UA, PT, GBCHEM, GBTSH, MG, RPR ####[facility] Clinical [id number], [place] [phone] Abs Neut 6.33 k/uL Normal 1.8-7.7 [facility] Comment on above: Performed By: #### C BCDIF, UA, PT, GBCHEM, GBTSH, MG, RPR ####[facility] Clinical [id number] [address], [place] [phone] Basophils/100 WBC Auto (Bld) 0.4 % Normal 0-1 [facility] Comment on above: Performed By: #### C BCDIF, UA, PT, GBCHEM, GBTSH, MG, RPR ####[facility] Clinical [id number] [address], [place] [phone] Eosinophils 0.10 10*3/uL Normal 0-0.4 [facility] Comment on above: Performed By: #### C BCDIF, UA, PT, GBCHEM, GBTSH, MG, RPR ####[facility] Clinical [id number] [address], [place] [phone] Eosinophils/100 leukocytes 1.1 % Normal 0-4 [facility] Comment on above: Performed By: #### C BCDIF, UA, PT, GBCHEM, GBTSH, MG, RPR ####[facility] Clinical [id number] [address], [place] [phone] Erythrocyte distribution width Auto Ratio (RBC) 11.9 % Normal 11.5-14.5 [facility] Comment on above: Performed By: #### C BCDIF, UA, PT, GBCHEM, GBTSH, MG, RPR ####[facility] Clinical [id number] [address], [place] [phone] Erythrocytes (RBC) 0 /100 WBC Normal 0-0.9 [facility] Comment on above: Performed By: #### C BCDIF, UA, PT, GBCHEM, GBTSH, MG, RPR ####[facility] Clinical Irn10165 [facility], [place] [phone] Erythrocytes (RBC) 4.71 10*6/uL Normal 4.50-5.90 [facility] Comment on above: Performed By: #### C BCDIF, UA, PT, GBCHEM, GBTSH, MG, RPR ####[facility] Clinical Vtq10912 [facility], [place] [phone] Hematocrit (HCT) 45.1 % Normal 41.0-53.0 [facility] Comment on above: Performed By: #### C BCDIF, UA, PT, GBCHEM, GBTSH, MG, RPR ####[facility] Clinical Lyf59097 [place], [place] [phone] Hemoglobin mass conc (Bld) 15.5 g/dL Normal 13.5-17.5 [facility] Comment on above: Performed By: #### C BCDIF, UA, PT, GBCHEM, GBTSH, MG, RPR ####[facility] Clinical Wnf20786 [facility] CenterS[place], [place] [phone] Immature Gran 0.40 % Normal 0-1.9 [facility] Comment on above: Performed By: #### C BCDIF, UA, PT, GBCHEM, GBTSH, MG, RPR ####[facility] Clinical Mdr24929 [facility] CenterS[place]huSan [place], [place] [phone] Lymphocytes 2.28 10*3/uL Normal 1.0-4.0 [facility] Comment on above: Performed By: #### C BCDIF, UA, PT, GBCHEM, GBTSH, MG, RPR ####[facility] Clinical Xwf51387 [facility], [place] [phone] Lymphocytes/100 leukocytes 24.2 % Normal 22-44 [facility] Comment on above: Performed By: #### C BCDIF, UA, PT, GBCHEM, GBTSH, MG, RPR ####[facility] Clinical [id number] [address], [place] [phone] MCH 32.9 pG Normal 26-34 [facility] Comment on above: Performed By: #### C BCDIF, UA, PT, GBCHEM, GBTSH, MG, RPR ####[facility] Clinical [id number] [address], [place] [phone] MCHC mass conc (RBC) 34.4 g/dL Normal 31-37 [facility] Comment on above: Performed By: #### C BCDIF, UA, PT, GBCHEM, GBTSH, MG, RPR ####[facility] Clinical Qbj42276 [address], [place] [phone] MCV 95.8 fL Normal 80-100 [facility] Comment on above: Performed By: #### C BCDIF, UA, PT, GBCHEM, GBTSH, MG, RPR ####[facility] Clinical Uvw50590 [address], [place] [phone] Monocytes/100 leukocytes 6.6 % Normal 4-12 [facility] Comment on above: Performed By: #### C BCDIF, UA, PT, GBCHEM, GBTSH, MG, RPR ####[facility] Clinical Wqd26005 [address], [place] [phone] Neutrophils/100 WBC Auto (Bld) 67.3 % Normal 40-70 [facility] Comment on above: Performed By: #### C BCDIF, UA, PT, GBCHEM, GBTSH, MG, RPR ####[facility] Clinical Dqr23499 [address], [place] [phone] Platelets 220 10*3/uL Normal 150-450 [facility] Comment on above: Performed By: #### C BCDIF, UA, PT, GBCHEM, GBTSH, MG, RPR ####[facility] Clinical Ygx46236 [address], [place] [phone] WBC (Leukocytes) 9.41 10*3/uL Normal 4.5-11.0 [facility] Comment on above: Performed By: #### C BCDIF, UA, PT, GBCHEM, GBTSH, MG, RPR ####[facility] Clinical [id number] [address], [place] [phone] Willam Garciaon 2016 Alanine aminotransferase (ALT) 71 U/L Normal 21-72 [facility] Comment on above: Performed By: #### C BCDIF, UA, PT, GBCHEM, GBTSH, MG, RPR ####[facility] Aja39458 [address], [place] [phone] Albumin 4.5 g/dL Normal 3.5-5.0 [facility] Comment on above: Performed By: #### C BCDIF, UA, PT, GBCHEM, GBTSH, MG, RPR ####[facility] Nzo52105 [address], [place] [phone] Alkaline Phos 67 U/L Normal 38-125 [facility] Comment on above: Performed By: #### C BCDIF, UA, PT, GBCHEM, GBTSH, MG, RPR ####[facility] Ekl88860 [address], [place] [phone] Amylase 69 U/L Normal 30-110 [facility] Comment on above: Performed By: #### C BCDIF, UA, PT, GBCHEM, GBTSH, MG, RPR ####[facility] Ovt83154 [address], [place] [phone] Anion gap 16 mmol/L High 0-15 [facility] Comment on above: Performed By: #### C BCDIF, UA, PT, GBCHEM, GBTSH, MG, RPR ####[facility] Jhl05114 [address], [place] [phone] Aspartate aminotransferase (AST) 54 U/L Normal 17-59 [facility] Comment on above: Performed By: #### C BCDIF, UA, PT, GBCHEM, GBTSH, MG, RPR ####[facility] Clinical Tow07428 [address], [place] [phone] Bilirubin Ql (U) 1.6 mg/dL High 0.2-1.3 [facility] Comment on above: Performed By: #### C BCDIF, UA, PT, GBCHEM, GBTSH, MG, RPR ####[facility] Epz97101 [address], [place] [phone] Calcium 10.0 mg/dL Normal 8.4-10.2 [facility] Comment on above: Performed By: #### C BCDIF, UA, PT, GBCHEM, GBTSH, MG, RPR ####[facility] Clinical [id number] [address], [place] [phone] Chloride 100 mmol/L Normal 98-107 [facility] Comment on above: Performed By: #### C BCDIF, UA, PT, GBCHEM, GBTSH, MG, RPR ####[facility] Gvo05171 [address], [place] [phone] Cholesterol 308 mg/dL High 100-199 [facility] Comment on above: Performed By: #### C BCDIF, UA, PT, GBCHEM, GBTSH, MG, RPR ####[facility] Clinical [id number] [address], [place] [phone] CO2 25 mmol/L Normal 22-30 [facility] Comment on above: Performed By: #### C BCDIF, UA, PT, GBCHEM, GBTSH, MG, RPR ####[facility] Qrb26168 [address], [place] [phone] Creatinine 1.14 mg/dL Normal 0.66-1.25 [facility] Comment on above: Performed By: #### C BCDIF, UA, PT, GBCHEM, GBTSH, MG, RPR ####[facility] Vqi85342 [address], [place] [phone] eGFR (non-black) mL/min/{1.73_m2} Normal >60 [facility] Comment on above: Performed By: #### C BCDIF, UA, PT, GBCHEM, GBTSH, MG, RPR ####[facility] Clinical Lqx32195 [address], [place] [phone] Result Comment: MDRD calculation used for eGFR results. GGT 199 U/L High 15-73 [facility] Comment on above: Performed By: #### C BCDIF, UA, PT, GBCHEM, GBTSH, MG, RPR ####[facility] Clinical Mvb60523 [facility], [place] [phone] Glucose mass conc 113 mg/dL High 74-106 [facility] Comment on above: Performed By: #### C BCDIF, UA, PT, GBCHEM, GBTSH, MG, RPR ####[facility] Clinical Wpr44866 [place] [facility], [place] [phone] LDH 515 U/L Normal 318-618 [facility] Comment on above: Performed By: #### C BCDIF, UA, PT, GBCHEM, GBTSH, MG, RPR ####[facility] Clinical Zio59636 [place] [facility] Hospitalrdon, [place] [phone] Phosphate 2.9 mg/dL Normal 2.5-4.5 [facility] Comment on above: Performed By: #### C BCDIF, UA, PT, GBCHEM, GBTSH, MG, RPR ####[facility] Clinical [id number] [address], [place] [phone] Potassium molar conc 3.7 mmol/L Normal 3.5-5.1 [facility] Comment on above: Performed By: #### C BCDIF, UA, PT, GBCHEM, GBTSH, MG, RPR ####[facility] Clinical Ova90004 [place] [facility] Hospital[facility]on, [place] [phone] Protein 7.9 g/dL Normal 6.2-8.2 [facility] Comment on above: Performed By: #### C BCDIF, UA, PT, GBCHEM, GBTSH, MG, RPR ####[facility] Clinical Spg07134 [facility], [place] [phone] Sodium 137 mmol/L Normal 137-145 [facility] Comment on above: Performed By: #### C BCDIF, UA, PT, GBCHEM, GBTSH, MG, RPR ####[facility] Ygi49148 [address], [place] [phone] Triglyceride 253 mg/dL High 35-150 [facility] Comment on above: Performed By: #### C BCDIF, UA, PT, GBCHEM, GBTSH, MG, RPR ####[facility] Jer97209 [facility], [place] [phone] Urate 7.0 mg/dL Normal 3.5-8.5 [facility] Comment on above: Performed By: #### C BCDIF, UA, PT, GBCHEM, GBTSH, MG, RPR ####[facility] Usm45473 [facility], [place] [phone] Urea nitrogen 12 mg/dL Normal 9-20 [facility] Comment on above: Performed By: #### C BCDIF, UA, PT, GBCHEM, GBTSH, MG, RPR ####[facility] Elz80667 [address] RdW[facility] Hospitalrdon, [place] [phone] [facility] TSHon 07-02-2017 Thyroid stimulating hormone (TSH) 5.060 uU/mL High 0.465-4.680 [facility] Comment on above: Performed By: #### C BCDIF, UA, PT, GBCHEM, GBTSH, MG, RPR ####[facility] Dlk28584 [address] RdW[facility] Hospitalrdon, [place] [phone] Magnesiumon 07-02-2017 Magnesium 1.8 mg/dL Normal 1.3-2.3 [facility] Comment on above: Performed By: #### C BCDIF, UA, PT, GBCHEM, GBTSH, MG, RPR ####[facility] Clinical Vkn56829 [place], [place] [phone] Protimeon 07-02-2017 INR Coag RelTime (Bld) 1.0 {INR} Normal 0.6-1.1 [facility] Comment on above: Result Comment: The PT/INR can be used to monitor the therapeutic effect of oral anticoagulants, such as warfarin. The recommended therapeutic range is an INR of 2.0 to 3.0 for most applications, including treatment and prevention of venous thrombosis,treatment of pulmonary embolism, prevention of strokes/TIA in patients with atrial fibrillation, prevention and treatment of thrombosis in patients with a lupus anticoagulant and prevention of systemic embolization in patients with heart valve disorders.There are certain conditions where clinicians may decide to use a lower or higher therapeutic range eg. 1.5 to 1.9 for secondary prevention of idiopathic venous thromboembolism and an INR 2.5 to 3.5 for older generation mechanical heart valves.Laloell, et al. Chest 2004: 126:204S to 233S. Performed By: #### C BCDIF, UA, PT, GBCHEM, GBTSH, MG, RPR ####[facility] Clinical Ruu23443 [place], [place] [phone] PT Sec 12.8 sec Normal 11.8-14.1 [facility] Comment on above: Performed By: #### C BCDIF, UA, PT, GBCHEM, GBTSH, MG, RPR ####[facility] Clinical Wex00193 [place], [place] [phone] Urinalysison 07-02-2017 Bilirubin (total) Negative Normal Negative [facility] Comment on above: Performed By: #### C BCDIF, UA, PT, GBCHEM, GBTSH, MG, RPR ####[facility] [id number] [place], [place] [phone] Comments MICROSCOPIC ANALYSIS NOT DONE ON URINES WITH NEGATIVE BIOCHEMICAL TESTS Normal [facility] Comment on above: Performed By: #### C BCDIF, UA, PT, GBCHEM, GBTSH, MG, RPR ####[facility] Clinical Ztx07987 [facility], [place] [phone] Glucose mass conc Negative Normal Negative [facility] Comment on above: Performed By: #### C BCDIF, UA, PT, GBCHEM, GBTSH, MG, RPR ####[facility] Clinical Dsc85114 [facility], [place] [phone] Hemoglobin mass conc (Bld) Negative Normal Negative [facility] Comment on above: Performed By: #### C BCDIF, UA, PT, GBCHEM, GBTSH, MG, RPR ####[facility] Clinical Inl50301 [facility], [phone] Ketone Negative Normal Negative [facility] Comment on above: Performed By: #### C BCDIF, UA, PT, GBCHEM, GBTSH, MG, RPR ####[facility] Clinical Ord71953 [facility], [phone] Leukest Negative Normal Negative [facility] Comment on above: Performed By: #### C BCDIF, UA, PT, GBCHEM, GBTSH, MG, RPR ####[facility] Clinical Cfq79287 [facility], [place] [phone] Protein Negative Normal Negative [facility] Comment on above: Performed By: #### C BCDIF, UA, PT, GBCHEM, GBTSH, MG, RPR ####[facility] Clinical Cgb93142 [facility], [phone] Urine Spec [place] 1.012 Normal 1.005-1.030 [facility] Comment on above: Performed By: #### C BCDIF, UA, PT, GBCHEM, GBTSH, MG, RPR ####[facility] Clinical Ezy09218 [facility], [place] [phone] Urine, clarity Clear Normal Clear [facility] Comment on above: Performed By: #### C BCDIF, UA, PT, GBCHEM, GBTSH, MG, RPR ####[facility] Clinical Qsx19922 [address] [place], [place] [phone] Urine, color Yellow Normal Yellow [facility] Comment on above: Performed By: #### C BCDIF, UA, PT, GBCHEM, GBTSH, MG, RPR ####[facility] Clinical [id number] [address] [place], [place] [phone] Urine, nitrite presence Negative Normal Negative [facility] Comment on above: Performed By: #### C BCDIF, UA, PT, GBCHEM, GBTSH, MG, RPR ####[facility] Clinical Dqh74117 [place], [place] [phone] Urine, pH 6.0 [pH] Normal 5-7 [facility] Comment on above: Performed By: #### C BCDIF, UA, PT, GBCHEM, GBTSH, MG, RPR ####[facility] Pgy71883 [address], [place] [phone] Urine, urobilinogen <2.0 Normal 0.0-1.0 [facility] Comment on above: Performed By: #### C BCDIF, UA, PT, GBCHEM, GBTSH, MG, RPR ####[facility] Clinical Hic79317 [facility], [place] [phone] Gram stain for investigation of transfusion reaction Microscopic observation Gram stain Nom (Unsp spec) [facility] Work Phone: Vital Signs Date Time Vital Sign Value Performing Clinician Facility 11-02-2024 15:40-0500 Body height 176.5 cm Colton Rosario MD Work Phone: [facility] 11-02-2024 15:40-0500 Body mass index (BMI) [Ratio] 37.7 kg/m2 Colton Rosario MD Work Phone: [facility] 11-02-2024 15:40-0500 Body weight 117.48 kg Colton Rosario MD Work Phone: [facility] 11-02-2024 15:40-0500 Diastolic blood pressure 64 mm[Hg] Colton Rosario MD Work Phone: [facility] 11-02-2024 15:40-0500 Heart rate 90 /min Colton Rosario MD Work Phone: [facility] 11-02-2024 15:40-0500 SaO2% (BldA) [Mass fraction] 96 % Colton Rosario MD Work Phone: [facility] 11-02-2024 15:40-0500 Systolic blood pressure 90 mm[Hg] Colton Zelaya Work Phone: [facility] 09-20-2024 15:40-0500 Body mass index (BMI) [Ratio] 39.01 kg/m2 Colton Rosario MD Work Phone: [facility] 09-20-2024 15:40-0500 Body weight 121.56 kg Colton Rosario MD Work Phone: [facility] 09-20-2024 15:40-0500 Diastolic blood pressure 88 mm[Hg] Colton Rosario MD Work Phone: [facility] 09-20-2024 15:40-0500 Heart rate 92 /min Colton Rosario MD Work Phone: [facility] 09-20-2024 15:40-0500 Respiratory rate 18 /min Colton Rosario MD Work Phone: [facility] 09-20-2024 15:40-0500 Systolic blood pressure 140 mm[Hg] Colton Zelaya Work Phone: [facility] 07-17-2024 08:56-0500 Body mass index (BMI) [Ratio] 39.44 kg/m2 Tarik Zheng APRN.SONOGRAPHY TECHNICIAN Work Phone: [facility] 07-17-2024 08:56-0500 Body temperature 99.1 [degF] Tarik Zheng APRN.SONOGRAPHY TECHNICIAN Work Phone: [facility] 07-17-2024 08:56-0500 Body weight 122.9 kg Tarik Zheng APRN.SONOGRAPHY TECHNICIAN Work Phone: [facility] 07-17-2024 08:56-0500 Diastolic blood pressure 102 mm[Hg] Tarik Zheng APRN.SONOGRAPHY TECHNICIAN Work Phone: [facility] 07-17-2024 08:56-0500 Heart rate 88 /min Tarik Zheng APRN.SONOGRAPHY TECHNICIAN Work Phone: [facility] 07-17-2024 08:56-0500 Respiratory rate 18 /min Tarik Zheng APRN.SONOGRAPHY TECHNICIAN Work Phone: [facility] 07-17-2024 08:56-0500 SaO2% (BldA) [Mass fraction] 95 % Tarik Zheng APRN.SONOGRAPHY TECHNICIAN Work Phone: [facility] 07-17-2024 08:56-0500 Systolic blood pressure 168 mm[Hg] Tarik Zheng APRN.SONOGRAPHY TECHNICIAN Work Phone: [facility] 04-20-2024 13:29-0400 Body mass index (BMI) [Ratio] 43.08 kg/m2 Ashley Pugh APRN.SONOGRAPHY TECHNICIAN Work Phone: [facility] 04-20-2024 13:29-0400 Body weight 134.26 kg Ashley Pugh APRN.SONOGRAPHY TECHNICIAN Work Phone: [facility] 04-20-2024 13:29-0400 Diastolic blood pressure 82 mm[Hg] Ashley Pugh APRN.SONOGRAPHY TECHNICIAN Work Phone: [facility] 04-20-2024 13:29-0400 Heart rate 102 /min Ashley Pugh APRN.SONOGRAPHY TECHNICIAN Work Phone: [facility] 04-20-2024 13:29-0400 Respiratory rate 16 /min Ashley Pugh APRN.SONOGRAPHY TECHNICIAN Work Phone: [facility] 04-20-2024 13:29-0400 Systolic blood pressure 135 mm[Hg] Ashley Pugh APRN.SONOGRAPHY TECHNICIAN Work Phone: [facility] 04-20-2024 10:24-0400 Body height 176.5 cm Pelon Greenfield MD Work Phone: [facility] 04-20-2024 10:24-0400 Body mass index (BMI) [Ratio] 40.76 kg/m2 Pelon Greenfield MD Work Phone: [facility] 04-20-2024 10:24-0400 Body weight 127.01 kg Pelon Greenfield MD Work Phone: [facility] 03-03-2024 14:12-0400 SaO2% (BldA) [Mass fraction] 94 % COLTON ROSARIO [facility] Comment on above: Order Comment: Specimen Type: ARTERIAL B LOOD SPECIMEN Ordering Facility: [facility] Address: [address] [place] [address] Performed By: #### A LLMG #### [facility] CLIA [id number] [address] [place] [address] STATES OF [facility] 03-03-2024 12:40-0400 SaO2% (BldA) [Mass fraction] 99 % COLTON ROSARIO [facility] Comment on above: Order Comment: Specimen Type: ARTERIAL B LOOD SPECIMEN Ordering Facility: [facility] Address: [address] [place] [address] Performed By: #### A LLMG #### [facility] CLIA [id number] [address] [place] [address] STATES OF [place] 03-03-2024 11:43-0400 SaO2% (BldA) [Mass fraction] 94 % COLTON ROSARIO [facility] Comment on above: Order Comment: Specimen Type: SWAB Ordering Facility: [facility] Address: [address] [place] [address] Performed By: #### S APCR #### [facility] CLIA [id number] [address] [place] [address] STATES OF [place] 03-03-2024 10:03-0400 SaO2% (BldA) [Mass fraction] 99 % COLTON ROSARIO [facility] Comment on above: Order Comment: Specimen Type: ARTERIAL B LOOD SPECIMENOrdering Facility: [facility] Address: [address] [place] [address] Performed By: #### A LLBG ####[facility] [id number] [address] OF [facility] 03-03-2024 09:20-0400 SaO2% (BldA) [Mass fraction] 98 % COLTON ROSARIO [facility] Comment on above: Order Comment: Specimen Type: ARTERIAL B LOOD SPECIMEN Ordering Facility: [facility] Address: [address] [place] [address] Performed By: #### A LLMG #### [facility] CLIA [id number] [address] [place] [address] OF [facility] 02-21-2024 10:00-0400 Body mass index (BMI) [Ratio] 40.76 kg/m2 Colton Rosario MD Work Phone: [facility] 02-21-2024 10:00-0400 Body weight 127.01 kg Colton Rosario MD Work Phone: [facility] 02-21-2024 10:00-0400 Diastolic blood pressure 70 mm[Hg] Colton Rosario MD Work Phone: [facility] 02-21-2024 10:00-0400 Heart rate 82 /min Colton Rosario MD Work Phone: [facility] 02-21-2024 10:00-0400 Respiratory rate 18 /min Colton Rosario MD Work Phone: [facility] 02-21-2024 10:00-0400 Systolic blood pressure 122 mm[Hg] Colton Zelaya Work Phone: [facility] 02-16-2024 12:13-0400 Body height 176.5 cm [facility] 5 Work Phone: [facility] 02-16-2024 12:13-0400 Body mass index (BMI) [Ratio] 40.63 kg/m2 [facility] 5 Work Phone: [facility] 02-16-2024 12:13-0400 Body temperature 98.01 [degF] Pacc 5 Work Phone: [facility] 02-16-2024 12:13-0400 Body weight 126.6 kg P[facility] 5 Work Phone: [facility] 02-16-2024 12:13-0400 Diastolic blood pressure 78 mm[Hg] Pacc 5 Work Phone: [facility] 02-16-2024 12:13-0400 Heart rate 97 /min Pacc 5 Work Phone: [facility] 02-16-2024 12:13-0400 Respiratory rate 20 /min Pacc 5 Work Phone: [facility] 02-16-2024 12:13-0400 SaO2% (BldA) [Mass fraction] 99 % Pacc 5 Work Phone: [facility] 02-16-2024 12:13-0400 Systolic blood pressure 145 mm[Hg] Pacc 5 Work Phone: [facility] 02-16-2024 10:55-0400 Body height 176.5 cm Pelon Greenfield MD Work Phone: [facility] 02-16-2024 10:55-0400 Body mass index (BMI) [Ratio] 40.65 kg/m2 Pelon Greenfield MD Work Phone: [facility] 02-16-2024 10:55-0400 Body weight 126.69 kg Pelon Greenfield MD Work Phone: [facility] 02-16-2024 10:55-0400 Diastolic blood pressure 85 mm[Hg] Pelon Greenfield MD Work Phone: [facility] [facility] 02-16-2024 10:55-0400 Heart rate 100 /min Pelon Greenfield MD Work Phone: [facility] 02-16-2024 10:55-0400 Respiratory rate 17 /min Pelon Greenfield MD Work Phone: [facility] 02-16-2024 10:55-0400 SaO2% (BldA) [Mass fraction] 95 % Pelon Greenfield MD Work Phone: [facility] 02-16-2024 10:55-0400 Systolic blood pressure 141 mm[Hg] Pelon Greenfield MD Work Phone: [facility] 01-19-2024 08:06-0400 Body mass index (BMI) [Ratio] 40.46 kg/m2 Colton Rosario MD Work Phone: [facility] 01-19-2024 08:06-0400 Body weight 124.29 kg Colton Rosario MD Work Phone: [facility] 01-19-2024 08:06-0400 Diastolic blood pressure 82 mm[Hg] Colton Rosario MD Work Phone: [facility] 01-19-2024 08:06-0400 Heart rate 82 /min Colton Rosario MD Work Phone: [facility] 01-19-2024 08:06-0400 Respiratory rate 16 /min Colton Rosario MD Work Phone: [facility] 01-19-2024 08:06-0400 Systolic blood pressure 122 mm[Hg] Colton Zelaya Work Phone: [facility] 12-15-2023 11:32-0400 Body height 175.3 cm Luiza Fonseca MD Work Phone: [facility] 12-15-2023 11:32-0400 Body weight 127 kg Luiza Fonseca MD Work Phone: [facility] 12-15-2023 11:32-0400 Respiratory rate 18 /min Luiza Fonseca MD Work Phone: [facility] 05-05-2023 09:25-0400 Body height 175.3 cm Luiza Fonseca MD Work Phone: [facility] 05-05-2023 09:25-0400 Body weight 115.21 kg Luiza Fonseca MD Work Phone: [facility] 05-05-2023 09:25-0400 Respiratory rate 16 /min Luiza Fonseca MD Work Phone: [facility] 04-13-2023 08:27-0400 Body weight 116.12 kg Ashley Pugh INTRAVENOUS THERAPY NURSE.SONOGRAPHY TECHNICIAN Work Phone: [facility] 04-13-2023 08:27-0400 Diastolic blood pressure 80 mm[Hg] Ashley Caitoble INTRAVENOUS THERAPY NURSE.SONOGRAPHY TECHNICIAN Work Phone: [facility] 04-13-2023 08:27-0400 Heart rate 94 /min Ashley Lexy INTRAVENOUS THERAPY NURSE.SONOGRAPHY TECHNICIAN Work Phone: [facility] 04-13-2023 08:27-0400 Respiratory rate 16 /min Ashley Caitoble INTRAVENOUS THERAPY NURSE.SONOGRAPHY TECHNICIAN Work Phone: [facility] 04-13-2023 08:27-0400 Systolic blood pressure 132 mm[Hg] Ashley Pugh INTRAVENOUS THERAPY NURSE.SONOGRAPHY TECHNICIAN Work Phone: [facility] 02-03-2023 10:30-0400 Diastolic blood pressure 92 mm[Hg] Viktoria Tavera MD Work Phone: [facility] 02-03-2023 10:30-0400 Heart rate 80 /min Viktoria Tavera MD Work Phone: [facility] 02-03-2023 10:30-0400 Respiratory rate 23 /min Viktoria Tavera MD Work Phone: [facility] 02-03-2023 10:30-0400 SaO2% (BldA) [Mass fraction] 97 % Viktoria Tavera MD Work Phone: [facility] 02-03-2023 10:30-0400 Systolic blood pressure 153 mm[Hg] Viktoria Tavera MD Work Phone: [facility] 02-03-2023 10:03-0400 Body temperature 98.6 [degF] Viktoria Tavera MD Work Phone: [facility] 02-03-2023 09:24-0400 Body height 175.3 cm Viktoria Tavera MD Work Phone: [facility] 02-03-2023 09:24-0400 Body weight 112.95 kg Viktoria Tavera MD Work Phone: [facility] 11-11-2022 08:07-0400 Body height 175.3 cm Mainor Lajas PA-C Work Phone: [facility] 11-11-2022 08:07-0400 Body temperature 98.01 [degF] Mainor Lajas PA-C Work Phone: [facility] 11-11-2022 08:07-0400 Body weight 116.94 kg Mainor Chavez PA-C Work Phone: [facility] 11-11-2022 08:07-0400 Diastolic blood pressure 78 mm[Hg] Mainor Lajas PA- C Work Phone: [facility] 11-11-2022 08:07-0400 Heart rate 111 /min Mainor Lajas PA-C Work Phone: [facility] 11-11-2022 08:07-0400 SaO2% (BldA) [Mass fraction] 99 % Mainor Lajas PA-C Work Phone: [facility] 11-11-2022 08:07-0400 Systolic blood pressure 130 mm[Hg] Mainor Lajas PA-C Work Phone: [facility] 10-08-2022 08:37-0500 Body temperature 97.8 [degF] Dr. Willie Terry Work Phone: [facility] 10-08-2022 08:37-0500 Diastolic blood pressure 96 mm[Hg] Dr. Willie Terry Work Phone: [facility] 10-08-2022 08:37-0500 Heart rate 89 /min Dr. Willie Terry Work Phone: [facility] 10-08-2022 08:37-0500 Respiratory rate 17 /min Dr. Willie Terry Work Phone: [facility] 10-08-2022 08:37-0500 SaO2% (BldA) [Mass fraction] 96 % Dr. Willie Terry Work Phone: [facility] 10-08-2022 08:37-0500 Systolic blood pressure 150 mm[Hg] Dr. Willie Terry Work Phone: [facility] 10-06-2022 15:46-0500 Body height 175.[address] Willie Terry Work Phone: [facility] 10-06-2022 15:46-0500 Body mass index (BMI) [Ratio] 38.2 kg/m2 Dr. Willie Terry Work Phone: [facility] 10-06-2022 15:46-0500 Body weight 117.[address] Willie Terry Work Phone: [facility] 10-06-2022 15:00-0500 Diastolic blood pressure 108 mm[Hg] [facility] 10-06-2022 15:00-0500 Heart rate 78 /min [facility] 10-06-2022 15:00-0500 Respiratory rate 24 /min [facility] 10-06-2022 15:00-0500 Systolic blood pressure 173 mm[Hg] [facility] 10-06-2022 11:13-0500 Body temperature 97.6 [degF] [facility] 10-06-2022 11:13-0500 SaO2% (BldA) [Mass fraction] 96 % [facility] 10-06-2022 08:08-0500 Body height 175.26 cm [facility] 10-06-2022 08:08-0500 Body mass index (BMI) [Ratio] 37.5 kg/m2 [facility] 10-06-2022 08:08-0500 Body weight 115.21 kg [facility] 10-06-2022 07:11-0500 Diastolic blood pressure 120 mm[Hg] Fifi diallo PA-C Work Phone: [facility] 10-06-2022 07:11-0500 Systolic blood pressure 178 mm[Hg] Fifi Pierre PA-C Work Phone: [facility] 10-06-2022 07:09-0500 Body height 178 cm Fifi Pierre PA-C Work Phone: [facility] 10-06-2022 07:09-0500 Body weight 116.57 kg Fifi Pierre PA-C Work Phone: [facility] 10-06-2022 07:09-0500 Heart rate 102 /min Fifi Pierre PA-C Work Phone: [facility] 10-06-2022 07:09-0500 Respiratory rate 20 /min Fifi Pierre PA-C Work Phone: [facility] 10-06-2022 07:09-0500 SaO2% (BldA) [Mass fraction] 97 % Fifi Pierre PA-C Work Phone: [facility] 08-03-2022 13:47-0500 Body temperature 101.61 [degF] Colton Pendlebury INTRAVENOUS THERAPY NURSE.SONOGRAPHY TECHNICIAN Work Phone: [facility] 08-03-2022 13:47-0500 Body weight 113.85 kg Colton Pendlebury INTRAVENOUS THERAPY NURSE.SONOGRAPHY TECHNICIAN Work Phone: [facility] 08-03-2022 13:47-0500 Diastolic blood pressure 94 mm[Hg] Colton Pendlebury INTRAVENOUS THERAPY NURSE.SONOGRAPHY TECHNICIAN Work Phone: [facility] 08-03-2022 13:47-0500 Heart rate 110 /min Colton Pendlebury INTRAVENOUS THERAPY NURSE.SONOGRAPHY TECHNICIAN Work Phone: [facility] 08-03-2022 13:47-0500 Respiratory rate 18 /min Colton Pendlebury INTRAVENOUS THERAPY NURSE.SONOGRAPHY TECHNICIAN Work Phone: [facility] 08-03-2022 13:47-0500 SaO2% (BldA) [Mass fraction] 96 % Colton Pendlebury INTRAVENOUS THERAPY NURSE.SONOGRAPHY TECHNICIAN Work Phone: [facility] 08-03-2022 13:47-0500 Systolic blood pressure 164 mm[Hg] Colton Pendlebury INTRAVENOUS THERAPY NURSE.SONOGRAPHY TECHNICIAN Work Phone: [facility] 03-03-2022 10:17-0400 Body temperature 98.7 [degF] PRESALES CONSULTANT-C Kota Barba PRESALES CONSULTANT Work Phone: [facility] Work Phone: 03-03-2022 10:17-0400 Diastolic blood pressure 92 mm[Hg] PRESALES CONSULTANT-C Kota castellanos PRESALES CONSULTANT Work Phone: [facility] Work Phone: 03-03-2022 10:17-0400 Heart rate 86 /min PRESALES CONSULTANT-C Kota Barba PRESALES CONSULTANT Work Phone: [facility] Work Phone: 03-03-2022 10:17-0400 Respiratory rate 18 /min PRESALES CONSULTANT-C Kota Barba PRESALES CONSULTANT Work Phone: [facility] Work Phone: 03-03-2022 10:17-0400 SaO2% (BldA) [Mass fraction] 99 % PRESALES CONSULTANT-C Kota Barba PRESALES CONSULTANT Work Phone: [facility] Work Phone: 03-03-2022 10:17-0400 Systolic blood pressure 141 mm[Hg] PRESALES CONSULTANT-C Kota Barba PRESALES CONSULTANT Work Phone: [facility] Work Phone: 03-01-2022 18:25-0400 Inhaled oxygen flow rate 2 L/min PRESALES CONSULTANT-C Kota castellanos PRESALES CONSULTANT Work Phone: [facility] Work Phone: 03-01-2022 13:59-0400 Body height 175.26 cm PRESALES CONSULTANT-C Kota Barba PRESALES CONSULTANT Work Phone: [facility] Work Phone: 03-01-2022 13:59-0400 Body mass index (BMI) [Ratio] 34.8 kg/m2 PRESALES CONSULTANT-C Kota Barba PRESALES CONSULTANT Work Phone: [facility] Work Phone: 03-01-2022 13:59-0400 Body weight 106.9 kg PRESALES CONSULTANT-C Kota Barba PRESALES CONSULTANT Work Phone: [facility] Work Phone: 03-01-2022 12:57-0400 Body temperature 98.2 [degF] [facility] Work Phone: 03-01-2022 12:57-0400 Diastolic blood pressure 96 mm[Hg] [facility] Work Phone: 03-01-2022 12:57-0400 Heart rate 108 /min [facility] Work Phone: 03-01-2022 12:57-0400 Inhaled oxygen flow rate 2 L/min [facility] Work Phone: 03-01-2022 12:57-0400 Respiratory rate 35 /min [facility] Work Phone: 03-01-2022 12:57-0400 SaO2% (BldA) [Mass fraction] 97 % [facility] Work Phone: 03-01-2022 12:57-0400 Systolic blood pressure 138 mm[Hg] [facility] Work Phone: 03-01-2022 09:55-0400 Body height 177.8 cm [facility] Work Phone: 03-01-2022 09:55-0400 Body mass index (BMI) [Ratio] 33.5 kg/m2 [facility] Work Phone: 03-01-2022 09:55-0400 Body weight 106.14 kg [facility] Work Phone: 02-26-2022 10:01-0400 Heart rate 101 /min Melissa Carrasquillo PA-C Work Phone: [facility] 02-26-2022 09:49-0400 Body temperature 97.81 [degF] Melissa Khalily PA-C Work Phone: [facility] 02-26-2022 09:49-0400 Body weight 109.32 kg Melissa Simrany PA-C Work Phone: [facility] 02-26-2022 09:49-0400 Diastolic blood pressure 94 mm[Hg] Melissayocasta Khalilsandy PA-C Work Phone: [facility] 02-26-2022 09:49-0400 Respiratory rate 18 /min Melissa Carrasquillo PA-C Work Phone: [facility] 02-26-2022 09:49-0400 SaO2% (BldA) [Mass fraction] 97 % Melissayocasta Khalilsandy PA-C Work Phone: [facility] 02-26-2022 09:49-0400 Systolic blood pressure 142 mm[Hg] Melissa Carrasquillo PA-C Work Phone: [facility] Encounters Encounter Date Encounter Type Care Provider Facility Start: 02-08-2025 End: 02-08-2025 ambulatory Colton Rosario MD Work Phone: [facility] Comment on above: Back Pain Start: 12-21-2024 ambulatory COLTON ROSARIO Facili ty:[facility] Start: 11-02-2024 End: 11-02-2024 Patient encounter procedure Colton Rosario MD Work Phone: [facility] [place] Comment on above: Hypertension, essent ial (Primary Dx); Mixed hyperlipidemia; Elevated hemoglobin A1c; Situational anxiety; Morbid obesity (HCC); Metabolic dysfunction-associated steatohepatitis (MASH); Smoker; Need for vaccination; Obesity, Class II, BMI 35-39.9; Screening for prostate cancer Start: 11-02-2024 End: 11-02-2024 ambulatory COLTON ROSARIO Facility:[facility] Start: 09-20-2024 End: 09-20-2024 ambulatory COLTON ROSARIO Facility:[facility] Start: 09-20-2024 End: 09-20-2024 Patient encounter procedure Colton Rosario MD Work Phone: [facility] [place] Comment on above: Diastasis recti (Jennifer ynes Dx); Acute pain of left shoulder; Left shoulder tendonitis; Elevated hemoglobin A1c; Hypertension, essential; Mixed hyperlipidemia Start: 09-17-2024 End: 09-22-2024 Refill Ashley Pugh APRN.SONOGRAPHY TECHNICIAN Work Phone: [facility] Comment on above: Refill Request Start: 07-17-2024 End: 07-17-2024 Subsequent hospital visit by physician Liu [facility] [place] Work Phone: Radiology Comment on above: Acute cough [R05.1] Start: 07-17-2024 End: 07-17-2024 ambulatory [facility] Facility:[facility] Start: 07-17-2024 End: 07-17-2024 Patient encounter procedure Tarik Zheng APRN.SONOGRAPHY TECHNICIAN Work Phone: [facility] Comment on above: Acute cough (Primary Dx); Sore throat; Strep throat Start: 06-20-2024 End: 06-26-2024 Telephone encounter Colton Rosario MD Work Phone: [facility] Comment on above: Refill Request Start: 04-25-2024 End: 04-25-2024 Telephone encounter Ashley Pugh APRN.SONOGRAPHY TECHNICIAN Work Phone: [facility] Comment on above: Results Start: 04-20-2024 End: 04-20-2024 Subsequent hospital visit by physician Liu [facility] [place] Work Phone: Radiology Comment on above: SOB (shortness of br eath) [R06.02] Start: 04-20-2024 End: 04-20-2024 Telephone encounter Ashley Pugh APRN.SONOGRAPHY TECHNICIAN Work Phone: [facility] Comment on above: Results Start: 04-20-2024 End: 04-20-2024 Patient encounter procedure Ashley Pugh APRN.SONOGRAPHY TECHNICIAN Work Phone: [facility] Comment on above: SOB (shortness of br eath) (Primary Dx); Bilateral leg edema; Hypertension, essential Start: 04-20-2024 End: 04-20-2024 ambulatory COLTON Yocasta ROSARIO Facility:[facility] Start: 04-20-2024 End: 04-20-2024 ambulatory [facility] Facility:[facility] Start: 04-20-2024 End: 04-20-2024 Patient encounter procedure Pelon Greenfield MD Work Phone: [facility] Comment on above: Radiculopathy, cervi lara region (Primary Dx) Start: 03-31-2024 End: 03-31-2024 Telemedicine consultation with patient Leonel Luke Longo PA-C Work Phone: [facility] Start: 03-31-2024 End: 03-31-2024 ambulatory Leonel Luke Longo PA-C Work Phone: [facility] Comment on above: Radiculopathy, cervi lara region (Primary Dx); Cervical vertebral fusion Start: 03-21-2024 Telephone encounter Colton Rosario MD Work Phone: [facility] Comment on above: Transition Of Care Start: 03-09-2024 Telephone encounter Colton Rosario MD Work Phone: [facility] Comment on above: Transition Of Care Start: 03-03-2024 End: 03-04-2024 Evaluation and management of inpatient PELON GREENFIELD Facility:[facility] Start: 02-24-2024 End: 02-24-2024 ambulatory Nurse [facility] Work Phone: [facility] Start: 02-23-2024 Telephone encounter Colton Rosario MD Work Phone: [facility] [place] Comment on above: Results Start: 02-21-2024 End: 02-21-2024 ambulatory COLTON ROSARIO Facility:[facility] Start: 02-21-2024 End: 02-21-2024 Patient encounter procedure Colton Rosario MD Work Phone: [facility] [place] Comment on above: Well adult exam (Jennifer ynes Dx); Pre-op examination; Spinal stenosis of cervical region; Hypertension, essential; Mixed hyperlipidemia; Agoraphobia; Situational anxiety; Metabolic dysfunction-associated steatohepatitis (MASH); LVH (left ventricular hypertrophy); Morbid obesity (HCC); Screening for prostate cancer; Hypercalcemia; Elevated hemoglobin A1c; ED (erectile dysfunction) of organic origin Start: 02-21-2024 End: 02-21-2024 Patient encounter status Colton Rosario MD Work Phone: [facility] Work Phone: Start: 02-21-2024 End: 02-21-2024 Preprocedural examination done Colton Rosario MD Work Phone: [facility] Start: 02-16-2024 Telephone encounter Claus Worrellmariela carranza PA-C Work Phone: Pre Anesthesia Comment on above: Follow Up; Received Outside Medical Records (cardiology) Start: 02-16-2024 End: 02-16-2024 Admission to establishment [facility] 5 Work Phone: Pre Anesthesia Start: 02-16-2024 End: 02-16-2024 Anesthesia consultation [facility] Main 5 Work Phone: Pre Anesthesia Comment on above: Pre-op evaluation (P rimary Dx); LVH (left ventricular hypertrophy); Hypertension, essential; Former smoker; Morbid obesity (HCC); JOSELITO (obstructive sleep apnea); Abnormal echocardiogram Start: 02-16-2024 End: 02-16-2024 Preprocedural examination done [place] [id number] Work Phone: [facility] Work Phone: Start: 02-16-2024 Encounter for other preprocedural examination COLTON ROSARIO [facility] Start: 02-16-2024 End: 02-16-2024 ambulatory COLTON ROSARIO Facility:[facility] Start: 02-16-2024 End: 02-16-2024 ambulatory COLTON ROSARIO Facility:[facility] Start: 02-16-2024 End: 02-16-2024 Patient encounter procedure Pelon Greenfield MD Work Phone: [facility] Comment on above: Pseudoarthrosis of c ervical spine, subsequent encounter (Primary Dx); Radiculopathy, cervical region Start: 02-15-2024 End: 02-15-2024 ambulatory COLTON ROSARIO Facility:[facility] Start: 02-09-2024 ambulatory Pelon Greenfield MD Work Phone: [facility] Start: 02-09-2024 Patient encounter status Nima Greenfield MD Work Phone: [facility] Start: 02-08-2024 Telephone encounter Pelon bird MD Work Phone: [facility] Comment on above: Schedule Surgery Start: 01-26-2024 Admission to [facility] Pelon Greenfield MD Work Phone: [facility] Comment on above: Upcoming surgery and quitting smoking Start: 01-26-2024 ambulatory Pelon Greenfield MD Work Phone: [facility] Start: 01-19-2024 End: 01-19-2024 ambulatory COLTON ROSARIO Facility:[facility] Start: 01-19-2024 End: 01-19-2024 Patient encounter procedure Colton Rosario MD Work Phone: [facility] [place] Comment on above: Smoker (Primary Dx); Encounter for smoking cessation counseling Start: 01-18-2024 ambulatory Colton han MD Work Phone: [facility] [place] Comment on above: Quit smoking Start: 01-18-2024 Telephone encounter Jaylan Zheng MA [facility] [place] Comment on above: Appointment Start: 01-14-2024 End: 01-14-2024 ambulatory Pelon Greenfield MD Work Phone: [facility] Comment on above: Pseudoarthrosis of c ervical spine, subsequent encounter (Primary Dx); Radiculopathy, cervical region Smoking Cessation Start: 01-14-2024 End: 01-14-2024 Telemedicine consultation with patient Pelon Greenfield MD Work Phone: [facility] Start: 12-16-2023 ambulatory Pelon Greenfield MD Work Phone: [facility] Start: 12-16-2023 Patient encounter procedure Pelon Greenfield MD Work Phone: [facility] Comment on above: upcoming appointment s Start: 12-16-2023 Telephone encounter Luiza Fonseca MD Work Phone: [facility] Comment on above: letter Start: 12-15-2023 End: 12-15-2023 Patient encounter procedure Luiza Fonseca MD Work Phone: [facility] Comment on above: Spinal stenosis in c ervical region (Primary Dx); Cervical disc disorder with radiculopathy; H/O cervical spine surgery; Lumbosacral stenosis; Lumbosacral spondylosis with radiculopathy; H/O lumbosacral spine surgery Start: 12-08-2023 Refill Colton han MD Work Phone: [facility] Comment on above: Refill Request Start: 12-03-2023 ambulatory Pelon Greenfield MD Work Phone: [facility] Start: 12-03-2023 Follow-up encounter Pelon bird MD Work Phone: [facility] Comment on above: Scheduling follow up post injections Start: 12-02-2023 Orders Only Rachel Jimenez no INTRAVENOUS THERAPY NURSE.SONOGRAPHY TECHNICIAN Work Phone: Pain Management Comment on above: Spinal stenosis of c ervical region (Primary Dx) Start: 11-29-2023 ambulatory Pelon Greenfield MD Work Phone: [facility] Start: 11-29-2023 Follow-up encounter Pelon bird MD Work Phone: [facility] Comment on above: MRi results and foll ow up Start: 11-29-2023 Patient encounter procedure Luiza Fonseca MD Work Phone: [facility] Comment on above: upcoming appointment s Start: 11-29-2023 Telephone encounter Pelon bird MD Work Phone: Neurology Comment on above: Results Start: 11-23-2023 Telephone encounter Luiza Fonseca MD Work Phone: [facility] Comment on above: Follow Up Start: 11-12-2023 End: 11-12-2023 Subsequent hospital visit by physician [employer] [facility] (I-Stat/1.5t) Work Phone: Radiology Comment on above: Spinal stenosis of l umbar region with neurogenic claudication [M48.062] Start: 11-12-2023 ambulatory Luiza sylvester MD Work Phone: [facility] Comment on above: On the matter of my disability to work MRi Ongiong matter of my disability to currently work Start: 10-26-2023 ambulatory Pelon Greenfield MD Work Phone: [facility] Comment on above: Ongoing dispute with my disability insurance company Start: 10-13-2023 Telephone encounter ePlon bird MD Work Phone: [facility] Comment on above: Imaging Start: 10-12-2023 ambulatory Pelon Greenfield MD Work Phone: [facility] Comment on above: Upcoming Virtual vis it Disability Question Start: 10-07-2023 End: 10-07-2023 Subsequent hospital visit by physician [facility] (I-Stat) Work Phone: Cat Scan Comment on above: Spinal stenosis of c ervical region [M48.02] DDD (degenerative di sc disease), lumbar [M51.36] Start: 07-19-2023 Telephone encounter Luiza Fonseca MD Work Phone: [facility] Comment on above: Results Start: 07-15-2023 ambulatory Rachel MCKEON Facility:[facility] Start: 06-30-2023 Telephone encounter Luiza Fonseca MD Work Phone: Neurology Comment on above: Patient Question Start: 06-28-2023 Telephone encounter Colton Rosario MD Work Phone: [facility] [place] Comment on above: FMLA Forms-pcp offic e Start: 06-18-2023 End: 06-18-2023 [facility] Luiza Fonseca MD Work Phone: [facility] Comment on above: Cervical disc disord er with radiculopathy (Primary Dx); Spinal stenosis of cervical region; H/O cervical spine surgery Forms Start: 06-17-2023 End: 06-17-2023 Admission to same day surgery center Ayo Aguilar PT Work Phone: [facility] Comment on above: DDD (degenerative di sc disease), lumbar (Primary Dx); Spinal stenosis of cervical region; Hand numbness; Mass of soft tissue of forearm; H/O cervical spine surgery Start: 06-17-2023 End: 06-17-2023 ambulatory Ayo Aguilar PT Work Phone: [facility] Start: 06-15-2023 Chart abstracting Colton rene MD Work Phone: [facility] Comment on above: Outside Cardiology Start: 06-15-2023 End: 06-15-2023 ambulatory Rachel MCKEON Facility:[facility] Start: 06-14-2023 End: 06-14-2023 Admission to same day surgery center Ayo Aguilar PT Work Phone: [facility] Physical Therapy Comment on above: Spinal stenosis of c ervical region (Primary Dx); Mass of soft tissue of forearm; Hand numbness; H/O cervical spine surgery; DDD (degenerative disc disease), lumbar Start: 06-14-2023 End: 06-14-2023 ambulatory Ayo Aguilar PT Work Phone: [facility] Start: 06-08-2023 End: 06-08-2023 Admission to same day surgery center Ayo Aguilar PT Work Phone: [facility] Physical Therapy Comment on above: Spinal stenosis of c ervical region (Primary Dx); Mass of soft tissue of forearm; Hand numbness; H/O cervical spine surgery; DDD (degenerative disc disease), lumbar Start: 06-08-2023 End: 06-08-2023 ambulatory Ayo [facility]ilar PT [facility] Phone: [facility] Start: 05-28-2023 End: 05-28-2023 ambulatory Emg 850) Neurology Comment on above: EMG Start: 05-28-2023 End: 05-28-2023 Patient encounter procedure Emg 2 Neur Eugenia (Max Weight: 850) EUGENIA Start: 05-24-2023 End: 05-24-2023 Admission to same day surgery center Ayo Aguilar PT Work Phone: [facility] Physical Therapy Comment on above: DDD (degenerative di sc disease), lumbar (Primary Dx); Spinal stenosis of cervical region; Mass of soft tissue of forearm; Hand numbness; H/O cervical spine surgery Start: 05-24-2023 End: 05-24-2023 ambulatory Ayo Aguilar PT Work Phone: [facility] Start: 05-19-2023 Telephone encounter Luiza Fonseca MD Work Phone: [facility] Comment on above: insurance denied MRI Start: 05-17-2023 End: 05-17-2023 Admission to same day surgery center Ayo Aguilar PT Work Phone: [facility] Physical Therapy Comment on above: DDD (degenerative di sc disease), lumbar (Primary Dx); Spinal stenosis of cervical region; Mass of soft tissue of forearm; Hand numbness; H/O cervical spine surgery Start: 05-17-2023 End: 05-17-2023 ambulatory Ayo Aguilar PT Work Phone: [facility] Start: 05-06-2023 Telephone encounter Jaylan Zheng MA [facility] Comment on above: FMLA Paperwork (Shor t Term Disability forms /) Start: 05-05-2023 Telephone encounter Baltazar Zaidi MD Work Phone: Neurology Start: 05-05-2023 End: 05-05-2023 Patient encounter procedure Luiza Fonseca MD Work Phone: Spine Medicine Comment on above: Spinal stenosis of c ervical region (Primary Dx); DDD (degenerative disc disease), lumbar; Mass of soft tissue of forearm; Hand numbness; H/O cervical spine surgery Start: 04-13-2023 End: 04-13-2023 Patient encounter procedure Ashley Pugh APRN.SONOGRAPHY TECHNICIAN Work Phone: Family Medicine [place] Comment on above: Acute midline low ba ck pain without sciatica (Primary Dx) Start: 04-08-2023 Telephone encounter Ashley ramsey APRN.SONOGRAPHY TECHNICIAN Work Phone: [facility] Comment on above: Results Start: 04-08-2023 End: 04-08-2023 Subsequent hospital visit by physician Xr [facility] Work Phone: Radiology Comment on above: Left leg pain [M79.6 05] Start: 02-03-2023 ambulatory COLTON ROSARIO Facili ty:[facility] Start: 02-03-2023 End: 02-03-2023 Subsequent hospital visit by physician Viktoria Tavera MD Work Phone: [facility] Endoscopy Comment on above: Family history of co grey cancer [Z80.0] Start: 01-28-2023 Telephone encounter Colton Rosario MD Work Phone: [facility] Comment on above: requesting medicatio n refills Start: 12-21-2022 Chart abstracting Colton rene MD Work Phone: [facility] Comment on above: Consult Start: 12-17-2022 End: 12-17-2022 ambulatory [facility] Facility:[facility] Start: 11-11-2022 End: 11-11-2022 Patient encounter procedure Mainor Pandey PA-C Work Phone: General Surgery Comment on above: Screening for colon cancer; Family history of colon cancer Start: 10-09-2022 Telephone encounter Fifi watters PA-C Work Phone: [facility] Comment on above: Future Appointment ( /) Start: 10-08-2022 Non-patient / Non-visit Dr. Kalyani Terry Work Phone: [facility] Start: 10-07-2022 Non-patient / Non-visit Dr. Kalyani Terry Work Phone: [facility] Start: 10-07-2022 [facility] Facility:[facility] Start: 10-07-2022 Non-patient / Non-visit Dr. Kalyani Terry Work Phone: [facility] Start: 10-06-2022 Non-patient / Non-visit Dr. Kalyani Terry Work Phone: [facility] Start: 10-06-2022 ambulatory Ludy Salazar Facility :[facility] Start: 10-06-2022 End: 10-08-2022 Evaluation and management of inpatient [facility] Facility:[facility] Start: 10-06-2022 End: 10-08-2022 Evaluation and management of inpatient [facility] Start: 10-06-2022 End: 10-06-2022 Patient encounter procedure Fifi Pierre PA-C Work Phone: [facility] Comment on above: Well adult exam (Jennifer ynes Dx); Hypertension, essential; Essential hypertension with goal blood pressure less than 140/90; Polycythemia; Screening for prostate cancer; Family history of prostate cancer; Screening for colon cancer; Family history of colon cancer Start: 10-06-2022 End: 10-06-2022 Patient encounter status Fifi Pierre PA-C Work Phone: [facility] Start: 09-30-2022 Telephone encounter Kota castellanos APRN.DYLAN TORRES Work Phone: [facility] Comment on above: Orders Start: 08-03-2022 End: 08-03-2022 Patient encounter procedure Colton Diallo APRN.SONOGRAPHY TECHNICIAN Work Phone: [facility] Comment on above: Viral illness (Prima ry Dx) Start: 07-08-2022 ambulatory Kota RAMACHANDRAN RN.DYLAN TORRES Work Phone: Ambulatory Surgery Start: 03-02-2022 Non-patient / Non-visit PRESALES CONSULTANT-C Dharmesh Barba PRESALES CONSULTANT Work Phone: [facility] Start: 03-01-2022 Non-patient / Non-visit PRESALES CONSULTANT-C Dharmesh Barba PRESALES CONSULTANT Work Phone: [facility] Start: 03-01-2022 End: 03-03-2022 Evaluation and management of inpatient [facility] Start: 03-01-2022 End: 03-01-2022 Patient encounter procedure Tarik Zheng APRN.SONOGRAPHY TECHNICIAN Work Phone: [facility] Comment on above: Slurred speech (Prim genesis Dx) Start: 02-26-2022 End: 02-26-2022 Subsequent hospital visit by physician Xr [facility] [place] Work Phone: Radiology Comment on above: Acute left-sided low back pain with left-sided sciatica [M54.42] Start: 02-26-2022 End: 02-26-2022 Patient encounter procedure Melissa Carrasquillo PA-C Work Phone: [facility] Comment on above: Acute left-sided low back pain with left-sided sciatica (Primary Dx) Start: 12-16-2020 End: 12-16-2020 Subsequent hospital visit by physician Xr [facility] [place] Work Phone: Radiology Comment on above: Cervical radiculopat hy [M54.12] Start: 07-02-2017 [facility] Start: 07-10-2016 Patient encounter status Melissa Carrasquillo PA-C Work Phone: [facility] Work Phone: Procedures Date Procedure Procedure Detail Performing Clinician Start: 07-17-2024 Radiologic exam ches t 2 views Tarik Zheng APRN.SONOGRAPHY TECHNICIAN Work Phone: Start: 07-17-2024 STREP A MOLECULAR (POC) Tarik Zheng APRN.SONOGRAPHY TECHNICIAN Work Phone: Start: 04-20-2024 Radiologic exam ches t 2 views Ashley Pugh APRN.SONOGRAPHY TECHNICIAN Work Phone: Start: 03-03-2024 Antibody screen COLTON ROSARIO Comment on above: Order Comment: Speci men Type: BLOOD SPECIMENOrdering Facility: [facility] Address: [address] [place] [address] Performed By: #### T SCR ####[facility] BLOOD BANKCLIA [id number] [place] [address] [place] Start: 02-21-2024 Lipid 1996 panel - S edna or Plasma Claus Hinton PA-C Work Phone: Start: 02-16-2024 Antibody screen COLTON ROSARIO Comment on above: Order Comment: Speci men Type: BLOOD SPECIMENOrdering Facility: [facility] Address: [address] [place] [address] Performed By: #### T SCR ####[facility] BLOOD BANKCLIA [id number] [facility] [id number] [place] Start: 11-12-2023 Mri spinal canal lum bar w/o contrast material Pelon Greenfield MD Work Phone: Start: 10-07-2023 Ct cervical spine w/ o contrast material Pelon Greenfield MD Work Phone: Start: 10-07-2023 Mri spinal canal cer vical w/o contrast matrl Luiza Fonseca MD Work Phone: Start: 05-28-2023 Nerve conduction nena dies 5-6 studies Luiza Fonseca MD Work Phone: Start: 04-08-2023 Radex spine lumbosac ral minimum 4 views Ashley Pugh INTRAVENOUS THERAPY NURSE.SONOGRAPHY TECHNICIAN Work Phone: Start: 02-03-2023 Colonoscopy flx dx w /collj spec when pfrmd Mainor Pandey PA-C Work Phone: Start: 02-03-2023 Colonoscopy Viktoria Tavera MD Work Phone: Start: 10-06-2022 Ecg routine ecg w/le ast 12 lds i&r only [facility] Provider Start: 10-05-2022 Lipid 1996 panel - S edna or Plasma Jaylan Zheng MA Start: 03-01-2022 CT angiography of ch est with contrast Start: 03-01-2022 CT of head without contrast Start: 03-01-2022 Plain chest X-ray Start: 02-26-2022 Radex spine lumbosac ral 2/3 views Melissa Carrasquillo PA-C Work Phone: Start: 06-05-2021 Antibody screen Comment on above: Order Comment: Speci men Type: BLOOD SPECIMEN Performed By: #### T [id number] #### [facility] BLOOD BANK CLIA [id number] [address] Start: 04-29-2021 Antibody screen Comment on above: Order Comment: Speci men Type: BLOOD SPECIMEN Performed By: #### T SCR30 #### [facility] BLOOD BANK CLIA [id number] [address] Start: 01-07-2021 Adult depression scr eening assessment Melissa Carrasquillo PA-C Work Phone: Start: 12-16-2020 Radex spine cervical 4 or 5 views Kota Barba INTRAVENOUS THERAPY NURSE.SONOGRAPHY TECHNICIAN, DNP Work Phone: Start: 09-28-2014 Colonoscopy Melissa Carrasquillo PA-C Work Phone: Clostridium difficil e detection PRESALES CONSULTANT-C Kota Barba PRESALES CONSULTANT Work Phone: Investigation of tra nsfusion reaction PRESALES CONSULTANT-C Kota Barba PRESALES CONSULTANT Work Phone: Viral antigen assay Plan of Treatment Date Care Activity Detail Author Start: 11-02-2034 Urine microalbumin profile DTaP,Tdap,Td Vaccine (3 - Td or Tdap) [facility] Start: 02-20-2029 Lipid panel Lipid Screening [facility] Start: 02-20-2029 Prostate specific an tigen measurement Prostate Cancer Screening Discussion [facility] Start: 02-04-2028 Colonoscopy COLONOSCOPY [facility] Start: 02-04-2028 COLORECTAL CANCER SCREENING COLORECTAL CANCER SCREENING [facility] Start: 02-04-2028 Screening for malign ant neoplasm of colon [facility] Start: 10-05-2027 Lipid 1996 panel - S edna or Plasma Lipid Screening [facility] Start: 10-05-2027 Lipid panel Lipid Screening [facility] Start: 10-05-2027 LIPID SCREEN LIPID SCREEN [facility] Start: 04-20-2027 Diabetes Screening Diabetes Screenin g [facility] Start: 03-04-2027 Diabetes Screening Diabetes Screenin g [facility] Start: 02-15-2027 Diabetes Screening Diabetes Screenin g [facility] Start: 04-08-2026 DIABETES SCREEN DIABETES SCREEN [facility] Start: 04-08-2026 Diabetes Screening Diabetes Screenin g [facility] Start: 12-21-2025 Annual PCP Team Mechanics Supervisor dionne Disease Visit Annual PCP Team Chronic Disease Visit [facility] Start: 11-02-2025 Annual PCP Team Mechanics Supervisor dionne Disease Visit Annual PCP Team Chronic Disease Visit [facility] Start: 11-02-2025 BP Controlled (<130/80) BP Controlle d (<130/80) [facility] Start: 10-05-2025 DIABETES SCREEN DIABETES SCREEN [facility] Start: 09-20-2025 Annual PCP Team Mechanics Supervisor dionne Disease Visit Annual PCP Team Chronic Disease Visit [facility] Start: 05-11-2025 End: 05-11-2025 Patient encounter procedure 05/11/2025 11:00 AM EDT Office Visit Family Medicine [facility] [address] [place], [place] [id number] Colton Rosario MD [address] [place] [id number] Physical Family Medicine [place] Comment on above: Physical Start: 04-20-2025 Annual PCP Team Mechanics Supervisor dionne Disease Visit Annual PCP Team Chronic Disease Visit [facility] Start: 04-20-2025 End: 07-20-2025 CBC W Auto Differential panel - Blood COMPLETE BLOOD COUNT AND DIFFERENTIAL Lab Routine Metabolic dysfunction-associated steatohepatitis (MASH) Expected: 04/20/2025, Expires: 07/20/2025 [facility] Comment on above: Expected: 04/20/2025 , Expires: 07/20/2025 Start: 04-20-2025 End: 07-20-2025 Comprehensive metabolic 2000 panel - Serum or Plasma COMPREHENSIVE METABOLIC PANEL Lab Routine Hypertension, essential Mixed hyperlipidemia Expected: 04/20/2025, Expires: 07/20/2025 [facility] Work Phone: Comment on above: Expected: 04/20/2025 , Expires: 07/20/2025 Start: 04-20-2025 Creatinine measurement Serum Creatin ine [facility] Start: 04-20-2025 End: 07-20-2025 Hemoglobin A1c in Blood HEMOGLOBIN A1C Lab Routine Elevated hemoglobin A1c Expected: 04/20/2025, Expires: 07/20/2025 [facility] Comment on above: Expected: 04/20/2025 , Expires: 07/20/2025 Start: 04-20-2025 End: 07-20-2025 LIPID PANEL, NONFASTING LIPID PANEL, NONFASTING Lab Routine Hypertension, essential Mixed hyperlipidemia Expected: 04/20/2025, Expires: 07/20/2025 [facility] Comment on above: Expected: 04/20/2025 , Expires: 07/20/2025 Start: 04-20-2025 End: 07-20-2025 Prostate specific Ag [Mass/volume] in Serum or Plasma PROSTATE-SPECIFIC ANTIGEN DIAGNOSTIC Lab Routine Screening for prostate cancer Expected: 04/20/2025, Expires: 07/20/2025 [facility] Comment on above: Expected: 04/20/2025 , Expires: 07/20/2025 Start: 04-20-2025 End: 07-20-2025 Urinalysis complete panel - Urine URINALYSIS, WITH MICROSCOPIC Lab Routine Hypertension, essential Mixed hyperlipidemia Expected: 04/20/2025, Expires: 07/20/2025 [facility] Comment on above: Expected: 04/20/2025 , Expires: 07/20/2025 Start: 03-12-2025 LIPID SCREEN LIPID SCREEN [facility] Start: 03-04-2025 Creatinine measurement Serum Creatin ine [facility] Start: 02-20-2025 Annual PCP Team Mechanics Supervisor dionne Disease Visit Annual PCP Team Chronic Disease Visit [facility] Start: 02-20-2025 BP Controlled (<130/80) BP Controlle d (<130/80) [facility] Start: 02-20-2025 Shingrix Vaccine (1 of 2) Li grix Vaccine (1 of 2) [facility] Comment on above: Postponed from 11/18 (Insurance Coverage) Start: 02-09-2025 End: 02-09-2025 Patient encounter procedure 02/09/2025 8:40 AM EDT Office Visit [facility] [place] [address] [place] [id number] Ashley Pugh APRN.[facility] [address] [place] [address] Lower back pain- requests pain med. See triage. [facility] [place] Comment on above: Lower back pain- req uests pain med. See triage. Start: 01-18-2025 Annual PCP Team Mechanics Supervisor dionne Disease Visit Annual PCP Team Chronic Disease Visit [facility] Start: 11-02-2024 End: 11-02-2024 Patient encounter procedure 11/02/2024 3:20 PM EST Office Visit Family [facility] [address] [place] [address] Colton Rosario MD [address] [place] [address] 6 week follow up Family [facility] Comment on above: 6 week follow up Start: 09-30-2024 End: 12-30-2024 Comprehensive metabolic 2000 panel - Serum or Plasma COMPREHENSIVE METABOLIC PANEL Lab Routine Hypertension, essential Mixed hyperlipidemia Expected: 09/30/2024, Expires: 12/30/2024 [facility] Comment on above: Expected: 09/30/2024 , Expires: 12/30/2024 Start: 09-30-2024 End: 12-30-2024 Hemoglobin A1c in Blood HEMOGLOBIN A1C Lab Routine Elevated hemoglobin A1c Expected: 09/30/2024, Expires: 12/30/2024 [facility] Comment on above: Expected: 09/30/2024 , Expires: 12/30/2024 Start: 09-30-2024 End: 12-30-2024 LIPID PANEL, NONFASTING LIPID PANEL, NONFASTING Lab Routine Hypertension, essential Mixed hyperlipidemia Expected: 09/30/2024, Expires: 12/30/2024 [facility] Comment on above: Expected: 09/30/2024 , Expires: 12/30/2024 Start: 09-21-2024 End: 09-21-2024 ambulatory 09/21/2024 3:00 PM EST OT/PT/Speech Visit [facility] Physical Therapy [address] [place] [address] Bernabe Ramirez PT Acute pain of left shoulder [M25.512] [facility] Comment on above: Acute pain of left s houlder [M25.512] Start: 09-20-2024 End: 09-20-2024 Patient encounter procedure 09/20/2024 3:40 PM EST Office Visit Family [facility] [address] [facility] [place] [address] Colton Rosario MD [address] [facility] [place] [address] Concerns from previous appointments [facility] [place] Comment on above: Concerns from previo us appointments Start: 08-29-2024 Behavioral Health Screening Behavioral Health Screening [facility] Comment on above: Postponed from 08/30 (Declined at this time) Start: 08-14-2024 End: 08-14-2024 Patient encounter procedure 08/14/2024 7:20 AM EST Office Visit [facility] [place] [address] [facility] [place] [id number] Fifi Pierre PA-C [address] [facility] [place] [id number] 6 month follow up [facility] Comment on above: 6 month follow up Start: 08-11-2024 End: 11-10-2024 Comprehensive metabolic 2000 panel - Serum or Plasma COMPREHENSIVE METABOLIC PANEL Lab Routine Hypertension, essential Mixed hyperlipidemia Metabolic dysfunction-associated steatohepatitis (MASH) Expected: 08/11/2024, Expires: 11/10/2024 [facility] Comment on above: Expected: 08/11/2024 , Expires: 11/10/2024 Start: 08-11-2024 End: 11-10-2024 Hemoglobin A1c in Blood HEMOGLOBIN A1C Lab Routine Elevated hemoglobin A1c Expected: 08/11/2024, Expires: 11/10/2024 [facility] Comment on above: Expected: 08/11/2024 , Expires: 11/10/2024 Start: 08-11-2024 End: 11-10-2024 LIPID PANEL, NONFASTING LIPID PANEL, NONFASTING Lab Routine Hypertension, essential Mixed hyperlipidemia Metabolic dysfunction-associated steatohepatitis (MASH) Expected: 08/11/2024, Expires: 11/10/2024 [facility] Comment on above: Expected: 08/11/2024 , Expires: 11/10/2024 Start: 06-28-2024 Urine microalbumin profile [facility] Start: 06-23-2024 End: 09-22-2024 Hepatic function 2000 panel - Serum or Plasma HEPATIC FUNCTION PNL Lab Routine Mixed hyperlipidemia Metabolic dysfunction-associated steatohepatitis (MASH) Expected: 06/23/2024, Expires: 09/22/2024 [facility] Work Phone: Comment on above: Expected: 06/23/2024 , Expires: 09/22/2024 Start: 06-23-2024 End: 09-22-2024 LIPID PANEL, NONFASTING LIPID PANEL, NONFASTING Lab Routine Mixed hyperlipidemia Metabolic dysfunction-associated steatohepatitis (MASH) Expected: 06/23/2024, Expires: 09/22/2024 [facility] Comment on above: Expected: 06/23/2024 , Expires: 09/22/2024 Start: 06-05-2024 DIABETES SCREEN DIABETES SCREEN [facility] Start: 04-30-2024 Influenza vaccination C [facility] Start: 04-20-2024 End: 07-20-2024 Comprehensive metabolic 2000 panel - Serum or Plasma [facility] Comment on above: Expected: 04/20/2024 , Expires: 07/20/2024 Start: 04-20-2024 End: 07-20-2024 Natriuretic peptide.B prohormone N-Terminal [Mass/volume] in Serum or Plasma [facility] Work Phone: Comment on above: Expected: 04/20/2024 , Expires: 07/20/2024 Start: 04-20-2024 End: 04-20-2024 Patient encounter procedure 04/20/2024 10:10 AM EDT Office Visit [facility] [id number] [place], [place] [phone] Pelon Greenfield MD [address] [place], [place] [phone] In-person 6-8 wk post op [facility] Comment on above: In-person 6-8 wk pos t op Start: 04-13-2024 ANNUAL PCP TEAM NETWORK SYSTEMS INTEGRATOR DIONNE DISEASE VISIT ANNUAL PCP TEAM CHRONIC DISEASE VISIT [facility] Start: 03-31-2024 End: 03-31-2024 ambulatory 03/31/2024 1:00 PM EDT [facility] [address] [place] [address] Leonel Longo PA-C [address] [place] [address] Virtual 2wk post op [facility] Comment on above: Virtual 2wk post op Start: 03-24-2024 End: 06-23-2024 Basic metabolic 2000 panel - Serum or Plasma BASIC METABOLIC PANEL Lab Routine Hypertension, essential Hypercalcemia Expected: 03/24/2024, Expires: 06/23/2024 [facility] Comment on above: Expected: 03/24/2024 , Expires: 06/23/2024 Start: 03-17-2024 End: 03-17-2024 ambulatory 03/17/2024 9:00 AM EDT [facility] [address] [place] [address] Leonel Longo PA-C [address] [place] [address] Virtual 2wk post op [facility] Comment on above: Virtual 2wk post op Start: 03-03-2024 End: 03-03-2024 Admission to same day surgery center 03/03/2024 7:30 AM EDT - 03/03/2024 11:15 AM EDT Surgery Admitting [address] [place] [address] Pelon Greenfield MD [address] [place], [place] [phone] ARTHRODESIS CERVICAL POSTERIOR, BELOW C2 1ST SINGLE LEVEL Admitting Comment on above: ARTHRODESIS CERVICAL POSTERIOR, BELOW C2 1ST SINGLE LEVEL Start: 03-03-2024 End: 03-03-2024 Arthrodesis posterior/posterolateral ea addl ARTHRODESIS CERVICAL BELOW C2, 2ND CERVICAL LEVEL Pseudoarthrosis of cervical spine, subsequent encounter Radiculopathy, cervical region 03/03/2024 7:30 AM EDT [facility] Start: 03-03-2024 End: 03-03-2024 Arthrodesis pst/pstlat cervical belw c2 sgm ARTHRODESIS CERVICAL POSTERIOR, BELOW C2 1ST SINGLE LEVEL Pseudoarthrosis of cervical spine, subsequent encounter Radiculopathy, cervical region 03/03/2024 7:30 AM EDT [facility] Start: 03-03-2024 End: 03-03-2024 Posterior segmental instrumentation 3-6 vrt seg POSTERIOR SEGMENTAL INSTRUMENTATION FOLLOWING CERVICAL FUSION 3-6 LEVELS Pseudoarthrosis of cervical spine, subsequent encounter Radiculopathy, cervical region 03/03/2024 7:30 AM EDT [facility] Start: 03-03-2024 Subsequent hospital visit by physician Admitting Comment on above: Pseudoarthrosis of c ervical spine, subsequent encounter [S12.9XXD] Start: 02-24-2024 End: 02-24-2024 ambulatory 02/24/2024 2:00 PM EDT [facility] Patient Outreach [facility]ine [facility] [address] [place], [place] [id number] Provider, Nurse [facility] [address] [place] [address] pre op Spine Keeler Comment on above: pre op Start: 02-21-2024 End: 05-22-2024 Calcium [Mass/volume] in Serum or Plasma [facility] Comment on above: Expected: 02/21/2024 , Expires: 05/22/2024 Start: 02-21-2024 End: 05-22-2024 LIPID PANEL, NONFASTING [facility] Comment on above: Expected: 02/21/2024 , Expires: 05/22/2024 Start: 02-21-2024 End: 05-22-2024 [email or web address].intact [Mass/volume] in Serum or Plasma [facility] Comment on above: Expected: 02/21/2024 , Expires: 05/22/2024 Start: 02-21-2024 End: 05-22-2024 Prostate specific Ag [Mass/volume] in Serum or Plasma [facility] Work Phone: Comment on above: Expected: 02/21/2024 , Expires: 05/22/2024 Start: 02-21-2024 End: 02-21-2024 Patient encounter procedure 02/21/2024 10:00 AM EDT Office Visit Family Medicine Adrián [address] [place] [address] Colton Rosario MD [address] [place], [place] [id number] Physical/pre op Family Medicine Adrián Comment on above: Physical/pre op Start: 02-16-2024 End: 05-17-2024 Hemoglobin A1c in Blood HEMOGLOBIN A1C Lab Routine Impaired glucose tolerance test Expected: 02/16/2024, Expires: 05/17/2024 [facility] Comment on above: Expected: 02/16/2024 , Expires: 05/17/2024 Start: 02-16-2024 End: 05-17-2024 NICOTINE/COTININE NICOTINE/COTININE Lab Routine Tobacco use disorder Expected: 02/16/2024, Expires: 05/17/2024 [facility] Comment on above: Expected: 02/16/2024 , Expires: 05/17/2024 Start: 02-16-2024 End: 05-17-2024 STAPHYLOCOCCUS AUREUS & MRSA SCREEN, PCR, NASAL STAPHYLOCOCCUS AUREUS & MRSA SCREEN, PCR, NASAL Lab Routine Pre-op testing Expected: 02/16/2024, Expires: 05/17/2024 [facility] Work Phone: Comment on above: Expected: 02/16/2024 , Expires: 05/17/2024 Start: 02-16-2024 End: 02-16-2024 Anesthesia consultation 02/16/2024 1:30 PM EDT PAT Pre Anesthesia [address] [place] [address] 5, [address] [place] [address] preop Pre Anesthesia Comment on above: preop Start: 02-16-2024 End: 02-16-2024 Patient encounter procedure 02/16/2024 11:00 AM EDT Office Visit Spine Keeler [address] [id number] Pelon Greenfield MD [address] [place] [address] pre op Spine Keeler Comment on above: pre op Start: 02-14-2024 End: 02-14-2024 Patient encounter procedure Family Medicine Adrián Comment on above: Physical/pre op per Dr Rosario Start: 01-19-2024 End: 01-19-2024 Patient encounter procedure 01/19/2024 8:00 AM EDT Office Visit Family Luis F Sampson [address] [facility] [place] [address] Colton Rosario MD [address] [facility] [place] [address] Routine follow up to quit smoking [facility] Adrián Comment on above: Routine follow up to quit smoking Start: 01-14-2024 End: 01-14-2024 Follow-up encounter 01/14/2024 11:20 AM EDT [facility] Spine Keeler [address] [place] [address] Pelon Greenfield MD [address] [place], [place] [id number] Follow up Spine Keeler Comment on above: Follow up Start: 01-11-2024 End: 01-11-2024 Admission to same day surgery center 01/11/2024 9:20 AM EDT - 01/11/2024 9:45 AM EDT Surgery Pain Management [address] [place] [address] Amy Hanks MD [address] [place] [address] Diagnostic Selective Nerve Block Right C7 with lidocaine only Pain Management Comment on above: Diagnostic Selective Nerve Block Right C7 with lidocaine only Start: 01-11-2024 End: 01-11-2024 Njx dx/ther agt pvrt facet jt crv/thrc 1 level Selective Nerve Block Spinal stenosis in cervical region 01/11/2024 9:20 AM EDT [facility] Start: 01-11-2024 Subsequent hospital visit by physician 01/11/2024 9:20 AM EDT Hospital Encounter Pain Management [address] [place] [address] Amy Hanks MD [address] [place], [place] [id number] Spinal stenosis in cervical region [M48.02] Pain Management Comment on above: Spinal stenosis in c ervical region [M48.02] Start: 12-23-2023 End: 12-23-2023 Patient encounter procedure 12/23/2023 12:10 PM EDT Office Visit Spine Keeler [address] [place] [address] Pelon Greenfield MD [address] [place] [address] Dr. Greenfield schedule 12:12/22; follow-up cervical injection Spine Keeler Comment on above: Dr. Greenfield schedule 12 :12/22; follow-up cervical injection Start: 11-06-2023 ANNUAL PCP TEAM NETWORK SYSTEMS INTEGRATOR DIONNE DISEASE VISIT ANNUAL PCP TEAM CHRONIC DISEASE VISIT [facility] Start: 11-06-2023 BP CONTROLLED (<130/80) BP CONTROLLE D (<130/80) [facility] Start: 10-06-2023 ANNUAL PCP TEAM NETWORK SYSTEMS INTEGRATOR DIONNE DISEASE VISIT ANNUAL PCP TEAM CHRONIC DISEASE VISIT [facility] Start: 10-06-2023 PNEUMOCOCCAL (1 - PCV) PNEUMOCOCCAL (1 - PCV) [facility] Comment on above: Postponed from 11/18 (Declined at this time) Start: 10-06-2023 Pneumococcal vaccination Pneum ococcal Vaccine (1 - PCV) [facility] Comment on above: Postponed from 11/18 (Declined at this time) Start: 08-30-2023 Behavioral Health Screening Behavioral Health Screening [facility] Start: 08-30-2023 Depression Assessment Depression Ass essment [facility] Start: 04-30-2023 Covid-19 Vaccine ( season) Covid-19 Vaccine ( season) [facility] Start: 04-30-2023 Influenza vaccination C [facility] Start: 02-26-2023 Influenza vaccination INFLUENZA (#1) [facility] Comment on above: Postponed from 04/30 (Declined at this time) Start: 2022 Pneumococcal Vaccine : 50+ (1 of 1 - PCV) Pneumococcal Vaccine: 50+ (1 of 1 - PCV) [facility] Start: 2022 SHINGRIX VACCINE (1 of 2) LI GRIX VACCINE (1 of 2) [facility] Start: 10-20-2022 End: 12-20-2022 CBC W Auto Differential panel - Blood CBC + DIFF Lab Routine Polycythemia Expected: 10/20/2022, Expires: 12/20/2022 [facility] Work Phone: Comment on above: Expected: 10/20/2022 , Expires: 12/20/2022 Start: 10-20-2022 End: 12-20-2022 Erythropoietin (EPO) [Units/volume] in Serum or Plasma ERYTHROPOIETIN/EPO Lab Routine Polycythemia Expected: 10/20/2022, Expires: 12/20/2022 [facility] Work Phone: Comment on above: Expected: 10/20/2022 , Expires: 12/20/2022 Start: 10-20-2022 End: 12-20-2022 Prostate specific Ag [Mass/volume] in Serum or Plasma PSA/PROSTSPECAG DIAG Lab Routine Family history of prostate cancer Expected: 10/20/2022, Expires: 12/20/2022 [facility] Work Phone: Comment on above: Expected: 10/20/2022 , Expires: 12/20/2022 Start: 10-20-2022 End: 12-20-2022 Urinalysis complete panel - Urine URINALYSIS, WITH MICROSCOPIC Lab Routine Screening for prostate cancer Family history of prostate cancer Expected: 10/20/2022, Expires: 12/20/2022 [facility] Work Phone: Comment on above: Expected: 10/20/2022 , Expires: 12/20/2022 Start: 10-15-2022 Blood chemistry [facility] Start: 10-14-2022 Blood chemistry [facility] Start: 10-13-2022 Blood chemistry [facility] Start: 10-12-2022 Blood chemistry [facility] Start: 10-11-2022 Blood chemistry [facility] Start: 10-10-2022 Blood chemistry [facility] Start: 10-09-2022 Blood chemistry [facility] Start: 10-08-2022 Patient discharge [facility] Start: 10-06-2022 Following clinical pathway protocol [facility] Start: 10-06-2022 Assessment of risk o f venous thromboembolism [facility] Start: 10-06-2022 Insertion of cathete r into peripheral vein [facility] Start: 10-06-2022 Measuring intake and output [facility] Start: 10-06-2022 Providing care accor ding to standard [facility] Start: 10-06-2022 Provision of activit y privileges [facility] Start: 10-06-2022 Referral to occupati onal therapist [facility] Start: 10-06-2022 Referral to service [facility] Start: 10-06-2022 Tobacco use cessatio n education [facility] Start: 10-06-2022 [facility] Start: 10-06-2022 Admission procedure [facility] Start: 10-06-2022 Verification routine [facility] Start: 09-30-2022 End: 11-30-2022 CBC W Auto Differential panel - Blood CBC + DIFF Lab Routine Essential hypertension with goal blood pressure less than 140/90 Mixed hyperlipidemia Expected: 09/30/2022, Expires: 11/30/2022 [facility] Work Phone: Comment on above: Expected: 09/30/2022 , Expires: 11/30/2022 Start: 09-30-2022 End: 11-30-2022 Comprehensive metabolic 2000 panel - Serum or Plasma COMP METABOLIC PANEL Lab Routine Essential hypertension with goal blood pressure less than 140/90 Mixed hyperlipidemia Expected: 09/30/2022, Expires: 11/30/2022 [facility] Work Phone: Comment on above: Expected: 09/30/2022 , Expires: 11/30/2022 Start: 09-30-2022 End: 11-30-2022 Hemoglobin A1c in Blood HGB A1C Lab Routine Screening for diabetes mellitus Expected: 09/30/2022, Expires: 11/30/2022 [facility] Work Phone: Comment on above: Expected: 09/30/2022 , Expires: 11/30/2022 Start: 09-30-2022 End: 11-30-2022 LIPID PANEL, NONFASTING LIPID PANEL, NONFASTING Lab Routine Essential hypertension with goal blood pressure less than 140/90 Mixed hyperlipidemia Expected: 09/30/2022, Expires: 11/30/2022 [facility] Work Phone: Comment on above: Expected: 09/30/2022 , Expires: 11/30/2022 Start: 09-30-2022 End: 11-30-2022 Urinalysis complete panel - Urine URINALYSIS, WITH MICROSCOPIC Lab Routine Essential hypertension with goal blood pressure less than 140/90 Mixed hyperlipidemia Expected: 09/30/2022, Expires: 11/30/2022 [facility] Work Phone: Comment on above: Expected: 09/30/2022 , Expires: 11/30/2022 Start: 08-30-2022 DEPRESSION ASSESSMENT DEPRESSION ASS ESSMENT [facility] Start: 08-03-2022 End: 08-17-2022 Influenza virus A and B RNA and SARS-CoV-2 (COVID-19) N gene panel - Respiratory specimen by REINALDO with probe detection [facility] Work Phone: Comment on above: Expected: 08/03/2022 , Expires: 08/17/2022 Start: 06-09-2022 ANNUAL PCP TEAM NETWORK SYSTEMS INTEGRATOR DIONNE DISEASE VISIT ANNUAL PCP TEAM CHRONIC DISEASE VISIT [facility] Start: 04-30-2022 Influenza vaccination C [facility] Start: 03-03-2022 Patient discharge [facility] Work Phone: Start: 03-01-2022 Following clinical pathway protocol [facility] Work Phone: Start: 03-01-2022 Assessment of risk o f venous thromboembolism [facility] Work Phone: Start: 03-01-2022 Incentive spirometry [facility] Work Phone: Start: 03-01-2022 Insertion of cathete r into peripheral vein [facility] Work Phone: Start: 03-01-2022 Measuring intake and output [facility] Work Phone: Start: 03-01-2022 Oxygen therapy [facility] Work Phone: Start: 03-01-2022 Providing care accor ding to standard [facility] Work Phone: Start: 03-01-2022 Referral to service [facility] Work Phone: Start: 03-01-2022 Troponin I measurement [facility] Work Phone: Start: 03-01-2022 End: 03-01-2022 [facility] Work Phone: Start: 03-01-2022 Blood chemistry [facility] Work Phone: Start: 03-01-2022 End: 03-01-2022 Blood culture [facility] Work Phone: Start: 03-01-2022 Verification routine [facility] Work Phone: Start: 03-01-2022 Admission procedure [facility] Work Phone: Start: 03-01-2022 [facility] Work Phone: Start: 01-07-2022 Adult depression screening assessment DEPRESSION SCREENING [facility] Start: 08-30-2021 DEPRESSION ASSESSMENT DEPRESSION ASS ESSMENT [facility] Start: 05-21-2021 COVID-19 VACCINE (3 - Booster for Moderna series) COVID-19 VACCINE (3 - Booster for Moderna series) [facility] Start: 02-13-2021 COVID-19 VACCINE (3 - Booster for Moderna series) COVID-19 VACCINE (3 - Booster for Moderna series) [facility] Start: 02-13-2021 COVID-19 VACCINE (3 - Moderna series) COVID-19 VACCINE (3 - Moderna series) [facility] Start: 09-28-2019 Colonoscopy COLONOSCOPY [facility] Start: 09-28-2019 COLORECTAL CANCER SCREENING COLORECTAL CANCER SCREENING [facility] Start: 2017 COLOGUARD (FIT-DNA) COLOGUARD (FIT-D NA) [facility] Start: [address] COLONOGRAPHY [facility] Start: 2017 FECAL OCCULT BLOOD FECAL OCCULT BLOO D [facility] Start: 2017 Screening for malign ant neoplasm of colon [facility] Start: 2017 SIGMOIDOSCOPY SIGMOIDOSCOPY [facility] Start: 1990 BP CONTROLLED (<130/80) BP CONTROLLE D (<130/80) [facility] Start: 1990 Depression Screening Depression Scre ening [facility] Start: 1978 PNEUMOCOCCAL (1 - PCV) [facility] Start: 1978 Pneumococcal vaccination Pneum ococcal Vaccine (1 of 2 - PCV) [facility] Start: 1972 HEPATITIS B (1 of 3 - 3-dose series) HEPATITIS B (1 of 3 - 3-dose series) [facility] Acetaminophen [Mass/volume] in Unspecified specimen [facility] Work Phone: Amphetamine [Mass/vo lume] in Urine [facility] Work Phone: Anion gap measurement [facility] Work Phone: Anion gap measurement [facility] Anion gap measurement [facility] Anion gap measurement [facility] Anion gap measurement [facility] Anion gap measurement [facility] Anion gap measurement [facility] Anion gap measurement [facility] Arthrodesis posterior/posterolateral ea addl ARTHRODESIS CERVICAL BELOW C2, 2ND CERVICAL LEVEL Pseudoarthrosis of cervical spine, subsequent encounter Radiculopathy, cervical region [facility] Arthrodesis pst/pstl at cervical belw c2 sgm ARTHRODESIS CERVICAL POSTERIOR, BELOW C2 1ST SINGLE LEVEL Pseudoarthrosis of cervical spine, subsequent encounter Radiculopathy, cervical region [facility] Bacteria identified in Blood by Culture Blood Culture [facility] Work Phone: Benzodiazepine measurement, urine [facility] Work Phone: Bilirubin measuremen t, urine [facility] Work Phone: Blood culture [facility] Work Phone: BUN/Creatinine ratio [facility] Work Phone: BUN/Creatinine ratio [facility] BUN/Creatinine ratio [facility] BUN/Creatinine ratio [facility] BUN/Creatinine ratio [facility] BUN/Creatinine ratio [facility] BUN/Creatinine ratio [facility] BUN/Creatinine ratio [facility] Calcium [Mass/volume ] in Serum or Plasma [facility] Work Phone: Calcium [Mass/volume ] in Serum or Plasma [facility] Calcium [Mass/volume ] in Serum or Plasma [facility] Calcium [Mass/volume ] in Serum or Plasma [facility] Calcium [Mass/volume ] in Serum or Plasma [facility] Calcium [Mass/volume ] in Serum or Plasma [facility] Calcium [Mass/volume ] in Serum or Plasma [facility] Calcium [Mass/volume ] in Serum or Plasma [facility] Carbon dioxide, tota l [Moles/volume] in Serum or Plasma [facility] Work Phone: Carbon dioxide, tota l [Moles/volume] in Serum or Plasma [facility] Carbon dioxide, tota l [Moles/volume] in Serum or Plasma [facility] Carbon dioxide, tota l [Moles/volume] in Serum or Plasma [facility] Carbon dioxide, tota l [Moles/volume] in Serum or Plasma [facility] Carbon dioxide, tota l [Moles/volume] in Serum or Plasma [facility] Carbon dioxide, tota l [Moles/volume] in Serum or Plasma [facility] Carbon dioxide, tota l [Moles/volume] in Serum or Plasma [facility] Chloride [Moles/volu me] in Serum or Plasma [facility] Work Phone: Chloride [Moles/volu me] in Serum or Plasma [facility] Chloride [Moles/volu me] in Serum or Plasma [facility] Chloride [Moles/volu me] in Serum or Plasma [facility] Chloride [Moles/volu me] in Serum or Plasma [facility] Chloride [Moles/volu me] in Serum or Plasma [facility] Chloride [Moles/volu me] in Serum or Plasma [facility] Chloride [Moles/volu me] in Serum or Plasma [facility] Cocaine measurement, urine [facility] Work Phone: Creatinine [Moles/vo lume] in Serum or Plasma [facility] Work Phone: Creatinine [Moles/vo lume] in Serum or Plasma [facility] Creatinine [Moles/vo lume] in Serum or Plasma [facility] Creatinine [Moles/vo lume] in Serum or Plasma [facility] Creatinine [Moles/vo lume] in Serum or Plasma [facility] Creatinine [Moles/vo lume] in Serum or Plasma [facility] Creatinine [Moles/vo lume] in Serum or Plasma [facility] Creatinine [Moles/vo lume] in Serum or Plasma [facility] End: 10-06-2023 ECG COMPLETE ECG COMPLETE ECG Routine Hypertension, essential 1 Occurrences starting 10/06/2022 until 10/06/2023 [facility] Work Phone: Comment on above: 1 Occurrences starti ng 10/06/2022 until 10/06/2023 ECG COMPLETE ECG COMPLETE ECG 10/06/2022 7:58 AM EST [facility] ECG COMPLETE ECG COMPLETE ECG Routine Pre-op evaluation 02/16/2024 1:19 PM EDT [facility] Work Phone: ECG COMPLETE ECG COMPLETE ECG Routine SOB (shortness of breath) Bilateral leg edema Ordered: 04/20/2024 [facility] Comment on above: Ordered: 04/20/2024 End: 05-05-2024 EMG(NEURO/NI) EMG(NEURO/NI) EMG Routine DDD (degenerative disc disease), lumbar Spinal stenosis of cervical region Hand numbness H/O cervical spine surgery 1 Occurrences starting 05/05/2023 until 05/05/2024 [facility] Work Phone: Comment on above: 1 Occurrences starti ng 05/05/2023 until 05/05/2024 Giardia lamblia Ag [Presence] in Stool by Immunoassay [facility] Work Phone: Glucose [Mass/volume ] in Serum or Plasma [facility] Work Phone: Glucose [Mass/volume ] in Serum or Plasma [facility] Glucose [Mass/volume ] in Serum or Plasma [facility] Glucose [Mass/volume ] in Serum or Plasma [facility] Glucose [Mass/volume ] in Serum or Plasma [facility] Glucose [Mass/volume ] in Serum or Plasma [facility] Glucose [Mass/volume ] in Serum or Plasma [facility] Glucose [Mass/volume ] in Serum or Plasma [facility] Hematocrit [Volume Fraction] of Blood [facility] Hematocrit [Volume Fraction] of Blood [facility] Hematocrit [Volume Fraction] of Blood [facility] Hematocrit [Volume Fraction] of Blood [facility] Hematocrit [Volume Fraction] of Blood [facility] Hematocrit [Volume Fraction] of Blood [facility] Hematocrit [Volume Fraction] of Blood [facility] Hemoglobin [Mass/vol ume] in Blood [facility] Hemoglobin [Mass/vol ume] in Blood [facility] Hemoglobin [Mass/vol ume] in Blood [facility] Hemoglobin [Mass/vol ume] in Blood [facility] Hemoglobin [Mass/vol ume] in Blood [facility] Hemoglobin [Mass/vol ume] in Blood [facility] Hemoglobin [Mass/vol ume] in Blood [facility] Hemoglobin [Presence ] in Urine [facility] Work Phone: Leukocytes [#/volume ] in Blood [facility] Leukocytes [#/volume ] in Blood [facility] Leukocytes [#/volume ] in Blood [facility] Leukocytes [#/volume ] in Blood [facility] Leukocytes [#/volume ] in Blood [facility] Leukocytes [#/volume ] in Blood [facility] Leukocytes [#/volume ] in Blood [facility] Mean corpuscular hemoglobin concentration determination [facility] Mean corpuscular hemoglobin concentration determination [facility] Mean corpuscular hemoglobin concentration determination [facility] Mean corpuscular hemoglobin concentration determination [facility] Mean corpuscular hemoglobin concentration determination [facility] Mean corpuscular hemoglobin concentration determination [facility] Mean corpuscular hemoglobin concentration determination [facility] Mean corpuscular hemoglobin determination [facility] Mean corpuscular hemoglobin determination [facility] Mean corpuscular hemoglobin determination [facility] Mean corpuscular hemoglobin determination [facility] Mean corpuscular hemoglobin determination [facility] Mean corpuscular hemoglobin determination [facility] Mean corpuscular hemoglobin determination [facility] Measurement of 3,4-methylenedioxymethamp hetamine in urine [facility] Work Phone: Measurement of keton es in urine using dipstick [facility] Work Phone: Measurement of renal function [facility] Work Phone: Measurement of renal function [facility] Measurement of renal function [facility] Measurement of renal function [facility] Measurement of renal function [facility] Measurement of renal function [facility] Measurement of renal function [facility] Measurement of renal function [facility] Methadone measuremen t, urine [facility] Work Phone: Microscopic urinalysis [facility] Work Phone: End: 06-03-2024 Mri spinal canal cervical w/o contrast matrl MRI CERVICAL SPINE WO IVCON Radiology Routine DDD (degenerative disc disease), lumbar Spinal stenosis of cervical region Hand numbness 1 Occurrences starting 05/05/2023 until 06/03/2024 [facility] Work Phone: Comment on above: 1 Occurrences starti ng 05/05/2023 until 06/03/2024 End: 07-17-2024 Mri spinal canal cervical w/o contrast matrl MRI CERVICAL SPINE WO IVCON Radiology Routine Spinal stenosis of cervical region 1 Occurrences starting 06/18/2023 until 07/17/2024 [facility] Work Phone: Comment on above: 1 Occurrences starti ng 06/18/2023 until 07/17/2024 Neutrophil count [facility] Neutrophil count [facility] Neutrophil count [facility] Neutrophil count [facility] Neutrophil count [facility] Neutrophil count [facility] Neutrophil count [facility] Neutrophil percent differential count [facility] Neutrophil percent differential count [facility] Neutrophil percent differential count [facility] Neutrophil percent differential count [facility] Neutrophil percent differential count [facility] Neutrophil percent differential count [facility] Neutrophil percent differential count [facility] Njx dx/ther agt pvrt facet jt crv/thrc 1 level [facility] Ova and parasites identified in Unspecified specimen by Light microscopy [facility] Work Phone: Patient Education ED Hypertensio n, Established ED High Blood Pressure Hypertension [facility] Work Phone: Patient referral [facility] Work Phone: pH of Urine [facility] Work Phone: Phencyclidine [Prese nce] in Urine [facility] Work Phone: Physical performance test/susie w/reprt ea 15 min PHYSICAL PERFORMANCE TEST Procedures Routine Spinal stenosis in cervical region Ordered: 12/01/2023 [facility] Work Phone: Comment on above: Ordered: 12/01/2023 Platelets [#/volume] in Blood [facility] Platelets [#/volume] in Blood [facility] Platelets [#/volume] in Blood [facility] Platelets [#/volume] in Blood [facility] Platelets [#/volume] in Blood [facility] Platelets [#/volume] in Blood [facility] Platelets [#/volume] in Blood [facility] Posterior segmental instrumentation 3-6 vrt seg POSTERIOR SEGMENTAL INSTRUMENTATION FOLLOWING CERVICAL FUSION 3-6 LEVELS Pseudoarthrosis of cervical spine, subsequent encounter Radiculopathy, cervical region [facility] Potassium [Moles/vol ume] in Serum or Plasma [facility] Work Phone: Potassium [Moles/vol ume] in Serum or Plasma [facility] Potassium [Moles/vol ume] in Serum or Plasma [facility] Potassium [Moles/vol ume] in Serum or Plasma [facility] Potassium [Moles/vol ume] in Serum or Plasma [facility] Potassium [Moles/vol ume] in Serum or Plasma [facility] Potassium [Moles/vol ume] in Serum or Plasma [facility] Potassium [Moles/vol ume] in Serum or Plasma [facility] Red blood cell count [facility] Red blood cell count [facility] Red blood cell count [facility] Red blood cell count [facility] Red blood cell count [facility] Red blood cell count [facility] Red blood cell count [facility] Red cell distributio n width determination [facility] Red cell distributio n width determination [facility] Red cell distributio n width determination [facility] Red cell distributio n width determination [facility] Red cell distributio n width determination [facility] Red cell distributio n width determination [facility] Red cell distributio n width determination [facility] Respiratory microbia l culture Respiratory Culture [facility] Work Phone: Salicylates [Mass/vo lume] in Serum or Plasma [facility] Work Phone: End: 07-08-2023 Screening colonoscopy COLONOSCOPY SCREENING Endoscopy Routine Screening for colon cancer 1 Occurrences starting 07/08/2022 until 07/08/2023 [facility] Work Phone: Comment on above: 1 Occurrences starti ng 07/08/2022 until 07/08/2023 Sodium [Moles/volume ] in Serum or Plasma [facility] Work Phone: Sodium [Moles/volume ] in Serum or Plasma [facility] Sodium [Moles/volume ] in Serum or Plasma [facility] Sodium [Moles/volume ] in Serum or Plasma [facility] Sodium [Moles/volume ] in Serum or Plasma [facility] Sodium [Moles/volume ] in Serum or Plasma [facility] Sodium [Moles/volume ] in Serum or Plasma [facility] Sodium [Moles/volume ] in Serum or Plasma [facility] Specific gravity of Urine [facility] Work Phone: Troponin I measurement [facility] Work Phone: Urea nitrogen [Mass/volume] in Serum or Plasma [facility] Work Phone: Urea nitrogen [Mass/volume] in Serum or Plasma [facility] Urea nitrogen [Mass/volume] in Serum or Plasma [facility] Urea nitrogen [Mass/volume] in Serum or Plasma [facility] Urea nitrogen [Mass/volume] in Serum or Plasma [facility] Urea nitrogen [Mass/volume] in Serum or Plasma [facility] Urea nitrogen [Mass/volume] in Serum or Plasma [facility] Urea nitrogen [Mass/volume] in Serum or Plasma [facility] Urinalysis, blood, qualitative [facility] Work Phone: Urine barbiturate measurement [facility] Work Phone: Urine cannabinoid measurement [facility] Work Phone: Urine dipstick for glucose [facility] Work Phone: Urine dipstick for leukocyte esterase [facility] Work Phone: Urine dipstick for nitrite [facility] Work Phone: Urine dipstick for protein [facility] Work Phone: Urine examination [facility] Work Phone: Urine microscopy: epithelial cells [facility] Work Phone: Urine Microscopy: wh ite cells [facility] Work Phone: Urine opiate measurement [facility] Work Phone: Urobilinogen [Presen ce] in Urine [facility] Work Phone: End: 10-20-2025 XR Shoulder - left 3 Views XR SHOULDER GENERAL 3V OR MORE AP/TRUE AP/OTHER LEFT Radiology Routine Acute pain of left shoulder Left shoulder tendonitis 1 Occurrences starting 09/20/2024 until 10/20/2025 [facility] Work Phone: Comment on above: 1 Occurrences starti ng 09/20/2024 until 10/20/2025 [facility] Immunizations Immunization Date Immunization Notes Care Provider June garcia 11-02-2024 tetanus toxoid, redu yina diphtheria toxoid, and acellular pertussis vaccine, adsorbed Colton Rosario MD Work Phone: [facility] 11-22-2017 influenza virus vaccine, unspecified formulation Jaylan Kailash SANTOS [facility] 06-28-2014 tetanus toxoid, redu yina diphtheria toxoid, and acellular pertussis vaccine, adsorbed Melissa Carrasquillo PA-C Work Phone: [facility] Work Phone: Payers Date Payer Category Payer Blue [employer] Blue Shield BLUE CARD PPO OOS Member Subscriber Plan / Payer (Effective 2024-Present) Name: Jason Moore Relation to Subscriber: Self Name: Jason Moore Payer ID: [id number] (NAIC) Group ID: [id number] Type: PPO Address: [facility] [address] [place] [id number] 2024 Unknown [id number] 2022 Self-pay [id number] 2021 Private Health Insurance [id number] 2021 Private Health Insurance [id number] 2018 Unknown VICTORINO PATTERSON SS PPO [id number] 2018-Present [phone] [address] [place] [address] PPO [id number] 2018 Unknown [id number] Private Health Insurance [facility] [id number] Unknown [id number] Unknown [id number] Unknown [id number] Unknown [id number] Unknown [id number] Unknown [id number] Unknown [id number] Unknown [id number] Unknown [id number] Social History Date Type Detail Facility Start: 11-22-2017 End: 08-03-2022 Tobacco smoking status NHIS Smokes tobacco daily [facility] Start: 02-26-2022 End: 11-02-2024 Alcohol intake Current drinker of alcohol (finding) [facility] Start: 04-29-2021 History SDOH Alcohol Comment moderate amount of alcohol, 1-2 drinks a day [facility] Start: 1970 Sex Assigned At Not on file C [facility] Start: 11-16-2020 End: 02-26-2022 Exposure to SARS-CoV-2 (event) Not sure [facility] Work Phone: Start: 03-01-2022 End: 10-06-2022 Tobacco smoking status NHIS Unknown if ever smoked [facility] Start: 03-01-2022 Occasional [facility] Start: 03-01-2022 None [facility] Start: 1970 Sex Assigned At Male [facility] Start: 01-13-2003 End: 01-14-2024 History of tobacco use Cigarette Smoker [facility] Start: 11-22-2017 End: 04-08-2023 Cigarettes smoked current (pack per day) - Reported 0.5 [facility] Work Phone: Start: 11-22-2017 End: 04-20-2024 Tobacco use and exposure Smokeless tobacco non-user [facility] Start: 10-06-2022 Alcohol Comment 3-4 beers per day Cl [facility] Start: 03-31-2023 End: 04-08-2023 Tobacco use panel [facility] Work Phone: Adult Depression Screening Assessment 0 [facility] Work Phone: Start: 02-01-2024 Sexual orientation Heterosexual (kevin garcia) [facility] Start: 02-16-2024 End: 04-20-2024 Tobacco smoking status NHIS Ex-smoker [facility] Start: 01-13-2003 End: 01-14-2024 History of tobacco use Current smoker [facility] Start: 02-16-2024 Alcohol Comment x 1 day ago, 2 cocktails and beer [facility] Start: 07-03-2011 Alcohol Comment moderate amoun t of alcohol [facility] Medical Equipment Procedure Code Equipment Code Equipment Origin al Text Equipment Identifier Dates Spacer Avs 4d 6m m Spinal Bone Plug - [id number] Start: 06-17-2021 Spacer Avs 4d 6m m Spinal Bone Plug - [id number] Start: 06-17-2021 Plate 38mm 2 Lvl Marshall Bn Spnl - [id number] Start: 06-17-2021 Marshall Cervical P late Variable Screw 4.5mm X 16mm [id number] Start: 06-17-2021 Marshall Self-Start ing Variable Screw 4mm X 16 Mm [id number] Start: 06-17-2021 Goals Date Patient Goal Desired Activity /State Functional Status Date Assessment Result Facility 03-04-2024 Are you deaf, or do you have serious difficulty hearing No 03/04/2024 2:52 PM Dayday Alvarez RN No [facility] 03-04-2024 Are you blind, or do you have serious difficulty seeing, even when wearing glasses No 03/04/2024 2:52 PM EDT Dayday Kim RN No [facility] 03-04-2024 Do you have serious difficulty walking or climbing stairs No 03/04/2024 2:52 PM EDT Dayday Kim RN No [facility] 03-04-2024 Do you have difficul ty dressing or bathing No 03/04/2024 2:52 PM EDT Dayday Kim RN No [facility] 03-04-2024 Because of a physica l, mental, or emotional condition, do you have difficulty doing errands alone such as visiting a physician's office or shopping No 03/04/2024 2:52 PM EDT Dayday Kim RN No [facility] 10-08-2022 Functional status Up ad steve [facility] Work Phone: 03-03-2022 Functional status Up ad steve [facility] Work Phone: 03-02-2022 Functional status Tolerates Activity Well [facility] Work Phone: Mental Status Date Assessment Result Facility 03-04-2024 Because of a physica l, mental, or emotional condition, do you have serious difficulty concentrating, remembering, or making decisions No 03/04/2024 2:52 PM EDT Dayday Kim RN No [facility] 10-08-2022 Cognitive function Voice/Name [facility] Work Phone: 10-06-2022 Cognitive function Level Of Cons ciousness Awake;Alert;Appropriate [facility] Work Phone: 03-03-2022 Cognitive function Voice/Name [facility] Work Phone: Clinical Notes 12-16-2020 to 02-08-2025 Telephone Encounter - Jarred Branham RN - 02/08/2025 12:21 PM EDTTelephone Encounter - Jarred Branham RN - 02/08/2025 12:21 PM EDTPatient Colton Ortega MD - 11/02/2024 3:20 PM EST Note Date & Type Note Facility 02-08-2025 Telephone encounter Note Pt reports he is having moderate lower back pain for 1.5 weeks. Worse when sitting still, relief when walking. Reviewed protocol recommendations with patient. Protocol recommends see provider within 3 days. Scheduled appt for tomorrow per pt request. Pt agreeable to ER if condition worsens. Reason for Disposition [1] MODERATE back pain (e.g., interferes with normal activities) AND [2] present > 3 days Answer Assessment - Initial Assessment Questions 1. ONSET: Last week and a half has gotten worse. 2. LOCATION: Lower back 3. SEVERITY: Moderate 4. PATTERN: Constant for last week and a half. Worse when sitting still, relief when moving. 5. RADIATION: Radiates down to left thigh 6. CAUSE: Hx DDD 7. BACK OVERUSE: No back overuse 8. MEDICINES: Takes ibuprofen and heating pad and hot showers. 9. NEUROLOGIC SYMPTOMS: For the last week concerned about incontinence of stool. Urine is fine. Left thigh feels weird when back tightens up. No weakness. 10. OTHER SYMPTOMS: No other symptoms. 11. : N/A Protocols used: Back [id number] [facility] 02-08-2025 Miscellaneous Notes Pt reports he is having moderate lower back pain for 1.5 weeks. Worse when sitting still, relief when walking. Reviewed protocol recommendations with patient. Protocol recommends see provider within 3 days. Scheduled appt for tomorrow per pt request. Pt agreeable to ER if condition worsens. Reason for Disposition [1] MODERATE back pain (e.g., interferes with normal activities) AND [2] present > 3 days Answer Assessment - Initial Assessment Questions 1. ONSET: Last week and a half has gotten worse. 2. LOCATION: Lower back 3. SEVERITY: Moderate 4. PATTERN: Constant for last week and a half. Worse when sitting still, relief when moving. 5. RADIATION: Radiates down to left thigh 6. CAUSE: Hx DDD 7. BACK OVERUSE: No back overuse 8. MEDICINES: Takes ibuprofen and heating pad and hot showers. 9. NEUROLOGIC SYMPTOMS: For the last week concerned about incontinence of stool. Urine is fine. Left thigh feels weird when back tightens up. No weakness. 10. OTHER SYMPTOMS: No other symptoms. 11. : N/A Protocols used: Back [id number] documented in this encounter [facility] 12-21-2024 Note HNO ID: [id number] Author: ASHLEY PUGH APRN.SONOGRAPHY TECHNICIAN Service: ? Author Type: Nurse Practitioner Type: Progress Notes Filed: 12/21/2024 11:21 Note Text: Chief Complaint Patient presents with: Back Pain: Low back pain X 6 days HPI Jason Moore is a 54 year old male who presents here today for Above Complaints.. Patient presents for acute on chronic low back pain x6 days. Upon initial eval BP 171/107. Patient reports he has not taken his BP meds for over a week as he has been out of them. Reports he has been using biofreeze, ibuprofen, heat and foam roller with no improvement in symptoms. Denies numbness/tingling to lower extremities. Past medical history, appointments, medications, allergies reviewed. Previous Medical History PAST MEDICAL HISTORY Diagnosis Date Abnormal echocardiogram 02/16/2024 Alcohol use 07/10/2016 3-5 day Back pain Cervical radiculopathy 12/16/2020 DDD (degenerative disc disease), lumbar 05/17/2023 ED (erectile dysfunction) of organic origin 11/05/2022 Elevated hemoglobin A1c 02/21/2024 Family history of colon cancer 09/28/2014 Fatty liver 03/28/2016 Former smoker 02/16/2024 H/O cervical spine surgery 06/17/2021 Heart rate fast on BB Hypercalcemia 02/23/2024 Possibly HCTZ related Hypertension Hypertension, essential 06/28/2014 LVH (left ventricular hypertrophy) 11/05/2022 With grade 1 Solomon dysfunction. Metabolic dysfunction-associated steatohepatitis (MASH) 03/28/2016 Mixed hyperlipidemia 06/28/2014 Morbid obesity (HCC) 02/16/2024 Obesity, Class II, BMI 35-39.9 12/16/2020 JOSELITO (obstructive sleep apnea) resolved with weight loss Spinal stenosis in cervical region Spinal stenosis of cervical region 03/26/2021 Tachycardia, unspecified on BB Previous Surgical History PAST SURGICAL HISTORY Procedure Laterality Date ALLOGRAFT FOR SPINE SURGERY ONLY STRUCTURAL 08/30/2011 FUSION AND REPLACED DISC lumbar ANTERIOR INSTRUMENTATION 2-3 VERTEBRAL SEGMENTS APPL-INTERVERTEBRAL BIOMECHANICAL DEVICES COLONOSCOPY FLX DX W/COLLJ SPEC WHEN PFRMD 09/28/2014 Colonoscopy, repeat 5 yrs PAST SURGICAL HISTORY OF back injections and disc biopsy PAST SURGICAL HISTORY OF 06/17/2021 C5-C6, C6-C7 anterior cervical discectomy and fusion, Insertion of intervertebral interbody device at C5-C6, C6-C7, anterior spinal instrumentation C5-C7, Use of structural allograft Family History FAMILY HISTORY Problem Relation Age of Onset Colon Cancer Father 50 Diabetes Father Hypertension Father Prostate Cancer Father 54 Colon Cancer Paternal Grandfather Diabetes Paternal Grandfather Prostate Cancer Paternal Grandfather 50'S Hypertension Paternal Grandmother Coronary Artery Disease Maternal Aunt Hypertension Maternal Aunt Hypertension Maternal Aunt Diabetes Paternal Aunt Hypertension Paternal Aunt Colon Cancer Paternal Uncle LATE 50'S Diabetes Paternal Uncle Hypertension Paternal Uncle Prostate Cancer Paternal Uncle 50'S Anesthesia Problems No Family History Patient Allergies ALLERGIES Allergen Reactions Ativan [Lorazepam] GI Upset Hctz [Thiazides] Other: See Comments hypercalcemia Paxil [Paroxetine H* GI Upset diarrhea Zoloft [Sertraline] GI Upset Current Medications Current Outpatient Medications on File Prior to Visit Medication Sig sildenafil (VIAGRA) 100 mg tablet Take 1 tablet by mouth once daily as needed. Take 30-60 minutes before sexual activity. methocarbamol (ROBAXIN) 750 mg tablet 1 tablet by ORAL/FEEDING TUBE route every 8 hours as needed (muscle spasms). No current facility-administered medications on file prior to visit. Social History Social History Tobacco Use Smoking status: Former Current packs/day: 0.00 Average packs/day: 0.5 packs/day for 21.0 years (10.5 ttl pk-yrs) Types: Cigarettes Start date: 01/13/2003 Quit date: 01/14/2024 Years since quittin.9 Smokeless tobacco: Never Vaping Use Vaping status: Never Used Substance Use Topics Alcohol use: Yes Alcohol/week: 12.0 standard drinks of alcohol Types: 12 Cans of Beer (12oz) per week Comment: x 1 day ago, 2 cocktails and beer Drug use: Never Review of Symptoms REVIEW OF SYSTEMS SEE HPI EXAM: BP 171/107 Pulse 89 Wt 116 kg (255 lb 11.7 oz) BMI 37.22 kg/m? General Appearance: Well appearing, alert, in no acute distress, well-hydrated, well nourished.. Back:Full ROM with flexion, extension limited. Tenderness with palpation of bilateral muscles of the lumbar region. reflexes are 2+ and symmetric, motor and sensory appear to be normal, negative SLR test Health Maintenance List Depression Screening Never done Pneumococcal Vaccine: 50+(1 of 1 - PCV) Never done Shingrix Vaccine(1 of 2) due on 02/20/2025 Serum Creatinine due on 04/20/2025 Annual PCP Team Chronic Disease Visit due on 11/02/2025 BP Controlled (<130/80) due on 11/02/2025 Diabetes Screening due on 04/20/2027 (more content not included)... [facility] 11-02-2024 Instructions Colton Rosario MD - 11/02/2024 4:12 PM EST Please get labs and urine test done on or after 04/20/2025 prior to your next visit. documented in this encounter [facility] 11-02-2024 History of Presen t illness Narrative Chief Complaint Patient presents with: Follow Up HPI [facility] Oscar is a 53 year old male who presents here today for routine f/u PMHx: HTN, high cholesterol, impaired fasting glucose, obesity, tobacco use and alcohol use. At last appt patient was placed on prednisone and referred to PHYSICAL THERAPY for left shoulder pain. Patient started doing a HEP program his son gave him who is in PHYSICAL THERAPY school. This has helped and slowly continues to improve. The steroid burst was also helpful. Currently pleased with progression and want to continue with the HEP Patient otherwise has been doing well. Past medical history, appointments, medications, allergies reviewed. Previous Medical History PAST MEDICAL HISTORY Diagnosis Date Abnormal echocardiogram 02/16/2024 Alcohol use 07/10/2016 3-5 day Back pain Cervical radiculopathy 12/16/2020 DDD (degenerative disc disease), lumbar 05/17/2023 ED (erectile dysfunction) of organic origin 11/05/2022 Elevated hemoglobin A1c 02/21/2024 Family history of colon cancer 09/28/2014 Fatty liver 03/28/2016 Former smoker 02/16/2024 H/O cervical spine surgery 06/17/2021 Heart rate fast on BB Hypercalcemia 02/23/2024 Possibly HCTZ related Hypertension Hypertension, essential 06/28/2014 LVH (left ventricular hypertrophy) 11/05/2022 With grade 1 Solomon dysfunction. Metabolic dysfunction-associated steatohepatitis (MASH) 03/28/2016 Mixed hyperlipidemia 06/28/2014 Morbid obesity (HCC) 02/16/2024 Obesity, Class II, BMI 35-39.9 12/16/2020 JOSELITO (obstructive sleep apnea) resolved with weight loss Spinal stenosis in cervical region Spinal stenosis of cervical region 03/26/2021 Tachycardia, unspecified on BB Previous Surgical History PAST SURGICAL HISTORY Procedure Laterality Date ALLOGRAFT FOR SPINE SURGERY ONLY STRUCTURAL 08/30/2011 FUSION AND REPLACED DISC lumbar ANTERIOR INSTRUMENTATION 2-3 VERTEBRAL SEGMENTS APPL-INTERVERTEBRAL BIOMECHANICAL DEVICES COLONOSCOPY FLX DX W/COLLJ SPEC WHEN PFRMD 09/28/2014 Colonoscopy, repeat 5 yrs PAST SURGICAL HISTORY OF back injections and disc biopsy PAST SURGICAL HISTORY OF 06/17/2021 C5-C6, C6-C7 anterior cervical discectomy and fusion, Insertion of intervertebral interbody device at C5-C6, C6-C7, anterior spinal instrumentation C5-C7, Use of structural allograft Family History FAMILY HISTORY Problem Relation Age of Onset Colon Cancer Father 50 Diabetes Father Hypertension Father Prostate Cancer Father 54 Colon Cancer Paternal Grandfather Diabetes Paternal Grandfather Prostate Cancer Paternal Grandfather 50'S Hypertension Paternal Grandmother Coronary Artery Disease Maternal Aunt Hypertension Maternal Aunt Hypertension Maternal Aunt Diabetes Paternal Aunt Hypertension Paternal Aunt Colon Cancer Paternal Uncle LATE 50'S Diabetes Paternal Uncle Hypertension Paternal Uncle Prostate Cancer Paternal Uncle 50'S Anesthesia Problems No Family History Patient Allergies ALLERGIES Allergen Reactions Ativan [Lorazepam] GI Upset Hctz [Thiazides] Other: See Comments hypercalcemia Paxil [Paroxetine H* GI Upset diarrhea Zoloft [Sertraline] GI Upset Current Medications Current Outpatient Medications on File Prior to Visit Medication Sig predniSONE (DELTASONE) 10 mg tablet Take 6 tabs by mouth for 3 days then 4 tabs a day for 3 days then 2 tabs a day for 3 days and then 1 tab a day for 3 days. sildenafil (VIAGRA) 100 mg tablet Take 1 tablet by mouth once daily as needed. Take 30-60 minutes before sexual activity. rosuvastatin (CRESTOR) 10 mg tablet Take 1 tablet by mouth daily at bedtime. amLODIPine (NORVASC) 10 mg tablet Take 1 tablet by mouth once daily. lisinopril (ZESTRIL) 40 mg tablet Take 1 tablet by mouth once daily. spironolactone (ALDACTONE) 50 mg tablet Take 1 tablet by mouth once daily. gabapentin (NEURONTIN) 300 mg capsule Take 1 capsule by mouth three times a day for 30 days. methocarbamol (ROBAXIN) 750 mg tablet 1 tablet by ORAL/FEEDING TUBE route every 8 hours as needed (muscle spasms). No current facility-administered medications on file prior to visit. Social History Social History Tobacco Use Smoking status: Former Current packs/day: 0.00 Average packs/day: 0.5 packs/day for 21.0 years (10.5 ttl pk-yrs) Types: Cigarettes Start date: 01/13/2003 Quit date: 01/14/2024 Years since quittin.8 Smokeless tobacco: Never Vaping Use Vaping status: Never Used Substance Use Topics Alcohol use: Yes Alcohol/week: 12.0 standard drinks of alcohol Types: 12 Cans of Beer (12oz) per week Comment: x 1 day ago, 2 cocktails and beer Drug use: Never Review of Symptoms REVIEW OF SYSTEMS GENERAL: No unintentional weight loss, malaise or fevers NECK: Negative for lumps, goiter, pain and significant neck swelling RESPIRATORY: Negative for cough, hemoptysis, wheezing, COPD, dyspnea or shortness of breath CARDIOVASCULAR: Negative for chest pain, leg swelling, hypertension, CHF or palpitations GI: No nausea, vomiting, or diarrhea and No heartburn or reflux symptoms ENDOCRINE: Negative for cold or heat intolerance, polyuria, polydipsia and goiter NEURO: No history of headaches, syncope, paralysis, seizures or tremors. No dizziness with position changes. EXAM: BP 90/64 Pulse 90 Ht 176.5 cm (5' 9.5) Wt 117.5 kg (259 lb) SpO2 96% BMI 37.70 kg/m Last 5 Encounter Wt Readings: Date: Wt: 11/02/2024 117.5 kg (259 lb) 09/20/2024 121.6 kg (268 lb) 07/17/2024 122.9 kg (270 lb 15.1 oz) 04/20/2024 134.3 kg (296 lb) 04/20/2024 127 kg (280 lb) BMI Readings from Last 5 Encounters: 11/02/24 : 37.70 kg/m 09/20/24 : 39.01 kg/m 07/17/24 : 39.44 kg/m 04/20/24 : 43.08 kg/m 04/20/24 : 40.76 kg/m General Appearance: Well appearing, alert, in no acute distress, well-hydrated, well nourished.. Neck: Supple, no adenopathy; thyroid symmetric, normal size, no bruits. Lungs: Lungs clear to auscultation. No wheezing, rhonchi, rales.. Heart: RRR without murmur, gallop, or rubs. No ectopy. Abdomen: Normal abdominal exam, Abdomen soft, non-tender. Bowel sounds normal. No masses, organomegaly. Extremities: No deformities, edema, skin discoloration, Good capillary refill. . Peripheral Pulses: Normal. Health Maintenance List Depression Screening Never done Pneumococcal Vaccine: 50+(1 of 1 - PCV) Never done Influenza Vaccine(1) due on 04/30/2024 DTaP,Tdap,Td Vaccine(2 - Td or Tdap) due on 06/28/2024 Shingrix Vaccine(1 of 2) due on 02/20/2025 BP Controlled (<130/80) due on 02/20/2025 Serum Creatinine due on 04/20/2025 Annual PCP Team Chronic Disease Visit due on 09/20/2025 Diabetes Screening due on 04/20/2027 Colorectal Cancer Screening due on 02/04/2028 Lipid Screening due on 02/20/2029 Hepatitis C Screening Completed HIV Screening Completed Hepatitis B Vaccine Discontinued Covid-19 Vaccine Discontinued Data reviewed A/P ASSESSMENT/PLAN: 1. Hypertension, essential - ICD9: 401.9, ICD10: I10 (primary diagnosis) - Controlled - Continue current medications - Recommend home blood pressure monitoring, to bring results to next visit - Encouraged sodium restriction, DASH or Mediterranean diet - Recommend regular aerobic exercise - patient is on the low end. Discussed stopping his Norvasc and he wants to stay on it for now. He was advised if he starts getting dizziness to stop it and monitor his BP and then update me. 2. Mixed hyperlipidemia - ICD9: 272.2, ICD10: E78.2 - Control undetermined, due for labs - Counseled on healthy diet and regular exercise - Discussed need for and benefit of weight loss. BMI 37.70 kg/(m^2) 3. Elevated hemoglobin A1c - ICD9: 790.29, ICD10: R73.09 - will await labs. - patient hs made life style changes that has allowed his to loose almost 40 lbs 4. Situational anxiety - ICD9: 300.09, ICD10: F41.8 - stable not needing meds. 5. Morbid obesity (HCC) - ICD9: 278.01, ICD10: E66.01 Weight decreasing. Down almost 40 lbs - Behavioral intervention now class 2 obesity 6. Metabolic dysfunction-associated steatohepatitis (MASH) - ICD9: 571.8, ICD10: K75.81 - patient working on weight loss. 7. Smoker - ICD9: 305.1, ICD10: F17.200 - Cessation encouraged. - Counseling was given focusing on the harmful effects of this addiction especially given the patient's medical condition(s) which will be worsened because of the chemicals in tobacco. 8. Need for vaccination - ICD9: V05.9, ICD10: Z23 - TDAP VACCINE, AGE 7+ YR (ADACEL, BOOSTRIX) 9. Obesity, Class II, BMI 35-39.9 - ICD9: 278.00, ICD10: E66.812 - as per #5 - patient to continue his diet and exercise program F/u 6 months extensive check CMP, Lipid, UA, A1c, PSA prior. Colton Rosario MD documented in this encounter [facility] 11-02-2024 Note HNO ID: [id number] Author: COLTON ROSARIO MD Service: ? Author Type: Physician Type: Progress Notes Filed: 11/02/2024 20:19 Note Text: Chief Complaint Patient presents with: Follow Up HPI Jason Merritt Oscar is a 53 year old male who presents here today for routine f/u PMHx: HTN, high cholesterol, impaired fasting glucose, obesity, tobacco use and alcohol use. At last appt patient was placed on prednisone and referred to PHYSICAL THERAPY for left shoulder pain. Patient started doing a HEP program his son gave him who is in PHYSICAL THERAPY school. This has helped and slowly continues to improve. The steroid burst was also helpful. Currently pleased with progression and want to continue with the HEP Patient otherwise has been doing well. Past medical history, appointments, medications, allergies reviewed. Previous Medical History PAST MEDICAL HISTORY Diagnosis Date Abnormal echocardiogram 02/16/2024 Alcohol use 07/10/2016 3-5 day Back pain Cervical radiculopathy 12/16/2020 DDD (degenerative disc disease), lumbar 05/17/2023 ED (erectile dysfunction) of organic origin 11/05/2022 Elevated hemoglobin A1c 02/21/2024 Family history of colon cancer 09/28/2014 Fatty liver 03/28/2016 Former smoker 02/16/2024 H/O cervical spine surgery 06/17/2021 Heart rate fast on BB Hypercalcemia 02/23/2024 Possibly HCTZ related Hypertension Hypertension, essential 06/28/2014 LVH (left ventricular hypertrophy) 11/05/2022 With grade 1 Solomon dysfunction. Metabolic dysfunction-associated steatohepatitis (MASH) 03/28/2016 Mixed hyperlipidemia 06/28/2014 Morbid obesity (HCC) 02/16/2024 Obesity, Class II, BMI 35-39.9 12/16/2020 JOSELITO (obstructive sleep apnea) resolved with weight loss Spinal stenosis in cervical region Spinal stenosis of cervical region 03/26/2021 Tachycardia, unspecified on BB Previous Surgical History PAST SURGICAL HISTORY Procedure Laterality Date ALLOGRAFT FOR SPINE SURGERY ONLY STRUCTURAL 08/30/2011 FUSION AND REPLACED DISC lumbar ANTERIOR INSTRUMENTATION 2-3 VERTEBRAL SEGMENTS APPL-INTERVERTEBRAL BIOMECHANICAL DEVICES COLONOSCOPY FLX DX W/COLLJ SPEC WHEN PFRMD 09/28/2014 Colonoscopy, repeat 5 yrs PAST SURGICAL HISTORY OF back injections and disc biopsy PAST SURGICAL HISTORY OF 06/17/2021 C5-C6, C6-C7 anterior cervical discectomy and fusion, Insertion of intervertebral interbody device at C5-C6, C6-C7, anterior spinal instrumentation C5-C7, Use of structural allograft Family History FAMILY HISTORY Problem Relation Age of Onset Colon Cancer Father 50 Diabetes Father Hypertension Father Prostate Cancer Father 54 Colon Cancer Paternal Grandfather Diabetes Paternal Grandfather Prostate Cancer Paternal Grandfather 50'S Hypertension Paternal Grandmother Coronary Artery Disease Maternal Aunt Hypertension Maternal Aunt Hypertension Maternal Aunt Diabetes Paternal Aunt Hypertension Paternal Aunt Colon Cancer Paternal Uncle LATE 50'S Diabetes Paternal Uncle Hypertension Paternal Uncle Prostate Cancer Paternal Uncle 50'S Anesthesia Problems No Family History Patient Allergies ALLERGIES Allergen Reactions Ativan [Lorazepam] GI Upset Hctz [Thiazides] Other: See Comments hypercalcemia Paxil [Paroxetine H* GI Upset diarrhea Zoloft [Sertraline] GI Upset Current Medications Current Outpatient Medications on File Prior to Visit Medication Sig predniSONE (DELTASONE) 10 mg tablet Take 6 tabs by mouth for 3 days then 4 tabs a day for 3 days then 2 tabs a day for 3 days and then 1 tab a day for 3 days. sildenafil (VIAGRA) 100 mg tablet Take 1 tablet by mouth once daily as needed. Take 30-60 minutes before sexual activity. rosuvastatin (CRESTOR) 10 mg tablet Take 1 tablet by mouth daily at bedtime. amLODIPine (NORVASC) 10 mg tablet Take 1 tablet by mouth once daily. lisinopril (ZESTRIL) 40 mg tablet Take 1 tablet by mouth once daily. spironolactone (ALDACTONE) 50 mg tablet Take 1 tablet by mouth once daily. gabapentin (NEURONTIN) 300 mg capsule Take 1 capsule by mouth three times a day for 30 days. methocarbamol (ROBAXIN) 750 mg tablet 1 tablet by ORAL/FEEDING TUBE route every 8 hours as needed (muscle spasms). No current facility-administered medications on file prior to visit. Social History Social History Tobacco Use Smoking status: Former Current packs/day: 0.00 Average packs/day: 0.5 packs/day for 21.0 years (10.5 ttl pk-yrs) Types: Cigarettes Start date: 01/13/2003 Quit date: 01/14/2024 Years since quittin.8 Smokeless tobacco: Never Vaping Use Vaping status: Never Used Substance Use Topics Alcohol use: Yes Alcohol/week: 12.0 standard drinks of alcohol Types: 12 Cans of Beer (12oz) per week Comment: x 1 day ago, 2 cocktails and beer Drug use: Never Review of Symptoms REVIEW OF SYSTEMS GENERAL: No unintentional weight loss, malaise or fevers NECK: Nega (more content not included)... [facility] 09-20-2024 History of Presen t illness Narrative Chief Complaint Patient presents with: Pain: Left shoulder pain HPI Jason Moore is a 53 year old male who presents here today for 6 month follow up PMHx: HTN, high cholesterol, impaired fasting glucose, obesity, tobacco use and alcohol use. Patient has been having left shoulder; stomach swelling. Pain has been 0-1 and up to 5/10 at it's worse. The pain starts in the front of his left shoulder and then crainal nerves be in the upper back (pointing to the supraspinatus area). Certain movent will make it hurt more but not with lifting tings. No arm weakness or numbness. Picu Nurse strength seems ok but if he cardroom plastic card grader something he can feel the discomfort. No pain with laying on it and wont wake him up at night. Has taken ibuprofen, and a bio freeze like roll on. This helps ease up the pain but it has not resolved. Has a bulge from his abdomen when he sits up. Not sure what it is and doesn't hurt. Procedure: ARTHRODESIS CERVICAL POSTERIOR, BELOW C2 1ST SINGLE LEVEL with Surgeon Dr. Pelon Greenfield on 03/03/2024 Past medical history, appointments, medications, allergies reviewed. Previous Medical History PAST MEDICAL HISTORY Diagnosis Date Abnormal echocardiogram 02/16/2024 Alcohol use 07/10/2016 3-5 day Back pain Cervical radiculopathy 12/16/2020 DDD (degenerative disc disease), lumbar 05/17/2023 ED (erectile dysfunction) of organic origin 11/05/2022 Elevated hemoglobin A1c 02/21/2024 Family history of colon cancer 09/28/2014 Fatty liver 03/28/2016 Former smoker 02/16/2024 H/O cervical spine surgery 06/17/2021 Heart rate fast on BB Hypercalcemia 02/23/2024 Possibly HCTZ related Hypertension Hypertension, essential 06/28/2014 LVH (left ventricular hypertrophy) 11/05/2022 With grade 1 Solomon dysfunction. Metabolic dysfunction-associated steatohepatitis (MASH) 03/28/2016 Mixed hyperlipidemia 06/28/2014 Morbid obesity (HCC) 02/16/2024 Obesity, Class II, BMI 35-39.9 12/16/2020 JOSELITO (obstructive sleep apnea) resolved with weight loss Spinal stenosis in cervical region Spinal stenosis of cervical region 03/26/2021 Tachycardia, unspecified on BB Previous Surgical History PAST SURGICAL HISTORY Procedure Laterality Date ALLOGRAFT FOR SPINE SURGERY ONLY STRUCTURAL 08/30/2011 FUSION AND REPLACED DISC lumbar ANTERIOR INSTRUMENTATION 2-3 VERTEBRAL SEGMENTS APPL-INTERVERTEBRAL BIOMECHANICAL DEVICES COLONOSCOPY FLX DX W/COLLJ SPEC WHEN PFRMD 09/28/2014 Colonoscopy, repeat 5 yrs PAST SURGICAL HISTORY OF back injections and disc biopsy PAST SURGICAL HISTORY OF 06/17/2021 C5-C6, C6-C7 anterior cervical discectomy and fusion, Insertion of intervertebral interbody device at C5-C6, C6-C7, anterior spinal instrumentation C5-C7, Use of structural allograft Family History FAMILY HISTORY Problem Relation Age of Onset Colon Cancer Father 50 Diabetes Father Hypertension Father Prostate Cancer Father 54 Colon Cancer Paternal Grandfather Diabetes Paternal Grandfather Prostate Cancer Paternal Grandfather 50'S Hypertension Paternal Grandmother Coronary Artery Disease Maternal Aunt Hypertension Maternal Aunt Hypertension Maternal Aunt Diabetes Paternal Aunt Hypertension Paternal Aunt Colon Cancer Paternal Uncle LATE 50'S Diabetes Paternal Uncle Hypertension Paternal Uncle Prostate Cancer Paternal Uncle 50'S Anesthesia Problems No Family History Patient Allergies ALLERGIES Allergen Reactions Ativan [Lorazepam] GI Upset Hctz [Thiazides] Other: See Comments hypercalcemia Paxil [Paroxetine H* GI Upset diarrhea Zoloft [Sertraline] GI Upset Current Medications Current Outpatient Medications on File Prior to Visit Medication Sig sildenafil (VIAGRA) 100 mg tablet Take 1 tablet by mouth once daily as needed. Take 30-60 minutes before sexual activity. rosuvastatin (CRESTOR) 10 mg tablet Take 1 tablet by mouth daily at bedtime. amLODIPine (NORVASC) 10 mg tablet Take 1 tablet by mouth once daily. lisinopril (ZESTRIL) 40 mg tablet Take 1 tablet by mouth once daily. spironolactone (ALDACTONE) 50 mg tablet Take 1 tablet by mouth once daily. gabapentin (NEURONTIN) 300 mg capsule Take 1 capsule by mouth three times a day for 30 days. methocarbamol (ROBAXIN) 750 mg tablet 1 tablet by ORAL/FEEDING TUBE route every 8 hours as needed (muscle spasms). No current facility-administered medications on file prior to visit. Social History Social History Tobacco Use Smoking status: Former Current packs/day: 0.00 Average packs/day: 0.5 packs/day for 21.0 years (10.5 ttl pk-yrs) Types: Cigarettes Start date: 01/13/2003 Quit date: 01/14/2024 Years since quittin.6 Smokeless tobacco: Never Vaping Use Vaping status: Never Used Substance Use Topics Alcohol use: Yes Alcohol/week: 12.0 standard drinks of alcohol Types: 12 Cans of Beer (12oz) per week Comment: x 1 day ago, 2 cocktails and beer Drug use: Never Review of Symptoms REVIEW OF SYSTEMS See HPI EXAM: BP 140/88 Pulse 92 Resp 18 Wt 121.6 kg (268 lb) BMI 39.01 kg/m Last 6 Encounter Wt Readings: Date: Wt: 09/20/2024 121.6 kg (268 lb) 07/17/2024 122.9 kg (270 lb 15.1 oz) 04/20/2024 134.3 kg (296 lb) 04/20/2024 127 kg (280 lb) 02/21/2024 127 kg (280 lb) 02/16/2024 126.7 kg (279 lb 4.8 oz) General Appearance: Well appearing, alert, in no acute distress, well-hydrated, well nourished.. Abdomen: Normal abdominal exam, Abdomen soft, non-tender. Bowel sounds normal. No masses, organomegaly, patient has a diastasis recti. Otherwise nl Musculoskeletal: Left shoulder: no pain to palpation of the supraspinatus or infraspinatus muscles. Mild pain to palpation of the spine of the scapula and the AC joint. There is tenderness to palpation of the tendon incertion of the short head of the biceps tendon. Hawken's and Near's testing were mildly positive. Empty can testing was neg. External rotation was neg. Passive range of motion was normal without pain or crepitous. No pain with forced extension of the biceps tendon. Health Maintenance List Depression Screening Never done Pneumococcal Vaccine: 50+(1 of 1 - PCV) Never done Influenza Vaccine(1) due on 04/30/2024 DTaP,Tdap,Td Vaccine(2 - Td or Tdap) due on 06/28/2024 Shingrix Vaccine(1 of 2) due on 02/20/2025 BP Controlled (<130/80) due on 02/20/2025 Annual PCP Team Chronic Disease Visit due on 04/20/2025 Serum Creatinine due on 04/20/2025 Diabetes Screening due on 04/20/2027 Colorectal Cancer Screening due on 02/04/2028 Lipid Screening due on 02/20/2029 Hepatitis C Screening Completed HIV Screening Completed Hepatitis B Vaccine Discontinued Covid-19 Vaccine Discontinued Data reviewed A/P ASSESSMENT/PLAN: 1. Diastasis recti - ICD9: 728.84, ICD10: M62.08 (primary diagnosis) - discussed the benign nature. 2. Acute pain of left shoulder - ICD9: 719.41, ICD10: M25.512 Check - XR SHOULDER GENERAL 3V OR MORE AP/TRUE AP/OTHER LEFT - CONSULT TO PHYSICAL THERAPY - place on steroid taper. 3. Left shoulder tendonitis - ICD9: 726.10, ICD10: M77.8 Check - XR SHOULDER GENERAL 3V OR MORE AP/TRUE AP/OTHER LEFT - CONSULT TO PHYSICAL THERAPY - placed on steroid taper. Requested Prescriptions Signed Prescriptions Disp Refills predniSONE (DELTASONE) 10 mg tablet 39 tablet 0 Sig: Take 6 tabs by mouth for 3 days then 4 tabs a day for 3 days then 2 tabs a day for 3 days and then 1 tab a day for 3 days. F/u 6 weeks routine and see how the shoulder is doing. Colton Rosario MD documented in this encounter [facility] 09-20-2024 Note HNO ID: [id number] Author: COLTON ROSARIO MD Service: ? Author Type: Physician Type: Progress Notes Filed: 09/20/2024 18:58 Note Text: Chief Complaint Patient presents with: Pain: Left shoulder pain HPI Jason Moore is a 53 year old male who presents here today for 6 month follow up PMHx: HTN, high cholesterol, impaired fasting glucose, obesity, tobacco use and alcohol use. Patient has been having left shoulder; stomach swelling. Pain has been 0-1 and up to 5/10 at it's worse. The pain starts in the front of his left shoulder and then crainal nerves be in the upper back (pointing to the supraspinatus area). Certain movent will make it hurt more but not with lifting tings. No arm weakness or numbness. Picu Nurse strength seems ok but if he cardroom plastic card grader something he can feel the discomfort. No pain with laying on it and wont wake him up at night. Has taken ibuprofen, and a bio freeze like roll on. This helps ease up the pain but it has not resolved. Has a bulge from his abdomen when he sits up. Not sure what it is and doesn't hurt. Procedure: ARTHRODESIS CERVICAL POSTERIOR, BELOW C2 1ST SINGLE LEVEL with Surgeon Dr. Pelon Greenfield on 03/03/2024 Past medical history, appointments, medications, allergies reviewed. Previous Medical History PAST MEDICAL HISTORY Diagnosis Date Abnormal echocardiogram 02/16/2024 Alcohol use 07/10/2016 3-5 day Back pain Cervical radiculopathy 12/16/2020 DDD (degenerative disc disease), lumbar 05/17/2023 ED (erectile dysfunction) of organic origin 11/05/2022 Elevated hemoglobin A1c 02/21/2024 Family history of colon cancer 09/28/2014 Fatty liver 03/28/2016 Former smoker 02/16/2024 H/O cervical spine surgery 06/17/2021 Heart rate fast on BB Hypercalcemia 02/23/2024 Possibly HCTZ related Hypertension Hypertension, essential 06/28/2014 LVH (left ventricular hypertrophy) 11/05/2022 With grade 1 Solomon dysfunction. Metabolic dysfunction-associated steatohepatitis (MASH) 03/28/2016 Mixed hyperlipidemia 06/28/2014 Morbid obesity (HCC) 02/16/2024 Obesity, Class II, BMI 35-39.9 12/16/2020 JOSELITO (obstructive sleep apnea) resolved with weight loss Spinal stenosis in cervical region Spinal stenosis of cervical region 03/26/2021 Tachycardia, unspecified on BB Previous Surgical History PAST SURGICAL HISTORY Procedure Laterality Date ALLOGRAFT FOR SPINE SURGERY ONLY STRUCTURAL 08/30/2011 FUSION AND REPLACED DISC lumbar ANTERIOR INSTRUMENTATION 2-3 VERTEBRAL SEGMENTS APPL-INTERVERTEBRAL BIOMECHANICAL DEVICES COLONOSCOPY FLX DX W/COLLJ SPEC WHEN PFRMD 09/28/2014 Colonoscopy, repeat 5 yrs PAST SURGICAL HISTORY OF back injections and disc biopsy PAST SURGICAL HISTORY OF 06/17/2021 C5-C6, C6-C7 anterior cervical discectomy and fusion, Insertion of intervertebral interbody device at C5-C6, C6-C7, anterior spinal instrumentation C5-C7, Use of structural allograft Family History FAMILY HISTORY Problem Relation Age of Onset Colon Cancer Father 50 Diabetes Father Hypertension Father Prostate Cancer Father 54 Colon Cancer Paternal Grandfather Diabetes Paternal Grandfather Prostate Cancer Paternal Grandfather 50'S Hypertension Paternal Grandmother Coronary Artery Disease Maternal Aunt Hypertension Maternal Aunt Hypertension Maternal Aunt Diabetes Paternal Aunt Hypertension Paternal Aunt Colon Cancer Paternal Uncle LATE 50'S Diabetes Paternal Uncle Hypertension Paternal Uncle Prostate Cancer Paternal Uncle 50'S Anesthesia Problems No Family History Patient Allergies ALLERGIES Allergen Reactions Ativan [Lorazepam] GI Upset Hctz [Thiazides] Other: See Comments hypercalcemia Paxil [Paroxetine H* GI Upset diarrhea Zoloft [Sertraline] GI Upset Current Medications Current Outpatient Medications on File Prior to Visit Medication Sig sildenafil (VIAGRA) 100 mg tablet Take 1 tablet by mouth once daily as needed. Take 30-60 minutes before sexual activity. rosuvastatin (CRESTOR) 10 mg tablet Take 1 tablet by mouth daily at bedtime. amLODIPine (NORVASC) 10 mg tablet Take 1 tablet by mouth once daily. lisinopril (ZESTRIL) 40 mg tablet Take 1 tablet by mouth once daily. spironolactone (ALDACTONE) 50 mg tablet Take 1 tablet by mouth once daily. gabapentin (NEURONTIN) 300 mg capsule Take 1 capsule by mouth three times a day for 30 days. methocarbamol (ROBAXIN) 750 mg tablet 1 tablet by ORAL/FEEDING TUBE route every 8 hours as needed (muscle spasms). No current facility-administered medications on file prior to visit. Social History Social History Tobacco Use Smoking status: Former Current packs/day: 0.00 Average packs/day: 0.5 packs/day for 21.0 years (10.5 ttl pk-yrs) Types: Cigarettes Start date: 01/13/2003 Quit date: 01/14/2024 Years since quittin.6 Smokeless tobacco: Never Vaping Use Vaping status: Never Used Substance Use Topics Alcohol use: Yes Alcohol/we (more content not included)... [facility] 09-19-2024 Telephone encounter Note Attempted to contact patient, would like to review symptoms with patients before re-starting gabapentin Left VM to return call to the office Leonel Longo PA-C Spine Surgery [facility] Work Phone: 09-19-2024 Miscellaneous Notes Attempted to contact patient, would like to review symptoms with patients before re-starting gabapentin Left VM to return call to the office Leonel Longo PA-C Spine Surgery Called and spoke with pt His last Gabapentin prescription ended Jun 2024. He was taking 1 capsule 3X/day. Pt states he stopped taking at that time because he didn't feel he needed it Pt is now request a refill of Gabapentin. He states he has intermittent, sharp pain that originates in between shoulder blades/trapezius, and radiates into bilateral shoulder blades. Denies any other pain or symptoms. Will discuss with Ferdinand Longo documented in this encounter [facility] 09-19-2024 Telephone encounter Note Called and spoke with pt His last Gabapentin prescription ended Jun 2024. He was taking 1 capsule 3X/day. Pt states he stopped taking at that time because he didn't feel he needed it Pt is now request a refill of Gabapentin. He states he has intermittent, sharp pain that originates in between shoulder blades/trapezius, and radiates into bilateral shoulder blades. Denies any other pain or symptoms. Will discuss with Ferdinand Longo [facility] 09-18-2024 Telephone encounter Note Prescription Refill Information The patient has been identified by name and date of : Yes Caregiver verified no other encounters exist for this prescription request: Yes Caregiver confirmed with patient/requestor that no other refills are due, in the near future, with this provider at this time: Yes The last office visit in the department: 04/20/24 Does the patient have a future office visit with this provider/department: Yes 09/20/24 Requested Prescriptions Pending Prescriptions Disp Refills spironolactone (ALDACTONE) 50 mg tablet 30 tablet 0 Sig: Take 1 tablet by mouth once daily. Kaylie Caraballo LPN September 18, 2024 8:05 AM [facility] 09-18-2024 Miscellaneous Notes Prescription Refill Information The patient has been identified by name and date of : Yes Caregiver verified no other encounters exist for this prescription request: Yes Caregiver confirmed with patient/requestor that no other refills are due, in the near future, with this provider at this time: Yes The last office visit in the department: 04/20/24 Does the patient have a future office visit with this provider/department: Yes 09/20/24 Requested Prescriptions Pending Prescriptions Disp Refills spironolactone (ALDACTONE) 50 mg tablet 30 tablet 0 Sig: Take 1 tablet by mouth once daily. Kaylie Caraballo LPN September 18, 2024 8:05 AM documented in this encounter [facility] 09-18-2024 Telephone encounter Note Prescription Refill Information The patient has been identified by name and date of : Yes Caregiver verified no other encounters exist for this prescription request: Yes Caregiver confirmed with patient/requestor that no other refills are due, in the near future, with this provider at this time: Yes The last office visit in the department: 04/20/24 Does the patient have a future office visit with this provider/department: Yes 09/20/24 Requested Prescriptions Pending Prescriptions Disp Refills amLODIPine (NORVASC) 10 mg tablet 90 tablet 1 Sig: Take 1 tablet by mouth once daily. lisinopril (ZESTRIL) 40 mg tablet 90 tablet 1 Sig: Take 1 tablet by mouth once daily. Kaylie Caraballo LPN September 18, 2024 8:04 AM [facility] 09-18-2024 Miscellaneous Notes Prescription Refill Information The patient has been identified by name and date of : Yes Caregiver verified no other encounters exist for this prescription request: Yes Caregiver confirmed with patient/requestor that no other refills are due, in the near future, with this provider at this time: Yes The last office visit in the department: 04/20/24 Does the patient have a future office visit with this provider/department: Yes 09/20/24 Requested Prescriptions Pending Prescriptions Disp Refills amLODIPine (NORVASC) 10 mg tablet 90 tablet 1 Sig: Take 1 tablet by mouth once daily. lisinopril (ZESTRIL) 40 mg tablet 90 tablet 1 Sig: Take 1 tablet by mouth once daily. Kaylie Caraballo LPN September 18, 2024 8:04 AM documented in this encounter [facility] 09-18-2024 Telephone encounter Note Prescription Refill Information The patient has been identified by name and date of : Yes Caregiver verified no other encounters exist for this prescription request: Yes Caregiver confirmed with patient/requestor that no other refills are due, in the near future, with this provider at this time: Yes The last office visit in the department: 04/20/24 Does the patient have a future office visit with this provider/department: Yes Requested Prescriptions Pending Prescriptions Disp Refills sildenafil (VIAGRA) 100 mg tablet 30 tablet 3 Sig: Take 1 tablet by mouth once daily as needed. Take 30-60 minutes before sexual activity. rosuvastatin (CRESTOR) 10 mg tablet 30 tablet 5 Sig: Take 1 tablet by mouth daily at bedtime. Hien Rothman LPN September 18, 2024 7:57 AM [facility] 09-18-2024 Miscellaneous Notes Prescription Refill Information The patient has been identified by name and date of : Yes Caregiver verified no other encounters exist for this prescription request: Yes Caregiver confirmed with patient/requestor that no other refills are due, in the near future, with this provider at this time: Yes The last office visit in the department: 04/20/24 Does the patient have a future office visit with this provider/department: Yes Requested Prescriptions Pending Prescriptions Disp Refills sildenafil (VIAGRA) 100 mg tablet 30 tablet 3 Sig: Take 1 tablet by mouth once daily as needed. Take 30-60 minutes before sexual activity. rosuvastatin (CRESTOR) 10 mg tablet 30 tablet 5 Sig: Take 1 tablet by mouth daily at bedtime. Hien Rothman LPN September 18, 2024 7:57 AM documented in this encounter [facility] 07-17-2024 History of Presen t illness Narrative Radiology Service Progress Note PATIENT NAME: Jason Moore DATE OF SERVICE: July 17, 2024 TIME: 9:30 AM PATIENT IDENTITY VERIFICATION COMPLETED USING TWO (2) IDENTIFIERS: Name and Date of confirmed by patient verbally. FALL SCREENING: Has the patient had 2 falls in the last year or 1 fall with injury or currently using an Ambulatory Assistive Device (Walker, Cane, Wheelchair, Crutches, etc.)? No PATIENT GENDER DATA: Male PATIENT RELEVANT IMPLANT DATA REVIEWED: Yes PATIENT PRESENTS WITH AN IMPLANTABLE OR ATTACHED FABRICATION MIG WELDER: No RADIOLOGY DEPARTMENT: General X-ray: Exam(s) Completed: Chest X-Ray PERIPHERAL IV DATA: Not applicable SIGNED BY: JOSEFINA Damico) July 17, 2024 9:30 AM documented in this encounter [facility] 07-17-2024 Note HNO ID: [id number] Author: RUTH ANN ESTEVEZ RT(R) Service: ? Author Type: Coiled Tubing Supervisor Type: Progress Notes Filed: 07/17/2024 09:35 Note Text: Radiology Service Progress Note PATIENT NAME: Jason Moore DATE OF SERVICE: July 17, 2024 TIME: 9:30 AM PATIENT IDENTITY VERIFICATION COMPLETED USING TWO (2) IDENTIFIERS: Name and Date of confirmed by patient verbally. FALL SCREENING: Has the patient had 2 falls in the last year or 1 fall with injury or currently using an Ambulatory Assistive Device (Walker, Cane, Wheelchair, Crutches, etc.)? No PATIENT GENDER DATA: Male PATIENT RELEVANT IMPLANT DATA REVIEWED: Yes PATIENT PRESENTS WITH AN IMPLANTABLE OR ATTACHED FABRICATION MIG WELDER: No RADIOLOGY DEPARTMENT: General X-ray: Exam(s) Completed: Chest X-Ray PERIPHERAL IV DATA: Not applicable SIGNED BY: RT Mookie(R) July 17, 2024 9:30 AM [facility] 07-17-2024 Note HNO ID: [id number] Author: TARIK ZHENG APRN.SONOGRAPHY TECHNICIAN Service: ? Author Type: Nurse Practitioner Type: Progress Notes Filed: 07/17/2024 09:46 Note Text: CC: Patient presents with: Chest Congestion: cough and sore throat x 2 weeks HPI: Jason Moore is a 53 year old male who presents to the office with complaint of chest congestion, cough, nonproductive, and sore throat for 2 weeks. Symptoms are staying the same. Associated symptoms includes wheezing and dyspnea. Denies nausea, vomiting , and diarrhea. Treatments tried include nothing so far. with no relief of symptoms. Sick contacts: unknown. History of asthma, frequent episodes of bronchitis, chronic bronchitis, bronchiectasis or COPD: No Smoker: No Seasonal/environmental allergies: No The ROS is otherwise negative. The patient's pmh, medications, allergies, and past visits are reviewed. PHYSICAL EXAM: BP 168/102 Pulse 88 Temp 37.3 ?C (99.1 ?F) Resp 18 Wt 122.9 kg (270 lb 15.1 oz) SpO2 95% BMI 39.44 kg/m? General appearance: alert, cooperative, pleasant, in no acute distress Head: Normocephalic Eyes: EOM's intact, conjunctiva pink and moist, no icterus, sclera white, non-injected Ears: Right ear: External ear/canal- Normal, TM - clear with good landmarks. Left ear: External ear/canal- Normal, TM - clear with good landmarks Oropharynx:mild erythema, without exudates present Heart: Negative. RRR without obvious murmur, gallop, or rubs. No ectopy. Lungs: moderate wheezing diffusely PAST MEDICAL HISTORY Diagnosis Date Abnormal echocardiogram 02/16/2024 Alcohol use 07/10/2016 3-5 day Back pain Cervical radiculopathy 12/16/2020 DDD (degenerative disc disease), lumbar 05/17/2023 ED (erectile dysfunction) of organic origin 11/05/2022 Elevated hemoglobin A1c 02/21/2024 Family history of colon cancer 09/28/2014 Fatty liver 03/28/2016 Former smoker 02/16/2024 H/O cervical spine surgery 06/17/2021 Heart rate fast on BB Hypercalcemia 02/23/2024 Possibly HCTZ related Hypertension Hypertension, essential 06/28/2014 LVH (left ventricular hypertrophy) 11/05/2022 With grade 1 Solomon dysfunction. Metabolic dysfunction-associated steatohepatitis (MASH) 03/28/2016 Mixed hyperlipidemia 06/28/2014 Morbid obesity (HCC) 02/16/2024 Obesity, Class II, BMI 35-39.9 12/16/2020 JOSELITO (obstructive sleep apnea) resolved with weight loss Spinal stenosis in cervical region Spinal stenosis of cervical region 03/26/2021 Tachycardia, unspecified on BB PAST SURGICAL HISTORY Procedure Laterality Date ALLOGRAFT FOR SPINE SURGERY ONLY STRUCTURAL 08/30/2011 FUSION AND REPLACED DISC lumbar ANTERIOR INSTRUMENTATION 2-3 VERTEBRAL SEGMENTS APPL-INTERVERTEBRAL BIOMECHANICAL DEVICES COLONOSCOPY FLX DX W/COLLJ SPEC WHEN PFRMD 09/28/2014 Colonoscopy, repeat 5 yrs PAST SURGICAL HISTORY OF back injections and disc biopsy PAST SURGICAL HISTORY OF 06/17/2021 C5-C6, C6-C7 anterior cervical discectomy and fusion, Insertion of intervertebral interbody device at C5-C6, C6-C7, anterior spinal instrumentation C5-C7, Use of structural allograft ALLERGIES Ativan [Lorazepam], Hctz [Thiazides], Paxil [Paroxetine Hcl], and Zoloft [Sertraline] MEDICATIONS gabapentin (NEURONTIN) 300 mg capsule Take 1 capsule by mouth three times a day for 30 days. spironolactone (ALDACTONE) 50 mg tablet Take 1 tablet by mouth once daily. methocarbamol (ROBAXIN) 750 mg tablet 1 tablet by ORAL/FEEDING TUBE route every 8 hours as needed (muscle spasms). rosuvastatin (CRESTOR) 10 mg tablet Take 1 tablet by mouth daily at bedtime. sildenafil (VIAGRA) 100 mg tablet Take 1 tablet by mouth once daily as needed. Take 30-60 minutes before sexual activity. amLODIPine (NORVASC) 10 mg tablet Take 1 tablet by mouth once daily. lisinopril (ZESTRIL) 40 mg tablet Take 1 tablet by mouth once daily. FAMILY HISTORY Problem Relation Age of Onset Colon Cancer Father 50 Diabetes Father Hypertension Father Prostate Cancer Father 54 Colon Cancer Paternal Grandfather Diabetes Paternal Grandfather Prostate Cancer Paternal Grandfather 50'S Hypertension Paternal Grandmother Coronary Artery Disease Maternal Aunt Hypertension Maternal Aunt Hypertension Maternal Aunt Diabetes Paternal Aunt Hypertension Paternal Aunt Colon Cancer Paternal Uncle LATE 50'S Diabetes Paternal Uncle Hypertension Paternal Uncle Prostate Cancer Paternal Uncle 50'S Anesthesia Problems No Family History Social History Tobacco Use Smoking status: Former Current packs/day: 0.00 Average packs/day: 0.5 packs/day for 21.0 years (10.5 ttl pk-yrs) Types: Cigarettes Start date: 01/13/2003 Quit date: 01/14/2024 Years since quittin.5 Smokeless tobacco: Never Vaping Use Vaping status: Never Used Substance Use Topics Alcohol use: Yes Alcohol/week: 12.0 standard drinks of alcohol Types: 12 Cans of Beer (12oz) per week Comment: (more content not included)... [facility] 07-17-2024 History of Presen t illness Narrative CC: Patient presents with: Chest Congestion: cough and sore throat x 2 weeks HPI: Jason Moore is a 53 year old male who presents to the office with complaint of chest congestion, cough, nonproductive, and sore throat for 2 weeks. Symptoms are staying the same. Associated symptoms includes wheezing and dyspnea. Denies nausea, vomiting , and diarrhea. Treatments tried include nothing so far. with no relief of symptoms. Sick contacts: unknown. History of asthma, frequent episodes of bronchitis, chronic bronchitis, bronchiectasis or COPD: No Smoker: No Seasonal/environmental allergies: No The ROS is otherwise negative. The patient's pmh, medications, allergies, and past visits are reviewed. PHYSICAL EXAM: BP 168/102 Pulse 88 Temp 37.3 C (99.1 F) Resp 18 Wt 122.9 kg (270 lb 15.1 oz) SpO2 95% BMI 39.44 kg/m General appearance: alert, cooperative, pleasant, in no acute distress Head: Normocephalic Eyes: EOM's intact, conjunctiva pink and moist, no icterus, sclera white, non-injected Ears: Right ear: External ear/canal- Normal, TM - clear with good landmarks. Left ear: External ear/canal- Normal, TM - clear with good landmarks Oropharynx:mild erythema, without exudates present Heart: Negative. RRR without obvious murmur, gallop, or rubs. No ectopy. Lungs: moderate wheezing diffusely PAST MEDICAL HISTORY Diagnosis Date Abnormal echocardiogram 02/16/2024 Alcohol use 07/10/2016 3-5 day Back pain Cervical radiculopathy 12/16/2020 DDD (degenerative disc disease), lumbar 05/17/2023 ED (erectile dysfunction) of organic origin 11/05/2022 Elevated hemoglobin A1c 02/21/2024 Family history of colon cancer 09/28/2014 Fatty liver 03/28/2016 Former smoker 02/16/2024 H/O cervical spine surgery 06/17/2021 Heart rate fast on BB Hypercalcemia 02/23/2024 Possibly HCTZ related Hypertension Hypertension, essential 06/28/2014 LVH (left ventricular hypertrophy) 11/05/2022 With grade 1 Solomon dysfunction. Metabolic dysfunction-associated steatohepatitis (MASH) 03/28/2016 Mixed hyperlipidemia 06/28/2014 Morbid obesity (HCC) 02/16/2024 Obesity, Class II, BMI 35-39.9 12/16/2020 JOSELITO (obstructive sleep apnea) resolved with weight loss Spinal stenosis in cervical region Spinal stenosis of cervical region 03/26/2021 Tachycardia, unspecified on BB PAST SURGICAL HISTORY Procedure Laterality Date ALLOGRAFT FOR SPINE SURGERY ONLY STRUCTURAL 08/30/2011 FUSION AND REPLACED DISC lumbar ANTERIOR INSTRUMENTATION 2-3 VERTEBRAL SEGMENTS APPL-INTERVERTEBRAL BIOMECHANICAL DEVICES COLONOSCOPY FLX DX W/COLLJ SPEC WHEN PFRMD 09/28/2014 Colonoscopy, repeat 5 yrs PAST SURGICAL HISTORY OF back injections and disc biopsy PAST SURGICAL HISTORY OF 06/17/2021 C5-C6, C6-C7 anterior cervical discectomy and fusion, Insertion of intervertebral interbody device at C5-C6, C6-C7, anterior spinal instrumentation C5-C7, Use of structural allograft ALLERGIES Ativan [Lorazepam], Hctz [Thiazides], Paxil [Paroxetine Hcl], and Zoloft [Sertraline] MEDICATIONS gabapentin (NEURONTIN) 300 mg capsule Take 1 capsule by mouth three times a day for 30 days. spironolactone (ALDACTONE) 50 mg tablet Take 1 tablet by mouth once daily. methocarbamol (ROBAXIN) 750 mg tablet 1 tablet by ORAL/FEEDING TUBE route every 8 hours as needed (muscle spasms). rosuvastatin (CRESTOR) 10 mg tablet Take 1 tablet by mouth daily at bedtime. sildenafil (VIAGRA) 100 mg tablet Take 1 tablet by mouth once daily as needed. Take 30-60 minutes before sexual activity. amLODIPine (NORVASC) 10 mg tablet Take 1 tablet by mouth once daily. lisinopril (ZESTRIL) 40 mg tablet Take 1 tablet by mouth once daily. FAMILY HISTORY Problem Relation Age of Onset Colon Cancer Father 50 Diabetes Father Hypertension Father Prostate Cancer Father 54 Colon Cancer Paternal Grandfather Diabetes Paternal Grandfather Prostate Cancer Paternal Grandfather 50'S Hypertension Paternal Grandmother Coronary Artery Disease Maternal Aunt Hypertension Maternal Aunt Hypertension Maternal Aunt Diabetes Paternal Aunt Hypertension Paternal Aunt Colon Cancer Paternal Uncle LATE 50'S Diabetes Paternal Uncle Hypertension Paternal Uncle Prostate Cancer Paternal Uncle 50'S Anesthesia Problems No Family History Social History Tobacco Use Smoking status: Former Current packs/day: 0.00 Average packs/day: 0.5 packs/day for 21.0 years (10.5 ttl pk-yrs) Types: Cigarettes Start date: 01/13/2003 Quit date: 01/14/2024 Years since quittin.5 Smokeless tobacco: Never Vaping Use Vaping status: Never Used Substance Use Topics Alcohol use: Yes Alcohol/week: 12.0 standard drinks of alcohol Types: 12 Cans of Beer (12oz) per week Comment: x 1 day ago, 2 cocktails and beer Drug use: Never ASSESSMENT/PLAN: 1. Acute cough - ICD9: 786.2, ICD10: R05.1 (primary diagnosis) - XR CHEST 2V FRONTAL/LAT * * * * Physician Interpretation * * * * EXAMINATION: CHEST RADIOGRAPH (2 VIEW FRONTAL & LATERAL) CLINICAL HISTORY: Acute cough MQ: [id number] EXAM DATE/TIME: 07/17/2024 9:36 AM COMPARISON: Chest x-ray 04/20/2024 RESULT: Lines, tubes, and devices: None. Lungs and pleura: No consolidation. No lung mass. No pleural effusion. No pneumothorax. Cardiomediastinal silhouette: Normal cardiomediastinal silhouette. Bones and soft tissues: Unremarkable. IMPRESSION IMPRESSION: No acute radiographic abnormality. Parachute Manufacturing Supervisor: LAURENT Transcribe Date/Time: Jul 17 2024 9:38A Dictated by : PAVEL SCOTT MD 2. Sore throat - ICD9: 462, ICD10: J02.9 - STREP A MOLECULAR (POC)-pos 3. Strep throat - ICD9: 034.0, ICD10: J02.0 - AMOXICILLIN 500 MG CAPSULE Prescription instructions reviewed with patient as applicable. Potential red flag symptoms discussed with the patient. Reviewed appropriate action plan to take if red flag symptoms occur. Patient agreeable to treatment plan. Tarik Zheng APRN.SONOGRAPHY TECHNICIAN documented in this encounter [facility] 06-22-2024 Telephone encounter Note Neuro SPINE CARE COORDINATION QUICK NOTE Returned call to patient with no answer. Left message on identified VM. Informed patient that gabapentin was sent to pharmacy. Requested call back to office for update on symptoms. [facility] 06-22-2024 Miscellaneous Notes Neuro SPINE CARE COORDINATION QUICK NOTE Returned call to patient with no answer. Left message on identified VM. Informed patient that gabapentin was sent to pharmacy. Requested call back to office for update on symptoms. Pt returned call. Please call back. [phone] Contacted patient to discuss issues with stopping gabapentin, advised to contact our office to discuss symptoms and re-starting gabapentin. Refill sent to pharmacy as requested by patient Patient's request for medication is as follows: Requested Prescriptions Pending Prescriptions Disp Refills gabapentin (NEURONTIN) 300 mg capsule 90 capsule 0 Sig: Take 1 capsule by mouth three times a day for 30 days. Leonel Longo PA-C Spine Surgery Called and left a detailed voicemail notifying patient of providers message that medication should be addressed by [facility]. I let hi know that the message had been sent to his spine surgery team that he is still working with. Clinic phone number was left in case patient had any questions. Mainor Maldonado RN This should be addressed by [facility]. Will forward. Pt states he was weaning himself off the medication and he thinks he weaned himself off too early. He states Dr Rosario and his surgeon told him not to get off too early. Pt states he has been off for a month, and he isn't ok any more. Pt reports the nerve pain is a 4/10 tingling and the muscle pain is a 5/10 pulsating/jumping. Pt states if provider needs to see him that is fine. Pt asks that provider call and leave hi a VM or ToutApphart message to let him know if he called in medication, or if he needs an appointment. The patient has been identified by name and date of : Yes Caregiver verified no other encounters exist for this prescription request: Yes Caregiver confirmed with patient/requestor that no other refills are due, in the near future, with this provider at this time: Yes The last office visit in the department: 04/20/2024 Does the patient have a future office visit with this provider/department: Yes 08/14/2024 Requested Prescriptions Pending Prescriptions Disp Refills gabapentin (NEURONTIN) 300 mg capsule 90 capsule 0 Sig: Take 1 capsule by mouth three times a day for 30 days. Mainor Maldonado RN June 20, 2024 4:45 PM documented in this encounter [facility] 06-21-2024 Telephone encounter Note Pt returned call. Please call back. [phone] [facility] 06-21-2024 Telephone encounter Note Contacted patient to discuss issues with stopping gabapentin, advised to contact our office to discuss symptoms and re-starting gabapentin. Refill sent to pharmacy as requested by patient Patient's request for medication is as follows: Requested Prescriptions Pending Prescriptions Disp Refills gabapentin (NEURONTIN) 300 mg capsule 90 capsule 0 Sig: Take 1 capsule by mouth three times a day for 30 days. Leonel Longo PA-C Spine Surgery [facility] 06-21-2024 Telephone encounter Note Called and left a detailed voicemail notifying patient of providers message that medication should be addressed by [facility]. I let hi know that the message had been sent to his spine surgery team that he is still working with. Clinic phone number was left in case patient had any questions. Mainor Maldonado RN [facility] 06-21-2024 Telephone encounter Note This should be addressed by [facility]. Will forward. [facility] 06-20-2024 Telephone encounter Note Pt states he was weaning himself off the medication and he thinks he weaned himself off too early. He states Dr Rosario and his surgeon told him not to get off too early. Pt states he has been off for a month, and he isn't ok any more. Pt reports the nerve pain is a 4/10 tingling and the muscle pain is a 5/10 pulsating/jumping. Pt states if provider needs to see him that is fine. Pt asks that provider call and leave hi a VM or MyChart message to let him know if he called in medication, or if he needs an appointment. The patient has been identified by name and date of : Yes Caregiver verified no other encounters exist for this prescription request: Yes Caregiver confirmed with patient/requestor that no other refills are due, in the near future, with this provider at this time: Yes The last office visit in the department: 04/20/2024 Does the patient have a future office visit with this provider/department: Yes 08/14/2024 Requested Prescriptions Pending Prescriptions Disp Refills gabapentin (NEURONTIN) 300 mg capsule 90 capsule 0 Sig: Take 1 capsule by mouth three times a day for 30 days. Mainor Maldonado RN June 20, 2024 4:45 PM [facility] 04-25-2024 Telephone encounter Note Pt notified and verbalized understanding Jadon Martinez MA [facility] 04-25-2024 Miscellaneous Notes Pt notified and verbalized understanding Jadon Martinez MA Would encourage patient to continue to stay active as this seems to be helping the swelling. When sitting patient should have legs elevated. Supports socks can also be very helpful with swelling. Pt was given results & voiced understanding. Pt states the swelling is more in his ankles & feet now & not so much in his legs, denies any pain. States he has been back to work X 2 days & maybe up & moving around is help reduce the swelling. Pt is asking what his next step is? Christen Mendez LPN Left message for patient to return call to office Jadon Martinez MA Please let patient know his labs are stable. His potassium is slightly low at 3.6. I would encourage him to increase intake of potassium rich foods. documented in this encounter [facility] 04-25-2024 Telephone encounter Note Would encourage patient to continue to stay active as this seems to be helping the swelling. When sitting patient should have legs elevated. Supports socks can also be very helpful with swelling. [facility] 04-25-2024 Telephone encounter Note Pt was given results & voiced understanding. Pt states the swelling is more in his ankles & feet now & not so much in his legs, denies any pain. States he has been back to work X 2 days & maybe up & moving around is help reduce the swelling. Pt is asking what his next step is? Christen Mendez LPN [facility] 04-25-2024 Telephone encounter Note Left message for patient to return call to office Jadon Martinez MA [facility] 04-25-2024 Telephone encounter Note Please let patient know his labs are stable. His potassium is slightly low at 3.6. I would encourage him to increase intake of potassium rich foods. [facility] 04-20-2024 Telephone encounter Note Pt notified and verbalized understanding Jadon Martinez MA [facility] 04-20-2024 Miscellaneous Notes Pt notified and verbalized understanding Jadon Martinez MA Please let patient know their xray is normal. documented in this encounter [facility] 04-20-2024 Telephone encounter Note Please let patient know their xray is normal. [facility] 04-20-2024 History of Presen t illness Narrative Radiology Service Progress Note PATIENT NAME: Jason Moore DATE OF SERVICE: April 20, 2024 TIME: 2:26 PM PATIENT IDENTITY VERIFICATION COMPLETED USING TWO (2) IDENTIFIERS: Name and Date of confirmed by patient verbally. FALL SCREENING: Has the patient had 2 falls in the last year or 1 fall with injury or currently using an Ambulatory Assistive Device (Walker, Cane, Wheelchair, Crutches, etc.)? No PATIENT GENDER DATA: Male PATIENT RELEVANT IMPLANT DATA REVIEWED: Yes PATIENT PRESENTS WITH AN IMPLANTABLE OR ATTACHED FABRICATION MIG WELDER: No RADIOLOGY DEPARTMENT: General X-ray: Exam(s) Completed: Chest X-Ray PERIPHERAL IV DATA: Not applicable SIGNED BY: RT Mookie(Marita) April 20, 2024 2:26 PM documented in this encounter [facility] 04-20-2024 Note HNO ID: [id number] Author: RUTH ANN ESTEVEZ RT(Marita) Service: ? Author Type: Coiled Tubing Supervisor Type: Progress Notes Filed: 04/20/2024 14:34 Note Text: Radiology Service Progress Note PATIENT NAME: Jason Moore DATE OF SERVICE: April 20, 2024 TIME: 2:26 PM PATIENT IDENTITY VERIFICATION COMPLETED USING TWO (2) IDENTIFIERS: Name and Date of confirmed by patient verbally. FALL SCREENING: Has the patient had 2 falls in the last year or 1 fall with injury or currently using an Ambulatory Assistive Device (Walker, Cane, Wheelchair, Crutches, etc.)? No PATIENT GENDER DATA: Male PATIENT RELEVANT IMPLANT DATA REVIEWED: Yes PATIENT PRESENTS WITH AN IMPLANTABLE OR ATTACHED FABRICATION MIG WELDER: No RADIOLOGY DEPARTMENT: General X-ray: Exam(s) Completed: Chest X-Ray PERIPHERAL IV DATA: Not applicable SIGNED BY: RT Mookie(R) April 20, 2024 2:26 PM [facility] 04-20-2024 Note HNO ID: [id number] Author: ASHLEY PUGH APRN.SONOGRAPHY TECHNICIAN Service: ? Author Type: Nurse Practitioner Type: Progress Notes Filed: 04/20/2024 14:04 Note Text: Chief Complaint Patient presents with: Edema: Leg/ feet swelling X 1.5 weeks HPI Jason Moore is a 53 year old male who presents here today for Above Complaints.. Patient presents for leg swelling for a week and a half. Patient denies any changes to medications. Patient was started on spironolactone in January. Previously on HCTZ which caused hypercalcemia and was discontinued. Past medical history, appointments, medications, allergies reviewed. Previous Medical History PAST MEDICAL HISTORY 02/16/2024: Abnormal echocardiogram 07/10/2016: Alcohol use Comment: 3-5 day No date: Back pain 12/16/2020: Cervical radiculopathy 05/17/2023: DDD (degenerative disc disease), lumbar 11/05/2022: ED (erectile dysfunction) of organic origin 02/21/2024: Elevated hemoglobin A1c 09/28/2014: Family history of colon cancer 03/28/2016: Fatty liver 02/16/2024: Former smoker 06/17/2021: H/O cervical spine surgery No date: Heart rate fast Comment: on BB 02/23/2024: Hypercalcemia Comment: Possibly HCTZ related No date: Hypertension 06/28/2014: Hypertension, essential 11/05/2022: LVH (left ventricular hypertrophy) Comment: With grade 1 Solomon dysfunction. 03/28/2016: Metabolic dysfunction-associated steatohepatitis (MASH) 06/28/2014: Mixed hyperlipidemia 02/16/2024: Morbid obesity (HCC) 12/16/2020: Obesity, Class II, BMI 35-39.9 No date: JOSELITO (obstructive sleep apnea) Comment: resolved with weight loss No date: Spinal stenosis in cervical region 03/26/2021: Spinal stenosis of cervical region No date: Tachycardia, unspecified Comment: on BB Previous Surgical History PAST SURGICAL HISTORY 08/30/2011: ALLOGRAFT FOR SPINE SURGERY ONLY STRUCTURAL Comment: FUSION AND REPLACED DISC lumbar No date: ANTERIOR INSTRUMENTATION 2-3 VERTEBRAL SEGMENTS No date: APPL-INTERVERTEBRAL BIOMECHANICAL DEVICES 09/28/2014: COLONOSCOPY FLX DX W/COLLJ SPEC WHEN PFRMD Comment: Colonoscopy, repeat 5 yrs No date: PAST SURGICAL HISTORY OF Comment: back injections and disc biopsy 06/17/2021: PAST SURGICAL HISTORY OF Comment: C5-C6, C6-C7 anterior cervical discectomy and fusion, Insertion of intervertebral interbody device at C5-C6, C6-C7, anterior spinal instrumentation C5-C7, Use of structural allograft Family History FAMILY HISTORY Problem Relation Age of Onset Colon Cancer Father 50 Diabetes Father Hypertension Father Prostate Cancer Father 54 Colon Cancer Paternal Grandfather Diabetes Paternal Grandfather Prostate Cancer Paternal Grandfather 50'S Hypertension Paternal Grandmother Coronary Artery Disease Maternal Aunt Hypertension Maternal Aunt Hypertension Maternal Aunt Diabetes Paternal Aunt Hypertension Paternal Aunt Colon Cancer Paternal Uncle LATE 50'S Diabetes Paternal Uncle Hypertension Paternal Uncle Prostate Cancer Paternal Uncle 50'S Anesthesia Problems No Family History Patient Allergies ALLERGIES Allergen Reactions Ativan [Lorazepam] GI Upset Hctz [Thiazides] Other: See Comments hypercalcemia Paxil [Paroxetine H* GI Upset diarrhea Zoloft [Sertraline] GI Upset Current Medications Current Outpatient Medications on File Prior to Visit Medication Sig methocarbamol (ROBAXIN) 750 mg tablet 1 tablet by ORAL/FEEDING TUBE route every 8 hours as needed (muscle spasms). gabapentin (NEURONTIN) 300 mg capsule Take 1 capsule by mouth three times a day for 30 days. gabapentin (NEURONTIN) 300 mg capsule Take 1 capsule by mouth three times a day for 30 days. rosuvastatin (CRESTOR) 10 mg tablet Take 1 tablet by mouth daily at bedtime. spironolactone (ALDACTONE) 25 mg tablet Take 1 tablet by mouth once daily. sildenafil (VIAGRA) 100 mg tablet Take 1 tablet by mouth once daily as needed. Take 30-60 minutes before sexual activity. amLODIPine (NORVASC) 10 mg tablet Take 1 tablet by mouth once daily. lisinopril (ZESTRIL) 40 mg tablet Take 1 tablet by mouth once daily. No current facility-administered medications on file prior to visit. Social History Social History Tobacco Use Smoking status: Former Current packs/day: 0.00 Average packs/day: 0.5 packs/day for 21.0 years (10.5 ttl pk-yrs) Types: Cigarettes Start date: 01/13/2003 Quit date: 01/14/2024 Years since quittin.2 Smokeless tobacco: Never Vaping Use Vaping status: Never Used Substance Use Topics Alcohol use: Yes Alcohol/week: 12.0 standard drinks of alcohol Types: 12 Cans of Beer (12oz) per week Comment: x 1 day ago, 2 cocktails and beer Drug use: Never Review of Symptoms REVIEW OF SYSTEMS SEE HPI EXAM: BP 135/82 Pulse 102 Resp 16 Wt 134.3 kg (296 lb) BMI 43.08 kg/m? General Appearance: Well appearing, alert, in no acute distress, well-hydrated, well nourished.. Lungs: Lungs cl (more content not included)... [facility] 04-20-2024 History of Presen t illness Narrative Chief Complaint Patient presents with: Edema: Leg/ feet swelling X 1.5 weeks HPI Jason Moore is a 53 year old male who presents here today for Above Complaints.. Patient presents for leg swelling for a week and a half. Patient denies any changes to medications. Patient was started on spironolactone in January. Previously on HCTZ which caused hypercalcemia and was discontinued. Past medical history, appointments, medications, allergies reviewed. Previous Medical History PAST MEDICAL HISTORY 02/16/2024: Abnormal echocardiogram 07/10/2016: Alcohol use Comment: 3-5 day No date: Back pain 12/16/2020: Cervical radiculopathy 05/17/2023: DDD (degenerative disc disease), lumbar 11/05/2022: ED (erectile dysfunction) of organic origin 02/21/2024: Elevated hemoglobin A1c 09/28/2014: Family history of colon cancer 03/28/2016: Fatty liver 02/16/2024: Former smoker 06/17/2021: H/O cervical spine surgery No date: Heart rate fast Comment: on BB 02/23/2024: Hypercalcemia Comment: Possibly HCTZ related No date: Hypertension 06/28/2014: Hypertension, essential 11/05/2022: LVH (left ventricular hypertrophy) Comment: With grade 1 Solomon dysfunction. 03/28/2016: Metabolic dysfunction-associated steatohepatitis (MASH) 06/28/2014: Mixed hyperlipidemia 02/16/2024: Morbid obesity (HCC) 12/16/2020: Obesity, Class II, BMI 35-39.9 No date: JOSELITO (obstructive sleep apnea) Comment: resolved with weight loss No date: Spinal stenosis in cervical region 03/26/2021: Spinal stenosis of cervical region No date: Tachycardia, unspecified Comment: on BB Previous Surgical History PAST SURGICAL HISTORY 08/30/2011: ALLOGRAFT FOR SPINE SURGERY ONLY STRUCTURAL Comment: FUSION AND REPLACED DISC lumbar No date: ANTERIOR INSTRUMENTATION 2-3 VERTEBRAL SEGMENTS No date: APPL-INTERVERTEBRAL BIOMECHANICAL DEVICES 09/28/2014: COLONOSCOPY FLX DX W/COLLJ SPEC WHEN PFRMD Comment: Colonoscopy, repeat 5 yrs No date: PAST SURGICAL HISTORY OF Comment: back injections and disc biopsy 06/17/2021: PAST SURGICAL HISTORY OF Comment: C5-C6, C6-C7 anterior cervical discectomy and fusion, Insertion of intervertebral interbody device at C5-C6, C6-C7, anterior spinal instrumentation C5-C7, Use of structural allograft Family History FAMILY HISTORY Problem Relation Age of Onset Colon Cancer Father 50 Diabetes Father Hypertension Father Prostate Cancer Father 54 Colon Cancer Paternal Grandfather Diabetes Paternal Grandfather Prostate Cancer Paternal Grandfather 50'S Hypertension Paternal Grandmother Coronary Artery Disease Maternal Aunt Hypertension Maternal Aunt Hypertension Maternal Aunt Diabetes Paternal Aunt Hypertension Paternal Aunt Colon Cancer Paternal Uncle LATE 50'S Diabetes Paternal Uncle Hypertension Paternal Uncle Prostate Cancer Paternal Uncle 50'S Anesthesia Problems No Family History Patient Allergies ALLERGIES Allergen Reactions Ativan [Lorazepam] GI Upset Hctz [Thiazides] Other: See Comments hypercalcemia Paxil [Paroxetine H* GI Upset diarrhea Zoloft [Sertraline] GI Upset Current Medications Current Outpatient Medications on File Prior to Visit Medication Sig methocarbamol (ROBAXIN) 750 mg tablet 1 tablet by ORAL/FEEDING TUBE route every 8 hours as needed (muscle spasms). gabapentin (NEURONTIN) 300 mg capsule Take 1 capsule by mouth three times a day for 30 days. gabapentin (NEURONTIN) 300 mg capsule Take 1 capsule by mouth three times a day for 30 days. rosuvastatin (CRESTOR) 10 mg tablet Take 1 tablet by mouth daily at bedtime. spironolactone (ALDACTONE) 25 mg tablet Take 1 tablet by mouth once daily. sildenafil (VIAGRA) 100 mg tablet Take 1 tablet by mouth once daily as needed. Take 30-60 minutes before sexual activity. amLODIPine (NORVASC) 10 mg tablet Take 1 tablet by mouth once daily. lisinopril (ZESTRIL) 40 mg tablet Take 1 tablet by mouth once daily. No current facility-administered medications on file prior to visit. Social History Social History Tobacco Use Smoking status: Former Current packs/day: 0.00 Average packs/day: 0.5 packs/day for 21.0 years (10.5 ttl pk-yrs) Types: Cigarettes Start date: 01/13/2003 Quit date: 01/14/2024 Years since quittin.2 Smokeless tobacco: Never Vaping Use Vaping status: Never Used Substance Use Topics Alcohol use: Yes Alcohol/week: 12.0 standard drinks of alcohol Types: 12 Cans of Beer (12oz) per week Comment: x 1 day ago, 2 cocktails and beer Drug use: Never Review of Symptoms REVIEW OF SYSTEMS SEE HPI EXAM: BP 135/82 Pulse 102 Resp 16 Wt 134.3 kg (296 lb) BMI 43.08 kg/m General Appearance: Well appearing, alert, in no acute distress, well-hydrated, well nourished.. Lungs: Lungs clear to auscultation. No wheezing, rhonchi, rales.. Heart: RRR without murmur, gallop, or rubs. No ectopy. Extremities: Edema: bilateral lower ext edema, nonpitting. Normal peripheral pulses. Health Maintenance List Depression Screening Never done Shingrix Vaccine(1 of 2) due on 02/20/2025 Influenza Vaccine(1) due on 04/30/2024 DTaP,Tdap,Td Vaccine(2 - Td or Tdap) due on 06/28/2024 Annual PCP Team Chronic Disease Visit due on 02/20/2025 BP Controlled (<130/80) due on 02/20/2025 Serum Creatinine due on 03/04/2025 Diabetes Screening due on 03/04/2027 Colorectal Cancer Screening due on 02/04/2028 Lipid Screening due on 02/20/2029 Hepatitis C Screening Completed HIV Screening Completed Hepatitis B Vaccine Discontinued Covid-19 Vaccine Discontinued ASSESSMENT/PLAN: 1. SOB (shortness of breath) - ICD9: 786.05, ICD10: R06.02 (primary diagnosis) - XR CHEST 2V FRONTAL/LAT - ECG COMPLETE 2. Bilateral leg edema - ICD9: 782.3, ICD10: R60.0 - XR CHEST 2V FRONTAL/LAT - SPIRONOLACTONE 50 MG TABLET - NT PRO BNP - COMPREHENSIVE METABOLIC PANEL - ECG COMPLETE-NSR 3. Hypertension, essential - ICD9: 401.9, ICD10: I10 - Controlled - Continue current medications - Recommend home blood pressure monitoring, to bring results to next visit - Encouraged sodium restriction, DASH or Mediterranean diet - Recommend regular aerobic exercise - Discussed need for and benefit of weight loss. BMI 43.08 kg/(m^2) Ashley Pugh APRN.SONOGRAPHY TECHNICIAN documented in this encounter [facility] 04-20-2024 Note HNO ID: [id number] Author: LEONEL LONGO PA-C Service: ? Author Type: Physician Track Mechanic Type: Progress Notes Filed: 04/20/2024 11:10 Note Text: Spine Surgery Post-Op Visit HPI: Returns to clinic 6 weeks s/p cervical foraminotomy DATE OF SURGERY/PROCEDURE: 03/03/2024 SURGEON: Pelon Greenfield M.D. SURGERY/PROCEDURE: 1. Right C5-6 and C6-7 posterior foraminotomy with the use of operating microscope. 2. Exploration of fusion SURGERY/PROCEDURE DATE: 06/17/2021 SURGEON: Flip Gonzalez MD - Primary SURGERY/PROCEDURE(S): C5-C6, C6-C7 anterior cervical discectomy and fusion, Insertion of intervertebral interbody device at C5-C6, C6-C7, anterior spinal instrumentation C5-C7, Use of structural allograft; INSTRUMENTATION: 6mm structural allograft at C5-C6, C6-C7 with a K2M anterior plate. Doing great, RUE pain/numbness resolved since surgery Mild neck/trap pain, likely more muscle pain, manageable, he is not taking any medications Working with his internal medicine MD for his BP issues, improving Exam: Incision is well-healed Motor: 5/5 SILT Assessment/Plan: 6 weeks s/p R C5-6, C6-7 foraminotomy; doing great Continue with neck exercises RTW planned for next week Follow-up 6 months post-op NACHO Coyne MD Spine Surgery [facility] 04-20-2024 History of Presen t illness Narrative Spine Surgery Post-Op Visit HPI: Returns to clinic 6 weeks s/p cervical foraminotomy DATE OF SURGERY/PROCEDURE: 03/03/2024 SURGEON: Pelon Greenfield M.D. SURGERY/PROCEDURE: 1. Right C5-6 and C6-7 posterior foraminotomy with the use of operating microscope. 2. Exploration of fusion SURGERY/PROCEDURE DATE: 06/17/2021 SURGEON: Flip Gonzalez MD - Primary SURGERY/PROCEDURE(S): C5-C6, C6-C7 anterior cervical discectomy and fusion, Insertion of intervertebral interbody device at C5-C6, C6-C7, anterior spinal instrumentation C5-C7, Use of structural allograft; INSTRUMENTATION: 6mm structural allograft at C5-C6, C6-C7 with a K2M anterior plate. Doing great, RUE pain/numbness resolved since surgery Mild neck/trap pain, likely more muscle pain, manageable, he is not taking any medications Working with his internal medicine MD for his BP issues, improving Exam: Incision is well-healed Motor: 5/5 SILT Assessment/Plan: 6 weeks s/p R C5-6, C6-7 foraminotomy; doing great Continue with neck exercises RTW planned for next week Follow-up 6 months post-op NACHO Coyne MD Spine Surgery documented in this encounter [facility] 03-31-2024 Note HNO ID: [id number] Author: LEONEL LONGO PA-C Service: ? Author Type: Physician Track Mechanic Type: Progress Notes Filed: 03/31/2024 13:05 Note Text: VIRTUAL VISIT PROGRESS NOTE This is a virtual visit using MyChart Zoom Video Visit. It required patient-provider interaction for the medical decision making as documented below. I have communicated my name and active licensure. The patient's identity and physical location were verified at the time of this visit. Either the patient or their legal loan servicing representative has been informed of the risks and benefits of -- and alternatives to -- treatment through a remote evaluation and consents to proceed with the evaluation remotely. Jason Moore is a 53 year old male seen for post-op follow-up 4 weeks s/p RIGHT C5-6, C6-7 foraminotomy DATE OF SURGERY/PROCEDURE: 03/03/2024 SURGEON: Pelon Greenfield M.D. SURGERY/PROCEDURE: 1. Right C5-6 and C6-7 posterior foraminotomy with the use of operating microscope. 2. Exploration of fusion SURGERY/PROCEDURE DATE: 06/17/2021 SURGEON: Flip Gonzalez MD - Primary SURGERY/PROCEDURE(S): C5-C6, C6-C7 anterior cervical discectomy and fusion, Insertion of intervertebral interbody device at C5-C6, C6-C7, anterior spinal instrumentation C5-C7, Use of structural allograft; INSTRUMENTATION: 6mm structural allograft at C5-C6, C6-C7 with a K2M anterior plate. Improved weakness in the RUE RUE pain/numbness improved since surgery Mainly incisional, posterior neck pain He continues with gabapentin, d/c robaxin/oxycodone Denies any wound issues; no fevers/chills, no drainage Denies any BP issues since leaving the hospital HISTORY REVIEWED (electronic chart updated): PAST MEDICAL HISTORY 02/16/2024: Abnormal echocardiogram 07/10/2016: Alcohol use Comment: 3-5 day No date: Back pain 12/16/2020: Cervical radiculopathy 05/17/2023: DDD (degenerative disc disease), lumbar 11/05/2022: ED (erectile dysfunction) of organic origin 02/21/2024: Elevated hemoglobin A1c 09/28/2014: Family history of colon cancer 03/28/2016: Fatty liver 02/16/2024: Former smoker 06/17/2021: H/O cervical spine surgery No date: Heart rate fast Comment: on BB 02/23/2024: Hypercalcemia Comment: Possibly HCTZ related No date: Hypertension 06/28/2014: Hypertension, essential 11/05/2022: LVH (left ventricular hypertrophy) Comment: With grade 1 Solomon dysfunction. 03/28/2016: Metabolic dysfunction-associated steatohepatitis (MASH) 06/28/2014: Mixed hyperlipidemia 02/16/2024: Morbid obesity (HCC) 12/16/2020: Obesity, Class II, BMI 35-39.9 No date: JOSELITO (obstructive sleep apnea) Comment: resolved with weight loss No date: Spinal stenosis in cervical region 03/26/2021: Spinal stenosis of cervical region No date: Tachycardia, unspecified Comment: on BB PAST SURGICAL HISTORY 08/30/2011: ALLOGRAFT FOR SPINE SURGERY ONLY STRUCTURAL Comment: FUSION AND REPLACED DISC lumbar No date: ANTERIOR INSTRUMENTATION 2-3 VERTEBRAL SEGMENTS No date: APPL-INTERVERTEBRAL BIOMECHANICAL DEVICES 09/28/2014: COLONOSCOPY FLX DX W/COLLJ SPEC WHEN PFRMD Comment: Colonoscopy, repeat 5 yrs No date: PAST SURGICAL HISTORY OF Comment: back injections and disc biopsy 06/17/2021: PAST SURGICAL HISTORY OF Comment: C5-C6, C6-C7 anterior cervical discectomy and fusion, Insertion of intervertebral interbody device at C5-C6, C6-C7, anterior spinal instrumentation C5-C7, Use of structural allograft FAMILY HISTORY Problem Relation Age of Onset Colon Cancer Father 50 Diabetes Father Hypertension Father Prostate Cancer Father 54 Colon Cancer Paternal Grandfather Diabetes Paternal Grandfather Prostate Cancer Paternal Grandfather 50'S Hypertension Paternal Grandmother Coronary Artery Disease Maternal Aunt Hypertension Maternal Aunt Hypertension Maternal Aunt Diabetes Paternal Aunt Hypertension Paternal Aunt Colon Cancer Paternal Uncle LATE 50'S Diabetes Paternal Uncle Hypertension Paternal Uncle Prostate Cancer Paternal Uncle 50'S Anesthesia Problems No Family History Social History Tobacco Use Smoking status: Former Packs/day: 0.50 Years: 21.00 Additional pack years: 0.00 Total pack years: 10.50 Types: Cigarettes Quit date: 01/14/2024 Years since quittin.2 Smokeless tobacco: Never Vaping Use Vaping Use: Never used Substance Use Topics Alcohol use: Yes Alcohol/week: 12.0 standard drinks of alcohol Types: 12 Cans of Beer (12oz) per week Comment: x 1 day ago, 2 cocktails and beer Drug use: Never Current Outpatient Medications Medication Sig methocarbamol (ROBAXIN) 750 mg tablet 1 tablet by ORAL/FEEDING TUBE route every 8 hours as needed (muscle spasms). gabapentin (NEURONTIN) 300 mg capsule Take 1 capsule by mouth three times a day for 30 days. gabapentin (NEURONTIN) 300 mg capsule Take 1 capsule by mouth three times a day for 30 days. rosuvastatin (CRESTOR) 10 mg tab (more content not included)... [facility] 03-31-2024 History of Presen t illness Narrative VIRTUAL VISIT PROGRESS NOTE This is a virtual visit using Dragonflyom Video Visit. It required patient-provider interaction for the medical decision making as documented below. I have communicated my name and active licensure. The patient's identity and physical location were verified at the time of this visit. Either the patient or their legal loan servicing representative has been informed of the risks and benefits of -- and alternatives to -- treatment through a remote evaluation and consents to proceed with the evaluation remotely. Jason Moore is a 53 year old male seen for post-op follow-up 4 weeks s/p RIGHT C5-6, C6-7 foraminotomy DATE OF SURGERY/PROCEDURE: 03/03/2024 SURGEON: Pelon Greenfield M.D. SURGERY/PROCEDURE: 1. Right C5-6 and C6-7 posterior foraminotomy with the use of operating microscope. 2. Exploration of fusion SURGERY/PROCEDURE DATE: 06/17/2021 SURGEON: Flip Gonzalez MD - Primary SURGERY/PROCEDURE(S): C5-C6, C6-C7 anterior cervical discectomy and fusion, Insertion of intervertebral interbody device at C5-C6, C6-C7, anterior spinal instrumentation C5-C7, Use of structural allograft; INSTRUMENTATION: 6mm structural allograft at C5-C6, C6-C7 with a K2M anterior plate. Improved weakness in the RUE RUE pain/numbness improved since surgery Mainly incisional, posterior neck pain He continues with gabapentin, d/c robaxin/oxycodone Denies any wound issues; no fevers/chills, no drainage Denies any BP issues since leaving the hospital HISTORY REVIEWED (electronic chart updated): PAST MEDICAL HISTORY 02/16/2024: Abnormal echocardiogram 07/10/2016: Alcohol use Comment: 3-5 day No date: Back pain 12/16/2020: Cervical radiculopathy 05/17/2023: DDD (degenerative disc disease), lumbar 11/05/2022: ED (erectile dysfunction) of organic origin 02/21/2024: Elevated hemoglobin A1c 09/28/2014: Family history of colon cancer 03/28/2016: Fatty liver 02/16/2024: Former smoker 06/17/2021: H/O cervical spine surgery No date: Heart rate fast Comment: on BB 02/23/2024: Hypercalcemia Comment: Possibly HCTZ related No date: Hypertension 06/28/2014: Hypertension, essential 11/05/2022: LVH (left ventricular hypertrophy) Comment: With grade 1 Solomon dysfunction. 03/28/2016: Metabolic dysfunction-associated steatohepatitis (MASH) 06/28/2014: Mixed hyperlipidemia 02/16/2024: Morbid obesity (HCC) 12/16/2020: Obesity, Class II, BMI 35-39.9 No date: JOSELITO (obstructive sleep apnea) Comment: resolved with weight loss No date: Spinal stenosis in cervical region 03/26/2021: Spinal stenosis of cervical region No date: Tachycardia, unspecified Comment: on BB PAST SURGICAL HISTORY 08/30/2011: ALLOGRAFT FOR SPINE SURGERY ONLY STRUCTURAL Comment: FUSION AND REPLACED DISC lumbar No date: ANTERIOR INSTRUMENTATION 2-3 VERTEBRAL SEGMENTS No date: APPL-INTERVERTEBRAL BIOMECHANICAL DEVICES 09/28/2014: COLONOSCOPY FLX DX W/COLLJ SPEC WHEN PFRMD Comment: Colonoscopy, repeat 5 yrs No date: PAST SURGICAL HISTORY OF Comment: back injections and disc biopsy 06/17/2021: PAST SURGICAL HISTORY OF Comment: C5-C6, C6-C7 anterior cervical discectomy and fusion, Insertion of intervertebral interbody device at C5-C6, C6-C7, anterior spinal instrumentation C5-C7, Use of structural allograft FAMILY HISTORY Problem Relation Age of Onset Colon Cancer Father 50 Diabetes Father Hypertension Father Prostate Cancer Father 54 Colon Cancer Paternal Grandfather Diabetes Paternal Grandfather Prostate Cancer Paternal Grandfather 50'S Hypertension Paternal Grandmother Coronary Artery Disease Maternal Aunt Hypertension Maternal Aunt Hypertension Maternal Aunt Diabetes Paternal Aunt Hypertension Paternal Aunt Colon Cancer Paternal Uncle LATE 50'S Diabetes Paternal Uncle Hypertension Paternal Uncle Prostate Cancer Paternal Uncle 50'S Anesthesia Problems No Family History Social History Tobacco Use Smoking status: Former Packs/day: 0.50 Years: 21.00 Additional pack years: 0.00 Total pack years: 10.50 Types: Cigarettes Quit date: 01/14/2024 Years since quittin.2 Smokeless tobacco: Never Vaping Use Vaping Use: Never used Substance Use Topics Alcohol use: Yes Alcohol/week: 12.0 standard drinks of alcohol Types: 12 Cans of Beer (12oz) per week Comment: x 1 day ago, 2 cocktails and beer Drug use: Never Current Outpatient Medications Medication Sig methocarbamol (ROBAXIN) 750 mg tablet 1 tablet by ORAL/FEEDING TUBE route every 8 hours as needed (muscle spasms). gabapentin (NEURONTIN) 300 mg capsule Take 1 capsule by mouth three times a day for 30 days. gabapentin (NEURONTIN) 300 mg capsule Take 1 capsule by mouth three times a day for 30 days. rosuvastatin (CRESTOR) 10 mg tablet Take 1 tablet by mouth daily at bedtime. spironolactone (ALDACTONE) 25 mg tablet Take 1 tablet by mouth once daily. sildenafil (VIAGRA) 100 mg tablet Take 1 tablet by mouth once daily as needed. Take 30-60 minutes before sexual activity. amLODIPine (NORVASC) 10 mg tablet Take 1 tablet by mouth once daily. lisinopril (ZESTRIL) 40 mg tablet Take 1 tablet by mouth once daily. No current facility-administered medications for this visit. ALLERGIES Allergen Reactions Ativan [Lorazepam] GI Upset Hctz [Thiazides] Other: See Comments hypercalcemia Paxil [Paroxetine H* GI Upset diarrhea Zoloft [Sertraline] GI Upset ASSESSMENT/PLAN: 4 weeks s/p RIGHT C5-6, C6-7 foraminotomy; exploration of fusion Doing well, continue observation Follow-up as planned 04/[address] Greenfield I spent a total of 20 minutes on the date of the service which included counseling and educating the patient/family/caregiver Leonel Longo PA-C Spine Surgery documented in this encounter [facility] 03-21-2024 Telephone encounter Note Transitional Care Management (TCM) [facility] Provider Action / FYI: N/A SUMMARY: Outreach type: INITIAL OUTREACH Discharge Network Status: In-Network Discharge Source of Patient: [facility] TCM Discharge Report Patient discharged from [facility] on 03/04/24. Admitted for Cervical radicular pain. Contact made with patient: No - next outreach attempt will be on next business day. Irasema Cao March 21, 2024 2:31 PM [facility] 03-21-2024 Miscellaneous Notes Transitional Care Management (TCM) [facility] Provider Action / FYI: N/A SUMMARY: Outreach type: INITIAL OUTREACH Discharge Network Status: In-Network Discharge Source of Patient: [facility] TCM Discharge Report Patient discharged from [facility] on 03/04/24. Admitted for Cervical radicular pain. Contact made with patient: No - next outreach attempt will be on next business day. Irasema Cao March 21, 2024 2:31 PM documented in this encounter [facility] 03-09-2024 Telephone encounter Note Transitional Care Management (TCM) [facility] Provider Action / FYI: N/a SUMMARY: Outreach type: INITIAL OUTREACH Discharge Network Status: In-Network Discharge Source of Patient: [facility] TCM Discharge Report Patient discharged from [facility] on 03/04/2024. Admitted for Cervical radicular pain. Contact made with patient: No - next outreach attempt will be on next business day. Ann Berrios March 09, 2024 12:53 PM [facility] 03-09-2024 Miscellaneous Notes Transitional Care Management (TCM) [facility] Provider Action / FYI: N/a SUMMARY: Outreach type: INITIAL OUTREACH Discharge Network Status: In-Network Discharge Source of Patient: [facility] TCM Discharge Report Patient discharged from [facility] on 03/04/2024. Admitted for Cervical radicular pain. Contact made with patient: No - next outreach attempt will be on next business day. 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 Global longitudinal strain severely abnormal, being worked up for amyloid JOSELITO, resolved w/ weight loss C5-7 ACDF 2 years ago Preoperative Hospital Course: 53 year old male who underwent planned cervical spine surgery. His periop course was notable for hypotension and decreased cardiac output for which he was started on epinephrine and levophed infusions. Decision made not to extubate d/t tachypnea so he was transferred to SICU intubated on levo/epi infusions. Airway Difficulty: Grade I - video laryngoscopy Mac 4 Difficult Central Access: No Recent ECHO: Date: 10/07/2022 LVEF: 65% RVF: Normal Code Status: Full Chronological List of Surgeries and Major Events (Diagnosis): (Surgeries in bold characters) 03/03/2024: Right C5/6 and C6/7 foraminotomy Major Events within past 24 hours hemodynamically stable, off all pressors. mildly Hypertensive. ambulating w/ PT pain well controlled A/P of Major Active Problems (excluding routine care and common problems): Neuro: Post op pain, Anxiety, s/p C5/6 and C6/7 foraminotomy - postop neuro checks: moving all extremities, monitor closely - only on gapapentin prior to admission -prn oxycodone w/ dilaudid for btp -continue robaxin, gabapentin CV: Shock Cardiogenic HTN started on epi /levo in OR d/t hypotension after induction. Pressors weaned off shortly after SICU arrival Lactic acidosis, possible d/t epi infusion RESOLVED - resume home norvasc, holding home lisinopril - home crestor - stat echo ordered, follow up - postop ECG stable Resp: On Mechanical Ventilation, Acute post-operative resp insufficiency, and smoking history Left intubated in OR has he became tachypneic w/ RR 30's upon emergence. if d/t compensation from lactic acidosis Successfully weaned to extubate shortly after arrival to SICU and doing well. No c/o SOB - aggressive BPH/IS/PEP/OOB GI: - ordered regular diet. - consider bowel regimen Renal/FEN: CKD - Baseline Cr 1.36-->1.8 (03/03)->1.25(03/04) - nonoliguric - supportive care Heme: Acute Blood Loss Anemia, postop Hgb 13.2 - EBL 50 - continue to monitor H/H ID: Leukocytosis - expected posotp leukocytosis. No signs of infection. - continue periop cefazolin w/ end date 03/04 Endo: Stress Hyperglycemia, Hgb A!C noted to be 6.4 on 02/15, not on meds - SSI #1 for now Nutrition: regular Daily Plan Summary and To Dos/Watch: Transfer to [facility] Stat echo pending. Consider cards consult Barriers to transfer out of ICU: none Disposition: SICU Other Problems I reviewed and/or Managed During This Encounter: Principal Problem: Cervical radicular pain (POA: Yes) Active Problems: Cervical radiculopathy (POA: Yes) Obesity, Class III, BMI >= 40 (POA: Unknown) Acute postoperative pulmonary insufficiency (HCC) (POA: Unknown) Stress hyperglycemia (POA: Unknown) Acute blood loss anemia (POA: Unknown) Acute postop pain NEC (POA: Unknown) Chronic kidney disease (POA: Unknown) Resolved Problems: Cardiogenic shock (HCC) (POA: Unknown) No problems updated. OBJECTIVE Vitals: 03/04/24 0759 03/04/24 0800 03/04/24 0809 03/04/24 1000 Pulse: 75 79 88 BP: 148/72 MAP Non Invasive (Mean Arterial Pressure): 102 Arterial BP 1: 146/75 157/87 MAP Invasive (Mean Arterial Pressure) 1: 97 97 109 Resp: 29 SpO2: 95% There were no vitals filed for this visit. Intake/Output Summary (Last 24 hours) at 03/04/2024 1105 Last data filed at 03/04/2024 1100 Gross per 24 hour Intake 2518.9 ml Output 5505 ml Net -2986.1 ml Weight: 129.9 kg (286 lb 6 oz) (03/04/24603) Weight: 129.9 kg (286 lb 6 oz) (03/04/24603) PHYSICAL EXAM Respiratory Support: On Room Air Vent/Oxygen:O2 Therapy: Room Air (03/04/24 0800) Physical Examination: (Choices are re-selectable with right click) General Appearance and Neuro: No Acute Distress, follows commands, moving all extremities Heart and Vascular: Regular rate and rhythm, no ectopy, no murmur, strong peripheral pulses Respiratory: Lungs clear to auscultation. No wheezing, rhonchi, or rales Abdomen: Soft and Non-tender Renal: Adequate urine output Extremities/MSK/ (more content not included)... [facility] 03-04-2024 Note HNO ID: [id number] Author: BENI LAGOS MD Service: Neurosurgery Author Type: Resident Type: Progress Notes Filed: 03/04/2024 07:33 Note Text: Neurosurgery Inpatient Progress Note Interval HPI: Patient reports complete resolution of hand pain/paresthesias Not requiring pressors VSS Lactate downtrending Objective: 03/03/24 1253 03/03/24 1300 03/03/24 1315 03/03/24 1400 BP: Pulse: 108 106 104 111 Resp: 25 19 20 18 Temp: TempSrc: SpO2: 93% 93% 91% 96% Intake/Output Summary (Last 24 hours) at 03/03/2024 1602 Last data filed at 03/03/2024 1400 Gross per 24 hour Intake 1700 ml Output 1475 ml Net 225 ml EXAM: AO x 3 CN grossly intact Strength: RUE: D 5 Bi 5 Tri 5 HG 5 HI 5 LUE: D 5 Bi 5 Tri 5 HG 5 HI 5 RLE: HF 5 KE 5 DF 5 EHL 5 PF 5 LLE: HF 5 KE 5 DF 5 EHL 5 PF 5 SILT in all dermatomes Dressing c/d/i BP 124/73 Pulse 111 Temp (Src) 98.6 (Temporal Artery) Resp 18 SpO2 96% O2 Therapy: Nasal Cannula, Liters: 6, %FIO2: 40 A/P: 53M with PMH HTN, HLD, LVH, EtOH use, former smoker (quit 01/14/2024), morbid obesity, JOSELITO, prior C5-7 ACDF (Dr. Flip Gonzalez, 05/2021) who presents with neck pain and RUE pain/paraesthesias. S/p R C5/6, C6/7 foraminotomy on 03/03/24. - Transfer to [facility] - Periop Ancef, done today - Pain control - reg diet - PT/OT - SCDs, hold SQH for now - Possible discharge later today if continues to do well - already follows with [place]ology in [id number] follow up with them and get outpt ECHO Staff: Dr. Greenfield Signature: Beni Lagos MD PGY4, Neurosurgery [facility] On-call pager: [phone] [facility] 03-03-2024 Note HNO ID: [id number] Author: DORY GAFFNEY MD Service: Neurosurgery Author Type: Resident Type: Plan of Care Filed: 03/03/2024 17:29 Note Text: Neurosurgery Post-Operative Note Patient: Jason Moore Interval HPI Patient extubated, off pressors. Reports R arm spasms resolved Exam Waking up from anesthesia CN grossly intact Strength: RUE: D 5 Bi 5 Tri 5 HG 5 HI 5 LUE: D 5 Bi 5 Tri 5 HG 5 HI 5 RLE: HF 5 KE 5 DF 5 EHL 5 PF 5 LLE: HF 5 KE 5 DF 5 EHL 5 PF 5 SILT in all dermatomes Incision clean, dry, and intact Assessment/Plan Patient is a 53 year old male with h/o LVH, HTN, former smoker, obesity, JOSELITO, prior C5-7 ACDF who is s/p 03/03/2024 R C5/6 and C6/7 foraminotomy -SICU care, [facility] tomorrow -Neurologically stable -Pain control -dc bowles -possible dc home tomorrow Dory Gaffney MD PGY-6, Neurological Surgery Pager: [phone] 5:28 PM 03/03/24 [facility] 03-03-2024 Note HNO ID: [id number] Author: VANI LINDA APRN.CNP Service: Critical Care Author Type: Nurse Practitioner Type: Progress Notes Filed: 03/03/2024 13:35 Note Text: Surgical ICU Progress Note Service Date: March 03, 2024 Service Time: 1333 Admission Date: 03/03/2024 Hospital Day: # 0 Day of Surgery CARE COORDINATION NOTE Indication for Surgery: RUE arm pain and paresthesias; 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 Global longitudinal strain severely abnormal, being worked up for amyloid JOSELITO, resolved w/ weight loss C5-7 ACDF 2 years ago Preoperative Hospital Course: 53 year old male who underwent planned cervical spine surgery. His periop course was notable for hypotension and decreased cardiac output for which he was started on epinephrine and levophed infusions. Decision made not to extubate d/t tachypnea so he was transferred to SICU intubated on levo/epi infusions. Airway Difficulty: Grade I - video laryngoscopy Mac 4 Difficult Central Access: No Recent ECHO: Date: 10/07/2022 LVEF: 65% RVF: Normal Code Status: Full Chronological List of Surgeries and Major Events (Diagnosis): (Surgeries in bold characters) 03/03/2024: Right C5/6 and C6/7 foraminotomy Major Events within past 24 hours admitted to SICU on epi, levo. Epi d/c initial pH 7.13, lactate 7.4 given albumin sedated w/ propofol and fentanyl infusions Stat echo ordered A/P of Major Active Problems (excluding routine care and common problems): Neuro: Post op pain, Anxiety, s/p C5/6 and C6/7 foraminotomy - postop neuro checks: moving all extremities, monitor closely - Continue sedation with Sedation: Propofol and Fentanyl - only on gapapentin prior to admission -prn fentanyl for evidence of pain. Start oxycodone once extubated -start robaxin, gabapentin once po access obtained CV: Shock Cardiogenic started on epi /levo in OR d/t hypotension after induction. Lactic acidosis, possible d/t epi infusion - Maintain MAP greater than 65 - Requiring ICR Vasopressor: norepinephrine; wean pressors as tolerated - Monitor lactate level and UOP. Fluid resuscitation judiciously. - hold home antihypertensives - hold crestor - stat echo ordered - postop ECG stable - follow up postop troponin - consider cardilogy consult Resp: On Mechanical Ventilation, Acute post-operative resp insufficiency, and smoking history Left intubated in OR has he became tachypneic w/ RR 30's upon emergence. if d/t compensation from lactic acidosis - WTE as tolerated; aggressive BPH/IS/PEP/OOB once extubated GI: npo while intubated - NPO for now. - consider bowel regimen once extubated Renal/FEN: CKD - Baseline Cr 1.36 - monitor postop bun/creat/uriine ouput - supportive care Heme: Acute Blood Loss Anemia, postop Hgb 13.2 - EBL 50 - continue to monitor H/H ID: Leukocytosis - expected posotp leukocytosis. No signs of infection. - continue periop cefazolin w/ end date 03/04 Endo: Stress Hyperglycemia, Hgb A!C noted to be 6.4 on 02/15, not on meds - SSI #1 for now Nutrition: NPO Daily Plan Summary and To Dos/Watch: Wean pressors as able wean vent as able Stat echo pending. Consider cards consult Barriers to transfer out of ICU: pressors, intubated Disposition: SICU Other Problems I reviewed and/or Managed During This Encounter: Principal Problem: Cervical radicular pain (POA: Yes) Active Problems: Cervical radiculopathy (POA: Yes) Obesity, Class III, BMI >= 40 (POA: Unknown) Cardiogenic shock (HCC) (POA: Unknown) Acute postoperative pulmonary insufficiency (HCC) (POA: Unknown) Stress hyperglycemia (POA: Unknown) Acute blood loss anemia (POA: Unknown) Acute postop pain NEC (POA: Unknown) Resolved Problems: * No resolved hospital problems. * Problem Cardiogenic Shock (Hcc) Acute Postoperative Pulmonary Insufficiency (Hcc) Stress Hyperglycemia Acute Blood Loss Anemia Acute Postop Pain NEC Cervical Radiculopathy Obesity Class III (BMI +/>40 or >35 with comorbidity) OBJECTIVE Vitals: 03/03/24 1230 03/03/24 1245 03/03/24 1253 03/03/24 1300 Pulse: 118 106 108 106 BP: Arterial BP 1: 128/77 109/57 119/63 MAP Invasive (Mean Arterial Pressure) 1: 94 72 80 Resp: SpO2: 96% 95% 93% 93% There were no vitals filed for this visit. Intake/Output Summary (Last 24 hours) at 03/03/2024 1333 Last data filed at 03/03/2024 1126 Gross per 24 hour Intake 1700 ml Output 300 ml Net 1400 ml PHYSICAL EXAM Respiratory Support: Intubated Vent/Oxygen:O2 Therapy: Ventilator (03/03/24 1253) %FIO2: 40 ( (more content not included)... [facility] 03-03-2024 Note HNO ID: [id number] Author: CHRISTIANO HUGO SRNA Service: ? Author Type: Student Type: Anesthesia Procedure Notes Filed: 03/03/2024 11:13 Note Text: ANESTHESIOLOGY PROCEDURE NOTE CVL General Information Procedure Start Time/Medication Administration: 03/03/2024 11:11 AM Procedure End Time: 03/03/2024 11:11 AM Patient location during procedure: OR Timeout Performed Pre-procedure: timeout performed Consent Obtained: Yes Patient identity confirmed: arm band and patient sedated or unresponsive Indication: central venous access and CVP monitoring Staffing Anesthesiologist: Tita Simms MD Performed by: anesthesiologist Preparation Sterility Preparation: hand hygiene performed prior to procedure, sterile gloves, drapes, and procedure tray, gown used during line insertion, surgical cap used, mask used, sterile drape used during line insertion, skin prep agent completely dried prior to procedure Site Prep: Chloraprep Procedure Details Patient Position: Trendelenburg Laterality: Right Site: Internal jugular Catheter Type: Standard CVL Catheter Size: 8.5 Fr Number of Lumens: Double lumen Ultrasound Guided: Yes Image in Chart: Yes Sites: potential access sites evaluated, selected vessel patent, concurrent real time ultrasound visualization of vascular needle entry Vessel: target vessel identified and guidewire advanced into vessel Needle advanced into vein and blood aspirated: Yes Transduced prior to dilation: Yes Number of Attempts: 1 Number of Guidewires Used: 1 Number of Guidewires Removed Intact: 1 Chest X-ray Ordered: Yes Chest X-Ray Results: adequate position Post Insertion Ports and Catheter: all ports aspirate easily Catheter Secured: suture(s), central line dressing applied and antimicrobial dressing applied Events Events: patient tolerated procedure well with no complications SIGNATURE: REJI Arenas PATIENT NAME: Jason Moore DATE: March 03, 2024 TIME: 11:11 AM CSN: [id number] [facility] 03-03-2024 Note HNO ID: [id number] Author: DORY GAFFNEY MD Service: Neurosurgery Author Type: Resident Type: Progress Notes Filed: 03/03/2024 10:43 Note Text: Neurosurgery Post-Operative Note Patient: Jason Moore Interval HPI Postop check Objective Vitals 03/03/24 0720 BP: 124/73 Pulse: 92 Resp: 18 Temp: 36.8 ?C (98.2 ?F) TempSrc: Temporal Artery SpO2: 98% Exam Intubated, sedated, on paralytics, multiple pressors PERRL Dressing clean, dry, and intact Assessment/Plan Patient is a 53 year old male with h/o LVH, HTN, former smoker, obesity, JOSELITO, prior C5-7 ACDF who is s/p 03/03/2024 R C5/6 and C6/7 foraminotomy -Admit to ICU -Neuro exam pending sedation able to be weaned -Wean to extubate/off pressors when able -Pain control -Okay for diet -PT/OT -Imaging: None -Cardiac work-up w repeat ECHO when able -okay for RNF when hemodynamically stable Dory Gaffney MD PGY-6, Neurological Surgery Pager: [phone] 10:28 AM 03/03/24 [facility] 03-03-2024 Note HNO ID: [id number] Author: CHRISTIANO HUGO SRNA Service: ? Author Type: Student Type: Anesthesia Procedure Notes Filed: 03/03/2024 08:53 Note Text: ANESTHESIOLOGY PROCEDURE NOTE A-Line General Information Procedure Start Time/Medication Administration: 03/03/2024 8:00 AM Procedure End Time: 03/03/2024 8:10 AM Patient location during procedure: OR Timeout Performed Pre-procedure: timeout performed Indications: continuous blood pressure monitoring and blood sampling needed Staffing CRITICAL CARE SPECIALIST: Bernabe Adams APRN.CRITICAL CARE SPECIALIST SRNA: Christiano Hugo SRNA Performed by: REJI Preparation Sterility Preparation: hand hygiene performed prior to procedure, sterile gloves, drapes, and procedure tray, surgical cap used, mask used, sterile drape used during line insertion, skin prep agent completely dried prior to procedure Sterility Technique Not Completely Performed Due to Extreme Emergency: No Site Prep: Chloraprep Procedure Details Catheter Type: arterial line Catheter Size: 20 G Catheter Length: 5.25 in Micropuncture Kit Used: No Guidewire Used: Yes Guidewire Removed Intact: Yes Laterality: right Site: radial artery Ultrasound Guided: No Line Secured: occlusive biodressing and tape Events Events: patient tolerated procedure well with no complications SIGNATURE: REJI Arenas PATIENT NAME: Jason Moore DATE: March 03, 2024 TIME: 8:52 AM CSN: [id number] [facility] 03-03-2024 Note HNO ID: [id number] Author: CHRISTIANO HUGO SRNA Service: ? Author Type: Student Type: Anesthesia Procedure Notes Filed: 03/03/2024 08:52 Note Text: ANESTHESIOLOGY PROCEDURE NOTE Airway General Information Procedure Start Time/Medication Administration: 03/03/2024 7:56 AM Procedure End Time: 03/03/2024 7:56 AM Patient location during procedure: OR Timeout Performed Pre-procedure: timeout performed Consent Obtained: Yes Patient identity confirmed: arm band, care steamblaster and patient Staffing Anesthesiologist: Tita Simms MD CRITICAL CARE SPECIALIST: Bernabe Adams APRN.CRITICAL CARE SPECIALIST SRNA: Christiano Hugo SRNA Performed by: REJI Indications and Patient Condition Indications for airway management: anesthesia and airway protection Preoxygenated: yes anesthesia circuit Patient position: sniffing Method: asleep Cricoid Pressure: No Manual In-Line Stabilization: No Difficult Mask: No Airway Accessory: oral airway Final Airway Details Final airway type: endotracheal airway Cuffed: yes Successful intubation technique: video laryngoscopy Devices used: Tellez Endotracheal tube insertion site: oral Blade: Andrew Blade size: #4 Measured from: lips Measurement (cm): 23 Placement verified by: capnometry Cormack-Lehane Classification: grade I - full view of glottis Number of attempts at approach: 1 Failed airway: no Unrecognized esophageal intubation: no Airway not difficult SIGNATURE: REJI Arenas PATIENT NAME: Jason Moore DATE: March 03, 2024 TIME: 8:50 AM CSN: [id number] [facility] 02-25-2024 Telephone encounter Note The following approved medication requests have been transmitted electronically. Requested Prescriptions Signed Prescriptions Disp Refills rosuvastatin (CRESTOR) 10 mg tablet 30 tablet 5 Sig: Take 1 tablet by mouth daily at bedtime. Authorizing Provider: COLTON ROSARIO spironolactone (ALDACTONE) 25 mg tablet 30 tablet 5 Sig: Take 1 tablet by mouth once daily. Authorizing Provider: COLTON ROSARIO MD [facility] 02-25-2024 Miscellaneous Notes The following approved medication requests have been transmitted electronically. Requested Prescriptions Signed Prescriptions Disp Refills rosuvastatin (CRESTOR) 10 mg tablet 30 tablet 5 Sig: Take 1 tablet by mouth daily at bedtime. Authorizing Provider: COLTON ROSARIO spironolactone (ALDACTONE) 25 mg tablet 30 tablet 5 Sig: Take 1 tablet by mouth once daily. Authorizing Provider: COLTON ROSARIO MD Patient notified of results and provider's instructions. Patient verbalizes understanding. Patient will to start both medications and stop hydrochlorothiazide. Please place orders for medications and labs. Vianney Barron RN Left a message for pt to call the office and ask to speak to a nurse. Phuong Wise LPN Left message for return call. Jennifer Plaza MA Let patient know lipid panel showed Trigs elevated at 354 (goal<150 and was 652) HDL ok at 45 and LDL elevated at 196 (goal<130). With the liver concerns we definitely need to start a statin. I would like to put him on Crestor 10 mg a day to start. If ok I will send in a script and place orders for a lipid panel and LFT's to be done in 4 months. Prostate lab was good. His parathyroid level is ok. The calcium is improved but still elevated. This maybe due to his water pill, Hydrochlorothiazide. I would like to stop this and put him on aldactone 25 mg a day. If ok will send in a scrip. I would want a repeat calcium panel in a month and order would be placed. documented in this encounter [facility] 02-25-2024 Telephone encounter Note Patient notified of results and provider's instructions. Patient verbalizes understanding. Patient will to start both medications and stop hydrochlorothiazide. Please place orders for medications and labs. Vianney Barron RN [facility] 02-25-2024 Telephone encounter Note Left a message for pt to call the office and ask to speak to a nurse. Phuong Wise LPN [facility] 02-24-2024 Note HNO ID: [id number] Author: MARIELLE VAZQUEZ RN Service: ? Author Type: Registered Nurse Type: Progress Notes Filed: 02/24/2024 14:52 Note Text: Neuro SPINE CARE COORDINATION VSEA PRE-OP VISIT Met with patient via VSEA for pre op education. Given both written and verbal instructions re : Skin prep, wound care, pain management and post op restrictions. Provided to patient: [facility] Surgery Guide, Spine Surgery Pre/post op education. Yes Reviewed with patient to report to desk J19 for surgery ? Yes. Reviewed with the patient to call [phone] the day before to get surgery report time? Yes. Patient aware eat nothing after midnight prior to surgery, clear liquids only until 2 hours before report time. Yes. Discussed care post discharge : Self care, Home Health Care ( PT-OT-nurse), and acute rehab. Does patient have transportation to and from surgery ? Yes. Falls Education provided ? Yes Nasal swab to be obtained during PACC. Patient instructed in mupirocin treatment : to begin treatment 5 days prior to surgery if nasal swab positive or if swab not obtained. Questions answered and patient voice(s) understanding via teach back. Physical Therapy : if appropriate Additional Comments : n/a Marielle Vazquez RN [facility] 02-24-2024 History of Presen t illness Narrative Neuro SPINE CARE COORDINATION VSEA PRE-OP VISIT Met with patient via VSEA for pre op education. Given both written and verbal instructions re : Skin prep, wound care, pain management and post op restrictions. Provided to patient: [facility] Surgery Guide, Spine Surgery Pre/post op education. Yes Reviewed with patient to report to desk J19 for surgery ? Yes. Reviewed with the patient to call [phone] the day before to get surgery report time? Yes. Patient aware eat nothing after midnight prior to surgery, clear liquids only until 2 hours before report time. Yes. Discussed care post discharge : Self care, Home Health Care ( PT-OT-nurse), and acute rehab. Does patient have transportation to and from surgery ? Yes. Falls Education provided ? Yes Nasal swab to be obtained during PACC. Patient instructed in mupirocin treatment : to begin treatment 5 days prior to surgery if nasal swab positive or if swab not obtained. Questions answered and patient voice(s) understanding via teach back. Physical Therapy : if appropriate Additional Comments : n/a Marielle Vazquez RN documented in this encounter [facility] 02-24-2024 Telephone encounter Note Left message for return call. Jennifer Plaza MA [facility] 02-23-2024 Telephone encounter Note Let patient know lipid panel showed Trigs elevated at 354 (goal<150 and was 652) HDL ok at 45 and LDL elevated at 196 (goal<130). With the liver concerns we definitely need to start a statin. I would like to put him on Crestor 10 mg a day to start. If ok I will send in a script and place orders for a lipid panel and LFT's to be done in 4 months. Prostate lab was good. His parathyroid level is ok. The calcium is improved but still elevated. This maybe due to his water pill, Hydrochlorothiazide. I would like to stop this and put him on aldactone 25 mg a day. If ok will send in a scrip. I would want a repeat calcium panel in a month and order would be placed. 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 Dunn for clearance prior to upcoming procedure. Can you please call to make sure this fax was received, and assist in follow-up? Thank you. Claus Hinton PA-C documented in this encounter [facility] 02-21-2024 Instructions Colton Rosario MD - 02/21/2024 10:14 AM EDT If you are considering the shingrix vaccine for the prevention of shingles make torri it is covered by insurance and you can get it at your doctor's office. Please get labs done on or after 08/11/2024 prior to your next visit. documented in this encounter [facility] 02-21-2024 History of Presen t illness Narrative Images from the original note were not included. Chief Complaint Patient presents with: Physical HPI Jason Moore is a 53 year old male who presents here today for Physical/pre op. PMHx: HTN, high cholesterol, impaired fasting glucose, obesity, tobacco use and alcohol use. Procedure: ARTHRODESIS CERVICAL POSTERIOR, BELOW C2 1ST SINGLE LEVEL with Surgeon Dr. Pelon Greenfield on 03/03/2024 No new issues or concerns. Patient can walk a flight of stairs and push a piece of furniture without chest pain. Past medical history, appointments, medications, allergies reviewed. Previous Medical History PAST MEDICAL HISTORY Diagnosis Date Abnormal echocardiogram 02/16/2024 Alcohol use 07/10/2016 3-5 day Back pain Cervical radiculopathy 12/16/2020 Fatty liver 03/28/2016 Former smoker 02/16/2024 Heart rate fast on BB Hypertension Hypertension, essential 06/28/2014 LVH (left ventricular hypertrophy) 11/05/2022 With grade 1 Solomon dysfunction. Mixed hyperlipidemia 06/28/2014 Morbid obesity (HCC) 02/16/2024 Obesity, Class II, BMI 35-39.9 12/16/2020 JOSELITO (obstructive sleep apnea) resolved with weight loss Spinal stenosis in cervical region Tachycardia, unspecified on BB Previous Surgical History PAST SURGICAL HISTORY Procedure Laterality Date ALLOGRAFT FOR SPINE SURGERY ONLY STRUCTURAL 08/30/2011 FUSION AND REPLACED DISC lumbar ANTERIOR INSTRUMENTATION 2-3 VERTEBRAL SEGMENTS APPL-INTERVERTEBRAL BIOMECHANICAL DEVICES COLONOSCOPY FLX DX W/COLLJ SPEC WHEN PFRMD 09/28/2014 Colonoscopy, repeat 5 yrs PAST SURGICAL HISTORY OF back injections and disc biopsy PAST SURGICAL HISTORY OF 06/17/2021 C5-C6, C6-C7 anterior cervical discectomy and fusion, Insertion of intervertebral interbody device at C5-C6, C6-C7, anterior spinal instrumentation C5-C7, Use of structural allograft Family History FAMILY HISTORY Problem Relation Age of Onset Colon Cancer Father 50 Diabetes Father Hypertension Father Prostate Cancer Father 54 Colon Cancer Paternal Grandfather Diabetes Paternal Grandfather Prostate Cancer Paternal Grandfather 50'S Hypertension Paternal Grandmother Coronary Artery Disease Maternal Aunt Hypertension Maternal Aunt Hypertension Maternal Aunt Diabetes Paternal Aunt Hypertension Paternal Aunt Colon Cancer Paternal Uncle LATE 50'S Diabetes Paternal Uncle Hypertension Paternal Uncle Prostate Cancer Paternal Uncle 50'S Anesthesia Problems No Family History Patient Allergies ALLERGIES Allergen Reactions Ativan [Lorazepam] GI Upset Paxil [Paroxetine H* GI Upset diarrhea Zoloft [Sertraline] GI Upset Current Medications Current Outpatient Medications on File Prior to Visit Medication Sig varenicline (CHANTIX STARTING MONTH BOX) 0.5 mg (11)- 1 mg (42) tablet Take 0.5 mg by mouth once daily on Days 1 through 3, THEN 0.5 mg twice daily on Days 4 through 7, THEN 1 mg twice daily on Day 8 and thereafter varenicline (CHANTIX CONTINUING MONTH BOX) 1 mg tablet Take 1 tablet by mouth two times a day with meals. Start the month after the starter pack amLODIPine (NORVASC) 10 mg tablet Take 1 tablet by mouth once daily. lisinopril (ZESTRIL) 40 mg tablet Take 1 tablet by mouth once daily. hydroCHLOROthiazide 25 mg tablet Take 1 tablet by mouth once daily. gabapentin (NEURONTIN) 300 mg capsule Take 1 capsule by mouth daily at bedtime. For 3 days and then one twice a day for three days and then one three times a day as tolerated. Tadalafil (CIALIS) 20 mg tablet Take 1 tablet by mouth once daily. As needed. No current facility-administered medications on file prior to visit. Social History Social History Tobacco Use Smoking status: Former Packs/day: 0.50 Years: 21.00 Additional pack years: 0.00 Total pack years: 10.50 Types: Cigarettes Quit date: 01/14/2024 Years since quittin.1 Smokeless tobacco: Never Vaping Use Vaping Use: Never used Substance Use Topics Alcohol use: Yes Alcohol/week: 12.0 standard drinks of alcohol Types: 12 Cans of Beer (12oz) per week Comment: x 1 day ago, 2 cocktails and beer Drug use: Never Review of Symptoms REVIEW OF SYSTEMS GENERAL: No weight loss, malaise or fevers HEENT: Negative for frequent or significant headaches, No changes in hearing or vision, no nose bleeds or other nasal problems NECK: Negative for lumps, goiter, pain and significant neck swelling RESPIRATORY: Negative for cough, hemoptysis, wheezing, COPD, dyspnea or shortness of breath CARDIOVASCULAR: Negative for chest pain, leg swelling, hypertension, CHF or palpitations GI: No nausea, vomiting, or diarrhea, No heartburn or reflux symptoms, and no blood : No history of dysuria, frequency or blood. MUSCULOSKELETAL: having the pain in his neck and issues with radicular symptoms in the arms. Low back is painful at times and hip's (Lt>Rt). May be having lumbar surgery in the future. SKIN: Negative for lesions, rash, and itching PSYCH: Negative for sleep disturbance, mood disorder. Some stress with the neck issues. HEMATOLOGY/LYMPHOLOGY: Negative for prolonged bleeding, bruising easily or swollen nodes ENDOCRINE: Negative for cold or heat intolerance, polyuria, polydipsia and goiter NEURO: No history of headaches, syncope, paralysis, seizures or tremors EXAM: BP 122/70 (BP Site: Left Arm, BP Position: Sitting, BP Cuff Size: Large Adult) Pulse 82 Resp 18 Wt 127 kg (280 lb) BMI 40.76 kg/m Last 5 Encounter Wt Readings: Date: Wt: 02/21/2024 127 kg (280 lb) 02/16/2024 126.7 kg (279 lb 4.8 oz) 02/16/2024 126.6 kg (279 lb 1.6 oz) 01/19/2024 124.3 kg (274 lb) 12/15/2023 127 kg (279 lb 15.8 oz) General Appearance: Well appearing, alert, in no acute distress, well-hydrated, well nourished. and Morbidly obese. Skin: Skin color, texture, turgor normal, no suspicious rashes or lesions. Head: Normocephalic, no masses, lesions, tenderness or abnormalities. Eyes: Anicteric sclera. Pupils are equally round and reactive to light. Extraocular movements are intact. . Ears: External ears, TM's normal, canals clear. Nose/Sinuses: Nares normal, septum midline, mucosa normal, no drainage or sinus tenderness. Oropharynx: Lips, mucosa, and tongue normal, teeth and gums normal, oropharynx normal. Neck: Supple, no adenopathy; thyroid symmetric, normal size, no bruits. Lungs: Lungs clear to auscultation. No wheezing, rhonchi, rales.. Heart: RRR without murmur, gallop, or rubs. No ectopy. Abdomen: Normal abdominal exam, Abdomen soft, non-tender. Bowel sounds normal. No masses, organomegaly. Extremities: No deformities, edema, skin discoloration, Good capillary refill. . Musculoskeletal: Muscular strength intact, No joint swelling, deformity, or tenderness. Peripheral Pulses: Normal. Neurologic: Gait normal. Reflexes normal and symmetric. Sensation to light touch and crainal nerves 2-12 intact.. Genitalia: Normal, Penis normal. No urethral discharge. Scrotum normal to palpation. No hernia.. Rectal: Normal exam. Health Maintenance List Shingrix Vaccine(1 of 2) Never done Covid-19 Vaccine( season) due on 04/30/2023 Behavioral Health Screening Never done BP Controlled (<130/80) due on 11/06/2023 Influenza Vaccine(Season Ended) due on 04/30/2024 DTaP,Tdap,Td Vaccine(2 - Td or Tdap) due on 06/28/2024 Annual PCP Team Chronic Disease Visit due on 01/18/2025 Diabetes Screening due on 02/15/2027 Lipid Screening due on 10/05/2027 Colorectal Cancer Screening due on 02/04/2028 Hepatitis C Screening Completed HIV Screening Completed Hepatitis B Vaccine Discontinued Data reviewed EKG done 02/16/2024 showed NSR with nonspecific T wave abnormality. When compared to EKG from 10/06/2022 there was no changes. Latest Ref Rng 10/05/2022 04/08/2023 02/16/2024 WBC 3.70 - 11.00 k/uL 11.66 (H) 8.46 RBC 4.20 - 6.00 m/uL 5.06 4.75 Hemoglobin 13.0 - 17.0 g/dL 17.1 (H) 15.9 Hematocrit 39.0 - 51.0 % 49.2 46.6 MCV 80.0 - 100.0 fL 97.2 98.1 MCH 26.0 - 34.0 pg 33.8 33.5 MCHC 30.5 - 36.0 g/dL 34.8 34.1 RDW-CV 11.5 - 15.0 % 11.8 12.0 Platelet Count 150 - 400 k/uL 271 282 MPV 9.0 - 12.7 fL 10.4 10.5 Neut% % 67.1 Abs Neut (ANC) 1.45 - 7.50 k/uL 7.82 (H) Lymph% % 25.3 Abs Lymph 1.00 - 4.00 k/uL 2.95 Banner% % 5.6 Abs Banner <0.87 k/uL 0.65 Eosin% % 0.4 Abs Eosin <0.46 k/uL 0.05 Baso% % 0.7 Abs Baso <0.11 k/uL 0.08 Immature Gran % % 0.9 IMMATURE GRANS (ABS) <0.10 k/uL 0.11 (H) NRBC /100 WBC 0.0 Absolute nRBC <0.01 k/uL <0.01 <0.01 DTYPE Auto Protein, Total 6.3 - 8.0 g/dL 7.6 7.3 7.4 Albumin 3.9 - 4.9 g/dL 4.6 4.5 4.4 Calcium 8.5 - 10.2 mg/dL 9.7 10.2 10.9 (H) Bilirubin, Total 0.2 - 1.3 mg/dL 1.8 (H) 0.7 0.9 Alkaline Phosphatase 38 - 113 U/L 96 73 93 AST 14 - 40 U/L 59 (H) 42 (H) 83 (H) ALT 10 - 54 U/L 43 53 92 (H) Glucose 74 - 99 mg/dL 140 (H) 106 (H) 104 (H) BUN 9 - 24 mg/dL 10 19 13 Creatinine 0.73 - 1.22 mg/dL 1.27 (H) 1.42 (H) 1.36 (H) Sodium 136 - 144 mmol/L 133 (L) 130 (L) 134 (L) Potassium 3.7 - 5.1 mmol/L 3.9 4.2 4.3 Chloride 98 - 107 mmol/L 97 94 (L) 99 CO2 22 - 30 mmol/L 25 24 23 Anion Gap 8 - 15 mmol/L 11 12 12 eGFR >=60 mL/min/1.73m 69 60 63 Total Cholesterol, Nonfasting <200 mg/dL 297 (H) Triglycerides, Nonfasting <150 mg/dL 652 (H) HDL Cholesterol, Nonfasting >39 mg/dL 46 LDL Cholesterol, Nonfasting -- Non HDL Cholesterol, Nonfasting <130 mg/dL 251 (H) VLDL Cholesterol, Nonfasting -- Total Chol/HDL Ratio, Nonfasting <5.10 mg/dL 6.46 (H) LDL/HDL Ratio, Nonfasting -- Hemoglobin A1C 4.3 - 5.6 % 5.4 6.4 (H) Estimated Average Glucose mg/dL 108 137 A/P ASSESSMENT/PLAN: 1. Well adult exam - ICD9: V70.0, ICD10: Z00.00 (primary diagnosis) - Counseled on healthy diet and regular exercise - Discussed need for and benefit of weight loss. BMI 40.76 kg/(m^2) - Follow up for annual exam in one year - advised on shingrix vaccine. 2. Pre-op examination - ICD9: V72.84, ICD10: Z01.818 Per the ACC/AHA Classification of Surgical Risk this is a Moderate risk surgery. Per the Guy's Simple Cardiovascular Risk Index the patient has a 0.4% cardiac risk. Patient has a mod to excellent functional capacity and does not need further cardiac work up. Patient is clear medically to proceed with surgery. 3. Spinal stenosis of cervical region - ICD9: 723.0, ICD10: M48.02 - patient scheduled to have surgery on 03/03/2024 4. Hypertension, essential - ICD9: 401.9, ICD10: I10 - Controlled - Continue current medications - Recommend home blood pressure monitoring, to bring results to next visit - Encouraged sodium restriction, DASH or Mediterranean diet - Recommend regular aerobic exercise - Discussed need for and benefit of weight loss. BMI 40.76 kg/(m^2) - LIPID PANEL, NONFASTING 5. Mixed hyperlipidemia - ICD9: 272.2, ICD10: E78.2 - await labs - Counseled on healthy diet and regular exercise - Discussed need for and benefit of weight loss. BMI 40.76 kg/(m^2) - LIPID PANEL, NONFASTING 6. Agoraphobia - ICD9: 300.22, ICD10: F40.00 - clinically stable not needing meds. 7. Situational anxiety - ICD9: 300.09, ICD10: F41.8 - as per #6 8. Metabolic dysfunction-associated steatohepatitis (MASH) - ICD9: 571.8, ICD10: K75.81 FIB-4 Calculation: 1.56 at 02/16/2024 1:25 PM Calculated from: SGOT/AST: 83 U/L at 02/16/2024 1:25 PM SGPT/ALT: 92 U/L at 02/16/2024 1:25 PM Platelets: 282 k/uL at 02/16/2024 1:25 PM Age: 53 years Patient to work and weight loss. If still elevated in a year will get US with elastography. 9. LVH (left ventricular hypertrophy) - ICD9: 429.3, ICD10: I51.7 - seeing cardio for management. Clinically stable 10. Morbid obesity (HCC) - ICD9: 278.01, ICD10: E66.01 Weight increasing - Behavioral intervention 11. Screening for prostate cancer - ICD9: V76.44, ICD10: Z12.5 Check - PROSTATE-SPECIFIC ANTIGEN DIAGNOSTIC 12. Hypercalcemia - ICD9: 275.42, ICD10: E83.52 Check - CALCIUM, TOTAL - PTH INTACT 13. Elevated hemoglobin A1c - ICD9: 790.29, ICD10: R73.09 - discussed life style changes for improved control. 14. ED (erectile dysfunction) of organic origin - ICD9: 607.84, ICD10: N52.9 - since Cialis not working as well will trial Viagra 100 mg prn. Requested Prescriptions Signed Prescriptions Disp Refills sildenafil (VIAGRA) 100 mg tablet 30 tablet 3 Sig: Take 1 tablet by mouth once daily as needed. Take 30-60 minutes before sexual activity. F/u 6 months routine check Lipid, CMP, A1c prior Patient was asked at end of visit if they had any questions or input regarding the plan of care we had discussed. Colton Rosario MD documented in this encounter [facility] 02-21-2024 Note HNO ID: [id number] Author: COLTON ROSARIO MD Service: ? Author Type: Physician Type: Progress Notes Filed: 02/21/2024 15:52 Note Text: Chief Complaint Patient presents with: Physical HPI Jason Moore is a 53 year old male who presents here today for Physical/pre op. PMHx: HTN, high cholesterol, impaired fasting glucose, obesity, tobacco use and alcohol use. Procedure: ARTHRODESIS CERVICAL POSTERIOR, BELOW C2 1ST SINGLE LEVEL with Surgeon Dr. Pelon Greenfield on 03/03/2024 No new issues or concerns. Patient can walk a flight of stairs and push a piece of furniture without chest pain. Past medical history, appointments, medications, allergies reviewed. Previous Medical History PAST MEDICAL HISTORY Diagnosis Date Abnormal echocardiogram 02/16/2024 Alcohol use 07/10/2016 3-5 day Back pain Cervical radiculopathy 12/16/2020 Fatty liver 03/28/2016 Former smoker 02/16/2024 Heart rate fast on BB Hypertension Hypertension, essential 06/28/2014 LVH (left ventricular hypertrophy) 11/05/2022 With grade 1 Solomon dysfunction. Mixed hyperlipidemia 06/28/2014 Morbid obesity (HCC) 02/16/2024 Obesity, Class II, BMI 35-39.9 12/16/2020 JOSELITO (obstructive sleep apnea) resolved with weight loss Spinal stenosis in cervical region Tachycardia, unspecified on BB Previous Surgical History PAST SURGICAL HISTORY Procedure Laterality Date ALLOGRAFT FOR SPINE SURGERY ONLY STRUCTURAL 08/30/2011 FUSION AND REPLACED DISC lumbar ANTERIOR INSTRUMENTATION 2-3 VERTEBRAL SEGMENTS APPL-INTERVERTEBRAL BIOMECHANICAL DEVICES COLONOSCOPY FLX DX W/COLLJ SPEC WHEN PFRMD 09/28/2014 Colonoscopy, repeat 5 yrs PAST SURGICAL HISTORY OF back injections and disc biopsy PAST SURGICAL HISTORY OF 06/17/2021 C5-C6, C6-C7 anterior cervical discectomy and fusion, Insertion of intervertebral interbody device at C5-C6, C6-C7, anterior spinal instrumentation C5-C7, Use of structural allograft Family History FAMILY HISTORY Problem Relation Age of Onset Colon Cancer Father 50 Diabetes Father Hypertension Father Prostate Cancer Father 54 Colon Cancer Paternal Grandfather Diabetes Paternal Grandfather Prostate Cancer Paternal Grandfather 50'S Hypertension Paternal Grandmother Coronary Artery Disease Maternal Aunt Hypertension Maternal Aunt Hypertension Maternal Aunt Diabetes Paternal Aunt Hypertension Paternal Aunt Colon Cancer Paternal Uncle LATE 50'S Diabetes Paternal Uncle Hypertension Paternal Uncle Prostate Cancer Paternal Uncle 50'S Anesthesia Problems No Family History Patient Allergies ALLERGIES Allergen Reactions Ativan [Lorazepam] GI Upset Paxil [Paroxetine H* GI Upset diarrhea Zoloft [Sertraline] GI Upset Current Medications Current Outpatient Medications on File Prior to Visit Medication Sig varenicline (CHANTIX STARTING MONTH BOX) 0.5 mg (11)- 1 mg (42) tablet Take 0.5 mg by mouth once daily on Days 1 through 3, THEN 0.5 mg twice daily on Days 4 through 7, THEN 1 mg twice daily on Day 8 and thereafter varenicline (CHANTIX CONTINUING MONTH BOX) 1 mg tablet Take 1 tablet by mouth two times a day with meals. Start the month after the starter pack amLODIPine (NORVASC) 10 mg tablet Take 1 tablet by mouth once daily. lisinopril (ZESTRIL) 40 mg tablet Take 1 tablet by mouth once daily. hydroCHLOROthiazide 25 mg tablet Take 1 tablet by mouth once daily. gabapentin (NEURONTIN) 300 mg capsule Take 1 capsule by mouth daily at bedtime. For 3 days and then one twice a day for three days and then one three times a day as tolerated. Tadalafil (CIALIS) 20 mg tablet Take 1 tablet by mouth once daily. As needed. No current facility-administered medications on file prior to visit. Social History Social History Tobacco Use Smoking status: Former Packs/day: 0.50 Years: 21.00 Additional pack years: 0.00 Total pack years: 10.50 Types: Cigarettes Quit date: 01/14/2024 Years since quittin.1 Smokeless tobacco: Never Vaping Use Vaping Use: Never used Substance Use Topics Alcohol use: Yes Alcohol/week: 12.0 standard drinks of alcohol Types: 12 Cans of Beer (12oz) per week Comment: x 1 day ago, 2 cocktails and beer Drug use: Never Review of Symptoms REVIEW OF SYSTEMS GENERAL: No weight loss, malaise or fevers HEENT: Negative for frequent or significant headaches, No changes in hearing or vision, no nose bleeds or other nasal problems NECK: Negative for lumps, goiter, pain and significant neck swelling RESPIRATORY: Negative for cough, hemoptysis, wheezing, COPD, dyspnea or shortness of breath CARDIOVASCULAR: Negative for chest pain, leg swelling, hypertension, CHF or palpitations GI: No nausea, vomiting, or diarrhea, No heartburn or reflux symptoms, and no blood : No history of dysuria, frequency or blood. MUSCULOSKELETAL: having the pain in his neck and issues with radicular symptoms in the arms. Low javi (more content not included)... [facility] 02-16-2024 Telephone encounter Note Lelia I have sent 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 Dunn for clearance prior to upcoming procedure. Can you please call to make sure this fax was received, and assist in follow-up? Thank you. Claus Hinton PA-C [facility] 02-16-2024 Instructions Claus Hinton PA-C - 02/16/2024 12:45 PM EDT PATIENT PREOPERATIVE INSTRUCTIONS No ref. provider found has scheduled you for your procedure at this surgery center: [facility] [place] Scheduling Office: [phone] --[address] [place] [address]. Please read below carefully for your personalized instructions. Dietary Restrictions: - No solid food after midnight. - You may have 12 ounces of clear liquids (water, clear juices such as apple juice or gatorade, carbonated beverages, clear tea, black coffee, jello) until 2 hours before scheduled arrival at facility. Medications: Unless instructed differently below, stay on all of your medications until your surgery. If you start any new medications after today's visit, please contact your surgeon. Pre-Surgery Med Instructions Medication Instructions amLODIPine (NORVASC) 10 mg tablet Take the day of surgery with a small sip of water lisinopril (ZESTRIL) 40 mg tablet Do not take for 24 hours prior to surgery hydroCHLOROthiazide 25 mg tablet Do not take the day of surgery gabapentin (NEURONTIN) 300 mg capsule Take the day of surgery with a small sip of water If you take any medications for erectile dysfunction-Cialis (Tadalafil), Levitra, Staxyn (Vardenafil) Viagra (Sildenenafil please do not take these for 48 hours before surgery. If you start any new medications after today's visit, please contact the surgeon's office. Blood Thinning Medications: - Stop NSAIDS (Ibuprofen, Advil, Aleve, Motrin, Celebrex, Mobic, etc.) 7 days before surgery, as directed by your surgeon. - Stop Aspirin 7 days before surgery, as directed by your surgeon. - Stop Vitamin E, ALL multi-vitamins, herbals and dietary supplements 7 days before surgery. - You may take Tylenol (Acetaminophen) or any of your pain medications that do not contain aspirin or NSAIDS as needed. Important Reminders: - Candy, mints, and tobacco products are NOT permitted the morning of surgery. - Hearing aids, dentures and glasses may be worn the morning of surgery. - NO jewelry, body piercings, makeup, hairpins or contacts are to be worn the day of surgery. If you develop symptoms such as a fever, cold, or flu, or have other changes to your health within TWO DAYS of scheduled surgery or the morning of surgery, please contact the surgery center above. Personal Belongings: -Please have photo ID and insurance cards. -If you do not have a copy of advance directives on file with us, please bring a copy with you on the day of surgery. - Leave ALL valuables and money at home or with family members. For Outpatient Procedures: - YOU MUST HAVE A RESPONSIBLE JUNIOR PROJECT COORDINATOR TAKE YOU HOME. A ADJUNCT MATHEMATICS INSTRUCTOR OR MONEY COUNTER CANNOT BE MADE A RESPONSIBLE JUNIOR PROJECT COORDINATOR. - We recommend that a responsible person stays with you overnight to take care of you. - You cannot stay in a hotel alone after outpatient surgery. You will not be permitted to have your surgery, if you do not have someone to take care of you. Arrival Time for Surgery: - To obtain your arrival time for surgery, call your physician's office the day before your surgery. - If your surgery is scheduled for Wednesday, call the Wednesday before. Your surgeon s unloader will tell you what time to call the office. - If you have not reached the departmental unloader by 5 P.M., call [phone] after 5 P.M. the day before your surgery. Please be aware that emergency situations arise, which may delay or change your surgical time. If this happens, we will notify you as soon as possible and regret any inconvenience. If you already have an Advance Directive, please fax a copy to [phone] or email to for it to be added to your chart. If you do not have an Advance Directive, you can find the appropriate form and more information at [email or web address]. We recommend that you complete the Advance Directive form found on the website and bring it with you the day of your surgery. It can be witnessed and scanned into your chart that day. Claus Hinton PA-C documented in this encounter [facility] 02-16-2024 History and physical note Images from the original note were not included. HISTORY AND PHYSICAL EXAMINATION SERVICE DATE: 02/16/2024 SERVICE TIME: 12:35 PM PRIMARY CARE PHYSICIAN: Colton Rosario MD Assessment Patient has the following medical conditions which may affect marlena-operative course: LVH (left ventricular hypertrophy) -Per echo 10/13/22 severe concentric LVH Stage 1 diastolic dysfunction -Patient with >4 METS, denies cardiac symptoms -EKG pending Hypertension, essential -Managed on amlodipine, lisinopril, hctz -BP today 145/78 -Denies cardiac symptoms -EKG pending Former smoker -Recently quit smoking 01/14/24 -Smoked 1/2 PPD for 21 years Morbid obesity (HCC) -Body mass index is 40.63 kg/m . JOSELITO (obstructive sleep apnea) -Patient denies, resolved with weight loss, does not use CPAP Abnormal echocardiogram -Reviewed echo from 10/13/22 Apical scaring noted on the myocardial strain pattern. Cannot completely exclude amyloid. The global longitudinal strain is severely abnormal. -Patient follows OP with highway engineering teacher Dr. Dunn of [facility], OV with physician on 12/17/22 We will consider obtaining a technetium PYP scan to exclude amyloid. I would recommend that we screen him for cardiac amyloid. -Most recent OV with Rachel Chinchilla PA-C on 06/15/23, does not appear that patient was yet worked up for amyloid. Called cardiology office, spoke with staff and no imaging found. -Will send optimization request to Dr. Dunn's office. Dang Activity Status Index: METS: Walk indoors, such as around the house (1.75 METs) Do light work around the house, such as dusting or washing dishes (2.70 METs) Take care of self; that is eating, dressing, bathing, using the toilet (2.75 METs) Walk a block or two on level ground (2.75 METs) Do moderate work around the house, such as vacuuming, sweeping floors, or carrying in groceries (3.50 METs) Do yardwork, such as raking leaves, weeding, or pushing a power mower (4.50 METs) Climb a flight of stairs or walk up a hill (5.50 METs) DASI Score: 23.45 (Limited with neck pain/neuropathy) Patient denies any chest pain or undue shortness of breath with the above physical activity. Clinical Frailty Scale: 3. Well, with treated comorbid disease STOP-Bang Score: Has or is being treated for high blood pressure BMI greater than 35 kg/m^2 Patient over 50 years old Has a large neck Male patient Denies snoring loudly Denies feeling tired, fatigued, or sleepy during the daytime Has not been observed to stop breathing or choking/gasping during sleep STOP-Bang Score: 5 ANESTHESIA FINDINGS: Intubation History: No history of difficult intubation Significant Anesthesia Considerations: none Airway History: No history of difficult airway I - PHYSICAL EVALUATION AIRWAY Patient intubated: No. Tracheostomy tube not present Mallampati: IV. TM distance: <3 FB. Neck ROM: full ROM without neurological symptoms. Mouth opening: non-adequate. Short neck: no. Thick neck: yes Fernandez present: yes Lip Bite Test: II Microretrognathia/Micronagthia/R ecessed Chin: No DENTAL Dental findings: teeth intact. Additional comments: +cap upper left. II - ANESTHESIA PLAN Anesthetic plan additional comments: *PACC/TCI - anesthesia choice. Beta Bhavin Monitoring Plan Post Procedure Analgesic Plan Prepared for Surgery: optimally prepared for surgery, pending [see comment]. Pending EKG, labs Pending cardiac clearance CONSULTS: The following consults have been initiated at this time: anesthesia (reviewed echo results with staff anesthesiologist Dr. Lexi Tavera, cardiac clearance is requested) and cardiology (letter faxed to Dr. Dunn). Planned Anesthetic: anesthesia choice The Following Tests/Procedures Have Been Initiated: Orders Placed This Encounter Comprehensive Metabolic Panel Standing Status: Future Number of Occurrences: 1 Standing Expiration Date: 05/17/2024 Complete Blood Count Standing Status: Future Number of Occurrences: 1 Standing Expiration Date: 05/17/2024 Type and Screen Standing Status: Future Number of Occurrences: 1 Standing Expiration Date: 05/17/2024 ECG (FUTURE) Standing Status: Future Number of Occurrences: 1 Standing Expiration Date: 02/15/2025 REASON FOR VISIT: Jason Moore is a 53 year old male who is scheduled for Procedure(s): ARTHRODESIS CERVICAL POSTERIOR, BELOW C2 1ST SINGLE LEVEL (N/A) ARTHRODESIS CERVICAL BELOW C2, 2ND CERVICAL LEVEL (N/A) POSTERIOR SEGMENTAL INSTRUMENTATION FOLLOWING CERVICAL FUSION 3-6 LEVELS (N/A) at the request of Pelon García MD for consultation. My final recommendation will be communicated back to the requesting physician by way of shared medical record or letter. Subjective The patient has the following: ACTIVE PROBLEM LIST Left-Sided Low Back Pain Without Sciatica Hypertension, Essential Mixed Hyperlipidemia Well Adult Exam Neurofibroma Family History of Colon Cancer Agoraphobia Situational Anxiety Fatty Liver Elevated Lfts Chronic Bilateral Low Back Pain Without Sciatica Prostate Cancer Screening Smoker Obesity, Class II, Bmi 35-39.9 Abdulaziz (Generalized Anxiety Disorder) Spinal Stenosis of Cervical Region Joselito (Obstructive Sleep Apnea) H/O Cervical Spine Surgery Lvh (Left Ventricular Hypertrophy) Ed (Erectile Dysfunction) of Organic Origin Ddd (Degenerative Disc Disease), Lumbar Mass of Soft Tissue of Forearm Hand Numbness Former Smoker Morbid Obesity (Hcc) Abnormal Echocardiogram COVID-19 Immunization Status Overdue - Covid-19 Vaccine () Overdue since 04/30/2023 12/19/2020 Imm Admin: COVID-19 original vaccine, full dose, monovalent (MODERNA) 11/21/2020 Imm Admin: COVID-19 original vaccine, full dose, monovalent (MODERNA) CHIEF COMPLAINT: Neck pain HPI: Jason Moore is a 53 year old male with PMH including HTN, morbid obesity, tobacco use, left ventricular hypertrophy who presents to [facility] today for preop exam. Patient is scheduled for the above procedure on 03/03/24. Patient reports right hand numbness and neck pain that is worsening and limiting his activity. Patient s/p cervical surgery in 2020. He had cervical injections prior to this without relief. He takes gabapentin, minimally relieves symptoms. Also has done multiple sessions of PT without relief. Denies fevers, chills, chest pain, and SOB. REVIEW OF SYSTEMS: General: Negative for: fever. Neurological: Negative for: seizures, TIA and strokes. Respiratory: Positive for: tobacco use (former smoker, quit 12/2023). Negative for: asthma, COPD, current cough, pneumonia within 6 weeks and URI < 2 weeks. Cardiovascular: Positive for: hypertension Negative for: arrhythmia, atrial fibrillation, CAD, chest pain, CHF, congenital heart defect, DVT/PE, hyperlipidemia, recent HI and murmur/valvular heart disease. GI: Negative for: abdominal pain, dysphagia, heartburn, hepatitis, liver disease, nausea and vomiting. : Negative for: on dialysis, dysuria, frequent urination, hematuria, nephrolithiasis and renal failure. Endocrine: Negative for: diabetes mellitus, hyperthyroidism, hypothyroidism and steroid for chronic problem. Hematology: No history of bleeding or clotting disorder. Patient is not taking anti-coagulation or platelet medications. No history of hematological symptoms or problems. Oncology: No history of CA metastasis, chemo within 30 days, or radiotherapy within 90 days. No history of oncological symptoms or problems. Musculoskeletal: See HPI. Skin: Negative for lesions, rash and itching. PAST MEDICAL HISTORY Diagnosis Date Abnormal echocardiogram 02/16/2024 Alcohol use 07/10/2016 3-5 day Back pain Cervical radiculopathy 12/16/2020 Fatty liver 03/28/2016 Former smoker 02/16/2024 Heart rate fast on BB Hypertension Hypertension, essential 06/28/2014 LVH (left ventricular hypertrophy) 11/05/2022 With grade 1 Solomon dysfunction. Mixed hyperlipidemia 06/28/2014 Morbid obesity (HCC) 02/16/2024 Obesity, Class II, BMI 35-39.9 12/16/2020 JOSELITO (obstructive sleep apnea) resolved with weight loss Spinal stenosis in cervical region Tachycardia, unspecified on BB PAST SURGICAL HISTORY Procedure Laterality Date ALLOGRAFT FOR SPINE SURGERY ONLY STRUCTURAL 08/30/2011 FUSION AND REPLACED DISC lumbar ANTERIOR INSTRUMENTATION 2-3 VERTEBRAL SEGMENTS APPL-INTERVERTEBRAL BIOMECHANICAL DEVICES COLONOSCOPY FLX DX W/COLLJ SPEC WHEN PFRMD 09/28/2014 Colonoscopy, repeat 5 yrs PAST SURGICAL HISTORY OF back injections and disc biopsy PAST SURGICAL HISTORY OF 06/17/2021 C5-C6, C6-C7 anterior cervical discectomy and fusion, Insertion of intervertebral interbody device at C5-C6, C6-C7, anterior spinal instrumentation C5-C7, Use of structural allograft FAMILY HISTORY Problem Relation Age of Onset Colon Cancer Father 50 Diabetes Father Hypertension Father Prostate Cancer Father 54 Colon Cancer Paternal Grandfather Diabetes Paternal Grandfather Prostate Cancer Paternal Grandfather 50'S Hypertension Paternal Grandmother Coronary Artery Disease Maternal Aunt Hypertension Maternal Aunt Hypertension Maternal Aunt Diabetes Paternal Aunt Hypertension Paternal Aunt Colon Cancer Paternal Uncle LATE 50'S Diabetes Paternal Uncle Hypertension Paternal Uncle Prostate Cancer Paternal Uncle 50'S Anesthesia Problems No Family History Social History Tobacco Use Smoking status: Former Packs/day: 0.50 Years: 21.00 Additional pack years: 0.00 Total pack years: 10.50 Types: Cigarettes Quit date: 01/14/2024 Years since quittin.0 Smokeless tobacco: Never Vaping Use Vaping Use: Never used Substance Use Topics Alcohol use: Yes Alcohol/week: 12.0 standard drinks of alcohol Types: 12 Cans of Beer (12oz) per week Comment: x 1 day ago, 2 cocktails and beer Drug use: Never Prior to Admission medications as of 02/16/24 1236 Medication Sig Last Dose Taking amLODIPine (NORVASC) 10 mg tablet Take 1 tablet by mouth once daily. Taking Yes lisinopril (ZESTRIL) 40 mg tablet Take 1 tablet by mouth once daily. Taking Yes hydroCHLOROthiazide 25 mg tablet Take 1 tablet by mouth once daily. Taking Yes gabapentin (NEURONTIN) 300 mg capsule Take 1 capsule by mouth daily at bedtime. For 3 days and then one twice a day for three days and then one three times a day as tolerated. Taking Yes varenicline (CHANTIX STARTING MONTH BOX) 0.5 mg (11)- 1 mg (42) tablet Take 0.5 mg by mouth once daily on Days 1 through 3, THEN 0.5 mg twice daily on Days 4 through 7, THEN 1 mg twice daily on Day 8 and thereafter varenicline (CHANTIX CONTINUING MONTH BOX) 1 mg tablet Take 1 tablet by mouth two times a day with meals. Start the month after the starter pack Tadalafil (CIALIS) 20 mg tablet Take 1 tablet by mouth once daily. As needed. No medication comments found. ALLERGIES Allergen Reactions Ativan [Lorazepam] GI Upset Paxil [Paroxetine H* GI Upset diarrhea Zoloft [Sertraline] GI Upset Objective PHYSICAL EXAM: General: alert and oriented, healthy appearance and morbidly obese. Skin: normal color, no rash or lesions. HEENT: EOM intact. Pertinent negatives noted - no carotid bruit. Cardiovascular: regular rate and rhythm, normal S1 and S2, no rub, murmurs, or gallop. Respiratory: normal breath sounds, no wheezes or crackles. No chest wall deformity or tenderness. Abdomen: bowel sounds present. Extremities: no deformity, no edema or tenderness, no joint swelling or clubbing. Neurological: normal cognition and motor skills. Gait normal. No weakness or sensory deficit. PAIN ASSESSMENT: Pain Pain Level: 4 Pain Location: Neck-Posterior Description: Aching, Dull Duration Amount of Time: 1 Duration Units: Years Frequency: Continuous Intervention/Comfort measure: Declined VITALS: BP 145/78 Pulse 97 Temp (Src) 98 (Temporal) Resp 20 Ht 5' 9.5 (1.77m) Wt 279 lb 1.6 oz (126.6kg) SpO2 99% BMI 40.64 kg/(m^2). Diagnostic tests reviewed for today's visit: Lab Value Units Date High Low HB 15.9 g/dL 02/16/2024 17.0 13.0 HCT 46.6 % 02/16/2024 51.0 39.0 WBC 8.46 k/uL 02/16/2024 11.00 3.70 PLT 282 k/uL 02/16/2024 400 150 NA No results within date range. K No results within date range. GLUC No results within date range. BUN No results within date range. CREAT No results within date range. PTSEC No results within date range. INR No results within date range. APTT No results within date range. ALT No results within date range. AST No results within date range. TBILI No results within date range. TSH No results within date range. Lab Value Units Date High Low HCGQT No results within date range. UHCG No results within date range. HCG, BODY* No results within date range. Lab Value Units Date High Low ABORHD No results within date range. ABSCREEN No results within date range. Hemoglobin A1C (%) Date Value 10/05/2022 5.4 03/12/2020 5.4 Recent Results (from the past 8760 hour(s)) ECG COMPLETE Collection Time: 02/16/24 1:19 PM Result Value Ventricular Rate 88 Atrial Rate 88 P-R Interval 166 QRS Duration 90 QT Interval 364 QTC Calculation (Bazett) 440 Calculated P Noel 40 Calculated R Noel -7 Calculated T Noel 72 Impression NORMAL SINUS RHYTHM NONSPECIFIC T WAVE ABNORMALITY ABNORMAL ECG No results found for this or any previous visit (from the past 46139 hour(s)). 10/13/22 echo results Instructions Given to Patient: Instructions located in the after visit summary. Patient given verbal and written preop instructions and voices comprehension and compliance. SIGNATURE: Claus Hinton PA-C PATIENT NAME: Jason Moore DATE: February 16, 2024 TIME: 12:35 PM PAGER/CONTACT #: [facility] 02-16-2024 History and physical note Images from the original note were not included. HISTORY AND PHYSICAL EXAMINATION SERVICE DATE: 02/16/2024 SERVICE TIME: 12:35 PM PRIMARY CARE PHYSICIAN: Colton Rosario MD Assessment Patient has the following medical conditions which may affect marlena-operative course: LVH (left ventricular hypertrophy) -Per echo 10/13/22 severe concentric LVH Stage 1 diastolic dysfunction -Patient with >4 METS, denies cardiac symptoms -EKG pending Hypertension, essential -Managed on amlodipine, lisinopril, hctz -BP today 145/78 -Denies cardiac symptoms -EKG pending Former smoker -Recently quit smoking 01/14/24 -Smoked 1/2 PPD for 21 years Morbid obesity (HCC) -Body mass index is 40.63 kg/m . JOSELITO (obstructive sleep apnea) -Patient denies, resolved with weight loss, does not use CPAP Abnormal echocardiogram -Reviewed echo from 10/13/22 Apical scaring noted on the myocardial strain pattern. Cannot completely exclude amyloid. The global longitudinal strain is severely abnormal. -Patient follows OP with highway engineering teacher Dr. Dunn of [facility], OV with physician on 12/17/22 We will consider obtaining a technetium PYP scan to exclude amyloid. I would recommend that we screen him for cardiac amyloid. -Most recent OV with Rachel Chinchilla PA-C on 06/15/23, does not appear that patient was yet worked up for amyloid. Called cardiology office, spoke with staff and no imaging found. -Will send optimization request to Dr. Dunn's office. Dang Activity Status Index: METS: Walk indoors, such as around the house (1.75 METs) Do light work around the house, such as dusting or washing dishes (2.70 METs) Take care of self; that is eating, dressing, bathing, using the toilet (2.75 METs) Walk a block or two on level ground (2.75 METs) Do moderate work around the house, such as vacuuming, sweeping floors, or carrying in groceries (3.50 METs) Do yardwork, such as raking leaves, weeding, or pushing a power mower (4.50 METs) Climb a flight of stairs or walk up a hill (5.50 METs) DASI Score: 23.45 (Limited with neck pain/neuropathy) Patient denies any chest pain or undue shortness of breath with the above physical activity. Clinical Frailty Scale: 3. Well, with treated comorbid disease STOP-Bang Score: Has or is being treated for high blood pressure BMI greater than 35 kg/m^2 Patient over 50 years old Has a large neck Male patient Denies snoring loudly Denies feeling tired, fatigued, or sleepy during the daytime Has not been observed to stop breathing or choking/gasping during sleep STOP-Bang Score: 5 ANESTHESIA FINDINGS: Intubation History: No history of difficult intubation Significant Anesthesia Considerations: none Airway History: No history of difficult airway I - PHYSICAL EVALUATION AIRWAY Patient intubated: No. Tracheostomy tube not present Mallampati: IV. TM distance: <3 FB. Neck ROM: full ROM without neurological symptoms. Mouth opening: non-adequate. Short neck: no. Thick neck: yes Fernandez present: yes Lip Bite Test: II Microretrognathia/Micronagthia/R ecessed Chin: No DENTAL Dental findings: teeth intact. Additional comments: +cap upper left. II - ANESTHESIA PLAN Anesthetic plan additional comments: *P[facility]/TCI - anesthesia choice. Beta Bhavin Monitoring Plan Post Procedure Analgesic Plan Prepared for Surgery: optimally prepared for surgery, pending [see comment]. Pending EKG, labs Pending cardiac clearance CONSULTS: The following consults have been initiated at this time: anesthesia (reviewed echo results with staff anesthesiologist Dr. Lexi Tavera, cardiac clearance is requested) and cardiology (letter faxed to Dr. Dunn). Planned Anesthetic: anesthesia choice The Following Tests/Procedures Have Been Initiated: Orders Placed This Encounter Comprehensive Metabolic Panel Standing Status: Future Number of Occurrences: 1 Standing Expiration Date: 05/17/2024 Complete Blood Count Standing Status: Future Number of Occurrences: 1 Standing Expiration Date: 05/17/2024 Type and Screen Standing Status: Future Number of Occurrences: 1 Standing Expiration Date: 05/17/2024 ECG (FUTURE) Standing Status: Future Number of Occurrences: 1 Standing Expiration Date: 02/15/2025 REASON FOR VISIT: Jason Moore is a 53 year old male who is scheduled for Procedure(s): ARTHRODESIS CERVICAL POSTERIOR, BELOW C2 1ST SINGLE LEVEL (N/A) ARTHRODESIS CERVICAL BELOW C2, 2ND CERVICAL LEVEL (N/A) POSTERIOR SEGMENTAL INSTRUMENTATION FOLLOWING CERVICAL FUSION 3-6 LEVELS (N/A) at the request of Pelon García MD for consultation. My final recommendation will be communicated back to the requesting physician by way of shared medical record or letter. Subjective The patient has the following: ACTIVE PROBLEM LIST Left-Sided Low Back Pain Without Sciatica Hypertension, Essential Mixed Hyperlipidemia Well Adult Exam Neurofibroma Family History of Colon Cancer Agoraphobia Situational Anxiety Fatty Liver Elevated Lfts Chronic Bilateral Low Back Pain Without Sciatica Prostate Cancer Screening Smoker Obesity, Class II, Bmi 35-39.9 Abdulaziz (Generalized Anxiety Disorder) Spinal Stenosis of Cervical Region Joselito (Obstructive Sleep Apnea) H/O Cervical Spine Surgery Lvh (Left Ventricular Hypertrophy) Ed (Erectile Dysfunction) of Organic Origin Ddd (Degenerative Disc Disease), Lumbar Mass of Soft Tissue of Forearm Hand Numbness Former Smoker Morbid Obesity (Hcc) Abnormal Echocardiogram COVID-19 Immunization Status Overdue - Covid-19 Vaccine ( season) Overdue since 04/30/2023 12/19/2020 Imm Admin: COVID-19 original vaccine, full dose, monovalent (MODERNA) 11/21/2020 Imm Admin: COVID-19 original vaccine, full dose, monovalent (MODERNA) CHIEF COMPLAINT: Neck pain HPI: Jason Moore is a 53 year old male with PMH including HTN, morbid obesity, tobacco use, left ventricular hypertrophy who presents to [facility] today for preop exam. Patient is scheduled for the above procedure on 03/03/24. Patient reports right hand numbness and neck pain that is worsening and limiting his activity. Patient s/p cervical surgery in 2020. He had cervical injections prior to this without relief. He takes gabapentin, minimally relieves symptoms. Also has done multiple sessions of PT without relief. Denies fevers, chills, chest pain, and SOB. REVIEW OF SYSTEMS: General: Negative for: fever. Neurological: Negative for: seizures, TIA and strokes. Respiratory: Positive for: tobacco use (former smoker, quit 12/2023). Negative for: asthma, COPD, current cough, pneumonia within 6 weeks and URI < 2 weeks. Cardiovascular: Positive for: hypertension Negative for: arrhythmia, atrial fibrillation, CAD, chest pain, CHF, congenital heart defect, DVT/PE, hyperlipidemia, recent HI and murmur/valvular heart disease. GI: Negative for: abdominal pain, dysphagia, heartburn, hepatitis, liver disease, nausea and vomiting. : Negative for: on dialysis, dysuria, frequent urination, hematuria, nephrolithiasis and renal failure. Endocrine: Negative for: diabetes mellitus, hyperthyroidism, hypothyroidism and steroid for chronic problem. Hematology: No history of bleeding or clotting disorder. Patient is not taking anti-coagulation or platelet medications. No history of hematological symptoms or problems. Oncology: No history of CA metastasis, chemo within 30 days, or radiotherapy within 90 days. No history of oncological symptoms or problems. Musculoskeletal: See HPI. Skin: Negative for lesions, rash and itching. PAST MEDICAL HISTORY Diagnosis Date Abnormal echocardiogram 02/16/2024 Alcohol use 07/10/2016 3-5 day Back pain Cervical radiculopathy 12/16/2020 Fatty liver 03/28/2016 Former smoker 02/16/2024 Heart rate fast on BB Hypertension Hypertension, essential 06/28/2014 LVH (left ventricular hypertrophy) 11/05/2022 With grade 1 Solomon dysfunction. Mixed hyperlipidemia 06/28/2014 Morbid obesity (HCC) 02/16/2024 Obesity, Class II, BMI 35-39.9 12/16/2020 JOSELITO (obstructive sleep apnea) resolved with weight loss Spinal stenosis in cervical region Tachycardia, unspecified on BB PAST SURGICAL HISTORY Procedure Laterality Date ALLOGRAFT FOR SPINE SURGERY ONLY STRUCTURAL 08/30/2011 FUSION AND REPLACED DISC lumbar ANTERIOR INSTRUMENTATION 2-3 VERTEBRAL SEGMENTS APPL-INTERVERTEBRAL BIOMECHANICAL DEVICES COLONOSCOPY FLX DX W/COLLJ SPEC WHEN PFRMD 09/28/2014 Colonoscopy, repeat 5 yrs PAST SURGICAL HISTORY OF back injections and disc biopsy PAST SURGICAL HISTORY OF 06/17/2021 C5-C6, C6-C7 anterior cervical discectomy and fusion, Insertion of intervertebral interbody device at C5-C6, C6-C7, anterior spinal instrumentation C5-C7, Use of structural allograft FAMILY HISTORY Problem Relation Age of Onset Colon Cancer Father 50 Diabetes Father Hypertension Father Prostate Cancer Father 54 Colon Cancer Paternal Grandfather Diabetes Paternal Grandfather Prostate Cancer Paternal Grandfather 50'S Hypertension Paternal Grandmother Coronary Artery Disease Maternal Aunt Hypertension Maternal Aunt Hypertension Maternal Aunt Diabetes Paternal Aunt Hypertension Paternal Aunt Colon Cancer Paternal Uncle LATE 50'S Diabetes Paternal Uncle Hypertension Paternal Uncle Prostate Cancer Paternal Uncle 50'S Anesthesia Problems No Family History Social History Tobacco Use Smoking status: Former Packs/day: 0.50 Years: 21.00 Additional pack years: 0.00 Total pack years: 10.50 Types: Cigarettes Quit date: 01/14/2024 Years since quittin.0 Smokeless tobacco: Never Vaping Use Vaping Use: Never used Substance Use Topics Alcohol use: Yes Alcohol/week: 12.0 standard drinks of alcohol Types: 12 Cans of Beer (12oz) per week Comment: x 1 day ago, 2 cocktails and beer Drug use: Never Prior to Admission medications as of 02/16/24 1236 Medication Sig Last Dose Taking amLODIPine (NORVASC) 10 mg tablet Take 1 tablet by mouth once daily. Taking Yes lisinopril (ZESTRIL) 40 mg tablet Take 1 tablet by mouth once daily. Taking Yes hydroCHLOROthiazide 25 mg tablet Take 1 tablet by mouth once daily. Taking Yes gabapentin (NEURONTIN) 300 mg capsule Take 1 capsule by mouth daily at bedtime. For 3 days and then one twice a day for three days and then one three times a day as tolerated. Taking Yes varenicline (CHANTIX STARTING MONTH BOX) 0.5 mg (11)- 1 mg (42) tablet Take 0.5 mg by mouth once daily on Days 1 through 3, THEN 0.5 mg twice daily on Days 4 through 7, THEN 1 mg twice daily on Day 8 and thereafter varenicline (CHANTIX CONTINUING MONTH BOX) 1 mg tablet Take 1 tablet by mouth two times a day with meals. Start the month after the starter pack Tadalafil (CIALIS) 20 mg tablet Take 1 tablet by mouth once daily. As needed. No medication comments found. ALLERGIES Allergen Reactions Ativan [Lorazepam] GI Upset Paxil [Paroxetine H* GI Upset diarrhea Zoloft [Sertraline] GI Upset Objective PHYSICAL EXAM: General: alert and oriented, healthy appearance and morbidly obese. Skin: normal color, no rash or lesions. HEENT: EOM intact. Pertinent negatives noted - no carotid bruit. Cardiovascular: regular rate and rhythm, normal S1 and S2, no rub, murmurs, or gallop. Respiratory: normal breath sounds, no wheezes or crackles. No chest wall deformity or tenderness. Abdomen: bowel sounds present. Extremities: no deformity, no edema or tenderness, no joint swelling or clubbing. Neurological: normal cognition and motor skills. Gait normal. No weakness or sensory deficit. PAIN ASSESSMENT: Pain Pain Level: 4 Pain Location: Neck-Posterior Description: Aching, Dull Duration Amount of Time: 1 Duration Units: Years Frequency: Continuous Intervention/Comfort measure: Declined VITALS: BP 145/78 Pulse 97 Temp (Src) 98 (Temporal) Resp 20 Ht 5' 9.5 (1.77m) Wt 279 lb 1.6 oz (126.6kg) SpO2 99% BMI 40.64 kg/(m^2). Diagnostic tests reviewed for today's visit: Lab Value Units Date High Low HB 15.9 g/dL 02/16/2024 17.0 13.0 HCT 46.6 % 02/16/2024 51.0 39.0 WBC 8.46 k/uL 02/16/2024 11.00 3.70 PLT 282 k/uL 02/16/2024 400 150 NA No results within date range. K No results within date range. GLUC No results within date range. BUN No results within date range. CREAT No results within date range. PTSEC No results within date range. INR No results within date range. APTT No results within date range. ALT No results within date range. AST No results within date range. TBILI No results within date range. TSH No results within date range. Lab Value Units Date High Low HCGQT No results within date range. UHCG No results within date range. HCG, BODY* No results within date range. Lab Value Units Date High Low ABORHD No results within date range. ABSCREEN No results within date range. Hemoglobin A1C (%) Date Value 10/05/2022 5.4 03/12/2020 5.4 Recent Results (from the past 8760 hour(s)) ECG COMPLETE Collection Time: 02/16/24 1:19 PM Result Value Ventricular Rate 88 Atrial Rate 88 P-R Interval 166 QRS Duration 90 QT Interval 364 QTC Calculation (Bazett) 440 Calculated P Noel 40 Calculated R Noel -7 Calculated T Noel 72 Impression NORMAL SINUS RHYTHM NONSPECIFIC T WAVE ABNORMALITY ABNORMAL ECG No results found for this or any previous visit (from the past 36231 hour(s)). 10/13/22 echo results Instructions Given to Patient: Instructions located in the after visit summary. Patient given verbal and written preop instructions and voices comprehension and compliance. SIGNATURE: Claus Hinton PA-C PATIENT NAME: Jason Moore DATE: February 16, 2024 TIME: 12:35 PM PAGER/CONTACT #: documented in this encounter [facility] 02-16-2024 Note HNO ID: [id number] Author: PELON GREENFIELD MD Service: ? Author Type: Physician Type: Progress Notes Filed: 02/16/2024 12:02 Note Text: EST SURGERY/PROCEDURE DATE: 06/17/2021 SURGEON(S)/PROCEDURALIST(S) AND ROUTE JUMPER(S): Surgeon(s) and Role: * Flip Gonzalez MD - Primary * Doyle Patel MD - Resident - Assistin SURGERY/PROCEDURE(S): C5-C6, C6-C7 anterior cervical discectomy and fusion, Insertion of intervertebral interbody device at C5-C6, C6-C7, anterior spinal instrumentation C5-C7, Use of structural allograft. INSTRUMENTATION: 6mm structural allograft at C5-C6, C6-C7 with a K2M anterior plate. Neck pain: no Weakness: Yes, RUE weakness Arm pain: yes, RIGHT arm, C6 and C7 distribution Arm numbness: yes, RIGHT arm, C6 and C7 distribution Imbalance: no Hand dexterity loss: no OBJECTIVE: PHYSICAL EXAM: BP 141/85 Pulse 100 Resp 17 Ht 5' 9.5 (1.77m) Wt 279 lb 4.8 oz (126.7kg) SpO2 95% BMI 40.67 kg/(m2). GENERAL APPEARANCE: Well nourished, well developed, and no apparent distress. NEURO PSYCH: Patient oriented to person, place, and time. Mood pleasant. Benign affect. MUSCULOSKELETAL VISUAL INSPECTION CERVICAL: WNL THORACIC: WNL LUMBAR: WNL MOTOR: 5/5 in all muscle groups. SENSORY: Normal sensory exam GAIT: Normal. REFLEXES: 1+ UE and absent LE HOFFMANS: no Babinski:no AP: RIGHT C6 and C7 radiculopathies due to foraminal stenosis secondary to subsidence; possible nonunion; neuro as above. Surgery offered; has stopped smoking Consent routed Pelon Greenfield MD [facility] 02-16-2024 History of Presen t illness Narrative EST SURGERY/PROCEDURE DATE: 06/17/2021 SURGEON(S)/PROCEDURALIST(S) AND ROUTE JUMPER(S): Surgeon(s) and Role: * Flip Gonzalez MD - Primary * Doyle Patel MD - Resident - Assistin SURGERY/PROCEDURE(S): C5-C6, C6-C7 anterior cervical discectomy and fusion, Insertion of intervertebral interbody device at C5-C6, C6-C7, anterior spinal instrumentation C5-C7, Use of structural allograft. INSTRUMENTATION: 6mm structural allograft at C5-C6, C6-C7 with a K2M anterior plate. Neck pain: no Weakness: Yes, RUE weakness Arm pain: yes, RIGHT arm, C6 and C7 distribution Arm numbness: yes, RIGHT arm, C6 and C7 distribution Imbalance: no Hand dexterity loss: no OBJECTIVE: PHYSICAL EXAM: BP 141/85 Pulse 100 Resp 17 Ht 5' 9.5 (1.77m) Wt 279 lb 4.8 oz (126.7kg) SpO2 95% BMI 40.67 kg/(m^2). GENERAL APPEARANCE: Well nourished, well developed, and no apparent distress. NEURO PSYCH: Patient oriented to person, place, and time. Mood pleasant. Benign affect. MUSCULOSKELETAL VISUAL INSPECTION CERVICAL: WNL THORACIC: WNL LUMBAR: WNL MOTOR: 5/5 in all muscle groups. SENSORY: Normal sensory exam GAIT: Normal. REFLEXES: 1+ UE and absent LE HOFFMANS: no Babinski:no AP: RIGHT C6 and C7 radiculopathies due to foraminal stenosis secondary to subsidence; possible nonunion; neuro as above. Surgery offered; has stopped smoking Consent routed Pelon Greenfield MD documented in this encounter [facility] 02-09-2024 Telephone encounter Note Neuro SPINE CARE COORDINATION SURGERY SCHEDULING Patient accepts surgery date of 03/03/[address] Greenfield at [facility]. Planned procedure: Posterior cervical fusion Length of Surgery:3 hours Expected Length of Hospital Stay:3 days Patient's Home Address: [address] [place] [id number] Medications reviewed : Yes. Meds to be stopped prior to surgery : NSAIDS and Vitamins and supplements. Additional pre op clearances needed : None. . Letter Sent: No Any implanted devices (Stimulator, Defibrillator, etc.): No. Transplant History No. Nicotine use: Yes Patient will complete optimization lab work : HgbA1C and nicotine test. Education Sent Via Mail/ ToutApphart: [employer] PACC Questionnaire Completed: Yes Patient placed on cancellation list: No Pre op appts: Hari Chandler: ANUSHA PACC: [facility] 02/16/24 IC: 02/[address] Greenfield Education: RIKKI 02/23 @ 2:00 Imaging: N/A Post-op Dates: 2 week Virtual Visit with Kirill Longo PA-C on 03/17/24 at 9 am 6 week post-op with Dr. Greenfield on 04/20/24 at 10:10 am. Questions answered. Patient verbalizes understanding via teach back. Additional comments : none Preoperative Needs Assessment Do you live alone or with someone that can help you? Lives with caregiver Will you have assistance available at home after your surgery to help with physical activities such a toileting or dressing? Always How many steps do you need to climb to get into your home? 0 Once in your home, how many steps do you need to climb to access your bedroom or bathroom? 0 Do you use a mobility aid for walking/getting around? (note, if more than one type of aid is used, select the one that is used more frequently) None Anticipated LOS > 5 days: No Significant home social issues or Current history or past history of substance abuse: No Wheelchair baseline, Homebound baseline, Significant gait instability, or History of significant falls: No Thora/lumbar fusion any level planned or 2+ level posterior cervical fusion planned: Yes Myelopathic or Spine tumor: No Probability of non-home discharge disposition : Low [4.5] Oksana Diaz RN [facility] 02-09-2024 Miscellaneous Notes Neuro SPINE CARE COORDINATION SURGERY SCHEDULING Patient accepts surgery date of 03/03/[address] Greenfield at [facility]. Planned procedure: Posterior cervical fusion Length of Surgery:3 hours Expected Length of Hospital Stay:3 days Patient's Home Address: [address] [place], [place] [id number] Medications reviewed : Yes. Meds to be stopped prior to surgery : NSAIDS and Vitamins and supplements. Additional pre op clearances needed : None. . Letter Sent: No Any implanted devices (Stimulator, Defibrillator, etc.): No. Transplant History No. Nicotine use: Yes Patient will complete optimization lab work : HgbA1C and nicotine test. Education Sent Via Mail/ ToutApphart: [employer] PACC Questionnaire Completed: Yes Patient placed on cancellation list: No Pre op appts: Hari Chandler: ANUSHA PACC: [facility] 02/16/24 IC: 02/[address] Greenfield Education: RIKKI 02/23 @ 2:00 Imaging: N/A Post-op Dates: 2 week Virtual Visit with Kirill Longo PA-C on 03/17/24 at 9 am 6 week post-op with Dr. Greenfield on 04/20/24 at 10:10 am. Questions answered. Patient verbalizes understanding via teach back. Additional comments : none Preoperative Needs Assessment Do you live alone or with someone that can help you? Lives with caregiver Will you have assistance available at home after your surgery to help with physical activities such a toileting or dressing? Always How many steps do you need to climb to get into your home? 0 Once in your home, how many steps do you need to climb to access your bedroom or bathroom? 0 Do you use a mobility aid for walking/getting around? (note, if more than one type of aid is used, select the one that is used more frequently) None Anticipated LOS > 5 days: No Significant home social issues or Current history or past history of substance abuse: No Wheelchair baseline, Homebound baseline, Significant gait instability, or History of significant falls: No Thora/lumbar fusion any level planned or 2+ level posterior cervical fusion planned: Yes Myelopathic or Spine tumor: No Probability of non-home discharge disposition : Low [4.5] Oksana Diaz RN Pt returned call; he accepts 03/03/24 for surgery, please call him back to discuss further. Called patient to schedule surgery 03/03/[address] Greenfield. No answer, left message on identified VM for patient to return call to office. documented in this encounter [facility] 02-09-2024 Telephone encounter Note Pt returned call; he accepts 03/03/24 for surgery, please call him back to discuss further. [facility] 02-08-2024 Telephone encounter Note Called patient to schedule surgery 03/03/[address] Greenfield. No answer, left message on identified VM for patient to return call to office. [facility] 02-07-2024 Telephone encounter Note Pt returned call today. He has quit smoking. His leave from work expires 03/30. The surgery that is available is 04/21. He needs to speak with someone about the date, or potentially will loose his job -pt stated. [facility] 02-07-2024 Miscellaneous Notes Pt returned call today. He has quit smoking. His leave from work expires 03/30. The surgery that is available is 04/21. He needs to speak with someone about the date, or potentially will loose his job -pt stated. Call received for Pelon Greenfield MD regarding Jason Moore. Caller: Self Patient Identified by Name and : Yes Reason for Call: General Question Patient is calling to schedule surgery and Nicotine test. Is there any additional information the provider should know? No Last Office Visit: 01/14/2024 Next scheduled appointment: Visit date not found Best number to reach caller: [phone] Best time to reach caller: anytime Is it OK to leave a detailed voice message? Yes Michelle Hernández documented in this encounter [facility] 02-04-2024 Telephone encounter Note Call received for Pelon Greenfield MD regarding Jason Moore. Caller: Self Patient Identified by Name and : Yes Reason for Call: General Question Patient is calling to schedule surgery and Nicotine test. Is there any additional information the provider should know? No Last Office Visit: 01/14/2024 Next scheduled appointment: Visit date not found Best number to reach caller: [phone] Best time to reach caller: anytime Is it OK to leave a detailed voice message? Yes Michelle Hernández [facility] 01-19-2024 Telephone encounter Note Patient came in today for his appointment and we were able to schedule his physical. Jaylan Zheng MA [facility] 01-19-2024 Miscellaneous Notes Patient came in today for his appointment and we were able to schedule his physical. Jaylan Zheng MA Left message for patient that we will only be seeing him for the smoking. He is actually due for physical. We can assist with scheduling a 40 minute visit for that. Jaylan Zheng MA documented in this encounter [facility] 01-19-2024 History of Presen t illness Narrative Chief Complaint Patient presents with: Follow Up HPI Jason Merritt Oscar is a 53 year old male who presents here today is ready to quit smoking.. Patient is here today because he needs to quit smoking before he can have his surgery. What other methods have you tried in the past? maybe years ago he tried. Does not remember if he was on any medication to aid. How often and how much do you currently smoke a day. Has not been smoking in 3 days. Normally smokes every day; 1/2 pack a day Past medical history, appointments, medications, allergies reviewed. Previous Medical History PAST MEDICAL HISTORY Diagnosis Date Alcohol use 07/10/2016 3-5 day Back pain Cervical radiculopathy 12/16/2020 Fatty liver 03/28/2016 Heart rate fast on BB Hypertension Hypertension, essential 06/28/2014 LVH (left ventricular hypertrophy) 11/05/2022 With grade 1 Solomon dysfunction. Mixed hyperlipidemia 06/28/2014 Obesity, Class II, BMI 35-39.9 12/16/2020 JOSELITO (obstructive sleep apnea) resolved with weight loss Spinal stenosis in cervical region Tachycardia, unspecified on BB Previous Surgical History PAST SURGICAL HISTORY Procedure Laterality Date ALLOGRAFT FOR SPINE SURGERY ONLY STRUCTURAL 08/30/2011 FUSION AND REPLACED DISC lumbar ANTERIOR INSTRUMENTATION 2-3 VERTEBRAL SEGMENTS APPL-INTERVERTEBRAL BIOMECHANICAL DEVICES COLONOSCOPY FLX DX W/COLLJ SPEC WHEN PFRMD 09/28/2014 Colonoscopy, repeat 5 yrs PAST SURGICAL HISTORY OF back injections and disc biopsy PAST SURGICAL HISTORY OF 06/17/2021 C5-C6, C6-C7 anterior cervical discectomy and fusion, Insertion of intervertebral interbody device at C5-C6, C6-C7, anterior spinal instrumentation C5-C7, Use of structural allograft Family History FAMILY HISTORY Problem Relation Age of Onset Colon Cancer Father 50 Diabetes Father Hypertension Father Prostate Cancer Father 54 Colon Cancer Paternal Grandfather Diabetes Paternal Grandfather Prostate Cancer Paternal Grandfather 50'S Colon Cancer Paternal Uncle LATE 50'S Coronary Artery Disease Maternal Aunt Diabetes Paternal Uncle Diabetes Paternal Aunt Hypertension Paternal Grandmother Hypertension Paternal Aunt Hypertension Paternal Uncle Hypertension Maternal Aunt Hypertension Maternal Aunt Prostate Cancer Paternal Uncle 50'S Patient Allergies ALLERGIES Allergen Reactions Ativan [Lorazepam] GI Upset Paxil [Paroxetine H* GI Upset diarrhea Zoloft [Sertraline] GI Upset Current Medications Current Outpatient Medications on File Prior to Visit Medication Sig amLODIPine (NORVASC) 10 mg tablet Take 1 tablet by mouth once daily. lisinopril (ZESTRIL) 40 mg tablet Take 1 tablet by mouth once daily. hydroCHLOROthiazide 25 mg tablet Take 1 tablet by mouth once daily. gabapentin (NEURONTIN) 300 mg capsule Take 1 capsule by mouth daily at bedtime. For 3 days and then one twice a day for three days and then one three times a day as tolerated. Tadalafil (CIALIS) 20 mg tablet Take 1 tablet by mouth once daily. As needed. No current facility-administered medications on file prior to visit. Social History Social History Tobacco Use Smoking status: Every Day Packs/day: 0.50 Years: 21.00 Additional pack years: 0.00 Total pack years: 10.50 Types: Cigarettes Smokeless tobacco: Never Vaping Use Vaping Use: Never used Substance Use Topics Alcohol use: Yes Alcohol/week: 12.0 standard drinks of alcohol Types: 12 Cans of Beer (12oz) per week Drug use: Never Review of Symptoms REVIEW OF SYSTEMS See HPI EXAM: BP 122/82 (BP Site: Left Arm, BP Position: Sitting, BP Cuff Size: Large Adult) Pulse 82 Resp 16 Wt 124.3 kg (274 lb) BMI 40.46 kg/m General Appearance: Well appearing, alert, in no acute distress, well-hydrated, well nourished.. Lungs: Lungs clear to auscultation. No wheezing, rhonchi, rales.. Health Maintenance List Pneumococcal Vaccine(1 of 2 - PCV) Never done Shingrix Vaccine(1 of 2) Never done Covid-19 Vaccine(3 - season) due on 04/30/2023 Behavioral Health Screening Never done BP Controlled (<130/80) due on 11/06/2023 Annual PCP Team Chronic Disease Visit due on 04/13/2024 Influenza Vaccine(Season Ended) due on 04/30/2024 DTaP,Tdap,Td Vaccine(2 - Td or Tdap) due on 06/28/2024 Diabetes Screening due on 04/08/2026 Lipid Screening due on 10/05/2027 Colorectal Cancer Screening due on 02/04/2028 Hepatitis C Screening Completed HIV Screening Completed Hepatitis B Vaccine Discontinued Data reviewed A/P ASSESSMENT/PLAN: 1. Smoker - ICD9: 305.1, ICD10: F17.200 (primary diagnosis) - Cessation encouraged. - Counseling was given focusing on the harmful effects of this addiction especially given the patient's medical condition(s) which will be worsened because of the chemicals in tobacco. - Prescription for Chantix given 2. Encounter for smoking cessation counseling - ICD9: V65.42, 305.1, ICD10: Z71.6 - Cessation encouraged. - Counseling was given focusing on the harmful effects of this addiction especially given the patient's medical condition(s) which will be worsened because of the chemicals in tobacco. Requested Prescriptions Signed Prescriptions Disp Refills varenicline (CHANTIX STARTING MONTH BOX) 0.5 mg (11)- 1 mg (42) tablet 53 tablet 0 Sig: Take 0.5 mg by mouth once daily on Days 1 through 3, THEN 0.5 mg twice daily on Days 4 through 7, THEN 1 mg twice daily on Day 8 and thereafter varenicline (CHANTIX CONTINUING MONTH BOX) 1 mg tablet 60 tablet 4 Sig: Take 1 tablet by mouth two times a day with meals. Start the month after the starter pack F/u near future for complete PE and pre-op clearance. Colton Rosario MD documented in this encounter [facility] 01-19-2024 Note HNO ID: [id number] Author: COLTON ROSARIO MD Service: ? Author Type: Physician Type: Progress Notes Filed: 01/20/2024 08:36 Note Text: Chief Complaint Patient presents with: Follow Up HPI Jason Merritt Oscar is a 53 year old male who presents here today is ready to quit smoking.. Patient is here today because he needs to quit smoking before he can have his surgery. What other methods have you tried in the past? maybe years ago he tried. Does not remember if he was on any medication to aid. How often and how much do you currently smoke a day. Has not been smoking in 3 days. Normally smokes every day; 1/2 pack a day Past medical history, appointments, medications, allergies reviewed. Previous Medical History PAST MEDICAL HISTORY Diagnosis Date Alcohol use 07/10/2016 3-5 day Back pain Cervical radiculopathy 12/16/2020 Fatty liver 03/28/2016 Heart rate fast on BB Hypertension Hypertension, essential 06/28/2014 LVH (left ventricular hypertrophy) 11/05/2022 With grade 1 Solomon dysfunction. Mixed hyperlipidemia 06/28/2014 Obesity, Class II, BMI 35-39.9 12/16/2020 JOSELITO (obstructive sleep apnea) resolved with weight loss Spinal stenosis in cervical region Tachycardia, unspecified on BB Previous Surgical History PAST SURGICAL HISTORY Procedure Laterality Date ALLOGRAFT FOR SPINE SURGERY ONLY STRUCTURAL 08/30/2011 FUSION AND REPLACED DISC lumbar ANTERIOR INSTRUMENTATION 2-3 VERTEBRAL SEGMENTS APPL-INTERVERTEBRAL BIOMECHANICAL DEVICES COLONOSCOPY FLX DX W/COLLJ SPEC WHEN PFRMD 09/28/2014 Colonoscopy, repeat 5 yrs PAST SURGICAL HISTORY OF back injections and disc biopsy PAST SURGICAL HISTORY OF 06/17/2021 C5-C6, C6-C7 anterior cervical discectomy and fusion, Insertion of intervertebral interbody device at C5-C6, C6-C7, anterior spinal instrumentation C5-C7, Use of structural allograft Family History FAMILY HISTORY Problem Relation Age of Onset Colon Cancer Father 50 Diabetes Father Hypertension Father Prostate Cancer Father 54 Colon Cancer Paternal Grandfather Diabetes Paternal Grandfather Prostate Cancer Paternal Grandfather 50'S Colon Cancer Paternal Uncle LATE 50'S Coronary Artery Disease Maternal Aunt Diabetes Paternal Uncle Diabetes Paternal Aunt Hypertension Paternal Grandmother Hypertension Paternal Aunt Hypertension Paternal Uncle Hypertension Maternal Aunt Hypertension Maternal Aunt Prostate Cancer Paternal Uncle 50'S Patient Allergies ALLERGIES Allergen Reactions Ativan [Lorazepam] GI Upset Paxil [Paroxetine H* GI Upset diarrhea Zoloft [Sertraline] GI Upset Current Medications Current Outpatient Medications on File Prior to Visit Medication Sig amLODIPine (NORVASC) 10 mg tablet Take 1 tablet by mouth once daily. lisinopril (ZESTRIL) 40 mg tablet Take 1 tablet by mouth once daily. hydroCHLOROthiazide 25 mg tablet Take 1 tablet by mouth once daily. gabapentin (NEURONTIN) 300 mg capsule Take 1 capsule by mouth daily at bedtime. For 3 days and then one twice a day for three days and then one three times a day as tolerated. Tadalafil (CIALIS) 20 mg tablet Take 1 tablet by mouth once daily. As needed. No current facility-administered medications on file prior to visit. Social History Social History Tobacco Use Smoking status: Every Day Packs/day: 0.50 Years: 21.00 Additional pack years: 0.00 Total pack years: 10.50 Types: Cigarettes Smokeless tobacco: Never Vaping Use Vaping Use: Never used Substance Use Topics Alcohol use: Yes Alcohol/week: 12.0 standard drinks of alcohol Types: 12 Cans of Beer (12oz) per week Drug use: Never Review of Symptoms REVIEW OF SYSTEMS See HPI EXAM: BP 122/82 (BP Site: Left Arm, BP Position: Sitting, BP Cuff Size: Large Adult) Pulse 82 Resp 16 Wt 124.3 kg (274 lb) BMI 40.46 kg/m? General Appearance: Well appearing, alert, in no acute distress, well-hydrated, well nourished.. Lungs: Lungs clear to auscultation. No wheezing, rhonchi, rales.. Health Maintenance List Pneumococcal Vaccine(1 of 2 - PCV) Never done Shingrix Vaccine(1 of 2) Never done Covid-19 Vaccine(3 - season) due on 04/30/2023 Behavioral Health Screening Never done BP Controlled (<130/80) due on 11/06/2023 Annual PCP Team Chronic Disease Visit due on 04/13/2024 Influenza Vaccine(Season Ended) due on 04/30/2024 DTaP,Tdap,Td Vaccine(2 - Td or Tdap) due on 06/28/2024 Diabetes Screening due on 04/08/2026 Lipid Screening due on 10/05/2027 Colorectal Cancer Screening due on 02/04/2028 Hepatitis C Screening Completed HIV Screening Completed Hepatitis B Vaccine Discontinued Data reviewed A/P ASSESSMENT/PLAN: 1. Smoker - ICD9: 305.1, ICD10: F17.200 (primary diagnosis) - Cessation encouraged. - Counseling was given focusing on the harmful effects of this addiction especially given the patient's medical condition(s) which will be worse (more content not included)... [facility] 01-18-2024 Telephone encounter Note Left message for patient that we will only be seeing him for the smoking. He is actually due for physical. We can assist with scheduling a 40 minute visit for that. Jaylan Zheng MA [facility] 01-14-2024 Note HNO ID: [id number] Author: PELON GREENFIELD MD Service: ? Author Type: Physician Type: Progress Notes Filed: 01/14/2024 11:46 Note Text: VV Est SURGERY/PROCEDURE DATE: 06/17/2021 SURGEON(S)/PROCEDURALIST(S) AND ROUTE JUMPER(S): Surgeon(s) and Role: * Flip Gonzalez MD - Primary * Doyle Patel MD - Resident - Assistin SURGERY/PROCEDURE(S): C5-C6, C6-C7 anterior cervical discectomy and fusion, Insertion of intervertebral interbody device at C5-C6, C6-C7, anterior spinal instrumentation C5-C7, Use of structural allograft. INSTRUMENTATION: 6mm structural allograft at C5-C6, C6-C7 with a K2M anterior plate. 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 Pelon Greenfield MD [facility] 01-14-2024 History of Presen t illness Narrative VV Est SURGERY/PROCEDURE DATE: 06/17/2021 SURGEON(S)/PROCEDURALIST(S) AND ROUTE JUMPER(S): Surgeon(s) and Role: * Flip Gonzalez MD - Primary * Doyle Patel MD - Resident - Assistin SURGERY/PROCEDURE(S): C5-C6, C6-C7 anterior cervical discectomy and fusion, Insertion of intervertebral interbody device at C5-C6, C6-C7, anterior spinal instrumentation C5-C7, Use of structural allograft. INSTRUMENTATION: 6mm structural allograft at C5-C6, C6-C7 with a K2M anterior plate. 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 Pelon Greenfield MD documented in this encounter [facility] 12-16-2023 Miscellaneous Notes Letter drafted as requested at yesterday's visit. Sent to patient and patient noted he will be faxing over. Luiza Fonseca MD documented in this encounter [facility] 12-15-2023 History of Presen t illness Narrative [facility] Established Visit Last Seen:11/26/2023 CC: neck pain, hand numbness, low back pain, and lower extremity pain HPI: Mr. Moore is a pleasant 53 year old male seen in follow-up. Patient was last seen on 11/26/2023. Please refer to that note for additional details. present. Feeling worse. Noting pain is more intense of the L LE. notes has noted L calf atrophy that is chronic. Has h/o lumbar surgery for L LE symptoms in 2011. Ongoing neck and R hand numbness Ongoing sense of hand weakness More recent notes bilateral hand swelling and hand pain. Patient notes heard back from surgical team and was referred to pain management, Dr Kyle Hanks for a diagnostic cervical injection and potential surgical planning. The injection was canceled due to insurance issues. Has apt to see Dr. Greenfield--12/23/2023 and plans on addressing then. Will also be addressing lumbar issues with Dr. Greenfield and is considering surgery for this as well. Patient notes has been in contact with employer and told a letter can be sent for his short term disability claim. Per patient to fax # [phone]. Per last note Prior therapy: 6 sessions of PT and doing HEP-last session 06/17/2023. First session was 05/17/2023. Taking gabapentin 300 mg 1-2/day. Does not like medications. Prior had cervical surgery 2020. Prior to surgery cervical injections and did not help. 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 Patient notes ongoing concern regarding operating the tyler because of L hand cramping and numbness. Notes the short term disability was denied Patient Entered Questionnaires 01/07/2021 06/18/2023 Spine Questions Pain Location: Arm Arm Pain Duration: 1-3 months 3-6 months Pain over last 6 months: Every day or nearly every day in the past 6 months Symptoms from neck/cervical spine: Yes Yes Employment Status: Other Disabled for reasons other than back pain Off work 1 month or more due to back/neck pain: Does not apply Applied for/receive disability/WC due to low back/neck pain Does not apply Involved in law suit/legal claim: No No 01/07/2021 06/18/2023 Spine Red Flags Any type of cancer: No No Unexplained fever: No No Bowel or bladder disfunction: No No Unintentional weight loss: No No Osteoporosis: No No 01/07/2021 06/18/2023 Neck Questionnaires Benzel Modified FERNIE Score Incomplete 14 (A lower score indicates increased pain and issues.) PROMIS Score Percentiles 05/17/2023 06/14/2023 06/18/2023 Physical Health Physical Function Percentile 38 38 Sleep Percentile 27* Fatigue Percentile 73 Pain Interference Percentile 8 4 01/07/2021 06/18/2023 PROMIS SOCIAL ROLE SCORE Social Role Satisfaction Percentile 8 8 01/07/2021 05/17/2023 PROMIS Global Health Scale Physical Health Percentile 41 15 Mental Health Percentile 89 63 Percentiles provide an indication of how the patient's score ranks in relation to the general population. Higher percentile rankings indicate better function/quality of life. 50th percentile is the average of the general population and indicates half of respondents had a worse score. Depression Screenin07/10/2016 01/07/2021 06/18/2023 PHQ-9 Score 0 0 6 07/10/2016 01/07/2021 06/18/2023 PHQ-9 Self-harm Question Question 9 Not at all Not at all Not at all PHQ-9 Self-Harm (Item 9) response options: 0 Not at all 1 Several days 2 More than half the days 3 Nearly every day PHQ-9 Levels: 0-4 No - mild depression 5-9 Mild depression 10-14 Moderate depression 15-19 Moderately severe depression 20-27 Severe depression Allergies: ALLERGIES Allergen Reactions Ativan [Lorazepam] GI Upset Paxil [Paroxetine H* GI Upset diarrhea Zoloft [Sertraline] GI Upset Current Outpatient Medications Medication Sig amLODIPine (NORVASC) 10 mg tablet Take 1 tablet by mouth once daily. lisinopril (ZESTRIL) 40 mg tablet Take 1 tablet by mouth once daily. hydroCHLOROthiazide 25 mg tablet Take 1 tablet by mouth once daily. gabapentin (NEURONTIN) 300 mg capsule Take 1 capsule by mouth daily at bedtime. For 3 days and then one twice a day for three days and then one three times a day as tolerated. Tadalafil (CIALIS) 20 mg tablet Take 1 tablet by mouth once daily. As needed. No current facility-administered medications for this visit. Physical Examination: Resp 18 Ht 5' 9 (1.75m) Wt 279 lb 15.8 oz (127.0kg) BMI 41.33 kg/(m^2). General: NAD, pleasant Lungs: Symmetric chest expansion Gait: normal Strength: Bilateral upper and LE strength is normal Reflexes: Bilateral upper and LE reflexes are 1+ Neuro: Hoffmans is negative Normal toe and heel walking Slight LOB on tandem gait able to correct Able to perform 7-8 back to back toe raises Very Slight L calf atrophy Radiological Review: no additional imaging since last note Per last note: Cervical MRI times 2-09/2023 and 06/2023. Most recent 09/2023 C3-C4: Disc/osteophyte complex bulge abuts cord ventrally without compression. Minimal bilateral foraminal stenosis. No significant change. C4-C5: Disc/osteophyte complex bulge abuts cord ventrally without compression. Central extrusion appears to be improved. No significant foraminal stenosis. C5-C6: Residual disc/osteophyte complex bulge abuts and flattens cord ventrally to the left, unchanged. Moderate left and mild right foraminal stenosis, unchanged. C6-C7: Canal and foramina are patent. C7-T1: Facet hypertrophy with mild bilateral foraminal stenosis, unchanged. Thoracic MRI 09/2023-Mild degenerative changes of the midthoracic spine. No significant canal or severe foraminal stenosis throughout the thoracic region. Normal morphology and signal intensity of the thoracic spinal cord. Lumbar MRI-11/12/2023- Fusion at L5-S1 and disproportionate degenerative change at L4-L5 likely related to stress concentration above this fused segment. Below mid-L3, there is substantial epidural fat which creates disproportionate narrowing of the thecal sac relative to the caliber of the bony canal. Bony changes and disc bulging ventrally is the primary issue with regards to the severe spinal stenosis at L4-L5. Disc and bony degenerative change is also the main factor in the severe left foraminal narrowing at L4-L5. CT cervical 10/07/2023- IMPRESSION: Degenerative and postsurgical changes of the cervical spine as discussed level by level in the body of the report. C5-7 hardware appears intact without CT evidence of fluid is seen. Bone ankylosis between C5-7 vertebral bodies. No fracture. No severe canal or severe foraminal stenosis. Unchanged moderate left foraminal narrowing at C5-6. R UE EMG-05/28/2023 Electrodiagnostic examination of the right upper limb (related cervical paraspinal muscles deferred due to a history of spine surgery), with additional needle electrode studies of the left upper limb, reveals changes most consistent with the followin. The residuals of a chronic/remote intraspinal canal lesion intraspinal canal lesion (ie: motor radiculopathy) at the bilateral C7 roots or segments, moderate in degree electrically. Active motor axon loss change is seen in the right triceps (not left) suggesting an ongoing process on the right. 2. Residuals of an old/chronic intraspinal canal lesion (ie: motor radiculopathy) at the following root(s)/segment(s): -Right C5/6, mild in degree electrically, without evidence of ongoing motor axon loss. 3. No definite evidence of a right median mononeuropathy at or distal to the wrist (carpal tunnel syndrome). Impression/Plan: Cervical radiculopathy, cervical stenosis. H/o cervical surgery. Lumbar stenosis,lumbar radiculopathy and h/o lumbar surgery. Management options reviewed. Ongoing activities and HEP as tolerated. Taking gabapentin. Has upcoming spine surgery visit, considering surgical options for both cervical and lumbar spine. Cervical issues are being addressed first as this is main complaint per patient and spine surgery note review. Ongoing issues with short term disability claim-patient is requesting a letter be sent. Will draft letter and send to patient via my chart and patient notes he will forward accordingly. F/u with PCP for hand swelling is recommended, did review swelling would be atypical of the spine. The patient is instructed to call/seek urgent medical care with worsening pain or change of neurological status. There are no barriers to patient education identified. Management options were discussed in detail. The patient is in agreement with the plan as outlined above and verbalized understanding. Luiza Fonseca MD documented in this encounter [facility] 12-08-2023 Miscellaneous Notes Patient has been identified by name and date of : Yes Patient phones for refill(s): Requested Prescriptions Pending Prescriptions Disp Refills amLODIPine (NORVASC) 10 mg tablet 90 tablet 1 Sig: Take 1 tablet by mouth once daily. lisinopril (ZESTRIL) 40 mg tablet 90 tablet 1 Sig: Take 1 tablet by mouth once daily. hydroCHLOROthiazide 25 mg tablet 90 tablet 1 Sig: Take 1 tablet by mouth once daily. Date of last office visit in primary care: 04/13/2023 Date of next office visit in primary care: Not found Please advise. Thank you. IRENA Amado. documented in this encounter [facility] 12-07-2023 Miscellaneous Notes Patient is aware, Message was read, but no reply. F/U 12/23 Please let patient know I was advised case was closed as of 10/07/23 and no capability for peer to peer. FCE ordered if needed based on surgical opinion for the cervical and R hand issues. Please advise can r/s 12/14 apt with me until after FCE and the May follow-up is fine. Can also adjust f/u based on surgical opinion and FCE need. Luiza Fonseca MD documented in this encounter [facility] 12-02-2023 Miscellaneous Notes Procedure ordered. Sent to scheduling. Thanks, Rachel Alcocer APRN.SONOGRAPHY TECHNICIAN Contacted patient, discussed results of imaging review MRI C/T/L spine with Dr. 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 Hanks and team for scheduling. He will advise our office once scheduled to arrange follow-up visit with Dr. Greenfield to discuss results of injection Leonel Longo PA-C Spine Surgery Call received for Pelon Greenfield MD regarding Jason Moore. Caller: Self Patient Identified by Name and : Yes Patient calling for MRI cervical (2), MRI thoracic (2/8), MRI lumbar (11/11) and CT cervical (2) results. Patient informed that it can take 7 business days to review and that someone from the clinical team will call with results once reviewed. Pt has not heard from the office and it has been over 10 days. documented in this encounter [facility] 11-29-2023 Miscellaneous Notes 2nd request for imaging review documented in this encounter [facility] 11-23-2023 Miscellaneous Notes Last seen 06/18. Called patient to f/u on disability issues. Notes disability was not approved as did not meet criteria despite sent in paperwork. Advised as last seen 06/18 recommend follow-up in person to best address. Needs updated history and exam. Advised to bring in job description to visit for review and may need referral for FCE. Continues to be undergoing workup with the spine surgery team. Patient accepts appointment for Wednesday at 350 pm at [facility]. Luiza Fonseca MD documented in this encounter [facility] 11-15-2023 Miscellaneous Notes Patient calling for 315 results. Patient informed that it can take 7 business days to review and that someone from the clinical team will call with results once reviewed. Verified imaging and reports were received. Forwarded to team for review. Patricia Huerta documented in this encounter [facility] 11-15-2023 Miscellaneous Notes Paperwork was further addressed and signed last week and was faxed over. Patient seen twice 05/05/2023 and 06/18/2023. Has not been since this. Needs f/u in person to best address this further--please assist. Appears patient is still undergoing work-up and is awaiting spine surgery recommendations. Paperwork was carried over from PCP team who initiated until spine surgery consult. Luiza Fonseca MD There was a separate message sent to Ashley as well. Jaylan Zheng MA documented in this encounter [facility] 11-12-2023 History of Presen t illness Narrative Radiology Service Progress Note PATIENT NAME: Jason Moore DATE OF SERVICE: November 12, 2023 TIME: 2:25 PM PATIENT IDENTITY VERIFICATION COMPLETED USING TWO (2) IDENTIFIERS: Name and Date of confirmed by patient verbally and Name and Date of confirmed by identification band. FALL SCREENING: Has the patient had 2 falls in the last year or 1 fall with injury or currently using an Ambulatory Assistive Device (Walker, Cane, Wheelchair, Crutches, etc.)? No PATIENT GENDER DATA: Male PATIENT RELEVANT IMPLANT DATA REVIEWED: Yes PATIENT PRESENTS WITH AN IMPLANTABLE OR ATTACHED FABRICATION MIG WELDER: No RADIOLOGY DEPARTMENT: MR; Exam(s) Completed: Spine: Lumbar spine PERIPHERAL IV DATA: Not applicable SIGNED BY: INES Gonzalez November 12, 2023 2:25 PM documented in this encounter [facility] 10-13-2023 Miscellaneous Notes Neuro SPINE CARE COORDINATION QUICK NOTE Called and left message on identified VM. Patient called for MRI results as documented in 10/12/23 [facility] encounter. Left message informing patient MRI lumbar ordered by Dr. Greenfield was not completed. Cervical MRI ordered by Dr. Fonseca was completed. Informed patient Dr. Greenfield needs lumbar MRI completed to determine next steps. message also sent. documented in this encounter [facility] 10-12-2023 Miscellaneous Notes Time off was provided until sees spine surgeon. Spine surgery team usually addresses if they plan on surgery-recommend also discuss with surgical team. If not surgical I would not be able to continue and should address via PCP. The insurance company called but when I got to the phone they had hung up and I have not been contacted since and a number to call back was not provided. Luiza Fonseca MD Neuro SPINE CARE COORDINATION QUICK NOTE Encounter from 10/06 with same topic regarding disability. Appears Dr. Fonseca was not aware of any concerns or has ever heard of a peer to peer for this. Patient asking again for a peer to peer. documented in this encounter [facility] 10-12-2023 Miscellaneous Notes Patient calling for 10/07/23 results. Patient informed that it can take 7 business days to review and that someone from the clinical team will call with results once reviewed. Verified imaging and reports were received. Forwarded to team for review. Patricia Huerta documented in this encounter [facility] 10-07-2023 History of Presen t illness Narrative Radiology Service Progress Note PATIENT NAME: Jason Moore DATE OF SERVICE: October 07, 2023 TIME: 1:11 PM PATIENT IDENTITY VERIFICATION COMPLETED USING TWO (2) IDENTIFIERS: Name and Date of confirmed by patient verbally. FALL SCREENING: Has the patient had 2 falls in the last year or 1 fall with injury or currently using an Ambulatory Assistive Device (Walker, Cane, Wheelchair, Crutches, etc.)? No PATIENT GENDER DATA: Male PATIENT RELEVANT IMPLANT DATA REVIEWED: Yes PATIENT PRESENTS WITH AN IMPLANTABLE OR ATTACHED FABRICATION MIG WELDER: No RADIOLOGY DEPARTMENT: CT; Exam(s) Completed: Spine PERIPHERAL IV DATA: Not applicable SIGNED BY: RT Nicol(R) October 07, 2023 1:11 PM documented in this encounter [facility] 10-07-2023 History of Presen t illness Narrative Radiology Service Progress Note PATIENT NAME: Jason Moore DATE OF SERVICE: October 07, 2023 TIME: 9:07 AM PATIENT IDENTITY VERIFICATION COMPLETED USING TWO (2) IDENTIFIERS: Name and Date of confirmed by patient verbally. FALL SCREENING: Has the patient had 2 falls in the last year or 1 fall with injury or currently using an Ambulatory Assistive Device (Walker, Cane, Wheelchair, Crutches, etc.)? No PATIENT GENDER DATA: Male PATIENT RELEVANT IMPLANT DATA REVIEWED: Yes PATIENT PRESENTS WITH AN IMPLANTABLE OR ATTACHED FABRICATION MIG WELDER: No RADIOLOGY DEPARTMENT: MR; Exam(s) Completed: Spine: Cervical spine and Thoracic spine PERIPHERAL IV DATA: Not applicable SIGNED BY: RT Omer(R) October 07, 2023 9:07 AM Radiology Service Progress Note PATIENT NAME: Jason Moore DATE OF SERVICE: October 07, 2023 TIME: 9:10 AM PATIENT IDENTITY VERIFICATION COMPLETED USING TWO (2) IDENTIFIERS: Name and Date of confirmed by patient verbally. FALL SCREENING: Has the patient had 2 falls in the last year or 1 fall with injury or currently using an Ambulatory Assistive Device (Walker, Cane, Wheelchair, Crutches, etc.)? No PATIENT GENDER DATA: Male PATIENT RELEVANT IMPLANT DATA REVIEWED: Yes PATIENT PRESENTS WITH AN IMPLANTABLE OR ATTACHED FABRICATION MIG WELDER: No RADIOLOGY DEPARTMENT: MR; Exam(s) Completed: Spine: Cervical spine and Thoracic spine PERIPHERAL IV DATA: Not applicable SIGNED BY: RT Omer(R) October 07, 2023 9:10 AM documented in this encounter [facility] 07-19-2023 Miscellaneous Notes Called patient reviewed cervical MRI results. Reviewed management options. Would like to proceed with spine surgery consult, order placed, # provided to call and schedule. Luiza Fonseca MD documented in this encounter [facility] 07-08-2023 Miscellaneous Notes Reviewed phone notes and paperwork has been completed by Dr. Fonseca. Jaylan Zheng MA Left message for patient to contact office. Jaylan Zheng MA Upon review of the note his spine surgeon is completing the FMLA paperwork. Jaylan Zheng MA Pt is calling to check status on FMLA forms that pcp was to fill out. Asking if these have been faxed yet. Call pt with information. Dafne Hill LPN [facility] [facility] Miscellaneous Notes Called patient to inform we have not received forms. Originally Dr. Fonseca did not approve STD. After she had an appointment with him 06/18/23 she mentioned she will approve short term disability from visit to the next 6 weeks. Informed patient we are in need of new forms and gave fax number for him to send over. Will complete once sent to office. Patient is calling to speak with the nurse pertaining Short Term Disability Claim forms Patient states [facility] [employer] Forms has not been received Patient states the fax number should be of the form call back [phone] documented in this encounter [facility] 06-23-2023 Miscellaneous Notes Still awaiting forms. Dot message sent to patient 06/18/23 Last Read in [employer] 06/18/2023 3:46 PM by Jason Moore Called and lvm for patient to have forms sent in. Dr. Fonseca fax number given. Dot message also sent. Images from the original note were not included. Received: Today Luiza Fonseca MD Ange, Tracy, ERAST[employer]; Carissa Ruiz, [employer] Patient ok for short term disability paperwork-from visit to the next 6 weeks-appears we received paperwork-see Epic. Hope will have cervical MRI by then. Cervical MRI reordered. Thanks documented in this encounter [facility] 06-18-2023 History of Presen t illness Narrative [facility] Virtual Established Visit I have communicated my name and active licensure. The patient's identity and physical location were verified at the time of this visit. Either the patient or their legal loan servicing representative has been informed of the risks and benefits of -- and alternatives to -- treatment through a remote evaluation and consents to proceed with the evaluation remotely. Last Seen: 05/05/2023 CC: neck pain and upper extremity pain/numbness HPI: Jason Moore is a pleasant 52 year old male seen in follow-up. present. Overall the same regarding R shoulder/arm and hand numbness. 6 sessions of PT and doing HEP-slow benefit. Ongoing numbness. Better re cramping. 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 Was dropping things prior. Taking gabapentin 300 mg bid, not a medication person. 3/day rarely. Ibuprofen as needed. L LE pain-overall better since gabapentin as not as much pain. PCP was handling short term disability thru apt. 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 Notes no capability for restrictions. Patient Entered Questionnaires Spine Questions 01/07/2021 06/18/2023 Pain Location: Arm Arm Pain Duration: 1-3 months 3-6 months Pain over last 6 months: - Every day or nearly every day in the past 6 months Symptoms from neck/cervical spine: Yes Yes Employment Status: Other Disabled for reasons other than back pain Off work 1 month or more due to back/neck pain: Does not apply - Applied for/receive disability/WC due to low back/neck pain Does not apply - Involved in law suit/legal claim: No No Spine Red Flags 01/07/2021 06/18/2023 Any type of cancer: No No Unexplained fever: No No Bowel or bladder disfunction: No No Unintentional weight loss: No No Osteoporosis: No No Neck Questionnaires 01/07/2021 06/18/2023 Benzel Modified FERNIE Score Incomplete 14 (A lower score indicates increased pain and issues.) PROMIS Score Percentiles Physical Health 05/17/2023 06/14/2023 06/18/2023 Physical Function Percentile 38 38 - Sleep Percentile - - 27* Fatigue Percentile - - 73 Pain Interference Percentile 8 - 4 PROMIS SOCIAL ROLE SCORE 01/07/2021 06/18/2023 Social Role Satisfaction Percentile 8 8 PROMIS Global Health Scale 01/07/2021 05/17/2023 Physical Health Percentile 41 15 Mental Health Percentile 89 63 Percentiles provide an indication of how the patient's score ranks in relation to the general population. Higher percentile rankings indicate better function/quality of life. 50th percentile is the average of the general population and indicates half of respondents had a worse score. Depression Screening: PHQ-9 07/10/2016 01/07/2021 06/18/2023 Score 0 0 6 PHQ-9 Self Harm 01/07/2021 06/18/2023 Question 9 Not at all Not at all PHQ-9 Self-Harm (Item 9) response options: 0 Not at all 1 Several days 2 More than half the days 3 Nearly every day PHQ-9 Levels: 0-4 No - mild depression 5-9 Mild depression 10-14 Moderate depression 15-19 Moderately severe depression 20-27 Severe depression ALLERGIES Allergen Reactions Ativan [Lorazepam] GI Upset Paxil [Paroxetine H* GI Upset diarrhea Zoloft [Sertraline] GI Upset Current Outpatient Medications Medication Sig gabapentin (NEURONTIN) 300 mg capsule Take 1 capsule by mouth daily at bedtime. For 3 days and then one twice a day for three days and then one three times a day as tolerated. amLODIPine (NORVASC) 10 mg tablet Take 1 tablet by mouth once daily. lisinopril (ZESTRIL) 40 mg tablet Take 1 tablet by mouth once daily. hydroCHLOROthiazide 25 mg tablet Take 1 tablet by mouth once daily. Tadalafil (CIALIS) 20 mg tab(s) Take 1 tablet by mouth once daily. As needed. No current facility-administered medications for this visit. PAST MEDICAL HISTORY Diagnosis Date Alcohol use 07/10/2016 3-5 day Back pain Cervical radiculopathy 12/16/2020 Fatty liver 03/28/2016 Heart rate fast on BB Hypertension Hypertension, essential 06/28/2014 LVH (left ventricular hypertrophy) 11/05/2022 With grade 1 Solomon dysfunction. Mixed hyperlipidemia 06/28/2014 Obesity, Class II, BMI 35-39.9 12/16/2020 JOSELITO (obstructive sleep apnea) resolved with weight loss Spinal stenosis in cervical region Tachycardia, unspecified on BB Physical Examination: General: NAD, pleasant Lungs: Symmetric chest expansion PT note reviewed-yesterday R Middle Trapezius: 4+/5 R Lower Trapezius: 4+/5 R Rhomboid: 4+/5 L Middle Trapezius: 4+/5 L Lower Trapezius: 4+/5 L Rhomboid: 4+/5 Hand Strength R Picu Nurse Position 2 (lbs): 105 lbs L Picu Nurse Position 2 (lbs): 115 lbs Radiological Review: Cervical xray-04/2023-IMPRESSION: Postoperative and degenerative changes, as described. No hardware complication. EMG 05/28/2023 Electrodiagnostic examination of the right upper limb (related cervical paraspinal muscles deferred due to a history of spine surgery), with additional needle electrode studies of the left upper limb, reveals changes most consistent with the followin. The residuals of a chronic/remote intraspinal canal lesion intraspinal canal lesion (ie: motor radiculopathy) at the bilateral C7 roots or segments, moderate in degree electrically. Active motor axon loss change is seen in the right triceps (not left) suggesting an ongoing process on the right. 2. Residuals of an old/chronic intraspinal canal lesion (ie: motor radiculopathy) at the following root(s)/segment(s): -Right C5/6, mild in degree electrically, without evidence of ongoing motor axon loss. 3. No definite evidence of a right median mononeuropathy at or distal to the wrist (carpal tunnel syndrome). Impression/plan: R UE pain with numbness and weakness appears most consistent with cervical radiculopathy for apx 3 months. H/o cervical surgery C5 thru C7 07/18/2021 and was better until apx the last 3 months. EMG and x-ray reviewed. See above. Cervical MRI continues to be recommended given symptoms/weakness, duration, and lack of significant benefit with attempted treatment-PT/HEP (has had 6 sessions), medications (NSAIDs, gabapentin). Cervical MRI reordered, prior denied by insurance company. Continue HEP as tolerated. Continue gabapentin attempt 300 mg tid as tolerated consistently. Will address short term disability given such and reassess pending MRI review. Pending MRI review consider spine surgery consult +/-injection options. Advised ED with worsening or changes. Call for MRI results. The patient is instructed to call/seek urgent medical care with worsening pain or change of neurological status. There are no barriers to patient education identified. Management options were discussed in detail. The patient is in agreement with the plan as outlined above and verbalized understanding. Luiza Fonseca MD documented in this encounter [facility] 06-17-2023 History of Presen t illness Narrative Episode Visit Count: 6 Therapist That Will Accept/Oversee The Plan Of Care: Ayo Aguilar PT. Start of Care Date: 05/17/23 Onset Date: 03/08/23 Patient Identified by Name and Date of : Yes REHABILITATION AND SPORTS THERAPY PHYSICAL THERAPY PROGRESS REPORT PLAN OF CARE UPDATE: Assessment: Jason Moore demonstrates minimal improvement in decreased referral pain from the neck down the shoulder. States improved writing his name and dicing with knives during cooking. He has progressed toward goals. Patient continues to present with impairments in ADL's/IADLs, overall function, posture, range of motion, strength, symptom management, and tissue tenderness that interfere with gripping, pinching, carrying, cooking, working . Current prognosis is Fair due to: clinical presentation, chronic nature of impairments, Prognosis may be improved by good overall health status, good support system/ coping skills, within-session changes. He will benefit from continued skilled therapy services to meet the updated goals for this plan of care as noted below. Goals for Episode of Care: Updated on 06/17/23 Goals for Episode of Care: created on 05/17/23 through 07/17/23 [place] in home exercise program. (MET) Patient will decrease pain rating by 2 points to meet minimal clinical important difference for numeric pain rating scale. (NOT MET) Patient will demonstrate increase in B Scapular strength to 5/5 during manual muscle testing in order to improve function for home management tasks, leisure / recreation skills, light functional tasks, moderate to heavy functional tasks, and prior functional tasks. (Progressing Towards) Patient will demonstrate increase in R Picu Nurse Strength to WNL compared to the L Picu Nurse during dynamometer testing (programming engineer). (R Picu Nurse Improved but not equal to L) Patient will report at least a 50% decrease in R Hand/Digit symptoms and Frequency. (Not met, progressing). Restore & increase pain free cervical ROM to WNL to allow for improved functional mobility. (Improved and progressing) Maintain proper sitting posture throughout the session to allow for decreased symptoms. (Progressing Towards) Complete gripping/cooking/dicing foods/writing his name with no aggravation of pain/symptoms. (Improving, progressing towards). Patient Goals: Alleviate hand numbness and tingling; improve programming engineer strength. Planned Interventions, Frequency, and Duration: 1x/week, 4 weeks Total Number of Visits Planned: 4 Patient to be seen for Therapeutic exercise (71347), Neuromuscular re-education (72439), Therapeutic activities ([id number]), Manual therapy (21057), Self-custodial management ([id number]), Patient/Family/Caregiver Education, Body Mechanics Training PLAN FOR NEXT VISIT: Gordon to have appointment with Dr. Fonseca and decide on current route to take; MRI/surgery vs. continued conservative PT. Upon return, scapular strengthening and finger//wrist/hand strengthening. SUBJECTIVE: Continued RUE numbness, states tenderness in the R Neck and shoulder area following last visit. A little sore in the neck today from not sleeping to well. Patient reports progress made with decreased referred pain down the shoulder into the forearm, however no improvement with gripping and numbness in the R Hand. Follow-up with Dr. Fonseca tomorrow virtually. Functional Limitations: gripping, pinching, carrying, cooking, working Pain: Pain Pain Level: 2 Pain Location: Neck - Right, Shoulder - Right Description: Tightness, Pressure Frequency: Continuous Pain Level 2: 2 Pain Location 2: Hand - Right Description 2: Numbness, Tingling Frequency 2: Continuous Post Treatment Pain Post Treatment Pain Level: No Change Post Treatment Pain Location: Neck - Right PROMIS Scales Higher is Better 06/14/2023 05/17/2023 01/07/2021 Phys Func - Score 47 (within normal limits) 47 (within normal limits) 41 (mild dysfunction) Phys Func - Percentile 38 % 38 % 18 % Self-Eff Symptom - Score 40 (Average) 37 (Low) - Self-Eff Symptom - Percentile 16 % 10 % - T-scores: mean of general population = 50. 5 points is clinically meaningfully difference Percentiles provide an indication of how the patient's score ranks in relation to the general population. Higher percentile rankings indicate better function/quality of life. 50th percentile is the average of the general population and indicates half of respondents had a worse score. OBJECTIVE MEASURES WITH LEVEL OF FUNCTION: Posture / Alignment Posture: Forward head, Rounded shoulders, Elevated shoulder - right Spine Observations R Cervical Spine Palpation Tenderness: Upper trapezius, Levator scapulae Sensation - Cervical Spine Cervical Spine Sensation: Grossly Intact Cervical Spine ROM Cervical Flexion AROM: Normal Cervical Extension AROM: Normal Cervical Side-Bend Right AROM: Minimal limitation Cervical Side-Bend Left AROM: Minimal limitation Cervical Rotation Right AROM: Minimal limitation Cervical Rotation Left AROM: Minimal limitation UE and Cervical Strength R UE Strength: No asymmetrical myotomal weakness detected in B UEs. L UE Strength: No asymmetrical myotomal weakness detected in B UEs. R Middle Trapezius: 4+/5 R Lower Trapezius: 4+/5 R Rhomboid: 4+/5 L Middle Trapezius: 4+/5 L Lower Trapezius: 4+/5 L Rhomboid: 4+/5 Hand Strength R Picu Nurse Position 2 (lbs): 105 lbs L Picu Nurse Position 2 (lbs): 115 lbs TREATMENT: Therapeutic Exercise: 1: Open the Book, T/S Mobility: 2x15 ea. 2: Seated T/S Extension w/ ball on chair: 2x10. 3: RUE Wall Slides: 2x10, 2-3 hold. 4: *R Finger Spreading w/ rubber band: 2x10. 5: *R Finger Flexion & Extension w/ Powerweb: 2x10 ea. 6: Seated Banded ER: GTB around wrists: 2x15. 7: Standing Shoulder B Horz. ABD: 2x15, GTB. 8: *Wall [place]im[place]: 2x10, GTB. 9: *Progress Check & Objectives Taken*. Skilled Intervention: Patient was educated in proper exercise technique and purpose for exercises. Reviewed and educated patient on additions/changes for home exercise program as above (*). Skilled judgment was used in selection of appropriate interventions. Correct performance of therapeutic exercises was facilitated with verbal, visual, and tactile cuing. Manual Therapy: 1: Manual Cervical Traction: Pull to tolerance. Skilled Intervention: Manual skills to improve joint mobility, ROM, and decrease pain. Utilized anatomy knowledge of the therapist, and assessment of patient's response to intervention. Billing Therapeutic Exercise Treatment Minutes: 34 Manual TherapyTreatment Minutes: 8 Skilled Treatment Time Minutes (timed and untimed codes): 42 Total Session Time (minutes): 42 Session Start Time : 1200 Session Stop Time : 1242 Ayo Aguilar PT documented in this encounter [facility] 06-15-2023 History of Presen t illness Narrative Scan on 06/15/2023 9:47 AM by Provider, External, PANunuC: Consultation - Cardiology documented in this encounter [facility] 06-14-2023 History of Presen t illness Narrative Episode Visit Count: 5 Therapist That Will Accept/Oversee The Plan Of Care: Ayo Aguilar PT. Start of Care Date: 05/17/23 Onset Date: 03/08/23 Patient Identified by Name and Date of : Yes REHABILITATION AND SPORTS THERAPY PHYSICAL THERAPY TREATMENT NOTE ASSESSMENT: Jason Moore tolerated the session with decreased symptoms and expected muscle soreness. He demonstrated improvement in scapular control & no issues with added T/S mobility intervention this date. The patient will continue to benefit from ongoing skilled physical therapy to progress toward set goals. PLAN FOR NEXT VISIT: PC; Progress Scapular Strength and T/S Mobility; Picu Nurse Strength as tolerated. SUBJECTIVE: Patient reports same continued RUE numbness and neck stiffness/pressure, however no sharp pain. Pain: Pain Pain Level: 2 Pain Location: Neck - Right, Shoulder - Right Description: Tightness, Pressure Frequency: Continuous Additional Pain Information : Location 2 Pain Level 2: 2 Pain Location 2: Hand - Right Description 2: Numbness, Tingling Frequency 2: Continuous Post Treatment Pain Post Treatment Pain Level: Better Post Treatment Pain Location: Neck - Right, Shoulder - Right Post Treatment Symptoms: Decreased sxs in neck. OBJECTIVE MEASURES WITH LEVEL OF FUNCTION: Relief in sxs/pain with cervical traction. TREATMENT: Therapeutic Exercise: 1: Open the Book, T/S Mobility: 2x15 ea. 2: Seated Banded ER: GTB around wrists: 2x15. 3: Standing Shoulder B Horz. ABD: 3x15, GTB. 4: Seated T/S Extension w/ ball on chair: 2x10. 5: RUE Wall Slides: 2x10, 2-3 hold. Skilled Intervention: Patient was educated in proper exercise technique and purpose for exercises. Skilled judgment was used in selection of appropriate interventions. Correct performance of therapeutic exercises was facilitated with verbal, visual, and tactile cuing. Manual Therapy: 1: IaSTM to R Anterior Forearm/Wrist Flexors, where mass of soft tissue is located: Push to tolerance. 2: Manual Cervical Traction: Pull to tolerance. 3: STM to R UT, Levator and paraspinals: Push to tolerance. Skilled Intervention: Manual skills to improve joint mobility, ROM, and decrease pain. Utilized anatomy knowledge of the therapist, and assessment of patient's response to intervention. Billing Therapeutic Exercise Treatment Minutes: 23 Manual TherapyTreatment Minutes: 17 Skilled Treatment Time Minutes (timed and untimed codes): 40 Total Session Time (minutes): 40 Session Start Time : 1145 Session Stop Time : 1225 Ayo Aguilar PT documented in this encounter [facility] 06-08-2023 History of Presen t illness Narrative Episode Visit Count: 4 Therapist That Will Accept/Oversee The Plan Of Care: Ayo Aguilar PT. Start of Care Date: 05/17/23 Onset Date: 03/08/23 Patient Identified by Name and Date of : Yes REHABILITATION AND SPORTS THERAPY PHYSICAL THERAPY TREATMENT NOTE ASSESSMENT: Jason Moore tolerated the session with decreased symptoms, expected muscle soreness, and no issues. He demonstrated improvements in scapular strengthening and form of interventions without associated compensation from other muscles. The patient will continue to benefit from ongoing skilled physical therapy to progress toward set goals. PLAN FOR NEXT VISIT: Add Picu Nurse Strength as tolerated. SUBJECTIVE: Patient reports he is well; didn't sleep well; states R Shoulder tightness. Has noted improvement in neck pain and tightness; forearm pain and numbness hasn't been touched currently. Pain: Pain Pain Level: 2 Pain Location: Hand - Right Description: Numbness, Tingling Frequency: Continuous Post Treatment Pain Post Treatment Pain Level: No Change Post Treatment Pain Location: Hand - Right, Wrist - Right Post Treatment Symptoms: Scapular soreness, neck feels better, no change in numbness of hand. OBJECTIVE MEASURES WITH LEVEL OF FUNCTION: Tissue restrictions throughout RUT. TREATMENT: Therapeutic Exercise: 1: Open the Book, T/S Mobility: 2x12 2: *Seated Banded ER: GTB around wrists: 2x15. 3: Standing Rows: 2x15, GTB. 4: Standing Shoulder EXT: 2x15, GTB. 5: Standing Shoulder B Horz. ABD: 2x15, GTB. 6: *RUE Wall Slides: 1x10, 2-3 hold. Skilled Intervention: Patient was educated in proper exercise technique and purpose for exercises. Reviewed and educated patient on additions/changes for home exercise program as above (*). Skilled judgment was used in selection of appropriate interventions. Provided written instruction for home exercise program to facilitate proper performance and compliance. Correct performance of therapeutic exercises was facilitated with verbal, visual, and tactile cuing. Manual Therapy: 1: IaSTM to R Anterior Forearm/Wrist Flexors, where mass of soft tissue is located: Push to tolerance. 2: Manual Cervical Traction: Pull to tolerance. 3: STM to R UT, Levator and paraspinals: Push to tolerance. Skilled Intervention: Manual skills to improve joint mobility, ROM, and decrease pain. Utilized anatomy knowledge of the therapist, and assessment of patient's response to intervention. Billing Therapeutic Exercise Treatment Minutes: 25 Manual TherapyTreatment Minutes: 15 Skilled Treatment Time Minutes (timed and untimed codes): 40 Total Session Time (minutes): 40 Session Start Time : 1315 Session Stop Time : 1355 Ayo Aguilar PT documented in this encounter [facility] 05-28-2023 History of Presen t illness Narrative UNIVERSAL PROTOCOL / SAFETY CHECKLIST Procedure to be Performed: EMG Sign In: A Moment of CARE was completed. Personnel directly involved with the procedure wore the appropriate PPE (Personal Protective Equipment). Patient/Surrogate Stated/Verified: PATIENT VERIFIED(optional for EMERGENT procedures): Patient name, Date of , Relevant allergies, and The intended procedure Time Out Communication: Intended patient and procedure match the source documents. Correct side/site marked and visible. Sign Out: SIGN OUT (optional for EMERGENT procedures): Post-procedure follow-up management communicated and Plan of Care Visit completed when applicable. Marita Slater DO documented in this encounter [facility] 05-24-2023 History of Presen t illness Narrative Episode Visit Count: 2 Therapist That Will Accept/Oversee The Plan Of Care: Ayo Aguilar PT. Start of Care Date: 05/17/23 Onset Date: 03/08/23 Patient Identified by Name and Date of : Yes REHABILITATION AND SPORTS THERAPY PHYSICAL THERAPY TREATMENT NOTE ASSESSMENT: Jason Moore tolerated the session with expected muscle soreness and no issues. He demonstrated improvements in thoracic mobility this date. The patient will continue to benefit from ongoing skilled physical therapy to progress toward set goals. PLAN FOR NEXT VISIT: Progress scapular strength; increase thoracic mobility; manual PRN. SUBJECTIVE: Patient reports the stretches have helped, he does them before bed. Hasn't brought any long-term relief. EMG on 04/27. States he hasn't taken any ibuprofen or gabapentin today for pain, the neck is feeling really well. Pain: Pain Pain Level: 2 Pain Location: Hand - Right Description: Numbness, Tingling Frequency: Continuous Post Treatment Pain Post Treatment Pain Level: No Change Post Treatment Pain Location: Hand - Right, Wrist - Right OBJECTIVE MEASURES WITH LEVEL OF FUNCTION: Tenderness at R UT this date. TREATMENT: Therapeutic Exercise: 1: UT Stretch: 1x30 ea. 2: Levator Stretch: 1x30 ea. 3: R Median N [place]: 1x10, 1-2 holds. 4: R Median N Tensioner: 1x10, 2-3 tension hold. 5: Wrist Flexor Stretch: 1x30 RUE. 6: *Open the Book, T/S Mobility: 2x10 7: *Standing Rows: 2x12, GTB. Skilled Intervention: Patient was educated in proper exercise technique and purpose for exercises. Reviewed and educated patient on additions/changes for home exercise program as above (*). Skilled judgment was provided in selection of appropriate interventions. Provided written instruction for home exercise program to facilitate proper performance and compliance. Correct performance of therapeutic exercises was facilitated with verbal, visual, and tactile cuing. Manual Therapy: 1: STM with hands to R Upper Trap & Levator Scap: Push to tolerance. 2: Manual Cervical Traction: Pull to tolerance. 3: IaSTM to R UT, Levator and paraspinals: Push to tolerance. 4: IaSTM to R Anterior Forearm/Wrist Flexors, where mass of soft tissue is located: Push to tolerance. Skilled Intervention: Manual skills to improve joint mobility, ROM, and decrease pain. Utilized anatomy knowledge of the therapist, and assessment of patient's response to intervention. Billing Therapeutic Exercise Treatment Minutes: 15 Manual TherapyTreatment Minutes: 25 Skilled Treatment Time Minutes (timed and untimed codes): 40 Total Session Time (minutes): 40 Session Start Time : 1240 Session Stop Time : 1320 Ayo Aguilar PT documented in this encounter [facility] [facility] 05-20-2023 Miscellaneous Notes Left message on voicemail for patient to call office back or to read [employer] message. Dr. Fonseca wanted me to let patient know that the MRI was denied due to lack of PT recently but it does appear just started. She does recommend getting EMG as scheduled 05/28. pending results of EMG and progress in PT will be able to readdress denial. Left message on voicemail for patient to call office back. documented in this encounter [facility] 05-17-2023 History of Presen t illness Narrative Episode Visit Count: 1 Therapist That Will Accept/Oversee The Plan Of Care: Ayo Aguilar PT. 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 He presents with impairments in ADL's, overall function, patient reported outcome measures, posture, range of motion, strength, symptom management, and tissue tenderness. PROMIS (Patient-Reported Outcomes Measurement Information System) scores were reviewed and self efficacy domain identified as a rehabilitation concern. Prognosis for therapy is Fair due to: clinical presentation, chronic nature of impairments, Prognosis may be improved by good overall health status, acuteness of injury, good support system/ coping skills. He will benefit from skilled therapy services to meet the goals established for this plan of care as noted below. Goals for Episode of Care: created on 05/17/23 through 07/17/23 [place] in home exercise program. Patient will decrease pain rating by 2 points to meet minimal clinical important difference for numeric pain rating scale. Patient will demonstrate increase in B Scapular strength to 5/5 during manual muscle testing in order to improve function for home management tasks, leisure / recreation skills, light functional tasks, moderate to heavy functional tasks, and prior functional tasks. Patient will demonstrate increase in R Picu Nurse Strength to WNL compared to the L Picu Nurse during dynamometer testing (programming engineer). Patient will report at least a 50% decrease in R Hand/Digit symptoms and frequency. Restore & increase pain free cervical ROM to WNL to allow for improved functional mobility. Maintain proper sitting posture throughout the session to allow for decreased symptoms. Complete gripping/cooking/dicing foods/writing his name with no aggravation of pain/symptoms. Patient Goals: Alleviate hand numbness and tingling; improve programming engineer strength. Planned Interventions, Frequency, and Duration: Current Frequency: 2x/week Duration: 3 weeks Total Number of Visits Planned: 6 Planned Treatment Interventions: Therapeutic exercise (93858), Neuromuscular re-education (94794), Therapeutic activities (15280), Manual therapy (60240), Self-custodial management (78826), Patient/Family/Caregiver Education, Body Mechanics Training PLAN FOR NEXT VISIT: Assess current sxs and HEP; progress ther-ex as able; possible IaSTM to R Neck &/or FA; scapular strength and thoracic mobility. Patient demonstrates good understanding of plan of care and treatment. The above goals and plan of care were discussed and agreed upon by patient/family. SUBJECTIVE: Patient reports back in February/2023 he started having an insidious gradual worsening of R hand numbness/tingling, programming engineer strength/weakness, cramping in the right hand (affects all fingers); denies sxs in the neck/shoulder area, does describe pulsate spasms in the R forearm. Numbess/tingling and weakness is constant in the R hand. Low back has been good since toradol shot 04/08/23, and currently on Gabapentin. When the low back was hurting he was having L LBP pain with described paresthesias wrapping around anteriorly to the groin and down the leg - Patient Goals: Alleviate hand numbness and tingling; improve programming engineer strength. Functional Limitations: gripping, pinching, carrying, cooking, working (Dicing with knives/Stirring/Cooking; writing his name.) Prior Level of Function: Independent without limitations Relevant History Past Relevant Surgical Conditions: Comments Relevant Surgical Conditions Comments: Cervical Fusion 06/17/[address] Marcos --- L/S Disc Replacement approx. ~12 years ago. Right or Left Handed: Right Employment: Medically Disabled Recreation / Current Exercise: Previous band exercises for C/S fusion. Intake Information: Prescription present Previous Treatment: NSAIDs Falls Interview: No positive findings with falls interview Spine History Symptoms Location at Onset: Hand, Forearm Symptoms Since Onset: Unchanging Previous Episodes: Yes Sleep Affected by Pain: Not affected by pain Pain: Pain Pain Level: 2 Pain Location: Hand - Right Description: Numbness, Tingling Frequency: Continuous Post Treatment Pain Post Treatment Pain Level: No Change Post Treatment Pain Location: Hand - Right, Wrist - Right PROMIS Scales Higher is Better 05/17/2023 01/07/2021 Phys Func - Score 47 (within normal limits) 41 (mild dysfunction) Phys Func - Percentile 38 % 18 % Self-Eff Symptom - Score 37 (Low) - Self-Eff Symptom - Percentile 10 % - T-scores: mean of general population = 50. 5 points is clinically meaningfully difference Percentiles provide an indication of how the patient's score ranks in relation to the general population. Higher percentile rankings indicate better function/quality of life. 50th percentile is the average of the general population and indicates half of respondents had a worse score. OBJECTIVE MEASURES WITH LEVEL OF FUNCTION: Deep palpation of R Upper Trap & Levator Scap revealed soft tissue restrictions. When pressed on, the patient had radiating pain down the shoulder/deltoid. Posture / Alignment Posture: Forward head, Rounded shoulders, Elevated shoulder - right Spine Observations R Cervical Spine Palpation Tenderness: Upper trapezius, Levator scapulae, Paraspinals Sensation - Cervical Spine Cervical Spine Sensation: Grossly Intact Cervical Spine ROM Cervical ROM : Limitation AROM Cervical Flexion AROM: Minimal limitation Cervical Extension AROM: Minimal limitation Cervical Side-Bend Right AROM: Minimal limitation Cervical Side-Bend Left AROM: Minimal limitation Cervical Rotation Right AROM: Minimal limitation Cervical Rotation Left AROM: Minimal limitation UE AROM R UE AROM: Grossly WNL L UE AROM: Grossly WNL UE and Cervical Strength Strength Tested: Myotome Cervical/Shoulder, Scapula R UE Strength: No asymmetrical myotomal weakness detected in B UEs. L UE Strength: No asymmetrical myotomal weakness detected in B UEs. R Middle Trapezius: 4/5 R Lower Trapezius: 4/5 R Rhomboid: 4/5 L Middle Trapezius: 4+/5 L Lower Trapezius: 4+/5 L Rhomboid: 4+/5 Hand Strength R Picu Nurse Position 2 (lbs): 100 lbs L Picu Nurse Position 2 (lbs): 115 lbs Special Tests - Cervical Cervical Special Tests: Cervical Distraction, Spurling, Median Nerve, Ulnar Nerve, Radial Nerve Cervical Distraction: Negative Spurling: Right Negative, Left Negative Median Nerve: Right Negative Ulnar Nerve: Right Negative Radial Nerve: Right Negative Special Tests - Hip and Spine Special Test Comments: Phalen's, Reverse Phalen's and Flick Sign (R Neg.) Education: Education Learning/educational needs: Home exercise program, Plan of Care, Changes in Plan of Care, Posture, Body Mechanics TREATMENT: PT Treatment Interventions: Therapeutic Exercise, Manual Therapy, Self-Chcf Management Evaluation Therapeutic Exercise: 1: *R UT Stretch: 1x30 2: *R Levator Stretch: 1x30 3: *Seated Rhomboid Stretch: 1x30 4: *R Median N [place]: 1x5, 1-2 holds. 5: *R Median N Tensioner: 1x5, 2-3 tension hold. 6: *R Wrist Flexor Stretch: 1x30 7: *Scapular Retractions: 1x10 8: *Self-STM with tennis ball to R UT on wall: 2 minutes. Skilled Intervention: Patient was educated in proper exercise technique and purpose for exercises. Reviewed and educated patient on additions/changes for home exercise program as above (*). Skilled judgment was provided in selection of appropriate interventions. Provided written instruction for home exercise program to facilitate proper performance and compliance. Correct performance of therapeutic exercises was facilitated with verbal cuing. Manual Therapy: 1: STM with hands to R Upper Trap & Levator Scap: Push to tolerance. 2: Manual Cervical Traction: Pull to tolerance. (No change in R hand sxs; felt good however.) Skilled Intervention: Manual skills to improve joint mobility, ROM, and decrease pain. Utilized anatomy knowledge of the therapist, and assessment of patient's response to intervention. Self-Chcf Management: 1: *Education and discussion regarding anatomy of C/S related to current condition, pain&sxs, and deficits the patient is currently having. Education on radiograph findings and previous fusion compared to the patients current chief complaints. current objective deficits and how they relate to her presentation and overall pain/sxs. Education on tissue restrictions and how they can cause referring pain - Patient was shown and educated on different referral patterns for different muscles using pictures from Myofascial Pain and Dysfunction - The Trigger Point Manual. Patient was constantly reminded that he should stop any activity or exercise that increases his pain. The role of PT was explained and the patient agreed. 2: *Education and demonstration for use of tennis/lacrosse ball with self-STM on wall for tenderness in R C/S musculature. Skilled Intervention: Skilled judgment in the selection of proper modification for activity of daily living/home management based on clinical presentation, deficits, and needs. Reviewed patient specific diagnosis in relation to activities of daily living/home management. Activity progression based on professional judgement. Billing * Evaluation Low Complexity: 1 Unit Therapeutic Exercise Treatment Minutes: 10 Manual TherapyTreatment Minutes: 15 Self-Care/Home Management Treatment Minutes: 15 Skilled Treatment Time Minutes (timed and untimed codes): 60 Total Session Time (minutes): 60 Session Start Time : 1145 Session Stop Time : 1245 Ayo Aguilar PT documented in this encounter [facility] 05-13-2023 Miscellaneous Notes Spoke with patient. Given message from provider's office. Patient verbalizes understanding. Litzy Montague RN Please let patient know his paperwork has been completed for dates 03/31-05/05. Dr. Fonseca will have to complete paper work to keep him off since she has assumed care. Patient Dawson calling back she did locate letter dated 03/31/2023 when was off work by the [employer] provider Rosa M MCKEON at [facility]. called in to let you know pt saw Dr. Fonseca did not put pt off work, just agreed that pt couldn't work because he could not do his job. Pt has been off work since the first time pt saw Ashley Pugh. reports a plan was put together with medication and injections to get pt to apt 05/05/23. They were seen for apt and had the disability papers and when they tried to give to Dr. Fonseca, they were told pt was seen first by team of Dr. Rosario and they would need to fill out the paperwork. Pt has multiply apts for testing and in office apts. Please advise if this is going to be a problem Phuong Wise LPN Left message for patient to contact office. Patient dropped off Short term disability forms for Dr. Rosario to completed. I asked patient if he had seen patient for this and recently and he indicated yes. Last visit with Dr. Rosario was 10/2022 Saw Ashley Pugh 04/13/2023 for his back. Patient was referred to docketing specialist/orthopaedic surgeon. Paperwork given to PCP. Did Dr. Fonseca have patient off of work? Jaylan Zheng MA documented in this encounter [facility] 05-05-2023 Miscellaneous Notes 1st attempt. Called patient and left message that emg appt got changed from 05/27 to the . Please call back to make sure he is aware of this change. documented in this encounter [facility] 05-05-2023 Instructions Luiza Fonseca MD - 05/05/2023 10:30 AM EDT Images from the original note were not included. Acute Cervical Radiculopathy (Arm Pain) Overview: The symptoms of a pinched nerve in the neck (cervical radiculopathy) include arm pain, numbness, tingling and even weakness. Arm pain is usually worse than neck pain. The cause of the nerve impingement may include a protruding (herniated) disc, bony or joint overgrowth or both. The prognosis for full recovery with conservative (non surgical) treatment is good in most persons. Xrays or scans (MR or CT) are not required in most patients before starting treatment. Treatment: Pain-relieving anti-inflammatory medications such as ibuprofen or naproxen are recommended. Acetominophen (Tylenol) is recommended if you cannot take anti-inflammatory medications. If muscle spasm is present, a muscle relaxant for up to 2 weeks may be helpful. Medications effective for nerve pain such as gabapentin (Neurontin), pregabalin (Lyrica) or some antidepressants may be helpful for arm pain. A short course of oral steroids (prednisone or Medrol) may help alleviate severe, acute inflammation. Simple home exercises are recommended to speed recovery, relieve arm and neck pain and restore normal neck motion. A physical therapist may be helpful in customizing these exercises. Remaining as active as possible and resuming normal activities as tolerated is recommended. Spinal manipulation is not recommend for cervical radiculopathy and rarely causes severe injury. Follow up: See your health care provider if: The pain doesn t improve or worsens within 2 weeks You notice increasing weakness in the arm You notice difficulty using your hands (buttoning, picking up coins) You experience problems with balance or walking You notice difficulty passing your urine or controlling your bowels You notice numbness or tingling in below your waist or in your legs MD [facility], [id number] May 05, 2023 documented in this encounter [facility] 05-05-2023 History of Presen t illness Narrative Spine Care Path Radicular Arm Pain - Subacute (6 - 12 weeks) Initial Exam SUBJECTIVE HISTORY OF PRESENT ILLNESS: Jason Moore is a 52 year old male who presents with a chief complaint of low back, neck, arm, and leg pain and is seen in consultation requested by Ashley Pugh for an opinion. My final recommendations will be communicated back to the requesting physician by way of shared medical record or letter via US mail. H/o cervical fusion 06/17/[address] Marcos, and lumbar surgery apx 11-12 years ago in [place]. #1. R UE pain and numbness-main complaint per patient. Notes more intense the last 2 months. Notes similar to what he had surgery for. Overall surgery helped. Pain is R pectoral and forearm. R whole hand numbness that is constant. Some weakness of the R hand, was also having some prior to surgery and got better but now returned. Prior to surgery had PT and JOVAN w/o benefit hence the surgery. No recent PT Ibuprofen as needed Completed prednsione taper and notes helped. Prior medications-mobic, flexeril, prior gabapentin (helped). #2. Low back and L LE pain-buttock, posterolateral thigh, skips leg, whole foot. LE pain is sharp and stabbing. Whole foot numbness. Off and on for 1-2 years. This is better with steroid. 60% better or more with the steroid and not as bothersome now. Denies PT and injections. Different than symptoms for surgery. Seen Dr. Greenfield in 2010 for the lumbar issues and at the times surgery not recommended. PAIN EVALUATION 05/05/2023 0928 Pain Level: 3 Description: Aching;Sore;Radiating;Shooting Frequency: Intermittent Pain Ratio: R UE and hand most bothersome Patient Entered Questionnaires Spine Questions 01/07/2021 Pain Location: Arm Pain Duration: 1-3 months Symptoms from neck/cervical spine: Yes Employment Status: Other Off work 1 month or more due to back/neck pain: Does not apply Applied for/receive disability/WC due to low back/neck pain Does not apply Involved in law suit/legal claim: No Spine Red Flags 01/07/2021 Any type of cancer: No Unexplained fever: No Bowel or bladder disfunction: No Unintentional weight loss: No Osteoporosis: No Neck Questionnaires 01/07/2021 [place] Modified FERNIE Score Incomplete PROMIS Score Percentiles Physical Health 01/07/2021 Physical Function Percentile 18* Sleep Percentile 34 Fatigue Percentile 96 Pain Interference Percentile 4 PROMIS SOCIAL ROLE SCORE 01/07/2021 Social Role Satisfaction Percentile 8 PROMIS Global Health Scale 01/07/2021 Physical Health Percentile 41 Mental Health Percentile 89 Percentiles provide an indication of how the patient's score ranks in relation to the general population. Higher percentile rankings indicate better function/quality of life. 50th percentile is the average of the general population and indicates half of respondents had a worse score. Depression Screening: PHQ-9 07/09/2011 07/10/2016 01/07/2021 Score 18 0 0 PHQ-9 Self Harm 01/07/2021 Question 9 Not at all PHQ-9 Self-Harm (Item 9) response options: 0 Not at all 1 Several days 2 More than half the days 3 Nearly every day PHQ-9 Levels: 0-4 No - mild depression 5-9 Mild depression 10-14 Moderate depression 15-19 Moderately severe depression 20-27 Severe depression ACTIVE PROBLEM LIST Left-Sided Low Back Pain Without Sciatica Hypertension, Essential Mixed Hyperlipidemia Well Adult Exam Neurofibroma Family History of Colon Cancer Agoraphobia Situational Anxiety Fatty Liver Elevated Lfts Chronic Bilateral Low Back Pain Without Sciatica Prostate Cancer Screening Smoker Obesity, Class II, Bmi 35-39.9 Abdulaziz (Generalized Anxiety Disorder) Spinal Stenosis of Cervical Region Joselito (Obstructive Sleep Apnea) Lvh (Left Ventricular Hypertrophy) Ed (Erectile Dysfunction) of Organic Origin PAST MEDICAL HISTORY Diagnosis Date Alcohol use 07/10/2016 3-5 day Back pain Cervical radiculopathy 12/16/2020 Fatty liver 03/28/2016 Heart rate fast on BB Hypertension Hypertension, essential 06/28/2014 LVH (left ventricular hypertrophy) 11/05/2022 With grade 1 Solomon dysfunction. Mixed hyperlipidemia 06/28/2014 Obesity, Class II, BMI 35-39.9 12/16/2020 JOSELITO (obstructive sleep apnea) resolved with weight loss Spinal stenosis in cervical region Tachycardia, unspecified on BB PAST SURGICAL HISTORY Procedure Laterality Date ALLOGRAFT FOR SPINE SURGERY ONLY STRUCTURAL 08/30/2011 FUSION AND REPLACED DISC lumbar ANTERIOR INSTRUMENTATION 2-3 VERTEBRAL SEGMENTS APPL-INTERVERTEBRAL BIOMECHANICAL DEVICES COLONOSCOPY FLX DX W/COLLJ SPEC WHEN PFRMD 09/28/2014 Colonoscopy, repeat 5 yrs PAST SURGICAL HISTORY OF back injections and disc biopsy PAST SURGICAL HISTORY OF 06/17/2021 C5-C6, C6-C7 anterior cervical discectomy and fusion, Insertion of intervertebral interbody device at C5-C6, C6-C7, anterior spinal instrumentation C5-C7, Use of structural allograft Social History Tobacco Use Smoking status: Every Day Packs/day: 0.50 Years: 21.00 Additional pack years: 0.00 Total pack years: 10.50 Types: Cigarettes Smokeless tobacco: Never Vaping Use Vaping Use: Never used Substance Use Topics Alcohol use: Yes Alcohol/week: 12.0 standard drinks of alcohol Types: 12 Cans of Beer (12oz) per week Drug use: Never FAMILY HISTORY Problem Relation Age of Onset Colon Cancer Father 50 Diabetes Father Hypertension Father Prostate Cancer Father 54 Colon Cancer Paternal Grandfather Diabetes Paternal Grandfather Prostate Cancer Paternal Grandfather 50'S Colon Cancer Paternal Uncle LATE 50'S Coronary Artery Disease Maternal Aunt Diabetes Paternal Uncle Diabetes Paternal Aunt Hypertension Paternal Grandmother Hypertension Paternal Aunt Hypertension Paternal Uncle Hypertension Maternal Aunt Hypertension Maternal Aunt Prostate Cancer Paternal Uncle 50'S ALLERGIES Allergen Reactions Ativan [Lorazepam] GI Upset Paxil [Paroxetine H* GI Upset diarrhea Zoloft [Sertraline] GI Upset CURRENT MEDICATIONS: amLODIPine (NORVASC) 10 mg tablet Take 1 tablet by mouth once daily. lisinopril (ZESTRIL) 40 mg tablet Take 1 tablet by mouth once daily. hydroCHLOROthiazide 25 mg tablet Take 1 tablet by mouth once daily. Tadalafil (CIALIS) 20 mg tab(s) Take 1 tablet by mouth once daily. As needed. REVIEW OF SYSTEMS: See above OBJECTIVE: PHYSICAL EXAM Resp 16 Ht 175.3 cm (5' 9) Wt 115.2 kg (254 lb) BMI 37.51 kg/m General: Pleasant individual in NAD Mental Status: Oriented to person place and time. Displays appropriate mood and affect. GAIT: Gait is normal. Gross Motor: tandem gait is normal. Strength Testing: Bilateral upper and lower extremity strength is normal and symmetric. Sensation: No loss of sensation is noted. Neuro: Bilateral upper and lower extremity coordination and muscle stretch reflexes are 1+ and symmetric. Plantar response are downgoing. Negative marcos's Spine Range of Motion: Normal range of motion with pain reproduction with R rotation Peripheral Joint ROM: Peripheral joint ROM appears full and pain free without obvious instability or laxity in all four extremities. Provocative Maneuvers: Shoulder, hip, sacroiliac provocative maneuvers are negative. Negative R spurling's Straight Leg Raising: Straight leg raising in the sitting and supine positions is negative to radicular pain. Palpation: Inspection and palpatory examination of the spine upper/lower extremities is unremarkable except for cervical paraspinal tenderness. Also has R forearm soft tissue mass-suspect cyst. Peripheral Vascular:. No obvious extremity swelling in all 4 extremities. Appearance of Skin: Skin inspection of the trunk, bilateral upper and lower extremities is unremarkable except for well healed incision. Data Review: Lumbar x-ray 04/08/20239290-antp-sn changes Cervical [id number] changes C5 thru C7- 05/2021 Cervical MRI 01/23/2021 IMPRESSION: Multilevel degenerative changes throughout the cervical spine (see full level by level discussion above). Of significance, right paracentral disc extrusion at C6-C7 contributes to severe narrowing of the right proximal neural foramen at this level. Severe left foraminal narrowing seen at C5-C6. Foraminal narrowing of up to a moderate degree at additional cervical levels. Canal stenosis of up to a moderate degree seen at multiple levels. ASSESSMENT/PLAN Subacute R UE pain with noted whole R hand numbness and weakness. Patient is s/p cervical surgery C5 thru C7 07/18/[address] Marcos for similar symptoms and notes improvement until the last 2 months. Is concerned regarding strength issues. Additional evaluation recommended. Suspect C6 radiculopathy component. cervical x-ray with flexion/extension view f/u on instrumentation. Will also check MRI for recurrent disc herniation. R UE EMG-may be some peripheral component. Hand consult for the likely forearm cyst. Low back and L LE-chronic intermittent, much better s/p oral steroid. Suspect L4/5 radicular issues. H/o lumbar surgery and lumbar DDD w/o myelopathy. As better will hold on PT for this and focus on the R UE which is most bothersome. May consider in future given this is chronic/intermittent. Gabapentin trial as tolerated-potential side effects reviewed. Helped in past. F/U: after above, pending review plan will be tailored accordingly. Luiza Fonseca MD The above plan and management options were discussed at length with patient. Patient is in agreement with the above and verbalized understanding. Patient instructed to call/seek urgent medical care with worsening of symptoms or change of neurological status. Patient provided with office contact. SIGNATURE: Luiza Fonseca MD PATIENT NAME: Jason Moore DATE: May 05, 2023 TIME: 9:52 AM documented in this encounter [facility] 04-13-2023 History of Presen t illness Narrative Chief Complaint Patient presents with: Follow Up HPI Jason Moore is a 52 year old male who presents here today for Above Complaints.. Patient presents to follow up on back pain. Patient was referred to spine specialists and has an appointment for May 05. Patient received toradol shot in office 04/08 which he reports was effective as pain has been reduced. Past medical history, appointments, medications, allergies reviewed. Previous Medical History PAST MEDICAL HISTORY Diagnosis Date Alcohol use 07/10/2016 3-5 day Back pain Cervical radiculopathy 12/16/2020 Fatty liver 03/28/2016 Heart rate fast on BB Hypertension Hypertension, essential 06/28/2014 LVH (left ventricular hypertrophy) 11/05/2022 With grade 1 Solomon dysfunction. Mixed hyperlipidemia 06/28/2014 Obesity, Class II, BMI 35-39.9 12/16/2020 JOSELITO (obstructive sleep apnea) resolved with weight loss Spinal stenosis in cervical region Tachycardia, unspecified on BB Previous Surgical History PAST SURGICAL HISTORY Procedure Laterality Date ALLOGRAFT FOR SPINE SURGERY ONLY STRUCTURAL 08/30/2011 FUSION AND REPLACED DISC lumbar ANTERIOR INSTRUMENTATION 2-3 VERTEBRAL SEGMENTS APPL-INTERVERTEBRAL BIOMECHANICAL DEVICES COLONOSCOPY FLX DX W/COLLJ SPEC WHEN PFRMD 09/28/2014 Colonoscopy, repeat 5 yrs PAST SURGICAL HISTORY OF back injections and disc biopsy PAST SURGICAL HISTORY OF 06/17/2021 C5-C6, C6-C7 anterior cervical discectomy and fusion, Insertion of intervertebral interbody device at C5-C6, C6-C7, anterior spinal instrumentation C5-C7, Use of structural allograft Family History FAMILY HISTORY Problem Relation Age of Onset Colon Cancer Father 50 Diabetes Father Hypertension Father Prostate Cancer Father 54 Colon Cancer Paternal Grandfather Diabetes Paternal Grandfather Prostate Cancer Paternal Grandfather 50'S Colon Cancer Paternal Uncle LATE 50'S Coronary Artery Disease Maternal Aunt Diabetes Paternal Uncle Diabetes Paternal Aunt Hypertension Paternal Grandmother Hypertension Paternal Aunt Hypertension Paternal Uncle Hypertension Maternal Aunt Hypertension Maternal Aunt Prostate Cancer Paternal Uncle 50'S Patient Allergies ALLERGIES Allergen Reactions Ativan [Lorazepam] GI Upset Paxil [Paroxetine H* GI Upset diarrhea Zoloft [Sertraline] GI Upset Current Medications Current Outpatient Medications on File Prior to Visit Medication Sig amLODIPine (NORVASC) 10 mg tablet Take 1 tablet by mouth once daily. lisinopril (ZESTRIL) 40 mg tablet Take 1 tablet by mouth once daily. hydroCHLOROthiazide 25 mg tablet Take 1 tablet by mouth once daily. Tadalafil (CIALIS) 20 mg tab(s) Take 1 tablet by mouth once daily. As needed. No current facility-administered medications on file prior to visit. Social History Social History Tobacco Use Smoking status: Every Day Packs/day: 0.50 Years: 21.00 Additional pack years: 0.00 Total pack years: 10.50 Types: Cigarettes Smokeless tobacco: Never Vaping Use Vaping Use: Never used Substance Use Topics Alcohol use: Yes Alcohol/week: 12.0 standard drinks of alcohol Types: 12 Cans of Beer (12oz) per week Drug use: Never Review of Symptoms REVIEW OF SYSTEMS SEE HPI EXAM: BP 132/80 Pulse 94 Resp 16 Wt 116.1 kg (256 lb) BMI 37.80 kg/m General Appearance: Well appearing, alert, in no acute distress, well-hydrated, well nourished.. Musculoskeletal: No joint swelling, deformity, or tenderness. Health Maintenance List COVID-19 VACCINE(3 - Moderna series) due on 02/13/2021 SHINGRIX VACCINE(1 of 2) Never done PNEUMOCOCCAL(1 - PCV) due on 10/06/2023 INFLUENZA(1) due on 04/30/2023 BP CONTROLLED (<130/80) due on 11/06/2023 ANNUAL PCP TEAM CHRONIC DISEASE VISIT due on 04/08/2024 DTAP,TDAP,TD(2 - Td or Tdap) due on 06/28/2024 DIABETES SCREEN due on 04/08/2026 LIPID SCREEN due on 10/05/2027 COLORECTAL CANCER SCREENING due on 02/04/2028 DEPRESSION ASSESSMENT Completed HEPATITIS C SCREENING Completed HIV SCREENING Completed HEPATITIS B Discontinued ASSESSMENT/PLAN: 1. Acute midline low back pain without sciatica - ICD9: 724.2, ICD10: M54.50 - KETOROLAC 60 MG/2 ML INTRAMUSCULAR SOLUTION - PREDNISONE 10 MG TABLET Ashley Pugh APRN.CNP documented in this encounter [facility] 04-09-2023 Miscellaneous Notes 1st call attempt, left vm Call to pt and notified him of results, verbalized understanding. Declined transfer to Scheduling due to driving. Asked for call back. Casi Zee Ma Please let patient know his labs are stable. Patient notified. Schedulers please contact patient to schedule ortho Jadon Martinez Cma Please let patient know his xray shows moderated degenerative changes. I have entered consult to orthopedics for evaluation. documented in this encounter [facility] 04-08-2023 History of Presen t illness Narrative Radiology Service Progress Note PATIENT NAME: Jason Moore DATE OF SERVICE: April 08, 2023 TIME: 8:22 AM PATIENT IDENTITY VERIFICATION COMPLETED USING TWO (2) IDENTIFIERS: Name and Date of confirmed by patient verbally. FALL SCREENING: Has the patient had 2 falls in the last year or 1 fall with injury or currently using an Ambulatory Assistive Device (Walker, Cane, Wheelchair, Crutches, etc.)? No PATIENT GENDER DATA: Male PATIENT RELEVANT IMPLANT DATA REVIEWED: Yes RADIOLOGY DEPARTMENT: General X-ray: Exam(s) Completed: Spine X-Ray(s): Lumbar AP / LAT / L5-S1 / FLEX-EXT PERIPHERAL IV DATA: Not applicable SIGNED BY: RT Mando(R) April 08, 2023 8:22 AM documented in this encounter [facility] 02-03-2023 History and physical note UPDATED HISTORY AND PHYSICAL EXAMINATION SERVICE DATE: 02/03/2023 SERVICE TIME: 9:37 PHYSICAL EXAM MUST BE COMPLETED ON ADMISSION The History and Physical (completed in the past 30 days) has been reviewed and the patient has been examined. The contents accurately reflect the patient's condition with the following additions or revisions since the H&P was completed. Examination indicates no changes. This H&P can be found in the Electronic Medical Record . SIGNATURE: Viktoria Tavera MD PATIENT NAME: Jason Moore DATE: February 03, 2023 TIME: 9:38 AM Source Note - Viktoria Tavera MD - 02/03/2023 10:00 AM EDT HISTORY AND PHYSICAL Jason Moore 1970 REFERRING PHYSICIAN: Fifi Pierre PA-C CHIEF COMPLAINT: Consult (Colonoscopy consult) HPI: The patient is a 51 year old male referred for endoscopy. Jason notes no colon complaints. Patient denies any change in bowel habits, weight changes, blood in stools, black tarry stools or abdominal pain. Notes family history of colon cancer in father, uncle and grandfather. The patient notes no upper GI complaints. Jason has undergone prior endoscopy. Last colonoscopy 09/28/[address] Hillman. No concerning findings, 5 year repeat colonoscopy recommended based on family history. Patient was sent to ED after recent family med visit on 10/06/22 at which time he had abnormal EKG findings. Notes reviewed. Patient had echo showing severe LVH and normal EF, per patient was felt to be related to his elevated blood pressure. He was advised to follow up with cardiology and have stress test completed, has not yet had this done. Patient denies problems with sedation in the past. PAST MEDICAL HISTORY PAST MEDICAL HISTORY Diagnosis Date Alcohol use 07/10/2016 3-5 day Back pain Cervical radiculopathy 12/16/2020 Fatty liver 03/28/2016 Heart rate fast on BB Hypertension Hypertension, essential 06/28/2014 LVH (left ventricular hypertrophy) 11/05/2022 With grade 1 Solomon dysfunction. Mixed hyperlipidemia 06/28/2014 Obesity, Class II, BMI 35-39.9 12/16/2020 JOSELITO (obstructive sleep apnea) resolved with weight loss Spinal stenosis in cervical region Tachycardia, unspecified on BB PAST SURGICAL HISTORY PAST SURGICAL HISTORY Procedure Laterality Date ALLOGRAFT FOR SPINE SURGERY ONLY STRUCTURAL 08/30/2011 FUSION AND REPLACED DISC lumbar ANTERIOR INSTRUMENTATION 2-3 VERTEBRAL SEGMENTS APPL-INTERVERTEBRAL BIOMECHANICAL DEVICES COLONOSCOPY FLX DX W/COLLJ SPEC WHEN PFRMD 09/28/2014 Colonoscopy, repeat 5 yrs PAST SURGICAL HISTORY OF back injections and disc biopsy PAST SURGICAL HISTORY OF 06/17/2021 C5-C6, C6-C7 anterior cervical discectomy and fusion, Insertion of intervertebral interbody device at C5-C6, C6-C7, anterior spinal instrumentation C5-C7, Use of structural allograft CURRENT MEDICATIONS Current Outpatient Medications Medication Sig amLODIPine (NORVASC) 5 mg tablet Take by mouth once daily. Take 1 tablet daily Tadalafil (CIALIS) 20 mg tab(s) Take 1 tablet by mouth once daily. As needed. lisinopril-hydroCHLOROthiazide (PRINZIDE,ZESTORETIC) 20-12.5 mg per tablet Take 1 tablet by mouth every morning. No current facility-administered medications for this visit. ALLERGIES: Ativan [Lorazepam], Paxil [Paroxetine Hcl], and Zoloft [Sertraline] PERSONAL HISTORY: SOCIAL HISTORY Social History Tobacco Use Smoking status: Every Day Packs/day: 0.50 Years: 21.00 Pack years: 10.50 Types: Cigarettes Smokeless tobacco: Never Vaping Use Vaping Use: Never used Substance Use Topics Alcohol use: Yes Alcohol/week: 8.0 - 12.0 standard drinks Types: 8 - 12 Cans of Beer (12oz) per week Comment: 3-4 beers per day Drug use: Never FAMILY HISTORY: FAMILY HISTORY FAMILY HISTORY Problem Relation Age of Onset Colon Cancer Father 50 Diabetes Father Hypertension Father Prostate Cancer Father 54 Colon Cancer Paternal Grandfather Diabetes Paternal Grandfather Prostate Cancer Paternal Grandfather 50'S Colon Cancer Paternal Uncle LATE 50'S Coronary Artery Disease Maternal Aunt Diabetes Paternal Uncle Diabetes Paternal Aunt Hypertension Paternal Grandmother Hypertension Paternal Aunt Hypertension Paternal Uncle Hypertension Maternal Aunt Hypertension Maternal Aunt Prostate Cancer Paternal Uncle 50'S REVIEW OF SYMPTOMS: The review of systems data was entered by the nurse and reviewed by fl Nursing Notes: Tiana Grissom RN 2022 9:43 AM Signed REVIEW OF SYSTEMS: General: The patient denies fatigue, denies weight loss, denies weight gain, denies feeling hot, and denies feelings of cold. Eyes: The patient denies glaucoma, denies eye injury/surgery, wears glasses or contacts. Ear/Nose/Throat: The patient denies allergies, denies hayfever, denies ear infections, and denies bloody noses. Cardiovascular: The patient denies chest pain, denies heart disease, NOTES high blood pressure,denies cardiac stent, denies prior heart attack, denies irregular heart beat, NOTES high cholesterol, denies poor circulation, NOTES heart failure, other cardiac issues, denies claudication, denies cold feet, denies peripheral arterial stent. Respiratory: The patient denies tuberculosis, denies pneumonia, denies frequent cough, denies pulmonary embolism, denies shortness of breath, and denies coughing up blood. Gastrointestinal: The patient denies difficulty swallowing, denies acid reflux, denies ulcers, denies vomiting, denies jaundice/hepatitis, denies gallbladder problems, denies black or tarry stools, denies hemorrhoids, denies bleeding from rectum, denies diverticulitis, denies constipation, denies diarrhea, denies loss of stool control, and denies hernias. Kidney/Bladder: The patient denies kidney stones, denies urine infections, and denies bloody urine. Skin: The patient denies a history of skin cancer, denies bleeding/changing moles, and denies a history of skin rash. Neurologic: The patient denies a history of epilepsy/convulsions, denies headaches, denies head/spinal injuries, and denies stroke/TIA. Psychiatric: The patient denies psychiatric medications, denies depression, and denies voices, denies substance abuse. Endocrine: The patient denies thyroid disorders, denies diabetes, and denies hormonal problems. Hematologic: The patient denies a history of bruising, denies bleeding, and denies anemia, denies blood clots. Infections: The patient denies a history of measles and mumps, denies rheumatic fever, and denies sexually transmitted diseases. Musculoskeletal: The patient NOTES back pain/injury, NOTES back problems, denies sciatica, denies knee/foot trouble, denies arthritis, or denies gout. When was patient's last Mammogram screening? N/A Last Colonoscopy: 2014 Tiana Grissom RN I have confirmed and edited as necessary, the PFSH and ROS obtained by others. Mainor Pandey PA-C PHYSICAL EXAMINATION: General: The patient is 51 year old male, well nourished, well hydrated in no acute distress. The patient is oriented to time, place, and person. VITALS: Blood pressure 130/78, pulse 111, temperature 36.7 C (98 F), height 175.3 cm (5' 9), weight 116.9 kg (257 lb 12.8 oz), SpO2 99 %. Body mass index is 38.07 kg/m . HEENT: Normal cephalic, ataumatic, pupils are equally round, sclera are anicteric, mucous membranes are moist, oropharynx is clear. Neck has no masses, asymmetry or lymphadenopathy. Respiratory: Clear to auscultation and percussion. Normal respiratory excursion and pattern. Cardiac: Examination is regular rate and rhythm. Normal S1/S2 Abdominal exam: Soft, nontender, with no palpable masses. No hepatosplenomegaly. No palpable hernias. Extremities: no clubbing, cyanosis or edema. No adenopathy. LABORATORY VALUES: As Noted RADIOLOGIC STUDIES: As Noted Assessment IMPRESSION: strong family history of colon cancer, encounter for high-risk screening colonoscopy PLAN: I have reviewed my findings with the surgeon. Will plan for lower endoscopy. We discussed the risks and benefits of the planned endoscopy. I have informed the patient that complications can occur including failure to complete the endoscopy and perforation. The patient had the opportunity to ask questions concerning the planned endoscopy. My staff has also explained the procedure to the patient in understandable terms and has given the patient printed material concerning the procedure. The patient freely consents to surgery. The patient was offered a surgery/procedure at a [facility] facility. I have counseled the patient regarding the risk of exposure to and/or potential harm posed by the COVID-19 virus with having a surgery/procedure at this time versus the risk of delaying the surgery/procedure. It is not possible to know either the risk of delaying the surgery or procedure or chance of getting an infection with perfect accuracy, but a joint decision was made between the patient and myself to proceed at this time with endoscopy. I plan to use Golytely bowel preparation We will plan for Monitored Anesthetic Care. Cardiac clearance-Dr. Dunn Diagnoses: (Z12.11) Screening for colon cancer (Z80.0) Family history of colon cancer Consultation requested by Fifi Pierre PA-C for an opinion regarding screening colonoscopy. My final recommendations will be communicated back to the requesting physician by way of shared Medical record or letter to requesting physician via US mail. Mainor Pandey PA-C HISTORY AND PHYSICAL Jason Moore 1970 REFERRING PHYSICIAN: Fifi Pierre PA-C CHIEF COMPLAINT: Consult (Colonoscopy consult) HPI: The patient is a 51 year old male referred for endoscopy. Jason notes no colon complaints. Patient denies any change in bowel habits, weight changes, blood in stools, black tarry stools or abdominal pain. Notes family history of colon cancer in father, uncle and grandfather. The patient notes no upper GI complaints. Jason has undergone prior endoscopy. Last colonoscopy 09/28/[address] Hillman. No concerning findings, 5 year repeat colonoscopy recommended based on family history. Patient was sent to ED after recent family med visit on 10/06/22 at which time he had abnormal EKG findings. Notes reviewed. Patient had echo showing severe LVH and normal EF, per patient was felt to be related to his elevated blood pressure. He was advised to follow up with cardiology and have stress test completed, has not yet had this done. Patient denies problems with sedation in the past. PAST MEDICAL HISTORY PAST MEDICAL HISTORY Diagnosis Date Alcohol use 07/10/2016 3-5 day Back pain Cervical radiculopathy 12/16/2020 Fatty liver 03/28/2016 Heart rate fast on BB Hypertension Hypertension, essential 06/28/2014 LVH (left ventricular hypertrophy) 11/05/2022 With grade 1 Solomon dysfunction. Mixed hyperlipidemia 06/28/2014 Obesity, Class II, BMI 35-39.9 12/16/2020 JOSELITO (obstructive sleep apnea) resolved with weight loss Spinal stenosis in cervical region Tachycardia, unspecified on BB PAST SURGICAL HISTORY PAST SURGICAL HISTORY Procedure Laterality Date ALLOGRAFT FOR SPINE SURGERY ONLY STRUCTURAL 08/30/2011 FUSION AND REPLACED DISC lumbar ANTERIOR INSTRUMENTATION 2-3 VERTEBRAL SEGMENTS APPL-INTERVERTEBRAL BIOMECHANICAL DEVICES COLONOSCOPY FLX DX W/COLLJ SPEC WHEN PFRMD 09/28/2014 Colonoscopy, repeat 5 yrs PAST SURGICAL HISTORY OF back injections and disc biopsy PAST SURGICAL HISTORY OF 06/17/2021 C5-C6, C6-C7 anterior cervical discectomy and fusion, Insertion of intervertebral interbody device at C5-C6, C6-C7, anterior spinal instrumentation C5-C7, Use of structural allograft CURRENT MEDICATIONS Current Outpatient Medications Medication Sig amLODIPine (NORVASC) 5 mg tablet Take by mouth once daily. Take 1 tablet daily Tadalafil (CIALIS) 20 mg tab(s) Take 1 tablet by mouth once daily. As needed. lisinopril-hydroCHLOROthiazide (PRINZIDE,ZESTORETIC) 20-12.5 mg per tablet Take 1 tablet by mouth every morning. No current facility-administered medications for this visit. ALLERGIES: Ativan [Lorazepam], Paxil [Paroxetine Hcl], and Zoloft [Sertraline] PERSONAL HISTORY: SOCIAL HISTORY Social History Tobacco Use Smoking status: Every Day Packs/day: 0.50 Years: 21.00 Pack years: 10.50 Types: Cigarettes Smokeless tobacco: Never Vaping Use Vaping Use: Never used Substance Use Topics Alcohol use: Yes Alcohol/week: 8.0 - 12.0 standard drinks Types: 8 - 12 Cans of Beer (12oz) per week Comment: 3-4 beers per day Drug use: Never FAMILY HISTORY: FAMILY HISTORY FAMILY HISTORY Problem Relation Age of Onset Colon Cancer Father 50 Diabetes Father Hypertension Father Prostate Cancer Father 54 Colon Cancer Paternal Grandfather Diabetes Paternal Grandfather Prostate Cancer Paternal Grandfather 50'S Colon Cancer Paternal Uncle LATE 50'S Coronary Artery Disease Maternal Aunt Diabetes Paternal Uncle Diabetes Paternal Aunt Hypertension Paternal Grandmother Hypertension Paternal Aunt Hypertension Paternal Uncle Hypertension Maternal Aunt Hypertension Maternal Aunt Prostate Cancer Paternal Uncle 50'S REVIEW OF SYMPTOMS: The review of systems data was entered by the nurse and reviewed by me Nursing Notes: Tiana Grissom RN 2022 9:43 AM Signed REVIEW OF SYSTEMS: General: The patient denies fatigue, denies weight loss, denies weight gain, denies feeling hot, and denies feelings of cold. Eyes: The patient denies glaucoma, denies eye injury/surgery, wears glasses or contacts. Ear/Nose/Throat: The patient denies allergies, denies hayfever, denies ear infections, and denies bloody noses. Cardiovascular: The patient denies chest pain, denies heart disease, NOTES high blood pressure,denies cardiac stent, denies prior heart attack, denies irregular heart beat, NOTES high cholesterol, denies poor circulation, NOTES heart failure, other cardiac issues, denies claudication, denies cold feet, denies peripheral arterial stent. Respiratory: The patient denies tuberculosis, denies pneumonia, denies frequent cough, denies pulmonary embolism, denies shortness of breath, and denies coughing up blood. Gastrointestinal: The patient denies difficulty swallowing, denies acid reflux, denies ulcers, denies vomiting, denies jaundice/hepatitis, denies gallbladder problems, denies black or tarry stools, denies hemorrhoids, denies bleeding from rectum, denies diverticulitis, denies constipation, denies diarrhea, denies loss of stool control, and denies hernias. Kidney/Bladder: The patient denies kidney stones, denies urine infections, and denies bloody urine. Skin: The patient denies a history of skin cancer, denies bleeding/changing moles, and denies a history of skin rash. Neurologic: The patient denies a history of epilepsy/convulsions, denies headaches, denies head/spinal injuries, and denies stroke/TIA. Psychiatric: The patient denies psychiatric medications, denies depression, and denies voices, denies substance abuse. Endocrine: The patient denies thyroid disorders, denies diabetes, and denies hormonal problems. Hematologic: The patient denies a history of bruising, denies bleeding, and denies anemia, denies blood clots. Infections: The patient denies a history of measles and mumps, denies rheumatic fever, and denies sexually transmitted diseases. Musculoskeletal: The patient NOTES back pain/injury, NOTES back problems, denies sciatica, denies knee/foot trouble, denies arthritis, or denies gout. When was patient's last Mammogram screening? N/A Last Colonoscopy: 2014 Tiana Grissom RN I have confirmed and edited as necessary, the PFSH and ROS obtained by others. Mainor Pandey PA-C PHYSICAL EXAMINATION: General: The patient is 51 year old male, well nourished, well hydrated in no acute distress. The patient is oriented to time, place, and person. VITALS: Blood pressure 130/78, pulse 111, temperature 36.7 C (98 F), height 175.3 cm (5' 9), weight 116.9 kg (257 lb 12.8 oz), SpO2 99 %. Body mass index is 38.07 kg/m . HEENT: Normal cephalic, ataumatic, pupils are equally round, sclera are anicteric, mucous membranes are moist, oropharynx is clear. Neck has no masses, asymmetry or lymphadenopathy. Respiratory: Clear to auscultation and percussion. Normal respiratory excursion and pattern. Cardiac: Examination is regular rate and rhythm. Normal S1/S2 Abdominal exam: Soft, nontender, with no palpable masses. No hepatosplenomegaly. No palpable hernias. Extremities: no clubbing, cyanosis or edema. No adenopathy. LABORATORY VALUES: As Noted RADIOLOGIC STUDIES: As Noted Assessment IMPRESSION: strong family history of colon cancer, encounter for high-risk screening colonoscopy PLAN: I have reviewed my findings with the surgeon. Will plan for lower endoscopy. We discussed the risks and benefits of the planned endoscopy. I have informed the patient that complications can occur including failure to complete the endoscopy and perforation. The patient had the opportunity to ask questions concerning the planned endoscopy. My staff has also explained the procedure to the patient in understandable terms and has given the patient printed material concerning the procedure. The patient freely consents to surgery. The patient was offered a surgery/procedure at a [facility] facility. I have counseled the patient regarding the risk of exposure to and/or potential harm posed by the COVID-19 virus with having a surgery/procedure at this time versus the risk of delaying the surgery/procedure. It is not possible to know either the risk of delaying the surgery or procedure or chance of getting an infection with perfect accuracy, but a joint decision was made between the patient and myself to proceed at this time with endoscopy. I plan to use Golytely bowel preparation We will plan for Monitored Anesthetic Care. Cardiac clearance-Dr. Dunn Diagnoses: (Z12.11) Screening for colon cancer (Z80.0) Family history of colon cancer Consultation requested by Fifi Pierre PA-C for an opinion regarding screening colonoscopy. My final recommendations will be communicated back to the requesting physician by way of shared Medical record or letter to requesting physician via [place] mail. Mainor Pandey PA-C documented in this encounter [facility] 01-28-2023 Miscellaneous Notes The following approved medication requests have been transmitted electronically. Requested Prescriptions Signed Prescriptions Disp Refills amLODIPine (NORVASC) 10 mg tablet 90 tablet 1 Sig: Take 1 tablet by mouth once daily. Authorizing Provider: COLTON ROSARIO lisinopril (ZESTRIL) 40 mg tablet 90 tablet 1 Sig: Take 1 tablet by mouth once daily. Authorizing Provider: COLTON ROSARIO hydroCHLOROthiazide 25 mg tablet 90 tablet 1 Sig: Take 1 tablet by mouth once daily. Authorizing Provider: COLTON ROSARIO MD called and pt is in need of refills on medications. In Epic the 2 medicaitons for blood pressure he is no longer taking. Amlodipine 5 mg and Lisinopril-HCTZ combination. Please remove both from pt's med list. Pt has been on the following 3 medications since he was in hospital last, several months ago. Pt now needs refills on the them. Please review before sending. If you have any questions please contact . Phuong Wise LPN Patient has been identified by name and date of : Yes, Provider Dr. Rosario Date 01/28/23 Time 1:51 pm Spouse phones for refill(s): Requested Prescriptions Pending Prescriptions Disp Refills amLODIPine (NORVASC) 10 mg tablet 90 tablet 1 Sig: Take 1 tablet by mouth once daily. lisinopril (ZESTRIL) 40 mg tablet 90 tablet 1 Sig: Take 1 tablet by mouth once daily. hydroCHLOROthiazide 25 mg tablet 90 tablet 1 Sig: Take 1 tablet by mouth once daily. Date of last office visit in primary care: 11/05/22 next apt 04/08/23 Last 2 Encounter Wt Readings: Date: Wt: 01/22/2023 117.8 kg (259 lb 9.6 oz) 11/11/2022 116.9 kg (257 lb 12.8 oz) Previous labs/tests for medication: Blood Pressure: BUN (mg/dL) Date Value 10/05/2022 10 03/12/2020 9 Sodium (mmol/L) Date Value 10/05/2022 133 03/12/2020 138 Last 1 Encounter BP Readings: Date: BP: 01/22/2023 140/82 Please advise. Thank you. Phuong Wise LPN documented in this encounter [facility] 12-21-2022 History of Presen t illness Narrative Scan on 12/17/2022 4:31 PM by External Provider: Consultation - Cardiology Jaylan Zheng MA documented in this encounter [facility] 2022 Nurse Note REVIEW OF SYSTEMS: General: The patient denies fatigue, denies weight loss, denies weight gain, denies feeling hot, and denies feelings of cold. Eyes: The patient denies glaucoma, denies eye injury/surgery, wears glasses or contacts. Ear/Nose/Throat: The patient denies allergies, denies hayfever, denies ear infections, and denies bloody noses. Cardiovascular: The patient denies chest pain, denies heart disease, NOTES high blood pressure,denies cardiac stent, denies prior heart attack, denies irregular heart beat, NOTES high cholesterol, denies poor circulation, NOTES heart failure, other cardiac issues, denies claudication, denies cold feet, denies peripheral arterial stent. Respiratory: The patient denies tuberculosis, denies pneumonia, denies frequent cough, denies pulmonary embolism, denies shortness of breath, and denies coughing up blood. Gastrointestinal: The patient denies difficulty swallowing, denies acid reflux, denies ulcers, denies vomiting, denies jaundice/hepatitis, denies gallbladder problems, denies black or tarry stools, denies hemorrhoids, denies bleeding from rectum, denies diverticulitis, denies constipation, denies diarrhea, denies loss of stool control, and denies hernias. Kidney/Bladder: The patient denies kidney stones, denies urine infections, and denies bloody urine. Skin: The patient denies a history of skin cancer, denies bleeding/changing moles, and denies a history of skin rash. Neurologic: The patient denies a history of epilepsy/convulsions, denies headaches, denies head/spinal injuries, and denies stroke/TIA. Psychiatric: The patient denies psychiatric medications, denies depression, and denies voices, denies substance abuse. Endocrine: The patient denies thyroid disorders, denies diabetes, and denies hormonal problems. Hematologic: The patient denies a history of bruising, denies bleeding, and denies anemia, denies blood clots. Infections: The patient denies a history of measles and mumps, denies rheumatic fever, and denies sexually transmitted diseases. Musculoskeletal: The patient NOTES back pain/injury, NOTES back problems, denies sciatica, denies knee/foot trouble, denies arthritis, or denies gout. When was patient's last Mammogram screening? N/A Last Colonoscopy: 2014 Tiana Grissom RN documented in this encounter [facility] 11-11-2022 History of Presen t illness Narrative HISTORY AND PHYSICAL Jason Moore 1970 REFERRING PHYSICIAN: Fifi Pierre PA-C CHIEF COMPLAINT: Consult (Colonoscopy consult) HPI: The patient is a 51 year old male referred for endoscopy. Jason notes no colon complaints. Patient denies any change in bowel habits, weight changes, blood in stools, black tarry stools or abdominal pain. Notes family history of colon cancer in father, uncle and grandfather. The patient notes no upper GI complaints. Jason has undergone prior endoscopy. Last colonoscopy 09/28/[address] Hillman. No concerning findings, 5 year repeat colonoscopy recommended based on family history. Patient was sent to ED after recent family med visit on 10/06/22 at which time he had abnormal EKG findings. Notes reviewed. Patient had echo showing severe LVH and normal EF, per patient was felt to be related to his elevated blood pressure. He was advised to follow up with cardiology and have stress test completed, has not yet had this done. Patient denies problems with sedation in the past. PAST MEDICAL HISTORY Diagnosis Date Alcohol use 07/10/2016 3-5 day Back pain Cervical radiculopathy 12/16/2020 Fatty liver 03/28/2016 Heart rate fast on BB Hypertension Hypertension, essential 06/28/2014 LVH (left ventricular hypertrophy) 11/05/2022 With grade 1 Solomon dysfunction. Mixed hyperlipidemia 06/28/2014 Obesity, Class II, BMI 35-39.9 12/16/2020 JOSELITO (obstructive sleep apnea) resolved with weight loss Spinal stenosis in cervical region Tachycardia, unspecified on BB PAST SURGICAL HISTORY Procedure Laterality Date ALLOGRAFT FOR SPINE SURGERY ONLY STRUCTURAL 08/30/2011 FUSION AND REPLACED DISC lumbar ANTERIOR INSTRUMENTATION 2-3 VERTEBRAL SEGMENTS APPL-INTERVERTEBRAL BIOMECHANICAL DEVICES COLONOSCOPY FLX DX W/COLLJ SPEC WHEN PFRMD 09/28/2014 Colonoscopy, repeat 5 yrs PAST SURGICAL HISTORY OF back injections and disc biopsy PAST SURGICAL HISTORY OF 06/17/2021 C5-C6, C6-C7 anterior cervical discectomy and fusion, Insertion of intervertebral interbody device at C5-C6, C6-C7, anterior spinal instrumentation C5-C7, Use of structural allograft Current Outpatient Medications Medication Sig amLODIPine (NORVASC) 5 mg tablet Take by mouth once daily. Take 1 tablet daily Tadalafil (CIALIS) 20 mg tab(s) Take 1 tablet by mouth once daily. As needed. lisinopril-hydroCHLOROthiazide (PRINZIDE,ZESTORETIC) 20-12.5 mg per tablet Take 1 tablet by mouth every morning. No current facility-administered medications for this visit. ALLERGIES: Ativan [Lorazepam], Paxil [Paroxetine Hcl], and Zoloft [Sertraline] PERSONAL HISTORY: Social History Tobacco Use Smoking status: Every Day Packs/day: 0.50 Years: 21.00 Pack years: 10.50 Types: Cigarettes Smokeless tobacco: Never Vaping Use Vaping Use: Never used Substance Use Topics Alcohol use: Yes Alcohol/week: 8.0 - 12.0 standard drinks Types: 8 - 12 Cans of Beer (12oz) per week Comment: 3-4 beers per day Drug use: Never FAMILY HISTORY: FAMILY HISTORY Problem Relation Age of Onset Colon Cancer Father 50 Diabetes Father Hypertension Father Prostate Cancer Father 54 Colon Cancer Paternal Grandfather Diabetes Paternal Grandfather Prostate Cancer Paternal Grandfather 50'S Colon Cancer Paternal Uncle LATE 50'S Coronary Artery Disease Maternal Aunt Diabetes Paternal Uncle Diabetes Paternal Aunt Hypertension Paternal Grandmother Hypertension Paternal Aunt Hypertension Paternal Uncle Hypertension Maternal Aunt Hypertension Maternal Aunt Prostate Cancer Paternal Uncle 50'S REVIEW OF SYMPTOMS: The review of systems data was entered by the nurse and reviewed by fl Nursing Notes: Tiana Grissom RN 2022 9:43 AM Signed REVIEW OF SYSTEMS: General: The patient denies fatigue, denies weight loss, denies weight gain, denies feeling hot, and denies feelings of cold. Eyes: The patient denies glaucoma, denies eye injury/surgery, wears glasses or contacts. Ear/Nose/Throat: The patient denies allergies, denies hayfever, denies ear infections, and denies bloody noses. Cardiovascular: The patient denies chest pain, denies heart disease, NOTES high blood pressure,denies cardiac stent, denies prior heart attack, denies irregular heart beat, NOTES high cholesterol, denies poor circulation, NOTES heart failure, other cardiac issues, denies claudication, denies cold feet, denies peripheral arterial stent. Respiratory: The patient denies tuberculosis, denies pneumonia, denies frequent cough, denies pulmonary embolism, denies shortness of breath, and denies coughing up blood. Gastrointestinal: The patient denies difficulty swallowing, denies acid reflux, denies ulcers, denies vomiting, denies jaundice/hepatitis, denies gallbladder problems, denies black or tarry stools, denies hemorrhoids, denies bleeding from rectum, denies diverticulitis, denies constipation, denies diarrhea, denies loss of stool control, and denies hernias. Kidney/Bladder: The patient denies kidney stones, denies urine infections, and denies bloody urine. Skin: The patient denies a history of skin cancer, denies bleeding/changing moles, and denies a history of skin rash. Neurologic: The patient denies a history of epilepsy/convulsions, denies headaches, denies head/spinal injuries, and denies stroke/TIA. Psychiatric: The patient denies psychiatric medications, denies depression, and denies voices, denies substance abuse. Endocrine: The patient denies thyroid disorders, denies diabetes, and denies hormonal problems. Hematologic: The patient denies a history of bruising, denies bleeding, and denies anemia, denies blood clots. Infections: The patient denies a history of measles and mumps, denies rheumatic fever, and denies sexually transmitted diseases. Musculoskeletal: The patient NOTES back pain/injury, NOTES back problems, denies sciatica, denies knee/foot trouble, denies arthritis, or denies gout. When was patient's last Mammogram screening? N/A Last Colonoscopy: 2014 Tiana Grissom RN I have confirmed and edited as necessary, the PFSH and ROS obtained by others. Mainor Pandey PA-C PHYSICAL EXAMINATION: General: The patient is 51 year old male, well nourished, well hydrated in no acute distress. The patient is oriented to time, place, and person. VITALS: Blood pressure 130/78, pulse 111, temperature 36.7 C (98 F), height 175.3 cm (5' 9), weight 116.9 kg (257 lb 12.8 oz), SpO2 99 %. Body mass index is 38.07 kg/m . HEENT: Normal cephalic, ataumatic, pupils are equally round, sclera are anicteric, mucous membranes are moist, oropharynx is clear. Neck has no masses, asymmetry or lymphadenopathy. Respiratory: Clear to auscultation and percussion. Normal respiratory excursion and pattern. Cardiac: Examination is regular rate and rhythm. Normal S1/S2 Abdominal exam: Soft, nontender, with no palpable masses. No hepatosplenomegaly. No palpable hernias. Extremities: no clubbing, cyanosis or edema. No adenopathy. LABORATORY VALUES: As Noted RADIOLOGIC STUDIES: As Noted Assessment IMPRESSION: strong family history of colon cancer, encounter for high-risk screening colonoscopy PLAN: I have reviewed my findings with the surgeon. Will plan for lower endoscopy. We discussed the risks and benefits of the planned endoscopy. I have informed the patient that complications can occur including failure to complete the endoscopy and perforation. The patient had the opportunity to ask questions concerning the planned endoscopy. My staff has also explained the procedure to the patient in understandable terms and has given the patient printed material concerning the procedure. The patient freely consents to surgery. The patient was offered a surgery/procedure at a [facility] facility. I have counseled the patient regarding the risk of exposure to and/or potential harm posed by the COVID-19 virus with having a surgery/procedure at this time versus the risk of delaying the surgery/procedure. It is not possible to know either the risk of delaying the surgery or procedure or chance of getting an infection with perfect accuracy, but a joint decision was made between the patient and myself to proceed at this time with endoscopy. I plan to use Golytely bowel preparation We will plan for Monitored Anesthetic Care. Cardiac clearance-Dr. Dunn Diagnoses: (Z12.11) Screening for colon cancer (Z80.0) Family history of colon cancer Consultation requested by Fifi Pierre PA-C for an opinion regarding screening colonoscopy. My final recommendations will be communicated back to the requesting physician by way of shared Medical record or letter to requesting physician via US mail. Mainor Pandey PA-C documented in this encounter [facility] 10-15-2022 Miscellaneous Notes No return call or MyChart message received from pt. Letter mailed to pt's home address asking him to call the office to schedule appts. Christen Mendez LPN Left message to call office. 10/12/2022 9:48 AM MyChart message was also sent to pt asking him to call the office to schedule appts. Christen Mendez LPN Pt was seen 10/06/22 & was sent to [facility] ER from visit. Pt needs scheduled for a 2 wk FU appt, labs & a gen surg consult. Message was left on pt's voice mail to call the office to schedule these appts. Chrsiten Mendez LPN documented in this encounter [facility] 10-08-2022 Note [facility] Medical Records Department [address] [place] [id number] Discharge Summary 10/08/22927 MR#: [id number] Acct: [id number] Name: JASON MOORE Jr. Rep #: [id number] : 1970 51 From: Ludy Salazar MD PCP: Dr. Colton Rosario MD Status:ADM IN Location: [place] [address] Providers Date of Admission: 10/06/22 Date of Discharge: 10/08/22 Primary Care Physician: Dr. Colton Rosario MD Reason For Visit: HYPERTENSIVE URGENCY Diagnosis Discharge Diagnosis (1) Hypertensive urgency: Status: Acute Code(s): I16.0 - Hypertensive urgency Plan #Hypertensive urgency due to noncompliance * admit to PCU * resume patient's BP meds- lisinopril, HCTZ and metoprolol * IV hydralazine prn * 2D echo ordered * EKG showed some t wave inversions in the lateral leads not present in previous EKGs * cycle troponins * #Hypokalemia: K is 3.4. Will replace and trend #CKD IIIa: Cr is 1.36, which is around his baseline from 2018. Will monitor #Nicotine dependence: smokes at least half a pack daily. counseled to quit. Nicotine patch 21mg daily. DVT prophylaxis: lovenox COde status: full code * Patient counseled extensively about different types of CODE STATUS including full code, DNR CCA and DNR CCA. Patient elects to be full code. * Total [id number] time 17 minutes. Medications at Discharge Home Medications amlodipine 10 mg tablet 10 mg PO DAILY #30 tabs 10/08/22 hydrochlorothiazide 25 mg tablet 25 mg PO DAILY #30 tabs 10/08/22 lisinopril 40 mg tablet 40 mg PO DAILY #30 tabs 10/08/22 Hospital Course Procedures 2-D Echocardiogram Summary of Care Provided Minutes Spent on Discharge: 47 Hospital Course: JASON MOORE, is a 51 M with a PMH as outlined who presents via the ED on 10/06/2022 after being referred from his PCPs office with markedly elevated blood pressure.??? Patient has a history of high blood pressure but has not been compliant with his medication for at least 6 months.??? He states he was in his usual state of health and went to her PCP appointment because his made him go.??? When he went that his blood pressure was checked and his blood pressure was markedly elevated with a systolic over 200.??? He was therefore referred to the ED.??? He denied any headaches, blurred vision, chest pain, palpitations, dizziness, nausea vomiting or diarrhea.??? Review of systems otherwise negative. Vitals in the ED with blood pressure of 194/123, pulse rate of 75 respirate rate of 18 and he was on room air.??? CBC showed hemoglobin of 17.8 but was otherwise unremarkable.??? Chemistry was significant for potassium of 3.4 and creatinine of 1.36.??? Initial troponin was 49.???He was admitted to be managed for hypertensive urgency due to noncompliance. He was started on amlodipine, lisinopril and HCTZ. He had a 2D echo which showed severe left ventricular hypertrophy and EF of 65% and normal LVSF as well as stage I diastolic function, and apical sparing noted on the myocardial strain pattern; cannot completely exclude amyloid. he remained stable and was discharged home on 10/08/2022. He was counseled to follow up with his PCP and was referred to cardiology o/.a of the abnormal 2D echo. HE was also counseled to keep a twice daily BP log and to present it to his PCP for adjustment of his BP meds as needed. Patient seen and examined prior to discharge. He felt much better and had no active complaints. BP had improved. Review of systems was otherwise negative. Labs and vitals reviewed Home meds reviewed and reconciled. Physical Exam Const alert, oriented x3 and no apparent distress General Appearance: cooperative and comfortable Orientation / Consciousness: awake Exam Limitations: no limitations HEENT normocephalic, head/scalp atraumatic, hearing grossly normal bilaterally and moist oral mucous membranes Mouth: oral and palatal mucosa normal Eyes PERRL, EOMs intact bilaterally and conjunctivae normal Neck no lymphadenopathy and supple Resp normal respiratory effort, no retractions, no use of accessory muscles and clear to auscultation bilaterally Cardio regular rate, regular rhythm, S1 normal heart sound and S2 normal heart sound GI normal to inspection, nondistended, normoactive bowel sounds, soft to palpation, non-tender and non- distended Extremity normal to inspection, full ROM and no clubbing, cyanosis or edema Skin no rashes or lesions noted Neuro oriented x3, CN's II-XII intact bilaterally, moves all extremities and no focal motor deficits Sensorium / Orientation: awake and alert Motor Exam: strength 5/5 throughout Psych affect normal Weight / BMI Weight Weight: 259 lb 0.69 oz Body Mass Index (BMI) 38.2 ABG / Lab / Microbiology Data Result Diagrams: 10/08/22 06:20 10/08/22 06:20 Laboratory: Laboratory Results - (more content not included)... [facility] 10-07-2022 History and physi lara note Note Date/Time October 06, 2022 3:23pm [facility] Medical Records Department [address] [place] [address] H&P Exam - Hospitalist 10/06/22 1513 MR#: [id number] Acct: [id number] Name: JASON MOORE Rep #:[id number] : 1970 51 From: Ludy Salazar MD PCP: Dr. Colton Rosario MD Status:ADM IN Location: [place] [address] HPI - General General Date of Admission: 10/06/22 Date of Service: 10/06/22 HPI Narrative JASON MOORE, is a 51 M with a PMH as outlined who presents via the ED on 10/06/2022 after being referred from his PCPs office with markedly elevated blood pressure. Patient has a history of high blood pressure but has not been compliant with his medication for at least 6 months. He states he was in his usual state of health and went to her PCP appointment because his made him go. When he went that his blood pressure was checked and his blood pressure wasmarkedly elevated with a systolic over 200. He was therefore referred to the ED. He denied any headaches, blurred vision, chest pain, palpitations, dizziness, nausea vomiting or diarrhea. Review of systems otherwise negative. Vitals in the ED with blood pressure of 194/123, pulse rate of 75 respirate rateof 18 and he was on room air. CBC showed hemoglobin of 17.8 but was otherwise unremarkable. Chemistry was significant for potassium of 3.4 and creatinine of 1.36. Initial troponin was 49. Has been admitted to be managed for hypertensive urgency due to noncompliance. 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 current occupational exposures/hazards: No Smoking Status: Current every day smoker tobacco type: cigarettes alcohol intake: current alcohol intake frequency: 3 or more drinks per day details: 3-4 beers and a few shots of whiskey per day on average substance use type: does not use ROS Constitutional Constitutional: Denies anorexia, chills, fatigue, fever(s), malaise or weakness ENT HEENT: Denies dysphagia or headache(s) Cardiovascular Cardiovascular: Denies chest pain, dyspnea on exertion, edema, lightheadedness, orthopnea, palpitations, rapid heart rate or syncope Respiratory/Chest Respiratory/Chest: Denies cough, dyspnea, shortness of breath at rest or shortness of breath with exertion Gastrointestinal Gastrointestinal: Denies abdominal pain, constipation, nausea or vomiting Genitourinary Genitourinary: Denies burning urination or dysuria Musculoskeletal Musculoskeletal: Denies arthralgias Neurologic Neurologic: Denies confusion, dizziness, focal weakness, headache(s), seizures or syncope Psychiatric Psychiatric: Denies anxiety or depression Endocrine Endocrinology: Denies change in body appearance Vital Signs Vital Signs Vital Signs: 10/06/22 08:08 10/06/22 08:42 10/06/22 09:22 Temperature 97.6 F L Temperature Source Temporal Pulse Rate 95 88 Respiratory Rate 14 Respiratory Pattern Normal Blood Pressure 186/125 H 199/130 H Blood Pressure Mean 145 153 Pulse Ox 98 Oxygen Delivery Method Room Air 10/06/22 09:57 10/06/22 11:13 10/06/22 13:00 Temperature 97.6 F L Temperature Source Temporal Pulse Rate 74 88 75 Respiratory Rate 17 16 18 Respiratory Pattern Blood Pressure 206/124 H 188/110 H 194/123 H Blood Pressure Mean 151 136 146 Pulse Ox 96 Oxygen Delivery Method Room Air Room Air Weight Weight: 254 lb Body Mass Index (BMI) 37.5 Physical Exam Const alert, oriented x3 and no apparent distress General Appearance: cooperative HEENT normocephalic, head/scalp atraumatic, hearing grossly normal bilaterally and moist oral mucous membranes Mouth: oral and palatal mucosa normal Eyes PERRL and EOMs intact bilaterally Neck no lymphadenopathy and supple Resp normal respiratory effort, no retractions, no use of accessory muscles and clearto auscultation bilaterally Cardio regular rate, regular rhythm, S1 normal heart sound and S2 normal heart sound GI normal to inspection, nondistended, normoactive bowel sounds, soft to palpation,non-tender and non-distended Extremity normal to inspection, full ROM and no clubbing, cyanosis or edema Neuro oriented x3, CN's II-XII intact bilaterally, moves all extremities and no focal motor deficits Sensorium / Orientation: awake and alert Motor Exam: strength 5/5 throughout Psych affect normal Results Lab / Micro Data Result Diagrams: 10/07/22 06:35 10/07/22 06:35 Labs: Laboratory Results - last 24 hr 10/06/22 08:30: WBC 6.9, RBC 5.27, Hgb 17.8 H, Hct 50.5, MCV 95.8 H, MCH 33.8 H,MCHC 35.2, RDW Std Deviation 41.6, RDW Coeff of María 11.9, Plt Count 212, MPV 11.0, Immature Gran % (Auto) 0.400, Neut % (Auto) 63.7, Lymph % (Auto) 28.2, Banner % (Auto) 6.6, Eos % (Auto) 0.4, Baso % (Auto) 0.7, Absolute Neuts (auto) 4.4, Absolute Lymphs (auto) 1.95, Nucleated RBC % 0 10/06/22 08:30: Sodium 138, Potassium 3.4 L, Chloride 106, Carbon Dioxide 25.0, Anion Gap 7, BUN 15, Creatinine 1.36 H, Estim Creat Clear Calc 65.70, Est GFR (MDRD) Af Amer 71, Est GFR (MDRD) Non-Af 59 L, BUN/Creatinine Ratio 11.0, Glucose 117 H, Calcium 9.6, Troponin I High Sens 49 Assessment & Plan Assessment/Plan (1) Hypertensive urgency: PLAN: Plan #Hypertensive urgency due to noncompliance * admit to PCU * resume patient's BP meds- lisinopril, HCTZ and metoprolol * IV hydralazine prn * 2D echo ordered * EKG showed some t wave inversions in the lateral leads not present in previous EKGs * cycle troponins * #Hypokalemia: K is 3.4. Will replace and trend #CKD IIIa: Cr is 1.36, which is around his baseline from 2018. Will monitor #Nicotine dependence: smokes at least half a pack daily. counseled to quit. Nicotine patch 21mg daily. DVT prophylaxis: lovenox COde status: full code * Patient counseled extensively about different types of CODE STATUS including full code, DNR CCA and DNR CCA. Patient elects to be full code. * Total [id number] time 17 minutes. Charges/Coding Visit Charges Inpatient E&M: 24827 Init Hosp L3 Procedures Hospitalists Procedures: 52005 Advncd Care Plan 30 Min 10/07/22 1607 <Electronically signed by Ludy Salazar MD> Cosigner Signature (if applicable): CC: Dr. Colton Rosario MD; Dr. Ludy Salazar MD~ Signed [facility] Work Phone: 1(843) 210-518802-08-[address] Salazar [facility] October 07, 2022 4:07pm Note Date/Time October 07, 2022 1 0:52am [facility] Medical Records Department [address] [place] [address] Progress Note - Hospitalist 10/07/22 1050 MR#: [id number] Acct: [id number] Name: JASON MOORE Jr. Rep #:[id number] : 1970 51 From: Ludy Salazar MD PCP: Dr. Colton Rosario MD Status:ADM IN Location: [place] [address] Reason for Visit Reason for Visit: Patient seen and examined. He had no active complaints and had an uneventful night. BP still not very well controlled. REview of systems is otherwise negative. Objective Data Objective Data Vital Signs: Vital Signs Temp Pulse Resp BP Pulse Ox O2 Del Method 97.9 F 93 16 158/90 H 98 Room Air 10/07/22 09:49 10/07/22 09:49 10/07/22 09:49 10/07/22 09:49 10/07/22 09:49 10/07/22 09:49 Oxygen Delivery Method Room Air Weight: 259 lb 0.69 oz Body Mass Index (BMI) 38.2 Intake & Output: Intake and Output for Last 24 Hours 10/05/22 10/06/22 10/07/22 23:59 23:59 23:59 Intake Total 1490.0 / 1490.0 Balance 1490.0 / 1490.0 Lab / Micro Data Result Diagrams: 10/07/22 06:35 10/07/22 06:35 Labs: Laboratory Results - last 24 hr 10/06/22 16:56: Troponin I High Sens 10/06/22 19:30: Troponin I High Sens 10/06/22 22:45: Troponin I High Sens 10/07/22 06:35: WBC 6.1, RBC 5.05, Hgb 16.8 H, Hct 49.0, MCV 97.0 H, MCH 33.3 H,MCHC 34.3, RDW Std Deviation 42.4, RDW Coeff of María 11.9, Plt Count 200, MPV 11.2, Immature Gran % (Auto) 0.700, Neut % (Auto) 64.5, Lymph % (Auto) 27.9, Banner % (Auto) 5.6, Eos % (Auto) 0.8, Baso % (Auto) 0.5, Absolute Neuts (auto) 3.9, Absolute Lymphs (auto) 1.70, Nucleated RBC % 0 10/07/22 06:35: Sodium 138, Potassium 3.5, Chloride 108 H, Carbon Dioxide 23.0, Anion Gap 7, BUN 8, Creatinine 1.05, Estim Creat Clear Calc 85.10, Est GFR (MDRD) Af Amer 96, Est GFR (MDRD) Non-Af 80, BUN/Creatinine Ratio 7.6 L, [id number] H, Calcium 9.4 Physical Exam Const alert, oriented x3 and no apparent distress General Appearance: cooperative HEENT normocephalic, head/scalp atraumatic, hearing grossly normal bilaterally and moist oral mucous membranes Head and Scalp: normocephalic Mouth: oral and palatal mucosa normal Eyes PERRL, EOMs intact bilaterally and conjunctivae normal Neck no lymphadenopathy and supple Resp normal respiratory effort, no retractions, no use of accessory muscles and clearto auscultation bilaterally Cardio regular rate, regular rhythm, S1 normal heart sound and S2 normal heart sound GI normal to inspection, nondistended, normoactive bowel sounds, soft to palpation,non-tender and non-distended Extremity normal to inspection, full ROM and no clubbing, cyanosis or edema Neuro oriented x3, CN's II-XII intact bilaterally, moves all extremities and no focal motor deficits Sensorium / Orientation: awake and alert Motor Exam: strength 5/5 throughout Psych affect normal Assessment & Plan Assessment/Plan (1) Hypertensive urgency: PLAN: Plan #Hypertensive urgency due to noncompliance * BP still remains poorly controlled * on amlodipine 10mg daily; started on lisinopril 40mg daily and HCTZ 25mg daily. * 2D echo ordered and pending * IV hydralazine prn * troponins x 3 were negative * * #Hypokalemia: resolved. potassiuim is 3.5 today. #CKD IIIa: Cr has trended down to 1.05. He may therefore have had TREVON rather than CKD III though his baseline has been ~ 1.3 #Nicotine dependence: smokes at least half a pack daily. counseled to quit. Nicotine patch 21mg daily. DVT prophylaxis; lovenox Charges/Coding Visit Charges Inpatient E&M: 81177 Subs Hosp L2 10/07/22 1607 <Electronically signed by Ludy Salazar MD> Cosigner Signature (if applicable): CC: ~ Signed [facility] Work Phone: 1([phone]) 490-635202-07-[address] Terry [facility] October 06, 2022 2:39pm Note Date/Time October 06, 2022 8 :22am [facility] Medical Records Department [address] [place] [address] Emergency Department Summary 10/06/22 MR#: [id number] Acct: [id number] Name: JASON MOORE JrHarmeet Rep #:[id number] : 1970 51 From: Willie Terry DO PCP: Dr. Colton Rosario MD Status:ADM IN Location: [place] [address] HPI History of Present Illness Chief Complaint: Hypertension Detail of Chief Complaint: High blood pressure and abnormal EKG Informant: patient Narrative Narrative: Patient presents the emergency department with complaint of elevated blood pressure. Patient states that he was having a yearly checkup at the primary care physician's office where they noticed he had elevated blood pressure and they did an EKG which appeared abnormal so he was referred to the emergency department. Patient denies chest pain. He denies shortness of breath out of the ordinary other than he is put on some weight and he attributes some mild dyspnea to that. Patient has no heart history. Patient states that he was supposed to be on blood pressure medicine including hydrochlorothiazide and amlodipine but has not been taking it for months. Patient denies recent illness. 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 current occupational exposures/hazards: No Smoking Status: Current every day smoker tobacco type: cigarettes alcohol intake: current alcohol intake frequency: 3 or more drinks per day details: 3-4 beers and a few shots of whiskey per day on average substance use type: does not use ROS ROS ED Review of Systems ROS Unobtainable: other Constitutional Constitutional ED: Reports lethargy; Denies chills, fever(s), sweats or weight loss Eyes Eyes: Denies blurry vision, change in vision or diplopia ENT ENT ED: Denies rhinorrhea or sore throat Cardiovascular Cardiovascular: Denies chest pain, orthopnea or racing heartbeat Respiratory/Chest Respiratory/Chest: Reports dyspnea on exertion; Denies cough, dyspnea, orthopneaor sputum Gastrointestinal Gastrointestinal: Denies abdominal pain, diarrhea, nausea or vomiting Genitourinary Genitourinary ED: Denies dysuria, hematuria or urinary frequency Musculoskeletal Musculoskeletal: Denies arthralgias, back pain, myalgias or neck pain Integumentary Denies abscess, Abrasions or rash Neurologic Neurologic: Denies headache(s) or weakness Psychiatric Psychiatric: Denies anxiety, depression or suicidal thoughts Endocrine Endocrinology: Denies polydipsia, polyphagia or polyuria Hematologic/Lymphatic Hematologic/Lymphatic: Denies easy bleeding, easy bruising or lymphadenopathy Allergic/Immunologic Allergic/Immunologic ED: Denies mouth swelling, tongue swelling or urticaria EXAM Physical Exam Const Vital Signs: 10/06/22 08:08 10/06/22 08:42 10/06/22 09:22 Temperature 97.6 F L Temperature Source Temporal Pulse Rate 95 88 Respiratory Rate 14 Respiratory Pattern Normal Blood Pressure 186/125 H 199/130 H Blood Pressure Mean 145 153 Pulse Ox 98 Oxygen Delivery Method Room Air Positive well nourished and well developed General Appearance ED: well developed and NAD HEENT Reports TM's clear and moist mucous membranes normocephalic and atraumatic; Negative for trauma or tenderness Tympanic Membrane ED: Yes TM's clear Eyes PERRL and EOMs intact bilaterally General Eye ED: Negative for pale conjunctiva or scleral icterus Neck no lymphadenopathy, supple and no JVD General: Negative for tenderness Chest Wall inspection of chest normal and palpation of chest normal Chest: Negative for tenderness Resp normal respiratory effort and clear to auscultation bilaterally Effort and Inspection: Negative for respiratory distress or pain with movement Auscultation: Negative for rhonchi, wheezes or diminished lung sounds Cardio regular rate, regular rhythm, S1 normal heart sound, S2 normal heart sound and no murmurs Peripheral Pulses: pulses 2+ throughout GI normal to inspection, nondistended, normoactive bowel sounds, soft to palpation,non-tender, non-distended and no masses Back/Spine no CVA tenderness and no thoracic nor lumbar tenderness Extremity normal to inspection General Extremety ED: Negative for edema General Extremity: Negative for edema Neuro oriented x3, CN's II-XII intact bilaterally, no sensory deficits noted and gait normal Sensorium / Orientation: awake, alert, oriented to person, oriented to place andoriented to time Motor Exam: strength 5/5 throughout and strength abnormal Psych mental status grossly normal Skin no rashes or lesions noted and no wounds MDM MDM MDM Narrative Medical decision making narrative: InterimLine established on arrival. Patient placed on a cyber security. Showed sinus rhythm with a rate of [address] changes noted laterally and when compared with prior EKG from 2020 these changes are new. Patient was given hydralazine 5 mg IV. CBC with differential was unremarkable. Chemistries were unremarkable. He did have some chronic renal insufficiency with a creatinine 1.36. Troponin was normal at 49. Despite 5 mg of hydralazineblood pressure systolic still in the low 200s and diastolic in the 120s. He wasgiven another dose of hydralazine. At this point Case will be discussed with hospitalist evaluate patient for admission for hypertensive urgency and abnormalEKG changes. Lab Data Attestation: I reviewed the patient's lab results. Labs: Laboratory Results - last 24 hr 10/06/22 10/06/22 08:30 08:30 WBC 6.9 RBC 5.27 Hgb 17.8 H Hct 50.5 MCV 95.8 H MCH 33.8 H MCHC 35.2 RDW Std Deviation 41.6 RDW Coeff of María 11.9 Plt Count 212 MPV 11.0 Immature Gran % (Auto) 0.400 Neut % (Auto) 63.7 Lymph % (Auto) 28.2 Banner % (Auto) 6.6 Eos % (Auto) 0.4 Baso % (Auto) 0.7 Absolute Neuts (auto) 4.4 Absolute Lymphs (auto) 1.95 Nucleated RBC % 0 Sodium 138 Potassium 3.4 L Chloride 106 Carbon Dioxide 25.0 Anion Gap 7 BUN 15 Creatinine 1.36 H Estim Creat Clear Calc 65.70 Est GFR (MDRD) Af Amer 71 Est GFR (MDRD) Non-Af 59 L BUN/Creatinine Ratio 11.0 Glucose 117 H Calcium 9.6 Troponin I High Sens 49 EKG Initial EKG: Attestation: I personally reviewed and interpreted this EKG as follows: Comments: Sinus rhythm with a ventricular rate of [address] changes Prior EKG tracings: available for review Prior: Changed Discharge Plan Triage Chief Complaint: Hypertension ED Provider: Willie Terry Dx/Rx/DC Orders Clinical Impression: Hypertensive urgency, Abnormal ECG, Chronic renal insufficiency Prescriptions: No Action amlodipine 5 mg Tablet 5 mg PO DAILY 30 Days Qty: 30 0RF Primary Care Provider: Colton Rosario Referrals: Kota Barba PRESALES CONSULTANT, [facility] CONSULTANT-C [Non-Staff] - Disposition Disposition: Acute Care Hospital [facility] What to do if you have Problems For any increased pain, shortness of breath, bleeding, nausea or vomiting, chestpain, or any unexpected problems, contact your Primary Care Provider. Call [facility] ([phone]) or report to the closest Emergency Room. Call 911 if necessary. 10/06/22 1439 <Electronically signed by Willie Terry DO> Cosigner Signature (if applicable): CC: Dr. Colton Rosario MD ~ Signed [facility] Work Phone: 1(265) 186-872502-07-[address] Terry [facility] October 06, 2022 2:39pm Note Date/Time October 06, 2022 8 :22am [facility] Medical Records Department [address] [place] [id number] Emergency Department Summary 10/06/22 MR#: [id number] Acct: [id number] Name: JASON MOORE Jr. Rep #:[id number] : 1970 51 From: Willie Terry DO PCP: Dr. Colton Rosario MD Status:ADM IN Location: [address] History of Present Illness Chief Complaint: Hypertension Detail of Chief Complaint: High blood pressure and abnormal EKG Informant: patient Narrative Narrative: Patient presents the emergency department with complaint of elevated blood pressure. Patient states that he was having a yearly checkup at the primary care physician's office where they noticed he had elevated blood pressure and they did an EKG which appeared abnormal so he was referred to the emergency department. Patient denies chest pain. He denies shortness of breath out of the ordinary other than he is put on some weight and he attributes some mild dyspnea to that. Patient has no heart history. Patient states that he was supposed to be on blood pressure medicine including hydrochlorothiazide and amlodipine but has not been taking it for months. Patient denies recent illness. 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 current occupational exposures/hazards: No Smoking Status: Current every day smoker tobacco type: cigarettes alcohol intake: current alcohol intake frequency: 3 or more drinks per day details: 3-4 beers and a few shots of whiskey per day on average substance use type: does not use ROS ROS ED Review of Systems ROS Unobtainable: other Constitutional Constitutional ED: Reports lethargy; Denies chills, fever(s), sweats or weight loss Eyes Eyes: Denies blurry vision, change in vision or diplopia ENT ENT ED: Denies rhinorrhea or sore throat Cardiovascular Cardiovascular: Denies chest pain, orthopnea or racing heartbeat Respiratory/Chest Respiratory/Chest: Reports dyspnea on exertion; Denies cough, dyspnea, orthopneaor sputum Gastrointestinal Gastrointestinal: Denies abdominal pain, diarrhea, nausea or vomiting Genitourinary Genitourinary ED: Denies dysuria, hematuria or urinary frequency Musculoskeletal Musculoskeletal: Denies arthralgias, back pain, myalgias or neck pain Integumentary Denies abscess, Abrasions or rash Neurologic Neurologic: Denies headache(s) or weakness Psychiatric Psychiatric: Denies anxiety, depression or suicidal thoughts Endocrine Endocrinology: Denies polydipsia, polyphagia or polyuria Hematologic/Lymphatic Hematologic/Lymphatic: Denies easy bleeding, easy bruising or lymphadenopathy Allergic/Immunologic Allergic/Immunologic ED: Denies mouth swelling, tongue swelling or urticaria EXAM Physical Exam Const Vital Signs: 10/06/22 08:08 10/06/22 08:42 10/06/22 09:22 Temperature 97.6 F L Temperature Source Temporal Pulse Rate 95 88 Respiratory Rate 14 Respiratory Pattern Normal Blood Pressure 186/125 H 199/130 H Blood Pressure Mean 145 153 Pulse Ox 98 Oxygen Delivery Method Room Air Positive well nourished and well developed General Appearance ED: well developed and NAD HEENT Reports TM's clear and moist mucous membranes normocephalic and atraumatic; Negative for trauma or tenderness Tympanic Membrane ED: Yes TM's clear Eyes PERRL and EOMs intact bilaterally General Eye ED: Negative for pale conjunctiva or scleral icterus Neck no lymphadenopathy, supple and no JVD General: Negative for tenderness Chest Wall inspection of chest normal and palpation of chest normal Chest: Negative for tenderness Resp normal respiratory effort and clear to auscultation bilaterally Effort and Inspection: Negative for respiratory distress or pain with movement Auscultation: Negative for rhonchi, wheezes or diminished lung sounds Cardio regular rate, regular rhythm, S1 normal heart sound, S2 normal heart sound and no murmurs Peripheral Pulses: pulses 2+ throughout GI normal to inspection, nondistended, normoactive bowel sounds, soft to palpation,non-tender, non-distended and no masses Back/Spine no CVA tenderness and no thoracic nor lumbar tenderness Extremity normal to inspection General Extremety ED: Negative for edema General Extremity: Negative for edema Neuro oriented x3, CN's II-XII intact bilaterally, no sensory deficits noted and gait normal Sensorium / Orientation: awake, alert, oriented to person, oriented to place andoriented to time Motor Exam: strength 5/5 throughout and strength abnormal Psych mental status grossly normal Skin no rashes or lesions noted and no wounds MDM MDM MDM Narrative Medical decision making narrative: InterimLine established on arrival. Patient placed on a cyber security. Showed sinus rhythm with a rate of [address] changes noted laterally and when compared with prior EKG from 2020 these changes are new. Patient was given hydralazine 5 mg IV. CBC with differential was unremarkable. Chemistries were unremarkable. He did have some chronic renal insufficiency with a creatinine 1.36. Troponin was normal at 49. Despite 5 mg of hydralazineblood pressure systolic still in the low 200s and diastolic in the 120s. He wasgiven another dose of hydralazine. At this point Case will be discussed with hospitalist evaluate patient for admission for hypertensive urgency and abnormalEKG changes. Lab Data Attestation: I reviewed the patient's lab results. Labs: Laboratory Results - last 24 hr 10/06/22 10/06/22 08:30 08:30 WBC 6.9 RBC 5.27 Hgb 17.8 H Hct 50.5 MCV 95.8 H MCH 33.8 H MCHC 35.2 RDW Std Deviation 41.6 RDW Coeff of María 11.9 Plt Count 212 MPV 11.0 Immature Gran % (Auto) 0.400 Neut % (Auto) 63.7 Lymph % (Auto) 28.2 Banner % (Auto) 6.6 Eos % (Auto) 0.4 Baso % (Auto) 0.7 Absolute Neuts (auto) 4.4 Absolute Lymphs (auto) 1.95 Nucleated RBC % 0 Sodium 138 Potassium 3.4 L Chloride 106 Carbon Dioxide 25.0 Anion Gap 7 BUN 15 Creatinine 1.36 H Estim Creat Clear Calc 65.70 Est GFR (MDRD) Af Amer 71 Est GFR (MDRD) Non-Af 59 L BUN/Creatinine Ratio 11.0 Glucose 117 H Calcium 9.6 Troponin I High Sens 49 EKG Initial EKG: Attestation: I personally reviewed and interpreted this EKG as follows: Comments: Sinus rhythm with a ventricular rate of [address] changes Prior EKG tracings: available for review Prior: Changed Discharge Plan Triage Chief Complaint: Hypertension ED Provider: Willie Terry Dx/Rx/DC Orders Clinical Impression: Hypertensive urgency, Abnormal ECG, Chronic renal insufficiency Prescriptions: No Action amlodipine 5 mg Tablet 5 mg PO DAILY 30 Days Qty: 30 0RF Primary Care Provider: Colton Rosario Referrals: Kota Barba PRESALES CONSULTANT, [facility] CONSULTANT-C [Non-Staff] - Disposition Disposition: Acute Care [facility] What to do if you have Problems For any increased pain, shortness of breath, bleeding, nausea or vomiting, chestpain, or any unexpected problems, contact your Primary Care Provider. Call [facility] ([phone]) or report to the closest Emergency Room. Call 911 if necessary. 10/06/22 1439 <Electronically signed by Willie Terry DO> Cosigner Signature (if applicable): CC: Dr. Colton Rosario MD ~ Signed [facility] Work Phone: 1(446) 773-127902-07-2023 History of Present illness Narrative* Fifi Pierre PA-C - 10/06/2022 7:17 AM EST Chief Complaint Patient presents with: Yearly Exam HPI Jason Moore is a 51 year old male who presents here today for physical. Patient hasn't been seen in over a year. Admits to noncompliance with his medications. He does not check his BP at home. Has been out of his meds for 6+ months. Last 5 Encounter BP Readings: Date: BP: 10/06/2022 178/120 08/03/2022 164/94 02/26/2022 142/94 06/17/2021 111/97 06/09/2021 116/80 Past medical history, appointments, medications, allergies reviewed. Previous Medical History PAST MEDICAL HISTORY Diagnosis Date Alcohol use 07/10/2016 3-5 day Back pain Cervical radiculopathy 12/16/2020 Fatty liver 03/28/2016 Heart rate fast on BB Hypertension Mixed hyperlipidemia 06/28/2014 Obesity, Class II, BMI 35-39.9 12/16/2020 JOSELITO (obstructive sleep apnea) resolved with weight loss Spinal stenosis in cervical region Tachycardia, unspecified on BB Previous Surgical History PAST SURGICAL HISTORY Procedure Laterality Date ALLOGRAFT FOR SPINE SURGERY ONLY STRUCTURAL 08/30/2011 FUSION AND REPLACED DISC lumbar ANTERIOR INSTRUMENTATION 2-3 VERTEBRAL SEGMENTS APPL-INTERVERTEBRAL BIOMECHANICAL DEVICES COLONOSCOPY FLX DX W/COLLJ SPEC WHEN PFRMD 09/28/2014 Colonoscopy, repeat 5 yrs PAST SURGICAL HISTORY OF back injections and disc biopsy PAST SURGICAL HISTORY OF 06/17/2021 C5-C6, C6-C7 anterior cervical discectomy and fusion, Insertion of intervertebral interbody device at C5-C6, C6-C7, anterior spinal instrumentation C5-C7, Use of structural allograft Family History FAMILY HISTORY Problem Relation Age of Onset Colon Cancer Father 50 Diabetes Father Hypertension Father Prostate Cancer Father 54 Colon Cancer Paternal Grandfather Diabetes Paternal Grandfather Prostate Cancer Paternal Grandfather 50'S Colon Cancer Paternal Uncle LATE 50'S Coronary Artery Disease Maternal Aunt Diabetes Paternal Uncle Diabetes Paternal Aunt Hypertension Paternal Grandmother Hypertension Paternal Aunt Hypertension Paternal Uncle Hypertension Maternal Aunt Hypertension Maternal Aunt Prostate Cancer Paternal Uncle 50'S Patient Allergies ALLERGIES Allergen Reactions Ativan [Lorazepam] GI Upset Paxil [Paroxetine H* GI Upset diarrhea Zoloft [Sertraline] GI Upset Current Medications Current Outpatient Medications on File Prior to Visit Medication Sig cyclobenzaprine (FLEXERIL) 10 mg tablet Take 1 tablet by mouth three times daily as needed for muscle spasm. (Patient not taking: Reported on 08/03/2022) cyclobenzaprine (FLEXERIL) 5 mg tablet Take 1 tablet by mouth three times daily as needed for muscle spasm. (Patient not taking: Reported on 02/26/2022 ) metoprolol succinate ER (TOPROL XL) 50 mg 24 hr tablet Take 1 tablet by mouth once daily. (Patient not taking: Reported on 08/03/2022) gabapentin (NEURONTIN) 300 mg capsule Take 1 capsule by mouth three times daily for 90 days. (Patient not taking: Reported on 08/03/2022) lisinopril-hydroCHLOROthiazide (PRINZIDE,ZESTORETIC) 20-12.5 mg per tablet Take 1 tablet by mouth every morning. (Patient not taking: Reported on 08/03/2022) No current facility-administered medications on file prior to visit. Social History Social History Tobacco Use Smoking status: Every Day Packs/day: 0.50 Years: 21.00 Pack years: 10.50 Types: Cigarettes Smokeless tobacco: Never Vaping Use Vaping Use: Never used Substance Use Topics Alcohol use: Yes Alcohol/week: 8.0 - 12.0 standard drinks Types: 8 - 12 Cans of Beer (12oz) per week Comment: moderate amount of alcohol, 1-2 drinks a day Drug use: Never Review of Symptoms REVIEW OF SYSTEMS GENERAL: No weight loss, malaise or fevers HEENT: No changes in hearing or vision, no nose bleeds or other nasal problems NECK: Negative for lumps, goiter, pain and significant neck swelling RESPIRATORY: Negative for cough, hemoptysis, wheezing, COPD, dyspnea or shortness of breath CARDIOVASCULAR: Negative for chest pain, leg swelling, CHF or palpitations GI: Negative for abdominal discomfort, blood in stools or black stools, change in bowel habit, heart burn, nausea, vomiting : No history of dysuria, frequency or incontinence MUSCULOSKELETAL: Negative for joint pain or swelling, back pain or muscle pain SKIN: Negative for lesions, rash, and itching PSYCH: Negative for sleep disturbance, mood disorder and recent psychosocial stressors HEMATOLOGY/LYMPHOLOGY: Negative for prolonged bleeding, bruising easily or swollen nodes ENDOCRINE: Negative for cold or heat intolerance, polyuria, polydipsia and goiter NEURO: No history of headaches, syncope, paralysis, seizures or tremors EXAM: BP 178/120 Pulse 102 Resp 20 Ht 178 cm (5' 10.08) Wt 116.6 kg (257 lb) SpO2 97% BMI 36.79 kg/m General Appearance: Well appearing, alert, in no acute distress, well-hydrated, well nourished.. Obese Head: Normocephalic, no masses, lesions, tenderness or abnormalities. Eyes: Anicteric sclera. Pupils are equally round and reactive to light. Extraocular movements are intact. . Ears: External ears normal, canals clear. Neck: Supple, no adenopathy; thyroid symmetric, normal size, no bruits. Lungs: Lungs clear to auscultation. No wheezing, rhonchi, rales.. Heart: RRR without murmur, gallop, or rubs. No ectopy. Abdomen: Normal abdominal exam, Abdomen soft, non-tender. Bowel sounds normal. No masses, organomegaly. Extremities: No deformities, edema, skin discoloration, clubbing or cyanosis. Good capillary refill. . Peripheral Pulses: Normal. Neurologic: Gait normal. Reflexes normal and symmetric. Sensation grossly intact.. Genitalia: Penis normal. No urethral discharge. Scrotum normal to palpation. No hernia.. Rectal: Normal exam. Health Maintenance List HEPATITIS B(1 of 3 - 3-dose series) Never done BP CONTROLLED (<130/80) Never done COLORECTAL CANCER SCREENING due on 09/28/2019 COVID-19 VACCINE(3 - Booster for Moderna series) due on 02/13/2021 ANNUAL PCP TEAM CHRONIC DISEASE VISIT due on 06/09/2022 DEPRESSION ASSESSMENT Never done INFLUENZA(1) due on 02/26/2023 PNEUMOCOCCAL(1 - PCV) due on 10/06/2023 DTAP,TDAP,TD(2 - Td or Tdap) due on 06/28/2024 LIPID SCREEN due on 03/12/2025 DIABETES SCREEN due on 10/05/2025 HEPATITIS C SCREENING Completed HIV SCREENING Completed Data reviewed EKG: Nonspecific T wave abnormality, Prolonged QT Component Latest Ref Rng & Units 10/05/2022 WBC 3.70 - 11.00 k/uL 6.79 RBC 4.20 - 6.00 m/uL 5.48 Hemoglobin 13.0 - 17.0 g/dL 18.6 (H) Hematocrit 39.0 - 51.0 % 54.3 (H) MCV 80.0 - 100.0 fL 99.1 MCH 26.0 - 34.0 pg 33.9 MCHC 30.5 - 36.0 g/dL 34.3 RDW-CV 11.5 - 15.0 % 11.8 Platelet Count 150 - 400 k/uL 225 MPV 9.0 - 12.7 fL 11.6 Neut% % 55.1 Abs Neut (ANC) 1.45 - 7.50 k/uL 3.73 Lymph% % 35.6 Abs Lymph 1.00 - 4.00 k/uL 2.42 Banner% % 7.8 Abs Banner <0.87 k/uL 0.53 Eosin% % 0.4 Abs Eosin <0.46 k/uL 0.03 Baso% % 0.7 Abs Baso <0.11 k/uL 0.05 Immature Gran % % 0.4 IMMATURE GRANS (ABS) <0.10 k/uL 0.03 NRBC /100 WBC 0.0 Absolute nRBC <0.01 k/uL <0.01 DTYPE Auto Color Yellow Light [place] (A) Clarity Clear Cloudy (A) Glucose, Urine Trace, Negative Trace Bilirubin, Urine Negative Negative Ketones, Urine Trace, Negative Negative Specific [place], Ur 1.005 - 1.030 1.033 (H) Hemoglobin/Blood,Ur Negative, Trace 1+ (A) pH, Urine 5.0 - 8.0 6.0 Protein, Urine Trace, Negative 3+ (A) Urobilinogen Negative Negative Nitrites Negative Negative Leukest Negative, 25 Swetha/mL Negative WBC, Urine 0-5 /HPF 0-5 /HPF RBC, Urine 0-3 /HPF 0-3 /HPF Epithelial Cells /HPF Few Hyaline Cast 0 /LPF >10 /LPF (A) Hemoglobin A1C 4.3 - 5.6 % 5.4 Estimated Average Glucose mg/dL 108 ASSESSMENT/PLAN: 1. Well adult exam - ICD9: V70.0, ICD10: Z00.00 (primary diagnosis) - Counseled on healthy diet and regular exercise - Discussed need for and benefit of weight loss. BMI 36.79 kg/(m^2) - Smoking cessation encouraged; discussed risks to health and quitting strategies. Patient is contemplative and preparing to quit - Counseled on limiting alcohol intake to 2 drinks per day 2. Hypertension, essential - ICD9: 401.9, ICD10: I10 - poor control - noncompliance Patient with significantly elevated BP today and although he is asymptomatic, his EKG is showing nonspecific T wave abnormality and a prolonged QT. Discussed with Dr. Rosario who agrees that ER would be advisable. Patient understanding and plans to go to [facility]. - Recommended regular aerobic exercise. - Recommend home blood pressure monitoring, to bring results in on next visit - Goal of BP <130/80 - ECG COMPLETE 3. Essential hypertension with goal blood pressure less than 140/90 - ICD9: 401.9, ICD10: I10 See hpi - LISINOPRIL 20 MG-HYDROCHLOROTHIAZIDE 12.5 MG TABLET 4. Polycythemia - ICD9: 238.4, ICD10: D75.1 Recheck: - CBC + DIFF - ERYTHROPOIETIN/EPO 5. Screening for prostate cancer - ICD9: V76.44, ICD10: Z12.5 - Counseled on healthy diet and regular exercise - URINALYSIS, WITH MICROSCOPIC 6. Family history of prostate cancer - ICD9: V16.42, ICD10: Z80.42 - URINALYSIS, WITH MICROSCOPIC - PSA/PROSTSPECAG DIAG 7. Screening for colon cancer - ICD9: V76.51, ICD10: Z12.11 - CONSULT TO GENERAL SURGERY 8. Family history of colon cancer - ICD9: V16.0, ICD10: Z80.0 - CONSULT TO GENERAL SURGERY Fifi Pierre PA-C documented in this encounterSelect Medical [facility]23 Miscellaneous Notes* Telephone Encounter - INES Amado - 09/30/2022 2:53 PM EST TC to Dawson, who verbalizes understanding and will have pt complete prior to appointment on 10/06. Nofurther questions at this time. INES Amado * Telephone Encounter - Fifi Pierre PA-C - 09/30/2022 2:39 PM EST Lab orders placed * Telephone Encounter - Charlene Clement RN - 09/30/2022 2:24 PM EST Pt's calling to make Physical appt for patient. She states patient has not been seen in PCP office in a couple of years. According to record, pt was seen last by Kota Barba CNP in 05/2021 for pre-op clearance. states patient has blood pressure issues and is overdue for evaluation. History of poor BP control and noncompliance noted. Pt was an established patient of Dr. Rosario, however was managed by Kota Barba for a period of time. Due to Kota Barba CNP no longer working at [facility], appt made with MIKE Jordan for10/06. Please contact pt for alternative arrangements if pt cannot be seen. Also, please call patient's Dawson, if provider would like to order any labs prior to 10/06 visit. Thank you. documented in this encounterSelect Medical [facility]12-05-2022 Instructions* Patient Instructions* Colton Diallo APRN.SONOGRAPHY TECHNICIAN - 08/03/2022 2:03 PM EST How to Manage Common Symptoms Associated with COVID for Adults Fever- Fever is a temperature over 100.4 F and can occur when the body is fighting an infection. Tohelp treat a fever: Drink plenty of fluids and stay well hydrated. Eat small amounts of easy to digest food. Rest. Your body needs rest to recover, but getting up and moving around the house frequently is a good idea. You should try to continue doing your normal daily activities (bathing, toileting, grooming, cooking), though you will probably feel tired, and need to rest often. Avoid any heavy activity or exercise, as this will increase your body temperature. Dress in light clothing and stay covered in a light sheet. Keep the room temperature cool. Take a slightly warm (not cold or cool) bath, or apply damp washcloths to the forehead and wrists. Cough- Cough is a common symptom associated with COVID and can be bothersome. To help treat a cough: Stay well hydrated. Try warm water or tea with lemon and/or honey to help soothe the cough. Use a humidifier to add moisture to the air. Try a product with menthol, like a cough drop or a rub for your chest such as Vicks, which can helpreduce cough. Try cough drops. Avoid smoking and other strong odors or perfumes. Try breathing exercises to keep your lungs open and clear. Take a big deep breath through your noseand hold for 5 seconds before slowly releasing. Repeat frequently, while you are awake. Congestion- Runny nose or nasal congestion can occur with COVID. Treatment can help relieve symptoms: Try OTC nasal saline spray, or nasal saline rinse to relieve mucus congestion. Nasal strips can help keep nasal passages open, to increase airflow. Elevating your head with an extra pillow in bed can help reduce congestion. Using a humidifier can increase moisture in the air, and make breathing easier. Sore Throat- Another common symptom with COVID, can be managed at home by: Stay well hydrated. Gargle with salt water - mix teaspoon salt with 1 cup of warm water and gargle. This helps to loosen mucus in the back of the throat and may reduce discomfort. Try ice chips, popsicles or lozenges to soothe the throat. Nausea/Vomiting/Diarrhea- These are common symptoms, and staying hydrated is most important. If you are nauseous or vomiting, start with small sips of water every 10-15 minutes and increase astolerated. You can try sucking an ice cube too. If tolerating, you can try pedialyte or Gatorade, or flat sprite or winter-nael. Start slowly and increase as you are able to. Instead of meals, try smaller, more frequent snacks. Try eating bland foods like crackers, toast, rice, and applesauce. Avoid spicy, greasy or fried foods and dairy containing foods. Even if you aren't feeling hungry due to lack of smell or taste, it is important to try to take in some food when you are able. After drinking and eating, rest in an upright position for up to two hours as needed to help decrease nauseous feelings. Try closing your eyes, avoid moving and watching TV. Avoid strong odors that can make you feel more nauseated. When to seek emergency medical attention Look for emergency warning signs for COVID-19. If having any of these symptoms, seek emergency medical care immediately: Trouble breathing Persistent pain or pressure in the chest New confusion Inability to wake or stay awake Bluish lips or face *This list is not all possible symptoms. Please call your medical provider for any other symptoms that are severe or concerning to you. documented in this encounterSelect Medical [facility]12-05-2022 History of Present illness Narrative* Colton Diallo APRN.CNP - 08/03/2022 1:55 PM EST Subjective HPI Nontoxic-appearing male presents to urgent care with chief complaint of fever and cough. Duration of symptoms 2 days. Associated symptoms with today's chief complaint are on and off headache, muscle aches, fatigue, nonproductive cough, and fever. Patient states they have used [id number] medication with some success. Patient denies any pain at this time. Patient denies any visual changes, visual disturbance, shortness of breath, rash, exercise intolerance, pleuritic pain, productive cough,abdominal pain, nausea, vomiting, chest pain, or change in bowel or bladder habits. Past medical history prescription medication use allergies reviewed. .Patient presents with: Head Congestion: drainage, fever x 2 days PAST MEDICAL HISTORY Diagnosis Date Alcohol use 07/10/2016 3-5 day Back pain Cervical radiculopathy 12/16/2020 Fatty liver 03/28/2016 Heart rate fast on BB Hypertension Mixed hyperlipidemia 06/28/2014 Obesity, Class II, BMI 35-39.9 12/16/2020 JOSELITO (obstructive sleep apnea) resolved with weight loss Spinal stenosis in cervical region Tachycardia, unspecified on BB PAST SURGICAL HISTORY Procedure Laterality Date ALLOGRAFT FOR SPINE SURGERY ONLY STRUCTURAL 08/30/2011 FUSION AND REPLACED DISC lumbar ANTERIOR INSTRUMENTATION 2-3 VERTEBRAL SEGMENTS APPL-INTERVERTEBRAL BIOMECHANICAL DEVICES COLONOSCOPY FLX DX W/COLLJ SPEC WHEN PFRMD 09/28/2014 Colonoscopy, repeat 5 yrs PAST SURGICAL HISTORY OF back injections and disc biopsy PAST SURGICAL HISTORY OF 06/17/2021 C5-C6, C6-C7 anterior cervical discectomy and fusion, Insertion of intervertebral interbody device at C5-C6, C6-C7, anterior spinal instrumentation C5-C7, Use of structural allograft ALLERGIES Ativan [Lorazepam], Paxil [Paroxetine Hcl], and Zoloft [Sertraline] MEDICATIONS cyclobenzaprine (FLEXERIL) 10 mg tablet Take 1 tablet by mouth three times daily as needed for muscle spasm. (Patient not taking: Reported on 08/03/2022) cyclobenzaprine (FLEXERIL) 5 mg tablet Take 1 tablet by mouth three times daily as needed for muscle spasm. (Patient not taking: Reported on 02/26/2022 ) metoprolol succinate ER (TOPROL XL) 50 mg 24 hr tablet Take 1 tablet by mouth once daily. (Patient not taking: Reported on 08/03/2022) gabapentin (NEURONTIN) 300 mg capsule Take 1 capsule by mouth three times daily for 90 days. (Patient not taking: Reported on 08/03/2022) lisinopril-hydroCHLOROthiazide (PRINZIDE,ZESTORETIC) 20-12.5 mg per tablet Take 1 tablet by mouth every morning. (Patient not taking: Reported on 08/03/2022) FAMILY HISTORY Problem Relation Age of Onset Colon Cancer Father 50 Diabetes Father Hypertension Father Prostate Cancer Father 54 Colon Cancer Paternal Grandfather Diabetes Paternal Grandfather Prostate Cancer Paternal Grandfather 50'S Colon Cancer Paternal Uncle LATE 50'S Coronary Artery Disease Maternal Aunt Diabetes Paternal Uncle Diabetes Paternal Aunt Hypertension Paternal Grandmother Hypertension Paternal Aunt Hypertension Paternal Uncle Hypertension Maternal Aunt Hypertension Maternal Aunt Prostate Cancer Paternal Uncle 50'S Social History Tobacco Use Smoking status: Every Day Packs/day: 0.50 Years: 21.00 Pack years: 10.50 Types: Cigarettes Smokeless tobacco: Never Vaping Use Vaping Use: Never used Substance Use Topics Alcohol use: Yes Alcohol/week: 8.0 - 12.0 standard drinks Types: 8 - 12 Cans of Beer (12oz) per week Comment: moderate amount of alcohol, 1-2 drinks a day Drug use: Never BP 164/94 Pulse 110 Temp (!) 38.7 C (101.6 F) Resp 18 Wt 113.9 kg (251 lb) SpO2 96% BMI37.07 kg/m Bp 149/88 hr 90 Review of Systems Constitutional: Positive for chills, fever and malaise/fatigue. HENT: Positive for congestion and ear pain. Negative for ear discharge, sinus pain and sore throat. Eyes: Negative for blurred vision, pain, discharge and redness. Respiratory: Positive for cough. Negative for hemoptysis, sputum production, shortness of breath, wheezing and stridor. Cardiovascular: Negative for chest pain. Gastrointestinal: Negative for abdominal pain, diarrhea, nausea and vomiting. Musculoskeletal: Positive for myalgias. Skin: Negative for itching and rash. Neurological: Positive for headaches. Negative for dizziness. Objective Physical Exam Constitutional: General: He is not in acute distress. Appearance: He is not diaphoretic. HENT: Head: Normocephalic. Right Ear: Tympanic membrane, ear canal and external ear normal. Left Ear: Tympanic membrane, ear canal and external ear normal. Nose: Congestion present. Mouth/Throat: Mouth: Mucous membranes are moist. Pharynx: Oropharynx is clear. No oropharyngeal exudate or posterior oropharyngeal erythema. Eyes: Conjunctiva/sclera: Conjunctivae normal. Pupils: Pupils are equal, round, and reactive to light. Cardiovascular: Rate and Rhythm: Normal rate and regular rhythm. Heart sounds: Normal heart sounds. Pulmonary: Effort: Pulmonary effort is normal. No tachypnea, accessory muscle usage or respiratory distress. Breath sounds: Normal breath sounds. No stridor. No wheezing, rhonchi or rales. Abdominal: Palpations: Abdomen is soft. Tenderness: There is no abdominal tenderness. There is no guarding or rebound. Musculoskeletal: Cervical back: Normal range of motion and neck supple. No rigidity or tenderness. Lymphadenopathy: Cervical: No cervical adenopathy. Skin: General: Skin is warm and dry. Neurological: Mental Status: He is alert and oriented to person, place, and time. ASSESSMENT/PLAN: 1. Viral illness - ICD9: 079.99, ICD10: B34.9 - COVID WITH FLUA+B, ROUTINE Patient diagnosed with viral illness. Suspicious of influenza. Nontoxic- appearing. Patient states he has not taken his blood pressure pill in quite some time. Instructed patient to resume taking blood pressure medication and follow- up with PCP for reevaluation 3 to 5 days. Patient was educated on supportive therapies. Patient was instructed to immediately proceed to emergency room for any new, worsening, or symptoms lasting longer than anticipated. The patient's clinical presentation is otherwise unremarkable at this time. Based on exam and clinical finding, the patient is stable for discharge. Plan of care was discussed with patient. Patient verbalizes understanding and agrees to plan of care. This note was generated using Little Bird software. It may contain errors in wording, punctuation, or spelling. Colton Diallo APRN.MELISSA documented in this encounterSelect Medical [facility]07-03-2022 History of Present illness Narrative* Tarik Zheng APRN.CNP - 03/01/2022 9:49 AM EDT Patient presents with confusion, slurred speech. No further assessment done instructed to taketo ER right away. aggreable. documented in this encounterSelect Medical [facility]06-30-2022 History of Present illness Narrative* Melissa Carrasquillo PA-C - 02/26/2022 10:50 AM EDT This note was created using NoteWriter. Subjective Jason Moore is a 51 year old male. HPI Patient presents with left lower back pain for 3-4 days. He had gone to [facility] and drove back Wednesday. He denies any injury or trauma to the back. He did have an l5-s1 fusion more than 10 yearsago but hasn't had issues with the lower back since. He did have cervical surgery In 05/20 for radicular symptoms in his right arm. That seems to have healed well. He tried ibuprofen and tylenol otc. P ain goes into his buttock but no further down the leg. No weakness or numbness. No dysuria or urgency. No hematuria. No cp or shortness of breath. Review of Systems HENT: Negative. Eyes: Negative. Respiratory: Negative. Cardiovascular: Negative. Gastrointestinal: Negative. Endocrine: Negative. Genitourinary: Negative. Musculoskeletal: Positive for back pain. All other systems reviewed and are negative. PAST MEDICAL HISTORY Diagnosis Date Alcohol use 07/10/2016 3-5 day Back pain Cervical radiculopathy 12/16/2020 Fatty liver 03/28/2016 Heart rate fast on BB Hypertension Mixed hyperlipidemia 06/28/2014 Obesity, Class II, BMI 35-39.9 12/16/2020 JOSELITO (obstructive sleep apnea) resolved with weight loss Spinal stenosis in cervical region Tachycardia, unspecified on BB Current Outpatient Medications Medication Sig Dispense Refill predniSONE (DELTASONE) 20 mg tablet Take 2 tablets by mouth once daily for 5 days. 10 tablet 0 cyclobenzaprine (FLEXERIL) 10 mg tablet Take 1 tablet by mouth three times daily as needed for muscle spasm. 15 tablet 0 cyclobenzaprine (FLEXERIL) 5 mg tablet Take 1 tablet by mouth three times daily as needed for muscle spasm. (Patient not taking: Reported on 02/26/2022 ) 12 tablet 0 metoprolol succinate ER (TOPROL XL) 50 mg 24 hr tablet Take 1 tablet by mouth once daily. 90 tablet1 gabapentin (NEURONTIN) 300 mg capsule Take 1 capsule by mouth three times daily for 90 days. 90 capsule 2 lisinopril-hydroCHLOROthiazide (PRINZIDE,ZESTORETIC) 20-12.5 mg per tablet Take 1 tablet by mouth every morning. 90 tablet 1 No current facility-administered medications for this visit. PAST SURGICAL HISTORY Procedure Laterality Date ALLOGRAFT FOR SPINE SURGERY ONLY STRUCTURAL 08/30/2011 FUSION AND REPLACED DISC lumbar ANTERIOR INSTRUMENTATION 2-3 VERTEBRAL SEGMENTS APPL-INTERVERTEBRAL BIOMECHANICAL DEVICES COLONOSCOPY FLX DX W/COLLJ SPEC WHEN PFRMD 09/28/2014 Colonoscopy, repeat 5 yrs PAST SURGICAL HISTORY OF back injections and disc biopsy PAST SURGICAL HISTORY OF 06/17/2021 C5-C6, C6-C7 anterior cervical discectomy and fusion, Insertion of intervertebral interbody device at C5-C6, C6-C7, anterior spinal instrumentation C5-C7, Use of structural allograft FAMILY HISTORY Problem Relation Age of Onset Colon Cancer Father 50 Diabetes Father Hypertension Father Prostate Cancer Father 54 Colon Cancer Paternal Grandfather Diabetes Paternal Grandfather Prostate Cancer Paternal Grandfather 50'S Colon Cancer Paternal Uncle LATE 50'S Coronary Artery Disease Maternal Aunt Diabetes Paternal Uncle Diabetes Paternal Aunt Hypertension Paternal Grandmother Hypertension Paternal Aunt Hypertension Paternal Uncle Hypertension Maternal Aunt Hypertension Maternal Aunt Prostate Cancer Paternal Uncle 50'S Social History Tobacco Use Smoking status: Current Every Day Smoker Packs/day: 0.50 Years: 21.00 Pack years: 10.50 Smokeless tobacco: Never Used Vaping Use Vaping Use: Never used Substance Use Topics Alcohol use: Yes Alcohol/week: 8.0 - 12.0 standard drinks Types: 8 - 12 Cans of Beer (12oz) per week Comment: moderate amount of alcohol, 1-2 drinks a day Drug use: Never Objective BP 142/94 Pulse 101 Temp 36.6 C (97.8 F) Resp 18 Wt 109.3 kg (241 lb) SpO2 97% BMI 35.59 kg/m Physical Exam Vitals reviewed. Constitutional: Appearance: Normal appearance. HENT: Head: Normocephalic and atraumatic. Cardiovascular: Rate and Rhythm: Normal rate and regular rhythm. Heart sounds: Normal heart sounds. Pulmonary: Effort: Pulmonary effort is normal. Breath sounds: Normal breath sounds. Musculoskeletal: Cervical back: Neck supple. Comments: No tenderness on palpation of the lumbar midline. He is tender with some spasm noted on the left paraspinal muscle of the lumbar back. No rash. Increased pain wi th twisted. Normal strengthand sensation in lower extremities. dtrs intact and symmetrical bilaterally. Able to go up on toes and back on heels Neurological: Mental Status: He is alert. Assessment and Plan ASSESSMENT/PLAN: 1. Acute left-sided low back pain with left-sided sciatica - ICD9: 724.2, 724.3, ICD10: M54.42 xrays show prior surgery with hardware intact. l4-l5 DDD. Will treat with prednisone and flexeril. Gentle stretching. Ice. If not improving follow up with pcp. Patient agreeable with this plan. - XR LUMBAR GENERAL 3V AP/LAT/L5-S1 Melissa Carrasquillo PA-C documented in this encounterSelect Medical Ohio[facility]06-30-2022 History of Present illness Narrative* Isaura Boykin RT(R) - 02/26/2022 10:20 AM EDT Radiology Service Progress Note PATIENT NAME: Jason Moore DATE OF SERVICE: February 26, 2022 TIME: 10:20 AM PATIENT IDENTITY VERIFICATION COMPLETED USING TWO (2) IDENTIFIERS: Name and Date of confirmedby patient verbally. FALL SCREENING: Has the patient had 2 falls in the last year or 1 fall with injury or currently using an Ambulatory Assistive Device (Walker, Cane, Wheelchair, Crutches, etc.)? No PATIENT GENDER DATA: Male PATIENT RELEVANT IMPLANT DATA REVIEWED: Yes RADIOLOGY DEPARTMENT: General X-ray: Exam(s) Completed: Spine X-Ray(s): Lumbar AP / LAT / L5-S1 PERIPHERAL IV DATA: Not applicable SIGNED BY: RT Mando(R) February 26, 2022 10:20 AM documented in this encounterSelect Medical [facility]health [facility]12-30-2021 NoteHNO ID: [id number] Author: Flip Gonzalez MD Service: ? Author Type: Physician Type: Progress Notes Filed: 08/28/2021 11:26 AM Note Text: Flip Gonzalez M.D. [facility] - Orthopedic Spine Surgeon [address], [facility] [phone] [facility] [address] [address], [facility] [address] Phone: [phone] ([phone]) FAX: [phone] ([place]) Date of visit: August 28, 2021 Patient Name: Mr.Henry Clayton Moore Date of : 1970 Current Age: [age] year old Sex: male MRN/E# [id number] Last Office Visit: Visit date not found Postop Cervical ASSESSMENT: Surgery Date: 06/17/21 Surgery Type: C5-C7 ACDF Incision: Healed PLAN: 1.) Activity: As tolerated. 2.) Brace: None 3.) Scripts: None required Proper use and precautions discussed for prescribed medications. 5.) Follow up: 3 months 6.) Comments: Doing well, much improved strength CC: Neck surgery HPI: Brace type: None Postop pain control?: None Postop pain control current medications: None Progress: Patient is extremely pleased with his progress. Reports significant improvement of pre-operative symptoms. Reports improved strength of right arm. He is able to make a three-pointer basketball shot which he could not do before surgery. He has no complaints at today's visit. ROS: No fevers, chills night sweats, excessive drainage from incision, new neurologic issues. No chest pain, shortness of breath, leg swelling, changes in bowel/bladder. No dysphagia (or within acceptable range for postoperative stage). PHYSICAL EXAM: Neck: Well approximated. No erythema, drainage, or swelling noted. Appearance within normal limits for stage of surgery. Appearance within normal limits for stage of surgery. Trachea midline Upper extremities: Sensation: Intact to light touch Upper Extremity Strength Exam Right Left Deltoid 5 5 Biceps 5 5 Triceps 5 5 Wrist Extension 5 5 Interossei 5 5 Lower Extremity Strength Exam Right Left Psoas 5 5 Quadriceps 5 5 DF 5 5 EHL 5 5 PF 5 5 Lower extremities: Stable examination. No swelling. No calf tenderness. TESTING/IMAGING: Cervical lateral and AP Alignment: Stable. Hardware: Intact. No gross failure. C5-C7 anterior cervical plate and screws in stable position Fusion status: No mc pseudoarthrosisRedington-[facility]11-[facility]-2021 NoteHNO ID: [id number] Author: Flip Gonzalez MD Service: ? Author Type: Physician Type: Progress Notes Filed: 07/07/2021 4:01 PM Note Text: Jason Moore 50 year old male Employer And Job Title: None on file Years Of Education Completed: Not specified Marital Status: Flip Gonzalez MD [facility] Orthopedics Spine Surgery Postop Cervical ASSESSMENT: Surgery Date: 06/17/21 Surgery Type: C5-C7 ACDF Pre-operative symptoms: right arm pain, numbness, and weakness PLAN: 1.) Activity: As tolerated and Avoid bending, lifting > 10 lbs. 2.) Brace: for comfort 3.) Scripts: none required Proper use and precautions discussed for prescribed medications. 5.) Follow up: 6 weeks CC: Neck surgery HPI: Brace type: Farina Postop pain control?: Controlled Postop pain control current medications: Acetaminophen Progress: Patient reports resolution of right arm symptoms. He reports increased strength in right arm. Denies swallowing issues. Reports mild posterior neck pain with extension (2/10). Otherwise patient is doing well and has no complaints today. ROS: No fevers, chills night sweats, excessive drainage from incision, new neurologic issues. No chest pain, shortness of breath, leg swelling, changes in bowel/bladder. No dysphagia (or within acceptable range for postoperative stage). PHYSICAL EXAM: Neck: Well approximated. No erythema, drainage, or swelling noted. Appearance within normal limits for stage of surgery. Appearance within normal limits for stage of surgery. Trachea midline Upper extremities: Sensation: Intact to light touch Upper Extremity Strength Exam Right Left Deltoid 5 5 Biceps 5 5 Triceps 5 5 Wrist Extension 5 5 Interossei 5 5 Lower Extremity Strength Exam Right Left Psoas 5 5 Quadriceps 5 5 DF 5 5 EHL 5 5 PF 5 5 Lower extremities: Stable examination. No swelling. No calf tenderness. TESTING/IMAGING: Cervical lateral and AP Alignment: Stable compared to previous radiographs Hardware: Intact. No gross failure. C5-C7 ACDF with interbodies. Fusion status: No mc pseudoarthrosisRedington-[facility]11-08-2021 NoteHNO ID: [id number] Author: Lola Hernandez Service: ? Author Type: Coiled Tubing Supervisor Type: Progress Notes Filed: 07/07/2021 4:01 PM Note Text: REVIEW OF SYSTEMS: GENERAL: Well developed, well nourished. No acute distress PAIN: Pain neck CARDIOVASCULAR: HTN MSK: Negative for joint swelling SKIN: Negative for lesions, rash, itching, metal sensitivity NEURO: Negative for seizure, trauma, numbness/tingling of extremities. ENDOCRINE: Negative for diabetic associated symptoms HEMATOLOGY: Negative for excessive bleeding, clots, bleeding disorders.[facility]10-20-2021 NoteHNO ID: [id number] Author: Farida Marin RPh Service: Pharmacy Author Type: Pharmacist Type: Plan of Care Filed: 06/18/2021 1:18 PM Note Text: DISCHARGE MEDICATION REVIEW BY PHARMACY Patient Name: Jason Moore Account #: Data Unavailable Admission Date: 06/17/2021 Date of Contact: June 18, 2021 Time of Contact: 1:18 PM Medication list was reviewed by a Pharmacist for drug interactions or drug related problems:Yes Below is a summary of pharmacist recommendations discussed with LIP: No Recommendations at this time from Discharge Medication List. Farida Marin RPh June 18, 2021 1:18 PM Pager: [phone] 06/18/2021 1:18 PM Medication List START taking these medications cyclobenzaprine 5 mg tablet Commonly known as: FLEXERIL Take 1 tablet by mouth three times daily as needed for muscle spasm. docusate sodium 100 mg capsule Commonly known as: COLACE Take 1 capsule by mouth twice daily for 7 days. oxyCODONE IR 5 mg immediate release tablet Commonly known as: ROXICODONE Take 1 tablet by mouth every 6 hours as needed for pain for up to 7 days. CONTINUE taking these medications gabapentin 300 mg capsule Commonly known as: NEURONTIN Take 1 capsule by mouth three times daily for 90 days. lisinopril-hydroCHLOROthiazide 20-12.5 mg per tablet Commonly known as: PRINZIDE,ZESTORETIC Take 1 tablet by mouth every morning. metoprolol succinate ER 50 mg 24 hr tablet Commonly known as: TOPROL XL Take 1 tablet by mouth once daily. Where to Get Your Medications These medications [facility] sent to [facility] [place] [address] - [address] [facility] - [phone] [id number] [address] [facility] [place] [address] ? cyclobenzaprine 5 mg tablet ? docusate sodium 100 mg capsule ? oxyCODONE IR 5 mg immediate release tabletRedington-[facility] 06-18-2021 NoteHNO ID: [id number] Author: Lorena Ferrer RN Service: Care Management Author Type: Registered Nurse Type: Care Mgt Progress Note Filed: 06/18/2021 8:41 AM Note Text: CARE MANAGEMENT PROGRESS NOTE SERVICE DATE: 06/18/2021 SERVICE TIME: 8:38 AM LOS: 1 day Admission Date: 06/17/2021 C5-6, C6-7 ACDF POD #1: 1. Weight Bearing Status:?WBAT BLE.?Limit lifting with BUE to <10 lbs.? 2. Dressing(s):?Gauze + Tegaderm. Change when removing drain. 3. Drain(s):?1/8 Hemovac. Output 25 mL since the time of surgery - removed. DISCHARGE ARRANGEMENT (list agency and phone number) Discharge Arrangement: Home Provider Name: REGGIE Phone: NA CAREGIVER ASSESSMENT: Caregiver is ready, willing and able to meet the patient's needs as recommended by the inter-professional team:: No Caregiver needed Does the patient have an acute stroke diagnosis, or has the patient had a stroke during this admission?: No Patient's transition needs and plan for meeting these needs: Home with spouse HANDOFF COMMUNICATION: Summary of care providers Kota GOMEZ TRANSPORTATION ARRANGEMENTS: Transportation Arrangements: Car ADDITIONAL CONTACT RESOURCES: SIGNATURE: Lorena Ferrer RN PATIENT NAME: Jason Moore DATE: June 18, 2021 TIME: 8:37 AM PAGER/CONTACT #: [phone]-Fairview [facility]10-20-2021 NoteHNO ID: [id number] Author: Doyle Patel MD Service: Orthopaedic Surgery Author Type: Resident Type: Progress Notes Filed: 06/18/2021 6:23 AM Note Text: Orthopaedic Surgery Inpatient Progress Note Assessment Jason Moore is a 50 year old male who is POD #1 status-post C5-6, C6-7 ACDF. Plan 1. Pain control. 2. Weight Bearing Status: WBAT BLE. Limit lifting with BUE to <10 lbs. 3. Dressing(s): Gauze + Tegaderm. Change when removing drain. 4. Drain(s): 1/8 Hemovac. Output 25 mL since the time of surgery - removed. 5. PT/OT: Evaluation AND recommendations - pending. 6. DVT PPx: SCDs. No chemoprophylaxis. 7. Antibiotic PPx: Acnef 2 g Q8H for 24 hours - completed. 8. Imaging: XR of cervical spine at 0700 today. 9. Anticipated Length of Stay/Disposition: 1-2 days/Home. Subjective No acute events overnight. Pain in right arm resolved. Pain in neck well controlled. Tolerating cervical collar. Swallowing without difficulty. Up to bathroom independently. No fevers, chills, chest pain, or shortness of breath. No new complaints. Hope for discharge today. Physical Examination Vitals BP 139/83 Pulse 70 Temp 36.7 ?C (98.1 ?F) (Axillary) Resp 18 Ht 175.3 cm (5' 9) Wt 115.2 kg (254 lb) SpO2 98% BMI 37.51 kg/m? General Alert and oriented. No acute distress. Cooperative with interview. Cervical Spine Collar in place in good position. Dressing clean, dry, and intact. Hemovac drain in anterior neck with good suction. Minimal sanguinous output in cannister. Sensation Right Left C5 normal normal C6 normal normal C7 normal normal C8 normal normal T1 normal normal Motor Right Left Deltoid 5 5 Biceps 5 5 Triceps 5 5 Wrist Extension 5 5 Interossei 5 5 Reflexes Right Left Biceps 2+ Normal 2+ Normal Triceps 2+ Normal 2+ Normal Brachioradialis 2+ Normal 2+ Normal Marcos's absent absent Inverted Radial absent absent Labs No new labs. Imaging AP/lateral XR of cervical spine pending. Doyle Patel MD Orthopaedic Surgery, PGY-5 Pager: [phone] Ortho Pager: [phone]10-19-2021 NoteHNO ID: [id number] Author: Elle Medina RN Service: ? Author Type: Registered Nurse Type: Nursing Progress Note Filed: 06/17/2021 3:21 PM Note Text: [id number] visiting with [facility]10-19-2021 NoteHNO ID: [id number] Author: Doyle Patel MD Service: Orthopaedic Surgery Author Type: Resident Type: Progress Notes Filed: 06/17/2021 1:20 PM Note Text: Orthopaedic Surgery Post-Op Check Subjective Awakened from anesthesia with issue. Pain in neck well-controlled. Objective Vitals BP 91/56 Pulse 84 Temp 37.3 ?C (99.1 ?F) (Temporal) Resp 19 SpO2 100% General No distress. Laying comfortably in bed, alert and oriented. Cervical Spine Cervical collar in place in good position. Dressing clean, dry, and intact. Drain in place with sanguinous drainage in cannister and good suction. Sensation Right Left C5 normal normal C6 normal normal C7 normal normal C8 normal normal T1 normal normal Motor Right Left Deltoid 5 5 Biceps 5 5 Triceps 5 5 Wrist Extension 5 5 Interossei 5 5 Lumbar Spine Sensation Right Left L1 normal normal L2 normal normal L3 normal normal L4 normal normal L5 normal normal S1 normal normal Motor Right Left Psoas 5 5 Quadriceps 5 5 DF 5 5 EHL 5 5 PF 5 5 Assessment Jason Moore is a 50 year old male who is POD #0 status-post C5-6, C6-7 ACDF. Pain well-controlled, exam appropriate Plan - Continue routine post-operative care as outlined in brief operative note. Doyle Patel MD Orthopaedic Surgery, PGY-5 Pager: [phone] Ortho Pager: [phone]10-19-[facility] History of Past illness Narrative* Problem Noted Date Resolved Date Status post cervical discectomy 06/17/2021 06/18/2021 Acute pain of right shoulder 12/18/2020 Family history of malignant neoplasm of gastrointestinal tract 09/28/2014 09/28/2014 documented as of this encounter (statuses as of 02/26/2022) [facility]10-19-2021 History of Past illness Narrative* Problem Noted Date Resolved Date Status post cervical discectomy 06/17/2021 06/18/2021 Acute pain of right shoulder 12/18/2020 Family history of malignant neoplasm of gastrointestinal tract 09/28/2014 09/28/2014 documented as of this encounter (statuses as of 03/01/2022) [facility]10-19-2021 History of Past illness Narrative* Problem Noted Date Resolved Date Status post cervical discectomy 06/17/2021 06/18/2021 Acute pain of right shoulder 12/18/2020 Family history of malignant neoplasm of gastrointestinal tract 09/28/2014 09/28/2014 documented as of this encounter (statuses as of 07/13/2022) [facility]10-19-2021 History of Past illness Narrative* Problem Noted Date Resolved Date Status post cervical discectomy 06/17/2021 06/18/2021 Acute pain of right shoulder 12/18/2020 Family history of malignant neoplasm of gastrointestinal tract 09/28/2014 09/28/2014 documented as of this encounter (statuses as of 08/03/2022) [facility]10-19-2021 History of Past illness Narrative* Problem Noted Date Resolved Date Status post cervical discectomy 06/17/2021 06/18/2021 Acute pain of right shoulder 12/18/2020 Family history of malignant neoplasm of gastrointestinal tract 09/28/2014 09/28/2014 documented as of this encounter (statuses as of 09/30/2022) [facility]10-19-2021 History of Past illness Narrative* Problem Noted Date Resolved Date Status post cervical discectomy 06/17/2021 06/18/2021 Acute pain of right shoulder 12/18/2020 Family history of malignant neoplasm of gastrointestinal tract 09/28/2014 09/28/2014 documented as of this encounter (statuses as of 10/06/2022) [facility]10-19-[facility]21 History of Past illness Narrative* Problem Noted Date Resolved Date Status post cervical discectomy 06/17/2021 06/18/2021 Acute pain of right shoulder 12/18/2020 Family history of malignant neoplasm of gastrointestinal tract 09/28/2014 09/28/2014 documented as of this encounter (statuses as of 10/23/2022) [facility]10-19-[facility]21 History of Past illness Narrative* Problem Noted Date Resolved Date Status post cervical discectomy 06/17/2021 06/18/2021 Acute pain of right shoulder 12/18/2020 Family history of malignant neoplasm of gastrointestinal tract 09/28/2014 09/28/2014 documented as of this encounter (statuses as of 2022) [facility]10-19-[facility]21 History of Past illness Narrative* Problem Noted Date Resolved Date Status post cervical discectomy 06/17/2021 06/18/2021 Acute pain of right shoulder 12/18/2020 Family history of malignant neoplasm of gastrointestinal tract 09/28/2014 09/28/2014 documented as of this encounter (statuses as of 12/21/2022) [facility]10-[facility] History of Past illness Narrative* Problem Noted Date Resolved Date Status post cervical discectomy 06/17/2021 06/18/2021 Acute pain of right shoulder 12/18/2020 Cervical radiculopathy 12/16/2020 3 Alcohol use 07/10/2016 01/22/2023 Overview: 3-5 day Family history of malignant neoplasm of gastrointestinal tract 09/28/2014 09/28/2014 Palpitations 06/28/2014 01/22/2023 Overview: CONTROLLED WITH BETA BHAVIN Tachycardia, unspecified 023 Overview: on BB documented as of this encounter (statuses as of 01/29/2023) [facility]10-19-2021 History of Past illness Narrative* Problem Noted Date Resolved Date Status post cervical discectomy 06/17/2021 06/18/2021 Acute pain of right shoulder 12/18/2020 Cervical radiculopathy 12/16/2020 3 Alcohol use 07/10/2016 01/22/2023 Overview: 3-5 day Palpitations 06/28/2014 01/22/2023 Overview: CONTROLLED WITH BETA BHAVIN Tachycardia, unspecified 023 Overview: on BB documented as of this encounter (statuses as of 02/04/2023) [facility]10-19-[facility] History of Past illness Narrative* Problem Noted Date Diagnosed Date Resolved Date Status post cervical discectomy 06/17/2021 06/18/2021 Acute pain of right shoulder 12/18/2020 03/28/2021 Cervical radiculopathy 12/16/202001/22 Alcohol use 07/10/2016 01/22/2023 Overview: 3-5 day Palpitations 06/28/2014 01/22/2023 Overview: CONTROLLED WITH BETA BHAVIN Tachycardia, unspecified Overview: on BB documented as of this encounter (statuses as of 04/13/2023) [facility]10-19-[facility] History of Past illness Narrative* Problem Noted Date Diagnosed Date Resolved Date Status post cervical discectomy 06/17/2021 06/18/2021 Acute pain of right shoulder 12/18/2020 03/28/2021 Cervical radiculopathy 12/16/202001/22 Alcohol use 07/10/2016 01/22/2023 Overview: 3-5 day Palpitations 06/28/2014 01/22/2023 Overview: CONTROLLED WITH BETA BHAVIN Tachycardia, unspecified Overview: on BB documented as of this encounter (statuses as of 04/20/2023) [facility]10-19-[facility] History of Past illness Narrative* Problem Noted Date Diagnosed Date Resolved Date Status post cervical discectomy 06/17/2021 06/18/2021 Acute pain of right shoulder 12/18/2020 03/28/2021 Cervical radiculopathy 12/16/202001/22 Alcohol use 07/10/2016 01/22/2023 Overview: 3-5 day Palpitations 06/28/2014 01/22/2023 Overview: CONTROLLED WITH BETA BHAVIN Tachycardia, unspecified Overview: on BB documented as of this encounter (statuses as of 05/05/2023) [facility]10-[facility] History of Past illness Narrative* Problem Noted Date Diagnosed Date Resolved Date Status post cervical discectomy 06/17/2021 06/18/2021 Acute pain of right shoulder 12/18/2020 03/28/2021 Cervical radiculopathy 12/16/202001/22 Alcohol use 07/10/2016 01/22/2023 Overview: 3-5 day Palpitations 06/28/2014 01/22/2023 Overview: CONTROLLED WITH BETA BHAVIN Tachycardia, unspecified Overview: on BB documented as of this encounter (statuses as of 05/06/2023) [facility]10-[facility] History of Past illness Narrative* Problem Noted Date Diagnosed Date Resolved Date Status post cervical discectomy 06/17/2021 06/18/2021 Acute pain of right shoulder 12/18/2020 03/28/2021 Cervical radiculopathy 12/16/202001/22 Alcohol use 07/10/2016 01/22/2023 Overview: 3-5 day Palpitations 06/28/2014 01/22/2023 Overview: CONTROLLED WITH BETA BHAVIN Tachycardia, unspecified Overview: on BB documented as of this encounter (statuses as of 05/13/2023) [facility]10-19-2021 NoteHNO ID: [id number] Author: Lashonda Estrella APRN.CRITICAL CARE SPECIALIST Service: Anesthesiology Author Type: Nurse Religion Instructor Type: Anesthesia Procedure Notes Filed: 06/17/2021 9:29 AM Note Text: ANESTHESIOLOGY PROCEDURE NOTE Airway General Information Procedure Start Time/Medication Administration: 06/17/2021 8:23 AM Patient location during procedure: OR Timeout Performed Pre-procedure: timeout performed Consent Obtained: Yes Patient identity confirmed: arm band and patient Staffing CRITICAL CARE SPECIALIST: Lashonda Estrella APRN.CRITICAL CARE SPECIALIST Other anesthesia staff/rotator: Lashonda Estrella APRN.CRITICAL CARE SPECIALIST Performed by: CRITICAL CARE SPECIALIST Indications and Patient Condition Preoxygenated: yes Patient position: sniffing Indications for airway management: anesthesia anesthesia circuit Method: asleep Final Airway Details Final airway type: endotracheal airway Final Endotracheal Airway: ETT Cuffed: yes Successful intubation technique: video laryngoscopy Devices used: [employer]rage[employer] Endotracheal tube insertion site: oral Blade: Andrew Blade size: #4 ETT size (mm): 7.5 Measured from: lips Measurement (cm): 27 Placement verified by: chest auscultation and capnometry Cormack-Lehane Classification: grade I - full view of glottis Number of attempts at approach: 1 Comments Head and neck maintained in neutral position throughout induction and intubation. Videoscope utilized to maintain neck stability and immobility. Dental and oral cavity remain at patient baseline post intubation. Bite blocks in place bilaterally. Taped to ETT to maintain patient safety. SIGNATURE: Lashonda Estrella APRN.CRNA PATIENT NAME: Jason Moore DATE: June 17, 2021 TIME: 9:27 AM CSN: [id number]-[facility]view [facility]10-19-2021 NoteHNO ID: [id number] Author: Claus mSyth MD Service: Anesthesiology Author Type: Physician Type: Anesthesia Procedure Notes Filed: 06/17/2021 8:53 AM Note Text: ANESTHESIOLOGY PROCEDURE NOTE PIV General Information Procedure End Time: 06/17/2021 8:30 AM Patient Location: OR Staffing Anesthesiologist: Claus Smyth MD Performed by: anesthesiologist Preparation Sterility Preparation: hand hygiene performed prior to procedure, surgical cap used, mask used, skin prep agent completely dried prior to procedure Site Prep: Chloraprep Procedure Details Indication: need for IV access Needle Size/Type: 18 gauge angiocath Orientation: Right Location: Hand Imaging Guidance Used: No SIGNATURE: Claus Smyth MD PATIENT NAME: Jason Moore DATE: June 17, 2021 TIME: 8:52 AM CSN: [id number]-Fairview [facility] Hospital10-07-2021 NoteHNO ID: [id number] Author: Solange Esparza PA-C Service: ? Author Type: Physician Track Mechanic Type: Progress Notes Filed: 06/05/2021 4:50 PM Note Text: ORANGE DOT: Patient has medical clearance appt scheduled for 06-10-21; please obtain prior to DOS.[facility]10-04-2021 NoteHNO ID: [id number] Author: Kota Barba APRN.CNP, DNP Service: ? Author Type: Nurse Practitioner Type: Progress Notes Filed: 06/02/2021 3:38 PM Note Text: Team - Please see if patient has an appt for preop. Kota Barba APRN.CNP, DNPRedington-Fairview General Hospital09-01-2021 NoteHNO ID: [id number] Author: Cary Mclean APRN.CNP Service: Anesthesiology Author Type: Nurse Practitioner Type: Progress Notes Filed: 04/30/2021 11:29 AM Note Text: Spoke with Guy at Dr. Marcos's office regarding patient's medical clearance. Requested she fax this to us or scan into [facility]. Minda to follow up.[facility]07-28-2021 NoteHNO ID: [id number] Author: Flip Gonzalez MD Service: ? Author Type: Physician Type: Progress Notes Filed: 03/26/2021 11:30 AM Note Text: Flip Gonzalez M.D. [facility] Orthopedics - Orthopedic Spine Surgeon [address] [place] [address], [facility] [address] [facility] [address] [address] [facility], [facility] [address] Phone: [phone] ([facility]) FAX: [phone] ([place]) SPINE SURGERY OUTPATIENT CONSULT SERVICE DATE: 03/26/2021 PCP: Kota Barba APRN.DYLAN TORRES CHIEF COMPLAINT: neck pain HISTORY OF PRESENT ILLNESS Jason Moore is a 50 year old male presenting with spouse. Mr. Moore presents as a new patient, referred by the [facility] for complaints of neck pain and right arm radicular symptoms since October. He describes neck pain with radiation into his right trapezius, down into his right lateral arm with weakness in his right tricep and numbness in the hand. He has undergone multiple sessions of Physical Therapy with some relief. He has also had a C7-T1 injection with some relief of the pain however still having persistent weakness of his hand and numbness/tingling. He has some mild upper extremity weakness in his triceps. He denies left arm symptoms, bowel or bladder issues, or balance problems. PREVIOUS CONSERVATIVE TREATMENTS: Physical Therapy: 01/09/2021, 01/06/2021, 01/03/2021, 12/31/2020, 12/26/2020, 12/23/2020, 12/20/2020, Mobic Flexeril HEP Gabapentin Right C7-T1 paramedian injection 02/18/2021 PREVIOUS SPINE SURGERIES: Low back fusion by Dr. Umanzor in [facility]- 2010 The following portions of the patient's history were reviewed and updated as appropriate: allergies, current medications, past family history, past medical history, past social history, past surgical history and problem list. ACTIVE PROBLEM LIST Left-Sided Low Back Pain Without Sciatica Essential Hypertension With Goal Blood Pressure Less Than 140/90 Palpitations Mixed Hyperlipidemia Well Adult Exam Neurofibroma Agoraphobia Situational Anxiety Fatty Liver Elevated Lfts Chronic Bilateral Low Back Pain Without Sciatica Prostate Cancer Screening Smoker Alcohol Use Obesity, Class II, Bmi 35-39.9 Cervical Radiculopathy Acute Pain of Right Shoulder Abdulaziz (Generalized Anxiety Disorder) PAST MEDICAL HISTORY Diagnosis Date - Alcohol use 07/10/2016 3-5 day - Back pain - Cervical radiculopathy 12/16/2020 - Fatty liver 03/28/2016 - Hypertension - Mixed hyperlipidemia 06/28/2014 - Obesity, Class II, BMI 35-39.9 12/16/2020 PAST SURGICAL HISTORY Procedure Laterality Date - APPL-INTERVERTEBRAL BIOMECHANICAL DEVICES - COLONOSCOP W/ OR W/O BRSH SPEC 09/28/14 Colonoscopy, repeat 5 yrs - INSERT VERT FIX DEV,ANT,3 SGMTS - PAST SURGICAL HISTORY OF back injections and disc biopsy - SPIN BONE ALLOGRFT STRUCTURAL 2012 FUSION AND REPLACED DISC FAMILY HISTORY Problem Relation Age of Onset [...] alcohol - Drug use: Not on file ALLERGIES Allergen Reactions - Ativan [Lorazepam] GI Upset - Paxil [Paroxetine H* GI Upset diarrhea - Zoloft [Sertraline] GI Upset MEDICATIONS: lisinopril-hydroCHLOROthiazide (PRINZIDE,ZESTORETIC) 20-12.5 mg per tablet Take 1 tablet by mouth every morning. gabapentin (NEURONTIN) 300 mg capsule Take 1 capsule by mouth three times daily for 90 days. metoprolol succinate ER (TOPROL XL) 25 mg 24 hr tablet Take 1 tablet by mouth once daily. REVIEW OF SYSTEMS Review of Systems Constitutional: Negative for chills, diaphoresis and fever. HENT: Negative for congestion, drooling and tinnitus. Eyes: Negative for photophobia, redness and visual disturbance. Respiratory: Negative for cough, shortness of breath and wheezing. Cardiovascular: Negative for chest pain, palpitations and leg swelling. Gastrointestinal: Negative for constipation, diarrhea, nausea and vomiting. Endocrine: Negative for cold intolerance and heat intolerance. Genitourinary: Negative for difficulty urinating, dysuria, frequency and urgency. Musculoskeletal: Positive for neck pain. Negative for back pain and gait problem. Skin: N (more content not included)...[facility]04-21-2021 History of Past illness Narrative* Problem Noted Date Diagnosed Date Resolved Date Acute pain of right shoulder 12/18/2020 03/28/2021 Cervical radiculopathy 12/16/202001/22 Alcohol use 07/10/2016 01/22/2023 Overview: 3-5 day Palpitations 06/28/2014 01/22/2023 Overview: CONTROLLED WITH BETA BHAVIN Tachycardia, unspecified Overview: on BB documented as of this encounter (statuses as of 05/17/2023) [facility]04-21-2021 History of Past illness Narrative* Problem Noted Date Diagnosed Date Resolved Date Acute pain of right shoulder 12/18/2020 03/28/2021 Cervical radiculopathy 12/16/202001/22 Alcohol use 07/10/2016 01/22/2023 Overview: 3-5 day Palpitations 06/28/2014 01/22/2023 Overview: CONTROLLED WITH BETA BHAVIN Tachycardia, unspecified Overview: on BB documented as of this encounter (statuses as of 05/21/2023) [facility]04-21-2021 History of Past illness Narrative* Problem Noted Date Diagnosed Date Resolved Date Acute pain of right shoulder 12/18/2020 03/28/2021 Cervical radiculopathy 12/16/202001/22 Alcohol use 07/10/2016 01/22/2023 Overview: 3-5 day Palpitations 06/28/2014 01/22/2023 Overview: CONTROLLED WITH BETA BHAVIN Tachycardia, unspecified Overview: on BB documented as of this encounter (statuses as of 05/24/2023) [facility]04-21-2021 History of Past illness Narrative* Problem Noted Date Diagnosed Date Resolved Date Acute pain of right shoulder 12/18/2020 03/28/2021 Cervical radiculopathy 12/16/202001/22 Alcohol use 07/10/2016 01/22/2023 Overview: 3-5 day Palpitations 06/28/2014 01/22/2023 Overview: CONTROLLED WITH BETA BHAVIN Tachycardia, unspecified Overview: on BB documented as of this encounter (statuses as of 05/28/2023) [facility]04-21-2021 History of Past illness Narrative* Problem Noted Date Diagnosed Date Resolved Date Acute pain of right shoulder 12/18/2020 03/28/2021 Cervical radiculopathy 12/16/202001/22 Alcohol use 07/10/2016 01/22/2023 Overview: 3-5 day Palpitations 06/28/2014 01/22/2023 Overview: CONTROLLED WITH BETA BHAVIN Tachycardia, unspecified Overview: on BB documented as of this encounter (statuses as of 06/09/2023) [facility]04-21-2021 History of Past illness Narrative* Problem Noted Date Diagnosed Date Resolved Date Acute pain of right shoulder 12/18/2020 03/28/2021 Cervical radiculopathy 12/16/202001/22 Alcohol use 07/10/2016 01/22/2023 Overview: 3-5 day Palpitations 06/28/2014 01/22/2023 Overview: CONTROLLED WITH BETA BHAVIN Tachycardia, unspecified Overview: on BB documented as of this encounter (statuses as of 06/14/2023) [facility]04-21-2021 History of Past illness Narrative* Problem Noted Date Diagnosed Date Resolved Date Acute pain of right shoulder 12/18/2020 03/28/2021 Cervical radiculopathy 12/16/202001/22 Alcohol use 07/10/2016 01/22/2023 Overview: 3-5 day Palpitations 06/28/2014 01/22/2023 Overview: CONTROLLED WITH BETA BHAVIN Tachycardia, unspecified Overview: on BB documented as of this encounter (statuses as of 06/15/2023) [facility]04-21-2021 History of Past illness Narrative* Problem Noted Date Diagnosed Date Resolved Date Acute pain of right shoulder 12/18/2020 03/28/2021 Cervical radiculopathy 12/16/202001/22 Alcohol use 07/10/2016 01/22/2023 Overview: 3-5 day Palpitations 06/28/2014 01/22/2023 Overview: CONTROLLED WITH BETA BHAVIN Tachycardia, unspecified Overview: on BB documented as of this encounter (statuses as of 06/17/2023) [facility]04-21-2021 History of Past illness Narrative* Problem Noted Date Diagnosed Date Resolved Date Acute pain of right shoulder 12/18/2020 03/28/2021 Cervical radiculopathy 12/16/202001/22 Alcohol use 07/10/2016 01/22/2023 Overview: 3-5 day Palpitations 06/28/2014 01/22/2023 Overview: CONTROLLED WITH BETA BHAVIN Tachycardia, unspecified Overview: on BB documented as of this encounter (statuses as of 06/18/2023) [facility]04-21-2021 History of Past illness Narrative* Problem Noted Date Diagnosed Date Resolved Date Acute pain of right shoulder 12/18/2020 03/28/2021 Cervical radiculopathy 12/16/202001/22 Alcohol use 07/10/2016 01/22/2023 Overview: 3-5 day Palpitations 06/28/2014 01/22/2023 Overview: CONTROLLED WITH BETA BHAVIN Tachycardia, unspecified Overview: on BB documented as of this encounter (statuses as of 07/07/2023) [facility]04-21-2021 History of Past illness Narrative* Problem Noted Date Diagnosed Date Resolved Date Acute pain of right shoulder 12/18/2020 03/28/2021 Cervical radiculopathy 12/16/202001/22 Alcohol use 07/10/2016 01/22/2023 Overview: 3-5 day Palpitations 06/28/2014 01/22/2023 Overview: CONTROLLED WITH BETA BHAVIN Tachycardia, unspecified Overview: on BB documented as of this encounter (statuses as of 07/08/2023) [facility]04-21-2021 History of Past illness Narrative* Problem Noted Date Diagnosed Date Resolved Date Acute pain of right shoulder 12/18/2020 03/28/2021 Cervical radiculopathy 12/16/202001/22 Alcohol use 07/10/2016 01/22/2023 Overview: 3-5 day Palpitations 06/28/2014 01/22/2023 Overview: CONTROLLED WITH BETA BHAVIN Tachycardia, unspecified Overview: on BB documented as of this encounter (statuses as of 07/20/2023) [facility]04-21-2021 History of Past illness Narrative* Problem Noted Date Diagnosed Date Resolved Date Acute pain of right shoulder 12/18/2020 03/28/2021 Cervical radiculopathy 12/16/202001/22 Alcohol use 07/10/2016 01/22/2023 Overview: 3-5 day Palpitations 06/28/2014 01/22/2023 Overview: CONTROLLED WITH BETA BHAVIN Tachycardia, unspecified Overview: on BB documented as of this encounter (statuses as of 08/05/2023) [facility]04-21-2021 History of Past illness Narrative* Problem Noted Date Diagnosed Date Resolved Date Acute pain of right shoulder 12/18/2020 03/28/2021 Cervical radiculopathy 12/16/202001/22 Alcohol use 07/10/2016 01/22/2023 Overview: 3-5 day Palpitations 06/28/2014 01/22/2023 Overview: CONTROLLED WITH BETA BHAVIN Tachycardia, unspecified Overview: on BB documented as of this encounter (statuses as of 10/08/2023) [facility]04-21-2021 History of Past illness Narrative* Problem Noted Date Diagnosed Date Resolved Date Acute pain of right shoulder 12/18/2020 03/28/2021 Cervical radiculopathy 12/16/202001/22 Alcohol use 07/10/2016 01/22/2023 Overview: 3-5 day Palpitations 06/28/2014 01/22/2023 Overview: CONTROLLED WITH BETA BHAVIN Tachycardia, unspecified Overview: on BB documented as of this encounter (statuses as of 10/08/2023) [facility]04-21-2021 History of Past illness Narrative* Problem Noted Date Diagnosed Date Resolved Date Acute pain of right shoulder 12/18/2020 03/28/2021 Cervical radiculopathy 12/16/202001/22 Alcohol use 07/10/2016 01/22/2023 Overview: 3-5 day Palpitations 06/28/2014 01/22/2023 Overview: CONTROLLED WITH BETA BHAVIN Tachycardia, unspecified Overview: on BB documented as of this encounter (statuses as of 10/13/2023) [facility]04-21-2021 History of Past illness Narrative* Problem Noted Date Diagnosed Date Resolved Date Acute pain of right shoulder 12/18/2020 03/28/2021 Cervical radiculopathy 12/16/202001/22 Alcohol use 07/10/2016 01/22/2023 Overview: 3-5 day Palpitations 06/28/2014 01/22/2023 Overview: CONTROLLED WITH BETA BHAVIN Tachycardia, unspecified Overview: on BB documented as of this encounter (statuses as of 10/13/2023) [facility]04-21-2021 History of Past illness Narrative* Problem Noted Date Diagnosed Date Resolved Date Acute pain of right shoulder 12/18/2020 03/28/2021 Cervical radiculopathy 12/16/202001/22 Alcohol use 07/10/2016 01/22/2023 Overview: 3-5 day Palpitations 06/28/2014 01/22/2023 Overview: CONTROLLED WITH BETA BHAVIN Tachycardia, unspecified Overview: on BB documented as of this encounter (statuses as of 10/29/2023) [facility]04-21-2021 History of Past illness Narrative* Problem Noted Date Diagnosed Date Resolved Date Acute pain of right shoulder 12/18/2020 03/28/2021 Cervical radiculopathy 12/16/202001/22 Alcohol use 07/10/2016 01/22/2023 Overview: 3-5 day Palpitations 06/28/2014 01/22/2023 Overview: CONTROLLED WITH BETA BHAVIN Tachycardia, unspecified Overview: on BB documented as of this encounter (statuses as of 11/13/2023) [facility]04-21-2021 History of Past illness Narrative* Problem Noted Date Diagnosed Date Resolved Date Acute pain of right shoulder 12/18/2020 03/28/2021 Cervical radiculopathy 12/16/202001/22 Alcohol use 07/10/2016 01/22/2023 Overview: 3-5 day Palpitations 06/28/2014 01/22/2023 Overview: CONTROLLED WITH BETA BHAVIN Tachycardia, unspecified Overview: on BB documented as of this encounter (statuses as of 11/15/2023) [facility]04-21-2021 History of Past illness Narrative* Problem Noted Date Diagnosed Date Resolved Date Acute pain of right shoulder 12/18/2020 03/28/2021 Cervical radiculopathy 12/16/202001/22 Alcohol use 07/10/2016 01/22/2023 Overview: 3-5 day Palpitations 06/28/2014 01/22/2023 Overview: CONTROLLED WITH BETA BHAVIN Tachycardia, unspecified Overview: on BB documented as of this encounter (statuses as of 11/16/2023) [facility]04-21-2021 History of Past illness Narrative* Problem Noted Date Diagnosed Date Resolved Date Acute pain of right shoulder 12/18/2020 03/28/2021 Cervical radiculopathy 12/16/202001/22 Alcohol use 07/10/2016 01/22/2023 Overview: 3-5 day Palpitations 06/28/2014 01/22/2023 Overview: CONTROLLED WITH BETA BHAVIN Tachycardia, unspecified Overview: on BB documented as of this encounter (statuses as of 11/23/2023) [facility]04-21-2021 History of Past illness Narrative* Problem Noted Date Diagnosed Date Resolved Date Acute pain of right shoulder 12/18/2020 03/28/2021 Cervical radiculopathy 12/16/202001/22 Alcohol use 07/10/2016 01/22/2023 Overview: 3-5 day Palpitations 06/28/2014 01/22/2023 Overview: CONTROLLED WITH BETA BHAVIN Tachycardia, unspecified Overview: on BB documented as of this encounter (statuses as of 11/23/2023) [facility]04-21-2021 History of Past illness Narrative* Problem Noted Date Diagnosed Date Resolved Date Acute pain of right shoulder 12/18/2020 03/28/2021 Cervical radiculopathy 12/16/202001/22 Alcohol use 07/10/2016 01/22/2023 Overview: 3-5 day Palpitations 06/28/2014 01/22/2023 Overview: CONTROLLED WITH BETA BHAVIN Tachycardia, unspecified Overview: on BB documented as of this encounter (statuses as of 11/30/2023) [facility]04-21-2021 History of Past illness Narrative* Problem Noted Date Diagnosed Date Resolved Date Acute pain of right shoulder 12/18/2020 03/28/2021 Cervical radiculopathy 12/16/202001/22 Alcohol use 07/10/2016 01/22/2023 Overview: 3-5 day Palpitations 06/28/2014 01/22/2023 Overview: CONTROLLED WITH BETA BHAVIN Tachycardia, unspecified Overview: on BB documented as of this encounter (statuses as of 12/03/2023) [facility]04-21-2021 History of Past illness Narrative* Problem Noted Date Diagnosed Date Resolved Date Acute pain of right shoulder 12/18/2020 03/28/2021 Cervical radiculopathy 12/16/202001/22 Alcohol use 07/10/2016 01/22/2023 Overview: 3-5 day Palpitations 06/28/2014 01/22/2023 Overview: CONTROLLED WITH BETA BHAVIN Tachycardia, unspecified Overview: on BB documented as of this encounter (statuses as of 12/03/2023) [facility]04-21-2021 History of Past illness Narrative* Problem Noted Date Diagnosed Date Resolved Date Acute pain of right shoulder 12/18/2020 03/28/2021 Cervical radiculopathy 12/16/202001/22 Alcohol use 07/10/2016 01/22/2023 Overview: 3-5 day Palpitations 06/28/2014 01/22/2023 Overview: CONTROLLED WITH BETA BHAVIN Tachycardia, unspecified Overview: on BB documented as of this encounter (statuses as of 12/03/2023) [facility]04-21-2021 History of Past illness Narrative* Problem Noted Date Diagnosed Date Resolved Date Acute pain of right shoulder 12/18/2020 03/28/2021 Cervical radiculopathy 12/16/202001/22 Alcohol use 07/10/2016 01/22/2023 Overview: 3-5 day Palpitations 06/28/2014 01/22/2023 Overview: CONTROLLED WITH BETA BHAVIN Tachycardia, unspecified Overview: on BB documented as of this encounter (statuses as of 12/08/2023) [facility]04-21-2021 History of Past illness Narrative* Problem Noted Date Diagnosed Date Resolved Date Acute pain of right shoulder 12/18/2020 03/28/2021 Cervical radiculopathy 12/16/202001/22 Alcohol use 07/10/2016 01/22/2023 Overview: 3-5 day Palpitations 06/28/2014 01/22/2023 Overview: CONTROLLED WITH BETA BHAVIN Tachycardia, unspecified Overview: on BB documented as of this encounter (statuses as of 12/09/2023) [facility]04-21-2021 History of Past illness Narrative* Problem Noted Date Diagnosed Date Resolved Date Acute pain of right shoulder 12/18/2020 03/28/2021 Cervical radiculopathy 12/16/202001/22 Alcohol use 07/10/2016 01/22/2023 Overview: 3-5 day Palpitations 06/28/2014 01/22/2023 Overview: CONTROLLED WITH BETA BHAVIN Tachycardia, unspecified Overview: on BB documented as of this encounter (statuses as of 12/10/2023) [facility]04-21-2021 History of Past illness Narrative* Problem Noted Date Diagnosed Date Resolved Date Acute pain of right shoulder 12/18/2020 03/28/2021 Cervical radiculopathy 12/16/202001/22 Alcohol use 07/10/2016 01/22/2023 Overview: 3-5 day Palpitations 06/28/2014 01/22/2023 Overview: CONTROLLED WITH BETA BHAVIN Tachycardia, unspecified Overview: on BB documented as of this encounter (statuses as of 12/16/2023) [facility]04-21-2021 History of Past illness Narrative* Problem Noted Date Diagnosed Date Resolved Date Acute pain of right shoulder 12/18/2020 03/28/2021 Cervical radiculopathy 12/16/202001/22 Alcohol use 07/10/2016 01/22/2023 Overview: 3-5 day Palpitations 06/28/2014 01/22/2023 Overview: CONTROLLED WITH BETA BHAVIN Tachycardia, unspecified Overview: on BB documented as of this encounter (statuses as of 12/17/2023) [facility]04-19-2021 History of Present illness Narrative* Kirti De Leon (Rt), Tech - 12/16/2020 2:20 PM EDT Radiology Service Progress Note PATIENT NAME: Jason Moore DATE OF SERVICE: December 16, 2020 TIME: 2:26 PM PATIENT IDENTITY VERIFICATION COMPLETED USING TWO (2) IDENTIFIERS: Name and Date of confirmedby patient verbally. FALL SCREENING: Has the patient had 2 falls in the last year or 1 fall with injury or currently using an Ambulatory Assistive Device (Walker, Cane, Wheelchair, Crutches, etc.)? No PATIENT GENDER DATA: Male PATIENT RELEVANT IMPLANT DATA REVIEWED: Not Applicable RADIOLOGY DEPARTMENT: General X-ray: Exam(s) Completed: Spine X-Ray(s): Cervical AP / LAT / FLEX-EXT Upper Extremity X-Ray(s): Shoulder, AP / TRUE AP right : PERIPHERAL IV DATA: Not applicable SIGNED BY: RT Adina December 16, 2020 2:26 PM [facility] camp[facility] summary Author Dr. Salazar [facility] October 08, 2022 9:28am Note Date/Time October 08, 2022 9 :28am [facility] Medical Records Department [address] [place] [id number] Instructions for Home/Discharge Instructions 10/08/22927 MR#: [id number] Acct: [id number] Name: JASON MOORE Jr. Rep #:[id number] : 1970 51 From: Ludy Salazar MD PCP: Dr. Colton Rosario MD Status:ADM IN Discharge Instructions Diet Discharge Diet: Low fat / Low cholesterol Activity Discharge Activity: Return to Normal Activity Weight Bearing Status: Weight bearing as tolerated Dressing / Incision Call your doctor if you observe: Fever of 101 or Higher, Shortness of breath, Dizziness, Swelling in the ankles, Chest pain and Increased palpitations (irregular heartbeat) Follow Up Care Test Results: Test results from this visit will be discussed in further detail at your follow- up appointment, if applicable. Discharge Plan Admission Admit Date/Time: 10/06/22 10:58 Primary Reason for Your Visit: hypertensive urgency Attending Provider: Ludy Salazar Primary Care Provider: Colton Rosario Instructions Patient Instructions: ED Hypertension, Established, ED High Blood Pressure Hypertension Discharge Orders/Prescriptions Prescriptions: New amlodipine 10 mg Tablet 10 mg PO DAILY Qty: 30 2RF hydrochlorothiazide 25 mg Tablet 25 mg PO DAILY Qty: 30 2RF lisinopril 40 mg Tablet 40 mg PO DAILY Qty: 30 2RF Discontinued amlodipine 5 mg tablet 5 mg PO DAILY Referrals / Follow Up: Colton Rosario MD [Primary Care Provider] - Within 2 Weeks Kota Barba NP, [facility] CONS[facility]ANT-C [Non-Staff] - Disposition Disposition (needs filled in before D/C Order can be placed): Home, Self Care 10/08/22927<Electronically signed by Ludy Salazar MD>Ludy Salazar MD CC: Dr. Colton Rosario MD ~ Signed [facility] Work Phone: Discharge summary Author [facility] October 08, 2022 10:30am Note Date/Time October 08, 2022 9 :29am [facility] Medical Records Department [address] [place] [id number] Discharge Summary 10/08/22927 MR#: [id number] Acct: [id number] Name: JASON MOORE JrHarmeet Rep #:[id number] : 1970 51 From: Ludy Salazar MD PCP: Dr. Colton Rosario MD Status:ADM IN Location: [place] [address] Providers Date of Admission: 10/06/22 Date of Discharge: 10/08/22 Primary Care Physician: Dr. Colton Rosario MD Reason For Visit: HYPERTENSIVE URGENCY Diagnosis Discharge Diagnosis (1) Hypertensive urgency: Status: Acute Code(s): I16.0 - Hypertensive urgency Plan #Hypertensive urgency due to noncompliance * admit to PCU * resume patient's BP meds- lisinopril, HCTZ and metoprolol * IV hydralazine prn * 2D echo ordered * EKG showed some t wave inversions in the lateral leads not present in previous EKGs * cycle troponins * #Hypokalemia: K is 3.4. Will replace and trend #CKD IIIa: Cr is 1.36, which is around his baseline from 2018. Will monitor #Nicotine dependence: smokes at least half a pack daily. counseled to quit. Nicotine patch 21mg daily. DVT prophylaxis: lovenox COde status: full code * Patient counseled extensively about different types of CODE STATUS including full code, DNR CCA and DNR CCA. Patient elects to be full code. * Total [id number] time 17 minutes. Medications at Discharge Home Medications amlodipine 10 mg tablet 10 mg PO DAILY #30 tabs 10/08/22 hydrochlorothiazide 25 mg tablet 25 mg PO DAILY #30 tabs 10/08/22 lisinopril 40 mg tablet 40 mg PO DAILY #30 tabs 10/08/22 Hospital Course Procedures 2-D Echocardiogram Summary of Care Provided Minutes Spent on Discharge: 47 Hospital Course: JASON MOORE, is a 51 M with a PMH as outlined who presents via the ED on 10/06/2022 after being referred from his PCPs office with markedly elevated blood pressure.? Patient has a history of high blood pressure but has not been compliant with his medication for at least 6 months.? He states he was in his usual state of health and went to her PCP appointment because his made him go.? When he went that his blood pressure was checked and his blood pressure wasmarkedly elevated with a systolic over 200.? He was therefore referred to the ED.? He denied any headaches, blurred vision, chest pain, palpitations, dizziness, nausea vomiting or diarrhea.? Review of systems otherwise negative. Vitals in the ED with blood pressure of 194/123, pulse rate of 75 respirate rateof 18 and he was on room air.? CBC showed hemoglobin of 17.8 but was otherwise unremarkable.? Chemistry was significant for potassium of 3.4 and creatinine of 1.36.? Initial troponin was 49.?He was admitted to be managed for hypertensive urgency due to noncompliance. He was started on amlodipine, lisinopril and HCTZ.He had a 2D echo which showed severe left ventricular hypertrophy and EF of 65% and normal LVSF as well as stage I diastolic function, and apical sparing noted on the myocardial strain pattern; cannot completely exclude amyloid. he remainedstable and was discharged home on 10/08/2022. He was counseled to follow up with his PCP and was referred to cardiology o/.a of the abnormal 2D echo. HE was alsocounseled to keep a twice daily BP log and to present it to his PCP for adjustment of his BP meds as needed. Patient seen and examined prior to discharge. He felt much better and had no active complaints. BP had improved. Review of systems was otherwise negative. Labs and vitals reviewed Home meds reviewed and reconciled. Physical Exam Const alert, oriented x3 and no apparent distress General Appearance: cooperative and comfortable Orientation / Consciousness: awake Exam Limitations: no limitations HEENT normocephalic, head/scalp atraumatic, hearing grossly normal bilaterally and moist oral mucous membranes Mouth: oral and palatal mucosa normal Eyes PERRL, EOMs intact bilaterally and conjunctivae normal Neck no lymphadenopathy and supple Resp normal respiratory effort, no retractions, no use of accessory muscles and clearto auscultation bilaterally Cardio regular rate, regular rhythm, S1 normal heart sound and S2 normal heart sound GI normal to inspection, nondistended, normoactive bowel sounds, soft to palpation,non-tender and non-distended Extremity normal to inspection, full ROM and no clubbing, cyanosis or edema Skin no rashes or lesions noted Neuro oriented x3, CN's II-XII intact bilaterally, moves all extremities and no focal motor deficits Sensorium / Orientation: awake and alert Motor Exam: strength 5/5 throughout Psych affect normal Weight / BMI Weight Weight: 259 lb 0.69 oz Body Mass Index (BMI) 38.2 ABG / Lab / Microbiology Data Result Diagrams: 10/08/22 06:20 10/08/22 06:20 Laboratory: Laboratory Results - last 24 hr 10/08/22 06:20: WBC 6.8, RBC 4.92, Hgb 16.5, Hct 48.3, MCV 98.2 H, MCH 33.5 H, MCHC 34.2, RDW Std Deviation 42.9, RDW Coeff of María 11.9, Plt Count 201, MPV 11.0, Immature Gran % (Auto) 0.700, Neut % (Auto) 67.0, Lymph % (Auto) 22.9, Banner % (Auto) 7.5, Eos % (Auto) 1.3, Baso % (Auto) 0.6, Absolute Neuts (auto) 4.5, Absolute Lymphs (auto) 1.55, Nucleated RBC % 0 10/08/22 06:20: Sodium 135 L, Potassium 3.4 L, Chloride 102, Carbon Dioxide 27.0, Anion Gap 6, BUN 9, Creatinine 1.22, Estim Creat Clear Calc 73.24, Est GFR(MDRD) Af Amer 81, Est GFR (MDRD) Non-Af 67, BUN/Creatinine Ratio 7.4 L, [id number], Calcium 9.6 Radiography Diagnostic Testing: Radiology Impression Echocardiogram 10/06/22 15:43 Interpretation Summary Normal LV size. Severe concentric left ventricular hypertrophy. Left ventricular systolic function is normal. The estimated ejection fraction is 65 %. Stage 1 diastolic dysfunction. Apical sparing noted on the myocardial strain pattern. Cannot completely excludeamyloid. The global longitudinal strain = -12.4% (abnormal). The global longitudinal strain is severely abnormal. Apical sparing noted on the myocardial strain pattern. Cannot completely exclude amyloid. Ordering Physician: Ludy Salazar Performed By: Lona Zepeda D/C Instructions Discharge Diet: Low fat / Low cholesterol Discharge Activity: Return to Normal Activity Weight Bearing Status: Weight bearing as tolerated Call your doctor if you observe: Fever of 101 or Higher, Shortness of breath, Dizziness, Swelling in the ankles, Chest pain and Increased palpitations (irregular heartbeat) Meaningful Use Info Meaningful Use Diagnoses (Choose all that apply): None applicable Discharge Plan Admission Admit Date/Time: 10/06/22 10:58 Primary Reason for Your Visit: hypertensive urgency Attending Provider: Ludy Salazar Primary Care Provider: Colton Rosario Instructions Patient Instructions: ED Hypertension, Established, ED High Blood Pressure Hypertension Discharge Orders/Prescriptions Prescriptions: New amlodipine 10 mg Tablet 10 mg PO DAILY Qty: 30 2RF hydrochlorothiazide 25 mg Tablet 25 mg PO DAILY Qty: 30 2RF lisinopril 40 mg Tablet 40 mg PO DAILY Qty: 30 2RF Discontinued amlodipine 5 mg tablet 5 mg PO DAILY Referrals / Follow Up: Colton Rosario MD [Primary Care Provider] - Within 2 Weeks Kota Barba NP, PRESALES CONSULTANT-C [Non-Staff] - Natanael Dunn MD [Med Staff - Active Staff] - Within 1 Month (follow for [id number] echo, with concern for amyloid.) Disposition Disposition (needs filled in before D/C Order can be placed): Home, Self Care Charges/Coding Visit Charges Inpatient E&M: 74336 Disch Hosp >30min 10/08/22 1030 <Electronically signed by Ludy Salazar MD> Cosigner Signature (if applicable): CC: Dr. Colton Rosario MD; Dr. Ludy Salazar MD~ Signed [facility] Work Phone: Evaluation note* Diagnosis Acute left-sided low back pain with left-sided sciatica- Primary [facility]* Diagnosis Onset Date Resolution Status Acute renal failure acute Diarrhea acute Hypokalemia acute Pneumonia [facility] Work Phone: Evaluation note* Diagnosis Slurred speech- Primary Other speech disturbance [facility] Diagnosis Onset Date Resolution Status Abnormal CT scan, chest acut e Acute renal failure acute Diarrhea acute High anion gap metabolic acidosis acute Hypokalemia acute Metabolic encephalopathy acu te Transaminitis acute [facility] Work Phone: Evaluation note* Diagnosis Screening for colon cancer Special screening for malignant neoplasms, colon [facility] Diagnosis Viral illness- Primary Unspecified viral infection, in conditions classified elsewhere and of unspecified site [facility] Diagnosis Essential hypertension with goal blood pressure less than 140/90- Primary Mixed hyperlipidemia Screening for diabetes mellitus [facility] Diagnosis Well adult exam- Primary Routine general medical examination at a health care facility Hypertension, essential Unspecified essential hypertension Essential hypertension with goal blood pressure less than 140/90 Polycythemia Polycythemia vera Screening for prostate cancer Special screening for malignant neoplasm of prostate Family history of prostate cancer Family history of malignant neoplasm of prostate Screening for colon cancer Special screening for malignant neoplasms, colon Family history of colon cancer Family history of malignant neoplasm of gastrointestinal tract [facility] Diagnosis Onset Date Resolution Status Abnormal ECG acute Hypertensive urgency acute Chronic renal insufficiency [facility] Work Phone: Evaluation note* Diagnosis Screening for colon cancer Special screening for malignant neoplasms, colon Family history of colon cancer Family history of malignant neoplasm of gastrointestinal tract [facility] Diagnosis Hypertension, essential Unspecified essential hypertension [facility] Diagnosis Screening for colon cancer- Primary Special screening for malignant neoplasms, colon Family history of colon cancer Family history of malignant neoplasm of gastrointestinal tract [facility] Diagnosis Acute midline low back pain without sciatica- Primary [facility] Diagnosis DDD (degenerative disc disease), lumbar- Primary Degeneration of lumbar or lumbosacral intervertebral disc [facility] Diagnosis Spinal stenosis of cervical region- Primary Spinal stenosis in cervical region DDD (degenerative disc disease), lumbar Degeneration of lumbar or lumbosacral intervertebral disc Mass of soft tissue of forearm Hand numbness Disturbance of skin sensation H/O cervical spine surgery Other postprocedural status [facility] Diagnosis DDD (degenerative disc disease), lumbar- Primary Degeneration of lumbar or lumbosacral intervertebral disc Spinal stenosis of cervical region Spinal stenosis in cervical region Mass of soft tissue of forearm Hand numbness Disturbance of skin sensation H/O cervical spine surgery Other postprocedural status [facility] Diagnosis DDD (degenerative disc disease), lumbar- Primary Degeneration of lumbar or lumbosacral intervertebral disc Spinal stenosis of cervical region Spinal stenosis in cervical region Mass of soft tissue of forearm Hand numbness Disturbance of skin sensation H/O cervical spine surgery Other postprocedural status [facility] Diagnosis Radiculopathy, cervical region- Primary Brachial neuritis or radiculitis nos DDD (degenerative disc disease), lumbar Degeneration of lumbar or lumbosacral intervertebral disc Spinal stenosis of cervical region Spinal stenosis in cervical region Hand numbness Disturbance of skin sensation H/O cervical spine surgery Other postprocedural status Paresthesia of skin Disturbance of skin sensation [facility] Diagnosis Spinal stenosis of cervical region- Primary Spinal stenosis in cervical region Mass of soft tissue of forearm Hand numbness Disturbance of skin sensation H/O cervical spine surgery Other postprocedural status DDD (degenerative disc disease), lumbar Degeneration of lumbar or lumbosacral intervertebral disc [facility] Diagnosis Spinal stenosis of cervical region- Primary Spinal stenosis in cervical region Mass of soft tissue of forearm Hand numbness Disturbance of skin sensation H/O cervical spine surgery Other postprocedural status DDD (degenerative disc disease), lumbar Degeneration of lumbar or lumbosacral intervertebral disc [facility] Diagnosis DDD (degenerative disc disease), lumbar- Primary Degeneration of lumbar or lumbosacral intervertebral disc Spinal stenosis of cervical region Spinal stenosis in cervical region Hand numbness Disturbance of skin sensation Mass of soft tissue of forearm H/O cervical spine surgery Other postprocedural status [facility] Diagnosis Cervical disc disorder with radiculopathy- Primary Brachial neuritis or radiculitis nos Spinal stenosis of cervical region Spinal stenosis in cervical region H/O cervical spine surgery Other postprocedural status [facility] Diagnosis Spinal stenosis in cervical region- Primary Cervical disc disorder with radiculopathy Brachial neuritis or radiculitis nos [facility] Diagnosis Spinal stenosis of cervical region Spinal stenosis in cervical region [facility] Diagnosis DDD (degenerative disc disease), lumbar Degeneration of lumbar or lumbosacral intervertebral disc Spinal stenosis of cervical region Spinal stenosis in cervical region Hand numbness Disturbance of skin sensation Radiculopathy of lumbar region Thoracic or lumbosacral neuritis or radiculitis, unspecified [facility] Diagnosis Spinal stenosis of lumbar region with neurogenic claudication Spinal stenosis, lumbar region, with neurogenic claudication [facility] Diagnosis Spinal stenosis of cervical region- Primary Spinal stenosis in cervical region [facility] Diagnosis Spinal stenosis in cervical region- Primary [facility] Diagnosis Spinal stenosis in cervical region- Primary Cervical disc disorder with radiculopathy Brachial neuritis or radiculitis nos H/O cervical spine surgery Other postprocedural status Lumbosacral stenosis Spinal stenosis, lumbar region, without neurogenic claudication Lumbosacral spondylosis with radiculopathy H/O lumbosacral spine surgery Personal history of surgery to other organs [facility] Diagnosis Spinal stenosis of cervical region- Primary Spinal stenosis in cervical region Spinal stenosis in cervical region Spinal stenosis in cervical region [facility] Diagnosis Pseudoarthrosis of cervical spine, subsequent encounter- Primary Radiculopathy, cervical region Brachial neuritis or radiculitis nos [facility]* Diagnosis Smoker- Primary Tobacco use disorder Encounter for smoking cessation counseling Counseling on substance use and abuse [facility] Diagnosis Pseudoarthrosis of cervical spine, subsequent encounter- Primary Radiculopathy, cervical region Brachial neuritis or radiculitis nos Pre-op testing Preoperative examination, unspecified Impaired glucose tolerance test Tobacco use disorder [facility]* Diagnosis Pseudoarthrosis of cervical spine, subsequent encounter- Primary Radiculopathy, cervical region Brachial neuritis or radiculitis nos Pseudoarthrosis of cervical spine, subsequent encounter Radiculopathy, cervical region Brachial neuritis or radiculitis nos [facility]* Diagnosis Pre-op evaluation- Primary Preoperative examination, unspecified LVH (left ventricular hypertrophy) Cardiomegaly Hypertension, essential Unspecified essential hypertension Former smoker Personal history of tobacco use, presenting hazards to health Morbid obesity (HCC) Morbid obesity JOSELITO (obstructive sleep apnea) Obstructive sleep apnea (adult) (pediatric) Abnormal echocardiogram Nonspecific (abnormal) findings on radiological and other examination of other intrathoracic organs Pseudoarthrosis of cervical spine, subsequent encounter Radiculopathy, cervical region Brachial neuritis or radiculitis nos * Assessment & Plan Note - Claus Hinton PA-C - 02/16/2024 2:26 PM EDT Associated Problem(s): Abnormal echocardiogram -Reviewed echo from 10/13/22 Apical scaring noted on the myocardial strain pattern. Cannot completely exclude amyloid. The global longitudinal strain is severely abnormal. -Patient follows OP with highway engineering teacher Dr. Dunn of [facility], OV with physician on 12/17/22 We will consider obtaining a technetium PYP scan to exclude amyloid. I would recommend that we screen him for cardiac amyloid. -Most recent OV with Rachel hCinchilla PA-C on 06/15/23, does not appear that patient was yet worked up for amyloid. Called cardiology office, spoke with staff and no imaging found. -Will send optimization request to Dr. Dunn's office. * Assessment & Plan Note - Claus Hinton PA-C - 02/16/2024 1:08 PM EDT Associated Problem(s): JOSELITO (obstructive sleep apnea) -Patient denies, resolved with weight loss, does not use CPAP * Assessment & Plan Note - Claus Hinton PA-C - 02/16/2024 1:08 PM EDT Associated Problem(s): Morbid obesity (HCC) -Body mass index is 40.63 kg/m . * Assessment & Plan Note - Claus Hinton PA-C - 02/16/2024 1:06 PM EDT Associated Problem(s): Former smoker -Recently quit smoking 01/14/24 -Smoked 1/2 PPD for 21 years * Assessment & Plan Note - Claus Hinton PA-C - 02/16/2024 1:06 PM EDT Associated Problem(s): Hypertension, essential -Managed on amlodipine, lisinopril, hctz -BP today 145/78 -Denies cardiac symptoms -EKG pending * Assessment & Plan Note - Claus Hinton PA-C - 02/16/2024 1:05 PM EDT Associated Problem(s): LVH (left ventricular hypertrophy) -Per echo 10/13/22 severe concentric LVH Stage 1 diastolic dysfunction -Patient with >4 METS, denies cardiac symptoms -EKG pending [facility] Diagnosis Well adult exam- Primary Routine general medical examination at a health care facility Pre-op examination Preoperative examination, unspecified Spinal stenosis of cervical region Spinal stenosis in cervical region Hypertension, essential Unspecified essential hypertension Mixed hyperlipidemia Agoraphobia Agoraphobia without mention of panic attacks Situational anxiety Other anxiety states Metabolic dysfunction-associated steatohepatitis (MASH) LVH (left ventricular hypertrophy) Cardiomegaly Morbid obesity (HCC) Morbid obesity Screening for prostate cancer Special screening for malignant neoplasm of prostate Hypercalcemia Elevated hemoglobin A1c Other abnormal blood chemistry ED (erectile dysfunction) of organic origin Impotence of organic origin Pseudoarthrosis of cervical spine, subsequent encounter Radiculopathy, cervical region Brachial neuritis or radiculitis nos [facility] Diagnosis Pseudoarthrosis of cervical spine, subsequent encounter- Primary Pseudoarthrosis of cervical spine, subsequent encounter Radiculopathy, cervical region Brachial neuritis or radiculitis nos [facility]* Diagnosis Mixed hyperlipidemia- Primary Metabolic dysfunction-associated steatohepatitis (MASH) Hypertension, essential Unspecified essential hypertension Hypercalcemia Pseudoarthrosis of cervical spine, subsequent encounter Radiculopathy, cervical region Brachial neuritis or radiculitis nos [facility]* Diagnosis Radiculopathy, cervical region- Primary Brachial neuritis or radiculitis nos Cervical vertebral fusion Other unspecified back disorder [facility] Diagnosis Pre-op evaluation- Primary Preoperative examination, unspecified Hypertension, essential Unspecified essential hypertension Mixed hyperlipidemia Smoker Tobacco use disorder JOSELITO (obstructive sleep apnea) Obstructive sleep apnea (adult) (pediatric) LVH (left ventricular hypertrophy) Cardiomegaly Obesity, Class II, BMI 35-39.9 Obesity, unspecified ABDULAZIZ (generalized anxiety disorder) Generalized anxiety disorder Fatty liver Other chronic nonalcoholic liver disease Pre-op evaluation- Primary Preoperative examination, unspecified LVH (left ventricular hypertrophy) Cardiomegaly Hypertension, essential Unspecified essential hypertension Former smoker Personal history of tobacco use, presenting hazards to health Morbid obesity (HCC) Morbid obesity JOSELITO (obstructive sleep apnea) Obstructive sleep apnea (adult) (pediatric) Abnormal echocardiogram Nonspecific (abnormal) findings on radiological and other examination of other intrathoracic organs Radiculopathy, cervical region- Primary Brachial neuritis or radiculitis nos documented in this encounter [facility] note* Diagnosis Pre-op evaluation- Primary Preoperative examination, unspecified Hypertension, essential Unspecified essential hypertension Mixed hyperlipidemia Smoker Tobacco use disorder JOSELITO (obstructive sleep apnea) Obstructive sleep apnea (adult) (pediatric) LVH (left ventricular hypertrophy) Cardiomegaly Obesity, Class II, BMI 35-39.9 Obesity, unspecified ABDULAZIZ (generalized anxiety disorder) Generalized anxiety disorder Fatty liver Other chronic nonalcoholic liver disease Pre-op evaluation- Primary Preoperative examination, unspecified LVH (left ventricular hypertrophy) Cardiomegaly Hypertension, essential Unspecified essential hypertension Former smoker Personal history of tobacco use, presenting hazards to health Morbid obesity (HCC) Morbid obesity JOSELITO (obstructive sleep apnea) Obstructive sleep apnea (adult) (pediatric) Abnormal echocardiogram Nonspecific (abnormal) findings on radiological and other examination of other intrathoracic organs SOB (shortness of breath)- Primary Shortness of breath Bilateral leg edema Edema Hypertension, essential Unspecified essential hypertension SOB (shortness of breath) Shortness of breath Bilateral leg edema Edema documented in this encounter [facility] note* Diagnosis Pre-op evaluation- Primary Preoperative examination, unspecified Hypertension, essential Unspecified essential hypertension Mixed hyperlipidemia Smoker Tobacco use disorder JOSELITO (obstructive sleep apnea) Obstructive sleep apnea (adult) (pediatric) LVH (left ventricular hypertrophy) Cardiomegaly Obesity, Class II, BMI 35-39.9 Obesity, unspecified ABDULAZIZ (generalized anxiety disorder) Generalized anxiety disorder Fatty liver Other chronic nonalcoholic liver disease Pre-op evaluation- Primary Preoperative examination, unspecified LVH (left ventricular hypertrophy) Cardiomegaly Hypertension, essential Unspecified essential hypertension Former smoker Personal history of tobacco use, presenting hazards to health Morbid obesity (HCC) Morbid obesity JOSELITO (obstructive sleep apnea) Obstructive sleep apnea (adult) (pediatric) Abnormal echocardiogram Nonspecific (abnormal) findings on radiological and other examination of other intrathoracic organs SOB (shortness of breath) Shortness of breath Bilateral leg edema Edema documented in this encounter [facility] note* Diagnosis Pre-op evaluation- Primary Preoperative examination, unspecified Hypertension, essential Unspecified essential hypertension Mixed hyperlipidemia Smoker Tobacco use disorder JOSELITO (obstructive sleep apnea) Obstructive sleep apnea (adult) (pediatric) LVH (left ventricular hypertrophy) Cardiomegaly Obesity, Class II, BMI 35-39.9 Obesity, unspecified ABDULAZIZ (generalized anxiety disorder) Generalized anxiety disorder Fatty liver Other chronic nonalcoholic liver disease Left leg pain Pain in limb Pre-op evaluation- Primary Preoperative examination, unspecified LVH (left ventricular hypertrophy) Cardiomegaly Hypertension, essential Unspecified essential hypertension Former smoker Personal history of tobacco use, presenting hazards to health Morbid obesity (HCC) Morbid obesity JOSELITO (obstructive sleep apnea) Obstructive sleep apnea (adult) (pediatric) Abnormal echocardiogram Nonspecific (abnormal) findings on radiological and other examination of other intrathoracic organs documented in this encounter [facility] note* Diagnosis Acute left-sided low back pain with left-sided sciatica Pre-op evaluation- Primary Preoperative examination, unspecified Hypertension, essential Unspecified essential hypertension Mixed hyperlipidemia Smoker Tobacco use disorder JOSELITO (obstructive sleep apnea) Obstructive sleep apnea (adult) (pediatric) LVH (left ventricular hypertrophy) Cardiomegaly Obesity, Class II, BMI 35-39.9 Obesity, unspecified ABDULAZIZ (generalized anxiety disorder) Generalized anxiety disorder Fatty liver Other chronic nonalcoholic liver disease Pre-op evaluation- Primary Preoperative examination, unspecified LVH (left ventricular hypertrophy) Cardiomegaly Hypertension, essential Unspecified essential hypertension Former smoker Personal history of tobacco use, presenting hazards to health Morbid obesity (HCC) Morbid obesity JOSELITO (obstructive sleep apnea) Obstructive sleep apnea (adult) (pediatric) Abnormal echocardiogram Nonspecific (abnormal) findings on radiological and other examination of other intrathoracic organs documented in this encounter [facility] note* Diagnosis Cervical radiculopathy Brachial neuritis or radiculitis nos Acute pain of right shoulder Pre-op evaluation- Primary Preoperative examination, unspecified Hypertension, essential Unspecified essential hypertension Mixed hyperlipidemia Smoker Tobacco use disorder JOSELITO (obstructive sleep apnea) Obstructive sleep apnea (adult) (pediatric) LVH (left ventricular hypertrophy) Cardiomegaly Obesity, Class II, BMI 35-39.9 Obesity, unspecified ABDULAZIZ (generalized anxiety disorder) Generalized anxiety disorder Fatty liver Other chronic nonalcoholic liver disease Pre-op evaluation- Primary Preoperative examination, unspecified LVH (left ventricular hypertrophy) Cardiomegaly Hypertension, essential Unspecified essential hypertension Former smoker Personal history of tobacco use, presenting hazards to health Morbid obesity (HCC) Morbid obesity JOSELITO (obstructive sleep apnea) Obstructive sleep apnea (adult) (pediatric) Abnormal echocardiogram Nonspecific (abnormal) findings on radiological and other examination of other intrathoracic organs [facility] Diagnosis Pre-op evaluation- Primary Preoperative examination, unspecified Hypertension, essential Unspecified essential hypertension Mixed hyperlipidemia Smoker Tobacco use disorder JOSELITO (obstructive sleep apnea) Obstructive sleep apnea (adult) (pediatric) LVH (left ventricular hypertrophy) Cardiomegaly Obesity, Class II, BMI 35-39.9 Obesity, unspecified ABDULAZIZ (generalized anxiety disorder) Generalized anxiety disorder Fatty liver Other chronic nonalcoholic liver disease Pre-op evaluation- Primary Preoperative examination, unspecified LVH (left ventricular hypertrophy) Cardiomegaly Hypertension, essential Unspecified essential hypertension Former smoker Personal history of tobacco use, presenting hazards to health Morbid obesity (HCC) Morbid obesity JOSELITO (obstructive sleep apnea) Obstructive sleep apnea (adult) (pediatric) Abnormal echocardiogram Nonspecific (abnormal) findings on radiological and other examination of other intrathoracic organs Acute cough- Primary Sore throat Acute pharyngitis Strep throat Streptococcal sore throat Acute cough [facility]* Diagnosis Pre-op evaluation- Primary Preoperative examination, unspecified Hypertension, essential Unspecified essential hypertension Mixed hyperlipidemia Smoker Tobacco use disorder JOSELITO (obstructive sleep apnea) Obstructive sleep apnea (adult) (pediatric) LVH (left ventricular hypertrophy) Cardiomegaly Obesity, Class II, BMI 35-39.9 Obesity, unspecified ABDULAZIZ (generalized anxiety disorder) Generalized anxiety disorder Fatty liver Other chronic nonalcoholic liver disease Pre-op evaluation- Primary Preoperative examination, unspecified LVH (left ventricular hypertrophy) Cardiomegaly Hypertension, essential Unspecified essential hypertension Former smoker Personal history of tobacco use, presenting hazards to health Morbid obesity (HCC) Morbid obesity JOSELITO (obstructive sleep apnea) Obstructive sleep apnea (adult) (pediatric) Abnormal echocardiogram Nonspecific (abnormal) findings on radiological and other examination of other intrathoracic organs Acute cough documented in this encounter [facility]* Diagnosis Pre-op evaluation- Primary Preoperative examination, unspecified Hypertension, essential Unspecified essential hypertension Mixed hyperlipidemia Smoker Tobacco use disorder JOSELITO (obstructive sleep apnea) Obstructive sleep apnea (adult) (pediatric) LVH (left ventricular hypertrophy) Cardiomegaly Obesity, Class II, BMI 35-39.9 Obesity, unspecified ABDULAZIZ (generalized anxiety disorder) Generalized anxiety disorder Fatty liver Other chronic nonalcoholic liver disease Pre-op evaluation- Primary Preoperative examination, unspecified LVH (left ventricular hypertrophy) Cardiomegaly Hypertension, essential Unspecified essential hypertension Former smoker Personal history of tobacco use, presenting hazards to health Morbid obesity (HCC) Morbid obesity JOSELITO (obstructive sleep apnea) Obstructive sleep apnea (adult) (pediatric) Abnormal echocardiogram Nonspecific (abnormal) findings on radiological and other examination of other intrathoracic organs Bilateral leg edema Edema documented in this encounter [facility]* Diagnosis Pre-op evaluation- Primary Preoperative examination, unspecified Hypertension, essential Unspecified essential hypertension Mixed hyperlipidemia Smoker Tobacco use disorder JOSELITO (obstructive sleep apnea) Obstructive sleep apnea (adult) (pediatric) LVH (left ventricular hypertrophy) Cardiomegaly Obesity, Class II, BMI 35-39.9 Obesity, unspecified ABDULAZIZ (generalized anxiety disorder) Generalized anxiety disorder Fatty liver Other chronic nonalcoholic liver disease Pre-op evaluation- Primary Preoperative examination, unspecified LVH (left ventricular hypertrophy) Cardiomegaly Hypertension, essential Unspecified essential hypertension Former smoker Personal history of tobacco use, presenting hazards to health Morbid obesity (HCC) Morbid obesity JOSELITO (obstructive sleep apnea) Obstructive sleep apnea (adult) (pediatric) Abnormal echocardiogram Nonspecific (abnormal) findings on radiological and other examination of other intrathoracic organs Diastasis recti- Primary Diastasis of muscle Acute pain of left shoulder Left shoulder tendonitis Elevated hemoglobin A1c Other abnormal blood chemistry Hypertension, essential Unspecified essential hypertension Mixed hyperlipidemia documented in this encounter [facility] note* Diagnosis Pre-op evaluation- Primary Preoperative examination, unspecified Hypertension, essential Unspecified essential hypertension Mixed hyperlipidemia Smoker Tobacco use disorder JOSELITO (obstructive sleep apnea) Obstructive sleep apnea (adult) (pediatric) LVH (left ventricular hypertrophy) Cardiomegaly Obesity, Class II, BMI 35-39.9 Obesity, unspecified ABDULAZIZ (generalized anxiety disorder) Generalized anxiety disorder Fatty liver Other chronic nonalcoholic liver disease Pre-op evaluation- Primary Preoperative examination, unspecified LVH (left ventricular hypertrophy) Cardiomegaly Hypertension, essential Unspecified essential hypertension Former smoker Personal history of tobacco use, presenting hazards to health Morbid obesity (HCC) Morbid obesity JOSELITO (obstructive sleep apnea) Obstructive sleep apnea (adult) (pediatric) Abnormal echocardiogram Nonspecific (abnormal) findings on radiological and other examination of other intrathoracic organs Hypertension, essential- Primary Unspecified essential hypertension Mixed hyperlipidemia Elevated hemoglobin A1c Other abnormal blood chemistry Situational anxiety Other anxiety states Morbid obesity (HCC) Morbid obesity Metabolic dysfunction-associated steatohepatitis (MASH) Smoker Tobacco use disorder Need for vaccination Need for prophylactic vaccination and inoculation against unspecified single disease Obesity, Class II, BMI 35-39.9 Obesity, unspecified Screening for prostate cancer Special screening for malignant neoplasm of prostate [facility] Author Dr. Salazar [facility] October 07, 2022 4:07pm Note Date/Time October 06, 2022 3 :23pm [facility] Medical Records Department [address] [place] [address] H&P Exam - Hospitalist 10/06/22 1513 MR#: [id number] Acct: [id number] Name: JASON MOORE Jr. Rep #:[id number] : 1970 51 From: Ludy Salazar MD PCP: Dr. Colton Rosario MD Status:ADM IN Location: [place] [id number] HPI - General General Date of Admission: 10/06/22 Date of Service: 10/06/22 HPI Narrative JASON MOORE, is a 51 M with a PMH as outlined who presents via the ED on 10/06/2022 after being referred from his PCPs office with markedly elevated blood pressure. Patient has a history of high blood pressure but has not been compliant with his medication for at least 6 months. He states he was in his usual state of health and went to her PCP appointment because his made him go. When he went that his blood pressure was checked and his blood pressure wasmarkedly elevated with a systolic over 200. He was therefore referred to the ED. He denied any headaches, blurred vision, chest pain, palpitations, dizziness, nausea vomiting or diarrhea. Review of systems otherwise negative. Vitals in the ED with blood pressure of 194/123, pulse rate of 75 respirate rateof 18 and he was on room air. CBC showed hemoglobin of 17.8 but was otherwise unremarkable. Chemistry was significant for potassium of 3.4 and creatinine of 1.36. Initial troponin was 49. Has been admitted to be managed for hypertensive urgency due to noncompliance. 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 current occupational exposures/hazards: No Smoking Status: Current every day smoker tobacco type: cigarettes alcohol intake: current alcohol intake frequency: 3 or more drinks per day details: 3-4 beers and a few shots of whiskey per day on average substance use type: does not use ROS Constitutional Constitutional: Denies anorexia, chills, fatigue, fever(s), malaise or weakness ENT HEENT: Denies dysphagia or headache(s) Cardiovascular Cardiovascular: Denies chest pain, dyspnea on exertion, edema, lightheadedness, orthopnea, palpitations, rapid heart rate or syncope Respiratory/Chest Respiratory/Chest: Denies cough, dyspnea, shortness of breath at rest or shortness of breath with exertion Gastrointestinal Gastrointestinal: Denies abdominal pain, constipation, nausea or vomiting Genitourinary Genitourinary: Denies burning urination or dysuria Musculoskeletal Musculoskeletal: Denies arthralgias Neurologic Neurologic: Denies confusion, dizziness, focal weakness, headache(s), seizures or syncope Psychiatric Psychiatric: Denies anxiety or depression Endocrine Endocrinology: Denies change in body appearance Vital Signs Vital Signs Vital Signs: 10/06/22 08:08 10/06/22 08:42 10/06/22 09:22 Temperature 97.6 F L Temperature Source Temporal Pulse Rate 95 88 Respiratory Rate 14 Respiratory Pattern Normal Blood Pressure 186/125 H 199/130 H Blood Pressure Mean 145 153 Pulse Ox 98 Oxygen Delivery Method Room Air 10/06/22 09:57 10/06/22 11:13 10/06/22 13:00 Temperature 97.6 F L Temperature Source Temporal Pulse Rate 74 88 75 Respiratory Rate 17 16 18 Respiratory Pattern Blood Pressure 206/124 H 188/110 H 194/123 H Blood Pressure Mean 151 136 146 Pulse Ox 96 Oxygen Delivery Method Room Air Room Air Weight Weight: 254 lb Body Mass Index (BMI) 37.5 Physical Exam Const alert, oriented x3 and no apparent distress General Appearance: cooperative HEENT normocephalic, head/scalp atraumatic, hearing grossly normal bilaterally and moist oral mucous membranes Mouth: oral and palatal mucosa normal Eyes PERRL and EOMs intact bilaterally Neck no lymphadenopathy and supple Resp normal respiratory effort, no retractions, no use of accessory muscles and clearto auscultation bilaterally Cardio regular rate, regular rhythm, S1 normal heart sound and S2 normal heart sound GI normal to inspection, nondistended, normoactive bowel sounds, soft to palpation,non-tender and non-distended Extremity normal to inspection, full ROM and no clubbing, cyanosis or edema Neuro oriented x3, CN's II-XII intact bilaterally, moves all extremities and no focal motor deficits Sensorium / Orientation: awake and alert Motor Exam: strength 5/5 throughout Psych affect normal Results Lab / Micro Data Result Diagrams: 10/07/22 06:35 10/07/22 06:35 Labs: Laboratory Results - last 24 hr 10/06/22 08:30: WBC 6.9, RBC 5.27, Hgb 17.8 H, Hct 50.5, MCV 95.8 H, MCH 33.8 H,MCHC 35.2, RDW Std Deviation 41.6, RDW Coeff of María 11.9, Plt Count 212, MPV 11.0, Immature Gran % (Auto) 0.400, Neut % (Auto) 63.7, Lymph % (Auto) 28.2, Banner % (Auto) 6.6, Eos % (Auto) 0.4, Baso % (Auto) 0.7, Absolute Neuts (auto) 4.4, Absolute Lymphs (auto) 1.95, Nucleated RBC % 0 10/06/22 08:30: Sodium 138, Potassium 3.4 L, Chloride 106, Carbon Dioxide 25.0, Anion Gap 7, BUN 15, Creatinine 1.36 H, Estim Creat Clear Calc 65.70, Est GFR (MDRD) Af Amer 71, Est GFR (MDRD) Non-Af 59 L, BUN/Creatinine Ratio 11.0, Glucose 117 H, Calcium 9.6, Troponin I High Sens 49 Assessment & Plan Assessment/Plan (1) Hypertensive urgency: PLAN: Plan #Hypertensive urgency due to noncompliance * admit to PCU * resume patient's BP meds- lisinopril, HCTZ and metoprolol * IV hydralazine prn * 2D echo ordered * EKG showed some t wave inversions in the lateral leads not present in previous EKGs * cycle troponins * #Hypokalemia: K is 3.4. Will replace and trend #CKD IIIa: Cr is 1.36, which is around his baseline from 2018. Will monitor #Nicotine dependence: smokes at least half a pack daily. counseled to quit. Nicotine patch 21mg daily. DVT prophylaxis: lovenox COde status: full code * Patient counseled extensively about different types of CODE STATUS including full code, DNR CCA and DNR CCA. Patient elects to be full code. * Total ajdh-oo-ayld time 17 minutes. Charges/Coding Visit Charges Inpatient E&M: 70640 Init Hosp L3 Procedures Hospitalists Procedures: 97641 Advncd Care Plan 30 Min 10/07/22 1607 <Electronically signed by Ludy Salazar MD> Cosigner Signature (if applicable): CC: Dr. Colton Rosario MD; Dr. Ludy Salazar MD~ Signed [facility] Work Phone: [facility] Work Phone: Progress note Author Dr. Salazar [facility] October 07, 2022 4:07pm Note Date/Time October 07, 2022 1 0:52am [facility] Medical Records Department [address] [place] [address] Progress Note - Hospitalist 10/07/22 1050 MR#: [id number] Acct: [id number] Name: JASON MOORE JrHarmeet Rep #:[id number] : 1970 51 From: Ludy Salazar MD PCP: Dr. Colton Rosario MD Status:ADM IN Location: [place] [address] Reason for Visit Reason for Visit: Patient seen and examined. He had no active complaints and had an uneventful night. BP still not very well controlled. REview of systems is otherwise negative. Objective Data Objective Data Vital Signs: Vital Signs Temp Pulse Resp BP Pulse Ox O2 Del Method 97.9 F 93 16 158/90 H 98 Room Air 10/07/22 09:49 10/07/22 09:49 10/07/22 09:49 10/07/22 09:49 10/07/22 09:49 10/07/22 09:49 Oxygen Delivery Method Room Air Weight: 259 lb 0.69 oz Body Mass Index (BMI) 38.2 Intake & Output: Intake and Output for Last 24 Hours 10/05/22 10/06/22 10/07/22 23:59 23:59 23:59 Intake Total 1490.0 / 1490.0 Balance 1490.0 / 1490.0 Lab / Micro Data Result Diagrams: 10/07/22 06:35 10/07/22 06:35 Labs: Laboratory Results - last 24 hr 10/06/22 16:56: Troponin I High Sens 29 10/06/22 19:30: Troponin I High Sens 27 10/06/22 22:45: Troponin I High Sens 27 10/07/22 06:35: WBC 6.1, RBC 5.05, Hgb 16.8 H, Hct 49.0, MCV 97.0 H, MCH 33.3 H,MCHC 34.3, RDW Std Deviation 42.4, RDW Coeff of María 11.9, Plt Count 200, MPV 11.2, Immature Gran % (Auto) 0.700, Neut % (Auto) 64.5, Lymph % (Auto) 27.9, Banner % (Auto) 5.6, Eos % (Auto) 0.8, Baso % (Auto) 0.5, Absolute Neuts (auto) 3.9, Absolute Lymphs (auto) 1.70, Nucleated RBC % 0 10/07/22 06:35: Sodium 138, Potassium 3.5, Chloride 108 H, Carbon Dioxide 23.0, Anion Gap 7, BUN 8, Creatinine 1.05, Estim Creat Clear Calc 85.10, Est GFR (MDRD) Af Amer 96, Est GFR (MDRD) Non-Af 80, BUN/Creatinine Ratio 7.6 L, [id number] H, Calcium 9.4 Physical Exam Const alert, oriented x3 and no apparent distress General Appearance: cooperative HEENT normocephalic, head/scalp atraumatic, hearing grossly normal bilaterally and moist oral mucous membranes Head and Scalp: normocephalic Mouth: oral and palatal mucosa normal Eyes PERRL, EOMs intact bilaterally and conjunctivae normal Neck no lymphadenopathy and supple Resp normal respiratory effort, no retractions, no use of accessory muscles and clearto auscultation bilaterally Cardio regular rate, regular rhythm, S1 normal heart sound and S2 normal heart sound GI normal to inspection, nondistended, normoactive bowel sounds, soft to palpation,non-tender and non-distended Extremity normal to inspection, full ROM and no clubbing, cyanosis or edema Neuro oriented x3, CN's II-XII intact bilaterally, moves all extremities and no focal motor deficits Sensorium / Orientation: awake and alert Motor Exam: strength 5/5 throughout Psych affect normal Assessment & Plan Assessment/Plan (1) Hypertensive urgency: PLAN: Plan #Hypertensive urgency due to noncompliance * BP still remains poorly controlled * on amlodipine 10mg daily; started on lisinopril 40mg daily and HCTZ 25mg daily. * 2D echo ordered and pending * IV hydralazine prn * troponins x 3 were negative * * #Hypokalemia: resolved. potassiuim is 3.5 today. #CKD IIIa: Cr has trended down to 1.05. He may therefore have had TREVON rather than CKD III though his baseline has been ~ 1.3 #Nicotine dependence: smokes at least half a pack daily. counseled to quit. Nicotine patch 21mg daily. DVT prophylaxis; lovenox Charges/Coding Visit Charges Inpatient E&M: 80147 Subs Hosp L2 10/07/22 1607 <Electronically signed by Ludy Salazar MD> Cosigner Signature (if applicable): CC: ~ Signed [facility] Work Phone: Reason for referral (narrative)* Diagnostic Procedure Only (Urgent) - Closed Specialty Diagnoses / Procedures Referred By Contac t Referred To Contact XR IMAGING Diagnoses Acute left-sided low back pain with left-sided sciatica Procedures XR LUMBAR GENERAL 3V AP/LAT/L5-S1 RADEX SPINE LUMBOSACRAL 2/3 VIEWS Melissa Carrasquillo, PANunuC [address] [place] [address] Xr Imaging Referral ID Status Reason Start Date Expiration Date V isits Requested Visits Authorized [id number] Closed Auto-Generate d Referral 02/26/2022 03/28/2023 1 1 [facility] for referral (narrative)* Outpatient Procedure (Routine) - Pending Review Specialty Diagnoses / Procedures Referred By Contac t Referred To Contact [facility] Diagnoses Screening for colon cancer Procedures COLONOSCOPY SCREENING COLONOSCOPY FLX DX W/COLLJ SPEC WHEN PFRMKota Rhoades APRN.CNP, DNP [address] [place] [address] [facility] [address] [place] [address] Referral ID Status Reason Start Date Expiration Date Visits Requested Visits Authorized [id number] Pending Review Auto-Generat ed Referral 07/08/2022 07/08/2023 1 1 [facility] for referral (narrative)* Outpatient Procedure (Routine) - Pending Review Specialty Diagnoses / Procedures Referred By Contac t Referred To Contact [facility] Diagnoses Hypertension, essential Procedures ECG COMPLETE ECG ROUTINE ECG W/LEAST 12 LDS W/I&R Fifi Pierre PA-C [address] [place] [address] [facility] [address] [address] Referral ID Status Reason Start Date Expiration Date Visits Requested Visits Authorized [id number] Pending Review Auto-Generat ed Referral 10/06/2022 10/06/2023 1 1 * Consult, Test, Treat (Routine) - Authorized Specialty Diagnoses / Procedures Referred By Contac t Referred To Contact General Surgery Diagnoses Screening for colon cancer Family history of colon cancer Procedures CONSULT TO GENERAL SURGERY OFFICE/OUTPATIENT NEW HIGH MDM 60-74 MINUTES Fifi Pierre PA-C [address] [place] [address] Referral ID Status Reason Start Date Expiration Date Visits Requested Visits Authorized [id number] Authorized PCP Requested Referral 10/06/2022 10/06/2023 1 1 [facility] for referral (narrative)* Outpatient Procedure (Routine) - Closed Specialty Diagnoses / Procedures Referred By Contac t Referred To Contact [facility] Diagnoses Family history of colon cancer Procedures COLONOSCOPY SCREENING COLONOSCOPY SCREENING COLONOSCOPY FLX DX W/COLLJ SPEC WHEN PFRMD Mainor Pandey PA-C [address] [place] [address] [facility] [address] [place] [address] Referral ID Status Reason Start Date Expiration Date V isits Requested Visits Authorized [id number] Closed Auto-Generate d Referral 11/11/2022 11/12/2023 1 1 [facility] for referral (narrative)* Diagnostic Procedure Only (Routine) - Closed Specialty Diagnoses / Procedures Referred By Contac t Referred To Contact CT IMAGING Diagnoses Spinal stenosis of cervical region Procedures CT CERVICAL SPINE WO IVCON CT CERVICAL SPINE W/O CONTRAST MATERIAL Pelon Greenfield MD [address] [place] [address] [place] [address] Referral ID Status Reason Start Date Expiration Date V isits Requested Visits Authorized [id number] Closed Auto-Generate d Referral 09/17/2023 03/15/2024 1 1 [facility] for referral (narrative)* Diagnostic Procedure Only (Routine) - Closed Specialty Diagnoses / Procedures Referred By Contac t Referred To Contact MR IMAGING Diagnoses Radiculopathy of lumbar region Procedures MRI THORACIC SPINE WO IVCON MRI SPINAL CANAL THORACIC W/O CONTRAST MATRL Pelon Greenfield MD [address] [place] [address] [place] [address] Referral ID Status Reason Start Date Expiration Date V isits Requested Visits Authorized [id number] Closed Auto-Generate d Referral 09/17/2023 03/15/2024 1 1 * MRI/CT (Routine) - Denied Specialty Diagnoses / Procedures Referred By Contac t Referred To Contact MR IMAGING Diagnoses DDD (degenerative disc disease), lumbar Spinal stenosis of cervical region Hand numbness Procedures MRI CERVICAL SPINE WO IVCON MRI SPINAL CANAL CERVICAL W/O CONTRAST MATRL Luiza Fonseca MD [address] [place] [address] Mr Imaging [place] [address] Referral ID Status Reason Start Date Expiration Date V isits Requested Visits Authorized [id number] Denied Auto-Generat ed Referral Clearance Not Met - Admin/Chairm an/Director Advise to Postpone/Res chedule or Not Proceed 05/05/2023 06/03/2024 1 0 [facility] for referral (narrative)* Outpatient Procedure (Routine) - Closed Specialty Diagnoses / Procedures Referred By Contac t Referred To Contact [facility] [place] Diagnoses Pre-op evaluation Procedures ECG COMPLETE ECG ROUTINE ECG W/LEAST 12 LDS W/I&R Claus Hinton PA-C [address] [place] [address] [facility] [place] [address] [place] [address] Referral ID Status Reason Start Date Expiration Date V isits Requested Visits Authorized [id number] Closed Auto-Generate d Referral 02/16/2024 02/15/2025 1 1 [facility] for referral (narrative)* Outpatient Procedure (Routine) - New Request Specialty Diagnoses / Procedures Referred By Contac t Referred To Contact [facility] [place] Diagnoses SOB (shortness of breath) Bilateral leg edema Procedures ECG COMPLETE ECG ROUTINE ECG W/LEAST 12 LDS W/I&R Ashley Pugh APRN.[facility] [address] [place] [address] [facility] [address] [place] [address] Referral ID Status Reason Start Date Expiration Date Visits Requested Visits Authorized [id number] New Request Auto-Generat ed Referral 04/20/2024 04/20/2025 1 1 [facility] for referral (narrative)* Diagnostic Procedure Only (Urgent) - Closed Specialty Diagnoses / Procedures Referred By Contac t Referred To Contact XR IMAGING Diagnoses Left leg pain Procedures XR LUMBAR MOTION 4V AP/LAT/ FLEX/EXT RADEX SPINE LUMBOSACRAL MINIMUM 4 VIEWS Ashley Pugh APRN.CNP [address] [place] [address] [place] [address] Referral ID Status Reason Start Date Expiration Date V isits Requested Visits Authorized [id number] Closed Auto-Generate d Referral 04/08/2023 05/07/2024 1 1 [facility] for referral (narrative)* Diagnostic Procedure Only (Urgent) - Closed Specialty Diagnoses / Procedures Referred By Contac t Referred To Contact XR IMAGING Diagnoses Acute left-sided low back pain with left-sided sciatica Procedures XR LUMBAR GENERAL 3V AP/LAT/L5-S1 RADEX SPINE LUMBOSACRAL 2/3 VIEWS Melissa Carrasquillo PA-C [address] [place] [address] [place] [address] Referral ID Status Reason Start Date Expiration Date V isits Requested Visits Authorized [id number] Closed Auto-Generate d Referral 02/26/2022 03/28/2023 1 1 [facility] for visit Narrative* Outpatient Procedure (Routine) - Closed Specialty Diagnoses / Procedures Referred By Contac t Referred To Contact [facility] Diagnoses Family history of colon cancer Procedures COLONOSCOPY SCREENING COLONOSCOPY SCREENING COLONOSCOPY FLX DX W/COLLJ SPEC WHEN PFRMD Mainor Pandey PA-C [address] [facility] [place] [address] [facility] [address] [place] [address] Referral ID Status Reason Start Date Expiration Date V isits Requested Visits Authorized [id number] Closed Auto-Generate d Referral 11/11/2022 11/12/2023 1 1 [facility] for visit Narrative* Diagnostic Procedure Only (Routine) - Closed Specialty Diagnoses / Procedures Referred By Contac t Referred To Contact MR IMAGING Diagnoses Radiculopathy of lumbar region Procedures MRI THORACIC SPINE WO IVCON MRI SPINAL CANAL THORACIC W/O CONTRAST MATRL Pelon Greenfield MD [address] [place] [id number] [place] [address] Referral ID Status Reason Start Date Expiration Date V isits Requested Visits Authorized [id number] Closed Auto-Generate d Referral 09/17/2023 03/15/2024 1 1 [facility] for visit Narrative* Diagnostic Procedure Only (Urgent) - Closed Specialty Diagnoses / Procedures Referred By Contac t Referred To Contact XR IMAGING Diagnoses Left leg pain Procedures XR LUMBAR MOTION 4V AP/LAT/ FLEX/EXT RADEX SPINE LUMBOSACRAL MINIMUM 4 VIEWS Ashley Pugh APRN.SONOGRAPHY TECHNICIAN [address] [place] [address] [place] [address] Referral ID Status Reason Start Date Expiration Date V isits Requested Visits Authorized [id number] Closed Auto-Generate d Referral 04/08/2023 05/07/2024 1 1 [facility] for visit Narrative* Diagnostic Procedure Only (Urgent) - Closed Specialty Diagnoses / Procedures Referred By Contac t Referred To Contact XR IMAGING Diagnoses Acute left-sided low back pain with left-sided sciatica Procedures XR LUMBAR GENERAL 3V AP/LAT/L5-S1 RADEX SPINE LUMBOSACRAL 2/3 VIEWS Melissa Carrasquillo PA-C [address] [place] [address] [place] [address] Referral ID Status Reason Start Date Expiration Date V isits Requested Visits Authorized [id number] Closed Auto-Generate d Referral 02/26/2022 03/28/2023 1 1 [facility] Summary Purpose Family History Relationship Condition Age at Onset Recorded Date/T dominik father Malignant neoplasm of prostate Unknown Diabetes mellitus Unknown Advance Directives Documents on File Type Date 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 Advance Directive(s) 06/17/2021 6:12 AM Advance Directive(s) 02/18/2021 10:29 AM Advance Directive Response Recorded Date/ Time Living Will No March 01, 2022 1 0:48am Power of Quality Assurance Lab Technician No March 01, 2022 10:48am Documents on File Type Date 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 Advance Directive(s) 06/17/2021 6:12 AM Advance Directive(s) 02/18/2021 10:29 AM Advance Directive Response Recorded Date/ Time Living Will No March 01, 2022 2 :06pm Power of Quality Assurance Lab Technician No March 01, 2022 2:06pm Advance Directive Response Recorded Date/ Time Living Will No October 06 9:22am Power of Quality Assurance Lab Technician No October 06, 2022 9:22am Advance Directive Response Recorded Date/ Time Living Will No October 06 3:52pm Power of Quality Assurance Lab Technician No October 06, 2022 3:52pm Chief Complaint and Reason for Visit Chief Complaint TREVON/PNEUMONIA Reason for Visit Acute renal failure Diarrhea Hypokalemia Pneumonia Chief Complaint TREVON/PNEUMONIA TREVON/PNEUMONIA TREVON/PNEUMONIA Reason for Visit Abnormal CT scan, ch est Acute renal failure Diarrhea High anion gap metabolic acidosis Hypokalemia Metabolic encephalopathy Transaminitis Chief Complaint HYPERTENSIVE URGENCY Reason for Visit Abnormal ECG Hypertensive urgency Chronic renal insufficiency Chief Complaint HYPERTENSIVE URGENCY HYPERTENSIVE URGENCY HYPERTENSIVE URGENCY HYPERTENSIVE URGENCY Reason for Visit Abnormal ECG Hypertensive urgency Chronic renal insufficiency Health Concerns Infection Onset Date Last Indicated Resolved Time COVID-19 Rule-Out 08/03/2022 08/03/2022 Medications Administered Section Inactive Administered Medications - up to 3 most recent administrations Medication Order MAR Action Action Date Dose Rate Site keTORolac 60 mg injection (Toradol) 60 mg, INTRAMUSCULAR, ONCE, 1 dose, On Wed04/13/23 at 0900, Ketorolac (Toradol) is indicated for the short-term (up to 5 days) management of moderately severe acute pain. Continuation of ketorolac (Toradol) beyond 5 days increases the risk of developing serious adverse events. Please verify the duration of therapy for ketorolac (Toradol)., If ordered PRN for pain, patient/guardian may elect to receive this medication for higher pain levels INSTEAD of the opioid, if preferred: Yes Given 04/13/2023 8:49 AM EDT 60 mg Buttocks, Right Reason for Referral Specialty Diagnoses / Procedures Referred By Contac t Referred To Contact Spine Keeler Diagnoses DDD (degenerative disc disease), lumbar Procedures CONSULT TO [facility] OFFICE/OUTPATIENT [facility] 60-74 MINUTES Ashley Pugh, INTRAVENOUS THERAPY NURSE.[facility] [address] [place] [address] Referral ID Status Reason Start Date Expiration Date Visits Requested Visits Authorized [id number] Authorized PCP Requested Referral 04/08/2023 04/07/2024 1 1 Specialty Diagnoses / Procedures Referred By Contac t Referred To Contact [facility] Diagnoses DDD (degenerative disc disease), lumbar Spinal stenosis of cervical region Mass of soft tissue of forearm Hand numbness H/O cervical spine surgery Procedures CONSULT TO PHYSICAL THERAPY PHYSICAL THERAPY [facility] 45 MINS Luiza Fonseca MD [address] [place] [address] [facility] [place] [address] Referral ID Status Reason Start Date Expiration Date Visits Requested Visits Authorized [id number] Authorized Auto-Generat ed Referral 05/05/2023 08/29/2023 50 50 Specialty Diagnoses / Procedures Referred By Contac t Referred To Contact Orthopedics Diagnoses Mass of soft tissue of forearm Hand numbness Procedures CONSULT TO ORTHOPAEDIC SURGERY OFFICE/OUTPATIENT [facility] 60-74 MINUTES Luiza Fonseca MD [address] [place] [address] Referral ID Status Reason Start Date Expiration Date Visits Requested Visits Authorized [id number] Authorized PCP Requested Referral 05/05/2023 05/04/2024 1 1 Specialty Diagnoses / Procedures Referred By Contac t Referred To Contact [facility] Diagnoses DDD (degenerative disc disease), lumbar Spinal stenosis of cervical region Hand numbness H/O cervical spine surgery Procedures EMG(NEURO/NI) NERVE CONDUCTION STUDIES 9-10 STUDIES Luiza Fonseca MD [address] [place] [id number] [address] [place] [address] Referral ID Status Reason Start Date Expiration Date Visits Requested Visits Authorized [id number] Authorized Auto-Generat ed Referral 05/05/2023 05/05/2024 1 1 Specialty Diagnoses / Procedures Referred By Contac t Referred To Contact MR IMAGING Diagnoses DDD (degenerative disc disease), lumbar Spinal stenosis of cervical region Hand numbness Procedures MRI CERVICAL SPINE WO IVCON MRI SPINAL CANAL CERVICAL W/O CONTRAST Liuza Germain MD [address] [place] [id number] Mr Imaging [facility]95 Referral ID Status Reason Start Date Expiration Date Visits Requested Visits Authorized [id number] Pending Review Auto-Generat ed Referral 05/05/2023 06/03/2024 1 1 Specialty Diagnoses / Procedures Referred By Contac t Referred To Contact XR IMAGING Diagnoses H/O cervical spine surgery Procedures XR CERV OTHER 4V AP/LAT/FLX/EXT RADEX SPINE CERVICAL 4 OR 5 VIEWS Luiza Fonseca MD [address] [place] [id number] Xr Imaging [place] [address] Referral ID Status Reason Start Date Expiration Date V isits Requested Visits Authorized [id number] Closed Auto-Generate d Referral 05/05/2023 06/03/2024 1 1 Specialty Diagnoses / Procedures Referred By Contac t Referred To Contact MR IMAGING Diagnoses Spinal stenosis of cervical region Procedures MRI CERVICAL SPINE WO IVCON MRI SPINAL CANAL CERVICAL W/O CONTRAST Luiza Germain MD [address] [facility] [place] [id number] Mr Imaging [facility] Referral ID Status Reason Start Date Expiration Date Visits Requested Visits Authorized [id number] Pending Review Auto-Generat ed Referral 07/17/2024 1 1 Specialty Diagnoses / Procedures Referred By Contac t Referred To Contact Diagnoses Spinal stenosis in cervical region Cervical disc disorder with radiculopathy Procedures CONSULT TO SPINE SURGERY OFFICE/OUTPATIENT [facility] 60-74 MINUTES Luiza Fonseca MD [address] [place] [address] Referral ID Status Reason Start Date Expiration Date Visits Requested Visits Authorized [id number] Authorized PCP Requested Referral 3 07/18/2024 1 1 Specialty Diagnoses / Procedures Referred By Contac t Referred To Contact MR IMAGING Diagnoses Spinal stenosis of lumbar region with neurogenic claudication Procedures MRI LUMBAR SPINE WO IVCON MRI SPINAL CANAL LUMBAR W/O CONTRAST MATERIAL Pelon Greenfield MD [address] [place] [address] Mr Imaging [facility]95 Referral ID Status Reason Start Date Expiration Date V isits Requested Visits Authorized [id number] Closed Auto-Generate d Referral 11/02/2023 04/30/2024 1 1 Specialty Diagnoses / Procedures Referred By Contac t Referred To Contact Diagnoses Pseudoarthrosis of cervical spine, subsequent encounter Radiculopathy, cervical region Procedures REFER TO [facility] PREOPERATIVE OPTIMIZATION OFFICE/OUTPATIENT [facility] 60 MINUTES Leonel Longo PA-C [address] [place] [address] Referral ID Status Reason Start Date Expiration Date Visits Requested Visits Authorized [id number] Authorized PCP Requested Referral 02/16/2024 02/08/2025 1 1 Specialty Diagnoses / Procedures Referred By Contac t Referred To Contact [facility] Diagnoses Acute pain of left shoulder Left shoulder tendonitis Procedures CONSULT TO PHYSICAL THERAPY PHYSICAL THERAPY EVALUATION HIGH COMPLEX 45 MINS Colton Rosario MD [address] [place] [address] [facility] [address] [place] [address] Referral ID Status Reason Start Date Expiration Date Visits Requested Visits Authorized [id number] Pending Review Auto-Generat ed Referral 09/20/2024 09/20/2025 1 1 Specialty Diagnoses / Procedures Referred By Contac t Referred To Contact XR IMAGING Diagnoses Acute pain of left shoulder Left shoulder tendonitis Procedures XR SHOULDER GENERAL 3V OR MORE AP/TRUE AP/OTHER LEFT RADEX SHOULDER COMPLETE MINIMUM 2 VIEWS Colton Rosario MD [address] [place] [address] [place] [address] Referral ID Status Reason Start Date Expiration Date Visits Requested Visits Authorized [id number] New Request Auto-Generat ed Referral 09/20/2024 10/20/2025 1 1 Additional Source Comments (unrecognized sect ion and content) No Status Records FoundNo Status Records FoundNo Status Records FoundNo Status Records FoundNo Status Records Found INFORMATION SOURCE (unrecogn ized section and content) DATE CREATED AUTHOR 02/22/2018 [facility] DATE CREATED AUTHOR AUTHOR'S ORGANIZ ATION 09/01/2021 [facility] DATE CREATED AUTHOR AUTHOR'S ORGANIZ ATION 02/08/2023 [facility] DATE CREATED AUTHOR AUTHOR'S ORGANIZ ATION 07/14/2023 [facility] DATE CREATED AUTHOR AUTHOR'S ORGANIZ ATION 12/22/2024 [facility] Source Comments (unrecognize d section and content) In the event this informatio n is protected by the Federal Confidentiality of Alcohol and Drug Abuse Patient Records regulations: The Federal rules restrict any use of the information to criminally investigate or prosecute any alcohol or drug abuse patient.[facility] the event this information is protected by the Federal Confidentiality of Alcohol and Drug Abuse Patient Records regulations: The Federal rules restrict any use of the information to criminally investigate or prosecute any alcohol or drug abuse patient.[facility] HospitalIn the event this information is protected by the Federal Confidentiality of Alcohol and Drug Abuse Patient Records regulations: The Federal rules restrict any use of the information to criminally investigate or prosecute any alcohol or drug abuse patient.[facility] HospitalIn the event this information is protected by the Federal Confidentiality of Alcohol and Drug Abuse Patient Records regulations: The Federal rules restrict any use of the information to criminally investigate or prosecute any alcohol or drug abuse patient.[facility] HospitalIn the event this information is protected by the Federal Confidentiality of Alcohol and Drug Abuse Patient Records regulations: The Federal rules restrict any use of the information to criminally investigate or prosecute any alcohol or drug abuse patient.[facility] HospitalIn the event this information is protected by the Federal Confidentiality of Alcohol and Drug Abuse Patient Records regulations: The Federal rules restrict any use of the information to criminally investigate or prosecute any alcohol or drug abuse patient.[facility] HospitalIn the event this information is protected by the Federal Confidentiality of Alcohol and Drug Abuse Patient Records regulations: The Federal rules restrict any use of the information to criminally investigate or prosecute any alcohol or drug abuse patient.[facility] HospitalIn the event this information is protected by the Federal Confidentiality of Alcohol and Drug Abuse Patient Records regulations: The Federal rules restrict any use of the information to criminally investigate or prosecute any alcohol or drug abuse patient.[facility] HospitalIn the event this information is protected by the Federal Confidentiality of Alcohol and Drug Abuse Patient Records regulations: The Federal rules restrict any use of the information to criminally investigate or prosecute any alcohol or drug abuse patient.[facility] HospitalIn the event this information is protected by the Federal Confidentiality of Alcohol and Drug Abuse Patient Records regulations: The Federal rules restrict any use of the information to criminally investigate or prosecute any alcohol or drug abuse patient.[facility] HospitalIn the event this information is protected by the Federal Confidentiality of Alcohol and Drug Abuse Patient Records regulations: The Federal rules restrict any use of the information to criminally investigate or prosecute any alcohol or drug abuse patient.[facility] HospitalIn the event this information is protected by the Federal Confidentiality of Alcohol and Drug Abuse Patient Records regulations: The Federal rules restrict any use of the information to criminally investigate or prosecute any alcohol or drug abuse patient.[facility] HospitalIn the event this information is protected by the Federal Confidentiality of Alcohol and Drug Abuse Patient Records regulations: The Federal rules restrict any use of the information to criminally investigate or prosecute any alcohol or drug abuse patient.[facility] HospitalIn the event this information is protected by the Federal Confidentiality of Alcohol and Drug Abuse Patient Records regulations: The Federal rules restrict any use of the information to criminally investigate or prosecute any alcohol or drug abuse patient.[facility] HospitalIn the event this information is protected by the Federal Confidentiality of Alcohol and Drug Abuse Patient Records regulations: The Federal rules restrict any use of the information to criminally investigate or prosecute any alcohol or drug abuse patient.[facility] HospitalIn the event this information is protected by the Federal Confidentiality of Alcohol and Drug Abuse Patient Records regulations: The Federal rules restrict any use of the information to criminally investigate or prosecute any alcohol or drug abuse patient.[facility] HospitalIn the event this information is protected by the Federal Confidentiality of Alcohol and Drug Abuse Patient Records regulations: The Federal rules restrict any use of the information to criminally investigate or prosecute any alcohol or drug abuse patient.[facility] HospitalIn the event this information is protected by the Federal Confidentiality of Alcohol and Drug Abuse Patient Records regulations: The Federal rules restrict any use of the information to criminally investigate or prosecute any alcohol or drug abuse patient.[facility] HospitalIn the event this information is protected by the Federal Confidentiality of Alcohol and Drug Abuse Patient Records regulations: The Federal rules restrict any use of the information to criminally investigate or prosecute any alcohol or drug abuse patient.[facility] HospitalIn the event this information is protected by the Federal Confidentiality of Alcohol and Drug Abuse Patient Records regulations: The Federal rules restrict any use of the information to criminally investigate or prosecute any alcohol or drug abuse patient.[facility] HospitalIn the event this information is protected by the Federal Confidentiality of Alcohol and Drug Abuse Patient Records regulations: The Federal rules restrict any use of the information to criminally investigate or prosecute any alcohol or drug abuse patient.[facility] HospitalIn the event this information is protected by the Federal Confidentiality of Alcohol and Drug Abuse Patient Records regulations: The Federal rules restrict any use of the information to criminally investigate or prosecute any alcohol or drug abuse patient.[facility] HospitalIn the event this information is protected by the Federal Confidentiality of Alcohol and Drug Abuse Patient Records regulations: The Federal rules restrict any use of the information to criminally investigate or prosecute any alcohol or drug abuse patient.[facility] HospitalIn the event this information is protected by the Federal Confidentiality of Alcohol and Drug Abuse Patient Records regulations: The Federal rules restrict any use of the information to criminally investigate or prosecute any alcohol or drug abuse patient.[facility] HospitalIn the event this information is protected by the Federal Confidentiality of Alcohol and Drug Abuse Patient Records regulations: The Federal rules restrict any use of the information to criminally investigate or prosecute any alcohol or drug abuse patient.[facility] HospitalIn the event this information is protected by the Federal Confidentiality of Alcohol and Drug Abuse Patient Records regulations: The Federal rules restrict any use of the information to criminally investigate or prosecute any alcohol or drug abuse patient.[facility] HospitalIn the event this information is protected by the Federal Confidentiality of Alcohol and Drug Abuse Patient Records regulations: The Federal rules restrict any use of the information to criminally investigate or prosecute any alcohol or drug abuse patient.[facility] HospitalIn the event this information is protected by the Federal Confidentiality of Alcohol and Drug Abuse Patient Records regulations: The Federal rules restrict any use of the information to criminally investigate or prosecute any alcohol or drug abuse patient.[facility] HospitalIn the event this information is protected by the Federal Confidentiality of Alcohol and Drug Abuse Patient Records regulations: The Federal rules restrict any use of the information to criminally investigate or prosecute any alcohol or drug abuse patient.[facility] HospitalIn the event this information is protected by the Federal Confidentiality of Alcohol and Drug Abuse Patient Records regulations: The Federal rules restrict any use of the information to criminally investigate or prosecute any alcohol or drug abuse patient.[facility] HospitalIn the event this information is protected by the Federal Confidentiality of Alcohol and Drug Abuse Patient Records regulations: The Federal rules restrict any use of the information to criminally investigate or prosecute any alcohol or drug abuse patient.[facility] HospitalIn the event this information is protected by the Federal Confidentiality of Alcohol and Drug Abuse Patient Records regulations: The Federal rules restrict any use of the information to criminally investigate or prosecute any alcohol or drug abuse patient.[facility] HospitalIn the event this information is protected by the Federal Confidentiality of Alcohol and Drug Abuse Patient Records regulations: The Federal rules restrict any use of the information to criminally investigate or prosecute any alcohol or drug abuse patient.[facility] HospitalIn the event this information is protected by the Federal Confidentiality of Alcohol and Drug Abuse Patient Records regulations: The Federal rules restrict any use of the information to criminally investigate or prosecute any alcohol or drug abuse patient.[facility] HospitalIn the event this information is protected by the Federal Confidentiality of Alcohol and Drug Abuse Patient Records regulations: The Federal rules restrict any use of the information to criminally investigate or prosecute any alcohol or drug abuse patient.[facility] HospitalIn the event this information is protected by the Federal Confidentiality of Alcohol and Drug Abuse Patient Records regulations: The Federal rules restrict any use of the information to criminally investigate or prosecute any alcohol or drug abuse patient.[facility] HospitalIn the event this information is protected by the Federal Confidentiality of Alcohol and Drug Abuse Patient Records regulations: The Federal rules restrict any use of the information to criminally investigate or prosecute any alcohol or drug abuse patient.[facility] HospitalIn the event this information is protected by the Federal Confidentiality of Alcohol and Drug Abuse Patient Records regulations: The Federal rules restrict any use of the information to criminally investigate or prosecute any alcohol or drug abuse patient.[facility] HospitalIn the event this information is protected by the Federal Confidentiality of Alcohol and Drug Abuse Patient Records regulations: The Federal rules restrict any use of the information to criminally investigate or prosecute any alcohol or drug abuse patient.[facility] HospitalIn the event this information is protected by the Federal Confidentiality of Alcohol and Drug Abuse Patient Records regulations: The Federal rules restrict any use of the information to criminally investigate or prosecute any alcohol or drug abuse patient.[facility] HospitalIn the event this information is protected by the Federal Confidentiality of Alcohol and Drug Abuse Patient Records regulations: The Federal rules restrict any use of the information to criminally investigate or prosecute any alcohol or drug abuse patient.[facility] HospitalIn the event this information is protected by the Federal Confidentiality of Alcohol and Drug Abuse Patient Records regulations: The Federal rules restrict any use of the information to criminally investigate or prosecute any alcohol or drug abuse patient.[facility] HospitalIn the event this information is protected by the Federal Confidentiality of Alcohol and Drug Abuse Patient Records regulations: The Federal rules restrict any use of the information to criminally investigate or prosecute any alcohol or drug abuse patient.[facility] HospitalIn the event this information is protected by the Federal Confidentiality of Alcohol and Drug Abuse Patient Records regulations: The Federal rules restrict any use of the information to criminally investigate or prosecute any alcohol or drug abuse patient.[facility] HospitalIn the event this information is protected by the Federal Confidentiality of Alcohol and Drug Abuse Patient Records regulations: The Federal rules restrict any use of the information to criminally investigate or prosecute any alcohol or drug abuse patient.[facility] HospitalIn the event this information is protected by the Federal Confidentiality of Alcohol and Drug Abuse Patient Records regulations: The Federal rules restrict any use of the information to criminally investigate or prosecute any alcohol or drug abuse patient.[facility] HospitalIn the event this information is protected by the Federal Confidentiality of Alcohol and Drug Abuse Patient Records regulations: The Federal rules restrict any use of the information to criminally investigate or prosecute any alcohol or drug abuse patient.[facility] HospitalIn the event this information is protected by the Federal Confidentiality of Alcohol and Drug Abuse Patient Records regulations: The Federal rules restrict any use of the information to criminally investigate or prosecute any alcohol or drug abuse patient.[facility] HospitalIn the event this information is protected by the Federal Confidentiality of Alcohol and Drug Abuse Patient Records regulations: The Federal rules restrict any use of the information to criminally investigate or prosecute any alcohol or drug abuse patient.[facility] HospitalIn the event this information is protected by the Federal Confidentiality of Alcohol and Drug Abuse Patient Records regulations: The Federal rules restrict any use of the information to criminally investigate or prosecute any alcohol or drug abuse patient.[facility] HospitalIn the event this information is protected by the Federal Confidentiality of Alcohol and Drug Abuse Patient Records regulations: The Federal rules restrict any use of the information to criminally investigate or prosecute any alcohol or drug abuse patient.[facility] HospitalIn the event this information is protected by the Federal Confidentiality of Alcohol and Drug Abuse Patient Records regulations: The Federal rules restrict any use of the information to criminally investigate or prosecute any alcohol or drug abuse patient.[facility] HospitalIn the event this information is protected by the Federal Confidentiality of Alcohol and Drug Abuse Patient Records regulations: The Federal rules restrict any use of the information to criminally investigate or prosecute any alcohol or drug abuse patient.[facility] HospitalIn the event this information is protected by the Federal Confidentiality of Alcohol and Drug Abuse Patient Records regulations: The Federal rules restrict any use of the information to criminally investigate or prosecute any alcohol or drug abuse patient.[facility] HospitalIn the event this information is protected by the Federal Confidentiality of Alcohol and Drug Abuse Patient Records regulations: The Federal rules restrict any use of the information to criminally investigate or prosecute any alcohol or drug abuse patient.[facility] HospitalIn the event this information is protected by the Federal Confidentiality of Alcohol and Drug Abuse Patient Records regulations: The Federal rules restrict any use of the information to criminally investigate or prosecute any alcohol or drug abuse patient.[facility] HospitalIn the event this information is protected by the Federal Confidentiality of Alcohol and Drug Abuse Patient Records regulations: The Federal rules restrict any use of the information to criminally investigate or prosecute any alcohol or drug abuse patient.[facility] HospitalIn the event this information is protected by the Federal Confidentiality of Alcohol and Drug Abuse Patient Records regulations: The Federal rules restrict any use of the information to criminally investigate or prosecute any alcohol or drug abuse patient.[facility] HospitalIn the event this information is protected by the Federal Confidentiality of Alcohol and Drug Abuse Patient Records regulations: The Federal rules restrict any use of the information to criminally investigate or prosecute any alcohol or drug abuse patient.[facility] HospitalIn the event this information is protected by the Federal Confidentiality of Alcohol and Drug Abuse Patient Records regulations: The Federal rules restrict any use of the information to criminally investigate or prosecute any alcohol or drug abuse patient.[facility] HospitalIn the event this information is protected by the Federal Confidentiality of Alcohol and Drug Abuse Patient Records regulations: The Federal rules restrict any use of the information to criminally investigate or prosecute any alcohol or drug abuse patient.[facility] HospitalIn the event this information is protected by the Federal Confidentiality of Alcohol and Drug Abuse Patient Records regulations: The Federal rules restrict any use of the information to criminally investigate or prosecute any alcohol or drug abuse patient.[facility] HospitalIn the event this information is protected by the Federal Confidentiality of Alcohol and Drug Abuse Patient Records regulations: The Federal rules restrict any use of the information to criminally investigate or prosecute any alcohol or drug abuse patient.[facility] HospitalIn the event this information is protected by the Federal Confidentiality of Alcohol and Drug Abuse Patient Records regulations: The Federal rules restrict any use of the information to criminally investigate or prosecute any alcohol or drug abuse patient.[facility] HospitalIn the event this information is protected by the Federal Confidentiality of Alcohol and Drug Abuse Patient Records regulations: The Federal rules restrict any use of the information to criminally investigate or prosecute any alcohol or drug abuse patient.[facility] HospitalIn the event this information is protected by the Federal Confidentiality of Alcohol and Drug Abuse Patient Records regulations: The Federal rules restrict any use of the information to criminally investigate or prosecute any alcohol or drug abuse patient.[facility] HospitalIn the event this information is protected by the Federal Confidentiality of Alcohol and Drug Abuse Patient Records regulations: The Federal rules restrict any use of the information to criminally investigate or prosecute any alcohol or drug abuse patient.[facility] HospitalIn the event this information is protected by the Federal Confidentiality of Alcohol and Drug Abuse Patient Records regulations: The Federal rules restrict any use of the information to criminally investigate or prosecute any alcohol or drug abuse patient.[facility] HospitalIn the event this information is protected by the Federal Confidentiality of Alcohol and Drug Abuse Patient Records regulations: The Federal rules restrict any use of the information to criminally investigate or prosecute any alcohol or drug abuse patient.[facility] HospitalIn the event this information is protected by the Federal Confidentiality of Alcohol and Drug Abuse Patient Records regulations: The Federal rules restrict any use of the information to criminally investigate or prosecute any alcohol or drug abuse patient.[facility] HospitalIn the event this information is protected by the Federal Confidentiality of Alcohol and Drug Abuse Patient Records regulations: The Federal rules restrict any use of the information to criminally investigate or prosecute any alcohol or drug abuse patient.[facility] HospitalIn the event this information is protected by the Federal Confidentiality of Alcohol and Drug Abuse Patient Records regulations: The Federal rules restrict any use of the information to criminally investigate or prosecute any alcohol or drug abuse patient.[facility] HospitalIn the event this information is protected by the Federal Confidentiality of Alcohol and Drug Abuse Patient Records regulations: The Federal rules restrict any use of the information to criminally investigate or prosecute any alcohol or drug abuse patient.[facility] HospitalIn the event this information is protected by the Federal Confidentiality of Alcohol and Drug Abuse Patient Records regulations: The Federal rules restrict any use of the information to criminally investigate or prosecute any alcohol or drug abuse patient.[facility] HospitalIn the event this information is protected by the Federal Confidentiality of Alcohol and Drug Abuse Patient Records regulations: The Federal rules restrict any use of the information to criminally investigate or prosecute any alcohol or drug abuse patient.[facility] HospitalIn the event this information is protected by the Federal Confidentiality of Alcohol and Drug Abuse Patient Records regulations: The Federal rules restrict any use of the information to criminally investigate or prosecute any alcohol or drug abuse patient.[facility] HospitalIn the event this information is protected by the Federal Confidentiality of Alcohol and Drug Abuse Patient Records regulations: The Federal rules restrict any use of the information to criminally investigate or prosecute any alcohol or drug abuse patient.[facility] HospitalIn the event this information is protected by the Federal Confidentiality of Alcohol and Drug Abuse Patient Records regulations: The Federal rules restrict any use of the information to criminally investigate or prosecute any alcohol or drug abuse patient.[facility] HospitalIn the event this information is protected by the Federal Confidentiality of Alcohol and Drug Abuse Patient Records regulations: The Federal rules restrict any use of the information to criminally investigate or prosecute any alcohol or drug abuse patient.[facility] HospitalIn the event this information is protected by the Federal Confidentiality of Alcohol and Drug Abuse Patient Records regulations: The Federal rules restrict any use of the information to criminally investigate or prosecute any alcohol or drug abuse patient.[facility] HospitalIn the event this information is protected by the Federal Confidentiality of Alcohol and Drug Abuse Patient Records regulations: The Federal rules restrict any use of the information to criminally investigate or prosecute any alcohol or drug abuse patient.[facility] HospitalIn the event this information is protected by the Federal Confidentiality of Alcohol and Drug Abuse Patient Records regulations: The Federal rules restrict any use of the information to criminally investigate or prosecute any alcohol or drug abuse patient.[facility] HospitalIn the event this information is protected by the Federal Confidentiality of Alcohol and Drug Abuse Patient Records regulations: The Federal rules restrict any use of the information to criminally investigate or prosecute any alcohol or drug abuse patient.[facility] HospitalIn the event this information is protected by the Federal Confidentiality of Alcohol and Drug Abuse Patient Records regulations: The Federal rules restrict any use of the information to criminally investigate or prosecute any alcohol or drug abuse patient.[facility] HospitalIn the event this information is protected by the Federal Confidentiality of Alcohol and Drug Abuse Patient Records regulations: The Federal rules restrict any use of the information to criminally investigate or prosecute any alcohol or drug abuse patient.[facility] Reason for Visit (unrecogniz ed section and content) Reason Comments PT Progress Note Specialty Diagnoses / Procedures Referred By Contac t Referred To Contact [facility] Diagnoses DDD (degenerative disc disease), lumbar Spinal stenosis of cervical region Mass of soft tissue of forearm Hand numbness H/O cervical spine surgery Procedures CONSULT TO PHYSICAL THERAPY PHYSICAL THERAPY EVALUATION HIGH COMPLEX 45 MINS Luiza Fonseca MD [address] [place] [address] [facility] [address] [place] [address] Referral ID Status Reason Start Date Expiration Date Visits Requested Visits Authorized [id number] Authorized Auto-Generat ed Referral 05/05/2023 08/29/2023 50 50 Reason Comments Physical Therapy Reason Comments Pain pain rated 3, x3 day s lower back pain Hx 06/19 spinal surgery Follow Up recent travel, fligh t, driving Reason Comments Head Congestion drainage, fever x 2 days Reason Comments Orders Reason Comments Yearly Exam Reason Comments Future Appointment Reason Comments Consult Colonoscopy consult Specialty Diagnoses / Procedures Referred By Contac t Referred To Contact General Surgery Diagnoses Screening for colon cancer Family history of colon cancer Procedures CONSULT TO GENERAL SURGERY OFFICE/OUTPATIENT [facility] 60-74 MINUTES Fifi Pierre PA-C [address] [place] [address] Referral ID Status Reason Start Date Expiration Date V isits Requested Visits Authorized [id number] Closed PCP Requested Referral 10/06/2022 10/06/2023 1 1 Reason Comments Consult Reason Comments requesting medication refills Reason Comments Follow Up Reason Comments Results Reason Comments Low Back Pain Numbness Specialty Diagnoses / Procedures Referred By Contac t Referred To Contact [facility] Diagnoses DDD (degenerative disc disease), lumbar Procedures CONSULT TO [facility] OFFICE/OUTPATIENT [facility] 60-74 MINUTES Ashley Pugh APRN.SONOGRAPHY TECHNICIAN [address] [id number] Referral ID Status Reason Start Date Expiration Date V isits Requested Visits Authorized [id number] Closed PCP Requested Referral 04/08/2023 04/07/2024 1 1 Reason Comments FMLA Paperwork Short Term Disabilit y forms Reason Comments PT Eval Reason Comments insurance denied MRI Reason Onset Date Comments EMG 05/28/2023 Specialty Diagnoses / Procedures Referred By Contac t Referred To Contact [facility] Diagnoses DDD (degenerative disc disease), lumbar Spinal stenosis of cervical region Hand numbness H/O cervical spine surgery Procedures [facility](NEURO/NI) NERVE CONDUCTION STUDIES 9-10 STUDIES Luiza Fonseca MD [address] [place] [address] [facility] [place] [address] Referral ID Status Reason Start Date Expiration Date V isits Requested Visits Authorized [id number] Closed Auto-Generate d Referral 05/05/2023 05/05/2024 1 1 Reason Comments Outside Cardiology Reason Comments Follow Up Reason Comments Patient Question Reason Comments FMLA Forms-pcp office Reason Comments Forms Reason Comments Radiology CT Specialty Diagnoses / Procedures Referred By Contac t Referred To Contact CT IMAG[facility] Diagnoses Spinal stenosis of cervical region Procedures CT CERVICAL SPINE WO IVCON CT CERVICAL SPINE W/O CONTRAST MATERIAL Pelon Greenfield MD [address] [place] [address] [place] [address] Referral ID Status Reason Start Date Expiration Date V isits Requested Visits Authorized [id number] Closed Auto-Generate d Referral 09/17/2023 03/15/2024 1 1 Reason Comments Imaging Specialty Diagnoses / Procedures Referred By Contac t Referred To Contact [facility] Diagnoses Spinal stenosis of lumbar region with neurogenic claudication Procedures MRI LUMBAR SPINE WO IVCON MRI SPINAL CANAL LUMBAR W/O CONTRAST MATERIAL Pelon Greenfield MD [address] [place] [address] [place] [address] Referral ID Status Reason Start Date Expiration Date V isits Requested Visits Authorized [id number] Closed Auto-Generate d Referral 11/02/2023 04/30/2024 1 1 Reason Comments Results Reason Onset Date Comments Refill Request 12/08/2023 Reason Comments letter Reason Comments Established Patient Reason Comments Appointment Reason Comments Schedule Surgery Reason Comments Pre-Op Exam Reason Comments Physical Reason Comments Follow Up Received Outside Medical Records cardiol ogy Reason Comments Transition Of Care Reason Comments Surgical Followup 4 weeks post-op (cer vical spine) Reason Comments Follow Up Post Op Neck Pain Patient states havin g 0/10 pain. ROM is good. Reason Comments Edema Leg/ feet swelling X 1.5 weeks Reason Onset Date Comments Refill Request 06/20/2024 Reason Comments Chest Congestion cough and sore throa t x 2 weeks Reason Onset Date Comments Refill Request 09/17/2024 Reason Comments Pain Left shoulder pain Reason Comments Back Pain Care Teams (unrecognized sec tion and content) Molder Shoulder Pad Relationship Specialty Start Date End Date Kota Barba APRN.CNP, DNP [address] [place] [address] PCP - General Family Practice 12/16/20 Molder Shoulder Pad Relationship Specialty Start Date End Date Kota Barba APRN.CNP, DNP [address] [place] [address] PCP - General Family Practice 12/16/20 Molder Shoulder Pad Relationship Specialty Start Date End Date Kota Barba APRN.SONOGRAPHY TECHNICIAN, DNP [address] [place] [address] PCP - General Family Medicine 12/16/20 Molder Shoulder Pad Relationship Specialty Start Date End Date Kota Barba APRN.SONOGRAPHY TECHNICIAN, DNP [address] [place] [address] PCP - General Family Medicine 12/16/20 Molder Shoulder Pad Relationship Specialty Start Date End Date Kota Barba APRN.MELISSA, DNP [address] [place] [address] PCP - General Family Medicine 12/16/20 Molder Shoulder Pad Relationship Specialty Start Date End Date Colton Rosario MD [address] [place] [address] PCP - General Family Medicine 10/06/22 Team Status: Active Member Role Status Dates Dr. Colton Rosario MD Family Provider Active Dr. Colton Rosario MD Primary Care Provider Active Team Status: Active Member Role Status Dates Dr. Willie Terry DO Emergency Provider Active Dr. Colton Rosario MD Primary Care Provider Active Dr. Ludy Salazar MD Admit Provider, Attending Prov ider Active Team Status: Active Member Role Status Dates Dr. Colton Rosario MD Primary Care Provider Active Dr. Natanael Dunn MD Attending Provider Active Team Status: Active Member Role Status Dates Dr. Willie Terry DO Emergency Provider Active Dr. Colton Rosario MD Primary Care Provider Active Dr. Ludy Salazar MD Admit Provider, Attending Provider, Other Provider Active Team Status: Inactive Member Role Status Dates Dr. Willie Terry DO Emergency Provider Active Dr. Colton Rosario MD Primary Care Provider Active Dr. Ludy Salazar MD Admit Provider, Attending Prov ider Active Molder Shoulder Pad Relationship Specialty Start Date End Date Colton Rosario MD [address] [place] [address] PCP - General Family Medicine 10/06/22 Molder Shoulder Pad Relationship Specialty Start Date End Date Colton Rosario MD [address] [place] [address] PCP - General Family Medicine 10/06/22 Molder Shoulder Pad Relationship Specialty Start Date End Date Colton Rosario MD [address] [place] [address] PCP - General Family Medicine 10/06/22 Molder Shoulder Pad Relationship Specialty Start Date End Date Colton Rosario MD [address] [place] [address] PCP - General Family Medicine 10/06/22 Molder Shoulder Pad Relationship Specialty Start Date End Date Colton Rosario MD [address] [place] [address] PCP - General Family Medicine 10/06/22 Molder Shoulder Pad Relationship Specialty Start Date End Date Colton Rosario MD [address] [place] [address] PCP - General Family Medicine 10/06/22 Molder Shoulder Pad Relationship Specialty Start Date End Date Colton Rosario MD [address] [place] [address] PCP - General Family Medicine 10/06/22 Molder Shoulder Pad Relationship Specialty Start Date End Date Colton Rosario MD [address] [place] [address] PCP - General Family Medicine 10/06/22 Molder Shoulder Pad Relationship Specialty Start Date End Date Colton Rosario MD [address] [place] [address] PCP - General Family Medicine 10/06/22 Molder Shoulder Pad Relationship Specialty Start Date End Date Colton Rosario MD [address] [place] [address] PCP - General Family Medicine 10/06/22 Molder Shoulder Pad Relationship Specialty Start Date End Date Colton Rosario MD [address] [place] [address] PCP - General Family Medicine 10/06/22 Molder Shoulder Pad Relationship Specialty Start Date End Date Colton Rosario MD [address] [place] [address] PCP - General Family Medicine 10/06/22 Molder Shoulder Pad Relationship Specialty Start Date End Date Colton Rosario MD [address] [place] [address] PCP - General Family Medicine 10/06/22 Molder Shoulder Pad Relationship Specialty Start Date End Date Colton Rosario MD [address] [place] [address] PCP - General Family Medicine 10/06/22 Molder Shoulder Pad Relationship Specialty Start Date End Date Colton Rosario MD [address] [place] [address] PCP - General Family Medicine 10/06/22 Molder Shoulder Pad Relationship Specialty Start Date End Date Colton Rosario MD [address] [place] [address] PCP - General Family Medicine 10/06/22 Molder Shoulder Pad Relationship Specialty Start Date End Date Colton Rosario MD [address] [place] [address] PCP - General Family Medicine 10/06/22 Molder Shoulder Pad Relationship Specialty Start Date End Date Colton Rosario MD [address] [place] [address] PCP - General Family Medicine 10/06/22 Molder Shoulder Pad Relationship Specialty Start Date End Date Colton Rosario MD [address] [place] [address] PCP - General Family Medicine 10/06/22 Molder Shoulder Pad Relationship Specialty Start Date End Date Colton Rosario MD [address] [place] [address] PCP - General Family Medicine 10/06/22 Molder Shoulder Pad Relationship Specialty Start Date End Date Colton Rosario MD [address] [place] [address] PCP - General Family Medicine 10/06/22 Molder Shoulder Pad Relationship Specialty Start Date End Date Colton Rosario MD [address] [place] [address] PCP - General Family Medicine 10/06/22 Molder Shoulder Pad Relationship Specialty Start Date End Date Colton Rosario MD [address] [place] [address] PCP - General Family Medicine 10/06/22 Molder Shoulder Pad Relationship Specialty Start Date End Date Colton Rosario MD [address] [place] [address] PCP - General Family Medicine 10/06/22 Molder Shoulder Pad Relationship Specialty Start Date End Date Colton Rosario MD [address] [place] [address] PCP - General Family Medicine 10/06/22 Molder Shoulder Pad Relationship Specialty Start Date End Date Colton Rosario MD [address] [place] [address] PCP - General Family Medicine 10/06/22 Molder Shoulder Pad Relationship Specialty Start Date End Date Colton Rosario MD [address] [place] [address] PCP - General Family Medicine 10/06/22 Molder Shoulder Pad Relationship Specialty Start Date End Date Colton Rosario MD [address] [place] [address] PCP - General Family Medicine 10/06/22 Molder Shoulder Pad Relationship Specialty Start Date End Date Colton Rosario MD [address] [place] [address] PCP - General Family Medicine 10/06/22 Molder Shoulder Pad Relationship Specialty Start Date End Date Colton Rosario MD [address] [place] [address] PCP - General Family Medicine 10/06/22 Natanael Dunn MD [address] [place] [id number] Cardiology 02/17/24 Molder Shoulder Pad Relationship Specialty Start Date End Date Colton Rosario MD [address] [place] [address] PCP - General Family Medicine 10/06/22 Natanael Dunn MD [address] [place] [address] Cardiology 02/17/24 Molder Shoulder Pad Relationship Specialty Start Date End Date Colton Rosario MD [address] [place] [address] PCP - General Family Medicine 10/06/22 Natanael Dunn MD [address] [place] [address] Cardiology 02/17/24 Molder Shoulder Pad Relationship Specialty Start Date End Date Colton Rosario MD [address] [place] [address] PCP - General Family Medicine 10/06/22 Natanael Dunn MD [address] [place] [address] Cardiology 02/17/24 ProviderQuinn MD Administrative Support Assistant 03/04/24 03/17/24 Molder Shoulder Pad Relationship Specialty Start Date End Date Colton Rosario MD [address] [place] [address] PCP - General Family Medicine 10/06/22 Natanael Dunn MD [address] [place] [address] Cardiology 02/17/24 Molder Shoulder Pad Relationship Specialty Start Date End Date Colton Rosario MD [address] [place] [address] PCP - General Family Medicine 10/06/22 Natanael Dunn MD [address] [place] [address] Cardiology 02/17/24 Molder Shoulder Pad Relationship Specialty Start Date End Date Colton Rosario MD [address] [place] [address] PCP - General Family Medicine 10/06/22 Natanael Dunn MD [address] [place] [address] Cardiology 02/17/24 Molder Shoulder Pad Relationship Specialty Start Date End Date Colton Rosario MD [address] [place], [place] [phone] PCP - General Family Medicine 10/06/22 Natanael Dunn MD [address] [place] [phone] Cardiology 02/17/24 Molder Shoulder Pad Relationship Specialty Start Date End Date Colton Rosario MD [address] [place] [address] PCP - General Family Medicine 10/06/22 Natanael Dunn MD [address] [place] [address] Cardiology 02/17/24 Molder Shoulder Pad Relationship Specialty Start Date End Date Colton Rosario MD [address] [place] [address] PCP - General Family Medicine 10/06/22 Natanael Dunn MD [address] [facility] [place] [address] Cardiology 02/17/24 Molder Shoulder Pad Relationship Specialty Start Date End Date Colton Rosario MD [address] [place] [address] PCP - General Family Medicine 10/06/22 Molder Shoulder Pad Relationship Specialty Start Date End Date Kota Barba APRN.DYLAN TORRES [address] [place] [address] PCP - General Family Medicine 12/16/20 10/05/22 Molder Shoulder Pad Relationship Specialty Start Date End Date Kota Barba APRN.DYLAN TORRES [address] [facility] [address] PCP - General Family Medicine 12/16/20 10/05/22 Molder Shoulder Pad Relationship Specialty Start Date End Date Colton Rosario MD [address] [place] [address] PCP - General Family Medicine 10/06/22 Natanael Dunn MD [address] [facility] [place] [address] Cardiology 02/17/24 Molder Shoulder Pad Relationship Specialty Start Date End Date Colton Rosario MD [address] [place] [address] PCP - General Family Medicine 10/06/22 Natanael Dunn MD [address] [place] [address] Cardiology 02/17/24 Molder Shoulder Pad Relationship Specialty Start Date End Date Colton Rosario MD [address] [place] [address] PCP - General Family Medicine 10/06/22 Natanael Dunn MD [address] [place] [address] Cardiology 02/17/24 Molder Shoulder Pad Relationship Specialty Start Date End Date Colton Rosario MD [address] [place] [address] PCP - General Family Medicine 10/06/22 Natanael Dunn MD [address] [place] [address] Cardiology 02/17/24 Ashley Pugh APRN.CNP [address] [place], [place] [id number] [phone] Support Assistant Family Medicine 08/05/24 Fifi Pierre PA-C [address] [place] [address] Administrative Support Assistant Family Medicine 08/05/24 Molder Shoulder Pad Relationship Specialty Start Date End Date Colton Rosario MD [address] [place] [address] PCP - General Family Medicine 10/06/22 Natanael Dunn MD [address] [place] [address] Cardiology 02/17/24 Ashley Pugh APRN.SONOGRAPHY TECHNICIAN [address] [place] [address] Administrative Support Assistant Family Medicine 08/05/24 Fifi Pierre PA-C [address] [place] [address] Administrative Support Assistant Family Medicine 08/05/24 Molder Shoulder Pad Relationship Specialty Start Date End Date Colton Rosario MD [address] [place] [address] PCP - General Family Medicine 10/06/22 Natanael Dunn MD [address] [place] [address] Cardiology 02/17/24 Ashley Pugh APRN.SONOGRAPHY TECHNICIAN [address] [place] [address] Administrative Support Assistant Family Medicine 08/05/24 Fifi Pierre PA-C [address] [place] [address] Administrative Support Assistant Family Medicine 08/05/24 Molder Shoulder Pad Relationship Specialty Start Date End Date Colton Rosario MD [address] [place], [place] [id number] [phone] PCP - General Family Medicine 10/06/22 Natanael Dunn MD [address] [place] [address] Cardiology 02/17/24 Ashley Pugh APRN.SONOGRAPHY TECHNICIAN [address] [place], [place] [phone] [facility] 08/05/24 Fifi Pierre PA-C [address] [place], [place] [id number] [facility] 08/05/24 Molder Shoulder Pad Relationship Specialty Start Date End Date Colton Rosario MD [address] [place], [place] [id number] PCP - General Family Medicine 12/04/24 Natanael Dunn MD [address] [place] [address] Cardiology 02/17/24 Ashley Pugh APRN.SONOGRAPHY TECHNICIAN [address] [place], [place] [id number] [facility] 01/29/25 Fifi Pierre PA-C [address] [place], [place] [phone] [facility] 01/29/25 Goals (unrecognized section and content) Goals may be documented in a n alternate sectionGoals may be documented in an alternate section FOR RECORDS PERTAINING TO PATIENTS WHO ARE OR HAVE BEEN ENROLLED IN A CHEMICAL DEPENDENCY/SUBSTANCEABUSE PROGRAM, SOME INFORMATION MAY BE OMITTED. This clinical summary was aggregated from multiple sources. Caution should be exercised in using it in the provision of clinical care. This summary normalizes information from multiple sources, and as a consequence, information in this document may materially change the coding, format and clinical context of patient data. In addition, data may be omitted in some cases. CLINICAL DECISIONS SHOULD BE BASED ON THE PRIMARY CLINICAL RECORDS. [facility], [facility]. provides no warranty or guarantee of the accuracy or completeness of information in this document.
[2025-02-08] MEDS: cycloBENZAPRine HCl 10 MG Tablet PO (22:08)
[2025-02-08] MEDS: Ketorolac 30 MG/ML Syringe IM (22:08)
[2025-02-08 23:00] VITALS: BP 151/109; PULSE 80; RESP 16; O2SAT 100
[2025-02-08 23:29] VITALS: BP 151/109; PULSE 80; RESP 18; TEMP 36.6; O2SAT 100
--- NOTE | 2025-02-08 23:45 | ED.VIS.BACK ---
HPI History of Present Illness Chief Complaint: Back Narrative Narrative: Chief complaint and HPI: Lumbar back pain. 54-year-old male with past medical history of chronic back pain presents for evaluation of lumbar back pain. Patient states he has a history of a lumbar fusion in 2010 here at [facility]. States since then he has had chronic lumbar back pain. States he is also had 2 cervical fusions done at [facility] with the last one being performed by Dr. Greenfield. Patient states his last follow-up with him was approximately 1 year ago. He states at that time he was having lumbar back pain in which Dr. Greenfield referred him to a lumbar spine surgeon however he did not follow-up with them. Patient states for the past week he has had diarrhea which has caused him to feel like he cannot hold his bowels as well. States he soiled himself one time with coughing. He denies any abdominal pain, nausea, vomiting. States that the last couple days he has had increased in his chronic pain. States he called his PCPs office today to be seen but they requested him go to the emergency department. Patient states that he periodically has radiation of the pain into his left thigh but that this quickly resolves and is not all the time. He states this is not new. He denies any numbness, saddle paresthesias or anesthesia, weakness, urinary retention or incontinence, fever, chills, recent invasive elucidation of the spine, intravenous drug use. No difficulty in ambulating. Denies any trauma. Review of systems: See HPI Medications: As listed on the chart Allergies: As listed on the chart PFSH: Per chart Vital signs: As listed on the chart. Reviewed. Physical exam: Gen: A&O x3, NAD Head: Normocephalic, atraumatic Eyes: No sclera icterus, conjunctiva clear ENT: Moist mucous membranes Neck: Trachea midline, full range of motion, nontender CV: RRR, no murmurs, no peripheral edema Resp: Lungs CTA BL, no w/r/c GI: Abd soft, non-distended, non-tender, no r/r/g Rectal: Normal external examination. External nonthrombosed hemorrhoid. Normal tone and sensation. No masses, fluctuance, or tenderness. No pain out of proportion. Musc: Normal ambulation, full ROM, no deformity, strength +5/5 in all extremities, no midline spinal tenderness, no bony step-off, no signs of cellulitis or infection, tender to palpation of the left lumbar paraspinal musculature as well as the left buttock, DP/PT pulses +2 bilaterally, no saddle anesthesia Skin: Warm, dry, intact Neuro: Alert, oriented, grossly intact, sensation intact Psych: Cooperative, appropriate mood and affect [facility] Medical History Abnormal ECG Agitated depression Cervical disc disease Chronic back pain Chronic renal insufficiency Essential hypertension Fatty liver Irregular heart beat Obesity JOSELITO (obstructive sleep apnea) Tobacco abuse Home Medications ?Medication ?Instructions ?Recorded ?Last Taken ?Type amlodipine 10 mg tablet 10 mg PO DAILY #30 tabs 10/08/22 Unknown Rx hydrochlorothiazide 25 mg tablet 25 mg PO DAILY #30 tabs 10/08/22 Unknown Rx lisinopril 40 mg tablet 40 mg PO DAILY #30 tabs 10/08/22 Unknown Rx cyclobenzaprine 5 mg tablet 5 mg PO TID PRN muscle spasm 3 02/08/25 Unknown Rx days #9 tabs hydrocodone-acetaminophen 5-325mg 1 tab PO Q6H PRN PRN Pain 3 days 02/08/25 Unknown Rx 5mg-325mg #10 TABLETS Allergy/AdvReac Type Severity Reaction Status Date / Time lorazepam (From Ativan) Allergy Unknown GI upset Verified 02/08/25 19:59 paroxetine (From Paxil) Allergy Unknown Diarrhea Verified 02/08/25 19:59 sertraline (From Zoloft) Allergy Unknown GI Upset Verified 02/08/25 19:59 Family History Father Prostate cancer Diabetes Colon cancer Hypertension Grandfather Colon cancer Diabetes Prostate cancer Grandmother Hypertension Surgical History H/O Spinal surgery History of colonoscopy Social History household members: family 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 current occupational exposures/hazards: No Smoking Status: Current every day smoker tobacco type: cigarettes alcohol intake: current alcohol intake frequency: 3 or more drinks per day details: 3-4 beers and a few shots of whiskey per day on average substance use type: does not use EXAM Physical Exam Const Vital Signs: 02/08/25 19:59 02/08/25 20:55 02/08/25 21:49 Temperature 97.2 F L Temperature Source Temporal Pulse Rate 93 91 85 Respiratory Rate 15 18 18 Blood Pressure 173/108 H 155/99 H 146/98 H Blood Pressure Mean 129 117 114 Pulse Ox 100 100 98 Oxygen Delivery Method Room Air Room Air Room Air 02/08/25 22:00 02/08/25 23:00 02/08/25 23:29 Temperature 98 F Temperature Source Pulse Rate 85 80 80 Respiratory Rate 18 16 18 Blood Pressure 133/83 H 151/109 H 151/109 H Blood Pressure Mean 99 123 123 Pulse Ox 100 100 100 Oxygen Delivery Method Room Air MDM MDM MDM Narrative Medical decision making narrative: 54-year-old male with past medical history of chronic back pain presents for evaluation of lumbar back pain. Patient states he has a history of a lumbar fusion in 2010 here at [facility]. States since then he has had chronic lumbar back pain. Patient states that he had an MRI of the lumbar spine approximately 1 year ago in which he was referred to a lumbar surgeon by his cervical spine surgeon however he states he never followed up. Patient states over the last several days he has had increased in his back pain. However he denies any numbness, saddle paresthesias or anesthesias, weakness, urinary retention or incontinence, fever, chills, recent invasive manipulation of the spine, intermittent drug use, or trauma. He does state that he soiled himself with stool one time with coughing secondary to diarrhea that he has had over the past week. Denies any abdominal pain, nausea, vomiting. Patient states he called his PCP in order to make an appointment and was referred to the emergency department. On physical exam, patient has normal ambulation with full range of motion. Strength is plus 5 out of 5 in all extremities. No midline spinal tenderness. No signs of infection. Patient does have tenderness to palpation of the left lumbar paraspinal musculature as well as the left buttocks. Rectal exam unremarkable with good anal tone. No saddle anesthesias. Last MRI we have in our system of the lumbar spine is from 2010. In July 2011 he had surgery of the lumbar spine which I reviewed the operative note. On presentation, patient is hypertensive but otherwise vitals are unremarkable. He has a history of hypertension. I also think this is elevated secondary to pain. Patient offered narcotic but declined. Okay with IM Toradol and muscle relaxer, this was ordered. Patient presents for evaluation of acute on chronic back pain. There has been no trauma. Nothing to suggest any infectious etiology. There is no neurological findings as well as physical exam does not suggest an acute cauda equina syndrome or acute radiculopathy. Although he did have one episode of stooling himself he states that this was associated with coughing and diarrhea that he has had for the past week. At this point I do not feel any emergent MRI is warranted. However given he has acute on chronic back pain we will get CT of the lumbar spine to assess for occult fracture or hardware malfunction. I do not think any laboratory workup is needed. Patient in agreement. CT of the lumbar spine shows no evidence of acute fracture or dislocation. He has an L5-S1 anterior fusion. Mild discogenic degenerative changes at the nonfused levels. Vertebral body heights are maintained. Spondylosis. On reevaluation, patient states his pain has improved. Denies any changes such as weakness, numbness/tingling. Moving in the bed and ambulating without difficulty. Patient is stable to discharge home. Will send him a prescription for muscle relaxers as needed. Patient is requesting some narcotics as needed for severe pain. He was prescribed this. Follow-up with primary care physician as well as his lumbar spine surgeon. If he does not want to see that surgeon I also referred him to the spine surgeon here at our hospital. Patient and were educated on the symptoms of cauda equina. Told return back to the ED if he develops any symptoms or have change or worsening symptoms. He confirmed understanding of the plan. Patient stable to discharge home. His blood pressure has improved however is still hypertensive, he was told to follow-up with his PCP for this. Impression: 1. Acute on chronic back 2. Diarrhea Radiography Diagnostic Testing: Clinical Impression(s) from Imaging Studies Lumbar Spine CT 02/08/25 22:00 IMPRESSION: L5-S1 fusion. Spondylosis. Reading Location: [place] [address] Discharge Plan Triage Chief Complaint: Back ED Provider: Kirby Glaser Dx/Rx/DC Orders Clinical Impression: Lumbar back pain Instructions: ED Back Pain (Acute or Chronic) Prescriptions: New hydrocodone-acetaminophen 5-325 mg tablet 1 tab PO Q6H PRN PRN (Reason: Pain) 3 Days Qty: 10 0RF cyclobenzaprine 5 mg tablet 5 mg PO TID PRN (Reason: muscle spasm) 3 Days Qty: 9 0RF No Action amlodipine 10 mg Tablet 10 mg PO DAILY Qty: 30 2RF hydrochlorothiazide 25 mg Tablet 25 mg PO DAILY Qty: 30 2RF lisinopril 40 mg Tablet 40 mg PO DAILY Qty: 30 2RF Primary Care Provider: Colton Hammond Referrals: Derrick Novak MD [Med Staff - Active Staff] - 3-5 Days Colton Hammond MD [Primary Care Provider] - 3-5 Days Activity Restrictions/Additional Instructions: Follow-up with the orthopedic spine surgeon that you were referred to. If you do not want to follow-up with them follow-up with the spine surgeon above here at [place]. Return back to the ED if symptoms change or worsen. Monitor for signs of symptoms of cauda equina which we talked about. Follow-up with your primary care physician. Take narcotics as only for severe pain. Do not drive or operate heavy machinery while taking narcotics. Your blood pressure has been elevated here in the emergency department, likely secondary to your back pain however you have a history of high blood pressure. Make sure that you monitor it at home and follow-up with your primary care physician. Muscle relaxer as needed for spasms. Do not drive or operate heavy machinery while taking these. These can increase lightheadedness, confusion, falls. Print Language: Kiswahili Disposition Disposition: Home, Self Care Discharge Date/Time: 02/08/25 23:30
== END 2025-02-08 23:30 | disposition home or self-care (01) ==
PROVIDERS: Emergency Provider Surgery; PCP Family Medicine; Referring Provider Surgery; Visit Provider Surgery
DX: M54.50 Low back pain, unspecified (principal); R19.7 Diarrhea, unspecified; F17.210 Nicotine dependence, cigarettes, uncomplicated; I10 Essential (primary) hypertension; Z79.899 Other long term (current) drug therapy
CPT/HCPCS: 72131; 96372; 99282